=== PATIENT | female | born 1945 | race Caucasian/White ===

== ENCOUNTER → 2016-11-05 | Day surgery (SDC) | payer OTHER ==
[2016-11-03 08:39] VITALS: Ht 157.5 cm; Wt 70.9 kg
[~2016-11-05] VITALS: Ht 157.5 cm; Wt 70.9 kg
[~2016-11-05] MED LIST: ACET-1256 PO; ACET-24 PO; ASPEC81 PO; CALCTAB7 PO; CLN150 PO; CLOP1TAB15 PO; FRRG PO; GLC/500 PO; GLC500 PO; GLIP-199 PO; GLIP1TAB85 PO; HYDR25TA5 PO; IOPAMIDOL INJ 61% 15 ML VIAL ONE; LAMO100T PO; LEVO112T4 PO; LIDOCAINE HCL 1% MPF 5 ML VIAL ONE; LPT40 PO; MULT-890 PO; PLV75 PO; SODIUM CHLORIDE 0.9% INJ 10 ML VIAL ONE; ULT50X PO; ZONI100C39 PO
--- NOTE | 2016-11-05 14:15 | History & Physical Bridge - [place] ---
H&P Re-Evaluation Bridge Note: I have examined the patient, reviewed the History & Physical and in the interval since the performance of the History & Physical I have noted the following changes of clinical significance: No changes noted
[2016-11-05 14:58] VITALS: TEMP 36.6
--- NOTE | 2016-11-05 15:04 | Discharge Instructions ---
Discharge Instructions Visit Reason for Visit: Lumbar Radiculopathy Discharge Discharge Diagnosis / Problem: Stenosis with radiculopathy Discharge Goals Goal(s): Decrease discomfort, Improve function Medications Stopped Medications Name(s): plavix stopped. last dose on wednesday. Activity Recommendations Activity Limitations: resume your previous activity Anesthesia . Post Anesthesia Instructions: If you have had General Anesthesia or IV Sedation: * Do not drive today. * Resume driving when surgeon permits. * Do not make important decisions or sign legal documents today. * Call surgeon for: 1. Temperature elevations greater than 101 degrees F. 2. Uncontrollable pain. 3. Excessive bleeding. 4. Persistent nausea and vomiting. 5. Medication intolerance (nausea, vomiting or rash). * For nausea and vomiting use only clear liquids such as: tea, soda, bouillon until nausea subsides, then gradually increase diet as tolerated. * If you have any concerns or questions, call your surgeon's office. If physician is unavailable and it is an emergency, call 911 or go to the nearest emergency room. . Diet Recommendations Recommended Home Diet: resume previous diet Procedures Procedures Performed: Lumbar Epidural Steroid Injection. Changed to caudal aproach due to patient position. Pending Studies Studies pending at discharge: no Medical Emergencies . Who to Call and When: Medical Emergencies: If at any time you feel your situation is an emergency, please call 911 immediately. . Non-Emergent Contact Non-Emergency issues call your: Specialist . . "Provider Documentation" section prepared by Cholo Castillo.
[2016-11-05 15:11] VITALS: BP 150/68; PULSE 70; O2SAT 97
--- NOTE | 2016-11-05 15:14 | OPERATIVE REPORT ---
DATE OF OPERATION: 11/05/2016 PREOPERATIVE DIAGNOSIS: Severe lumbar stenosis with right lower extremity radiculopathy. POSTOPERATIVE DIAGNOSIS: Same. PROCEDURE: Caudal epidural steroid injection under fluoroscopic guidance. INDICATIONS FOR PROCEDURE: The patient is a 71-year-old white female who underwent an epidural steroid injection in 2005 with relief of right lower extremity radiculopathy. She presents today with similar pain that is problematic to her. She presents today for an epidural injection to provide her with relief. PHYSICAL EXAMINATION: Pleasant female seated comfortably in no apparent distress. She has some point tenderness to palpation of her right sciatic notch. She has no focal weakness of lower extremities and intact sensation. CONSENT: Verbal and written consent was obtained from the patient. Risks and benefits were reviewed. Risks include but are not limited to epidural abscess, epidural hematoma, allergic reaction, dural puncture. The patient wishes to proceed. DESCRIPTION OF PROCEDURE: The patient was taken back to the special procedures room of the [facility] where she was maintained in a prone position as best was able. She was unable to lay flatly prone and was angled about 30 degrees secondary to a shoulder difficulties. Attempt was made to try to enter at the L5-S1 intralaminar space on the right but given the challenges with positioning, it could not be advanced. Decision was then made to enter via a caudal approach and this side was then cleansed with Betadine x3 and anesthetized with additional 1 mL of lidocaine 1%, 25-gauge 1.5-inch needle and then a 25-gauge 3.5-inch spinal needle was then used to enter the hiatus and advanced along the canal. This was confirmed with lateral views. She then underwent injection after negative aspiration of 40 mg of Depo-Medrol and 4 mL of preservative free sodium chloride. Procedure was well tolerated. DISPOSITION: 1. The patient is taken out into the discharge recovery area where she will be discharged home once discharge criteria have been met. 2. Follow up in the [facility] office in 2-4 weeks. I attest to the content of the Intraoperative Record and any orders documented therein. Any exceptio ns are noted below.
== END | disposition home or self-care (01) ==
LOC: X.SURG 13:30
PROVIDERS: ATTEND Physical Medicine & Rehabilitation
DX: M54.16 Radiculopathy, lumbar region (principal); E11.9 Type 2 diabetes mellitus without complications; E78.5 Hyperlipidemia, unspecified; I10 Essential (primary) hypertension; E03.9 Hypothyroidism, unspecified; K21.9 Gastro-esophageal reflux disease without esophagitis; Z90.710 Acquired absence of both cervix and uterus; Z90.49 Acquired absence of other specified parts of digestive tract; Z88.5 Allergy status to narcotic agent

== ENCOUNTER 2016-11-06 16:22 | Emergency (ER) | payer OTHER ==
[~2016-11-06] VITALS: Ht 154.9 cm; Wt 68.3 kg
[~2016-11-06 16:22] MED LIST changes: -ACET-1256 PO; -ACET-24 PO; -ASPEC81 PO; -CLOP1TAB15 PO; -FRRG PO; -GLC/500 PO; -IOPAMIDOL INJ 61% 15 ML VIAL ONE; -LIDOCAINE HCL 1% MPF 5 ML VIAL ONE; -MULT-890 PO; -SODIUM CHLORIDE 0.9% INJ 10 ML VIAL ONE; -ULT50X PO
[2016-11-06 16:27] VITALS: TEMP 36.6; Ht 154.9 cm; Wt 68.3 kg
[2016-11-06] MEDS ORDERED: ACET-1256 PO (16:44)
[2016-11-06] MEDS ORDERED: TRAMADOL HCL 50 MG TAB PO STA (17:10)
[2016-11-06] MEDS ORDERED: LIDOCAINE/EPINEPHRINE 1% 20 ML VIAL INFIL ONE (18:15)
--- NOTE | 2016-11-06 18:17 | DIAGNOSTIC IMAGING REPORT ---
CT OF THE HEAD WITHOUT CONTRAST CLINICAL HISTORY: Fall. COMPARISON STUDY: Head CT May 29, 2013. CT DOSE: 1017.19 mGy.cm TECHNIQUE: Helical axial images of the head were obtained without IV contrast. Automated exposure control was utilized for the study. FINDINGS: No acute intracranial hemorrhage, midline shift or mass effect is present. Ventricular system is normal. The basilar cisterns are patent. There are no extra-axial collections. 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 There is marked cerebellar atrophy. This is unchanged. No calvarial fracture is present. There is a small left posterior scalp contusion. IMPRESSION: 1. No acute intracranial findings. No change in appearance of the brain. 2. Left posterior scalp contusion. No calvarial fracture. Electronically signed by: Aakash Jaramillo M.D. 11/06/2016 6:15 PM Dictated Date/Time: 11/06/2016 6:11 PM
[2016-11-06 18:25] VITALS: BP 132/74; PULSE 68; O2SAT 99
--- NOTE | 2016-11-06 18:30 | DIAGNOSTIC IMAGING REPORT ---
CT OF THE CERVICAL SPINE WITHOUT CONTRAST CLINICAL HISTORY: Fall. COMPARISON STUDY: Cervical spine CT September 25, 2012. TECHNIQUE: Helical axial images of the cervical spine were obtained without IV contrast. Sagittal and coronal reconstructions were viewed. FINDINGS: No acute fracture is identified. Marked degenerative changes at the C1-C2 articulation are present. There is moderate multilevel degenerative disc disease and severe multilevel facet arthrosis. There is no prevertebral edema. No pneumothorax is shown within visualized portions of the lung apices. The craniocervical junction is intact. IMPRESSION: No acute cervical spine fracture or subluxation. Electronically signed by: Aakash Jaramillo M.D. 11/06/2016 6:28 PM Dictated Date/Time: 11/06/2016 6:25 PM
--- NOTE | 2016-11-06 18:53 | EMERGENCY ROOM VISIT NOTE ---
ED Visit Note 71-year-old female who I was asked by Dr. Collins, ED attending physician, to perform a scalp laceration repair. Please see his dictation for further treatment and final disposition. PROCEDURE NOTE: Examination of the left upper occiput shows a 1 cm vertical laceration without active bleeding or hematoma formation. The patient provided verbal consent for laceration repair under local anesthesia. Using lidocaine 1 % with epinephrine, good local anesthesia was administered. The wound was then cleansed with iodine, then lightly irrigated with normal saline. The wound was then approximated with bee 3. Bacitracin was applied. The patient tolerated the procedure well.
--- NOTE | 2016-11-06 19:22 | EMERGENCY ROOM VISIT NOTE ---
History Report prepared by Edouard: Yasmine Arana Under the Supervision of: Dr. Sudeep Collins D.O. First contact with patient: 16:23 Chief Complaint: FALL Stated Complaint: FALL, LACERATION TO BACK OF HEAD History of Present Illness The patient is a 71 year old female who presents to the Emergency Room with complaints of a sudden fall that occurred just prior to arrival. The patient states that she was talking to someone about her sciatica and she states that she lost her balance that caused her to fall backwards and hit her head. She notes pain to the back of her head today, but denies any loss of consciousness. The patient states that she always ambulates with a walker, but denies falling frequently. She states that she stopped her Plavix five days ago for an upcoming procedure. The patient states that her tetanus status is up to date. Pt denies headache, change in vision, fevers, chest pain, shortness of breath, nausea, vomiting, diarrhea, pain with urination, and melena. Source of History: patient Onset: prior to arrival Position: other (global) Quality: other (fall) Timing: other (sudden) Associated Symptoms: No LOC Note: Associated Symptoms: pain to back of head. Review of Systems See HPI for pertinent positives & negatives. A total of 10 systems reviewed and were otherwise negative. Past Medical & Surgical Medical Problems: (1) Benign hypertension (2) Diabetes mellitus (3) Epilepsy Surgical Problems: (1) H/O total knee replacement Family History FH: heart disease Social History Smoking Status: Never Smoker Alcohol Use: none Marital Status: Occupation Status: retired Current/Historical Medications Scheduled Atorvastatin (Atorvastatin Calcium), 40 MG PO DAILY Calcium Carbonate-Vitamin D W/ (Caltrate 600 Plus), 1 TAB PO BID Clopidogrel Bisulfate (Clopidogrel), 75 MG PO DAILY Glipizide (Glipizide Er), 1 TAB PO QAM Glipizide Xl (Glucotrol Xl), 10 MG PO BID Hydrochlorothiazide (Hydrochlorothiazide), 25 MG PO QAM Lamotrigine (Lamictal), 100 MG PO BID Levothyroxine Sodium (Levothyroxine Sodium), 112 MCG PO QAM Metformin HCl (Metformin HCl), 500 MG PO QAM Sulindac (Sulindac), 150 MG PO QAM Zonisamide (Zonegran), 200 MG PO BID Scheduled PRN Acetaminophen (Tylenol), 1,000 MG PO DIRECTED PRN for Pain Allergies Coded Allergies: Morphine (Verified Allergy, Unknown, nausea/vomiting, 11/06/16) Omeprazole (Verified Allergy, Unknown, throat swelling, 11/06/16) Oxycodone (Verified Allergy, Unknown, nausea/vomiting, 11/06/16) Codeine (Verified Adverse Reaction, Unknown, NAUSEA/VOMITING, 11/06/16) Physical Exam Vital Signs Date Time Temp Pulse Resp B/P Pulse Ox O2 Delivery O2 Flow Rate FiO2 11/06/16 18:25 68 18 132/74 99 Room Air 11/06/16 17:30 78 16 147/80 98 Room Air 11/06/16 16:27 36.6 74 18 153/66 99 Room Air Physical Exam GENERAL: alert, well appearing, well nourished, no distress, non-toxic HEAD: 2 cm laceration to the left posterior occiput with no active bleeding. EYE EXAM: normal conjunctiva, PERRL and EOM's grossly intact OROPHARYNX: no exudate, no erythema, lips, buccal mucosa, and tongue normal and mucous membranes are moist EARS: TMs clear b/l NECK: supple, no nuchal rigidity, no adenopathy, non-tender CHEST: stable to compression anteriorly and posteriorly LUNGS: clear to auscultation. Normal chest wall mechanics HEART: no murmurs, S1 normal and S2 normal ABDOMEN: abdomen soft, non-tender, normo-active bowel sounds, no masses, no rebound or guarding. PELVIS: stable to compression anteriorly and posteriorly BACK: Back is symmetrical on inspection and there is no deformity, no midline tenderness, no CVA tenderness. UPPER EXTREMITIES: full active and passive range of motion of all joints without tenderness to palpation LOWER EXTREMITIES: full active and passive range of motion of all joints without tenderness to palpation NEURO EXAM: Normal sensorium, cranial nerves II-XII grossly intact, normal speech, no gross weakness of arms, no gross weakness of legs. GCS: 15. Medical Decision & Procedures ER Provider Diagnostic Interpretation: CT:Per my review, radiologist interpretation. CT OF THE HEAD WITHOUT CONTRAST CLINICAL HISTORY: Fall. COMPARISON STUDY: Head CT May 29, 2013. CT DOSE: 1017.19 mGy.cm TECHNIQUE: Helical axial images of the head were obtained without IV contrast. Automated exposure control was utilized for the study. FINDINGS: No acute intracranial hemorrhage, midline shift or mass effect is present. Ventricular system is normal. The basilar cisterns are patent. There are no extra-axial collections. 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 There is marked cerebellar atrophy. This is unchanged. No calvarial fracture is present. There is a small left posterior scalp contusion. IMPRESSION: 1. No acute intracranial findings. No change in appearance of the brain. 2. Left posterior scalp contusion. No calvarial fracture. Electronically signed by: Aakash Jaramillo M.D. 11/06/2016 6:15 PM Dictated Date/Time: 11/06/2016 6:[address] OF THE CERVICAL SPINE WITHOUT CONTRAST CLINICAL HISTORY: Fall. COMPARISON STUDY: Cervical spine CT September 25, 2012. TECHNIQUE: Helical axial images of the cervical spine were obtained without IV contrast. Sagittal and coronal reconstructions were viewed. FINDINGS: No acute fracture is identified. Marked degenerative changes at the C1-C2 articulation are present. There is moderate multilevel degenerative disc disease and severe multilevel facet arthrosis. There is no prevertebral edema. No pneumothorax is shown within visualized portions of the lung apices. The craniocervical junction is intact. IMPRESSION: No acute cervical spine fracture or subluxation. Electronically signed by: Aakash Jaraimllo M.D. 11/06/2016 6:28 PM Dictated Date/Time: 11/06/2016 6:25 PM Medications Administered Medications (Trade) Dose Ordered Sig/Anna Route Start Time Stop Time Status Last Admin Dose Admin Tramadol HCl (Ultram Tab) 50 mg NOW STAT PO 11/06/16 17:10 11/06/16 17:11 DC 11/06/16 17:10 50 MG ED Course ED COURSE: Vital signs were reviewed and showed hypertensive The patients medical record was reviewed The above diagnostic studies were performed and reviewed. ED treatments and interventions as stated above. 1624: The patient was evaluated in room C2A. A complete history and physical examination was performed. 1710: Ordered Ultram Tab 50 mg PO. 1815: Ordered Lidocaine/Epinephrine 20 ml INFIL. 1830: The laceration repair was performed by Miguel Schreiber PA-C. See his note for further detail. 1846: Upon reevaluation, the patient is resting comfortably.I discussed my findings with the patient and she understands and agrees with the treatment plan. Based on the patients age, coexisting illnesses, exam and lab findings the decision to treat as an outpatient was made. The patient remained stable while under my care. The patient appeared well at the time of discharge. Medical Decision Differential diagnoses include major intracranial, cervical, spinal, thoracic, abdominal, pelvic and neurologic injury. Fracture, contusion, sprain, strain, laceration, abrasions included as well. Patient is a 71-year-old female who notes that she was at her balance that presents the ER stating that she fell backwards and hit her head. She denies any loss consciousness. She has no complaints at this time. She normal takes Plavix but has not taken for the past 5 days. On exam she has a mild 3 cm laceration without venous oozing. This was repaired by my PA. CT head and neck was negative. Tetanus was updated in the past 2 years. Patient has no other complaints. Discussed with Pt concerning signs and symptoms to watch out for. Pt was instructed to follow up with their PCP and discussed with the patient their option to return to the ED at anytime for persistent or worsening symptoms. The appropriate anticipatory guidance and out-patient management, including indications for return to the emergency department, were explained at length to the patient and understood. Impression Primary Impression: Contusion of head Additional Impression: Fall Scribe Attestation The scribe's documentation has been prepared under my direction and personally reviewed by me in its entirety. I confirm that the note above accurately reflects all work, treatment, procedures, and medical decision making performed by me. Departure Information Dispostion Home / Self-Care Referrals Sabrina Hood D.O. (PCP) Forms HOME CARE DOCUMENTATION FORM, IMPORTANT VISIT INFORMATION Patient Instructions A Signature Page, ED Head Injury Closed, My [facility] Additional Instructions Please follow up with your primary care doctor with in the next 24 hours. Any worsening of your symptoms, please return to the ED immediately. This includes any confusion, weakness, dizziness, headache, neck pain or any other concerning signs or symptoms from your standpoint. Please have stables removed in 7-10 days by either the ER or at your primary care doctor's office..
== END 2016-11-06 18:58 | disposition home or self-care (01) ==
LOC: EDBD 16:22 → C.EDC 16:24
DX: S00.83XA Contusion of other part of head, initial encounter (principal); S01.91XA Laceration without foreign body of unspecified part of head, initial encounter; I10 Essential (primary) hypertension; E11.9 Type 2 diabetes mellitus without complications; G40.909 Epilepsy, unspecified, not intractable, without status epilepticus; Z79.84 Long term (current) use of oral hypoglycemic drugs; Z79.899 Other long term (current) drug therapy; Z88.5 Allergy status to narcotic agent; Z88.6 Allergy status to analgesic agent; Z88.8 Allergy status to other drugs, medicaments and biological substances; W19.XXXA Unspecified fall, initial encounter

== ENCOUNTER 2016-11-17 16:19 | Emergency (ER) | payer OTHER ==
[~2016-11-17] VITALS: Ht 157.5 cm; Wt 97.0 kg
[~2016-11-17 16:19] MED LIST changes: +ACET-1256 PO
[2016-11-17] MEDS ORDERED: GLC/500 PO (16:25)
[2016-11-17] MEDS ORDERED: CLOP1TAB15 PO (16:26)
[2016-11-17 16:29] VITALS: BP 129/67; PULSE 74; TEMP 36.7; O2SAT 95; Ht 157.5 cm; Wt 97.0 kg
--- NOTE | 2016-11-17 16:47 | EMERGENCY ROOM VISIT NOTE ---
ED Visit Note First contact with patient: 16:40 CHIEF COMPLAINT: Staple removal from head HISTORY of present illness: This patient returns to the ED today for removal of bee that were placed 11 days ago in the back of her head.. There has been no swelling, redness, or drainage from the wound. The patient feels like the laceration is healing well. REVIEW OF SYSTEMS: 6 system review was performed and was negative unless stated otherwise in history of present illness. PMH: The patient is healthy; EMR was reviewed and are no changes from prior ER visit SOCIAL HISTORY: No change from prior ER visit. PHYSICAL EXAM: Vital Signs: Were reviewed Reviewed Nurse's notes. GEN.: 71-year -old white female appears in no acute distress. MENTAL Status: Alert and oriented 3. There is a stapled wound on the left posterior aspect with no signs of infection. There is no erythema, swelling, or tenderness. EMERGENCY DEPARTMENT COURSE: The bee were removed without any difficulty and there was no separation of the wound edges. DIAGNOSIS: Healing scalp laceration and stable removal DISCHARGE INSTRUCTIONS AND TREATMENT: Wash any remaining crusts off of the wound today and resume your normal activities. Problem List Medical Problems: (1) Benign hypertension Status: Chronic (2) Diabetes mellitus Status: Chronic (3) Epilepsy Status: Chronic Surgical Problems: (1) H/O total knee replacement Status: Resolved Current/Historical Medications Scheduled Atorvastatin (Atorvastatin Calcium), 40 MG PO DAILY Calcium Carbonate-Vitamin D W/ (Caltrate 600 Plus), 1 TAB PO BID Clopidogrel (Plavix), 75 MG PO DAILY Glipizide (Glipizide Er), 1 TAB PO QAM Glipizide Xl (Glucotrol Xl), 10 MG PO BID Hydrochlorothiazide (Hydrochlorothiazide), 25 MG PO QAM Lamotrigine (Lamictal), 100 MG PO BID Levothyroxine Sodium (Levothyroxine Sodium), 112 MCG PO QAM Metformin Hcl (Glucophage), 500 MG PO QAM Sulindac (Sulindac), 150 MG PO QAM Zonisamide (Zonegran), 200 MG PO BID Scheduled PRN Acetaminophen (Tylenol), 1,000 MG PO DIRECTED PRN for Pain Allergies Coded Allergies: Morphine (Verified Allergy, Unknown, nausea/vomiting, 11/06/16) Omeprazole (Verified Allergy, Unknown, throat swelling, 11/06/16) Oxycodone (Verified Allergy, Unknown, nausea/vomiting, 11/06/16) Codeine (Verified Adverse Reaction, Unknown, NAUSEA/VOMITING, 11/06/16) Vital Signs Date Time Temp Pulse Resp B/P Pulse Ox O2 Delivery O2 Flow Rate FiO2 11/17/16 16:29 36.7 74 20 129/67 95 Room Air Departure Information Referrals Sabrina Hood D.O. (PCP) Patient Instructions [facility]
== END 2016-11-17 16:54 | disposition home or self-care (01) ==
LOC: C.EDB 16:21 → C.EDD 16:54
DX: S01.01XD Laceration without foreign body of scalp, subsequent encounter (principal); X58.XXXD Exposure to other specified factors, subsequent encounter; I10 Essential (primary) hypertension; E11.9 Type 2 diabetes mellitus without complications; G40.909 Epilepsy, unspecified, not intractable, without status epilepticus; Z79.02 Long term (current) use of antithrombotics/antiplatelets; Z79.899 Other long term (current) drug therapy

== ENCOUNTER → 2016-11-27 | Outpatient (CLI) | payer OTHER ==
[~2016-11-27] MED LIST changes: +ACET-24 PO; +ASPEC81 PO; +CLOP1TAB15 PO; +FRRG PO; +GLC/500 PO; -GLC500 PO; +MULT-890 PO; -PLV75 PO; +ULT50X PO
== END | disposition home or self-care (01) ==
LOC: C.RDSM 11:15
PROVIDERS: ATTEND Physical Medicine & Rehabilitation Sports Medicine
DX: M25.522 Pain in left elbow (principal)

== ENCOUNTER 2017-05-20 05:41 | Inpatient (IN) | payer OTHER ==
[2017-05-05 11:22] VITALS: BMI 29.0
--- NOTE | 2017-05-05 12:00 | PAT Medication Instructions ---
Service Date May 05, 2017. Current Home Medication List Acetaminophen (Tylenol), 500 MG PO DIRECTED PRN for Pain Atorvastatin (Atorvastatin Calcium), 40 MG PO HS Calcium Carbonate-Vitamin D W/ (Caltrate 600 Plus), 1 TAB PO QAM Clopidogrel (Plavix), 75 MG PO QAM Glipizide (Glipizide Er), 1 TAB PO QAM Hydrochlorothiazide (Hydrochlorothiazide), 25 MG PO QAM Lamotrigine (Lamictal), 100 MG PO BID Levothyroxine Sodium (Levothyroxine Sodium), 112 MCG PO QAM Metformin Hcl (Glucophage), 500 MG PO QAM Sulindac (Sulindac), 150 MG PO QAM Zonisamide (Zonegran), 200 MG PO BID Medication Instructions For Your Scheduled Surgery - Instructions to be given by prescribing physician: Clopidogrel (Plavix), 75 MG PO QAM - Hold the following medications 48 hours prior to surgery: Metformin Hcl (Glucophage), 500 MG PO QAM - Hold the following medications the morning of surgery: Glipizide (Glipizide Er), 1 TAB PO QAM Hydrochlorothiazide (Hydrochlorothiazide), 25 MG PO QAM Calcium Carbonate-Vitamin D W/ (Caltrate 600 Plus), 1 TAB PO QAM Sulindac (Sulindac), 150 MG PO QAM (otherwise nothing to eat or drink after midnight) - Take the following medications the morning of surgery with a sip of water OTHERWISE NOTHING TO EAT OR DRINK AFTER MIDNIGHT: Lamotrigine (Lamictal), 100 MG PO BID Zonisamide (Zonegran), 200 MG PO BID Levothyroxine Sodium (Levothyroxine Sodium), 112 MCG PO QAM Acetaminophen (Tylenol), 500 MG PO DIRECTED PRN for Pain (may take if needed up to 4 hours prior to surgery) - Take the following medications as scheduled the night before surgery: Lamotrigine (Lamictal), 100 MG PO BID Zonisamide (Zonegran), 200 MG PO BID Atorvastatin (Atorvastatin Calcium), 40 MG PO HS Acetaminophen (Tylenol), 500 MG PO DIRECTED PRN for Pain If you have any questions please call us at [phone] or [phone] or [phone]
--- NOTE | 2017-05-05 13:07 | DIAGNOSTIC IMAGING REPORT ---
CHEST PREADMISSION(PA/LAT) HISTORY: 72-year-old female presents for preoperative exam. COMPARISON: Chest radiograph 07/17/2014. TECHNIQUE: Frontal and lateral views of the chest. FINDINGS: The lateral view is suboptimal secondary to positioning of patient's upper extremities. Frontal view is limited by the side bent and rotated position of the patient. The cardiac silhouette is upper limits of normal. There is no pneumothorax, pleural effusion, focal airspace consolidation or overt pulmonary edema identified. Remote fracture deformities are present involving the bilateral proximal humeri. Advanced degenerative changes are present within the glenohumeral joints bilaterally. IMPRESSION: No acute cardiac pulmonary process. Electronically signed by: Bong Angel 05/05/2017 1:05 PM Dictated Date/Time: 05/05/2017 12:56 PM
[2017-05-05 13:21] LABS: BASO % 0.3 %; BASO ABS # 0.02 K/uL (0-0.2); COMPLETE YES; EOS % 1.9 %; HEMATOCRIT 39.2 % (37-47); IG% 0.1 %; LYMPH % 17.1 %; LYMPH ABS # 1.35 K/uL (1.2-3.4); MEAN CELL VOLUME 95.6 fL (80-100); MEAN CORPUSCULAR HEMOGLOBIN 31.2 pg (25-34); MEAN CORPUSCULAR HGB CONC 32.7 g/dl (32-36); MONO % 6.8 %; NEUT % 73.8 %; PLATELET COUNT 227 K/uL (130-400)
[2017-05-05 13:31] LABS: PROTHROMBIN TIME (PATIENT) 10.5 SECONDS (9.0-12.0)
[2017-05-05 13:40] LABS: URINE APPEARANCE CLEAR (CLEAR); URINE BILIRUBIN NEG (NEG); URINE COLOR YELLOW; URINE EPITHELIAL CELL AUTO >30 /lpf (0-5); URINE NITRITE NEG (NEG); URINE SPECIFIC GRAVITY 1.017 (1.000-1.030); UROBILINOGEN NEG (NEG); ZZUR CULT IF INDIC CLEAN CATCH NO
[2017-05-05 13:42] LABS: BUN/CREATININE RATIO 16.7 (10-20); CALCIUM 8.9 mg/dl (8.5-10.1); CREATININE 1.4 mg/dl (0.60-1.20); POTASSIUM 3.8 mmol/L (3.5-5.1)
[2017-05-05 13:44] LABS: MANUAL MICROSCOPIC REQUIRED? NO; REVIEW REQ? NO
[2017-05-05 13:47] LABS: ESTIMATED AVERAGE GLUCOSE 197 mg/dl; HA1C FLAG Normal (Normal)
--- NOTE | 2017-05-19 09:20 | History and Physical ---
History & Physical Date May 19, 2017. Chief Complaint Right hip pain History of Present Illness The patient is a 72 year old female with complaints of right hip pain. She had previous trochanteric nail right hip secondary to fracture done by an outside physician. She has significant pain and disability. 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 She is scheduled for removal of trochanteric nail and conversion to total hip arthroplasty. Past Medical/Surgical History Medical Problems: (1) Benign hypertension (2) Diabetes mellitus (3) Epilepsy Surgical Problems: (1) H/O total knee replacement Additional History Hepatic Disease: No Endocrine Disorder: Yes (Type II DM, Hypothyroidism) Kidney Disease: Yes (CKD, stage III) Hypertension: Yes Heart Disease: No Bleeding Tendencies: No Infectious Diseases: No Other: GERD, Hyperlipidemia, Peripheral artery disease, Seizure disorder Allergies Coded Allergies: Omeprazole (Verified Allergy, Unknown, throat swelling, 05/05/17) Codeine (Unverified Adverse Reaction, Unknown, NAUSEA/VOMITING, 05/18/17) Morphine (Verified Adverse Reaction, Unknown, nausea/vomiting, 05/18/17) Oxycodone (Verified Adverse Reaction, Unknown, nausea/vomiting, 05/18/17) Home Medications Scheduled Atorvastatin (Atorvastatin Calcium), 40 MG PO HS Calcium Carbonate-Vitamin D W/ (Caltrate 600 Plus), 1 TAB PO QAM Clopidogrel (Plavix), 75 MG PO QAM Glipizide (Glipizide Er), 1 TAB PO QAM Hydrochlorothiazide (Hydrochlorothiazide), 25 MG PO QAM Lamotrigine (Lamictal), 100 MG PO BID Levothyroxine Sodium (Levothyroxine Sodium), 112 MCG PO QAM Metformin Hcl (Glucophage), 500 MG PO QAM Sulindac (Sulindac), 150 MG PO QAM Zonisamide (Zonegran), 200 MG PO BID Scheduled PRN Acetaminophen (Tylenol), 500 MG PO DIRECTED PRN for Pain Physical Examination Skin: warm/dry Eyes: normal inspection, EOMI ENT: normal ENT inspection Head: normocephalic Neck: supple, no adenopathy Respiratory/Chest: lungs clear Cardiovascular: regular rate, rhythm Abdomen / GI: normal bowel sounds Extremities: + pertinent finding (Right hip decreased active and passive ROM, painful ROM) Diagnosis Failed trochanteric nail right hip Plan of Treatment Removal trochanteric nail, conversion to total hip arthroplasty right
[2017-05-20] VITALS (10 sets, daily range): BP systolic 101–131; BP diastolic 55–70; PULSE 58–73; TEMP 36.2–36.7; O2SAT 90–100; Ht 157.5 cm; Wt 72.3 kg
[~2017-05-20] VITALS: Ht 157.5 cm; Wt 72.3 kg
[~2017-05-20 05:41] MED LIST changes: -ACET-24 PO; -ASPEC81 PO; -FRRG PO; -GLIP1TAB85 PO; -MULT-890 PO; -ULT50X PO
[2017-05-20] MEDS ORDERED: FAMOTIDINE 20 MG TAB PO SCH (06:00)
[2017-05-20] MEDS ORDERED: GABAPENTIN 300 MG CAP PO SCH (06:00)
[2017-05-20] MEDS: ROPIVACAINE 5MG/ML 30 ML 150 MG, BUPIVACAINE/EPINEPHR 0.5% MPF 30 ML, KETOROLAC TROMETH... INFIL SCH ×14 (06:00→09:19)
[2017-05-20] MEDS: LACTATED RINGER'S 1000ML 1,000 ML IV SCH ×2 (06:00→06:45)
[2017-05-20] MEDS ORDERED: CEFAZOLIN 1000MG/55 ML D5W 55 ML IV SCH (06:00)
[2017-05-20] MEDS ORDERED: DEXAMETHASONE 4 MG TAB PO SCH (06:00)
[2017-05-20] MEDS ORDERED: METOCLOPRAMIDE HCL 10 MG TAB PO SCH (06:00)
[2017-05-20] MEDS ORDERED: ACETAMINOPHEN 500 MG TAB PO SCH (06:00)
[2017-05-20] MEDS ORDERED: CeleBREX 200 MG CAP PO SCH (06:00)
[2017-05-20] MEDS ORDERED: LACTATED RINGER'S 1000ML 1,000 ML IV SCH (06:00)
[2017-05-20] MEDS ORDERED: BUPIVACAINE 0.5 % 5 MG/1 ML PF 10ML VIAL ONE (06:25)
[2017-05-20] MEDS: TRANEXAMIC ACID INJ 1,000 MG in SODIUM CHLORIDE 0.9% 100ML 100 ML IV SCH ×2 (06:30→07:04)
[2017-05-20] MEDS ORDERED: LIDOCAINE HCL 2% 2 ML VIAL (20MG/ML) ONE (06:39)
[2017-05-20] MEDS ORDERED: MIDAZOLAM HCL 1 MG/ML 2ML VIAL ONE (06:39)
[2017-05-20] MEDS ORDERED: FENTANYL CITRATE INJ 50 MCG/1 ML 2 ML VIAL ONE ×2 (06:39→07:56)
[2017-05-20] MEDS ORDERED: PROPOFOL IV EMULSION 10 MG/ML 20 ML VIAL IV ONE (06:39)
[2017-05-20] MEDS ORDERED: BACITRACIN 50000 UNIT VIAL ONE (06:55)
[2017-05-20] MEDS ORDERED: DEXAMETHASONE INJ 10 MG in SYRINGE 0 ML IV ONE (07:30)
[2017-05-20] MEDS ORDERED: NEOSTIGMINE METHYLSULFATE 5 MG/5 ML SYR ONE (07:56)
[2017-05-20] MEDS ORDERED: ROCURONIUM BROMIDE 10 MG/ML 5 ML VIAL ONE (07:56)
[2017-05-20] MEDS ORDERED: DEXAMETHASONE SOD INJ 4 MG/ML VIAL ONE (07:56)
[2017-05-20] MEDS ORDERED: GLYCOPYRROLATE INJ 0.2 MG/ML VIAL ONE (07:56)
[2017-05-20] MEDS ORDERED: ONDANSETRON INJ 2 MG/ML 2 ML VIAL ONE (07:56)
[2017-05-20] MEDS ORDERED: ATROPINE SULFATE 0.1 MG/ML 5ML SYR IV PRN (08:00)
[2017-05-20] MEDS ORDERED: ONDANSETRON INJ 2 MG/ML 2 ML VIAL IV PRN ×2 (08:00→09:45)
[2017-05-20] MEDS ORDERED: FENTANYL CITRATE INJ 50 MCG/1 ML 2 ML VIAL IV PRN (08:00)
[2017-05-20] MEDS ORDERED: HYDROmorphone INJ 1 MG/ML SYR IV PRN ×2 (08:00→09:45)
[2017-05-20] MEDS ORDERED: EpHEDrine SULFATE INJ 50 MG/ML AMP IV PRN (08:00)
[2017-05-20] MEDS ORDERED: NURSING VERBAL MED ORDER STA (08:32)
[2017-05-20] MEDS ORDERED: POVIDONE-IODINE OP SOLN 30 ML BTL ONE (08:36)
[2017-05-20] MEDS ORDERED: ROPIVACAINE 5MG/ML 30 ML 150 MG, BUPIVACAINE/EPINEPHR 0.5% MPF 30 ML, DEXAMETHASONE INJ... INFIL SCH ×6 (09:00)
--- NOTE | 2017-05-20 09:14 | [facility] Operative Report ---
Operative Report Operative Date May 20, 2017. Pre-Operative Diagnosis Failed trochanteric nail right hip Post-Operative Diagnosis Failed trochanteric nail right hip Procedure(s) Performed Removal right trochanteric nail, conversion to right total hip arthroplasty patient was placed left lateral decubitus position and the right hip was prepped and draped in usual sterile manner." Lung but incision was made some changes Stacy retroseptal with cartilage hemostasis the fascia was incised throughout the length and wound and attention was first turned to the greater trochanter where abductors were split and taken down to bone and the proximal end of the femoral nail was identified. Flexible screwdriver was placed unlock the trochanteric nail. Once this was accomplished turned to the helical blade this was removed using the slap hammer. Following this the intramedullary alejandro was removed. Next the foot up for rotators were divided from the posterior aspect of the femur using electrocautery extremely shortened scarred was noted. Femoral head was completely destroyed to the point of being nearly absent. The femoral neck was osteotomized at the level of the lesser trochanter and this bone was removed. Attention was turned to the acetabulum where a long knife were used to remove fibrous labrum. Large defect in the acetabulum was noted. Acetabulum was reamed up to size 50 this gave good subchondral bone exposure. A femoral head allograft is thawed and reamed creating cancellus allograft reamings and these were packed into the bony defect in the acetabulum. The 50 reamer was then again placed and reamed on reverse and the 50 cup was impacted into position cup was stable. This was fixed using a single 30 mm cancellous bone screw. A elevated posterior wall liner was placed and checked with a Ferguson elevator and stable. Next attention was turned to the proximal femur where a box osteotome was used to open the canal and the canal finder inserted. Once a raspings were taken up to size 4 this was reduced with a -5 neck was found only come to 45 of extension. Rasp was removed approximately proximal osteotomy was revised to the mid level of the lesser trochanter. The iliopsoas tendon was transected. Raspings were then taken up again to size 2 and a -5 neck was inserted reduction was easy this time still the patient had a 15 flexion contracture of note was that the patient's knee would only flex to 80 as well. The trial was removed and the final 2 was -5 x 36 mm head was impacted in position. Hip was reduced was taken through full range of motion and motion is stable to 90 of flexion and 45 of internal rotation. The wound was irrigated with pulsatile irrigation Hemovac drain was placed fascia was closed using #1 Vicryl subcutaneous tissue was closed reduction and the skin was closed sip strip. Sterile dressing of [place] was applied patient tolerated the procedure well histology assistant was Ricky Clark MrYeyo Chi was essential throughout portions the case including positioning prepping draping surgical-assist wound closure and dressing application. Surgeon Dr. Jose Econometrician Surgeon(s) Ricky Clark PA-C Estimated Blood Loss 250cc Findings abscent femoral head with large acetabular defect Specimens A: Explanted hardware Disposition Recovery Room / PACU I attest to the content of the Intraoperative Record and any orders documented therein. Any exceptions are noted below.
[2017-05-20] MEDS ORDERED: HYDROmorphone INJ 2 MG/ML SYR/VIAL ONE (09:21)
[2017-05-20] MEDS ORDERED: ZOLPIDEM TARTRATE 5 MG TAB PO PRN (09:45)
[2017-05-20] MEDS ORDERED: MAGNESIUM HYDROXIDE SUSP 30 ML UDC PO PRN (09:45)
[2017-05-20] MEDS ORDERED: ALUMINUM/MAGNESIUM/SIMETH (MAALOX MAX) 30 ML UDC PO PRN (09:45)
[2017-05-20] MEDS ORDERED: METOCLOPRAMIDE HCL INJ 5 MG/ML 2 ML VIAL IV PRN (09:45)
[2017-05-20] MEDS ORDERED: NURSING VERBAL MED ORDER ONE ×2 (09:55→12:15)
[2017-05-20] MEDS ORDERED: NovoLIN-R INSULIN PER UNIT CHARGE ONE (09:58)
--- NOTE | 2017-05-20 10:32 | Anesthesiology Progress Note ---
Anesthesia Post Op Note Date & Time May 20, 2017 at 10:32 Vital Signs Pain Intensity: 3 Vital Signs Past 12 Hours Date Time Temp Pulse Resp B/P (MAP) Pulse Ox O2 Delivery O2 Flow Rate FiO2 05/20/17 10:30 36.3 66 15 131/54 95 Nasal Cannula 2 05/20/17 10:20 52 11 124/52 92 Nasal Cannula 2 05/20/17 10:10 52 14 140/55 100 Mask 10 05/20/17 10:00 52 11 110/48 100 Mask 10 05/20/17 09:50 67 13 133/52 100 Mask 10 05/20/17 09:44 36.2 65 12 157/64 99 Mask 10 05/20/17 06:10 36.7 73 18 131/60 96 Room Air Notes Mental Status: alert / awake / arousable, participated in evaluation Pt Amnestic to Procedure: Yes Nausea / Vomiting: adequately controlled Pain: adequately controlled Airway Patency, RR, SpO2: stable & adequate BP & HR: stable & adequate Hydration State: stable & adequate Anesthetic Complications: no major complications apparent
[2017-05-20] MEDS ORDERED: D5W AND 1/2NSS + 20MEQ KCL 1,000 ML IV SCH (11:30)
--- NOTE | 2017-05-20 11:34 | Anesthesiology Progress Note ---
Anesthesia Post Op Note Date & Time May 20, 2017 at 11:34 Vital Signs Pain Intensity: 3 Vital Signs Past 12 Hours Date Time Temp Pulse Resp B/P (MAP) Pulse Ox O2 Delivery O2 Flow Rate FiO2 05/20/17 10:40 55 12 126/50 92 Nasal Cannula 2 05/20/17 10:30 36.3 66 15 131/54 95 Nasal Cannula 2 05/20/17 10:20 52 11 124/52 92 Nasal Cannula 2 05/20/17 10:10 52 14 140/55 100 Mask 10 05/20/17 10:00 52 11 110/48 100 Mask 10 05/20/17 09:50 67 13 133/52 100 Mask 10 05/20/17 09:44 36.2 65 12 157/64 99 Mask 10 05/20/17 06:10 36.7 73 18 131/60 96 Room Air Notes Mental Status: alert / awake / arousable, participated in evaluation Pt Amnestic to Procedure: Yes Nausea / Vomiting: adequately controlled Pain: adequately controlled Airway Patency, RR, SpO2: stable & adequate BP & HR: stable & adequate Hydration State: stable & adequate Anesthetic Complications: no major complications apparent
--- NOTE | 2017-05-20 11:42 | DIAGNOSTIC IMAGING REPORT ---
RIGHT PELVIS/UNILATERAL HIP 1 VIEW HISTORY: 72 years Female status post right total hip arthroplasty COMPARISON: Right hip radiographs 01/28/2015 TECHNIQUE: Portable frontal view of the pelvis with crosstable view of the right hip FINDINGS: There has been interval right hip total arthroplasty with removal of the previously noted intramedullary alejandro and dynamic screw. Expected postsurgical swelling and deep tissue air seen about the right hip. Alignment is satisfactory without periprosthetic fracture identified. Skin bee overlie the surgical site as well as a drainage catheter. The bones are moderately demineralized. Moderate to severe osteoarthritis is seen about the left hip. Severe degenerative changes are seen within the lower lumbar spine. IMPRESSION: Status post right hip total arthroplasty with satisfactory alignment. The above report was generated using voice recognition software. It may contain grammatical, syntax or spelling errors. Electronically signed by: Bong Angel M.D. 05/20/2017 11:40 AM Dictated Date/Time: 05/20/2017 11:38 AM
[2017-05-20] MEDS ORDERED: HYDROmorphone INJ 2 MG/ML SYR/VIAL IV PRN (11:45)
[2017-05-20] MEDS ORDERED: GLUCAGON FOR INJ 1 MG VIAL SQ PRN (12:30)
[2017-05-20] MEDS ORDERED: DEXTROSE 50% 50 ML SYR IV PRN (12:30)
[2017-05-20] MEDS ORDERED: GLUCOSE 40% GEL 15 GM TUBE PO PRN (12:30)
[2017-05-20] MEDS ORDERED: DC ALL PREVIOUSLY ORDERED DIABETES MEDS ONE (12:30)
[2017-05-20] MEDS ORDERED: GLUCOSE 10 TABS/TUBE PO PRN (12:30)
[2017-05-20] MEDS: SODIUM CHLORIDE 0.9% 1000ML 1,000 ML IV SCH ×2 (12:50→22:09)
[2017-05-20] MEDS: INSULIN ASPART 100 UNITS/ML 3 ML PEN SC SCH ×3 (13:14→21:48)
--- NOTE | 2017-05-20 13:30 | Medical Consult ---
Consultation Date of Consultation: May 20, 2017. Attending Physician: Jose Alejandro Jose M.D. History of Present Illness This is a 72yo F with DM II with CKD III, bilateral carotid stenosis (s/p L CEA) , HTN, generalized seizure disorder, hypothyroidism, PAD and multi-joint OA who is POD#0 s/p total R hip replacement. Patient underwent a R trochanteric nail procedure but it failed to alleviate symptoms. Patient is doing well post-op, resting comfortably and sleeping intermittently. Is conversational and rates hip pain a 2/10. Denies any fever, chills, headache, CP, SOB, abdominal pain, nausea/vomiting, or pain in lower extremities. Past Medical/Surgical History Medical Problems: (1) Encounter for removal of bee Status: Acute Family History Asthma FATHER Diabetes mellitus MOTHER FH: cancer MOTHER FH: heart disease FATHER MOTHER FH: pulmonary embolism MOTHER Hypertension FATHER MOTHER Social History Smoking Status: Never Smoker Smokeless Tobacco Use: No Alcohol Use: none Marital Status: Housing Status: other ([facility] facility in [place] ) Occupation Status: retired Allergies Coded Allergies: Omeprazole (Verified Allergy, Severe, throat swelling, 05/20/17) Codeine (Unverified Adverse Reaction, Unknown, NAUSEA/VOMITING, 05/20/17) Morphine (Verified Adverse Reaction, Unknown, nausea/vomiting, 05/20/17) Oxycodone (Verified Adverse Reaction, Unknown, nausea/vomiting, 05/20/17) Current Inpatient Medications Current Inpatient Medications Medications (Trade) Dose Ordered Sig/Anna Route Start Time Stop Time Status Last Admin Dose Admin Cefazolin Sodium 55 ml @ 100 mls/hr PREOP IV 05/20/17 06:00 05/20/17 18:00 05/20/17 07:33 100 MLS/HR Acetaminophen (Tylenol Tab) 1,000 mg PREOP PO 05/20/17 06:00 05/20/17 18:00 05/20/17 06:30 1,000 MG Celecoxib (CeleBREX CAP) 200 mg PREOP PO 05/20/17 06:00 05/20/17 18:00 05/20/17 06:30 200 MG Dexamethasone (Decadron Tab) 8 mg PREOP PO 05/20/17 06:00 05/20/17 18:00 05/20/17 06:29 8 MG Famotidine (Pepcid Tab) 20 mg PREOP PO 05/20/17 06:00 05/20/17 18:00 05/20/17 06:29 20 MG Gabapentin (Neurontin Cap) 300 mg PREOP PO 05/20/17 06:00 05/20/17 18:00 05/20/17 06:28 300 MG Metoclopramide HCl (Reglan Tab) 10 mg PREOP PO 05/20/17 06:00 05/20/17 18:00 05/20/17 06:29 10 MG Tranexamic Acid 1000 mg/Sodium Chloride 110 ml @ 660 mls/hr TODAY@06,0630 IV 05/20/17 06:00 05/20/17 18:00 05/20/17 07:04 660 MLS/HR Fentanyl Citrate (Fentanyl Inj) 25 mcg Q5M PRN IV 05/20/17 08:00 05/20/17 14:00 Hydromorphone HCl (Dilaudid Inj) 0.5 mg Q5M PRN IV 05/20/17 08:00 05/20/17 14:00 Ondansetron HCl (Zofran Inj) 4 mg ONE PRN IV 05/20/17 08:00 05/20/17 14:00 Ephedrine Sulfate (EpHEDrine SULFATE INJ) 5 mg Q5M PRN IV 05/20/17 08:00 05/20/17 14:00 Atropine Sulfate (Atropine Sulfate 0.1MG/Ml Inj) 0.5 mg Q1M PRN IV 05/20/17 08:00 05/20/17 14:00 Ropivacaine 150 mg/Bupivacaine HCl/Epinephrine Bitart 30 ml/ Dexamethasone Sodium Phosphate 4 mg/Ketamine HCl 10 mg/Clonidine 100 mcg/Sodium Chloride 30 ml/ Empty Bag 92.2 ml @ 0 mls/hr TODAY@0900 INFIL 05/20/17 09:00 05/20/17 18:00 05/20/17 09:00 92.2 MLS/HR Acetaminophen (Tylenol Tab) 1,000 mg Q8H PO 05/20/17 22:00 06/19/17 21:59 Pregabalin (Lyrica Cap) 75 mg BID PO 05/20/17 21:00 06/19/17 20:59 Magnesium Hydroxide (Milk Of Magnesia Susp) 30 ml Q6H PRN PO 05/20/17 09:45 06/19/17 09:44 Docusate Sodium (coLACE CAP) 100 mg BID PO 05/20/17 21:00 06/19/17 20:59 Diphenhydramine HCl (Benadryl Cap) 25 mg Q8H PRN PO 05/20/17 09:45 06/19/17 09:44 Al Hydrox/Mg Hydrox/Simethicone (Maalox Max Susp) 15 ml Q4H PRN PO 05/20/17 09:45 06/19/17 09:44 Zolpidem Tartrate (Ambien Tab) 5 mg HSZ PRN PO 05/20/17 09:45 06/19/17 09:44 Multivitamins (Multivitamin Tab) 1 tab QAM PO 05/21/17 09:00 06/20/17 08:59 Ondansetron HCl (Zofran Inj) 4 mg Q6H PRN IV 05/20/17 09:45 06/19/17 09:44 Metoclopramide HCl (Reglan Inj) 10 mg Q6H PRN IV 05/20/17 09:45 06/19/17 09:44 Ferrous Gluconate (Ferrous Gluconate Tab) 324 mg TIDM PO 05/20/17 17:45 06/19/17 17:44 Tramadol HCl (Ultram Tab) 1 TABLET FOR PAIN RATING... Q4H PRN PO 05/20/17 09:45 06/19/17 09:44 Cefazolin Sodium 1000 mg/Dextrose 55 ml @ 100 mls/hr Q8H IV 05/20/17 16:00 05/21/17 00:32 Aspirin (Ecotrin Tab) 81 mg DAILY PO 05/21/17 09:00 06/20/17 08:59 Atorvastatin Calcium (Lipitor Tab) 40 mg HS PO 05/20/17 21:00 06/19/17 20:59 Calcium/Vitamin D (Caltrate Plus Tab) 1 tab QAM PO 05/21/17 09:00 06/20/17 08:59 Clopidogrel Bisulfate (plAVix TAB) 75 mg QAM PO 05/21/17 09:00 06/20/17 08:59 Lamotrigine (Lamictal Tab) 100 mg BID PO 05/20/17 21:00 06/19/17 20:59 Levothyroxine Sodium (Synthroid Tab) 112 mcg QAM PO 05/21/17 09:00 06/20/17 08:59 Zonisamide (Zonegran) 200 mg BID PO 05/20/17 21:00 06/19/17 20:59 Hydromorphone HCl (Dilaudid Inj) 1 mg Q2HWA PRN IV 05/20/17 09:45 06/03/17 09:44 Hydromorphone HCl (Dilaudid Inj) 2 mg Q2HWA PRN IV 05/20/17 11:45 06/03/17 11:44 Dexamethasone Sodium Phosphate 10 mg/Syringe 2.5 ml @ 1 mls/min 0730 ONCE IV 05/21/17 07:30 05/21/17 07:32 Sodium Chloride 1,000 ml @ 100 mls/hr Q10H IV 05/20/17 12:30 05/21/17 11:29 05/20/17 12:50 100 MLS/HR Insulin Aspart (novoLOG ASPART) SLIDING SCALE If C... ACHS SC 05/20/17 17:15 06/19/17 17:14 Glucose (Glucose 40% Gel) 15-30 GRAMS 15 GRAMS... UD PRN PO 05/20/17 12:30 06/19/17 12:29 Glucose (Glucose Chew Tab) 4-8 Tablets 4 Tabl... UD PRN PO 05/20/17 12:30 06/19/17 12:29 Dextrose (Dextrose 50% 50ML Syringe) 25-50ML OF 50% DW IV FOR... UD PRN IV 05/20/17 12:30 06/19/17 12:29 Glucagon (Glucagon Inj) 1 mg UD PRN SQ 05/20/17 12:30 06/19/17 12:29 Review of Systems Ten systems reviewed and negative except as noted in HPI. Physical Exam Date Time Temp Pulse Resp B/P (MAP) Pulse Ox O2 Delivery O2 Flow Rate FiO2 05/20/17 13:09 36.2 62 16 119/55 (76) 98 Nasal Cannula 2.0 05/20/17 12:28 99 Nasal Cannula 2.0 05/20/17 12:00 62 18 101/ (33) 98 Nasal Cannula 2.0 82 05/20/17 11:30 36.4 69 16 116/70 (85) 99 Nasal Cannula 2.0 05/20/17 11:15 Nasal Cannula 2.0 05/20/17 11:00 Nasal Cannula 2.0 05/20/17 10:55 36.4 72 16 124/66 (85) 93 Nasal Cannula 2.0 05/20/17 10:40 55 12 126/50 92 Nasal Cannula 2 05/20/17 10:30 36.3 66 15 131/54 95 Nasal Cannula 2 05/20/17 10:20 52 11 124/52 92 Nasal Cannula 2 05/20/17 10:10 52 14 140/55 100 Mask 10 05/20/17 10:00 52 11 110/48 100 Mask 10 05/20/17 09:50 67 13 133/52 100 Mask 10 05/20/17 09:44 36.2 65 12 157/64 99 Mask 10 05/20/17 06:10 36.7 73 18 131/60 96 Room Air General Appearance: no apparent distress (resting comfortably and eating lunch. ) Head: normocephalic, atraumatic Eyes: normal inspection ENT: normal ENT inspection Neck: supple, no adenopathy Respiratory/Chest: chest non-tender, lungs clear, normal breath sounds, no respiratory distress, no accessory muscle use Cardiovascular: regular rate, rhythm, no edema, no murmur Abdomen/GI: normal bowel sounds, non tender, soft Back: normal inspection Extremities/Musculoskelatal: normal inspection, no calf tenderness, no pedal edema, + pertinent finding (R hip with dressing applied. Hemevac observed near R hip with sanguinous fluid. SCDs in place bilaterally.) Neurologic/Psych: no motor/sensory deficits, alert, oriented x 3 Skin: normal color, warm/dry, no rash Lymphatic: no adenopathy Laboratory Results Last 24 Hours Test 05/20/17 06:05 05/20/17 09:54 05/20/17 10:20 05/20/17 11:47 Bedside Glucose 126 mg/dl 285 mg/dl 253 mg/dl 275 mg/dl Test 05/20/17 12:55 Assessment & Plan Assessment: This is a 72yo F with DM II with CKD III, bilateral carotid stenosis (s/p L CEA), HTN, generalized seizure disorder, hypothyroidism, PAD and multi-joint OA who is POD#0 s/p total R hip replacement. Plan: S/p R hip replacement: -Doing well on POD #0. Surgery performed by Dr. Jose -Ortho to manage pain control, wound care, anticoagulation and activity level -Monitor H & H, continue incentive spirometry, order PT/OT when patient is appropriate for services DM II with CKD III: -ordered Lantus sliding scale while in-patient. Held home meds. -BSGs AC and qHS -hgb a1c of 8.5 -will continue monitoring Carotid stenosis s/p L CEA: -stable. Carotid duplex in 2012 showing <50% stenosis -continue home anticoagulation regimen (ASA and Plavix) per ortho HTN: stable -recent BP of 119/55 -holding HCTZ 25mg daily since pt is normotensive and is also receiving IVF -restart when clinically appropriate Generalized epilepsy: stable -no reported seizures since 2007 -continue home meds H/o CVA: -per chart review, stroke in 2004 was attributed to carotid stenosis. Underwent L CEA that same year and has been asymptomatic since Hypothyroidism: stable -continue home meds Multi-joint OA: -Sulindac held currently -continue out-patient follow-up DVT Ppx: per ortho Code status: Full PCP: Dr. Hood Agree with above consult note. Briefly 72F is s/p right total hip arthroplasty. Tolerated procedure fine.Denies any chest pain or sob. No nausea. No cough. Afebrile. resting comfortably. p/e Ge not in distress Cvs s1 and s2 heard, no murmurs Rs cta b/l no added sounds Abd benign Upper Leather Cutter non focal Ext s/p Rt hip arthroplasty. dressing and drain intact. a/p Rt hip arthroplasty management as per orthopedics DM iss will monitor
[2017-05-20] MEDS: CEFAZOLIN IV 1,000 MG in DEXTROSE 5% 50ML 50 ML IV SCH (15:38)
[2017-05-20] MEDS: FERROUS GLUCONATE 324 MG TAB PO SCH (18:32)
[2017-05-20] MEDS: PREGABALIN 75 MG CAP PO SCH (21:38)
[2017-05-20] MEDS: DOCUSATE SODIUM 100 MG CAP PO SCH (21:39)
[2017-05-20] MEDS: ZONISAMIDE 100 MG CAP PO SCH (21:39)
[2017-05-20] MEDS: ATORVASTATIN 40 MG TAB PO SCH (21:39)
[2017-05-20] MEDS: ACETAMINOPHEN 500 MG TAB PO SCH (21:40)
[2017-05-21] MEDS: CEFAZOLIN IV 1,000 MG in DEXTROSE 5% 50ML 50 ML IV SCH (00:02)
[2017-05-21] MEDS: TRAMADOL HCL 50 MG TAB PO PRN ×2 (00:19→22:19)
[2017-05-21 03:25] VITALS: BP 121/66; PULSE 75; TEMP 36.5; O2SAT 97
[2017-05-21] MEDS: ACETAMINOPHEN 500 MG TAB PO SCH ×3 (06:14→22:18)
[2017-05-21 06:48] LABS: BASO % 0.1 %; BASO ABS # 0.01 K/uL (0-0.2); COMPLETE YES; HEMATOCRIT 29.8 % (37-47); IG% 0.5 %; LYMPH % 5.5 %; LYMPH ABS # 0.78 K/uL (1.2-3.4); MEAN CELL VOLUME 93.7 fL (80-100); MEAN CORPUSCULAR HEMOGLOBIN 31.1 pg (25-34); MEAN CORPUSCULAR HGB CONC 33.2 g/dl (32-36); MEAN PLATELET VOLUME 8.7 fL (7.4-10.4); MONO % 7.4 %; NEUT % 86.5 %; PLATELET COUNT 198 K/uL (130-400); RED BLOOD COUNT 3.18 M/uL (4.2-5.4); WHITE BLOOD COUNT 14.22 K/uL (4.8-10.8)
[2017-05-21 07:21] LABS: BUN/CREATININE RATIO 17.4 (10-20); CALCIUM 7.7 mg/dl (8.5-10.1); CREATININE 1.2 mg/dl (0.60-1.20); POTASSIUM 3.8 mmol/L (3.5-5.1)
[2017-05-21] MEDS ORDERED: DEXAMETHASONE INJ 10 MG in SYRINGE 0 ML IV ONE (07:30)
--- NOTE | 2017-05-21 08:07 | Orthopedic Progress Note ---
Orthopedic Progress Note Date of Service May 21, 2017. Subjective Post OP Day: 1 Reports: feeling well Objective N/V intact, dressing C/D/I (Hemovac d/c'd), toes mobile Date Time Temp Pulse Resp B/P (MAP) Pulse Ox O2 Delivery O2 Flow Rate FiO2 05/21/17 03:25 36.5 75 20 121/66 (84) 97 Room Air 05/21/17 00:15 Room Air 05/20/17 23:25 36.7 72 18 106/59 (75) 98 Room Air 05/20/17 20:43 97 Room Air 05/20/17 15:54 36.4 58 18 114/63 (80) 100 Nasal Cannula 2.0 05/20/17 15:30 Nasal Cannula 2.0 05/20/17 13:53 36.3 61 18 129/66 (87) 90 Nasal Cannula 2.0 05/20/17 13:09 36.2 62 16 119/55 (76) 98 Nasal Cannula 2.0 05/20/17 12:28 99 Nasal Cannula 2.0 05/20/17 12:00 62 18 101/ (33) 98 Nasal Cannula 2.0 82 05/20/17 11:30 36.4 69 16 116/70 (85) 99 Nasal Cannula 2.0 05/20/17 11:15 Nasal Cannula 2.0 05/20/17 11:00 Nasal Cannula 2.0 05/20/17 10:55 36.4 72 16 124/66 (85) 93 Nasal Cannula 2.0 05/20/17 10:40 55 12 126/50 92 Nasal Cannula 2 05/20/17 10:30 36.3 66 15 131/54 95 Nasal Cannula 2 05/20/17 10:20 52 11 124/52 92 Nasal Cannula 2 05/20/17 10:10 52 14 140/55 100 Mask 10 05/20/17 10:00 52 11 110/48 100 Mask 10 05/20/17 09:50 67 13 133/52 100 Mask 10 05/20/17 09:44 36.2 65 12 157/64 99 Mask 10 Laboratory Results 24 Hours: Test 05/21/17 05:56 White Blood Count 14.22 K/uL Red Blood Count 3.18 M/uL Hemoglobin 9.9 g/dL Hematocrit 29.8 % Mean Corpuscular Volume 93.7 fL Mean Corpuscular Hemoglobin 31.1 pg Mean Corpuscular Hemoglobin Concent 33.2 g/dl Platelet Count 198 K/uL Mean Platelet Volume 8.7 fL Neutrophils (%) (Auto) 86.5 % Lymphocytes (%) (Auto) 5.5 % Monocytes (%) (Auto) 7.4 % Eosinophils (%) (Auto) 0.0 % Basophils (%) (Auto) 0.1 % Neutrophils # (Auto) 12.31 K/uL Lymphocytes # (Auto) 0.78 K/uL Monocytes # (Auto) 1.05 K/uL Eosinophils # (Auto) 0.00 K/uL Basophils # (Auto) 0.01 K/uL Assessment & Plan Assessment: 72 yo female stable POD #1 s/p right hip removal retained hardware, conversion to RILEY Plan: 1. Med management 2. DVT prophylaxis- ASA, SCDs 3. PT/OT- TTWB 4. D/C planning- pt interested in [facility], [facility]
--- NOTE | 2017-05-21 08:10 | Discharge Instructions ---
Discharge Instructions Date of Service May 21, 2017. Admission Reason for Admission: Right Hip Painful Hardware Discharge Discharge Diagnosis / Problem: Painful retained hardware right hip Discharge Goals Goal(s): Decrease discomfort, Improve function Activity Recommendations Activity Limitations: as noted below Weightbearing Status: Right toe touch . Instructions / Follow-Up Instructions / Follow-Up ACTIVITY RECOMMENDATIONS: SELF CARE INSTRUCTIONS AFTER TOTAL HIP REPLACEMENT Until the incision and soft tissues around your hip have healed, there is a possibility that the hip prosthesis could dislocate. A. Observe the following precautions to prevent dislocation: 1. Don't bend your hip greater than 90 degrees. 2. Avoid crossing your legs or ankles while standing or lying. 3. Sit with your feet placed 6 inches apart. 4. When sitting, keep your knees below your hips. Sit on a firm surface, avoid deep, soft chairs and couches. Use an elevated toilet seat in the bathroom. 5. Don't bend over at the waist. Use a long handled shoehorn and a sock aid to help you put on your shoes and socks. A field technician can help you pickle pumper objects that are too high or too low to reach. 6. Keep car riding to a minimum for at least one month after surgery. B. Your balance may be shaky for a while. Use crutches or a walker until directed by your doctor. C. Use hand rails when walking on stairs. D. Wear low heeled shoes with non-slip soles. E. Be sure that your floors are free of things that could trip you - throw rugs , electrical cords, small objects. Avoid wet and waxed floors, especially with crutches and canes. F. Try to walk several times a day with rest periods between. G. Continue with all the exercises taught to you in the hospital. Again, make walking a part of your daily routine. SPECIAL CARE INSTRUCTIONS: VERY IMPORTANT TO READ AND REVIEW A. You may still be at risk for phlebitis and blood clots. 1. Wear surgical stockings (AARON hose) for 2 weeks after surgery to improve circulation and reduce swelling. 2. Take Aspirin 81mg twice daily for 4 weeks or as directed by your doctor. This is your blood thinner. 3. High risk patients may be prescribed a stronger blood thinner if necessary. 4. If you are on Coumadin normally, your family doctor/arc welder apprentice should monitor your blood work. Expect a phone call the day of or the day after bloodwork is drawn to adjust your dosage. B. You must take antibiotics before having dental work, bladder, bowel and other surgery. Your doctor will provide you with a permanent card to carry describing precautions. C. Call [facility] if you have a fever, redness or swelling around the incision, cloudy drainage from incision, or sudden increase in pain in your hip, not relieved by your regular pain medication. D. Please call the office at if you have any concerns or questions about your operation or recovery. * YOU MAY SHOWER, NO TUB BATHS UNTIL CLEARED BY YOUR DOCTOR. * WEAR AARON HOSE 20 HOURS PER DAY FOR 2 WEEKS. * YOU SHOULD USE A WALKER OR CRUTCHES FOR 6 WEEKS. THIS WILL HELP PREVENT STRAIN ON YOUR HIP MUSCLE AND ALLOW IT TO HEAL PROPERLY. * MOST PATIENTS WILL HAVE HOME NURSING FOR THERAPY. IF YOU DECIDE TO DO OUTPATIENT PHYSICAL THERAPY, PLEASE SCHEDULE THIS 3 TIMES PER WEEK. Silverlon- This is a large adhesive bandage that contains silver ions. This helps your incision heal by fighting off bacteria and protecting it from the outside environment. You are permitted to shower with this dressing. This will remain on your incision for 7 days and then should be removed. Some visible blood or drainage through the dressing window is normal. If there is significant drainage or leaking noted before the 7 days notify your doctor's office immediately. Once removed, keep incision clean and dry. If there is any drainage or redness noted, please call your surgeon. FOLLOW UP VISIT: If appointment is not already scheduled: Please call [facility] to make a follow-up appointment for 2 weeks after your surgery at . Current Hospital Diet Patient's current hospital diet: Diabetes Type 2 Diet Discharge Diet Recommended Diet: Diabetes Type 2 Diet Procedures Procedures Performed: Removal right trochanteric nail, conversion to right total hip arthroplasty patient was placed left lateral decubitus position and the right hip was prepped and draped in usual sterile manner." Lung but incision was made some changes Stacy retroseptal with cartilage hemostasis the fascia was incised throughout the length and wound and attention was first turned to the greater trochanter where abductors were split and taken down to bone and the proximal end of the femoral nail was identified. Flexible screwdriver was placed unlock the trochanteric nail. Once this was accomplished turned to the helical blade this was removed using the slap hammer. Following this the intramedullary alejandro was removed. Next the foot up for rotators were divided from the posterior aspect of the femur using electrocautery extremely shortened scarred was noted. Femoral head was completely destroyed to the point of being nearly absent. The femoral neck was osteotomized at the level of the lesser trochanter and this bone was removed. Attention was turned to the acetabulum where a long knife were used to remove fibrous labrum. Large defect in the acetabulum was noted. Acetabulum was reamed up to size 50 this gave good subchondral bone exposure. A femoral head allograft is thawed and reamed creating cancellus allograft reamings and these were packed into the bony defect in the acetabulum. The 50 reamer was then again placed and reamed on reverse and the 50 cup was impacted into position cup was stable. This was fixed using a single 30 mm cancellous bone screw. A elevated posterior wall liner was placed and checked with a Ferguson elevator and stable. Next attention was turned to the proximal femur where a box osteotome was used to open the canal and the canal finder inserted. Once a raspings were taken up to size 4 this was reduced with a -5 neck was found only come to 45 of extension. Rasp was removed approximately proximal osteotomy was revised to the mid level of the lesser trochanter. The iliopsoas tendon was transected. Raspings were then taken up again to size 2 and a -5 neck was inserted reduction was easy this time still the patient had a 15 flexion contracture of note was that the patient's knee would only flex to 80 as well. The trial was removed and the final 2 was -5 x 36 mm head was impacted in position. Hip was reduced was taken through full range of motion and motion is stable to 90 of flexion and 45 of internal rotation. The wound was irrigated with pulsatile irrigation Hemovac drain was placed fascia was closed using #1 Vicryl subcutaneous tissue was closed reduction and the skin was closed sip strip. Sterile dressing of [place] was applied patient tolerated the procedure well promotions assistant sales marketing was Ricky Recinos Chi was essential throughout portions the case including positioning prepping draping surgical-assist wound closure and dressing application. Pending Studies Studies pending at discharge: no Laboratory Results Hemoglobin A1c Test 05/05/17 12:23 Range/Units Estimated Average Glucose 197 mg/dl Hemoglobin A1c 8.5 H 4.5-5.6 % Medical Emergencies . Who to Call and When: Medical Emergencies: If at any time you feel your situation is an emergency, please call 911 immediately. . Non-Emergent Contact Non-Emergency issues call your: Surgeon Call Non-Emergent contact if: temperature is above 101.5, your pain is not controlled, wound has increased drainage, wound has increased redness . "Provider Documentation" section prepared by Ricky Clark PA-C. . VTE Core Measure Inpt VTE Proph given/why not?: Other Anticoagulation (ASA 81mg bid), T.E.DYeyo Stockings, SCD's [place] Drug Monitoring Program Search Results: patient reviewed within database, no issues identified
--- NOTE | 2017-05-21 08:15 | Anesthesiology Progress Note ---
Anesthesia Post Op Note Date & Time May 21, 2017 at 08:15 Vital Signs Pain Intensity: 10.0 Vital Signs Past 12 Hours Date Time Temp Pulse Resp B/P (MAP) Pulse Ox O2 Delivery O2 Flow Rate FiO2 05/21/17 03:25 36.5 75 20 121/66 (84) 97 Room Air 05/21/17 00:15 Room Air 05/20/17 23:25 36.7 72 18 106/59 (75) 98 Room Air 05/20/17 20:43 97 Room Air Notes Mental Status: alert / awake / arousable, participated in evaluation Pt Amnestic to Procedure: Yes Nausea / Vomiting: adequately controlled Pain: adequately controlled Airway Patency, RR, SpO2: stable & adequate BP & HR: stable & adequate Hydration State: stable & adequate Anesthetic Complications: no major complications apparent
[2017-05-21] MEDS: FERROUS GLUCONATE 324 MG TAB PO SCH ×3 (08:37→17:32)
[2017-05-21] MEDS: CALCIUM 600MG + VIT D 400 IU TAB PO SCH (08:37)
[2017-05-21] MEDS: DOCUSATE SODIUM 100 MG CAP PO SCH ×2 (08:38→20:24)
[2017-05-21] MEDS: ASPIRIN 81 MG ECTAB PO SCH (08:38)
[2017-05-21] MEDS: ZONISAMIDE 100 MG CAP PO SCH ×2 (08:39→20:25)
[2017-05-21] MEDS: CLOPIDOGREL BISULFATE 75 MG TAB PO SCH (08:40)
[2017-05-21] MEDS: MULTIVITAMIN TAB PO SCH (08:40)
[2017-05-21] MEDS: INSULIN ASPART 100 UNITS/ML 3 ML PEN SC SCH ×4 (08:53→22:20)
[2017-05-21] MEDS: PREGABALIN 75 MG CAP PO SCH ×2 (08:59→20:25)
[2017-05-21] MEDS: SODIUM CHLORIDE 0.9% 1000ML 1,000 ML IV SCH (08:59)
[2017-05-21] MEDS: LEVOTHYROXINE 112 MCG TAB PO SCH (09:00)
[2017-05-21] MEDS ORDERED: HYDROCHLOROTHIAZIDE 25 MG TAB PO SCH (09:00)
[2017-05-21] MEDS ORDERED: PANTOprazole SOD 40 MG TAB PO SCH (09:00)
[2017-05-21 11:59] VITALS: BP 94/57; PULSE 68; TEMP 36.7; O2SAT 95
--- NOTE | 2017-05-21 14:50 | Progress Note ---
Internal Med Progress Note Date of Service: May 21, 2017. Provider Documentation: SUBJECTIVE: Patient is c/o reflux symptoms. Was on nexium before but recently taken off. Pain is controlled. No SOB, cough, fever, chills, nausea, vomiting. OBJECTIVE: Vital Signs-as noted below Exam: General-AAOX3, no distress Neck-Supple, No JVD Lungs-AEBE, no wheezing, rhonchi, rales Heart-S1, S2 normal, no murmurs Extremities-S/P right total knee replacement Lab data as noted below. ASSESSMENT & PLAN: This is a 72yo F with DM II with CKD III, bilateral carotid stenosis (s/p L CEA) , HTN, generalized seizure disorder, hypothyroidism, PAD and multi-joint OA who is s/p total hip replacement ASSESSMENT AND PLAN: S/p R hip replacement: -Doing well on POD #1. Surgery performed by Dr. Jose -Ortho to manage pain control, wound care, anticoagulation, PT/OT -Incentive spirometry -Monitor H & H DM II with nephropathy -ISS, Accuchecks -hgb a1c of 8.5 Carotid stenosis s/p L CEA: -stable. Carotid duplex in 2012 showing <50% stenosis -continue home anticoagulation regimen (ASA and Plavix) per ortho HTN: stable -holding HCTZ 25mg daily as BP borderline low Generalized epilepsy: stable -no reported seizures since 2007 -continue home meds H/o CVA: -per chart review, stroke in 2004 was attributed to carotid stenosis. Underwent L CEA that same year and has been asymptomatic since Hypothyroidism: stable -continue home meds Multi-joint OA: -Sulindac held currently -continue out-patient follow-up DVT Ppx: per ortho Code status: Full PCP: Dr. Hood Vital Signs: Date Time Temp Pulse Resp B/P (MAP) Pulse Ox O2 Delivery O2 Flow Rate FiO2 05/21/17 11:59 36.7 68 18 94/57 (69) 95 Room Air 05/21/17 09:12 Room Air 05/21/17 03:25 36.5 75 20 121/66 (84) 97 Room Air 05/21/17 00:15 Room Air 05/20/17 23:25 36.7 72 18 106/59 (75) 98 Room Air 05/20/17 20:43 97 Room Air 7/20/17 15:54 36.4 58 18 114/63 (80) 100 Nasal Cannula 2.0 05/20/17 15:30 Nasal Cannula 2.0 Lab Results: Results Past 24 Hours Test 05/20/17 17:09 05/20/17 20:42 05/21/17 05:56 05/21/17 08:11 Range/Units Bedside Glucose 278 250 168 70-90 mg/dl White Blood Count 14.22 4.8-10.8 K/uL Red Blood Count 3.18 4.2-5.4 M/uL Hemoglobin 9.9 12.0-16.0 g/dL Hematocrit 29.8 37-47 % Mean Corpuscular Volume 93.7 80-100 fL Mean Corpuscular Hemoglobin 31.1 25-34 pg Mean Corpuscular Hemoglobin Concent 33.2 32-36 g/dl Platelet Count 198 130-400 K/uL Mean Platelet Volume 8.7 7.4-10.4 fL Neutrophils (%) (Auto) 86.5 % Lymphocytes (%) (Auto) 5.5 % Monocytes (%) (Auto) 7.4 % Eosinophils (%) (Auto) 0.0 % Basophils (%) (Auto) 0.1 % Neutrophils # (Auto) 12.31 1.4-6.5 K/uL Lymphocytes # (Auto) 0.78 1.2-3.4 K/uL Monocytes # (Auto) 1.05 0.11-0.59 K/uL Eosinophils # (Auto) 0.00 0-0.5 K/uL Basophils # (Auto) 0.01 0-0.2 K/uL RDW Standard Deviation 46.2 36.4-46.3 fL RDW Coefficient of Variation 13.5 11.5-14.5 % Immature Granulocyte % (Auto) 0.5 % Immature Granulocyte # (Auto) 0.07 0.00-0.02 K/uL Sodium Level 140 136-145 mmol/L Potassium Level 3.8 3.5-5.1 mmol/L Chloride Level 108 98-107 mmol/L Carbon Dioxide Level 25 21-32 mmol/L Anion Gap 7.0 3-11 mmol/L Blood Urea Nitrogen 21 7-18 mg/dl Creatinine 1.20 0.60-1.20 mg/dl Est Creatinine Clear Calc Drug Dose 40.0 ml/min Estimated GFR () 52.7 Estimated GFR (Non- 45.4 BUN/Creatinine Ratio 17.4 10-20 Random Glucose 155 70-99 mg/dl Calcium Level 7.7 8.5-10.1 mg/dl Test 05/21/17 11:53 Range/Units Bedside Glucose 148 70-90 mg/dl
[2017-05-21 15:34] VITALS: BP 116/66; PULSE 71; TEMP 36.7; O2SAT 93
[2017-05-21] MEDS: PANTOprazole SOD 40 MG TAB PO SCH (18:12)
[2017-05-21] MEDS: ATORVASTATIN 40 MG TAB PO SCH (20:24)
[2017-05-22 00:20] VITALS: BP 111/62; PULSE 80; TEMP 36.9; O2SAT 98
[2017-05-22] MEDS: ACETAMINOPHEN 500 MG TAB PO SCH ×3 (05:43→21:31)
[2017-05-22 06:25] LABS: BASO % 0.1 %; BASO ABS # 0.01 K/uL (0-0.2); COMPLETE YES; EOS % 0.1 %; HEMATOCRIT 31.3 % (37-47); IG% 0.2 %; LYMPH % 13.9 %; LYMPH ABS # 1.74 K/uL (1.2-3.4); MEAN CELL VOLUME 95.7 fL (80-100); MEAN CORPUSCULAR HEMOGLOBIN 30.6 pg (25-34); MEAN CORPUSCULAR HGB CONC 31.9 g/dl (32-36); MEAN PLATELET VOLUME 8.9 fL (7.4-10.4); NEUT % 76.7 %; PLATELET COUNT 196 K/uL (130-400); RED BLOOD COUNT 3.27 M/uL (4.2-5.4); WHITE BLOOD COUNT 12.53 K/uL (4.8-10.8)
[2017-05-22 06:57] LABS: BUN/CREATININE RATIO 17.8 (10-20); CALCIUM 8.4 mg/dl (8.5-10.1); CREATININE 1.2 mg/dl (0.60-1.20); POTASSIUM 3.5 mmol/L (3.5-5.1)
[2017-05-22 08:14] VITALS: BP 126/69; PULSE 62; TEMP 36.5; O2SAT 96
[2017-05-22] MEDS: PANTOprazole SOD 40 MG TAB PO SCH (09:12)
[2017-05-22] MEDS: CALCIUM 600MG + VIT D 400 IU TAB PO SCH (09:12)
[2017-05-22] MEDS: CLOPIDOGREL BISULFATE 75 MG TAB PO SCH (09:12)
[2017-05-22] MEDS: PREGABALIN 75 MG CAP PO SCH ×3 (09:12→21:29)
[2017-05-22] MEDS: ZONISAMIDE 100 MG CAP PO SCH ×2 (09:12→21:28)
[2017-05-22] MEDS: DOCUSATE SODIUM 100 MG CAP PO SCH ×2 (09:12→21:28)
[2017-05-22] MEDS: ASPIRIN 81 MG ECTAB PO SCH (09:12)
[2017-05-22] MEDS: LEVOTHYROXINE 112 MCG TAB PO SCH (09:12)
[2017-05-22] MEDS: MULTIVITAMIN TAB PO SCH (09:12)
[2017-05-22] MEDS: FERROUS GLUCONATE 324 MG TAB PO SCH ×3 (09:12→17:59)
[2017-05-22] MEDS: INSULIN ASPART 100 UNITS/ML 3 ML PEN SC SCH ×4 (09:15→20:41)
[2017-05-22] MEDS: TRAMADOL HCL 50 MG TAB PO PRN (09:58)
[2017-05-22] MEDS ORDERED: ULT50X PO (10:34)
[2017-05-22] MEDS ORDERED: ASPEC81 PO (10:34)
[2017-05-22] MEDS ORDERED: MULT-890 PO (10:34)
[2017-05-22] MEDS ORDERED: ACET-24 PO (10:34)
[2017-05-22] MEDS ORDERED: FRRG PO (10:34)
--- NOTE | 2017-05-22 10:36 | Orthopedic Progress Note ---
Orthopedic Progress Note Date of Service May 22, 2017. Subjective Post OP Day: 2 Reports: feeling well, Denies: complaints, chest pain, SOB, nausea / vomiting, light headedness, calf pain Additional Notes: Doing well with PT. Objective calves soft nontender, N/V intact, hip located, capillary refill less than 2 sec., incision C/D/I, A&O x3, toes mobile Hip incision benign. TEDs and SCDs in place. DNVSI. Calves soft and nontender. Date Time Temp Pulse Resp B/P (MAP) Pulse Ox O2 Delivery O2 Flow Rate FiO2 05/22/17 08:14 36.5 62 18 126/69 (88) 96 Room Air 05/22/17 00:20 36.9 80 16 111/62 (78) 98 Room Air 05/21/17 19:45 Room Air 05/21/17 15:34 36.7 71 16 116/66 (83) 93 Room Air 05/21/17 11:59 36.7 68 18 94/57 (69) 95 Room Air Laboratory Results 24 Hours: Test 05/22/17 05:55 White Blood Count 12.53 K/uL Red Blood Count 3.27 M/uL Hemoglobin 10.0 g/dL Hematocrit 31.3 % Mean Corpuscular Volume 95.7 fL Mean Corpuscular Hemoglobin 30.6 pg Mean Corpuscular Hemoglobin Concent 31.9 g/dl Platelet Count 196 K/uL Mean Platelet Volume 8.9 fL Neutrophils (%) (Auto) 76.7 % Lymphocytes (%) (Auto) 13.9 % Monocytes (%) (Auto) 9.0 % Eosinophils (%) (Auto) 0.1 % Basophils (%) (Auto) 0.1 % Neutrophils # (Auto) 9.62 K/uL Lymphocytes # (Auto) 1.74 K/uL Monocytes # (Auto) 1.13 K/uL Eosinophils # (Auto) 0.01 K/uL Basophils # (Auto) 0.01 K/uL Assessment & Plan Assessment: 72 yo female stable POD #2 s/p right hip removal retained hardware, conversion to RILEY Plan: 1. Med management 2. DVT prophylaxis- ASA, SCDs 3. PT/OT- TTWB 4. D/C planning- pt interested in [facility] currently full, awaiting a bed
--- NOTE | 2017-05-22 14:46 | Progress Note ---
Internal Med Progress Note Date of Service: May 22, 2017. Provider Documentation: SUBJECTIVE: Patient feeling a bit dizzy after taking 2 pain medications Pain is controlled. No SOB, cough, fever, chills, nausea, vomiting. OBJECTIVE: Vital Signs-as noted below Exam: General-AAOX3, no distress Neck-Supple, No JVD Lungs-AEBE, no wheezing, rhonchi, rales Heart-S1, S2 normal, no murmurs Extremities-S/P right total knee replacement Lab data as noted below. ASSESSMENT & PLAN: This is a 72yo F with DM II with CKD III, bilateral carotid stenosis (s/p L CEA) , HTN, generalized seizure disorder, hypothyroidism, PAD and multi-joint OA who is s/p total hip replacement ASSESSMENT AND PLAN: S/p R hip replacement: -Doing well on POD #2. Surgery performed by Dr. Jose -Ortho to manage pain control, wound care, anticoagulation, PT/OT -Incentive spirometry -Monitor H & H-stable DM II with nephropathy -ISS, Accuchecks -Blood sugar under control -hgb a1c of 8.5 Carotid stenosis s/p L CEA: -stable. Carotid duplex in 2012 showing <50% stenosis -continue home anticoagulation regimen (ASA and Plavix) per ortho HTN: stable -Holding HCTZ 25mg daily as BP borderline low Generalized epilepsy: stable -no reported seizures since 2007 -continue home meds H/o CVA: -per chart review, stroke in 2004 was attributed to carotid stenosis. Underwent L CEA that same year and has been asymptomatic since Hypothyroidism: stable -continue home meds Multi-joint OA: -Sulindac held currently -continue out-patient follow-up Disposition Per primary team DVT Ppx: per ortho Code status: Full PCP: Dr. Hood Vital Signs: Date Time Temp Pulse Resp B/P (MAP) Pulse Ox O2 Delivery O2 Flow Rate FiO2 05/22/17 08:14 36.5 62 18 126/69 (88) 96 Room Air 05/22/17 08:00 Room Air 05/22/17 00:20 36.9 80 16 111/62 (78) 98 Room Air 05/21/17 19:45 Room Air 05/21/17 15:34 36.7 71 16 116/66 (83) 93 Room Air Lab Results: Results Past 24 Hours Test 05/21/17 17:05 05/21/17 21:18 05/22/17 05:55 05/22/17 08:17 Range/Units Bedside Glucose 246 155 97 70-90 mg/dl White Blood Count 12.53 4.8-10.8 K/uL Red Blood Count 3.27 4.2-5.4 M/uL Hemoglobin 10.0 12.0-16.0 g/dL Hematocrit 31.3 37-47 % Mean Corpuscular Volume 95.7 80-100 fL Mean Corpuscular Hemoglobin 30.6 25-34 pg Mean Corpuscular Hemoglobin Concent 31.9 32-36 g/dl Platelet Count 196 130-400 K/uL Mean Platelet Volume 8.9 7.4-10.4 fL Neutrophils (%) (Auto) 76.7 % Lymphocytes (%) (Auto) 13.9 % Monocytes (%) (Auto) 9.0 % Eosinophils (%) (Auto) 0.1 % Basophils (%) (Auto) 0.1 % Neutrophils # (Auto) 9.62 1.4-6.5 K/uL Lymphocytes # (Auto) 1.74 1.2-3.4 K/uL Monocytes # (Auto) 1.13 0.11-0.59 K/uL Eosinophils # (Auto) 0.01 0-0.5 K/uL Basophils # (Auto) 0.01 0-0.2 K/uL RDW Standard Deviation 48.5 36.4-46.3 fL RDW Coefficient of Variation 14.0 11.5-14.5 % Immature Granulocyte % (Auto) 0.2 % Immature Granulocyte # (Auto) 0.02 0.00-0.02 K/uL Sodium Level 139 136-145 mmol/L Potassium Level 3.5 3.5-5.1 mmol/L Chloride Level 106 98-107 mmol/L Carbon Dioxide Level 25 21-32 mmol/L Anion Gap 8.0 3-11 mmol/L Blood Urea Nitrogen 21 7-18 mg/dl Creatinine 1.20 0.60-1.20 mg/dl Est Creatinine Clear Calc Drug Dose 40.0 ml/min Estimated GFR () 52.7 Estimated GFR (Non- 45.4 BUN/Creatinine Ratio 17.8 10-20 Random Glucose 94 70-99 mg/dl Calcium Level 8.4 8.5-10.1 mg/dl Test 05/22/17 12:13 Range/Units Bedside Glucose 122 70-90 mg/dl
[2017-05-22 15:09] VITALS: BP 107/62; PULSE 74; TEMP 36.5; O2SAT 99
[2017-05-22 18:30] VITALS: BP 94/53; PULSE 81; O2SAT 94
[2017-05-22] MEDS: ATORVASTATIN 40 MG TAB PO SCH (21:28)
[2017-05-22 23:54] VITALS: BP 105/58; PULSE 69; TEMP 36.8; O2SAT 99
[2017-05-23] MEDS: ACETAMINOPHEN 500 MG TAB PO SCH ×2 (06:07→14:04)
[2017-05-23 08:01] VITALS: BP 119/68; PULSE 81; TEMP 36.9; O2SAT 96
--- NOTE | 2017-05-23 08:37 | Orthopedic Progress Note ---
Orthopedic Progress Note Date of Service May 23, 2017. Subjective Post OP Day: 3 Reports: feeling well, pain controlled w PO medications, Denies: chest pain, SOB , nausea / vomiting, light headedness, calf pain Objective calves soft nontender, N/V intact, hip located, capillary refill less than 2 sec., dressing C/D/I, A&O x3, toes mobile Date Time Temp Pulse Resp B/P (MAP) Pulse Ox O2 Delivery O2 Flow Rate FiO2 05/23/17 08:01 36.9 81 18 119/68 (85) 96 Room Air 05/22/17 23:54 36.8 69 14 105/58 (74) 99 Room Air 05/22/17 19:50 Room Air 05/22/17 18:30 81 16 94/53 (67) 94 05/22/17 15:09 36.5 74 18 107/62 (77) 99 Room Air Assessment & Plan Assessment: 72 yo female stable POD #3 s/p right hip removal retained hardware, conversion to RILEY Plan: 1. Med management 2. DVT prophylaxis- ASA, SCDs 3. PT/OT- TTWB 4. D/C planning- pt interested in [facility] currently full, awaiting a bed hopefully today for [facility] Inhouse Planning Pain Management: Ultram DVT Prophylaxis: TEDs, SCDs, ASA Discharge Planning Discharge Planning: rehab hospital Pain Management: Ultram DVT Prophylaxis: TEDs, SCDs, ASA Therapy: Physical Therapy
[2017-05-23] MEDS: PREGABALIN 75 MG CAP PO SCH (08:47)
[2017-05-23] MEDS: INSULIN ASPART 100 UNITS/ML 3 ML PEN SC SCH ×2 (08:57→13:00)
[2017-05-23] MEDS: CLOPIDOGREL BISULFATE 75 MG TAB PO SCH (08:58)
[2017-05-23] MEDS: DOCUSATE SODIUM 100 MG CAP PO SCH (08:58)
[2017-05-23] MEDS: CALCIUM 600MG + VIT D 400 IU TAB PO SCH (08:58)
[2017-05-23] MEDS: FERROUS GLUCONATE 324 MG TAB PO SCH ×2 (08:58→12:55)
[2017-05-23] MEDS: ZONISAMIDE 100 MG CAP PO SCH (08:59)
[2017-05-23] MEDS: LEVOTHYROXINE 112 MCG TAB PO SCH (08:59)
[2017-05-23] MEDS: PANTOprazole SOD 40 MG TAB PO SCH (08:59)
[2017-05-23] MEDS: ASPIRIN 81 MG ECTAB PO SCH (08:59)
[2017-05-23] MEDS: MULTIVITAMIN TAB PO SCH (08:59)
--- NOTE | 2017-05-23 11:17 | Progress Note ---
Internal Med Progress Note Date of Service: May 23, 2017. Provider Documentation: SUBJECTIVE: Patient is doing better. Pain is controlled. No SOB, cough, fever, chills, nausea, vomiting. OBJECTIVE: Vital Signs-as noted below Exam: General-AAOX3, no distress Neck-Supple, No JVD Lungs-AEBE, no wheezing, rhonchi, rales Heart-S1, S2 normal, no murmurs Extremities-S/P right total knee replacement Lab data as noted below. ASSESSMENT & PLAN: This is a 72yo F with DM II with CKD III, bilateral carotid stenosis (s/p L CEA) , HTN, generalized seizure disorder, hypothyroidism, PAD and multi-joint OA who is s/p total hip replacement ASSESSMENT AND PLAN: S/p R hip replacement: -Doing well on POD #3. Surgery performed by Dr. Jose -Ortho to manage pain control, wound care, anticoagulation, PT/OT -Incentive spirometry -Monitor H & H-stable DM II with nephropathy -ISS, Accuchecks -Blood sugar under control while in hospital -hgb a1c of 8.5 Carotid stenosis s/p L CEA: -stable. Carotid duplex in 2012 showing <50% stenosis -continue home anticoagulation regimen (ASA and Plavix) per ortho HTN: stable -Holding HCTZ 25mg daily as BP borderline low and patient did have symptoms of dizziness -Would hold off on discharge as well. -Monitor BP outpatient and consider re starting if BP going up Generalized epilepsy: stable -no reported seizures since 2007 -continue home meds H/o CVA: -per chart review, stroke in 2004 was attributed to carotid stenosis. Underwent L CEA that same year and has been asymptomatic since Hypothyroidism: stable -continue home meds Multi-joint OA: -Sulindac held currently -continue out-patient follow-up Disposition Per primary team- likely to HS today DVT Ppx: per ortho Code status: Full PCP: Dr. Hood Vital Signs: Date Time Temp Pulse Resp B/P (MAP) Pulse Ox O2 Delivery O2 Flow Rate FiO2 05/23/17 08:30 Room Air 05/23/17 08:01 36.9 81 18 119/68 (85) 96 Room Air 05/22/17 23:54 36.8 69 14 105/58 (74) 99 Room Air 05/22/17 19:50 Room Air 05/22/17 18:30 81 16 94/53 (67) 94 05/22/17 15:09 36.5 74 18 107/62 (77) 99 Room Air Lab Results: Results Past 24 Hours Test 05/22/17 12:13 05/22/17 17:00 05/22/17 18:27 05/22/17 20:35 Range/Units Bedside Glucose 122 119 137 104 70-90 mg/dl Test 05/23/17 08:05 Range/Units Bedside Glucose 116 70-90 mg/dl
[2017-05-23 15:05] VITALS: BP 119/68; PULSE 81; TEMP 36.9; O2SAT 96
--- NOTE | 2017-05-28 08:40 | DISCHARGE SUMMARY ---
CHIEF COMPLAINT: Painful retained hardware, right hip. Please see complete history and physical examination. HOSPITAL COURSE: The patient underwent hardware removal and conversion to right total hip arthroplasty without complication. She tolerated the procedure well and was discharged to recovery room in stable condition. Her postoperative pain was reasonably well controlled with a combination of spinal anesthesia, intraoperative joint injection, IV, and oral pain medications. She was started back on her normal aspirin and Plavix postoperatively for DVT prevention. She also utilized AARON stockings and SCDs for additional prophylaxis. Her H&H was stable and did not require transfusion. Her surgical drain was discontinued by postoperative day 1. Her surgical dressing will remain in place for approximately 7 days postoperative. She tolerated postoperative physical therapy reasonably well. She was ambulating toe touch weightbearing and transferring appropriately. She was observing all total hip precautions. She was discharged to [facility] on postoperative day 3. She will continue her physical therapy there prior to discharge home. She will continue her aspirin and Plavix for DVT prophylaxis and follow up in our office in approximately 10-14 days for initial postop evaluation.
== END 2017-05-23 16:05 | DRG 470 ==
LOC: C.ACU 05:41 → C.3E 07:00 → ENRESERV 10:25
PROC: 0SR90JZ Replacement of Right Hip Joint with Synthetic Substitute, Open Approach (ICD-10-PCS; principal; 2017-05-20 07:30)
PROC: 0QP604Z Removal of Internal Fixation Device from Right Upper Femur, Open Approach (ICD-10-PCS; principal; 2017-05-20 07:30)
DX: T84.194A Other mechanical complication of internal fixation device of right femur, initial encounter (principal); M87.351 Other secondary osteonecrosis, right femur; Y83.4 Other reconstructive surgery as the cause of abnormal reaction of the patient, or of later complication, without mention of misadventure at the time of the procedure; Y79.2 Prosthetic and other implants, materials and accessory orthopedic devices associated with adverse incidents; R42 Dizziness and giddiness; I12.9 Hypertensive chronic kidney disease with stage 1 through stage 4 chronic kidney disease, or unspecified chronic kidney disease; E11.22 Type 2 diabetes mellitus with diabetic chronic kidney disease; N18.3 Chronic kidney disease, stage 3 (moderate); G40.409 Other generalized epilepsy and epileptic syndromes, not intractable, without status epilepticus; E03.9 Hypothyroidism, unspecified; K21.9 Gastro-esophageal reflux disease without esophagitis; I65.29 Occlusion and stenosis of unspecified carotid artery; I73.9 Peripheral vascular disease, unspecified; M19.90 Unspecified osteoarthritis, unspecified site; Z86.73 Personal history of transient ischemic attack (TIA), and cerebral infarction without residual deficits; Z96.653 Presence of artificial knee joint, bilateral; Z79.02 Long term (current) use of antithrombotics/antiplatelets; Z79.84 Long term (current) use of oral hypoglycemic drugs; Z79.899 Other long term (current) drug therapy

== ENCOUNTER 2017-10-19 19:29 | Emergency (ER) | payer OTHER ==
[~2017-10-19] VITALS: Ht 154.9 cm; Wt 80.0 kg
[~2017-10-19 19:29] MED LIST changes: -ACET-1256 PO; +ACET-24 PO; +ASPEC81 PO; -CLN150 PO; +FRRG PO; -HYDR25TA5 PO; +MULT-890 PO; +ULT50X PO
[2017-10-19 19:35] VITALS: TEMP 36.7; Ht 154.9 cm; Wt 80.0 kg
[2017-10-19] MEDS ORDERED: LIDOCAINE/EPINEPHRINE 1% 20 ML VIAL INFIL ONE (19:45)
--- NOTE | 2017-10-19 20:41 | EMERGENCY ROOM VISIT NOTE ---
History First contact with patient: 19:33 Chief Complaint: LACERATION/CUT (SUT/DERMABOND) Stated Complaint: LACERATION TO LEG Nursing Triage Summary: patient to ed via EMS for laceration to lower right leg, states "I banged it against a shelf at the store, I take plavix and its still bleeding." History of Present Illness The patient is a 72 year old female who presents to the Emergency Room via EMS complaining of a laceration to the lower right leg. The patient reports that she was grocery shopping when she hit the leg against a shelf. There has been continued bleeding. The patient takes Plavix. Her tetanus is up-to-date. She denies any pain at this time. Review of Systems A 6 point review of systems was reviewed with the patient with pertinent positives and negatives as per history of present illness. All else were negative. Past Medical/Surgical History Medical Problems: (1) Benign hypertension (2) Carotid stenosis (3) Cerebrovascular disease, arteriosclerotic, post-stroke (4) CKD (chronic kidney disease), stage III (5) DM type 2 (diabetes mellitus, type 2) (6) Dyslipidemia (7) Epilepsy (8) failed hardware right hip (9) GERD (gastroesophageal reflux disease) (10) Hypothyroidism (11) Intertrochanteric fracture of right hip (12) Migraine (13) Osteoarthritis (14) Vertebral fracture, osteoporotic Surgical Problems: (1) H/O total knee replacement (2) History of bilateral knee replacement (3) History of left-sided carotid endarterectomy (4) S/P cholecystectomy (5) S/P rotator cuff repair (6) S/p trochanteric nail right hip Family History Asthma FATHER Diabetes mellitus MOTHER FH: cancer MOTHER FH: heart disease FATHER MOTHER FH: pulmonary embolism MOTHER Hypertension FATHER MOTHER Social History Smoking Status: Never Smoker Alcohol Use: none Marital Status: Housing Status: other Occupation Status: retired Current/Historical Medications Scheduled Acetaminophen (Sb Non-Aspirin Extra Stre), 1,000 MG PO Q8H Aspirin (Aspirin EC Low Dose), 81 MG PO DAILY Atorvastatin (Atorvastatin Calcium), 40 MG PO HS Calcium Carbonate-Vitamin D W/ (Caltrate 600 Plus), 1 TAB PO QAM Clopidogrel (Plavix), 75 MG PO QAM Ferrous Gluconate (Ferrous Gluconate), 324 MG PO TIDM Glipizide (Glipizide Er), 1 TAB PO QAM Lamotrigine (Lamictal), 100 MG PO BID Levothyroxine Sodium (Levothyroxine Sodium), 112 MCG PO QAM Metformin Hcl (Glucophage), 500 MG PO QAM Multiple Vitamin (Daily-Rajani), 1 TAB PO QAM Zonisamide (Zonegran), 200 MG PO BID Scheduled PRN Tramadol HCl (Tramadol HCl), 50-100 MG PO Q4H PRN for Pain Physical Exam Vital Signs Date Time Temp Pulse Resp B/P (MAP) Pulse Ox O2 Delivery O2 Flow Rate FiO2 10/19/17 19:35 36.7 74 20 140/83 95 Room Air Physical Exam VITALS: Vitals are noted on the nurse's note and reviewed by myself. Vital signs stable. GENERAL: This is a 72-year-old female, in no acute distress, nondiaphoretic, well-developed well-nourished. SKIN: There is a 4 cm V-shaped flap-like laceration to the lateral aspect of the lower right leg. Part of the flap is very thin and likely non-viable. There is an additional 3 cm superficial laceration lateral to this. NEURO: Patient was alert and oriented to person place and time. Normal sensation. Medical Decision & Procedures Procedure Verbal consent was obtained to perform the procedure. Using sterile technique the wound was cleaned with Betadine. The area was sterilely draped. 4 ml of 1 % buffered lidocaine with epinephrine was used to anesthetize the right leg laceration. Once the patient was anesthetized, the wound was copiously irrigated under pressure with sterile saline. The wound was explored and there were no deep structures injured such as tendons, bone, or significant blood vessels. The laceration was repaired using 7 simple interrupted 5-0 nylon sutures with the wound edges being well approximated. Dermabond was applied to the more superficial areas of the wound. The patient tolerated the procedure well. Hemostasis was achieved. The area was cleaned with sterile saline and dressed with bacitracin ointment and bandage. Medical Decision The patient was evaluated as above. Laceration repair was performed as noted in the procedure section. Antibiotic ointment and dressing was placed over the wound. The patient was instructed on daily dressing changes. Suture care instructions were discussed with the patient. She does have home health to help with dressing changes and to evaluate the wound. She is a diabetic and will need to care closely for the wound in order to fully heal. She was instructed to return to her primary care provider for suture removal and sooner for any signs of infection. She verbalized understanding of my assessment and treatment plan and was discharged home in good condition. The patient was independently evaluated by Dr. Viveros, ED attending physician, who agreed with my assessment and treatment plan. Medication Reconcilliation Current Medication List: was personally reviewed by me Blood Pressure Screening Patient's blood pressure: Elevated blood pressure Blood pressure disposition: Elevated BP felt to be situational Impression Primary Impression: Laceration of lower extremity Departure Information Dispostion Home / Self-Care Condition GOOD Referrals Sabrina Hood D.O. (PCP) Patient Instructions My [facility] Additional Instructions You have received 7 sutures on your right leg. These sutures are NOT dissolvable and WILL need to be removed by a health care provider in 12-14 days. You can return to the Emergency Department or contact your Primary Care Provider to have the sutures removed. Proper wound care is essential for adequate wound healing and infection prevention. You can shower and clean the wound with soap and water. Do not scour over the wound, pat dry with a towel. Do not submerse the wound (i.e. bathe or dish wash) until the sutures have been removed. You can use an antibiotic ointment with a dressing over the wound for the next 3-4 days. After this time you may leave the wound dry and open to the air. If crust develops over the wound you can use a Q-tip to apply a 1:1 peroxide:water solution to clean the wound. Look for signs of infection of the wound including: increased pain, swelling, foul discharge, streaking, or increased temperature. If any of these are noticed you should return to the Emergency Department for further assessment and treatment. As with any laceration you may have received nerve damage to the surrounding tissues. This damage may or may not be permanent. You should keep the area covered with sunscreen for the first 6 months to 1 year when at risk for exposure to help minimize scarring. You can also use scar reducing creams or Vitamin E oil to help minimize scarring. For pain control, you can use the following edcr-[id number]-afigout medicines (if >12 yo): - Regular strength (325mg/tab) Tylenol (acetaminophen) 2 tabs every 4-6 hours as needed. Do not exceed 12 tablets in a 24 hour period. Avoid taking more than 4 grams (4000 mg) of Tylenol per day. This includes any other sources of acetaminophen you may take on a regular basis. - Regular strength (200 mg/tab) Advil (ibuprofen) 1-2 tabs every 4-6 hours as needed. Do not exceed a dose of 3200 mg per day. Return to the emergency department if your symptoms worsen despite treatment course outlined above. Problem Qualifiers Primary Impression: Laceration of lower extremity Encounter type: initial encounter Laterality: right Qualified Codes: S81.811A - Laceration without foreign body, right lower leg, initial encounter
[2017-10-19 21:06] VITALS: BP 127/88; PULSE 81; O2SAT 96
--- NOTE | 2017-10-19 21:12 | EMERGENCY ROOM VISIT NOTE ---
ED Visit Note First contact with patient: 19:33 I have personally evaluated this patient examined her and reviewed the pertinent labs and data. I have discussed the case with Cherelle Chandler, the physician anesthesiologist assistant certified and agree with the plan. Please refer to the PA note. This patient comes in after suffering a laceration on her right dumas on the corner of a freezer. It was a clean wound. The wound was closed by Cherelle Chandler. Tetanus booster is upto date. She is neurologically and neurovascularly intact on my exam. She will be discharged with and return if any problems, specifically if she has redness, pus, fever, any new problems or concerns.
== END 2017-10-19 21:00 | disposition home or self-care (01) ==
LOC: EDBD 19:29 → C.EDD 19:30
DX: S81.811A Laceration without foreign body, right lower leg, initial encounter (principal); W22.8XXA Striking against or struck by other objects, initial encounter; Y92.512 Supermarket, store or market as the place of occurrence of the external cause; I12.9 Hypertensive chronic kidney disease with stage 1 through stage 4 chronic kidney disease, or unspecified chronic kidney disease; I65.29 Occlusion and stenosis of unspecified carotid artery; N18.3 Chronic kidney disease, stage 3 (moderate); E11.22 Type 2 diabetes mellitus with diabetic chronic kidney disease; E78.5 Hyperlipidemia, unspecified; G40.909 Epilepsy, unspecified, not intractable, without status epilepticus; E03.9 Hypothyroidism, unspecified; G43.909 Migraine, unspecified, not intractable, without status migrainosus; M19.90 Unspecified osteoarthritis, unspecified site; Z96.653 Presence of artificial knee joint, bilateral; Z83.3 Family history of diabetes mellitus; Z82.49 Family history of ischemic heart disease and other diseases of the circulatory system; Z79.82 Long term (current) use of aspirin; Z79.02 Long term (current) use of antithrombotics/antiplatelets; Z79.899 Other long term (current) drug therapy

== ENCOUNTER 2017-10-29 11:45 | Emergency (ER) | payer OTHER ==
[~2017-10-29] VITALS: Ht 157.5 cm; Wt 70.0 kg
[~2017-10-29 11:45] MED LIST changes: -ASPEC81 PO; +ASPI-320 PO
[2017-10-29 11:49] VITALS: BP 124/63; PULSE 99; TEMP 36.2; O2SAT 99; Ht 157.5 cm; Wt 70.0 kg
--- NOTE | 2017-10-29 12:16 | EMERGENCY ROOM VISIT NOTE ---
ED Visit Note First contact with patient: 11:59 CHIEF COMPLAINT: Suture removal This patient returns to the ED today for removal of sutures that were placed 10 days ago. There has been no swelling, redness, or drainage from the wound. The patient feels like the laceration is healing well. REVIEW OF SYSTEMS: Head: No headache, injury or neck pain. Skin: No rash, new lesions, or masses. General: No fever or chills, fatigue, loss of appetite , or significant recent weight gain or loss. PMH: Reviewed and unchanged from prior visit. SOCIAL HISTORY: Patient lives at home. PHYSICAL EXAM: Vital Signs: Reviewed Nurse's notes. There is a sutured wound on the anterior lateral mid right lower leg with no signs of infection. There is no erythema, swelling, or tenderness. EMERGENCY DEPARTMENT COURSE: The sutures were removed without any difficulty and there was no separation of the wound edges. Benzoin and Steri-Strips were used to reinforce the wound. Medication reconciliation: I attest that I have personally reviewed the patient' s current medication list. Blood pressure screening : Patient was found to have normal blood pressure on screening and does not require follow-up. Problem List Medical Problems: (1) Benign hypertension Status: Chronic (2) Carotid stenosis Status: Chronic (3) Cerebrovascular disease, arteriosclerotic, post-stroke Status: Chronic (4) CKD (chronic kidney disease), stage III Status: Chronic (5) DM type 2 (diabetes mellitus, type 2) Status: Chronic (6) Dyslipidemia Status: Chronic (7) Epilepsy Status: Chronic (8) GERD (gastroesophageal reflux disease) Status: Chronic (9) Hypothyroidism Status: Chronic (10) Intertrochanteric fracture of right hip Status: Resolved (11) Migraine Status: Chronic (12) Osteoarthritis Status: Chronic (13) Vertebral fracture, osteoporotic Status: Chronic Surgical Problems: (1) H/O total knee replacement Status: Resolved (2) History of bilateral knee replacement Status: Chronic (3) History of left-sided carotid endarterectomy Status: Chronic (4) S/P cholecystectomy Status: Chronic (5) S/P rotator cuff repair Status: Chronic (6) S/p trochanteric nail right hip Status: Chronic Current/Historical Medications Scheduled Acetaminophen (Sb Non-Aspirin Extra Stre), 1,000 MG PO Q8H Aspirin (Aspirin EC Low Dose), 81 MG PO DAILY Atorvastatin (Atorvastatin Calcium), 40 MG PO HS Calcium Carbonate-Vitamin D W/ (Caltrate 600 Plus), 1 TAB PO QAM Clopidogrel (Plavix), 75 MG PO QAM Ferrous Gluconate (Ferrous Gluconate), 324 MG PO TIDM Glipizide (Glipizide Er), 1 TAB PO QAM Lamotrigine (Lamictal), 100 MG PO BID Levothyroxine Sodium (Levothyroxine Sodium), 112 MCG PO QAM Metformin Hcl (Glucophage), 500 MG PO QAM Multiple Vitamin (Daily-Rajani), 1 TAB PO QAM Zonisamide (Zonegran), 200 MG PO BID Scheduled PRN Tramadol HCl (Tramadol HCl), 50-100 MG PO Q4H PRN for Pain Allergies Coded Allergies: Omeprazole (Verified Allergy, Severe, throat swelling, 10/19/17) Codeine (Unverified Adverse Reaction, Unknown, NAUSEA/VOMITING, 10/19/17) Morphine (Verified Adverse Reaction, Unknown, nausea/vomiting, 10/19/17) Oxycodone (Verified Adverse Reaction, Unknown, nausea/vomiting, 10/19/17) Vital Signs Date Time Temp Pulse Resp B/P (MAP) Pulse Ox O2 Delivery O2 Flow Rate FiO2 10/29/17 11:49 36.2 99 18 124/63 99 Departure Information Impression Primary Impression: Encounter for removal of sutures Referrals Sabrina Hood D.O. (PCP) Patient Instructions My [facility]
[2018-02-01] MEDS ORDERED: CIPR1TAB11 PO (13:13)
== END 2017-10-29 12:22 | disposition home or self-care (01) ==
LOC: C.EDB 11:45 → C.EDD 12:22
DX: S81.811D Laceration without foreign body, right lower leg, subsequent encounter (principal); X58.XXXD Exposure to other specified factors, subsequent encounter; I12.9 Hypertensive chronic kidney disease with stage 1 through stage 4 chronic kidney disease, or unspecified chronic kidney disease; I65.29 Occlusion and stenosis of unspecified carotid artery; N18.3 Chronic kidney disease, stage 3 (moderate); E11.22 Type 2 diabetes mellitus with diabetic chronic kidney disease; E78.5 Hyperlipidemia, unspecified; G40.909 Epilepsy, unspecified, not intractable, without status epilepticus; E03.9 Hypothyroidism, unspecified; K21.9 Gastro-esophageal reflux disease without esophagitis; M19.90 Unspecified osteoarthritis, unspecified site; Z96.653 Presence of artificial knee joint, bilateral; Z79.02 Long term (current) use of antithrombotics/antiplatelets; Z79.84 Long term (current) use of oral hypoglycemic drugs; Z79.899 Other long term (current) drug therapy; Z90.49 Acquired absence of other specified parts of digestive tract

== ENCOUNTER 2018-02-22 21:26 | Emergency (ER) | payer OTHER ==
[~2018-02-22] VITALS: Ht 157.5 cm; Wt 82.0 kg
[2018-02-22 21:31] VITALS: BP 154/112; PULSE 91; TEMP 36.8; O2SAT 96; Ht 157.5 cm; Wt 82.0 kg
--- NOTE | 2018-02-23 00:35 | EMERGENCY ROOM VISIT NOTE ---
History Report prepared by Edouard: Bob La Under the Supervision of: Dr. Venancio Palma M.D. First contact with patient: 21:49 Chief Complaint: SKIN PROBLEM Stated Complaint: SKIN FLAKES History of Present Illness The patient is a 72 year old female who presents to the Emergency Room with complaints of worsening skin flakes that started over 6 weeks ago. She states that she was seen by Dr. Hood, and was told that the flakes were related to the weather, and would go away when the "weather breaks". The patient says that she has been having skin flakes all over her body, including her arms and back. She states that she noticed the flakes starting to move to her face this morning, but notes that the flakes are "dormant right now". The patient notes that the flakes burn but are not itchy. Per the patient's daughter, she noticed the flakes coming off of the patient's scalp a few days ago when she was brushing her hair. The daughter states that they look like dandruff. She denies any pain, fevers, vomiting, urinary symptoms, or bowel movement problems. The patient states that she will not go back to wound clinic for an ulcer on her right leg. Source of History: patient, caregiver Onset: Over 6 weeks ago Position: other (global) Symptom Intensity: flakes burn but are not itchy, moving to face Quality: other (skin flakes) Associated Symptoms: No fevers, No vomiting, No urinary symptoms (or bowel movement problems) Note: Associated symptoms: Denies any pain. Review of Systems See HPI for pertinent positives & negatives. A total of 6 systems reviewed and were otherwise negative. Past Medical & Surgical Medical Problems: (1) Benign hypertension (2) Carotid stenosis (3) Cerebrovascular disease, arteriosclerotic, post-stroke (4) CKD (chronic kidney disease), stage III (5) DM type 2 (diabetes mellitus, type 2) (6) Dyslipidemia (7) Epilepsy (8) failed hardware right hip (9) GERD (gastroesophageal reflux disease) (10) Hypothyroidism (11) Intertrochanteric fracture of right hip (12) Migraine (13) Osteoarthritis (14) Vertebral fracture, osteoporotic Surgical Problems: (1) H/O total knee replacement (2) History of bilateral knee replacement (3) History of left-sided carotid endarterectomy (4) S/P cholecystectomy (5) S/P rotator cuff repair (6) S/p trochanteric nail right hip Family History Asthma FATHER Diabetes mellitus MOTHER FH: cancer MOTHER FH: heart disease FATHER MOTHER FH: pulmonary embolism MOTHER Hypertension FATHER MOTHER Social History Smoking Status: Never Smoker Alcohol Use: none Marital Status: Housing Status: other Occupation Status: retired Current/Historical Medications Scheduled Acetaminophen (Sb Non-Aspirin Extra Stre), 1,000 MG PO Q8H Aspirin (Aspirin EC Low Dose), 81 MG PO DAILY Atorvastatin (Lipitor), 40 MG PO HS Calcium Carbonate-Vitamin D W/ (Caltrate 600 Plus), 1 TAB PO QAM Clopidogrel (Plavix), 75 MG PO QAM Ferrous Gluconate (Ferrous Gluconate), 324 MG PO TIDM Glipizide (Glipizide Er), 1 TAB PO QAM Lamotrigine (Lamictal), 100 MG PO BID Levothyroxine Sodium (Levothyroxine Sodium), 112 MCG PO QAM Metformin Hcl (Glucophage), 500 MG PO QAM Multiple Vitamin (Daily-Rajani), 1 TAB PO QAM Zonisamide (Zonegran), 200 MG PO BID Scheduled PRN Tramadol HCl (Tramadol HCl), 50-100 MG PO Q4H PRN for Pain Allergies Coded Allergies: Omeprazole (Verified Allergy, Severe, throat swelling, 10/19/17) Alendronate (Verified Allergy, Unknown, GI SYMPTOMS, 02/01/18) Oxytocin (Verified Allergy, Unknown, Nausea and vomiting, 02/01/18) Pioglitazone (Verified Allergy, Unknown, Edema BLE, 02/01/18) Prednisone (Verified Allergy, Unknown, Nausea and vomiting, 02/01/18) Risedronate (Verified Allergy, Unknown, Headache and weakness, 02/01/18) Sitagliptin (Verified Allergy, Unknown, Itching, 02/01/18) Valproic Acid (Verified Allergy, Unknown, Affected her memory, 02/01/18) Codeine (Unverified Adverse Reaction, Unknown, NAUSEA/VOMITING, 10/19/17) Morphine (Verified Adverse Reaction, Unknown, nausea/vomiting, 10/19/17) Oxycodone (Verified Adverse Reaction, Unknown, nausea/vomiting, 10/19/17) Physical Exam Vital Signs Date Time Temp Pulse Resp B/P (MAP) Pulse Ox O2 Delivery O2 Flow Rate FiO2 02/22/18 21:31 36.8 91 20 154/112 96 Room Air Physical Exam Constitutional: Vital signs reviewed. Eyes: Pupils are equal round reactive to light. Conjunctiva are noninjected. ENT: Pharynx is clear without erythema or exudate. Mucous membranes are moist. Neck supple without meningeal signs. Respiratory: Clear to auscultation bilaterally. Breath sounds are equal bilaterally. Cardiovascular: Regular rate and rhythm. No rubs or gallops. GI: Soft, nondistended and nontender. Bowel sounds are present. Musculoskeletal: No peripheral edema. No lower extremity tenderness. Integumentary: No signs of rash or flaky skin. She has a 1 cm shallow venous stasis ulceration to the right lower extremity without surrounding cellulitis or discharge. Neurological: The patient is awake and alert. No focal deficits. Psychiatric: Normal affect. Medical Decision & Procedures ED Course 2151: The patient was evaluated in room A12B. A complete history and physical exam was performed. I discussed tonight's findings with her. She verbalized agreement of the treatment plan. She will be discharged home. Medical Decision This is a 72-year-old female presents with flaking of her skin for over 6 weeks. I did perform a limited focused review of portions of the patient's old chart on the electronic medical record. The patient was seen by the wound care clinic on February 08 for a chronic venous stasis ulcer, which was treated with debridement. I did evaluate the patient as noted above. She is presenting with symptoms that have been occurring over 6 weeks. She states she gets dry and flaky skin with occasional pain. She notices over her body and this morning noticed that over her face which prompted her visit here. Her daughter states that when she brushes her hair it looks like dandruff to her. Currently she has no signs of any type of rash or skin condition on her body. I did do a thorough examination. She does have a chronic venous stasis ulceration in the right leg which appears to be healing without signs of infection. Given the lack of any dermatologic findings I did not feel comfortable giving her any other recommendations other than to continue with moisturizers and to follow-up with her doctor. She does have an appointment with her on March 01. The patient was discharged in good condition. Medication Reconcilliation Current Medication List: was personally reviewed by me Blood Pressure Screening Patient's blood pressure: Elevated blood pressure Blood pressure disposition: Referred to PCP Impression Primary Impression: Encounter for wound re-check Additional Impressions: Venous stasis ulcer of right lower extremity Screening for skin condition Scribe Attestation The scribe's documentation has been prepared under my direct and personally reviewed by me in its entirety. I confirm that the note above accurately reflects all work, treatment, procedures, and medical decision making performed by me. Departure Information Dispostion Home / Self-Care Referrals Sabrina Hood D.O. (PCP) Patient Instructions My [facility] Additional Instructions You have been examined and treated today on an emergency basis only. This is not a substitute for, or an effort to provide, complete comprehensive medical care. It is impossible to recognize and treat all injuries or illnesses in a single emergency department visit. It is therefore important that you follow up closely with your physician per your appointment. Return for worsening symptoms or if you develop fever, vomiting, significant redness, increased warmth or discharge from your right leg wound or any other concerning symptoms. Problem Qualifiers
== END 2018-02-22 22:36 | disposition home or self-care (01) ==
LOC: C.EDB 21:27 → C.EDA 22:36
DX: Z09 Encounter for follow-up examination after completed treatment for conditions other than malignant neoplasm (principal); I83.008 Varicose veins of unspecified lower extremity with ulcer other part of lower leg; N18.3 Chronic kidney disease, stage 3 (moderate); Z13.89 Encounter for screening for other disorder; I12.9 Hypertensive chronic kidney disease with stage 1 through stage 4 chronic kidney disease, or unspecified chronic kidney disease; Z86.73 Personal history of transient ischemic attack (TIA), and cerebral infarction without residual deficits; E11.9 Type 2 diabetes mellitus without complications; E78.5 Hyperlipidemia, unspecified; G40.909 Epilepsy, unspecified, not intractable, without status epilepticus; K21.9 Gastro-esophageal reflux disease without esophagitis; E03.9 Hypothyroidism, unspecified; M19.90 Unspecified osteoarthritis, unspecified site; Z96.653 Presence of artificial knee joint, bilateral; Z90.49 Acquired absence of other specified parts of digestive tract; Z82.5 Family history of asthma and other chronic lower respiratory diseases; Z83.3 Family history of diabetes mellitus; Z80.9 Family history of malignant neoplasm, unspecified; Z82.49 Family history of ischemic heart disease and other diseases of the circulatory system; Z79.82 Long term (current) use of aspirin; Z79.899 Other long term (current) drug therapy; Z79.84 Long term (current) use of oral hypoglycemic drugs; Z88.5 Allergy status to narcotic agent; Z88.8 Allergy status to other drugs, medicaments and biological substances

== ENCOUNTER 2019-01-31 20:21 | Inpatient (IN) ==
[2019-01-31 21:21] LABS: Basophils # (auto) 0.03 K/uL (0-0.2); Basophils % (auto) 0.4 %; Eosinophils # (auto) 0.18 K/uL (0-0.5); Eosinophils % (auto) 2.2 %; Hematocrit (blood only) 38.9 % (37-47); Immature Granulocytes # (auto) 0.02 K/uL (0.00-0.02); Immature Granulocytes % (auto) 0.2 %; Lymphocytes # (auto) 1.32 K/uL (1.2-3.4); Lymphocytes % (auto) 16.1 %; Mean Corpuscular Hemoglobin 32.3 pg (25-34); Mean Corpuscular Hgb Conc 33.4 g/dL (32-36); Mean Corpuscular Volume 96.5 fL (80-100); Mean Platelet Volume 9.2 fL (7.4-10.4); Monocytes # (auto) 0.57 K/uL (0.11-0.59); Neutrophils # (auto) 6.08 K/uL (1.4-6.5); Neutrophils % (auto) 74.1 %; Platelet Count 233 K/uL (130-400); RDW Coefficient of Variation 13.3 % (11.5-14.5); RDW Standard Deviation 46.6 fL (36.4-46.3); Red Blood Count 4.03 M/uL (4.2-5.4)
[2019-01-31 21:31] LABS: Partial Thromboplastin Ratio 0.9; Partial Thromboplastin Time 24.6 Seconds (21.0-31.0)
--- NOTE | 2019-01-31 21:34 | XRay Report ---
XR chest 1V portable HISTORY: Dyspnea COMPARISON: Chest 05/05/2017. FINDINGS: No pneumothorax. No pleural effusions. The heart remains borderline enlarged. There are few linear densities within the left mid to lower lung zone. Otherwise, lungs are clear. Old posttraumat ic deformities within the bilateral shoulders with advanced degenerative change. IMPRESSION: A few linear densities within the left mid to lower lung zone. This favors atelectasis or scarring. P neumonia could also have a similar appearance but is considered less likely. Electronically signed by: Golden Harris M.D. 01/31/2019 9:33 PM
[2019-01-31 21:37] LABS: Alanine Aminotransferase 11 U/L (12-78); Albumin Level 3.5 gm/dl (3.4-5.0); Aspartate Aminotransferase 19 U/L (15-37); BUN Creatinine Ratio 14.4 (10-20); Blood Urea Nitrogen 24 mg/dl (7-18); Calcium 8.8 mg/dl (8.5-10.1); Carbon Dioxide 30 mmol/L (21-32); Chloride 106 mmol/L (98-107); Creatinine Clr Calc Pharmacy 31.5 ml/min; Est GFR (African American) 35.6; Est GFR (Non-African American) 30.7; Glucose 280 mg/dl (70-99); Potassium 3.4 mmol/L (3.5-5.1); Sodium 141 mmol/L (136-145)
[2019-01-31 21:42] LABS: Alkaline Phosphatase 209 U/L (45-117); Bilirubin,Total 0.4 mg/dl (0.2-1); Globulin 3.6 gm/dl (2.5-4.0); NT Pro B Type Natriuretic Pept 173 pg/ml (0-900); Total Protein 7.1 gm/dl (6.4-8.2); Troponin I < 0.015 ng/ml (0-0.045)
--- NOTE | 2019-01-31 22:02 | Ultrasound Report ---
LEFT LOWER EXTREMITY VENOUS DOPPLER HISTORY: Left leg pain. Dyspnea COMPARISON STUDY: None. FINDINGS: There is normal compressibility, flow, and augmentation within the left lower extremity ros p venous system. IMPRESSION: No DVT within the left lower extremity. Electronically signed by: Golden Harris M.D. 01/31/2019 10:01 PM
[2019-01-31] MEDS ORDERED: CEFAZOLIN 3000MG/72.5 ML BAG IV STA (22:21)
[2019-01-31] MEDS ORDERED: SODIUM CHLORIDE 0.9% 1000ML 500 ML IV ONE (22:26)
--- NOTE | 2019-02-01 00:20 | History & Physical Report ---
Date of Service February 01, 2019 Assessment & Plan (1) Cellulitis: 73yoF with hx of chronic venous stasis, PAD, CVA without any deficits, DM2, HTN, CKDIII, b/l carotid stenosis s/p L CEA, generalized seizure disorder (no seizure since 2003), hypothyroidism, OA s/p TKA presents with bilateral low er leg worsening erythema, and edema with oozing x 3 days. Cellulitis bilateral LEs: no systemic symptoms -Hx of PAD, venous stasis with worsening erythema and edema -No WBC elevation -BNP and troponin wnl -LLE venous doppler: No DVT -Received Ancef in ED -Started on Vanc and Zosyn -Continue to monitor closely CAD/HLD/HTN -Continue lipitor, plavix -Hold HCTZ in the setting of mild hypotension - Started on IVFs NS at 60cc/hr and received 500cc IVF bolus in ED DM -Hold glipizide and metformin in the setting of worsening renal function -Started on SSI -ACHS BSG checks Hx of CKDIII -BUN/Cr 24/1.65 improved from 1.76 yesterday -Pt somewhat hypovolemic and started on IVFs at 60cc/hr -Monitor BMP Generalized Seizure disorder -Continue home lamictal and zonegran Hypothyroidism -Continue home synthroid Diet: DM2 VTE prop: Heparin Code: DNR/DNI Dispo: Med/surg telemetry (2) Epilepsy: (3) Hypothyroidism: (4) DM type 2 (diabetes mellitus, type 2): (5) Carotid stenosis: (6) Cerebrovascular disease, arteriosclerotic, post-stroke: (7) GERD (gastroesophageal reflux disease): (8) CKD (chronic kidney disease), stage III: (9) Osteoarthritis: (10) Dyslipidemia: (11) History of bilateral knee replacement: History of Present Illness Primary Care Provider: Hafsa Israel MD 73yoF with hx of chronic venous stasis, PAD, CVA without any deficits, DM2, HTN, CKDIII, b/l carotid stenosis s/p L CEA, generalized seizure disorder (no seizure since 2003), hypothyroidism, OA s/p TKA presents with bilateral lower leg worsening erythema, and edema with oozing x 3 days. Per patient, her legs were looking worse on wednesday. Legs started oozing for the first time and she noticed worsening erythema and edema of her legs. No significant pain reported. She went to see PCP yesterday and saw a PA who did not think she needed abx, considered ordering Lasix but did not order it, and ordered labs. She waited to hear back about labs today but was never called back. She then proceeded to come to the ED. Pt has compression stockings but has trouble putting them on so she does not wear them. A/w mild chills Denies any fever, sob, cp, n/v, abdominal pain, d/c, hematochezia, melena, dysuria, hematuria Allergies Allergy/AdvReac Type Severity Reaction Status Date / Time omeprazole Allergy Severe throat Verified 10/19/17 20:43 swelling alendronate sodium Allergy Unknown GI SYMPTOMS Verified 02/01/18 13:18 oxytocin Allergy Unknown Nausea and Verified 01/31/19 21:39 vomiting pioglitazone Allergy Unknown Edema BLE Verified 02/01/18 13:18 prednisone Allergy Unknown Nausea and Verified 02/01/18 13:18 vomiting risedronate sodium Allergy Unknown Headache Verified 02/01/18 13:18 and weakness sitagliptin Allergy Unknown Itching Verified 02/01/18 13:18 valproic acid Allergy Unknown Affected Verified 02/01/18 13:18 her memory fluoxetine [From Prozac] Allergy Unknown Verified 01/31/19 21:39 codeine AdvReac Unknown NAUSEA/VOMI Unverified 01/31/19 21:39 TING morphine AdvReac Unknown nausea/vomi Verified 01/31/19 21:39 ting oxycodone AdvReac Unknown nausea/vomi Verified 10/19/17 20:43 ting Home Medications Home Medications Medication Instructions Recorded Confirmed Type atorvastatin [Lipitor] 40 mg PO QPM 01/31/19 01/31/19 History clopidogrel [Plavix] 75 mg PO DAILY 01/31/19 01/31/19 History fluocinonide 1 applic TOPICAL UD 01/31/19 01/31/19 History glipizide [Glucotrol XL] 10 mg PO DAILY 01/31/19 01/31/19 History hydrochlorothiazide 25 mg PO DAILY 01/31/19 01/31/19 History lamotrigine [Lamictal] 100 mg PO BID 01/31/19 01/31/19 History levothyroxine [Synthroid] 112 mcg PO DAILY 01/31/19 01/31/19 History metformin [Glucophage] 500 mg PO DAILY 01/31/19 01/31/19 History sulindac 150 mg PO DAILY 01/31/19 01/31/19 History zonisamide [Zonegran] 200 mg PO BID 01/31/19 01/31/19 History cephalexin [Keflex] 500 mg PO Q8H 5 Days #15 cap 02/01/19 Rx Past Med/Surg History Medical History Epilepsy (Chronic) Hypothyroidism (Chronic) DM type 2 (diabetes mellitus, type 2) (Chronic) Carotid stenosis (Chronic) Cerebrovascular disease, arteriosclerotic, post-stroke (Chronic) Vertebral fracture, osteoporotic (Chronic) Migraine (Chronic) GERD (gastroesophageal reflux disease) (Chronic) CKD (chronic kidney disease), stage III (Chronic) Dyslipidemia (Chronic) Osteoarthritis (Chronic) Surgical History History of left-sided carotid endarterectomy (Chronic) History of bilateral knee replacement (Chronic) S/P cholecystectomy (Chronic) S/P rotator cuff repair (Chronic) Social History Communication Ability: Effective Beliefs That Will Affect Care: None marital status: Current Living Situation: Alone Feels Safe at Home: Yes Smoking Status: Never smoker Hx Alcohol Use: No Hx Substance Use: No Review of Systems As per HPI Physical Exam Vital Signs (Past 24 Hours): Last Vital Signs Temp 36.9 C 01/31/19 20:37 Pulse 79 01/31/19 23:59 Resp 20 01/31/19 23:59 BP 119/58 L 01/31/19 23:59 Pulse Ox 95 01/31/19 23:59 Physical Exam: General: In NAD Neuro: A&O x 4 CV: RRR, no m/r/g Pulm: Bilateral posterior mid and lower lung field mild crackles appreciated, equal breath sounds bilaterally, on RA GI: +BS, non-distended, NTTP in all quadrants, epigastric region abdominal hernia repair mesh palpable extremities: bilateral pretibial 2+ edema with increased warmth and intense erythema of bilateral legs (mainly over anterior aspect of legs but extending some to calves as well; L leg extends to knee and R leg to mid leg region) Results & Data Laboratory Results Abnormal lab results 01/31/19 01/31/19 Range/Units 20:52 20:59 RBC 4.03 L (4.2-5.4) M/uL RDW Std Deviation 46.6 H (36.4-46.3) fL Potassium 3.4 L (3.5-5.1) mmol/L BUN 24 H (7-18) mg/dl Creatinine 1.65 H (0.6-1.2) mg/dl Glucose 280 H (70-99) mg/dl ALT 11 L (12-78) U/L Alkaline Phosphatase 209 H (45-117) U/L Diagnostic Findings LEFT LOWER EXTREMITY VENOUS DOPPLER HISTORY: Left leg pain. Dyspnea COMPARISON STUDY: None. FINDINGS: There is normal compressibility, flow, and augmentation within the left lower extremity deep venous system. IMPRESSION: No DVT within the left lower extremity. XR chest 1V portable HISTORY: Dyspnea COMPARISON: Chest 05/05/2017. FINDINGS: No pneumothorax. No pleural effusions. The heart remains borderline enlarged. There are few linear densities within the left mid to lower lung zone. Otherwise, lungs are clear. Old posttraumatic deformities within the bilateral shoulders with advanced degenerative change. IMPRESSION: A few linear densities within the left mid to lower lung zone. This favors atelectasis or scarring. Pneumonia could also have a similar appearance but is considered less likely. Code Status & VTE Plan Code Status DNR/DNI VTE Prophylaxis Plan VTE Prophylaxis will be ordered: Yes Supervising Physician Co-Signing Physician Notes Attending addendum: I have physically seen this patient, have supervised the medical residents activities, and agree with the H&P unless as otherwise noted. Assessment and Plan: Lower extremity cellulitis/venous insufficiency, stasis-- Venous Dopplers negative for DVT. Given Ancef 3 g IV in the ED. Placed on vancomycin IV and Zosyn IV with history of diabetes mellitus and immunosuppression. Follow clinical examination closely. CAD/hypertension/JEFFERSON on CKD-- Holding HCTZ due to relative low blood pressure. Gentle fluid rehydration with normal saline at 60 mL's per hour. Repeat laboratories in a.m. Diabetes mellitus-- Hold metformin, and do not resume unless creatinine is less than 1.4. Hold glipizide. [place] Accu-Cheks before meals and at bedtime with NovoLog coverage per scale. Resident Activity Tracking Resident Involvement: Resident Care Provided Care Provided: Adult Hospital Medicine (1) Cellulitis Laterality: left Site of cellulitis: extremity Site of cellulitis of extremity: lower extremity Qualified Code(s): L03.116 - Cellulitis of left lower limb
--- NOTE | 2019-02-01 00:28 | Emergency Department Note ---
Entered by Maria Guadalupe Anglin acting as a scribe for History of Present Illness General Chief complaint: Swelling/Edema to Extremity Source: patient Mode of arrival: EMS Limitations: no limitations History of Present Illness Provider complaint: left leg redness Onset (ago): day(s) 3 Location: lower extremity and left Pain Consistency: + other (worsening) Maximum Pain Intensity: 1 Quality: + other (redness) Associated symptoms: + denies other symptoms (rhinorrhea); no cough, no fever/chills and no shortness of breath The patient is a 73 year old female who presents to the Emergency Room with complaints of a worsening left leg redness that began on Wednesday. The patient reports that she has had chronic leg redness and swelling on the right but notes that this has gotten worse. She notes her left leg has been worse recently. She also states that her right leg had a mild leak earlier today. She denies a hist ory of heart failure but reports she has a history of a mini-stroke. She denies any fevers, chills, coughs, rhinorrhea or shortness of breath. No other exacerbating or remitting factors. Home Medications Home Medications Medication Instructions Recorded Confirmed Type atorvastatin [Lipitor] 40 mg PO QPM 01/31/19 01/31/19 History clopidogrel [Plavix] 75 mg PO DAILY 01/31/19 01/31/19 History fluocinonide 1 applic TOPICAL UD 01/31/19 01/31/19 History glipizide [Glucotrol XL] 10 mg PO DAILY 01/31/19 01/31/19 History hydrochlorothiazide 25 mg PO DAILY 01/31/19 01/31/19 History lamotrigine [Lamictal] 100 mg PO BID 01/31/19 01/31/19 History levothyroxine [Synthroid] 112 mcg PO DAILY 01/31/19 01/31/19 History metformin [Glucophage] 500 mg PO DAILY 01/31/19 01/31/19 History sulindac 150 mg PO DAILY 01/31/19 01/31/19 History zonisamide [Zonegran] 200 mg PO BID 01/31/19 01/31/19 History Allergies Allergy/AdvReac Type Severity Reaction Status Date / Time omeprazole Allergy Severe throat Verified 10/19/17 20:43 swelling alendronate sodium Allergy Unknown GI SYMPTOMS Verified 02/01/18 13:18 oxytocin Allergy Unknown Nausea and Verified 01/31/19 21:39 vomiting pioglitazone Allergy Unknown Edema BLE Verified 02/01/18 13:18 prednisone Allergy Unknown Nausea and Verified 02/01/18 13:18 vomiting risedronate sodium Allergy Unknown Headache Verified 02/01/18 13:18 and weakness sitagliptin Allergy Unknown Itching Verified 02/01/18 13:18 valproic acid Allergy Unknown Affected Verified 02/01/18 13:18 her memory fluoxetine [From Prozac] Allergy Unknown Verified 01/31/19 21:39 codeine AdvReac Unknown NAUSEA/VOMI Unverified 01/31/19 21:39 TING morphine AdvReac Unknown nausea/vomi Verified 01/31/19 21:39 ting oxycodone AdvReac Unknown nausea/vomi Verified 10/19/17 20:43 ting Past Med/Surg History Medical History Epilepsy (Chronic) Hypothyroidism (Chronic) DM type 2 (diabetes mellitus, type 2) (Chronic) Carotid stenosis (Chronic) Cerebrovascular disease, arteriosclerotic, post-stroke (Chronic) Vertebral fracture, osteoporotic (Chronic) Migraine (Chronic) GERD (gastroesophageal reflux disease) (Chronic) CKD (chronic kidney disease), stage III (Chronic) Dyslipidemia (Chronic) Osteoarthritis (Chronic) Surgical History History of left-sided carotid endarterectomy (Chronic) History of bilateral knee replacement (Chronic) S/P cholecystectomy (Chronic) S/P rotator cuff repair (Chronic) Social History Feels Safe at Home: Yes Smoking Status: Never smoker Review of Systems See HPI for pertinent positives & negatives. and A total of 10 systems reviewed and were otherwise negative Physical Exam Vital Signs Vital Signs - 24 hr 01/31/19 20:37 01/31/19 21:18 01/31/19 22:05 Temperature 36.9 C Temperature Source Oral Sepsis Recent Fever Within 48 Hours No Sepsis Action Taken by Nursing No Action Required Pulse Rate 75 Pulse Rate [Bilateral Apical] 82 83 Respiratory Rate 18 18 20 Respiratory Effort / Characteristics Respiratory Depth Blood Pressure 135/65 Blood Pressure [Left Arm] 139/77 91/43 L Blood Pressure Mean 88 Blood Pressure Mean [Left Arm] 97 59 Pulse Oximetry 95 98 96 Oxygen Delivery Method Room Air Room Air Room Air 01/31/19 22:28 01/31/19 23:59 Temperature Temperature Source Sepsis Recent Fever Within 48 Hours Sepsis Action Taken by Nursing Pulse Rate Pulse Rate [Bilateral Apical] 84 79 Respiratory Rate 18 20 Respiratory Effort / Characteristics Non-Labored Respiratory Depth Normal Blood Pressure Blood Pressure [Left Arm] 120/58 L 119/58 L Blood Pressure Mean Blood Pressure Mean [Left Arm] 78 78 Pulse Oximetry 96 95 Oxygen Delivery Method Room Air Room Air GENERAL: Sitting up in bed, alert, well appearing, well nourished, no distress, non-toxic EYE EXAM: normal conjunctiva. OROPHARYNX: no exudate, no erythema, lips, buccal mucosa, and tongue normal and mucous membranes are moist NECK: supple, no nuchal rigidity, no adenopathy, non-tender LUNGS: Clear to auscultation. Normal chest wall mechanics HEART: no murmurs, S1 normal and S2 normal ABDOMEN: abdomen soft, non-tender, normo-active bowel, sounds, no masses, no rebound or guarding. BACK: Back is symmetrical on inspection and there is no deformity, no midline tenderness, no CVA tenderness. SKIN: no rashes and no bruising UPPER EXTREMITIES: upper extremities are grossly normal. LOWER EXTREMITIES: Erythema of the right lower extremity on the anterior dumas with mild clear drainage, tracts up to mid dumas on the right, tracts up to 2 in distally of the knee on the left which is erythematous and warm to touch. Pitting edema present as well. NEURO EXAM: Normal sensorium, cranial nerves II-XII grossly intact, normal speech, no gross weakness of arms, no gross weakness of legs. Course ED COURSE: Vital signs were reviewed and are within normal limits. The patients medical record was reviewed The above diagnostic studies were performed and reviewed. ED treatments and interventions as stated above. 2046: The patient was evaluated in room A11B. A complete history and physical examination was performed. 2234: I discussed my findings with the patient and she understands and agrees with the treatment plan. Based on the patients age, coexisting illnesses, exam and lab findings the decision to treat as an inpatient was made. The patient remained stable while under my care. The patient will be evaluated for further management. Administered Medications Discontinued Medications Cefazolin Sodium (Ancef 3000mg) 3,000 mg IV NOW STA Stop: 01/31/19 22:22 Last Admin: 01/31/19 22:58 Dose: 3,000 mg Documented by: [id number] Sodium Chloride (Nss 1000ml) 500 mls @ 999 mls/hr IV .Q31M ONE Stop: 01/31/19 22:56 Last Infusion: 01/31/19 23:09 Dose: 0 mls/hr Documented by: [id number] Admin: 01/31/19 22:32 Dose: 999 mls/hr Documented by: [id number] Medical Decision Making Differential Diagnosis Differential Diagnosis includes: cellulitis, abscess, osteomyelitis, MRSA infection, DVT, necrotizing fasciitis, dermatitis, drug eruption, as well as others were entertained. Medical Records Attestation: I reviewed the patient's medical records. Home Medications Current Medication List: was personally reviewed by me Laboratory Data Attestation: I reviewed the patient's lab results. Result diagrams: 01/31/19 20:52 01/31/19 20:59 Lab Results 01/31/19 01/31/19 01/31/19 Range/Units 20:52 20:59 20:59 WBC 8.20 (4.8-10.8) K/uL RBC 4.03 L (4.2-5.4) M/uL Hgb 13.0 (12.0-16.0) g/dL Hct 38.9 (37-47) % MCV 96.5 (80-100) fL MCH 32.3 (25-34) pg MCHC 33.4 (32-36) g/dL RDW Std Deviation 46.6 H (36.4-46.3) fL RDW Coeff of Tony 13.3 (11.5-14.5) % Plt Count 233 (130-400) K/uL MPV 9.2 (7.4-10.4) fL Immature Gran % (Auto) 0.2 % Neut % (Auto) 74.1 % Lymph % (Auto) 16.1 % [place] % (Auto) 7.0 % Eos % (Auto) 2.2 % Baso % (Auto) 0.4 % Immature Gran # (Auto) 0.02 (0.00-0.02) K/uL Neut # (Auto) 6.08 (1.4-6.5) K/uL Lymph # (Auto) 1.32 (1.2-3.4) K/uL [place] # (Auto) 0.57 (0.11-0.59) K/uL Eos # (Auto) 0.18 (0-0.5) K/uL Baso # (Auto) 0.03 (0-0.2) K/uL APTT 24.6 (21.0-31.0) Seconds PTT Ratio 0.9 Sodium 141 (136-145) mmol/L Potassium 3.4 L (3.5-5.1) mmol/L Chloride 106 (98-107) mmol/L Carbon Dioxide 30 (21-32) mmol/L Anion Gap 5.0 (3-11) BUN 24 H (7-18) mg/dl Creatinine 1.65 H (0.6-1.2) mg/dl Est Cr Clr Drug Dosing 31.5 ml/min Est GFR ( Amer) 35.6 Est GFR (Non-Af Amer) 30.7 BUN/Creatinine Ratio 14.4 (10-20) Glucose 280 H (70-99) mg/dl Calcium 8.8 (8.5-10.1) mg/dl Total Bilirubin 0.4 (0.2-1) mg/dl AST 19 (15-37) U/L ALT 11 L (12-78) U/L Alkaline Phosphatase 209 H (45-117) U/L Troponin I < 0.015 (0-0.045) ng/ml NT-Pro-B Natriuret Pep 173 (0-900) pg/ml Total Protein 7.1 (6.4-8.2) gm/dl Albumin 3.5 (3.4-5.0) gm/dl Globulin 3.6 (2.5-4.0) gm/dl Albumin/Globulin Ratio 1.0 (0.9-2) Imaging Data Radiologist's Impression: Radiology results as stated below per my review and the radiologist's interpretation: XR chest 1V portable HISTORY: Dyspnea COMPARISON: Chest 05/05/2017. FINDINGS: No pneumothorax. No pleural effusions. The heart remains borderline enlarged. There are few linear densities within the left mid to lower lung zone. Otherwise, lungs are clear. Old posttraumatic deformities within the bilateral shoulders with advanced degenerative change. IMPRESSION: A few linear densities within the left mid to lower lung zone. This favors atelectasis or scarring. Pneumonia could also have a similar appearance but is considered less likely. Electronically signed by: Golden Harris M.D. 01/31/2019 9:33 PM LEFT LOWER EXTREMITY VENOUS DOPPLER HISTORY: Left leg pain. Dyspnea COMPARISON STUDY: None. FINDINGS: There is normal compressibility, flow, and augmentation within the left lower extremity deep venous system. IMPRESSION: No DVT within the left lower extremity. Electronically signed by: Golden Harris M.D. 01/31/2019 10:01 PM ECG Data Attestation: I personally reviewed and interpreted this ECG as follows: Indication: other (LE edema) Rate (beats per minute): 69 Rhythm: sinus rhythm Findings: + other (poor baseline), + T-wave inversion (Anterolateral) and + left axis deviation Comparison ECG Date: from (05-May-2017) Change: no significant change Blood Pressure Blood Pressure Findings: Low blood pressure Blood Pressure Disposition: further management by hospitalist JERARDO Narrative Patient is a 73-year-old female who presents the ER for erythema and swelling of her bilateral lower extremities. She notes that she normally has some mild erythema in the right lower extremity but notes that today is much worse. The edema has not significantly change. The erythema of the left lower extremity she notes is new and getting worse and has been present for the past 5 days. Denies any history of CHF. Vitals are unremarkable initially which she did drop her pressure into the 90s. Labs show no significant leukocytosis or anemia. BMP with mild hypokalemia. Creatinine was slightly elevated at 1.65 consistent with the previous of about 1.7 upon review of the chart. No significant transaminitis. Bilirubin is unremarkable. Troponin is negative. BNP was negative. Doppler of the left lower extremity was negative. Chest x-ray was unremarkable. Patient was updated at bedside and discussed with the hospitalist. Patient was given IV Ancef and IV fluids and admitted to the hospital. Impression & Plan Cellulitis, Bilateral edema of lower extremity, Hypotension Discharge Plan Visit Data Chief Complaint: Swelling/Edema to Extremity ED Provider: Sudeep Collins Discharge Problem: Cellulitis, Bilateral edema of lower extremity, Hypotension Patient Disposition: Being Evaluated by Hospitalist Forms Stand Alone Forms: [email or web address] Prescriptions Prescriptions: No Action atorvastatin [Lipitor] 40 mg tablet 40 mg PO QPM RF: 0 metformin [Glucophage] 500 mg tablet 500 mg PO DAILY RF: 0 glipizide [Glucotrol XL] 10 mg tablet extended release 24hr 10 mg PO DAILY RF: 0 sulindac 150 mg tablet 150 mg PO DAILY RF: 0 clopidogrel [Plavix] 75 mg tablet 75 mg PO DAILY RF: 0 zonisamide [Zonegran] 100 mg capsule 200 mg PO BID RF: 0 hydrochlorothiazide 25 mg tablet 25 mg PO DAILY RF: 0 fluocinonide 0.05 % solution 1 applic topical UD RF: 0 lamotrigine [Lamictal] 100 mg tablet 100 mg PO BID RF: 0 levothyroxine [Synthroid] 112 mcg tablet 112 mcg PO DAILY RF: 0 Referrals Referrals: Hafsa Israel MD [Primary Care Provider] - Discharge Problem: Cellulitis Qualifiers: Site of cellulitis: extremity Site of cellulitis of extremity: lower extremity Laterality: left Qualified Code(s): L03.116 - Cellulitis of left lower limb Hypotension Qualifiers: Hypotension type: unspecified hypotension type Qualified Code(s): I95.9 - Hypotension, unspecified The scribe's documentation has been prepared under my direction and personally reviewed by me in its entirety. I confirm that the note above accurately reflects all work, treatment, procedures, and medical decision making performed by me.
[2019-02-01 01:04] LABS: Appearance Urine Clear (Clear); Bilirubin Urine Negative (Negative); Color Urine Yellow; Glucose Urine UA Negative (Negative); Ketones Urine Negative (Negative); Leukocyte Esterase Urine Negative (Negative); Nitrite Urine Negative (Negative); Protein Urine Negative (Negative); Specific Gravity Urine 1.018 (1.000-1.030); Urobilinogen Urine Negative (Negative); pH Urine 7.5 (4.5-7.5)
[2019-02-01] MEDS ORDERED: ONDANSETRON INJ 2 MG/ML 2 ML VIAL IV PRN (01:33)
[2019-02-01] MEDS ORDERED: POLYETHYLENE (MIRALAX) 17 GM PACK PO PRN (01:33)
[2019-02-01] MEDS ORDERED: SODIUM CHLORIDE 0.9% 1000ML 1,000 ML IV SCH (01:33)
[2019-02-01] MEDS ORDERED: ACETAMINOPHEN 325 MG TAB PO PRN (01:33)
[2019-02-01] MEDS ORDERED: VANCOMYCIN CONSULT ACTIVE PRN (01:33)
[2019-02-01] MEDS ORDERED: ALUMINUM/MAGNESIUM SUSP 30 ML UDC PO PRN (01:33)
[2019-02-01] MEDS ORDERED: PIPERACILL/TAZOBAC CONSULT ACTIVE PRN (01:33)
[2019-02-01] MEDS ORDERED: VANCOMYCIN HCL 1,750 MG in SODIUM CHLORIDE 0.9% 500 ML IV SCH (02:30)
[2019-02-01] MEDS ORDERED: PIPERACILLIN/TAZOBACTAM 3.375 GM in DEXTROSE 5% 100 ML IV ONE (02:30)
[2019-02-01] MEDS ORDERED: GLUCAGON FOR INJ 1 MG VIAL IM PRN (02:30)
[2019-02-01] MEDS ORDERED: DEXTROSE 50% 50 ML SYRINGE IV PRN (02:30)
[2019-02-01] MEDS ORDERED: GLUCOSE 40% GEL 15 GM TUBE PO PRN (02:30)
[2019-02-01] MEDS ORDERED: GLUCOSE 10 TABS/TUBE PO PRN (02:30)
[2019-02-01] MEDS ORDERED: CARBOHYDRATES FOR HYPOGLYCEMIA PO PRN (02:30)
--- NOTE | 2019-02-01 02:33 | Pharmacy Report ---
Pharmacy Abx Initial Consult - Date of Service February 01, 2019 - Pharmacy Dosing Scope Date of Consult: 02/01/19 Consultation requested by: Dr. Frankel Pharmacy is consulted to initiate VANCOMYCIN/ZOSYN IV dosing therapy, order appropriate labs and adjust drug dose/frequency. - Subjective The patient is a 73 year old F admitted on 02/01/19 00:03. - Objective Height: 5 ft 1 in Weight: 78.5 kg Vital Signs (Past 12hrs): Vital Signs Temp Pulse Pulse Resp BP BP Pulse Ox 02/01/19 01:51 36.7 C 76 16 120/79 98 02/01/19 00:55 67 18 140/74 97 01/31/19 23:59 79 20 119/58 L 95 01/31/19 22:28 84 18 120/58 L 96 01/31/19 22:05 83 20 91/43 L 96 01/31/19 21:18 82 18 139/77 98 01/31/19 20:37 36.9 C 75 18 135/65 95 Lab Results (24hrs): Laboratory Tests (24 Hours) 01/31/19 01/31/19 20:59 20:52 WBC 8.20 Neut # (Auto) 6.08 Creatinine 1.65 H Est Cr Clr Drug Dosing 31.5 - Assessment & Plan Assessment 73 year old F with h/o PAD, chronic venous stasis, CKD3. Admitted with b/l LE cellulitis, ordered VANCOMYCIN/ZOSYN. Plan VANCOMYCIN/ZOSYN for treatment of B/L LE CELLULITIS. Vancomycin IV * Estimated PK Parameters: Vd ~0.7 L/kg, Ck ~0.030 hr-1, t1/2 ~ 23hr * Loading dose: 1750mg (24 mg/kg) * Maintenance dose: 1000mg IV (14 mg/kg) every 24 hours * Goal trough level for CELLULITIS : 15 to 20 mcg/mL * Will order a trough level prior to 3rd or 4th dose, based on renal function. Piperacillin/tazobactam * 3.375g bolus administered over 30 minutes, then 3.375g IV extended infusion every 8 hours for CrCl greater than 20 mL/min. Pharmacy will continue to follow and will adjust dose/frequency as necessary. Thank you.
[2019-02-01] MEDS: [UNRECOGNIZED DRUG - REMARK] SCH ×2 (03:18→07:25)
[2019-02-01] MEDS: lamoTRIgine 100 MG TAB PO SCH ×2 (03:19→08:23)
[2019-02-01 06:15] LABS: Basophils # (auto) 0.02 K/uL (0-0.2); Basophils % (auto) 0.2 %; Eosinophils # (auto) 0.34 K/uL (0-0.5); Eosinophils % (auto) 3.7 %; Hematocrit (blood only) 36.7 % (37-47); Hemoglobin 12.2 g/dL (12.0-16.0); Immature Granulocytes # (auto) 0.03 K/uL (0.00-0.02); Immature Granulocytes % (auto) 0.3 %; Lymphocytes # (auto) 2.33 K/uL (1.2-3.4); Lymphocytes % (auto) 25.2 %; Mean Corpuscular Hemoglobin 31.9 pg (25-34); Mean Corpuscular Hgb Conc 33.2 g/dL (32-36); Mean Corpuscular Volume 96.1 fL (80-100); Mean Platelet Volume 9.2 fL (7.4-10.4); Monocytes # (auto) 0.75 K/uL (0.11-0.59); Monocytes % (auto) 8.1 %; Neutrophils # (auto) 5.78 K/uL (1.4-6.5); Neutrophils % (auto) 62.5 %; Platelet Count 215 K/uL (130-400); RDW Coefficient of Variation 13.4 % (11.5-14.5); RDW Standard Deviation 46.4 fL (36.4-46.3); Red Blood Count 3.82 M/uL (4.2-5.4); White Blood Count 9.25 K/uL (4.8-10.8)
[2019-02-01] MEDS ORDERED: LEVOTHYROXINE SODIUM 112 MCG TABLET PO SCH (06:30)
[2019-02-01 06:53] LABS: BUN Creatinine Ratio 14.3 (10-20); Calcium 7.9 mg/dl (8.5-10.1); Creatinine Clr Calc Pharmacy 34.2 ml/min; Est GFR (Non-African American) 37.1; Potassium 3.1 mmol/L (3.5-5.1)
--- NOTE | 2019-02-01 07:53 | Family Medicine Progress Note ---
Date of Service February 01, 2019 Assessment & Plan (1) Cellulitis: Ms. Magdaleno is a 73 year old female with a past medical history of chronic venous stasis, PAD, CVA without any deficits, DM2, HTN, CKDIII, b/l carotid stenosis s/p L CEA, generalized seizure disorder (no seizure since 2003), hypoth yroidism, OA s/p TKA presents with bilateral lower leg worsening erythema, and edema with oozing x 3 days. Cellulitis bilateral LEs: no systemic symptoms -Hx of PAD, venous stasis with worsening erythema and edema -No WBC elevation -BNP and troponin wnl -LLE venous doppler: No DVT -Received Ancef in ED -Started on Vanc and Zosyn -Continue to monitor closely CAD/HLD/HTN -Continue lipitor, plavix -Hold HCTZ in the setting of mild hypotension - Started on IVFs NS at 60cc/hr and received 500cc IVF bolus in ED DM -Hold glipizide and metformin in the setting of worsening renal function -Started on SSI -ACHS BSG checks Hx of CKDIII -BUN/Cr 24/1.65 improved from 1.76 yesterday -Pt somewhat hypovolemic and started on IVFs at 60cc/hr -Monitor BMP Generalized Seizure disorder -Continue home lamictal and zonegran Hypothyroidism -Continue home synthroid Diet: DM2 VTE prop: Heparin Code: DNR/DNI Dispo: Med/surg telemetry (2) Epilepsy: (3) Hypothyroidism: (4) DM type 2 (diabetes mellitus, type 2): (5) Carotid stenosis: (6) Cerebrovascular disease, arteriosclerotic, post-stroke: (7) GERD (gastroesophageal reflux disease): (8) CKD (chronic kidney disease), stage III: (9) Osteoarthritis: (10) Dyslipidemia: (11) History of bilateral knee replacement: Subjective See Dr. Frankel's H&P for details on history and physical examination. Physical Exam Vital Signs (Past 24 Hours): Last Vital Signs Temp 36.7 C 02/01/19 01:51 Pulse 76 02/01/19 01:51 Resp 16 02/01/19 01:51 BP 120/79 02/01/19 01:51 Pulse Ox 98 02/01/19 01:51 Resident Activity Tracking Resident Involvement: Resident Care Provided Care Provided: Adult Hospital Medicine (1) Cellulitis Laterality: left Site of cellulitis: extremity Site of cellulitis of extremity: lower extremity Qualified Code(s): L03.116 - Cellulitis of left lower limb
[2019-02-01] MEDS ORDERED: POTASSIUM CHLORIDE 20 MEQ TABCR PO STA (07:55)
[2019-02-01 07:57] LABS: Prothrombin Time 10.3 Seconds (9.0-12.0)
[2019-02-01] MEDS ORDERED: PIPERACILLIN/TAZOBACTAM 3.375 GM in DEXTROSE 5% 100 ML IV SCH (08:00)
[2019-02-01] MEDS: INSULIN ASPART 100 UNITS/ML 3 ML PEN SC SCH ×2 (08:22→12:09)
[2019-02-01] MEDS ORDERED: CLOPIDOGREL BISULFATE 75 MG TAB PO SCH (09:00)
[2019-02-01] MEDS ORDERED: HEPARIN SOD 5,000 UNIT/0.5 ML VIAL SQ SCH (09:00)
--- NOTE | 2019-02-01 13:11 | Discharge Summary ---
Date of Service February 01, 2019 Admission HPI Per Admitting Provider 73yoF with hx of chronic venous stasis, PAD, CVA without any deficits, DM2, HTN, CKDIII, b/l carotid stenosis s/p L CEA, generalized seizure disorder (no seizure since 2003), hypothyroidism, OA s/p TKA presents with bilateral lower leg worsening erythema, and edema with oozing x 3 days. Per patient, her legs were looking worse on wednesday. Legs started oozing for the first time and she noticed worsening erythema and edema of her legs. No significant pain reported. She went to see PCP yesterday and saw a PA who did not think she needed abx, considered ordering Lasix but did not order it, and ordered labs. She waited to hear back about labs today but was never called back. She then proceeded to come to the ED. Pt has compression stockings but has trouble putting them on so she does not wear them. A/w mild chills Denies any fever, sob, cp, n/v, abdominal pain, d/c, hematochezia, melena, dysuria, hematuria Admission Exam Per Admitting Provider General: In NAD Neuro: A&O x 4 CV: RRR, no m/r/g Pulm: Bilateral posterior mid and lower lung field mild crackles appreciated, equal breath sounds bilaterally, on RA GI: +BS, non-distended, NTTP in all quadrants, epigastric region abdominal hernia repair mesh palpable extremities: bilateral pretibial 2+ edema with increased warmth and intense erythema of bilateral legs (mainly over anterior aspect of legs but extending some to calves as well; L leg extends to knee and R leg to mid leg region) Principal Diagnosis Venous Stasis Discharge Exam Constitutional WD/WN, vitals as above Respiratory normal respiratory effort, lungs clear to auscultation Cardiovascular Rate/Rhythm: regular rate and regular rhythm Extremities: no calf tenderness Gastrointestinal (Abdomen) Inspection/Auscultation: abdomen normal to inspection Percussion/Palpation: abdomen soft; abdomen nontender and no guarding Skin b/l erythema of lower extremities, extending up to knee. Lower legs are not tender to touch, or warm to touch. Multiple, small breaks in skin & areas of slightly increased erythema noted over b/l legs. No seeping noted. Discharge Data Allergies Allergy/AdvReac Type Severity Reaction Status Date / Time omeprazole Allergy Severe throat Verified 10/19/17 20:43 swelling alendronate sodium Allergy Unknown GI SYMPTOMS Verified 02/01/18 13:18 oxytocin Allergy Unknown Nausea and Verified 01/31/19 21:39 vomiting pioglitazone Allergy Unknown Edema BLE Verified 02/01/18 13:18 prednisone Allergy Unknown Nausea and Verified 02/01/18 13:18 vomiting risedronate sodium Allergy Unknown Headache Verified 02/01/18 13:18 and weakness sitagliptin Allergy Unknown Itching Verified 02/01/18 13:18 valproic acid Allergy Unknown Affected Verified 02/01/18 13:18 her memory fluoxetine [From Prozac] Allergy Unknown Verified 01/31/19 21:39 codeine AdvReac Unknown NAUSEA/VOMI Unverified 01/31/19 21:39 TING morphine AdvReac Unknown nausea/vomi Verified 01/31/19 21:39 ting oxycodone AdvReac Unknown nausea/vomi Verified 10/19/17 20:43 ting Consultations 01/31/19 22:26 ED Decision to Admit Stat Ordered Studies 01/31/19 20:52 US venous doppler LE LT Stat Hospital Course (1) Cellulitis: Ms. Magdaleno is a 73 year old female with a past medical history of chronic venous stasis, PAD, CVA without any deficits, DM2, HTN, CKDIII, b/l carotid stenosis s/p L CEA, generalized seizure disorder (no seizure since 2003), hypothyroidism, OA s/p TKA presents with bilateral lower leg worsening erythema, and edema with oozing x 3 days. Venous Stasis -pt has hx of venous stasis -No WBC elevation, afebrile. Legs are not tender to palpation or warm to touch -LLE venous doppler: No DVT -Received Ancef in ED and zosyn/vanc on admission -examination and lab findings more consistent w/venous stasis as opposed to b/l cellulitis -will treat w/keflex 500mg TID x5 days, moreso as prophylaxis given small skin breaks over b/l LE -education provided to family regarding difference between infection and venous stasis -recommended wound care clinic, ambulation & compression stockings Hypercholesterolemia -family wants to discuss discontinuing Ms. Magdaleno's lipitor -> outpt f/u (2) Epilepsy: (3) Hypothyroidism: (4) DM type 2 (diabetes mellitus, type 2): (5) Carotid stenosis: (6) Cerebrovascular disease, arteriosclerotic, post-stroke: (7) GERD (gastroesophageal reflux disease): (8) CKD (chronic kidney disease), stage III: (9) Osteoarthritis: (10) Dyslipidemia: (11) History of bilateral knee replacement: Total Time Total Time Spent Total Time Spent (In Minutes): >30 Discharge Plan Discharge Items Patient Disposition: Home - Self-Care Reason For Visit: BILATERAL LE CELLULITIS Discharge Diagnosis: b/l venous stasis Discharge Goals: Decrease discomfort, Improve function and Learn about illness Activity: Resume your previous activity Non-emergency contact: Primary Care Provider Call non-emergency contact if: you have any medication questions, your symptoms worsen and your temperature is above 101 Follow-up/Referrals: [facility] [Other] - 02/06/19 10:10 am (Please, follow up at [facility] on WednesdayFebruary 06 at 10:10 am. *This office is located at [address] in [place]. If you need to change this appointment, call the office at [phone].) Hafsa Israel MD [Primary Care Provider] - 02/08/19 11:00 am (Please, follow up at Dr. Israel's office with her property assistant, Deyanira Oliveros, on WednesdayFebruary 08 at 11:00 am. *If you need to change this appointment, call the office at [phone].) Diet: Carb Consistent or DM2 Addtl Provider Instructions: Ms. Magdaleno, you were admitted to [facility] due to redness and swelling in your legs. This is caused by venous stasis, which means that the blood flow in your veins is not as effective as it should be, and therefore blood pools in the veins in your legs, causing redness and swelling of your legs. This is not cellulitis. We will be treating you with an antibiotic to prevent an infection from occurring, and this antibiotic is called Keflex. Please take 1 pill three times a day for the next 5 days. The treatment for venous stasis is movement, namely walking around, and wearing compression stockings. We strongly encourage both of these in order to help reduce the swelling in your legs. You can also elevate your legs when watching TV or lying down, as this will help with the swelling as well. Unfortunately, Lasix does not help with this type of leg swelling, and we do not recommend that you use it. Prescriptions: New cephalexin [Keflex] 500 mg capsule 500 mg PO Q8H 5 Days Qty: 15 RF: 0 Continued atorvastatin [Lipitor] 40 mg tablet 40 mg PO QPM RF: 0 metformin [Glucophage] 500 mg tablet 500 mg PO DAILY RF: 0 glipizide [Glucotrol XL] 10 mg tablet extended release 24hr 10 mg PO DAILY RF: 0 sulindac 150 mg tablet 150 mg PO DAILY RF: 0 clopidogrel [Plavix] 75 mg tablet 75 mg PO DAILY RF: 0 zonisamide [Zonegran] 100 mg capsule 200 mg PO BID RF: 0 hydrochlorothiazide 25 mg tablet 25 mg PO DAILY RF: 0 fluocinonide 0.05 % solution 1 applic topical UD RF: 0 lamotrigine [Lamictal] 100 mg tablet 100 mg PO BID RF: 0 levothyroxine [Synthroid] 112 mcg tablet 112 mcg PO DAILY RF: 0 Stand-Alone Forms: [facility] Discharge Orders: Discharge Order (Routine); Ordered 02/01/19 Ordered By: Jill Ang Admission Data Admit Date/Time: 02/01/19 00:03 Attending Provider: Sudeep Barreto Admit Provider: Rio Hobson Primary Care Provider: Hafsa Israel Other Providers: Rio Hobson Service: Telemetry Medical Other Interventions: Discharge Summary Assessment (RN) Last Done: 02/01/19 14:12 DC Date/Time DO NOT enter until pt leaves facility: 02/01/19 16:07 Supervising Physician Co-Signing Physician Notes I personally examined the patient and verified all mesa points of history and exam, discussed case, and agree with decision making with Dr Ang. Legs are red and swollen. No fever/chills/sweats. Redness not tracking. Legs are seeping somewhat. She adamantly refuses any compression, and her daughter seems to loosely insinuate that she has not been moving around much lately. Vitals noted, in general she is awake and alert pleasant no distress. HEENT normocephalic atraumatic mucous membranes are moist. Extremities show bilateral lower extremity redness only below the knees, it fades more diffusely at the margins rather than being dense. There are a few shallow open ulcerations with thin serous discharge but no exudate. Fairly nontender. Bilateral lower extremity erythemaseems almost certainly related to venous stasis worsening. She has no fever/chills/sweats. She has no leukocytosis. Her CRP is essentially undetectable. We had an extensive discussion about venous stasis and how it looks/changes/the pathophysiology/the management. She adamantly refuses compression, and noted this will significantly adversely impact the ability to manage the swelling. I did discuss that mobility and muscle contraction would help a good deal, and if she refuses compression at least elevation could help as well. She certainly is not showing anything fitting with true cellulitis, she is a little bit of mild erythema around a few open ulcers, and given that these may heal better with some gram-positive coverage certainly it is reasonable to discharge her on Keflex, but she c ertainly does not appear to need broad or extensive antibiotic coverage. Stable for home, outpatient follow-up. No significant role for diuretics in this either. Ideally she would follow with the wound clinic but she seems to be declining this. Daughter expressed very good understanding of our discussion on venous stasis. Resident Activity Tracking Resident Involvement: Resident Care Provided Care Provided: Adult Hospital Medicine
[2019-02-01] MEDS ORDERED: ATORVASTATIN 40 MG TAB PO SCH (21:00)
[2019-02-02] MEDS ORDERED: VANCOMYCIN HCL 1,000 MG in SODIUM CHLORIDE 0.9% 250 ML IV SCH (02:00)
== END 2019-02-01 16:07 | disposition home or self-care (01) | DRG 603 ==
LOC: ED 20:21 → 2W 02-01 00:03 → SUATTDRO 02-01 00:03 → 2W 02-01 00:56
DX: I25.10 Atherosclerotic heart disease of native coronary artery without angina pectoris; Z96.60 Presence of unspecified orthopedic joint implant; L03.116 Cellulitis of left lower limb; E11.9 Type 2 diabetes mellitus without complications; Z88.5 Allergy status to narcotic agent; Z88.8 Allergy status to other drugs, medicaments and biological substances; E03.9 Hypothyroidism, unspecified; Z66 Do not resuscitate; I12.9 Hypertensive chronic kidney disease with stage 1 through stage 4 chronic kidney disease, or unspecified chronic kidney disease; N18.3 Chronic kidney disease, stage 3 (moderate); I65.29 Occlusion and stenosis of unspecified carotid artery; Z79.84 Long term (current) use of oral hypoglycemic drugs; K21.9 Gastro-esophageal reflux disease without esophagitis; E78.5 Hyperlipidemia, unspecified; G40.909 Epilepsy, unspecified, not intractable, without status epilepticus; I87.8 Other specified disorders of veins

== ENCOUNTER 2020-11-10 12:24 | Inpatient (IN) ==
[2020-11-10] MEDS ORDERED: SODIUM CHLORIDE 0.9% 1000ML 1,000 ML IV ONE (12:55)
[2020-11-10] MEDS ORDERED: ACETAMINOPHEN 1,000 MG/100 ML VIAL IV STA (12:58)
[2020-11-10 13:37] LABS: Hematocrit (blood only) 41.5 % (37-47); Hemoglobin 13.3 g/dL (12.0-16.0); Immature Granulocytes # (auto) 0.03 K/uL (0.00-0.02); Immature Granulocytes % (auto) 0.2 %; Lymphocytes # (auto) 0.44 K/uL (1.2-3.4); Lymphocytes % (auto) 3.6 %; Mean Corpuscular Hemoglobin 32.4 pg (25-34); Mean Corpuscular Volume 101.2 fL (80-100); Mean Platelet Volume 10.1 fL (7.4-10.4); Monocytes % (auto) 4.9 %; Neutrophils # (auto) 11.15 K/uL (1.4-6.5); Neutrophils % (auto) 91.3 %; Platelet Count 300 K/uL (130-400); RDW Coefficient of Variation 13.2 % (11.5-14.5); RDW Standard Deviation 49.1 fL (36.4-46.3); White Blood Count 12.22 K/uL (4.8-10.8)
[2020-11-10 13:48] LABS: Partial Thromboplastin Ratio 0.9; Partial Thromboplastin Time 23.8 Seconds (21.0-31.0); Prothrombin Time 10.2 Seconds (9.0-12.0)
[2020-11-10 14:12] LABS: Alanine Aminotransferase 19 U/L (12-78); Albumin Globulin Ratio 0.9 (0.9-2); Albumin Level 3.3 gm/dl (3.4-5.0); Alkaline Phosphatase 235 U/L (45-117); Aspartate Aminotransferase 53 U/L (15-37); BUN Creatinine Ratio 19.8 (10-20); Bilirubin,Total 0.6 mg/dl (0.2-1); Blood Urea Nitrogen 39 mg/dl (7-18); Calcium 8.9 mg/dl (8.5-10.1); Carbon Dioxide 22 mmol/L (21-32); Chloride 99 mmol/L (98-107); Creatine Kinase 792 U/L (26-192); Creatinine Clr Calc Pharmacy 22.8 ml/min; Est GFR (African American) 28.5; Est GFR (Non-African American) 24.6; Globulin 3.5 gm/dl (2.5-4.0); Glucose 757 mg/dl (70-99); Lipase 95 U/L (73-393); Magnesium 2.1 mg/dl (1.8-2.4); Phosphorus 4.4 mg/dl (2.5-4.9); Potassium 4.4 mmol/L (3.5-5.1); Sodium 137 mmol/L (136-145); Total Protein 6.8 gm/dl (6.4-8.2); Troponin I < 0.015 ng/ml (0-0.045)
--- NOTE | 2020-11-10 14:24 | CT Scan Report ---
CT head/brain wo con CLINICAL HISTORY: fall, weakness COMPARISON STUDY: 06/11/2020 TECHNIQUE: Axial CT of the brain is performed from the vertex to the skull base. IV contrast was not administered for this examination. A dose lowering technique was utilized adhering to the principles of ALARA. CT DOSE: 614.27 mGy.cm FINDINGS: No intra or extra-axial mass lesions are visualized. There is no CT evidence of acute cortical infarc tion. There is no evidence of midline shift. There is no acute hemorrhage. No calvarial fractures ar e visualized. There are patchy white matter hypodensities likely on a small vessel basis. There is an old left post erior parietal/occipital infarct. There is cerebellar atrophy. There is no evidence of pathologic ventricular dilatation. There is no evidence of acute sinusitis There is incomplete bony fusion of the anterior C1 arch. IMPRESSION: No acute intracranial findings ACT 112: Negative or not required by law. Electronically signed by: William Swan M.D. 11/10/2020 2:23 PM
--- NOTE | 2020-11-10 14:38 | XRay Report ---
XR hips NIKHIL 1v w pelvis CLINICAL HISTORY: Pain status post trauma COMPARISON: 04/03/2020 DISCUSSION: The bones are osteopenic. There are postsurgical changes of a total right hip arthroplast y. No acute fractures or dislocations are visualized. Degenerative changes are present in the left hi p. There is no SI joint diastases. There is no symphysis diastases. IMPRESSION: No acute fractures or dislocations identified. ACT 112: Negative or not required by law. Electronically signed by: William Swan M.D. 11/10/2020 2:37 PM
--- NOTE | 2020-11-10 14:39 | XRay Report ---
XR chest 1V portable CLINICAL HISTORY: Atypical chest pain COMPARISON STUDY: 04/03/2020 FINDINGS: The cardiac and mediastinal contours remain stable. There is no failure. There is no focal pulmonary consolidation. There is an area of linear subsegmental atelectasis/scarring within the left midlung zone. There are no pleural effusions. There are old bilateral proximal humeral deformities.[ IMPRESSION: No active disease in the chest. ACT 112: Negative or not required by law. Electronically signed by: William Swan M.D. 11/10/2020 2:37 PM
[2020-11-10 14:56] LABS: Beta-Hydroxybutyrate 49.86 mg/dl (0.2-2.81)
[2020-11-10] MEDS ORDERED: NovoLIN-R INSULIN PER UNIT CHARGE IV STA (15:31)
[2020-11-10] MEDS ORDERED: DEXTROSE 50% 50 ML SYRINGE IV PRN (15:40)
[2020-11-10] MEDS ORDERED: GLUCAGON FOR INJ 1 MG VIAL SQ PRN (15:40)
[2020-11-10] MEDS ORDERED: GLUCOSE 40% GEL 15 GM TUBE PO PRN (15:40)
[2020-11-10] MEDS ORDERED: CARBOHYDRATES FOR HYPOGLYCEMIA PO PRN (15:40)
[2020-11-10] MEDS ORDERED: GLUCOSE 10 TABS/TUBE PO PRN (15:40)
[2020-11-10] MEDS ORDERED: INSULIN GLARGINE SOLOSTAR 100 UNITS/ML 3 ML PEN SC STA (15:41)
[2020-11-10 16:04] LABS: Appearance Urine Clear (Clear); Bacteria Urine Automated Negative (Negative); Bilirubin Urine Negative (Negative); Blood Urine Trace (Negative); Color Urine Yellow; Epithelial Cell Urine Auto >30 /lpf (0-5); Glucose Urine UA 3+ (Negative); Ketones Urine 2+ (Negative); Leukocyte Esterase Urine Negative (Negative); Nitrite Urine Negative (Negative); Protein Urine 1+ (Negative); RBC Urine Automated 0-4 /hpf (0-4); Specific Gravity Urine 1.034 (1.000-1.030); Urobilinogen Urine Negative (Negative)
[2020-11-10] MEDS ORDERED: INSULIN ASPART 100 UNITS/ML 3 ML PEN SC SCH (16:30)
[2020-11-10] MEDS ORDERED: PHARMACY GLYCEMIC MGMT CONSULT PRN (16:43)
[2020-11-10] MEDS ORDERED: DKA GOAL RANGE 150-250 mg/dl ONE (16:45)
[2020-11-10] MEDS ORDERED: ED DKA INSULIN DRIP ONE (16:45)
--- NOTE | 2020-11-10 16:47 | History & Physical Report ---
Date of Service November 10, 2020 Assessment & Plan (1) Fall: Due to the patient's fall she will be admitted to the hospital and we will proceed as follows: We will obtain physical and Occupational Therapy consultations as well as involve discharge planning to ensure safe disposition. Although there are no fractures noted on today's imaging she does have pain with palpation of her right hip. If this persists additional imaging modalities will be pursued. It is noted to have elevated CK and alkaline phosphatase levels. I do suspect these are merely from her recent fall and the fact that she was lying on the floor for nearly 2 days. (2) Hyperglycemia: I have discussed the hyperglycemia with the patient and she notes that she has been compliant with her medicines. I discussed the case with pharmacy in the emergency department and they re commended a glycemic management consultation. This has been ordered. They feel that due to the patient's increased anion gap and elevated glucose levels and insulin drip would be indicated at the present time with adjustments to be made based on ensuing lab values. (3) Chronic kidney disease: Patient's renal function is at baseline. We will follow serial labs and make adjustments as needed. We will utilize Lovenox for DVT prevention with adjustments made for renal function I did discuss CODE STATUS with the patient and she notes the event of card iopulmonary arrest she wishes to be a level 1 full code The above plan was discussed with the patient's daughter via phone and she is in agreement. History of Present Illness Chief Complaint: I fell Primary Care Provider: Hafsa Israel MD 75-year-old female who resides in an apartment by herself. Patient notes that she fell 2 days ago and was subsequently found by her aide this morning. Patient says the reason she fell if she slipped on water. When questioned about her fall she did not have any preceding chest pain or shortness of breath she did not have any loss of consciousness and denies striking her head. Because of her fall she presented to the emergency department. In the emergency department she underwent a chest x-ray that was negative for CHF or pneumonia. She had bilateral hip x-rays checked that were negative for fractures. She also had a CT scan of her head that was negative for acute intracranial process. Labs revealed a CBC that had a white blood cell count of 12.0 hemoglobin hematocrit platelet count were all noted to be within the normal range. Chemistry profile showed sodium and potassium were normal. BUN and creatinine were 39 and 1.9. Of note her baseline creatinine typically runs 1.7- 2.0. She had elevated CK level of 792 and a slightly elevated alkaline phosphatase level. Urinalysis was negative for infection. The patient was noted to have an elevated glucose level of greater than 600. For this she did receive 7 units of Lantus insulin along with 10 units of Novolin R insulin. It is also noteworthy to mention that this patient had a Guidry catheter placed in the emergency department. Patient notes over the past several weeks she has been feeling well. She denies any fevers shakes or chills. She denies any chest pain or shortness of breath. She claims to be eating well without nausea vomiting or diarrhea. We have been asked to see the patient for admission and she was noted to be in no distress at the time of my interview. Allergies Allergy/AdvReac Type Severity Reaction Status Date / Time omeprazole Allergy Severe throat Verified 11/10/20 14:06 swelling alendronate sodium Allergy Unknown GI SYMPTOMS Verified 11/10/20 14:06 oxytocin Allergy Unknown Nausea and Verified 11/10/20 14:06 vomiting pioglitazone Allergy Unknown Edema BLE Verified 11/10/20 14:06 prednisone Allergy Unknown Nausea and Verified 11/10/20 14:06 vomiting risedronate sodium Allergy Unknown Headache Verified 11/10/20 14:06 and weakness sitagliptin Allergy Unknown Itching Verified 11/10/20 14:06 valproic acid Allergy Unknown Affected Verified 11/10/20 14:06 her memory divalproex sodium Allergy Verified 11/10/20 14:06 [From Depakote] fluoxetine [From Prozac] Allergy Unknown Verified 11/10/20 14:06 codeine AdvReac Unknown NAUSEA/VOMI Verified 11/10/20 14:06 TING morphine AdvReac Unknown nausea/vomi Verified 11/10/20 14:06 ting oxycodone AdvReac Unknown nausea/vomi Verified 11/10/20 14:06 ting Home Medications Medication Instructions Recorded Confirmed Type calcium carbonate 600 mg (1,500 1 tab PO QAM tab 05/01/19 11/10/20 History mg)-vitamin D3 200 unit tablet OneTouch Verio Flex Start #1 ea NS 05/03/19 11/06/20 Rx acetaminophen [Tylenol Extra 500 mg PO QAM 04/03/20 11/10/20 History Strength] hydrochlorothiazide 25 mg tablet 25 mg PO QAM #90 tab 05/02/20 11/10/20 Rx metformin 500 mg tablet 500 mg PO QAM #90 tab 05/02/20 11/10/20 Rx Shower Chair #1 ea 06/03/20 11/06/20 Rx Zonegran 100 mg capsule 200 mg PO BID 90 Days #360 cap NS 07/23/20 11/10/20 Rx Lamictal 100 mg tablet 100 mg PO BID 90 Days #180 tab NS 09/11/20 11/10/20 Rx levothyroxine 112 mcg tablet 112 mcg PO QAM #90 tab 11/06/20 11/10/20 Rx Past Med/Surg History Medical History Bilateral edema of lower extremity Carotid stenosis Cellulitis Cerebrovascular disease, arteriosclerotic, post-stroke CKD (chronic kidney disease), stage III DM type 2 (diabetes mellitus, type 2) Dyslipidemia Encounter for wound re-check Epilepsy GERD (gastroesophageal reflux disease) Hypotension Hypothyroidism Intertrochanteric fracture of right hip (07/18/14) Migraine Osteoarthritis Screening for skin condition Venous stasis ulcer of right lower extremity Vertebral fracture, osteoporotic Surgical History H/O total knee replacement History of bilateral knee replacement History of left-sided carotid endarterectomy S/P cholecystectomy S/P rotator cuff repair Family History Mother Transitional cell carcinoma of bladder Diabetes Cardiac disorder Hypertension Ovarian cancer Grandmother Cancer Uncle Cancer Father Cardiac disorder Hypertension Asthma Social History Smoking Status: Unknown if ever smoked Hx Alcohol Use: No Hx Substance Use: No Preferred Language: Romansh Communication Ability: Effective 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 Beliefs That Will Affect Care: None marital status: Current Living Situation: Alone How many Children do You have: 2 Feels Safe at Home: Yes Safety Concerns: Feels Safe At This Time Assistive Devices: None Assistive Devices Comment: scooter Review of Systems Constitutional: no fever, no chills, no fatigue, no anorexia and no weight loss Eyes: no diplopia Ear, Nose, Mouth, Throat: no ear pain Respiratory: no cough and no dyspnea Cardiovascular: no chest pain and no syncope Gastrointestinal: no abdominal pain, no nausea and no vomiting Genitourinary: no dysuria Musculoskeletal: + joint pain (Right hip); no back pain Integumentary: no rash Neurologic: + gait abnormality and + falls; no localized weakness Physical Exam Physical Exam: No noted head trauma Constitutional: well developed and well nourished; no acute distress Eyes: no conjunctival abnormality ENMT: Ears: no hearing impairment Neck: trachea midline Respiratory: normal respiratory effort; no respiratory distress and no labored breathing Cardiovascular: Rate/Rhythm: regular rate and regular rhythm Gastrointestinal (Abdomen): Inspection/Auscultation: abdomen not distended Percussion/Palpation: abdomen soft; abdomen nontender No pain with palpation Musculoskeletal: No calf tenderness or foot wounds. Patient had a well-healed scar over her right hip from a previous hip surgery. Pain noted with palpation of the right hip Skin: no rashes, warm and dry Neurologic: CN's II-XI intact bilaterally and moves all extremities Results & Data Results & Data ([facility]) Vital Signs (Past 12 Hours) Vital Signs Temp Pulse Resp BP Pulse Ox 11/10/20 15:30 92 H 13 161/83 H 98 11/10/20 15:00 99 H 15 11/10/20 14:30 99 H 15 134/93 11/10/20 13:37 97 H 17 159/87 H 97 11/10/20 13:32 96 11/10/20 13:30 87 15 95 11/10/20 13:00 97 H 15 95 11/10/20 12:51 102 H 22 99 11/10/20 12:37 36.8 C 102 H 18 160/66 H 98 11/10/20 12:30 103 H 18 160/66 H 99 Supervising Physician Co-Signing Physician Notes I personally saw and examined the patient. I verified all mesa points and agree with SANJUANITA Ward with the following exceptions and/or additions: 75 year old female fell on Wednesday when she slipped on urine and found by aide on ground since then. She reports her PCP stopped her glipizide, does not measure her glucose measurements at home. Urinary frequency recently (although unclear on exact timeline), no dysuria. O/E A&Ox3, Chest CTAB, HS 1+2, no murmurs, Abdo SNT, BS +ve A/P Fall - mechanical secondary to urine on the floow due to urinary frequency as below. Hyperglycemia without change in mental state - Suspect secondary to stopping her glipizide although unclear when this was. Agree with insulin drip at this time although no altered mental state to suspect HHS. Urinary frequency and dehydration - secondary to osmotic diuresis in setting of hyperglycemia. Does not appear to be a urinary tract infection. PG Care Time/CCT Total # of Minutes Spent Total Time Spent with Patient: Total time spent is greater than 50% in coordination of care (as documented) at patient's floor/unit and/or counseling patient: Coding Level of Care Code 47970 Initial Inpt Care Lvl 3 Diagnoses Fall W19.XXXA Encounter type: initial encounter Hyperglycemia R73.9 Chronic kidney disease N18.9 (1) Fall Encounter type: initial encounter Qualified Code(s): W19.XXXA - Unspecified fall, initial encounter
[2020-11-10] MEDS: INSULIN REGULAR 250 UNITS in SODIUM CHLORIDE 0.9% 247.5 ML IV SCH (17:28)
[2020-11-10] MEDS ORDERED: PENDING 1/2NSS+20mEq KCL IVF SCH (17:30)
--- NOTE | 2020-11-10 17:46 | Emergency Department Note ---
Impression & Plan Hyperosmolar hyperglycemic state (HHS), Rhabdomyolysis, Fall from slipping on wet surface, CKD (chronic kidney disease), stage III ED Provider Note NAME: ELIZABETH ISSA AGE: 75 SEX: F ARRIVES VIA: Ambulance INFORMANT: Patient, ED PROVIDER(S): Joshua Casey MD CHIEF COMPLAINT: Fall, weakness. PLAN: Disposition: Admit MEDICAL DECISION MAKING: The patient is a pleasant 75-year-old woman with a past medical history of CVA, CKD, epilepsy, diabetes, GERD, migraines, arthritis, dyslipidemia who presents emergency department after being found down in her home by her visiting nurse where the patient reports that she fell Wednesday evening when attempting to make it to the bathroom but urinated herself and slipped in the bathroom onto her back. She denies any head strike or loss of consciousness. She reports she was unable to get up and despite banging on the lovelace no one was able to hear her and so she waited until today where she was found. She reports she did not eat or drink anything until this morning when she was found. Prior to this she denies any recent fevers, chills, cough, congestion, nausea, vomiting, diarrhea, urinary symptoms. On arrival the patient is fatigued appearing but in no acute distress, afebrile with stable vital signs. She appears clinically dry. Abdomen is benign. She does report some discomfort of bilateral hips. There is some redness to bilateral lateral hips left greater than right likely related to her prolonged downtime. Compartments are soft however. She is able to move both hips symmetrically with mild discomfort. Pelvis is grossly stable. EKG with nonspecific ST abnormalities with PACs no overt ST elevation. Chest x- ray negative for acute cardiopulmonary process. Plain films of bilateral hips and pelvis negative for acute fracture or dislocation. CT of the head negative for acute process. WBC 12.2, nonspecific. H/H and platelets within normal limits. Chemistry without metabolic acidosis with bicarb 22 although anion gap slightly elevated at 16. Creatinine 1.96 within patient's prior range of values in the setting of history of CKD. Blood glucose 757 likely related to patient's prolonged downtime with no hydration and not taking her medications. Beta hydroxybutyrate 49. osmolality is 347 consistent with the patient's clinically dry appearance and likely reflecting possible early HHS though the patient is mentating normally at this time. Electrolytes without significant abnormalities. LFTs without significant abnormalities. CPK 792 consistent with mild rhabdomyolysis in the setting of her prolonged downtime. UA without convincing evidence of infection. Upon reevaluation the patient was feeling some improvement after initial IV fluid hydration. However her blood glucose still was elevated above 600. She is agreeable to be admitted per recommendation for additional hydration and treatment of her hyperglycemia. Case was discussed [place] [facility] [place], [facility] [place], who will evaluate the patient for admission. Insulin drip per admitting team. Triage Nursing notes reviewed and agree them. Prior medical records reviewed Vital Signs: reviewed and remarkable for no significant abnormalities Differential diagnosis: Infection, dehydration, metabolic abnormality, hypo/hyperglycemia, electrolyte disturbance, anemia, hypoxia, cardiac sources, intracerebral event, toxicologic, neurologic, as well as other pathologies. ER treatment provided: See below. Diagnostics interpreted by me: ECG: Sinus rhythm with PACs with aberrant conduction, 97 bpm, incomplete right bundle branch block, LVH, ST and T wave abnormalities without overt ST elevation, QTc 467, QRS 96. Cardiac Monitoring: An order for continuous cardiac monitoring was placed and demonstrated Sinus rhythm with PACs with aberrant conduction, 97 bpm. Laboratory studies: See below Imaging studies: XR chest 1V portable CLINICAL HISTORY: Atypical chest pain COMPARISON STUDY: 04/03/2020 FINDINGS: The cardiac and mediastinal contours remain stable. There is no failure. There is no focal pulmonary consolidation. There is an area of linear subsegmental atelectasis/scarring within the left midlung zone. There are no pleural effusions. There are old bilateral proximal humeral deformities.[ IMPRESSION: No active disease in the chest. XR hips NIKHIL 1v w pelvis CLINICAL HISTORY: Pain status post trauma COMPARISON: 04/03/2020 DISCUSSION: The bones are osteopenic. There are postsurgical changes of a total right hip arthroplasty. No acute fractures or dislocations are visualized. Degenerative changes are present in the left hip. There is no SI joint diastases. There is no symphysis diastases. IMPRESSION: No acute fractures or dislocations identified. ACT 112: Negative or not required by law. CT head/brain wo con CLINICAL HISTORY: fall, weakness COMPARISON STUDY: 06/11/2020 TECHNIQUE: Axial CT of the brain is performed from the vertex to the skull base. IV contrast was not administered for this examination. A dose lowering technique was utilized adhering to the principles of ALARA. CT DOSE: 614.27 mGy.cm FINDINGS: No intra or extra-axial mass lesions are visualized. There is no CT evidence of acute cortical infarction. There is no evidence of midline shift. There is no acute hemorrhage. No calvarial fractures are visualized. There are patchy white matter hypodensities likely on a small vessel basis. There is an old left posterior parietal/occipital infarct. There is cerebellar atrophy. There is no evidence of pathologic ventricular dilatation. There is no evidence of acute sinusitis There is incomplete bony fusion of the anterior C1 arch. IMPRESSION: No acute intracranial findings Consultation(s): Case was discussed with Dariel Ward [facility] [place]. Gonsales, [facility] [place], who will evaluate the patient for admission. HPI: The patient is a pleasant 75-year-old woman with a past medical history of CVA, CKD, epilepsy, diabetes, GERD, migraines, arthritis, dyslipidemia who presents emergency department after being found down in her home by her visiting nurse where the patient reports that she fell Wednesday evening when attempting to make it to the bathroom but urinated herself and slipped in the bathroom onto her back. She denies any head strike or loss of consciousness. She reports she was unable to get up and despite banging on the lovelace no one was able to hear her and so she waited until today where she was found. She reports she did not eat or drink anything until this morning when she was found. Prior to this she denies any recent fevers, chills, cough, congestion, nausea, vomiting, diarrhea, urinary symptoms. ROS: See above HPI for pertinent positives & negatives. A total of 10 systems reviewed and were otherwise negative. PAST MEDICAL HISTORY:See Below PAST SURGICAL HISTORY:See Below FAMILY HISTORY:See Below SOCIAL HISTORY:See Belowben HOME MEDICATIONS:See Below ALLERGIES:See Below VITALS:See Below PHYSICAL EXAMINATION: GENERAL: Awake, alert, fatigued-appearing, in no distress HENT: Normocephalic, atraumatic. Oropharynx with dry and cracked mucous membrane EYES: Normal conjunctiva. Sclera non-icteric. NECK: Supple. No nuchal rigidity. FROM. No JVD. RESPIRATORY: Clear to auscultation. CARDIAC: Regular rate, normal rhythm. Extremities warm and well perfused. Pulses equal. ABDOMEN: Soft, non-distended. No tenderness to palpation. No rebound or guarding. No masses. RECTAL: Deferred. MUSCULOSKELETAL: Chest examination reveals no tenderness. The back is symmetrical on inspection without obvious abnormality. There is no CVA ten derness to palpation. No joint edema. Mild discomfort of bilateral hips. Mild redness to bilateral lateral hips left greater than right likely related to her prolonged downtime. Compartments are soft. No warmth or crepitus. She is able to move both hips symmetrically with mild discomfort. Pelvis is grossly stable. LOWER EXTREMITIES: Calves are equal size bilaterally and non-tender. No edema. No discoloration. NEURO: Normal sensorium. No sensory or motor deficits noted. SKIN: No rash or jaundice noted. ED COURSE: Critical Care: I have personally spent greater than 45 minutes of critical care time in the direct management of this patient. This includes bedside care, interpretation of diagnostic studies, and testing, discussion with consultants, patient, and f amily members, and other required patient management activities. This 45 minutes is in excess of all separately billable procedures. Joshua Casey MD Past Med/Surg History Medical History Bilateral edema of lower extremity Carotid stenosis Cellulitis Cerebrovascular disease, arteriosclerotic, post-stroke CKD (chronic kidney disease), stage III DM type 2 (diabetes mellitus, type 2) Dyslipidemia Encounter for wound re-check Epilepsy GERD (gastroesophageal reflux disease) Hypotension Hypothyroidism Intertrochanteric fracture of right hip (07/18/14) Migraine Osteoarthritis Screening for skin condition Venous stasis ulcer of right lower extremity Vertebral fracture, osteoporotic Surgical History H/O total knee replacement History of bilateral knee replacement History of left-sided carotid endarterectomy S/P cholecystectomy S/P rotator cuff repair Family History Mother Transitional cell carcinoma of bladder Diabetes Cardiac disorder Hypertension Ovarian cancer Grandmother Cancer Uncle Cancer Father Cardiac disorder Hypertension Asthma Social History Smoking Status: Unknown if ever smoked Hx Alcohol Use: No Hx Substance Use: No Preferred Language: Ukrainian Communication Ability: Effective 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 Beliefs That Will Affect Care: None marital status: Current Living Situation: Alone How many Children do You have: 2 Feels Safe at Home: Yes Safety Concerns: Feels Safe At This Time Assistive Devices: Walker Assistive Devices Comment: scooter Allergies Allergies Allergy/AdvReac Type Severity Reaction Status Date / Time omeprazole Allergy Severe throat Verified 11/10/20 14:06 swelling alendronate sodium Allergy Unknown GI SYMPTOMS Verified 11/10/20 14:06 oxytocin Allergy Unknown Nausea and Verified 11/10/20 14:06 vomiting pioglitazone Allergy Unknown Edema BLE Verified 11/10/20 14:06 prednisone Allergy Unknown Nausea and Verified 11/10/20 14:06 vomiting risedronate sodium Allergy Unknown Headache Verified 11/10/20 14:06 and weakness sitagliptin Allergy Unknown Itching Verified 11/10/20 14:06 valproic acid Allergy Unknown Affected Verified 11/10/20 14:06 her memory divalproex sodium Allergy Verified 11/10/20 14:06 [From Depakote] fluoxetine [From Prozac] Allergy Unknown Verified 11/10/20 14:06 codeine AdvReac Unknown NAUSEA/VOMI Verified 11/10/20 14:06 TING morphine AdvReac Unknown nausea/vomi Verified 11/10/20 14:06 ting oxycodone AdvReac Unknown nausea/vomi Verified 11/10/20 14:06 ting Home Meds Home Medications Medication Instructions Recorded Confirmed calcium carbonate 600 mg (1,500 1 tab PO QAM tab 05/01/19 11/10/20 mg)-vitamin D3 200 unit tablet acetaminophen [Tylenol Extra 500 mg PO QAM 04/03/20 11/10/20 Strength] Previous Rx's Medication Instructions Recorded OneTouch Verio Flex Start #1 ea NS 05/03/19 hydrochlorothiazide 25 mg tablet 25 mg PO QAM #90 tab 05/02/20 metformin 500 mg tablet 500 mg PO QAM #90 tab 05/02/20 Shower Chair #1 ea 06/03/20 Zonegran 100 mg capsule 200 mg PO BID 90 Days #360 cap NS 07/23/20 Lamictal 100 mg tablet 100 mg PO BID 90 Days #180 tab NS 09/11/20 levothyroxine 112 mcg tablet 112 mcg PO QAM #90 tab 11/06/20 Results & Data (ED) Vital Signs Vital Signs - 24 hr 11/10/20 12:30 11/10/20 12:37 11/10/20 12:51 Temperature 36.8 C Temperature Source Oral Pulse Rate 103 H 102 H 102 H Pulse Rate from SpO2 Sensor 106 H 103 H Respiratory Rate 18 18 22 Respiratory Effort / Characteristics Non-Labored Blood Pressure 160/66 H 160/66 H Blood Pressure Mean 99 97 Blood Pressure Position Sitting Pulse Oximetry 99 98 99 Oxygen Delivery Method Room Air Sepsis Recent Fever Within 48 Hours No Sepsis New/Unexplained Change in Mental Status No Sepsis Action Taken by Nursing No Action Required 11/10/20 13:00 11/10/20 13:30 11/10/20 13:32 Temperature Temperature Source Pulse Rate 97 H 87 Pulse Rate from SpO2 Sensor 91 H 93 H Respiratory Rate 15 15 Respiratory Effort / Characteristics Blood Pressure Blood Pressure Mean Blood Pressure Position Pulse Oximetry 95 95 96 Oxygen Delivery Method Room Air Sepsis Recent Fever Within 48 Hours Sepsis New/Unexplained Change in Mental Status Sepsis Action Taken by Nursing 11/10/20 13:37 11/10/20 14:30 11/10/20 15:00 Temperature Temperature Source Pulse Rate 97 H 99 H 99 H Pulse Rate from SpO2 Sensor 99 H Respiratory Rate 17 15 15 Respiratory Effort / Characteristics Blood Pressure 159/87 H 134/93 Blood Pressure Mean 101 123 Blood Pressure Position Pulse Oximetry 97 Oxygen Delivery Method Room Air Sepsis Recent Fever Within 48 Hours Sepsis New/Unexplained Change in Mental Status Sepsis Action Taken by Nursing 11/10/20 15:30 11/10/20 16:30 Temperature Temperature Source Pulse Rate 92 H 99 H Pulse Rate from SpO2 Sensor 95 H Respiratory Rate 13 19 Respiratory Effort / Characteristics Blood Pressure 161/83 H 137/81 Blood Pressure Mean 103 94 Blood Pressure Position Pulse Oximetry 98 95 Oxygen Delivery Method Room Air Sepsis Recent Fever Within 48 Hours Sepsis New/Unexplained Change in Mental Status Sepsis Action Taken by Nursing Laboratory Data Attestation: I reviewed the patient's lab results. Result diagrams: 11/10/20 13:26 11/10/20 13:26 Lab Results 11/10/20 11/10/20 11/10/20 Range/Units 13:26 13:26 13:26 WBC 12.22 H (4.8-10.8) K/uL RBC 4.10 L (4.2-5.4) M/uL Hgb 13.3 (12.0-16.0) g/dL Hct 41.5 (37-47) % MCV 101.2 H (80-100) fL MCH 32.4 (25-34) pg MCHC 32.0 (32-36) g/dL RDW Std Deviation 49.1 H (36.4-46.3) fL RDW Coeff of Tony 13.2 (11.5-14.5) % Plt Count 300 (130-400) K/uL MPV 10.1 (7.4-10.4) fL Immature Gran % (Auto) 0.2 % Neut % (Auto) 91.3 % Lymph % (Auto) 3.6 % Desha % (Auto) 4.9 % Eos % (Auto) 0.0 % Baso % (Auto) 0.0 % Neut # (Auto) 11.15 H (1.4-6.5) K/uL Lymph # (Auto) 0.44 L (1.2-3.4) K/uL Desha # (Auto) 0.60 H (0.11-0.59) K/uL Eos # (Auto) 0.00 (0-0.5) K/uL Baso # (Auto) 0.00 (0-0.2) K/uL Immature Gran # (Auto) 0.03 H (0.00-0.02) K/uL PT 10.2 (9.0-12.0) Seconds INR 1.0 (0.9-1.1) APTT 23.8 (21.0-31.0) Seconds PTT Ratio 0.9 Sodium 137 (136-145) mmol/L Potassium 4.4 (3.5-5.1) mmol/L Chloride 99 (98-107) mmol/L Carbon Dioxide 22 (21-32) mmol/L Anion Gap 16.0 H (3-11) BUN 39 H (7-18) mg/dl Creatinine 1.96 H (0.6-1.2) mg/dl Est Cr Clr Drug Dosing 22.8 ml/min Est GFR ( Amer) 28.5 Est GFR (Non-Af Amer) 24.6 BUN/Creatinine Ratio 19.8 (10-20) Glucose 757 H* (70-99) mg/dl POC Glucose (70-99) mg/dl Osmolality (280-300) mOsm/kg Calcium 8.9 (8.5-10.1) mg/dl Phosphorus 4.4 (2.5-4.9) mg/dl Magnesium 2.1 (1.8-2.4) mg/dl Total Bilirubin 0.6 (0.2-1) mg/dl AST 53 H (15-37) U/L ALT 19 (12-78) U/L Alkaline Phosphatase 235 H (45-117) U/L Total Creatine Kinase 792 H (26-192) U/L Troponin I < 0.015 (0-0.045) ng/ml Total Protein 6.8 (6.4-8.2) gm/dl Albumin 3.3 L (3.4-5.0) gm/dl Globulin 3.5 (2.5-4.0) gm/dl Albumin/Globulin Ratio 0.9 (0.9-2) Lipase 95 (73-393) U/L Beta-Hydroxybutyric Acd 49.86 H (0.2-2.81) mg/dl TSH 2.460 (0.300-4.500) uIu/ml Urine Color Urine Appearance (Clear) Urine pH (4.5-7.5) Ur Specific [place] (1.000-1.030) Urine Protein (Negative) Urine Glucose (UA) (Negative) Urine Ketones (Negative) Urine Blood (Negative) Urine Nitrite (Negative) Urine Bilirubin (Negative) Urine Urobilinogen (Negative) Ur Leukocyte Esterase (Negative) Urine WBC (Auto) (0-5) /hpf Urine RBC (Auto) (0-4) /hpf U Hyaline Cast (Auto) (0-5) /lpf U Epithel Cells (Auto) (0-5) /lpf Urine Bacteria (Auto) (Negative) 11/10/20 11/10/20 11/10/20 Range/Units 13:30 14:24 15:26 WBC (4.8-10.8) K/uL RBC (4.2-5.4) M/uL Hgb (12.0-16.0) g/dL Hct (37-47) % MCV (80-100) fL MCH (25-34) pg MCHC (32-36) g/dL RDW Std Deviation (36.4-46.3) fL RDW Coeff of Tony (11.5-14.5) % Plt Count (130-400) K/uL MPV (7.4-10.4) fL Immature Gran % (Auto) % Neut % (Auto) % Lymph % (Auto) % Desha % (Auto) % Eos % (Auto) % Baso % (Auto) % Neut # (Auto) (1.4-6.5) K/uL Lymph # (Auto) (1.2-3.4) K/uL Desha # (Auto) (0.11-0.59) K/uL Eos # (Auto) (0-0.5) K/uL Baso # (Auto) (0-0.2) K/uL Immature Gran # (Auto) (0.00-0.02) K/uL PT (9.0-12.0) Seconds INR (0.9-1.1) APTT (21.0-31.0) Seconds PTT Ratio Sodium (136-145) mmol/L Potassium (3.5-5.1) mmol/L Chloride (98-107) mmol/L Carbon Dioxide (21-32) mmol/L Anion Gap (3-11) BUN (7-18) mg/dl Creatinine (0.6-1.2) mg/dl Est Cr Clr Drug Dosing ml/min Est GFR ( Amer) Est GFR (Non-Af Amer) BUN/Creatinine Ratio (10-20) Glucose (70-99) mg/dl POC Glucose > 600 H* > 600 H* (70-99) mg/dl Osmolality 347 H (280-300) mOsm/kg Calcium (8.5-10.1) mg/dl Phosphorus (2.5-4.9) mg/dl Magnesium (1.8-2.4) mg/dl Total Bilirubin (0.2-1) mg/dl AST (15-37) U/L ALT (12-78) U/L Alkaline Phosphatase (45-117) U/L Total Creatine Kinase (26-192) U/L Troponin I (0-0.045) ng/ml Total Protein (6.4-8.2) gm/dl Albumin (3.4-5.0) gm/dl Globulin (2.5-4.0) gm/dl Albumin/Globulin Ratio (0.9-2) Lipase (73-393) U/L Beta-Hydroxybutyric Acd (0.2-2.81) mg/dl TSH (0.300-4.500) uIu/ml Urine Color Urine Appearance (Clear) Urine pH (4.5-7.5) Ur Specific [place] (1.000-1.030) Urine Protein (Negative) Urine Glucose (UA) (Negative) Urine Ketones (Negative) Urine Blood (Negative) Urine Nitrite (Negative) Urine Bilirubin (Negative) Urine Urobilinogen (Negative) Ur Leukocyte Esterase (Negative) Urine WBC (Auto) (0-5) /hpf Urine RBC (Auto) (0-4) /hpf U Hyaline Cast (Auto) (0-5) /lpf U Epithel Cells (Auto) (0-5) /lpf Urine Bacteria (Auto) (Negative) 11/10/20 11/10/20 Range/Units 15:30 16:33 WBC (4.8-10.8) K/uL RBC (4.2-5.4) M/uL Hgb (12.0-16.0) g/dL Hct (37-47) % MCV (80-100) fL MCH (25-34) pg MCHC (32-36) g/dL RDW Std Deviation (36.4-46.3) fL RDW Coeff of Tony (11.5-14.5) % Plt Count (130-400) K/uL MPV (7.4-10.4) fL Immature Gran % (Auto) % Neut % (Auto) % Lymph % (Auto) % Desha % (Auto) % Eos % (Auto) % Baso % (Auto) % Neut # (Auto) (1.4-6.5) K/uL Lymph # (Auto) (1.2-3.4) K/uL Desha # (Auto) (0.11-0.59) K/uL Eos # (Auto) (0-0.5) K/uL Baso # (Auto) (0-0.2) K/uL Immature Gran # (Auto) (0.00-0.02) K/uL PT (9.0-12.0) Seconds INR (0.9-1.1) APTT (21.0-31.0) Seconds PTT Ratio Sodium (136-145) mmol/L Potassium (3.5-5.1) mmol/L Chloride (98-107) mmol/L Carbon Dioxide (21-32) mmol/L Anion Gap (3-11) BUN (7-18) mg/dl Creatinine (0.6-1.2) mg/dl Est Cr Clr Drug Dosing ml/min Est GFR ( Amer) Est GFR (Non-Af Amer) BUN/Creatinine Ratio (10-20) Glucose (70-99) mg/dl POC Glucose > 600 H* (70-99) mg/dl Osmolality (280-300) mOsm/kg Calcium (8.5-10.1) mg/dl Phosphorus (2.5-4.9) mg/dl Magnesium (1.8-2.4) mg/dl Total Bilirubin (0.2-1) mg/dl AST (15-37) U/L ALT (12-78) U/L Alkaline Phosphatase (45-117) U/L Total Creatine Kinase (26-192) U/L Troponin I (0-0.045) ng/ml Total Protein (6.4-8.2) gm/dl Albumin (3.4-5.0) gm/dl Globulin (2.5-4.0) gm/dl Albumin/Globulin Ratio (0.9-2) Lipase (73-393) U/L Beta-Hydroxybutyric Acd (0.2-2.81) mg/dl TSH (0.300-4.500) uIu/ml Urine Color Yellow Urine Appearance Clear (Clear) Urine pH 5.0 (4.5-7.5) Ur Specific [place] 1.034 H (1.000-1.030) Urine Protein 1+ H (Negative) Urine Glucose (UA) 3+ H (Negative) Urine Ketones 2+ H (Negative) Urine Blood Trace H (Negative) Urine Nitrite Negative (Negative) Urine Bilirubin Negative (Negative) Urine Urobilinogen Negative (Negative) Ur Leukocyte Esterase Negative (Negative) Urine WBC (Auto) 1-5 (0-5) /hpf Urine RBC (Auto) 0-4 (0-4) /hpf U Hyaline Cast (Auto) 1-5 (0-5) /lpf U Epithel Cells (Auto) >30 H (0-5) /lpf Urine Bacteria (Auto) Negative (Negative) Administered Medications Insulin Human Regular 250 (units/ Sodium Chloride) 250 mls @ 8.6 mls/hr IV .Q24H GLORIA; Protocol Stop: 12/10/20 16:44 Last Titration: 11/10/20 20:54 Dose: 8.6 units/hr, 8.6 mls/hr Documented by: [id number] Cosigned by: [id number] Titration: 11/10/20 19:50 Dose: 8.6 units/hr, 8.6 mls/hr Documented by: [id number] Cosigned by: [id number] Titration: 11/10/20 19:15 Dose: 8.6 units/hr, 8.6 mls/hr Documented by: [id number] Cosigned by: [id number] Titration: 11/10/20 18:44 Dose: 8.6 units/hr, 8.6 mls/hr Documented by: [id number] Cosigned by: [id number] Admin: 11/10/20 17:28 Dose: 7.2 units/hr, 7.2 mls/hr Documented by: [id number] Cosigned by: [id number] Potassium Chloride/Sodium Chloride (1/2 Nss + 20meq Kcl 1000ml) 20 meq in 1,000 mls @ 100 mls/hr IV .Q10H GLORIA Stop: 12/10/20 19:59 Last Admin: 11/10/20 20:52 Dose: 100 mls/hr Documented by: [id number] Insulin Aspart (Insulin Aspart 100 Units/Ml 3 Ml Pen) 0 units SC ACHS GLORIA Stop: 12/10/20 20:59 Last Admin: 11/10/20 20:53 Dose: 5 units Documented by: [id number] Cosigned by: [id number] Lamotrigine (Lamotrigine 100 Mg Tab) 100 mg PO BID GLORIA Stop: 12/10/20 20:59 Last Admin: 11/10/20 20:52 Dose: 100 mg Documented by: [id number] Discontinued Medications Sodium Chloride (Nss 1000ml) 1,000 mls @ 999 mls/hr IV .Q1H1M ONE Stop: 11/10/20 13:55 Last Infusion: 11/10/20 14:43 Dose: 0 mls/hr Documented by: [id number] Admin: 11/10/20 13:33 Dose: 999 mls/hr Documented by: [id number] Acetaminophen (Ofirmev) 1,000 mg in 100 mls @ 400 mls/hr IV NOW STA Stop: 11/10/20 13:12 Last Infusion: 11/10/20 14:11 Dose: 0 mls/hr Documented by: [id number] Admin: 11/10/20 13:37 Dose: 400 mls/hr Documented by: [id number] Insulin Glargine (Insulin Glargine Solostar 100 Units/Ml 3 Ml Pen) 7 units SC ONE STA Stop: 11/10/20 15:42 Last Admin: 11/10/20 16:49 Dose: Not Given Documented by: [id number] Insulin Human Regular (Novolin-R Insulin Per Unit Charge) 10 units IV NOW STA Stop: 11/10/20 15:32 Last Admin: 11/10/20 15:53 Dose: 10 units Documented by: [id number] Cosigned by: [id number] Discharge Plan Visit Data Chief Complaint: Fall Stated Complaint: FALL ED Provider: Joshua Casey Discharge Problem: Hyperosmolar hyperglycemic state (HHS), Rhabdomyolysis, Fall from slipping on wet surface, CKD (chronic kidney disease), stage III Patient Disposition: Admitted As Inpatient Discharge Instructions Interventions: ED Discharge Assessment Last Done: 11/10/20 19:00 Discharge Problem: Rhabdomyolysis Qualifiers: Rhabdomyolysis type: traumatic Encounter type: initial encounter Qualified Code(s): T79.6XXA - Traumatic ischemia of muscle, initial encounter Fall from slipping on wet surface Qualifiers: Encounter type: initial encounter Qualified Code(s): W01.0XXA - Fall on same level from slipping, tripping and stumbling without subsequent striking against object, initial encounter CKD (chronic kidney disease), stage III Qualifiers: Chronic kidney disease stage 3 subtype: unspecified whether 3a or 3b Qualified Code(s): N18.30 - Chronic kidney disease, stage 3 unspecified
[2020-11-10 17:47] LABS: Base Excess VBG -2.3 mEq/L; HCO3 VBG 24 mmol/L; PCO2 VBG 47 mmHg (38-50); PO2 VBG 21 mmHg; pH VBG 7.33 (7.36-7.41)
[2020-11-10 17:48] LABS: Oxygen Saturation VBG < 60.0 %
[2020-11-10 18:32] LABS: Influenza A virus by PCR Negative (Neg); Influenza B virus by PCR Negative (Neg); RSV by PCR Negative (Neg); SARS CoV2 RNA(COVID-19) InHosp NEGATIVE (Negative)
[2020-11-10] MEDS ORDERED: SODIUM CHLOR 0.45% + 20MEQ KCL 20 MEQ/1,000 ML BAG IV SCH (20:00)
--- NOTE | 2020-11-10 20:07 | Electrocardiogram Report ---
Test Reason : Blood Pressure : / mmHG Vent. Rate : 097 BPM Atrial Rate : 097 BPM P-R Int : 138 ms QRS Dur : 096 ms QT Int : 368 ms P-R-T Axes : 081 -45 -58 degrees QTc Int : 467 ms Poor data quality, interpretation may be adversely affected Sinus rhythm with Premature atrial complexes with Aberrant conduction Left axis deviation Incomplete right bundle branch block Moderate voltage criteria for LVH, may be normal variant Abnormal ECG When compared with ECG of 03-APR-2020 14:47, Aberrant conduction is now Present Incomplete right bundle branch block is now Present Confirmed by Damien Ballesteros ([id number]) on 11/10/2020 8:07:25 PM Referred By: REFERRED SELF Confirmed By:Jayy Ballesteros
[2020-11-10] MEDS: lamoTRIgine 100 MG TAB PO SCH (20:52)
[2020-11-10] MEDS: INSULIN ASPART 100 UNITS/ML 3 ML PEN SC SCH (20:53)
[2020-11-10] MEDS ORDERED: INSULIN GLARGINE SOLOSTAR 100 UNITS/ML 3 ML PEN SC SCH (21:00)
[2020-11-11] MEDS: D5W AND 1/2NSS + 20MEQ KCL 20 MEQ/1,000 ML BAG IV SCH ×2 (00:09→08:46)
[2020-11-11] MEDS: ACETAMINOPHEN 500 MG TAB PO PRN ×4 (00:38→21:08)
[2020-11-11] MEDS ORDERED: SODIUM CHLORIDE 0.9% 1000ML 250 ML IV ONE (01:49)
[2020-11-11] MEDS: PENDING D5 1/2NS+20mEq KCL IVF SCH ×2 (05:31→06:05)
[2020-11-11] MEDS: LEVOTHYROXINE SODIUM 112 MCG TABLET PO SCH (05:46)
[2020-11-11 06:08] LABS: Basophils # (auto) 0.02 K/uL (0-0.2); Basophils % (auto) 0.1 %; Eosinophils # (auto) 0.11 K/uL (0-0.5); Eosinophils % (auto) 0.7 %; Hematocrit (blood only) 32.4 % (37-47); Hemoglobin 10.9 g/dL (12.0-16.0); Immature Granulocytes # (auto) 0.06 K/uL (0.00-0.02); Immature Granulocytes % (auto) 0.4 %; Lymphocytes % (auto) 15.9 %; Mean Corpuscular Hemoglobin 32.4 pg (25-34); Mean Corpuscular Hgb Conc 33.6 g/dL (32-36); Mean Corpuscular Volume 96.4 fL (80-100); Mean Platelet Volume 9.5 fL (7.4-10.4); Monocytes # (auto) 1.36 K/uL (0.11-0.59); Neutrophils # (auto) 11.13 K/uL (1.4-6.5); Neutrophils % (auto) 73.9 %; Platelet Count 287 K/uL (130-400); RDW Standard Deviation 45.4 fL (36.4-46.3); Red Blood Count 3.36 M/uL (4.2-5.4); White Blood Count 15.08 K/uL (4.8-10.8)
[2020-11-11 06:49] LABS: BUN Creatinine Ratio 24.9 (10-20); Calcium 8.1 mg/dl (8.5-10.1); Creatinine Clr Calc Pharmacy 26.5 ml/min; Est GFR (African American) 34.1; Est GFR (Non-African American) 29.4; Potassium 4.3 mmol/L (3.5-5.1)
--- NOTE | 2020-11-11 06:54 | XRay Report ---
XR forearm LT 2V, XR humerus LT 2V HISTORY: 75 years-old Female fall, worsening pain acute left upper extremity pain status post fall COMPARISON: Left elbow and shoulder radiographs 06/11/2020 TECHNIQUE: 2 views of the left humerus and 2 views of the left forearm FINDINGS: FOREARM: Demineralized appearance of the bones. Osteoarthritis of the wrist and elbow. Moderate dorsal soft ti ssue swelling of the proximal forearm. No acute fracture, dislocation or opaque foreign body. HUMERUS: ORIF changes of the elbow with advanced degenerative changes. 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 No acute fra cture or dislocation identified. IMPRESSION: 1. No acute fracture or dislocation of the left humerus or forearm. 2. ORIF changes of the left elbow with advanced degenerative changes. 3. Healed remote fracture deformity of the left proximal humerus with severe degeneration of the kiley ohumeral joint. ACT 112: Negative or not required by law. The above report was generated using voice recognition software. It may contain grammatical, syntax o r spelling errors. Electronically signed by: Bong Angel M.D. 11/11/2020 6:52 AM
[2020-11-11 07:00] LABS: Estimated Average Glucose > 438 mg/dl; Hemoglobin A1C > 16.9 % (4.5-5.6)
[2020-11-11] MEDS ORDERED: INSULIN GLARGINE SOLOSTAR 100 UNITS/ML 3 ML PEN SC ONE ×2 (08:00→14:45)
--- NOTE | 2020-11-11 08:23 | Hospitalist Progress Note ---
Date of Service November 11, 2020 Assessment & Plan (1) Fall: Admitted for fall on water, but also found to be hyperglycemic with BSGs <600 on admission and placed on insulin gtt, possibly HHS compounded by the fact that she was down for 2 days prior to admission Due to the patient's fall she will be admitted to the hospital and we will proceed as follows: * PT/OT consults pending * CPK elevated on admission to 792 and 634 on repeat * Continue IVF but increase to 125cc/hr * CT hip done on left hip this morning -- will obtain imaging of her RIGHT hip to r/o infection * Add tramadol for pain * Procalcitonin pending * Will start on doxycycline BID IV for suspected cellulitis * US Dopplers pending to r/o DVT given swelling/pain but suspect from cellulitis * Continue to monitor (2) Hyperglycemia: * BSGs <600 on admission and patient started on insulin gtt. Also with anion gap (also now resolved) * Pharmacy consulted for glycemic management * A1c 16.9 -- inclusion special educator consulted * BSGs now in 190s this morning * Continue to monitor -- will need meter/likely insulin at discharge (3) Chronic kidney disease: * Patient's renal function is at baseline * Renally dose medications when appropriated We will follow serial labs and make adjustments as needed (4) Hyperosmolar hyperglycemic state (HHS): * As above - improving (5) Rhabdomyolysis: * Improving -- IVF as above * Monitor on AM labs * Pt/ot consults pending (6) Fall from slipping on wet surface: as above (7) Bilateral edema of lower extremity: dopplers pending to r/o DVT doxy as above continue to monitor (8) Cellulitis: doxy as above Seizures Noted. Follows locally with Dr. Castellanos. Continue home lamictal, zonegran Folate levels and B12 added to Am blood given MCV >100 Folate low -- started on replacement and discussed with patient -- to continue at discharge Hypothyroidism TSH 2.4 Continue home levothyroxine 112mcg daily DVT Prophylaxis Lovenox Dispo: continued inpatient stay Admission and Anticipated Discharge Date Admission Date: November 10, 2020 Subjective Patient evaluated this morning. Pain to her left arm/hand, not currently controlled by medications. States she has a lot of allergies, but that Tylenol is not helping to control her pain. Does not endorse ever having tried tramadol in the past but willing to try to see if any extra relief. Also with left hip pain and pain to her buttocks from fall on ice day prior to admission. Had nausea, but that is improved, but does not really want to eat due to pain. Discussed elevated A1c -- patient states she has not been checking sugars at home due to broken meter but with significant elevations, we did discuss she may need insulin therapy at discharge. Denies fever, chills, chest pain, shortness of breath, cough, abdominal pain, nausea, vomiting. Andrea draining yellow urine. Discussed we do not have her Zonegran -- she states [facility] should be able to bring this in if contacted. Review of Systems Review of Systems: All systems reviewed & are unremarkable except as noted in HPI & below Physical Exam Physical Exam: No noted head trauma Constitutional: well developed and well nourished; no acute distress and + uncomfortable Eyes: no conjunctival abnormality ENMT: Ears: no hearing impairment Neck: trachea midline Respiratory: normal respiratory effort; no respiratory distress and no labored breathing Cardiovascular: Rate/Rhythm: regular rate and regular rhythm Extremities: + edema (b/l, tender) Gastrointestinal (Abdomen): Inspection/Auscultation: abdomen not distended Percussion/Palpation: abdomen soft; abdomen nontender Musculoskeletal: Calves tender to palpation -- R>L edema, non-pitting with erythema and warmth R scar from prior hip surgery ecchymosis to R buttock-- tender No calf tenderness or foot wounds. Patient had a well-healed scar over her right hip from a previous hip surgery. Pain noted with palpation of the right hip Skin: no rashes, warm and dry Neurologic: CN's II-XI intact bilaterally and moves all extremities Psychiatric: Orientation: alert and oriented x 3 Genitourinary: andrea draining clear/yellow urine Lymphatic: no cervical or axillary lymphadenopathy Results & Data Results & Data ([facility]) Vital Signs (Past 12 Hours) Vital Signs Temp Pulse Resp BP BP Pulse Ox 11/11/20 07:52 36.8 C 85 16 100/65 91 11/11/20 04:30 85 102/49 L 11/11/20 03:04 36.4 C L 89 16 104/64 96 11/11/20 02:14 93/49 L 11/11/20 01:46 36.6 C 90 16 88/47 L 96 11/10/20 22:58 36.6 C 82 16 99/58 L 95 Laboratory Results 11/11/20 11/11/20 11/11/20 Range/Units 06:42 05:52 05:52 WBC 15.08 H (4.8-10.8) K/uL RBC 3.36 L (4.2-5.4) M/uL Hgb 10.9 L (12.0-16.0) g/dL Hct 32.4 L (37-47) % MCV 96.4 (80-100) fL MCH 32.4 (25-34) pg MCHC 33.6 (32-36) g/dL RDW Std Deviation 45.4 (36.4-46.3) fL RDW Coeff of Tony 13.0 (11.5-14.5) % Plt Count 287 (130-400) K/uL MPV 9.5 (7.4-10.4) fL Immature Gran % (Auto) 0.4 % Neut % (Auto) 73.9 % Lymph % (Auto) 15.9 % [place] % (Auto) 9.0 % Eos % (Auto) 0.7 % Baso % (Auto) 0.1 % Neut # (Auto) 11.13 H (1.4-6.5) K/uL Lymph # (Auto) 2.40 (1.2-3.4) K/uL [place] # (Auto) 1.36 H (0.11-0.59) K/uL Eos # (Auto) 0.11 (0-0.5) K/uL Baso # (Auto) 0.02 (0-0.2) K/uL Immature Gran # (Auto) 0.06 H (0.00-0.02) K/uL PT (9.0-12.0) Seconds INR (0.9-1.1) APTT (21.0-31.0) Seconds PTT Ratio VBG pH (7.36-7.41) VBG pCO2 (38-50) mmHg VBG pO2 mmHg VBG HCO3 mmol/L VBG O2 Saturation % VBG Base Excess mEq/L Barometric Pressure mm/Hg Sodium (136-145) mmol/L Potassium (3.5-5.1) mmol/L Chloride (98-107) mmol/L Carbon Dioxide (21-32) mmol/L Anion Gap (3-11) BUN (7-18) mg/dl Creatinine (0.6-1.2) mg/dl Est Cr Clr Drug Dosing ml/min Est GFR ( Amer) Est GFR (Non-Af Amer) BUN/Creatinine Ratio (10-20) Glucose (70-99) mg/dl POC Glucose 167 H (70-99) mg/dl Estimat Average Glucose > 438 mg/dl Hemoglobin A1c > 16.9 H (4.5-5.6) % Osmolality (280-300) mOsm/kg Calcium (8.5-10.1) mg/dl Phosphorus (2.5-4.9) mg/dl Magnesium (1.8-2.4) mg/dl Total Bilirubin (0.2-1) mg/dl AST (15-37) U/L ALT (12-78) U/L Alkaline Phosphatase (45-117) U/L Total Creatine Kinase (26-192) U/L Troponin I (0-0.045) ng/ml Total Protein (6.4-8.2) gm/dl Albumin (3.4-5.0) gm/dl Globulin (2.5-4.0) gm/dl Albumin/Globulin Ratio (0.9-2) Lipase (73-393) U/L Beta-Hydroxybutyric Acd (0.2-2.81) mg/dl TSH (0.300-4.500) uIu/ml Urine Color Urine Appearance (Clear) Urine pH (4.5-7.5) Ur Specific [place] (1.000-1.030) Urine Protein (Negative) Urine Glucose (UA) (Negative) Urine Ketones (Negative) Urine Blood (Negative) Urine Nitrite (Negative) Urine Bilirubin (Negative) Urine Urobilinogen (Negative) Ur Leukocyte Esterase (Negative) Urine WBC (Auto) (0-5) /hpf Urine RBC (Auto) (0-4) /hpf U Hyaline Cast (Auto) (0-5) /lpf U Epithel Cells (Auto) (0-5) /lpf Urine Bacteria (Auto) (Negative) COVID-19 Eval Order SARS-CoV-2 (PCR) (Negative) Influenza Type A (PCR) (Neg) Influenza Type B (PCR) (Neg) RSV (RT-PCR) (Neg) 11/11/20 11/11/20 11/11/20 Range/Units 05:52 05:45 04:42 WBC (4.8-10.8) K/uL RBC (4.2-5.4) M/uL Hgb (12.0-16.0) g/dL Hct (37-47) % MCV (80-100) fL MCH (25-34) pg MCHC (32-36) g/dL RDW Std Deviation (36.4-46.3) fL RDW Coeff of Tony (11.5-14.5) % Plt Count (130-400) K/uL MPV (7.4-10.4) fL Immature Gran % (Auto) % Neut % (Auto) % Lymph % (Auto) % [place] % (Auto) % Eos % (Auto) % Baso % (Auto) % Neut # (Auto) (1.4-6.5) K/uL Lymph # (Auto) (1.2-3.4) K/uL [place] # (Auto) (0.11-0.59) K/uL Eos # (Auto) (0-0.5) K/uL Baso # (Auto) (0-0.2) K/uL Immature Gran # (Auto) (0.00-0.02) K/uL PT (9.0-12.0) Seconds INR (0.9-1.1) APTT (21.0-31.0) Seconds PTT Ratio VBG pH (7.36-7.41) VBG pCO2 (38-50) mmHg VBG pO2 mmHg VBG HCO3 mmol/L VBG O2 Saturation % VBG Base Excess mEq/L Barometric Pressure mm/Hg Sodium 131 L (136-145) mmol/L Potassium 4.3 (3.5-5.1) mmol/L Chloride 99 (98-107) mmol/L Carbon Dioxide 26 (21-32) mmol/L Anion Gap 6.0 (3-11) BUN 42 H (7-18) mg/dl Creatinine 1.69 H (0.6-1.2) mg/dl Est Cr Clr Drug Dosing 26.5 ml/min Est GFR ( Amer) 34.1 Est GFR (Non-Af Amer) 29.4 BUN/Creatinine Ratio 24.9 H (10-20) Glucose 119 H (70-99) mg/dl POC Glucose 156 H 110 H (70-99) mg/dl Estimat Average Glucose mg/dl Hemoglobin A1c (4.5-5.6) % Osmolality (280-300) mOsm/kg Calcium 8.1 L (8.5-10.1) mg/dl Phosphorus (2.5-4.9) mg/dl Magnesium (1.8-2.4) mg/dl Total Bilirubin (0.2-1) mg/dl AST (15-37) U/L ALT (12-78) U/L Alkaline Phosphatase (45-117) U/L Total Creatine Kinase (26-192) U/L Troponin I (0-0.045) ng/ml Total Protein (6.4-8.2) gm/dl Albumin (3.4-5.0) gm/dl Globulin (2.5-4.0) gm/dl Albumin/Globulin Ratio (0.9-2) Lipase (73-393) U/L Beta-Hydroxybutyric Acd (0.2-2.81) mg/dl TSH (0.300-4.500) uIu/ml Urine Color Urine Appearance (Clear) Urine pH (4.5-7.5) Ur Specific [place] (1.000-1.030) Urine Protein (Negative) Urine Glucose (UA) (Negative) Urine Ketones (Negative) Urine Blood (Negative) Urine Nitrite (Negative) Urine Bilirubin (Negative) Urine Urobilinogen (Negative) Ur Leukocyte Esterase (Negative) Urine WBC (Auto) (0-5) /hpf Urine RBC (Auto) (0-4) /hpf U Hyaline Cast (Auto) (0-5) /lpf U Epithel Cells (Auto) (0-5) /lpf Urine Bacteria (Auto) (Negative) COVID-19 Eval Order SARS-CoV-2 (PCR) (Negative) Influenza Type A (PCR) (Neg) Influenza Type B (PCR) (Neg) RSV (RT-PCR) (Neg) 11/11/20 11/11/20 11/11/20 Range/Units 03:40 01:45 00:38 WBC (4.8-10.8) K/uL RBC (4.2-5.4) M/uL Hgb (12.0-16.0) g/dL Hct (37-47) % MCV (80-100) fL MCH (25-34) pg MCHC (32-36) g/dL RDW Std Deviation (36.4-46.3) fL RDW Coeff of Tony (11.5-14.5) % Plt Count (130-400) K/uL MPV (7.4-10.4) fL Immature Gran % (Auto) % Neut % (Auto) % Lymph % (Auto) % [place] % (Auto) % Eos % (Auto) % Baso % (Auto) % Neut # (Auto) (1.4-6.5) K/uL Lymph # (Auto) (1.2-3.4) K/uL [place] # (Auto) (0.11-0.59) K/uL Eos # (Auto) (0-0.5) K/uL Baso # (Auto) (0-0.2) K/uL Immature Gran # (Auto) (0.00-0.02) K/uL PT (9.0-12.0) Seconds INR (0.9-1.1) APTT (21.0-31.0) Seconds PTT Ratio VBG pH (7.36-7.41) VBG pCO2 (38-50) mmHg VBG pO2 mmHg VBG HCO3 mmol/L VBG O2 Saturation % VBG Base Excess mEq/L Barometric Pressure mm/Hg Sodium (136-145) mmol/L Potassium (3.5-5.1) mmol/L Chloride (98-107) mmol/L Carbon Dioxide (21-32) mmol/L Anion Gap (3-11) BUN (7-18) mg/dl Creatinine (0.6-1.2) mg/dl Est Cr Clr Drug Dosing ml/min Est GFR ( Amer) Est GFR (Non-Af Amer) BUN/Creatinine Ratio (10-20) Glucose (70-99) mg/dl POC Glucose 121 H 178 H 208 H (70-99) mg/dl Estimat Average Glucose mg/dl Hemoglobin A1c (4.5-5.6) % Osmolality (280-300) mOsm/kg Calcium (8.5-10.1) mg/dl Phosphorus (2.5-4.9) mg/dl Magnesium (1.8-2.4) mg/dl Total Bilirubin (0.2-1) mg/dl AST (15-37) U/L ALT (12-78) U/L Alkaline Phosphatase (45-117) U/L Total Creatine Kinase (26-192) U/L Troponin I (0-0.045) ng/ml Total Protein (6.4-8.2) gm/dl Albumin (3.4-5.0) gm/dl Globulin (2.5-4.0) gm/dl Albumin/Globulin Ratio (0.9-2) Lipase (73-393) U/L Beta-Hydroxybutyric Acd (0.2-2.81) mg/dl TSH (0.300-4.500) uIu/ml Urine Color Urine Appearance (Clear) Urine pH (4.5-7.5) Ur Specific [place] (1.000-1.030) Urine Protein (Negative) Urine Glucose (UA) (Negative) Urine Ketones (Negative) Urine Blood (Negative) Urine Nitrite (Negative) Urine Bilirubin (Negative) Urine Urobilinogen (Negative) Ur Leukocyte Esterase (Negative) Urine WBC (Auto) (0-5) /hpf Urine RBC (Auto) (0-4) /hpf U Hyaline Cast (Auto) (0-5) /lpf U Epithel Cells (Auto) (0-5) /lpf Urine Bacteria (Auto) (Negative) COVID-19 Eval Order SARS-CoV-2 (PCR) (Negative) Influenza Type A (PCR) (Neg) Influenza Type B (PCR) (Neg) RSV (RT-PCR) (Neg) 11/10/20 11/10/20 11/10/20 Range/Units 23:51 22:44 21:42 WBC (4.8-10.8) K/uL RBC (4.2-5.4) M/uL Hgb (12.0-16.0) g/dL Hct (37-47) % MCV (80-100) fL MCH (25-34) pg MCHC (32-36) g/dL RDW Std Deviation (36.4-46.3) fL RDW Coeff of Tony (11.5-14.5) % Plt Count (130-400) K/uL MPV (7.4-10.4) fL Immature Gran % (Auto) % Neut % (Auto) % Lymph % (Auto) % [place] % (Auto) % Eos % (Auto) % Baso % (Auto) % Neut # (Auto) (1.4-6.5) K/uL Lymph # (Auto) (1.2-3.4) K/uL [place] # (Auto) (0.11-0.59) K/uL Eos # (Auto) (0-0.5) K/uL Baso # (Auto) (0-0.2) K/uL Immature Gran # (Auto) (0.00-0.02) K/uL PT (9.0-12.0) Seconds INR (0.9-1.1) APTT (21.0-31.0) Seconds PTT Ratio VBG pH (7.36-7.41) VBG pCO2 (38-50) mmHg VBG pO2 mmHg VBG HCO3 mmol/L VBG O2 Saturation % VBG Base Excess mEq/L Barometric Pressure mm/Hg Sodium (136-145) mmol/L Potassium (3.5-5.1) mmol/L Chloride (98-107) mmol/L Carbon Dioxide (21-32) mmol/L Anion Gap (3-11) BUN (7-18) mg/dl Creatinine (0.6-1.2) mg/dl Est Cr Clr Drug Dosing ml/min Est GFR ( Amer) Est GFR (Non-Af Amer) BUN/Creatinine Ratio (10-20) Glucose (70-99) mg/dl POC Glucose 189 H 265 H 338 H* (70-99) mg/dl Estimat Average Glucose mg/dl Hemoglobin A1c (4.5-5.6) % Osmolality (280-300) mOsm/kg Calcium (8.5-10.1) mg/dl Phosphorus (2.5-4.9) mg/dl Magnesium (1.8-2.4) mg/dl Total Bilirubin (0.2-1) mg/dl AST (15-37) U/L ALT (12-78) U/L Alkaline Phosphatase (45-117) U/L Total Creatine Kinase (26-192) U/L Troponin I (0-0.045) ng/ml Total Protein (6.4-8.2) gm/dl Albumin (3.4-5.0) gm/dl Globulin (2.5-4.0) gm/dl Albumin/Globulin Ratio (0.9-2) Lipase (73-393) U/L Beta-Hydroxybutyric Acd (0.2-2.81) mg/dl TSH (0.300-4.500) uIu/ml Urine Color Urine Appearance (Clear) Urine pH (4.5-7.5) Ur Specific [place] (1.000-1.030) Urine Protein (Negative) Urine Glucose (UA) (Negative) Urine Ketones (Negative) Urine Blood (Negative) Urine Nitrite (Negative) Urine Bilirubin (Negative) Urine Urobilinogen (Negative) Ur Leukocyte Esterase (Negative) Urine WBC (Auto) (0-5) /hpf Urine RBC (Auto) (0-4) /hpf U Hyaline Cast (Auto) (0-5) /lpf U Epithel Cells (Auto) (0-5) /lpf Urine Bacteria (Auto) (Negative) COVID-19 Eval Order SARS-CoV-2 (PCR) (Negative) Influenza Type A (PCR) (Neg) Influenza Type B (PCR) (Neg) RSV (RT-PCR) (Neg) 11/10/20 11/10/20 11/10/20 Range/Units 20:46 19:45 18:38 WBC (4.8-10.8) K/uL RBC (4.2-5.4) M/uL Hgb (12.0-16.0) g/dL Hct (37-47) % MCV (80-100) fL MCH (25-34) pg MCHC (32-36) g/dL RDW Std Deviation (36.4-46.3) fL RDW Coeff of Tony (11.5-14.5) % Plt Count (130-400) K/uL MPV (7.4-10.4) fL Immature Gran % (Auto) % Neut % (Auto) % Lymph % (Auto) % [place] % (Auto) % Eos % (Auto) % Baso % (Auto) % Neut # (Auto) (1.4-6.5) K/uL Lymph # (Auto) (1.2-3.4) K/uL [place] # (Auto) (0.11-0.59) K/uL Eos # (Auto) (0-0.5) K/uL Baso # (Auto) (0-0.2) K/uL Immature Gran # (Auto) (0.00-0.02) K/uL PT (9.0-12.0) Seconds INR (0.9-1.1) APTT (21.0-31.0) Seconds PTT Ratio VBG pH (7.36-7.41) VBG pCO2 (38-50) mmHg VBG pO2 mmHg VBG HCO3 mmol/L VBG O2 Saturation % VBG Base Excess mEq/L Barometric Pressure mm/Hg Sodium (136-145) mmol/L Potassium (3.5-5.1) mmol/L Chloride (98-107) mmol/L Carbon Dioxide (21-32) mmol/L Anion Gap (3-11) BUN (7-18) mg/dl Creatinine (0.6-1.2) mg/dl Est Cr Clr Drug Dosing ml/min Est GFR ( Amer) Est GFR (Non-Af Amer) BUN/Creatinine Ratio (10-20) Glucose (70-99) mg/dl POC Glucose 400 H* 488 H* 592 H* (70-99) mg/dl Estimat Average Glucose mg/dl Hemoglobin A1c (4.5-5.6) % Osmolality (280-300) mOsm/kg Calcium (8.5-10.1) mg/dl Phosphorus (2.5-4.9) mg/dl Magnesium (1.8-2.4) mg/dl Total Bilirubin (0.2-1) mg/dl AST (15-37) U/L ALT (12-78) U/L Alkaline Phosphatase (45-117) U/L Total Creatine Kinase (26-192) U/L Troponin I (0-0.045) ng/ml Total Protein (6.4-8.2) gm/dl Albumin (3.4-5.0) gm/dl Globulin (2.5-4.0) gm/dl Albumin/Globulin Ratio (0.9-2) Lipase (73-393) U/L Beta-Hydroxybutyric Acd (0.2-2.81) mg/dl TSH (0.300-4.500) uIu/ml Urine Color Urine Appearance (Clear) Urine pH (4.5-7.5) Ur Specific [place] (1.000-1.030) Urine Protein (Negative) Urine Glucose (UA) (Negative) Urine Ketones (Negative) Urine Blood (Negative) Urine Nitrite (Negative) Urine Bilirubin (Negative) Urine Urobilinogen (Negative) Ur Leukocyte Esterase (Negative) Urine WBC (Auto) (0-5) /hpf Urine RBC (Auto) (0-4) /hpf U Hyaline Cast (Auto) (0-5) /lpf U Epithel Cells (Auto) (0-5) /lpf Urine Bacteria (Auto) (Negative) COVID-19 Eval Order SARS-CoV-2 (PCR) (Negative) Influenza Type A (PCR) (Neg) Influenza Type B (PCR) (Neg) RSV (RT-PCR) (Neg) 11/10/20 11/10/20 11/10/20 Range/Units 17:31 17:31 17:27 WBC (4.8-10.8) K/uL RBC (4.2-5.4) M/uL Hgb (12.0-16.0) g/dL Hct (37-47) % MCV (80-100) fL MCH (25-34) pg MCHC (32-36) g/dL RDW Std Deviation (36.4-46.3) fL RDW Coeff of Tony (11.5-14.5) % Plt Count (130-400) K/uL MPV (7.4-10.4) fL Immature Gran % (Auto) % Neut % (Auto) % Lymph % (Auto) % [place] % (Auto) % Eos % (Auto) % Baso % (Auto) % Neut # (Auto) (1.4-6.5) K/uL Lymph # (Auto) (1.2-3.4) K/uL [place] # (Auto) (0.11-0.59) K/uL Eos # (Auto) (0-0.5) K/uL Baso # (Auto) (0-0.2) K/uL Immature Gran # (Auto) (0.00-0.02) K/uL PT (9.0-12.0) Seconds INR (0.9-1.1) APTT (21.0-31.0) Seconds PTT Ratio VBG pH 7.33 L (7.36-7.41) VBG pCO2 47 (38-50) mmHg VBG pO2 21 mmHg VBG HCO3 24 mmol/L VBG O2 Saturation < 60.0 % VBG Base Excess -2.3 mEq/L Barometric Pressure 740.9 mm/Hg Sodium (136-145) mmol/L Potassium (3.5-5.1) mmol/L Chloride (98-107) mmol/L Carbon Dioxide (21-32) mmol/L Anion Gap (3-11) BUN (7-18) mg/dl Creatinine (0.6-1.2) mg/dl Est Cr Clr Drug Dosing ml/min Est GFR ( Amer) Est GFR (Non-Af Amer) BUN/Creatinine Ratio (10-20) Glucose (70-99) mg/dl POC Glucose (70-99) mg/dl Estimat Average Glucose mg/dl Hemoglobin A1c (4.5-5.6) % Osmolality (280-300) mOsm/kg Calcium (8.5-10.1) mg/dl Phosphorus (2.5-4.9) mg/dl Magnesium (1.8-2.4) mg/dl Total Bilirubin (0.2-1) mg/dl AST (15-37) U/L ALT (12-78) U/L Alkaline Phosphatase (45-117) U/L Total Creatine Kinase (26-192) U/L Troponin I (0-0.045) ng/ml Total Protein (6.4-8.2) gm/dl Albumin (3.4-5.0) gm/dl Globulin (2.5-4.0) gm/dl Albumin/Globulin Ratio (0.9-2) Lipase (73-393) U/L Beta-Hydroxybutyric Acd (0.2-2.81) mg/dl TSH (0.300-4.500) uIu/ml Urine Color Urine Appearance (Clear) Urine pH (4.5-7.5) Ur Specific [place] (1.000-1.030) Urine Protein (Negative) Urine Glucose (UA) (Negative) Urine Ketones (Negative) Urine Blood (Negative) Urine Nitrite (Negative) Urine Bilirubin (Negative) Urine Urobilinogen (Negative) Ur Leukocyte Esterase (Negative) Urine WBC (Auto) (0-5) /hpf Urine RBC (Auto) (0-4) /hpf U Hyaline Cast (Auto) (0-5) /lpf U Epithel Cells (Auto) (0-5) /lpf Urine Bacteria (Auto) (Negative) COVID-19 Eval Order CovFluRsv at [facility] SARS-CoV-2 (PCR) NEGATIVE (Negative) Influenza Type A (PCR) Negative (Neg) Influenza Type B (PCR) Negative (Neg) RSV (RT-PCR) Negative (Neg) 11/10/20 11/10/20 11/10/20 Range/Units 16:33 15:30 15:26 WBC (4.8-10.8) K/uL RBC (4.2-5.4) M/uL Hgb (12.0-16.0) g/dL Hct (37-47) % MCV (80-100) fL MCH (25-34) pg MCHC (32-36) g/dL RDW Std Deviation (36.4-46.3) fL RDW Coeff of Tony (11.5-14.5) % Plt Count (130-400) K/uL MPV (7.4-10.4) fL Immature Gran % (Auto) % Neut % (Auto) % Lymph % (Auto) % [place] % (Auto) % Eos % (Auto) % Baso % (Auto) % Neut # (Auto) (1.4-6.5) K/uL Lymph # (Auto) (1.2-3.4) K/uL [place] # (Auto) (0.11-0.59) K/uL Eos # (Auto) (0-0.5) K/uL Baso # (Auto) (0-0.2) K/uL Immature Gran # (Auto) (0.00-0.02) K/uL PT (9.0-12.0) Seconds INR (0.9-1.1) APTT (21.0-31.0) Seconds PTT Ratio VBG pH (7.36-7.41) VBG pCO2 (38-50) mmHg VBG pO2 mmHg VBG HCO3 mmol/L VBG O2 Saturation % VBG Base Excess mEq/L Barometric Pressure mm/Hg Sodium (136-145) mmol/L Potassium (3.5-5.1) mmol/L Chloride (98-107) mmol/L Carbon Dioxide (21-32) mmol/L Anion Gap (3-11) BUN (7-18) mg/dl Creatinine (0.6-1.2) mg/dl Est Cr Clr Drug Dosing ml/min Est GFR ( Amer) Est GFR (Non-Af Amer) BUN/Creatinine Ratio (10-20) Glucose (70-99) mg/dl POC Glucose > 600 H* > 600 H* (70-99) mg/dl Estimat Average Glucose mg/dl Hemoglobin A1c (4.5-5.6) % Osmolality (280-300) mOsm/kg Calcium (8.5-10.1) mg/dl Phosphorus (2.5-4.9) mg/dl Magnesium (1.8-2.4) mg/dl Total Bilirubin (0.2-1) mg/dl AST (15-37) U/L ALT (12-78) U/L Alkaline Phosphatase (45-117) U/L Total Creatine Kinase (26-192) U/L Troponin I (0-0.045) ng/ml Total Protein (6.4-8.2) gm/dl Albumin (3.4-5.0) gm/dl Globulin (2.5-4.0) gm/dl Albumin/Globulin Ratio (0.9-2) Lipase (73-393) U/L Beta-Hydroxybutyric Acd (0.2-2.81) mg/dl TSH (0.300-4.500) uIu/ml Urine Color Yellow Urine Appearance Clear (Clear) Urine pH 5.0 (4.5-7.5) Ur Specific [place] 1.034 H (1.000-1.030) Urine Protein 1+ H (Negative) Urine Glucose (UA) 3+ H (Negative) Urine Ketones 2+ H (Negative) Urine Blood Trace H (Negative) Urine Nitrite Negative (Negative) Urine Bilirubin Negative (Negative) Urine Urobilinogen Negative (Negative) Ur Leukocyte Esterase Negative (Negative) Urine WBC (Auto) 1-5 (0-5) /hpf Urine RBC (Auto) 0-4 (0-4) /hpf U Hyaline Cast (Auto) 1-5 (0-5) /lpf U Epithel Cells (Auto) >30 H (0-5) /lpf Urine Bacteria (Auto) Negative (Negative) COVID-19 Eval Order SARS-CoV-2 (PCR) (Negative) Influenza Type A (PCR) (Neg) Influenza Type B (PCR) (Neg) RSV (RT-PCR) (Neg) 11/10/20 11/10/20 11/10/20 Range/Units 14:24 13:30 13:26 WBC (4.8-10.8) K/uL RBC (4.2-5.4) M/uL Hgb (12.0-16.0) g/dL Hct (37-47) % MCV (80-100) fL MCH (25-34) pg MCHC (32-36) g/dL RDW Std Deviation (36.4-46.3) fL RDW Coeff of Tony (11.5-14.5) % Plt Count (130-400) K/uL MPV (7.4-10.4) fL Immature Gran % (Auto) % Neut % (Auto) % Lymph % (Auto) % [place] % (Auto) % Eos % (Auto) % Baso % (Auto) % Neut # (Auto) (1.4-6.5) K/uL Lymph # (Auto) (1.2-3.4) K/uL [place] # (Auto) (0.11-0.59) K/uL Eos # (Auto) (0-0.5) K/uL Baso # (Auto) (0-0.2) K/uL Immature Gran # (Auto) (0.00-0.02) K/uL PT (9.0-12.0) Seconds INR (0.9-1.1) APTT (21.0-31.0) Seconds PTT Ratio VBG pH (7.36-7.41) VBG pCO2 (38-50) mmHg VBG pO2 mmHg VBG HCO3 mmol/L VBG O2 Saturation % VBG Base Excess mEq/L Barometric Pressure mm/Hg Sodium 137 (136-145) mmol/L Potassium 4.4 (3.5-5.1) mmol/L Chloride 99 (98-107) mmol/L Carbon Dioxide 22 (21-32) mmol/L Anion Gap 16.0 H (3-11) BUN 39 H (7-18) mg/dl Creatinine 1.96 H (0.6-1.2) mg/dl Est Cr Clr Drug Dosing 22.8 ml/min Est GFR ( Amer) 28.5 Est GFR (Non-Af Amer) 24.6 BUN/Creatinine Ratio 19.8 (10-20) Glucose 757 H* (70-99) mg/dl POC Glucose > 600 H* (70-99) mg/dl Estimat Average Glucose mg/dl Hemoglobin A1c (4.5-5.6) % Osmolality 347 H (280-300) mOsm/kg Calcium 8.9 (8.5-10.1) mg/dl Phosphorus 4.4 (2.5-4.9) mg/dl Magnesium 2.1 (1.8-2.4) mg/dl Total Bilirubin 0.6 (0.2-1) mg/dl AST 53 H (15-37) U/L ALT 19 (12-78) U/L Alkaline Phosphatase 235 H (45-117) U/L Total Creatine Kinase 792 H (26-192) U/L Troponin I < 0.015 (0-0.045) ng/ml Total Protein 6.8 (6.4-8.2) gm/dl Albumin 3.3 L (3.4-5.0) gm/dl Globulin 3.5 (2.5-4.0) gm/dl Albumin/Globulin Ratio 0.9 (0.9-2) Lipase 95 (73-393) U/L Beta-Hydroxybutyric Acd 49.86 H (0.2-2.81) mg/dl TSH 2.460 (0.300-4.500) uIu/ml Urine Color Urine Appearance (Clear) Urine pH (4.5-7.5) Ur Specific [place] (1.000-1.030) Urine Protein (Negative) Urine Glucose (UA) (Negative) Urine Ketones (Negative) Urine Blood (Negative) Urine Nitrite (Negative) Urine Bilirubin (Negative) Urine Urobilinogen (Negative) Ur Leukocyte Esterase (Negative) Urine WBC (Auto) (0-5) /hpf Urine RBC (Auto) (0-4) /hpf U Hyaline Cast (Auto) (0-5) /lpf U Epithel Cells (Auto) (0-5) /lpf Urine Bacteria (Auto) (Negative) COVID-19 Eval Order SARS-CoV-2 (PCR) (Negative) Influenza Type A (PCR) (Neg) Influenza Type B (PCR) (Neg) RSV (RT-PCR) (Neg) 11/10/20 11/10/20 Range/Units 13:26 13:26 WBC 12.22 H (4.8-10.8) K/uL RBC 4.10 L (4.2-5.4) M/uL Hgb 13.3 (12.0-16.0) g/dL Hct 41.5 (37-47) % MCV 101.2 H (80-100) fL MCH 32.4 (25-34) pg MCHC 32.0 (32-36) g/dL RDW Std Deviation 49.1 H (36.4-46.3) fL RDW Coeff of Tony 13.2 (11.5-14.5) % Plt Count 300 (130-400) K/uL MPV 10.1 (7.4-10.4) fL Immature Gran % (Auto) 0.2 % Neut % (Auto) 91.3 % Lymph % (Auto) 3.6 % [place] % (Auto) 4.9 % Eos % (Auto) 0.0 % Baso % (Auto) 0.0 % Neut # (Auto) 11.15 H (1.4-6.5) K/uL Lymph # (Auto) 0.44 L (1.2-3.4) K/uL [place] # (Auto) 0.60 H (0.11-0.59) K/uL Eos # (Auto) 0.00 (0-0.5) K/uL Baso # (Auto) 0.00 (0-0.2) K/uL Immature Gran # (Auto) 0.03 H (0.00-0.02) K/uL PT 10.2 (9.0-12.0) Seconds INR 1.0 (0.9-1.1) APTT 23.8 (21.0-31.0) Seconds PTT Ratio 0.9 VBG pH (7.36-7.41) VBG pCO2 (38-50) mmHg VBG pO2 mmHg VBG HCO3 mmol/L VBG O2 Saturation % VBG Base Excess mEq/L Barometric Pressure mm/Hg Sodium (136-145) mmol/L Potassium (3.5-5.1) mmol/L Chloride (98-107) mmol/L Carbon Dioxide (21-32) mmol/L Anion Gap (3-11) BUN (7-18) mg/dl Creatinine (0.6-1.2) mg/dl Est Cr Clr Drug Dosing ml/min Est GFR ( Amer) Est GFR (Non-Af Amer) BUN/Creatinine Ratio (10-20) Glucose (70-99) mg/dl POC Glucose (70-99) mg/dl Estimat Average Glucose mg/dl Hemoglobin A1c (4.5-5.6) % Osmolality (280-300) mOsm/kg Calcium (8.5-10.1) mg/dl Phosphorus (2.5-4.9) mg/dl Magnesium (1.8-2.4) mg/dl Total Bilirubin (0.2-1) mg/dl AST (15-37) U/L ALT (12-78) U/L Alkaline Phosphatase (45-117) U/L Total Creatine Kinase (26-192) U/L Troponin I (0-0.045) ng/ml Total Protein (6.4-8.2) gm/dl Albumin (3.4-5.0) gm/dl Globulin (2.5-4.0) gm/dl Albumin/Globulin Ratio (0.9-2) Lipase (73-393) U/L Beta-Hydroxybutyric Acd (0.2-2.81) mg/dl TSH (0.300-4.500) uIu/ml Urine Color Urine Appearance (Clear) Urine pH (4.5-7.5) Ur Specific [place] (1.000-1.030) Urine Protein (Negative) Urine Glucose (UA) (Negative) Urine Ketones (Negative) Urine Blood (Negative) Urine Nitrite (Negative) Urine Bilirubin (Negative) Urine Urobilinogen (Negative) Ur Leukocyte Esterase (Negative) Urine WBC (Auto) (0-5) /hpf Urine RBC (Auto) (0-4) /hpf U Hyaline Cast (Auto) (0-5) /lpf U Epithel Cells (Auto) (0-5) /lpf Urine Bacteria (Auto) (Negative) COVID-19 Eval Order SARS-CoV-2 (PCR) (Negative) Influenza Type A (PCR) (Neg) Influenza Type B (PCR) (Neg) RSV (RT-PCR) (Neg) PG Care Time/CCT Total # of Minutes Spent Total Time Spent with Patient: Total time spent is greater than 50% in coordination of care (as documented) at patient's floor/unit and/or counseling patient: Coding Level of Care Code 46800 Subseq Hosp Care Lvl 3 Diagnoses Fall W19.XXXA Encounter type: initial encounter Hyperglycemia R73.9 Chronic kidney disease N18.9 Hyperosmolar hyperglycemic state (HHS) E11.00; E11.65 Rhabdomyolysis T79.6XXA Encounter type: initial encounter Rhabdomyolysis type: traumatic Fall from slipping on wet surface W01.0XXA Encounter type: initial encounter Bilateral edema of lower extremity R60.0 Cellulitis L03.116 Laterality: left Site of cellulitis: extremity Site of cellulitis of extremity: lower extremity (1) Fall Encounter type: initial encounter Qualified Code(s): W19.XXXA - Unspecified fall, initial encounter (2) Rhabdomyolysis Encounter type: initial encounter Rhabdomyolysis type: traumatic Qualified Code(s): T79.6XXA - Traumatic ischemia of muscle, initial encounter (3) Fall from slipping on wet surface Encounter type: initial encounter Qualified Code(s): W01.0XXA - Fall on same level from slipping, tripping and stumbling without subsequent striking against object, initial encounter (4) Cellulitis Laterality: left Site of cellulitis: extremity Site of cellulitis of extremity: lower extremity Qualified Code(s): L03.116 - Cellulitis of left lower limb
[2020-11-11] MEDS: INSULIN ASPART 100 UNITS/ML 3 ML PEN SC SCH ×4 (08:27→21:33)
[2020-11-11] MEDS: CALCIUM 600MG + VIT D 400 IU TAB PO SCH (08:44)
[2020-11-11] MEDS: lamoTRIgine 100 MG TAB PO SCH ×2 (08:45→20:04)
[2020-11-11] MEDS: ENOXAPARIN INJ 30 MG/0.3 ML SYR SQ SCH (08:45)
[2020-11-11] MEDS ORDERED: ACETAMINOPHEN 500 MG TAB PO SCH (09:00)
[2020-11-11 09:09] LABS: Albumin Level 2.5 gm/dl (3.4-5.0); Bilirubin Direct 0.1 mg/dl (0-0.2); Bilirubin,Total 0.5 mg/dl (0.2-1); Total Protein 5.4 gm/dl (6.4-8.2)
[2020-11-11 09:33] LABS: Folate (Folic Acid) 3.1 ng/ml (>5.38)
--- NOTE | 2020-11-11 11:00 | CT Scan Report ---
CT OF THE LEFT HIP WITHOUT CONTRAST CLINICAL HISTORY: [Pain following fall. COMPARISON STUDY: Pelvis and bilateral hip radiographs November 10, 2020. TECHNIQUE: Axial images of the left hip were obtained without IV contrast. Sagittal and coronal recon structions were viewed. Automated exposure control was utilized for the study. A dose lowering techn ique was utilized adhering to the principles of ALARA. FINDINGS: Alignment of the left hip is anatomic. Joint space narrowing and osteophytosis of the left hip. This is consistent with osteoarthritis. No acute fracture is noted. Note is made of old, healed fractures of the left inferior and superior pubic rami. No suspicious osseous lesion is noted. There is no evidence for avascular necrosis of the left femoral head. No hematoma is noted within the soft tissues adjacent to the left hip. IMPRESSION: 1. No acute fracture or dislocation within the left hip. 2. Moderate to severe left hip osteoarthritis. 3. Old left pubic ring fractures. ACT 112: Negative or not required by law. Electronically signed by: Aakash Jaramillo M.D. 11/11/2020 10:59 AM
[2020-11-11] MEDS ORDERED: traMADol HCL 50 MG TABLET PO PRN (11:48)
--- NOTE | 2020-11-11 12:32 | CT Scan Report ---
CT hip RT wo con HISTORY: 75 years-old Female R hip pain, s/p fall acute bilateral hip pain status post fall COMPARISON: Pelvis and hip radiographs 11/10/2020, pelvis radiographs 05/03/2020, 05/20/2017 TECHNIQUE: Multiple axial CT images of the right hip were obtained without the use of IV contrast. A dose lowering technique was used consistent with the principals of ALARA. FINDINGS: Beam hardening artifact from right hip total joint arthroplasty limits evaluation of the adjacent tis sues. Chronic lateral positioning of the acetabular component within the acetabulum is unchanged. Het erotopic ossifications of the proximal femur without acute fracture or dislocation identified. No acu te abnormality identified involving the imaged intrapelvic structures. Subcutaneous contusion of the lateral right upper thigh is noted with associated 3.8 x 1.9 cm subcutaneous hematoma. IMPRESSION: 1. Right hip total joint arthroplasty. No evidence of acute fracture, dislocation or acute hardware c omplication. 2. Contusion with small hematoma of the subcutaneous lateral right thigh. ACT 112: Negative or not required by law. The above report was generated using voice recognition software. It may contain grammatical, syntax o r spelling errors. Electronically signed by: Bong Angel M.D. 11/11/2020 12:30 PM
[2020-11-11] MEDS: FOLIC ACID 400 MCG TAB PO SCH (13:25)
[2020-11-11] MEDS: DOXYCYCLINE HYCLATE 100 MG in DEXTROSE 5% 100 ML IV SCH (13:31)
--- NOTE | 2020-11-11 14:57 | Pharmacy Report ---
Pharmacy Glycemic Short Note 2 - Date of Service November 11, 2020 - Glycemic Short BSG Results (Last 24 hours): 11/10/20 11/10/20 11/10/20 15:26 16:33 18:38 Glucose POC Glucose > 600 H* > 600 H* 592 H* 11/10/20 11/10/20 11/10/20 19:45 20:46 21:42 Glucose POC Glucose 488 H* 400 H* 338 H* 11/10/20 11/10/20 11/11/20 22:44 23:51 00:38 Glucose POC Glucose 265 H 189 H 208 H 11/11/20 11/11/20 11/11/20 01:45 03:40 04:42 Glucose POC Glucose 178 H 121 H 110 H 11/11/20 11/11/20 11/11/20 05:45 05:52 06:42 Glucose 119 H POC Glucose 156 H 167 H 11/11/20 11/11/20 11/11/20 07:46 08:16 09:42 Glucose POC Glucose 174 H 199 H 164 H 11/11/20 11/11/20 11/11/20 12:04 12:49 13:53 Glucose POC Glucose 111 H 98 126 H OUTPATIENT ANTIDIABETIC REGIMEN: * Metformin 500mg PO qAM * HbA1c: >16.9% (11/11/20) ASSESSMENT: * Ms Magdaleno is a 75yo diabetic woman, admitted last evening with hyperglycemia. * IV insulin infusion was initiated on admission for BSG >600mg/dL. * Basal insulin initiated this morning in order to transition from IV to SQ insulin. Dextrose was removed from IVF this afternoon to assist with this transition. PLAN FOR INPATIENT GLYCEMIC CONTROL: * Hold outpatient oral diabetes medications * Basal insulin * Lantus 30 units SQ x1 dose this morning, plus 10 units this afternoon -- insulin gtt has been titrating down since AM dose given, but still requiring >2 units/hr. Give additional Lantus and then stop IV insulin ~6 hours after second Lantus dose given (or when instructed to hold via Insulin Infusion Adjustment Calculator, whichever is sooner). * Anticipate ~15 units SQ BID starting tomorrow * Bolus insulin * NovoLog per scale ACHS or Q6hrs while NPO * Goal Range: Low 110 mg/dL - High 140 mg/dL * Correction Factor: 30 mg/dL/unit * Nutritional / Prandial insulin per carb ratio of 1 unit per 10 grams CHO consumed PLAN FOR DISCHARGE: * HbA1c: >16.9% * This indicates extremely poorly controlled DM as an outpt. * CDE consult has been placed. * Expect that patient may require the addition of insulin on discharge. More to follow as admission progresses.
[2020-11-11] MEDS: SODIUM CHLOR 0.45% + 20MEQ KCL 20 MEQ/1,000 ML BAG IV SCH ×2 (15:09→23:05)
--- NOTE | 2020-11-11 16:07 | Ultrasound Report ---
BILATERAL LOWER EXTREMITY VENOUS DOPPLER HISTORY: fall, leg pain, swelling COMPARISON STUDY: None. FINDINGS: There is normal compressibility, flow, and augmentation within the bilateral lower extremit y deep venous systems. IMPRESSION: No DVT within the right or left lower extremity. ACT 112: Negative or not required by law. Electronically signed by: Golden Harris M.D. 11/11/2020 4:05 PM
[2020-11-11 18:45] LABS: Appearance Urine Clear (Clear); Bilirubin Urine Negative (Negative); Blood Urine 2+ (Negative); Color Urine Yellow; Glucose Urine UA Negative (Negative); Ketones Urine Negative (Negative); Leukocyte Esterase Urine 3+ (Negative); Nitrite Urine Negative (Negative); Protein Urine Negative (Negative); Specific Gravity Urine 1.011 (1.000-1.030); Urobilinogen Urine Negative (Negative); pH Urine 5.5 (4.5-7.5)
[2020-11-11 18:57] LABS: WBC Urine Automated >30 /hpf (0-5)
[2020-11-11 18:58] LABS: Bacteria Urine Automated 3+ (Negative)
[2020-11-11] MEDS: ZONISAMIDE PO SCH (20:04)
[2020-11-11] MEDS ORDERED: Nursing to Pharmacy Communication SCH (21:30)
[2020-11-11] MEDS: INSULIN REGULAR 250 UNITS in SODIUM CHLORIDE 0.9% 247.5 ML IV SCH (21:32)
[2020-11-12] MEDS: DOXYCYCLINE HYCLATE 100 MG in DEXTROSE 5% 100 ML IV SCH ×2 (00:40→14:48)
[2020-11-12 05:25] LABS: Basophils # (auto) 0.01 K/uL (0-0.2); Basophils % (auto) 0.1 %; Eosinophils # (auto) 0.26 K/uL (0-0.5); Eosinophils % (auto) 2.5 %; Hematocrit (blood only) 34.1 % (37-47); Hemoglobin 11.2 g/dL (12.0-16.0); Immature Granulocytes # (auto) 0.03 K/uL (0.00-0.02); Immature Granulocytes % (auto) 0.3 %; Lymphocytes # (auto) 2.26 K/uL (1.2-3.4); Lymphocytes % (auto) 21.6 %; Mean Corpuscular Hgb Conc 32.8 g/dL (32-36); Mean Corpuscular Volume 97.4 fL (80-100); Mean Platelet Volume 9.4 fL (7.4-10.4); Monocytes # (auto) 0.66 K/uL (0.11-0.59); Monocytes % (auto) 6.3 %; Neutrophils # (auto) 7.24 K/uL (1.4-6.5); Neutrophils % (auto) 69.2 %; Platelet Count 230 K/uL (130-400); RDW Coefficient of Variation 12.9 % (11.5-14.5); White Blood Count 10.46 K/uL (4.8-10.8)
[2020-11-12 05:56] LABS: Albumin Level 2.5 gm/dl (3.4-5.0); BUN Creatinine Ratio 23.9 (10-20); Creatinine Clr Calc Pharmacy 30.5 ml/min; Est GFR (African American) 40.3; Est GFR (Non-African American) 34.8; Magnesium 1.8 mg/dl (1.8-2.4); Potassium 4.7 mmol/L (3.5-5.1)
[2020-11-12 05:59] LABS: Albumin Globulin Ratio 0.9 (0.9-2); Bilirubin,Total 0.4 mg/dl (0.2-1); Globulin 2.7 gm/dl (2.5-4.0); Total Protein 5.2 gm/dl (6.4-8.2)
[2020-11-12] MEDS: SODIUM CHLOR 0.45% + 20MEQ KCL 20 MEQ/1,000 ML BAG IV SCH ×2 (06:25→14:33)
[2020-11-12] MEDS: LEVOTHYROXINE SODIUM 112 MCG TABLET PO SCH (06:25)
[2020-11-12] MEDS: CALCIUM 600MG + VIT D 400 IU TAB PO SCH (09:34)
[2020-11-12] MEDS: FOLIC ACID 400 MCG TAB PO SCH (09:35)
[2020-11-12] MEDS: lamoTRIgine 100 MG TAB PO SCH ×2 (09:35→21:00)
[2020-11-12] MEDS: ENOXAPARIN INJ 30 MG/0.3 ML SYR SQ SCH (09:35)
[2020-11-12] MEDS: INSULIN GLARGINE SOLOSTAR 100 UNITS/ML 3 ML PEN SC SCH ×2 (09:36→21:01)
[2020-11-12] MEDS: INSULIN ASPART 100 UNITS/ML 3 ML PEN SC SCH ×4 (09:37→21:04)
[2020-11-12] MEDS: ZONISAMIDE PO SCH ×2 (09:41→21:00)
--- NOTE | 2020-11-12 09:56 | Hospitalist Progress Note ---
Date of Service November 12, 2020 Assessment & Plan (1) Fall: Admitted for fall on water, but also found to be hyperglycemic with BSGs <600 on admission and placed on insulin gtt, possibly HHS compounded by the fact that she was down for 2 days prior to admission Due to the patient's fall she will be admitted to the hospital and we will proceed as follows: * PT/OT consults with rec for rehab at d/c. Pt would like home health. CM following * CPK 792 on admission and almost wnl on repeat. Continue IVF but will decrease to 75cc/hr * Procalcitonin 0.42 and is currently being treated for cellulitis with Doxycycline (on day 2 of therapy). WBC trended down to wnl from 15. Afebrile * Urine also infected --> collected after 1 x dose of doxy -- patient admits to increased urinary frequency. Will ask nursing to d/c andrea (placed in ER) * While Cr not elevated on admission above "baseline", possible JEFFERSON secondary to infection as Cr now improved to below baseline with IVF * --> Start ceftriaxone. Prelim culture gram negative bacilli * US Dopplers NEGATIVE for DVT * Tramadol for pain -- CT with contusion/hematoma but without acute fx to hips * Monitor electrolytes and replace as needed Plan to switch to PO abx and possible d/c tomorrow. Will need diabetic education and insulin at discharge. A1c >16.9. DE gave patient glucometer (2) UTI (urinary tract infection): * Andrea placed in ER, however patient did report increase urinary frequency prior to fall over the past week * Prelim with gram negative bacilli * Start ceftriaxone and follow cx/s (3) Cellulitis: * Doxycycline - day 2 of therapy - continue * Patient with chronic lymphedema as well, however had swollen/warm/red b/l LE yesterday and was started on tx with elevated WBC to 15. Also with UTI as above being tx with rocephin * Improving -- continue to monitor * Dopplers NEGATIVE for DVT (4) Hyperglycemia: * BSGs <600 on admission and patient started on insulin gtt. 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 IVF as above Seizures Noted. Follows locally with Dr. Castellanos. Continue home lamictal, zonegran Folate levels and B12 added to Am blood given MCV >100 Folate low -- started on replacement and discussed with patient -- to continue at discharge Hypothyroidism TSH 2.4 Continue home levothyroxine 112mcg daily Hyponatremia Low at 131 yesterday -- improved to 135 on AM labs. IVF as above BMP in AM DVT Prophylaxis Lovenox Dispo: possible d/c tomorrow Admission and Anticipated Discharge Date Admission Date: November 10, 2020 Subjective Patient evaluated this afternoon. Feeling much better today. Overall achiness improved. Sitting at the side of the bed eating lunch. Still with hip pain, but controlled with ordered medications. Worked with therapy and reviewed recommendations for rehab at discharge, however patient would like home with therapy to be arranged. Will ask CM to assist. Discussed redness/swelling in her legs and started treatment for cellulitis yesterday. Patient feels pain and swelling have decreased, redness as well. Much clearer during conversation today and states she did have increased urinary frequency prior to admission and is wondering if that could be a symptom of the UTI as we discussed findings and will start on Rocephin. Patient had glucometer dropped off by DE earlier, but states she is only really agreeable to trying insulin once daily as she does not like needles. 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 No fever, chills, chest pain, shortness of breath, abdominal pain, nausea, vomiting. She is trying to get in with Dr. Hood at [facility] from Dr. Israel and has follow up appt in December. Will see if we can get her in sooner for follow up post-discharge. Review of Systems Review of Systems: All systems reviewed & are unremarkable except as noted in HPI & below Physical Exam Physical Exam: No noted head trauma Constitutional: well developed, well nourished, + obese and comfortable; no acute distress Eyes: no conjunctival abnormality ENMT: Ears: no hearing impairment Neck: trachea midline Respiratory: normal respiratory effort; no respiratory distress and no labored breathing Cardiovascular: Rate/Rhythm: regular rate and regular rhythm Extremities: + edema (b/l, tender) Gastrointestinal (Abdomen): Inspection/Auscultation: abdomen not distended Percussion/Palpation: abdomen soft; abdomen nontender Musculoskeletal: Calves tender to palpation -- R>L (less today) edema, non-pitting with erythema and warmth --> improving R scar from prior hip surgery ecchymosis to R buttock-- tender No calf tenderness or foot wounds. Patient had a well-healed scar over her right hip from a previous hip surgery. Pain noted with palpation of the right hip Skin: hematoma to R buttock Neurologic: CN's II-XI intact bilaterally and moves all extremities Psychiatric: Orientation: alert and oriented x 3 Genitourinary: andrea draining clear yellow urine Lymphatic: no cervical or axillary lymphadenopathy Results & Data Results & Data ([facility]) Vital Signs (Past 12 Hours) Vital Signs Temp Pulse Resp BP Pulse Ox 11/12/20 07:25 36.6 C 84 16 122/75 93 11/11/20 23:06 36.9 C 90 16 107/59 L 95 Laboratory Results 11/12/20 11/12/20 11/12/20 Range/Units 12:07 08:06 05:13 WBC (4.8-10.8) K/uL RBC (4.2-5.4) M/uL Hgb (12.0-16.0) g/dL Hct (37-47) % MCV (80-100) fL MCH (25-34) pg MCHC (32-36) g/dL RDW Std Deviation (36.4-46.3) fL RDW Coeff of Tony (11.5-14.5) % Plt Count (130-400) K/uL MPV (7.4-10.4) fL Immature Gran % (Auto) % Neut % (Auto) % Lymph % (Auto) % [place] % (Auto) % Eos % (Auto) % Baso % (Auto) % Neut # (Auto) (1.4-6.5) K/uL Lymph # (Auto) (1.2-3.4) K/uL [place] # (Auto) (0.11-0.59) K/uL Eos # (Auto) (0-0.5) K/uL Baso # (Auto) (0-0.2) K/uL Immature Gran # (Auto) (0.00-0.02) K/uL Sodium (136-145) mmol/L Potassium (3.5-5.1) mmol/L Chloride (98-107) mmol/L Carbon Dioxide (21-32) mmol/L Anion Gap (3-11) BUN (7-18) mg/dl Creatinine (0.6-1.2) mg/dl Est Cr Clr Drug Dosing ml/min Est GFR ( Amer) Est GFR (Non-Af Amer) BUN/Creatinine Ratio (10-20) Glucose (70-99) mg/dl POC Glucose 279 H 151 H (70-99) mg/dl Calcium (8.5-10.1) mg/dl Magnesium (1.8-2.4) mg/dl Total Bilirubin (0.2-1) mg/dl AST (15-37) U/L ALT (12-78) U/L Alkaline Phosphatase (45-117) U/L Total Creatine Kinase 323 H (26-192) U/L Total Protein (6.4-8.2) gm/dl Albumin (3.4-5.0) gm/dl Globulin (2.5-4.0) gm/dl Albumin/Globulin Ratio (0.9-2) Urine Color Urine Appearance (Clear) Urine pH (4.5-7.5) Ur Specific [place] (1.000-1.030) Urine Protein (Negative) Urine Glucose (UA) (Negative) Urine Ketones (Negative) Urine Blood (Negative) Urine Nitrite (Negative) Urine Bilirubin (Negative) Urine Urobilinogen (Negative) Ur Leukocyte Esterase (Negative) Urine WBC (Auto) (0-5) /hpf Urine RBC (Auto) (0-4) /hpf U Hyaline Cast (Auto) (0-5) /lpf U Epithel Cells (Auto) (0-5) /lpf Urine Bacteria (Auto) (Negative) 11/12/20 11/12/20 11/11/20 Range/Units 05:13 05:13 21:07 WBC 10.46 (4.8-10.8) K/uL RBC 3.50 L (4.2-5.4) M/uL Hgb 11.2 L (12.0-16.0) g/dL Hct 34.1 L (37-47) % MCV 97.4 (80-100) fL MCH 32.0 (25-34) pg MCHC 32.8 (32-36) g/dL RDW Std Deviation 46.0 (36.4-46.3) fL RDW Coeff of Tony 12.9 (11.5-14.5) % Plt Count 230 (130-400) K/uL MPV 9.4 (7.4-10.4) fL Immature Gran % (Auto) 0.3 % Neut % (Auto) 69.2 % Lymph % (Auto) 21.6 % [place] % (Auto) 6.3 % Eos % (Auto) 2.5 % Baso % (Auto) 0.1 % Neut # (Auto) 7.24 H (1.4-6.5) K/uL Lymph # (Auto) 2.26 (1.2-3.4) K/uL [place] # (Auto) 0.66 H (0.11-0.59) K/uL Eos # (Auto) 0.26 (0-0.5) K/uL Baso # (Auto) 0.01 (0-0.2) K/uL Immature Gran # (Auto) 0.03 H (0.00-0.02) K/uL Sodium 135 L (136-145) mmol/L Potassium 4.7 (3.5-5.1) mmol/L Chloride 107 (98-107) mmol/L Carbon Dioxide 25 (21-32) mmol/L Anion Gap 3.0 (3-11) BUN 35 H (7-18) mg/dl Creatinine 1.47 H (0.6-1.2) mg/dl Est Cr Clr Drug Dosing 30.5 ml/min Est GFR ( Amer) 40.3 Est GFR (Non-Af Amer) 34.8 BUN/Creatinine Ratio 23.9 H (10-20) Glucose 144 H (70-99) mg/dl POC Glucose 127 H (70-99) mg/dl Calcium 8.0 L (8.5-10.1) mg/dl Magnesium 1.8 (1.8-2.4) mg/dl Total Bilirubin 0.4 (0.2-1) mg/dl AST 37 (15-37) U/L ALT 13 (12-78) U/L Alkaline Phosphatase 145 H (45-117) U/L Total Creatine Kinase (26-192) U/L Total Protein 5.2 L (6.4-8.2) gm/dl Albumin 2.5 L (3.4-5.0) gm/dl Globulin 2.7 (2.5-4.0) gm/dl Albumin/Globulin Ratio 0.9 (0.9-2) Urine Color Urine Appearance (Clear) Urine pH (4.5-7.5) Ur Specific [place] (1.000-1.030) Urine Protein (Negative) Urine Glucose (UA) (Negative) Urine Ketones (Negative) Urine Blood (Negative) Urine Nitrite (Negative) Urine Bilirubin (Negative) Urine Urobilinogen (Negative) Ur Leukocyte Esterase (Negative) Urine WBC (Auto) (0-5) /hpf Urine RBC (Auto) (0-4) /hpf U Hyaline Cast (Auto) (0-5) /lpf U Epithel Cells (Auto) (0-5) /lpf Urine Bacteria (Auto) (Negative) 11/11/20 11/11/20 11/11/20 Range/Units 20:54 19:59 19:01 WBC (4.8-10.8) K/uL RBC (4.2-5.4) M/uL Hgb (12.0-16.0) g/dL Hct (37-47) % MCV (80-100) fL MCH (25-34) pg MCHC (32-36) g/dL RDW Std Deviation (36.4-46.3) fL RDW Coeff of Tony (11.5-14.5) % Plt Count (130-400) K/uL MPV (7.4-10.4) fL Immature Gran % (Auto) % Neut % (Auto) % Lymph % (Auto) % [place] % (Auto) % Eos % (Auto) % Baso % (Auto) % Neut # (Auto) (1.4-6.5) K/uL Lymph # (Auto) (1.2-3.4) K/uL [place] # (Auto) (0.11-0.59) K/uL Eos # (Auto) (0-0.5) K/uL Baso # (Auto) (0-0.2) K/uL Immature Gran # (Auto) (0.00-0.02) K/uL Sodium (136-145) mmol/L Potassium (3.5-5.1) mmol/L Chloride (98-107) mmol/L Carbon Dioxide (21-32) mmol/L Anion Gap (3-11) BUN (7-18) mg/dl Creatinine (0.6-1.2) mg/dl Est Cr Clr Drug Dosing ml/min Est GFR ( Amer) Est GFR (Non-Af Amer) BUN/Creatinine Ratio (10-20) Glucose (70-99) mg/dl POC Glucose 129 H 147 H 192 H (70-99) mg/dl Calcium (8.5-10.1) mg/dl Magnesium (1.8-2.4) mg/dl Total Bilirubin (0.2-1) mg/dl AST (15-37) U/L ALT (12-78) U/L Alkaline Phosphatase (45-117) U/L Total Creatine Kinase (26-192) U/L Total Protein (6.4-8.2) gm/dl Albumin (3.4-5.0) gm/dl Globulin (2.5-4.0) gm/dl Albumin/Globulin Ratio (0.9-2) Urine Color Urine Appearance (Clear) Urine pH (4.5-7.5) Ur Specific [place] (1.000-1.030) Urine Protein (Negative) Urine Glucose (UA) (Negative) Urine Ketones (Negative) Urine Blood (Negative) Urine Nitrite (Negative) Urine Bilirubin (Negative) Urine Urobilinogen (Negative) Ur Leukocyte Esterase (Negative) Urine WBC (Auto) (0-5) /hpf Urine RBC (Auto) (0-4) /hpf U Hyaline Cast (Auto) (0-5) /lpf U Epithel Cells (Auto) (0-5) /lpf Urine Bacteria (Auto) (Negative) 11/11/20 11/11/20 11/11/20 Range/Units 18:35 18:00 17:00 WBC (4.8-10.8) K/uL RBC (4.2-5.4) M/uL Hgb (12.0-16.0) g/dL Hct (37-47) % MCV (80-100) fL MCH (25-34) pg MCHC (32-36) g/dL RDW Std Deviation (36.4-46.3) fL RDW Coeff of Tony (11.5-14.5) % Plt Count (130-400) K/uL MPV (7.4-10.4) fL Immature Gran % (Auto) % Neut % (Auto) % Lymph % (Auto) % [place] % (Auto) % Eos % (Auto) % Baso % (Auto) % Neut # (Auto) (1.4-6.5) K/uL Lymph # (Auto) (1.2-3.4) K/uL [place] # (Auto) (0.11-0.59) K/uL Eos # (Auto) (0-0.5) K/uL Baso # (Auto) (0-0.2) K/uL Immature Gran # (Auto) (0.00-0.02) K/uL Sodium (136-145) mmol/L Potassium (3.5-5.1) mmol/L Chloride (98-107) mmol/L Carbon Dioxide (21-32) mmol/L Anion Gap (3-11) BUN (7-18) mg/dl Creatinine (0.6-1.2) mg/dl Est Cr Clr Drug Dosing ml/min Est GFR ( Amer) Est GFR (Non-Af Amer) BUN/Creatinine Ratio (10-20) Glucose (70-99) mg/dl POC Glucose 170 H 208 H (70-99) mg/dl Calcium (8.5-10.1) mg/dl Magnesium (1.8-2.4) mg/dl Total Bilirubin (0.2-1) mg/dl AST (15-37) U/L ALT (12-78) U/L Alkaline Phosphatase (45-117) U/L Total Creatine Kinase (26-192) U/L Total Protein (6.4-8.2) gm/dl Albumin (3.4-5.0) gm/dl Globulin (2.5-4.0) gm/dl Albumin/Globulin Ratio (0.9-2) Urine Color Yellow Urine Appearance Clear (Clear) Urine pH 5.5 (4.5-7.5) Ur Specific [place] 1.011 (1.000-1.030) Urine Protein Negative (Negative) Urine Glucose (UA) Negative (Negative) Urine Ketones Negative (Negative) Urine Blood 2+ H (Negative) Urine Nitrite Negative (Negative) Urine Bilirubin Negative (Negative) Urine Urobilinogen Negative (Negative) Ur Leukocyte Esterase 3+ H (Negative) Urine WBC (Auto) >30 H (0-5) /hpf Urine RBC (Auto) 5-10 H (0-4) /hpf U Hyaline Cast (Auto) 1-5 (0-5) /lpf U Epithel Cells (Auto) 10-20 H (0-5) /lpf Urine Bacteria (Auto) 3+ H (Negative) 11/11/20 11/11/20 11/11/20 Range/Units 15:56 14:53 13:53 WBC (4.8-10.8) K/uL RBC (4.2-5.4) M/uL Hgb (12.0-16.0) g/dL Hct (37-47) % MCV (80-100) fL MCH (25-34) pg MCHC (32-36) g/dL RDW Std Deviation (36.4-46.3) fL RDW Coeff of Tony (11.5-14.5) % Plt Count (130-400) K/uL MPV (7.4-10.4) fL Immature Gran % (Auto) % Neut % (Auto) % Lymph % (Auto) % [place] % (Auto) % Eos % (Auto) % Baso % (Auto) % Neut # (Auto) (1.4-6.5) K/uL Lymph # (Auto) (1.2-3.4) K/uL [place] # (Auto) (0.11-0.59) K/uL Eos # (Auto) (0-0.5) K/uL Baso # (Auto) (0-0.2) K/uL Immature Gran # (Auto) (0.00-0.02) K/uL Sodium (136-145) mmol/L Potassium (3.5-5.1) mmol/L Chloride (98-107) mmol/L Carbon Dioxide (21-32) mmol/L Anion Gap (3-11) BUN (7-18) mg/dl Creatinine (0.6-1.2) mg/dl Est Cr Clr Drug Dosing ml/min Est GFR ( Amer) Est GFR (Non-Af Amer) BUN/Creatinine Ratio (10-20) Glucose (70-99) mg/dl POC Glucose 205 H 179 H 126 H (70-99) mg/dl Calcium (8.5-10.1) mg/dl Magnesium (1.8-2.4) mg/dl Total Bilirubin (0.2-1) mg/dl AST (15-37) U/L ALT (12-78) U/L Alkaline Phosphatase (45-117) U/L Total Creatine Kinase (26-192) U/L Total Protein (6.4-8.2) gm/dl Albumin (3.4-5.0) gm/dl Globulin (2.5-4.0) gm/dl Albumin/Globulin Ratio (0.9-2) Urine Color Urine Appearance (Clear) Urine pH (4.5-7.5) Ur Specific [place] (1.000-1.030) Urine Protein (Negative) Urine Glucose (UA) (Negative) Urine Ketones (Negative) Urine Blood (Negative) Urine Nitrite (Negative) Urine Bilirubin (Negative) Urine Urobilinogen (Negative) Ur Leukocyte Esterase (Negative) Urine WBC (Auto) (0-5) /hpf Urine RBC (Auto) (0-4) /hpf U Hyaline Cast (Auto) (0-5) /lpf U Epithel Cells (Auto) (0-5) /lpf Urine Bacteria (Auto) (Negative) Diagnostic Findings BILATERAL LOWER EXTREMITY VENOUS DOPPLER HISTORY: fall, leg pain, swelling COMPARISON STUDY: None. FINDINGS: There is normal compressibility, flow, and augmentation within the bilateral lower extremity deep venous systems. IMPRESSION: No DVT within the right or left lower extremity. CT hip RT wo con HISTORY: 75 years-old Female R hip pain, s/p fall acute bilateral hip pain status post fall COMPARISON: Pelvis and hip radiographs 11/10/2020, pelvis radiographs 05/03/2020, 05/20/2017 TECHNIQUE: Multiple axial CT images of the right hip were obtained without the use of IV contrast. A dose lowering technique was used consistent with the principals of ALARA. FINDINGS: Beam hardening artifact from right hip total joint arthroplasty limits evaluation of the adjacent tissues. Chronic lateral positioning of the acetabular component within the acetabulum is unchanged. Heterotopic ossifications of the proximal femur without acute fracture or dislocation identified. No acute abnormality identified involving the imaged intrapelvic structures. Subcutaneous contusion of the lateral right upper thigh is noted with associated 3.8 x 1.9 cm subcutaneous hematoma. IMPRESSION: 1. Right hip total joint arthroplasty. No evidence of acute fracture, dislocation or acute hardware complication. 2. Contusion with small hematoma of the subcutaneous lateral right thigh. PG Care Time/CCT Total # of Minutes Spent Total Time Spent with Patient: Total time spent is greater than 50% in coordination of care (as documented) at patient's floor/unit and/or counseling patient: Coding Level of Care Code 76827 Subseq Hosp Care Lvl 3 Diagnoses Fall W19.XXXA Encounter type: initial encounter UTI (urinary tract infection) N39.0 Cellulitis L03.90 Hyperglycemia R73.9 Chronic kidney disease N18.9 Rhabdomyolysis M62.82 (1) Fall Encounter type: initial encounter Qualified Code(s): W19.XXXA - Unspecified fall, initial encounter
--- NOTE | 2020-11-12 14:19 | Pharmacy Report ---
Pharmacy Glycemic Short Note 2 - Date of Service November 12, 2020 - Glycemic Short BSG Results (Last 24 hours): 11/11/20 11/11/20 11/11/20 14:53 15:56 17:00 Glucose POC Glucose 179 H 205 H 208 H 11/11/20 11/11/20 11/11/20 18:00 19:01 19:59 Glucose POC Glucose 170 H 192 H 147 H 11/11/20 11/11/20 11/12/20 20:54 21:07 05:13 Glucose 144 H POC Glucose 129 H 127 H 11/12/20 11/12/20 08:06 12:07 Glucose POC Glucose 151 H 279 H OUTPATIENT ANTIDIABETIC REGIMEN: * Metformin 500mg PO qAM * HbA1c: >16.9% (11/11/20) ASSESSMENT: 11/12/20: * Fasting BSG was close to being in range this morning, so basal insulin needs appear to be nearly met. * Pre-lunch BSG, however, was elevated. Novolog parameters tightened to provide additional prandial coverage. * Will continue to adjust as needed. 11/11/20 * Ms Magdaleno is a 75yo diabetic woman, admitted last evening with hyperglycemia. * IV insulin infusion was initiated on admission for BSG >600mg/dL. * Basal insulin initiated this morning in order to transition from IV to SQ insulin. Dextrose was removed from IVF this afternoon to assist with this transition. PLAN FOR INPATIENT GLYCEMIC CONTROL: * Hold outpatient oral diabetes medications * Basal insulin * Lantus 15 units SQ BID * Bolus insulin * NovoLog per scale ACHS or Q6hrs while NPO * Goal Range: Low 110 mg/dL - High 140 mg/dL * Correction Factor: 25 mg/dL/unit * Nutritional / Prandial insulin per carb ratio of 1 unit per 8 grams CHO consumed PLAN FOR DISCHARGE: * HbA1c: >16.9% * This indicates extremely poorly controlled DM as an outpt. * CDE consult has been placed. * Expect that patient may require the addition of insulin on discharge. More to follow as admission progresses.
[2020-11-12] MEDS: cefTRIAXone SODIUM 1,000 MG in DEXTROSE 5% 50 ML IV SCH (14:33)
[2020-11-12] MEDS: ACETAMINOPHEN 500 MG TAB PO PRN (23:53)
[2020-11-13] MEDS: SODIUM CHLOR 0.45% + 20MEQ KCL 20 MEQ/1,000 ML BAG IV SCH (06:07)
[2020-11-13] MEDS: LEVOTHYROXINE SODIUM 112 MCG TABLET PO SCH (06:12)
[2020-11-13 06:59] LABS: Hematocrit (blood only) 35.4 % (37-47); Hemoglobin 11.5 g/dL (12.0-16.0); Mean Corpuscular Hgb Conc 32.5 g/dL (32-36); Mean Corpuscular Volume 98.6 fL (80-100); Mean Platelet Volume 9.8 fL (7.4-10.4); Platelet Count 253 K/uL (130-400); RDW Coefficient of Variation 12.8 % (11.5-14.5); RDW Standard Deviation 46.4 fL (36.4-46.3); Red Blood Count 3.59 M/uL (4.2-5.4)
[2020-11-13 07:33] LABS: Albumin Level 2.6 gm/dl (3.4-5.0); BUN Creatinine Ratio 18.2 (10-20); Calcium 8.2 mg/dl (8.5-10.1); Creatinine Clr Calc Pharmacy 26.8 ml/min; Est GFR (African American) 34.6; Est GFR (Non-African American) 29.8; Magnesium 1.7 mg/dl (1.8-2.4); Potassium 4.6 mmol/L (3.5-5.1)
[2020-11-13 07:36] LABS: Albumin Globulin Ratio 0.8 (0.9-2); Bilirubin,Total 0.3 mg/dl (0.2-1); Globulin 3.1 gm/dl (2.5-4.0); Total Protein 5.7 gm/dl (6.4-8.2)
[2020-11-13] MEDS: INSULIN ASPART 100 UNITS/ML 3 ML PEN SC SCH ×2 (08:47→13:01)
[2020-11-13] MEDS: CALCIUM 600MG + VIT D 400 IU TAB PO SCH (08:47)
[2020-11-13] MEDS: lamoTRIgine 100 MG TAB PO SCH (08:48)
[2020-11-13] MEDS: FOLIC ACID 400 MCG TAB PO SCH (08:48)
[2020-11-13] MEDS: ENOXAPARIN INJ 30 MG/0.3 ML SYR SQ SCH (08:48)
[2020-11-13] MEDS: ZONISAMIDE PO SCH (08:49)
[2020-11-13] MEDS ORDERED: INSULIN GLARGINE SOLOSTAR 100 UNITS/ML 3 ML PEN SC SCH (09:00)
--- NOTE | 2020-11-13 09:28 | Hospitalist Progress Note ---
Date of Service November 13, 2020 Assessment & Plan Admission and Anticipated Discharge Date Admission Date: November 10, 2020 Results & Data Results & Data ([facility]) Vital Signs (Past 12 Hours) Vital Signs Temp Pulse Resp BP Pulse Ox 11/13/20 07:24 36.5 C 72 16 96/61 L 95 11/12/20 23:28 37.1 C 89 14 114/64 95 PG Care Time/CCT Total # of Minutes Spent Total Time Spent with Patient: Total time spent is greater than 50% in coordi nation of care (as documented) at patient's floor/unit and/or counseling patient: Coding
--- NOTE | 2020-11-13 10:22 | Pharmacy Report ---
Pharmacy Glycemic Short Note 2 - Date of Service November 13, 2020 - Glycemic Short BSG Results (Last 24 hours): 11/12/20 11/12/20 11/12/20 12:07 17:05 20:32 Glucose POC Glucose 279 H 237 H 300 H 11/12/20 11/13/20 11/13/20 20:34 05:30 07:57 Glucose 172 H POC Glucose 271 H 181 H OUTPATIENT ANTIDIABETIC REGIMEN: * Metformin 500mg PO qAM * HbA1c: >16.9% (11/11/20) ASSESSMENT: 11/13/20: * Basal insulin transitioned to once-daily dosing this morning. Pt refused her Lantus this morning, but will hopefully agree to take it. RN has agreed to continue to offer her the dose and encourage her to accept it. * BSGs were high throughout the evening yesterday, but patient was refusing to take her Novolog doses. 11/12/20 * Fasting BSG was close to being in range this morning, so basal insulin needs appear to be nearly met. * Pre-lunch BSG, however, was elevated. Novolog parameters tightened to provide additional prandial coverage. * Will continue to adjust as needed. 11/11/20 * Ms Magdaleno is a 75yo diabetic woman, admitted last evening with hyperglycemia. * IV insulin infusion was initiated on admission for BSG >600mg/dL. * Basal insulin initiated this morning in order to transition from IV to SQ insulin. Dextrose was removed from IVF this afternoon to assist with this transition. PLAN FOR INPATIENT GLYCEMIC CONTROL: * Hold outpatient oral diabetes medications * Basal insulin * Lantus 30 units SQ daily (started this morning) * Bolus insulin * NovoLog per scale ACHS or Q6hrs while NPO * Goal Range: Low 110 mg/dL - High 140 mg/dL * Correction Factor: 25 mg/dL/unit * Nutritional / Prandial insulin per carb ratio of 1 unit per 8 grams CHO consumed PLAN FOR DISCHARGE: * HbA1c: >16.9% * This indicates extremely poorly controlled DM as an outpt. * CDE consult has been placed. It sounds like patient may be willing to try once-daily insulin. * Consider Lantus 30 units SQ daily. Dose can be titrated as an outpatient. * With such an extremely high A1c, would aim to improve BSGs/A1c gradually. * Support Patient Self-Management - Healthy Lifestyle (diet, exercise, and smoking cessation) - Disease self-management (SMBG) - Prevention of complications (BP, Lipid goals, Immunizations) - Consider outpatient Diabetes Self-Management Education & Support
--- NOTE | 2020-11-13 11:41 | Discharge Summary ---
Date of Service November 13, 2020 Admission HPI Per Admitting Provider 75-year-old female who resides in an apartment by herself. Patient notes that she fell 2 days ago and was subsequently found by her aide this morning. Patient says the reason she fell if she slipped on water. When questioned about her fall she did not have any preceding chest pain or shortness of breath she did not have any loss of consciousness and denies striking her head. Because of her fall she presented to the emergency department. In the emergency department she underwent a chest x-ray that was negative for CHF or pneumonia. She had bilateral hip x-rays checked that were negative for fractures. She also had a CT scan of her head that was negative for acute intracranial process. Labs revealed a CBC that had a white blood cell count of 12.0 hemoglobin hematocrit platelet count were all noted to be within the normal range. Chemistry profile showed sodium and potassium were normal. BUN and creatinine were 39 and 1.9. Of note her baseline creatinine typically runs 1.7- 2.0. She had elevated CK level of 792 and a slightly elevated alkaline phosphatase level. Urinalysis was negative for infection. The patient was noted to have an elevated glucose level of greater than 600. For this she did receive 7 units of Lantus insulin along with 10 units of Novolin R insulin. It is also noteworthy to mention that this patient had a Andrea catheter placed in the emergency department. Patient notes over the past several weeks she has been feeling well. She denies any fevers shakes or chills. She denies any chest pain or shortness of breath. She claims to be eating well without nausea vomiting or diarrhea. We have been asked to see the patient for admission and she was noted to be in no distress at the time of my interview. Admission Exam Per Admitting Provider Physical Exam: No noted head trauma Constitutional: well developed and well nourished; no acute distress Eyes: no conjunctival abnormality ENMT: Ears: no hearing impairment Neck: trachea midline Respiratory: normal respiratory effort; no respiratory distress and no labored breathing Cardiovascular: Rate/Rhythm: regular rate and regular rhythm Gastrointestinal (Abdomen): Inspection/Auscultation: abdomen not distended Percussion/Palpation: abdomen soft; abdomen nontender No pain with palpation Musculoskeletal: No calf tenderness or foot wounds. Patient had a well- healed scar over her right hip from a previous hip surgery. Pain noted with palpation of the right hip Skin: no rashes, warm and dry Neurologic: CN's II-XI intact bilaterally and moves all extremities Principal Diagnosis Fall, Rhabdo, Cellulitis, UTI Discharge Exam Constitutional well developed, well nourished, + obese and comfortable; no acute distress Eyes no conjunctival abnormality ENMT Ears: no hearing impairment Neck trachea midline Respiratory normal respiratory effort; no respiratory distress and no labored breathing Cardiovascular Rate/Rhythm: regular rate and regular rhythm Extremities: + edema (b/l, tender -- decreased) Gastrointestinal (Abdomen) Inspection/Auscultation: abdomen not distended Percussion/Palpation: abdomen soft; abdomen nontender Musculoskeletal tender to palpation over R hip full ROM no length shortening/internal/externally rotated NVI pulses palpable bilaterally decreased ROM R shoulder d/t prior rotator cuff repair/issues L wrist with significant arthritis, improved ROM Skin erythema, warmth, swelling b/l LE improved. less erythema, warmth, decreased swelling/pain small ulceration to medial L calf, no drainage noted mild erythema b/l buttocks ecchymosis to R buttock Neurologic CN's II-XI intact bilaterally and moves all extremities Psychiatric Orientation: alert and oriented x 3 Lymphatic no cervical or axillary lymphadenopathy Discharge Data Allergies Allergy/AdvReac Type Severity Reaction Status Date / Time omeprazole Allergy Severe throat Verified 11/10/20 14:06 swelling alendronate sodium Allergy Unknown GI SYMPTOMS Verified 11/10/20 14:06 oxytocin Allergy Unknown Nausea and Verified 11/10/20 14:06 vomiting pioglitazone Allergy Unknown Edema BLE Verified 11/10/20 14:06 prednisone Allergy Unknown Nausea and Verified 11/10/20 14:06 vomiting risedronate sodium Allergy Unknown Headache Verified 11/10/20 14:06 and weakness sitagliptin Allergy Unknown Itching Verified 11/10/20 14:06 valproic acid Allergy Unknown Affected Verified 11/10/20 14:06 her memory divalproex sodium Allergy Verified 11/10/20 14:06 [From Depakote] fluoxetine [From Prozac] Allergy Unknown Verified 11/10/20 14:06 codeine AdvReac Unknown NAUSEA/VOMI Verified 11/10/20 14:06 TING morphine AdvReac Unknown nausea/vomi Verified 11/10/20 14:06 ting oxycodone AdvReac Unknown nausea/vomi Verified 11/10/20 14:06 ting Consultations 11/10/20 15:01 ED Decision to Admit Stat 11/10/20 20:23 Consult Case Management - Discharge Planning Routine Ordered Studies 11/10/20 12:55 CT head/brain wo con Stat 11/11/20 09:54 CT hip LT wo con Routine 11/11/20 11:51 CT hip RT wo con Routine 11/11/20 15:30 US venous doppler LE BI Routine Hospital Course (1) Fall: Admitted for fall on water, but also found to be hyperglycemic with BSGs <600 on admission and placed on insulin gtt, possibly HHS compounded by the fact that she was down for 2 days prior to admission * US Dopplers NEGATIVE for DVT * Tramadol for pain-- only received x1 d/t reported itching/allergies * Hip/Pelvis elroy without acute fracture * Shoulder xray without acute fracture * CT hip with contusion/hematoma but without acute fx to hips * Imaging of forearm with degenerative changes, severe arthritis. did have some swelling dorsal soft tissue proximal forearm LEFT, secondary to fall. No acute fracture, dislocatio of foreign body * CT head without acute process * PT/OT consults with rec for rehab at d/c. Pt would like home health. CM following and arranged Rhabdo CPK 792 on admission and was provided IVF with repeat wnl at 190 Cellulitis Improving B/l LE along with some venous insufficiency suspected at baseline Procalcitonin 0.42 and treated for cellulitis with Doxycycline while inpatient but then decision made to transition to 2nd gen cephalosporin to reduce # of abx at discharge -- continued for total 10 days treatment given drastic improvement on 2 days alone WBC 15k on admission and repeat wnl. Continued to be afebrile UTI/Acute Kidney Injury Andrea placed in ER Urine culture collected after 1 x dose of doxy -- patient admits to increased urinary frequency prior to admission. nursing to d/c andrea (placed in ER) While Cr not elevated on admission above "baseline", possible JEFFERSON secondary to infection as Cr now improved to below baseline with IVF --> Started ceftriaxone. Urine culture with klebsiella pneumoniae and was sent on Ceftin to cover for both UTI and cellulitis b/l LE Uncontrolled DM II A1c >16.9. DE gave patient glucometer and patient to check sugars once daily. Discussed at length intermediate consequences of uncontrolled diabetes and patient continued to remain adamant about not wanting to continue with insulin. Decision was made to restart glipizide 10mg daily (previously on but pt stopped due to lack of refills) Will need close outpatient follow-up Dietary changes encouraged -- would like patient to stop/cut back on sugary drinks Set patient up with new PCP through [facility] at her request. Appointment made for next week. (2) UTI (urinary tract infection): see above (3) Cellulitis: see above (4) Hyperglycemia: * BSGs <600 on admission and patient started on insulin gtt to obtain control. Also with anion gap (also now resolved) * Pharmacy consulted for glycemic management * A1c 16.9 -- family life educator consulted * See above * Suspect some rise secondary to dehydration as well, however with A1c <16.9 p atient at significant risk for rehospitalization for DKA/HHS in future if continues to have non-complaince with medications and/or lack of dietary changes (5) Chronic kidney disease: * Patient's renal function is at baseline * Renally dose medications when appropriated We will follow serial labs and make adjustments as needed * Cr improved, back at baseline * HCTZ discontinued given BPs with excellent control * F.u PCP (6) Rhabdomyolysis: Improving. IVF as above Seizures Noted. Follows locally with Dr. Castellanos. Continued home lamictal, zonegran Folate levels and B12 added to Am blood given MCV >100 Folate low -- started on replacement and discussed with patient -- continued at discharge Hypothyroidism TSH 2.4 Continued home levothyroxine 112mcg daily Hyponatremia Low at 131 during admission -- improved to 136 on AM labs. IVF as above for dehydration with resolution DVT Prophylaxis Lovenox while inpatient Discharged to senior apartments with daughter this afternoon. Caregivers to arrive tomorrow and daughter to stay with her this evening. CM assisted with arranging home therapy per patient's wishes. Total Time Total Time Spent Total Time Spent (In Minutes): 70 Discharge Plan Discharge Items Patient Disposition: Home - Home Health Services Reason For Visit: FALL,HYPERGLYCEMIA Discharge Diagnosis: Hyperglycemia, Rhabdomyolysis, UTI, Cellulitis Goals: You have been hospitalized for an acute medical problem. During your stay at [facility], we have made an effort to correct the problem that brought you to the hospital while keeping you as comfortable as possible. Medi cations were used to bring your condition under control and your discharge instructions will include directions for any medications you should take after leaving the hospital. Please make sure you see your Primary Care Provider as part of your follow up plan. Activity: As commented below Activity Comment: increase activity with therapy Non-emergency contact: Primary Care Provider Call non-emergency contact if: you have any medication questions, your symptoms worsen and your pain is not controlled Follow-up/Referrals: Jamie Mixon, DO [Outside Practitioners] - 11/20/20 10:00 am Diet: Carb Consistent or DM2 and Heart Healthy Addtl Attending Provider Instructions: You have been hospitalized for a fall and found to have muscle breakdown from being down for a while. You have been rehydrated with IV fluids and this has res olved. COVID testing was negative. Your sodium level was also low, and this was also corrected. Imaging did not show any evidence for fractures from your fall and CT of the head was unremarkable. A urine was checked and found to be infected. Given increased frequency, you have been treated with antibiotics and have another day of treatment for this but after discussion and review of cultures, you can take CEFTIN 250mg by mouth TWICE daily for the next 8 days to cover for both the UTI and cellulitis of your legs. Your diabetes was found to be significantly out of control, with A1c >16.9 and recommendations are to start insulin for this level. 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 You have been provided a glucometer to monitor your sugars once daily as discussed, and you should keep a log of these to bring to your PCP appointment. You are being started back on your Glipizide 10mg daily to help gain better control but should have this A1c level checked again as an outpatient to see if this has made any improvement. Conversation with [facility] [address] coordinator regarding want for a new PCP and arrangements have been made to accommodate this request but we were not able to get with Dr. Hood, but you have been set up with Dr Mixon. Please follow up with them regarding the progress for your cellulitis, UTI, and diabetes. Please follow up with all appointments as scheduled. A folate and B12 level were checked given your seizure medications and enlarged blood cell size on admission, and your folate was found to be low and have been started on supplementation which will continue at discharge. Please return to the emergency department with any worsening pain, fever, chest pain, shortness of breath, increased diarrhea, or for any other symptoms that are concerning for you. It has been a pleasure being a part of the medical team providing for you while you have been in the hospital. Take care! Pending Studies at Discharge: No Stand-Alone Forms: My [facility] Medications and DC Order Prescriptions: New folic acid 400 mcg Tablet 400 mcg PO QAM Qty: 30 RF: 0 glipizide [Glucotrol XL] 10 mg tablet extended release 24hr 10 mg PO DAILY Qty: 30 RF: 0 cefuroxime axetil 250 mg tablet 250 mg PO BID 8 Days Qty: 16 RF: 0 (DME) lancets [OneTouch Delica Lancets] 30 gauge misc See Rx Instructions .ROUTE .MEDSUPPLY Qty: 100 RF: 0 (DME) OneTouch Verio test strips Strip See Rx Instructions .ROUTE .MEDSUPPLY Qty: 25 RF: 0 Continued metformin [Glucophage] 500 mg tablet 500 mg PO QAM Qty: 90 RF: 3 (DME) Shower Chair Misc See Rx Instructions .ROUTE .MEDSUPPLY Qty: 1 RF: 0 zonisamide [Zonegran] 100 mg capsule 200 mg PO BID 90 Days Qty: 360 RF: 1 lamotrigine [Lamictal] 100 mg tablet 100 mg PO BID 90 Days Qty: 180 RF: 0 levothyroxine [Synthroid] 112 mcg tablet 112 mcg PO QAM Qty: 90 RF: 0 calcium carbonate-vitamin D3 600 mg(1,500mg) -200 unit tablet 1 tab PO QAM RF: 0 acetaminophen [Tylenol Extra Strength] 500 mg Tablet 500 mg PO QAM RF: 0 Discontinued hydrochlorothiazide 25 mg tablet 25 mg PO QAM Qty: 90 RF: 3 (DME) blood-glucose meter [OneTouch Verio Flex Start] kit See Dose Instructions .ROUTE .MEDSUPPLY Qty: 1 RF: 0 Discharge Orders: Discharge Order (Routine); Ordered 11/13/20 Ordered By: Rose Cabrera/Other Patient Handouts: ED Bladder Infection, Female (Adult) Admission Data Admit Date/Time: 11/10/20 16:52 Attending Provider: Vneancio Amanda Admit Provider: Gerald Gonsales Primary Care Provider: Hafsa Israel Other Providers: Gerald Gonsales ; [facility],Home [facility] Other Interventions: Discharge Summary Assessment (RN) Last Done: 11/13/20 14:07 Coding Level of Care Code D/C Day Management >30 mins Diagnoses Fall W19.XXXA Encounter type: initial encounter UTI (urinary tract infection) N39.0 Cellulitis L03.90 Hyperglycemia R73.9 Chronic kidney disease N18.9 Rhabdomyolysis M62.82
[2020-11-13] MEDS: DOXYCYCLINE HYCLATE 100 MG in DEXTROSE 5% 100 ML IV SCH ×2 (12:32)
[2020-11-13] MEDS: cefTRIAXone SODIUM 1,000 MG in DEXTROSE 5% 50 ML IV SCH (13:02)
== END 2020-11-13 18:05 | disposition home health service (06) | DRG 638 ==
LOC: ED 12:24 → 3N 16:52 → SUATTDRO 16:52 → 3N 19:00

== ENCOUNTER 2022-05-19 12:19 | Observation (INO) ==
[2022-05-19 13:56] LABS: Basophils # (auto) 0.03 K/uL (0-0.2); Basophils % (auto) 0.4 %; Eosinophils # (auto) 0.23 K/uL (0-0.50); Eosinophils % (auto) 3.2 %; Hematocrit (blood only) 35.8 % (34.1-44.9); Hemoglobin 11.8 g/dl (12.0-16.0); Immature Granulocytes # (auto) 0.02 K/uL (0.00-0.02); Immature Granulocytes % (auto) 0.3 %; Lymphocytes % (auto) 19.2 %; Mean Corpuscular Hemoglobin 30.8 pg (25.0-34.0); Mean Corpuscular Volume 93.5 fL (80.0-100.0); Mean Platelet Volume 9.2 fL (9.4-12.3); Monocytes # (auto) 0.54 K/uL (0.24-0.82); Monocytes % (auto) 7.4 %; Neutrophils # (auto) 5.07 K/uL (1.4-6.5); Neutrophils % (auto) 69.5 %; Platelet Count 237 K/uL (130-400); RDW Coefficient of Variation 13.6 % (11.5-14.5); RDW Standard Deviation 46.2 fL (36.4-46.3); Red Blood Count 3.83 M/uL (3.93-5.22); White Blood Count 7.29 K/ul (4.8-10.8)
--- NOTE | 2022-05-19 14:27 | CT Scan Report ---
CT pelvis wo con CLINICAL HISTORY: left hip pain for 3 days. No history of injury or fall. COMPARISON: None CT DOSE: TECHNIQUE: Standard CT of the pelvis and left hip is performed without IV contrast. Multiplanar recon struction is performed. A dose lowering technique was utilized adhering to the principles of ALARA. FINDINGS: Bones: The bones are osteopenic. There is no evidence for an acute fracture or dislocation. There are no lytic or blastic lesions. Joints: There is moderate to marked narrowing of the left hip joint space with marginal osteophyte fo rmation. The bones are in anatomic alignment. Lumbar spine: The lower lumbar spine was included on this study and demonstrates moderate to marked d egenerative change. Soft tissues: There is no focal soft tissue swelling. There are no focal fluid collections. IMPRESSION: 1. No acute osseous pathology. 2. Osteopenia and osteoarthritis. ACT 112: Negative or not required by law. Electronically signed by: Alfredo Zheng M.D. 05/19/2022 2:26 PM
[2022-05-19 14:35] LABS: Albumin Globulin Ratio 1.4 (0.9-2); Albumin Level 3.9 gm/dl (3.4-5.0); BUN Creatinine Ratio 9.4 (10-20); Bilirubin,Total 0.5 mg/dl (0.2-1.0); Calcium 8.7 mg/dl (8.5-10.1); Creatinine Clr Calc Pharmacy 23.3 ml/min; Est GFR (African American) 28.8 ml/min; Est GFR (Non-African American) 24.9 ml/min; Globulin 2.7 gm/dl (2.5-4.0); Potassium 4.6 mmol/L (3.5-5.1); Total Protein 6.6 gm/dl (6.0-8.3)
--- NOTE | 2022-05-19 14:36 | CT Scan Report ---
LUMBAR SPINE CT CT DOSE: 1553.71 mGy.cm HISTORY: lower back pain into left hip TECHNIQUE: Multiaxial CT images of the lumbar spine were performed and reformatted in the sagittal an d coronal plane without the use of contrast. A dose lowering technique was utilized adhering to the principles of ALARA. COMPARISON: Lumbar spine CT 10/27/2006. FINDINGS: Straightening of the lumbar spine. There is 4 mm of retrolisthesis of L3 on L4. Multiple mi og-jb-kriitfny compression deformities seen throughout the lumbar spine. These are detected age indet erminate. The majority these appear to be chronic fractures. Sclerosis along the inferior endplate fr acture at L2 likely represents a subacute/healing compression fracture. There are acute to subacute b ilateral L3 pedicle fractures. These are nondisplaced. The mid to lower lumbar spine facets are fused . There is fzdr-jn-ebbnhgfg disc space narrowing throughout the lumbar spine. The T12-L1 vertebral christiano dies are fused. The L4-L5 and L5-S1 vertebral bodies are partially fused. There is an old, healed sac ral fracture identified. Severe central canal narrowing at L4-5 due to broad-based posterior disc bul ge and ligamentum flavum and facet hypertrophy. There is moderate central canal narrowing at L3-L4 an d L5-S1. Mild central canal narrowing at L2-L3. Colonic diverticulosis. Moderate to severe bilateral neural foraminal narrowing within the lumbar spine. IMPRESSION: 1. Acute to subacute nondisplaced bilateral L3 pedicle fractures. This is consistent with an unstable fracture. 2. A subacute/healing inferior endplate compression fracture at L2. 3. Multiple additional old, healed compression fractures throughout the lumbar spine. 4. Multilevel degenerative changes as described above most pronounced at the L4-5 level which demonst rates severe central canal narrowing. ACT 112: Negative or not required by law. Electronically signed by: Golden Harris M.D. 05/19/2022 2:35 PM
[2022-05-19] MEDS ORDERED: NovoLIN-R INSULIN PER UNIT CHARGE SC STA (14:42)
--- NOTE | 2022-05-19 14:45 | Emergency Department Note ---
ED Visit Note I agree with the diagnosis and management decisions and have been personally involved in the case. Patient's CT imaging of the lumbar spine reveals an unstable fracture of L3 with bilateral pedicle fractures. Glucose is noted to be markedly elevated. Units of regular insulin SQ was ordered in addition to IV normal saline solution. Patient's case will be discussed with orthopedic spine and internal medicine hospitalist service. Please see Merline Viveros PA-C's notes for further details of the history, physical and visit. .
--- NOTE | 2022-05-19 14:53 | Emergency Department Note ---
Impression & Plan Closed fracture of pedicle of lumbar vertebra, Hyperglycemia, Lumbar disc disease with radiculopathy ED Provider Note CHIEF COMPLAINT: Left hip pain HISTORY OF PRESENT ILLNESS: Radha Magdaleno is a 77 year old female with history of CVA, CKD III, DM2, HTN, DLD, epilepsy, GERD, hypothyroidism, OA, ankylosing spondylitis among multiple others listed below who presents to the Emergency Department for evaluation of worsening pain to her left lateral hip radiating down her leg with associated numbness/tingling which has been worsening over the past 3 days. She also notes pain to her bilateral lower back which she describes as "sore". Currently, she rates her discomfort as a 1/10 which worsens with attempts of movement and especially when standing up. She states that she can only stand for a few minutes before she has to sit down again due to her pain. The patient states that she did suffer a fall off of her scooter back in March, however, she has not had any additional falls or trauma since then. She otherwise denies having pain radiating into her upper back, neck or down her arms. She also denies pain radiating down into her right leg, specific weakness, saddle paresthesias or loss of continence of her bowels or bladder. No recent fevers/chills, respiratory difficulties, chest pain, palpitations, abdominal pain, nausea or vomiting. The patient does note that she has chronic redness and swelling to her bilateral lower extremities. I did speak with the patient's daughter, Darling, over the phone. She states that her mother has not felt safe at home as she has been afraid of falling. She is also concerned that she has not been taking care of herself very well as she does not check her blood sugars or eat correctly. She is concerned because she lives alone and does note have 24 hour care available. The patient is not reportedly on any anticoagulants/antiplatelets. REVIEW OF SYSTEMS: 10 systems were reviewed and were negative unless otherwise stated in HPI as above PHYSICAL EXAM: VITALS: Vitals are noted on the nurse's note and reviewed by myself. Hypertensive, additional vital signs stable General: Resting in bed, no acute distress HEENT: Normocephalic, atraumatic, PERRL, EOMI, mucous membranes moist, oropharynx clear Neck: No mid-line or paraspinal cervical tenderness, ROM intact without pain Resp: Good inspiratory effort on room air, lung sounds clear bilaterally, chest wall non-tender CV: Regular rate and rhythm, normal S1-S2, peripheral pulses palpated Back: Tender to palpation over the midline lumbar spine and bilateral paraspinal musculature, no obvious step-offs or deformities Abd: Soft, non-distended, non-tender MSK: No outward signs of trauma. Tender to palpation along the left hip and lateral thigh. ROM of the LLE limited secondary to pain, especially with hip flexion. No tenderness to palpation of the BUE or RLE, sensation intact and ROM intact throughout these extremities with strength 5/5 throughout Integumentary: Erythema, edema and warmth to the bilateral lower extremities with mild tenderness to palpation, otherwise no other skin changes or appreciable rash Neuro: Awake, alert and oriented x 3, interacting and answering questions appropriately Differential diagnosis includes musculoskeletal, disc herniation, fracture, cord compression, discitis, sciatica, cauda equina, infection, as well as other pathologies. EMERGENCY DEPARTMENT COURSE: Physical exam and history were performed. Nursing triage notes, EMR, and m edication list were personally reviewed. Patient was noted to be hypertensive. Initial vital signs stable. Patient is a 77 year old female with history of CVA, CKD III, DM2, HTN, DLD, epilepsy, GERD, hypothyroidism, OA, ankylosing spondylitis among multiple others listed below who presents to the Emergency Department for evaluation of worsening pain to her left lateral hip radiating down her leg with associated numbness/tingling which has been worsening over the past 3 days. Additional history as described above. See physical exam as noted above. The patient was offered pain medication at this time but declined. IV access was established. Labs were obtained and reviewed by myself as below. Of note, no concern for leukocytosis with a WBC of 7.29. Mild anemia with hemoglobin 11.8. Mild hyponatremia with a sodium of 134, electrolytes otherwise WNL. Creatinine elevated at 1.92 consistent with history of CKD 3. LFTs nondiagnostic. Glucose was elevated at 356. She was given 10 units Novolin and 1 L NSS. Urinalysis was obtained via Guidry catheter and did show 1+ protein, 2+ glucose, positive nitrates, trace leukocyte esterase, 1030 WBCs, 4+ bacteria. Possible contamination with >30 epithelial cells. CAT scans of the lumbar spine and pelvis were obtained and reviewed by radiologist myself as below. Imaging did show acute to subacute nondisplaced bilateral L3 pedicle fractures consistent with possible unstable fracture. There is also a subacute/healing inferior endplate compression fracture at L2. Multiple additional old, healed compression fractures throughout the lumbar spine. Multilevel degenerative changes most pronounced at L4-5 which demonstrates severe central canal narrowing. I did discuss results of the above findings with the patient as well as her daughter over the telephone. I then contacted Dr. Vazquez of orthopedic spine. He recommended admitting the patient to the hospital with medicine and would be available for consultation with medicine. He also recommended obtaining an MRI of her lumbar spine for further evaluation. I then contacted the [facility]. They agreed to evaluate the patient. The patient and her daughter verbalized their understanding and agreement with the treatment plan as above. The chart was completed utilizing apprupt Speech Voice Recognition Software. Grammatical errors, random word insertions, pronoun errors, and incomplete sentences are an occasional consequence of this system due to software limitations, ambient noise, and hardware issues. Any formal questions or concerns about the content, text, or information contained within the body of this dictation should be directly addressed to the provider for clarification. 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 GERD (gastroesophageal reflux disease) Hypotension Hypothyroidism Intertrochanteric fracture of right hip (07/18/14) Migraine Osteoarthritis Osteoarthritis of shoulder Osteoporosis, senile PAD (peripheral artery disease) Rhabdomyolysis Screening for skin condition Stasis dermatitis Venous stasis ulcer of right lower extremity Vertebral fracture, osteoporotic Surgical History H/O total knee replacement History of bilateral knee replacement History of left-sided carotid endarterectomy S/P cholecystectomy S/P rotator cuff repair Family History Mother Transitional cell carcinoma of bladder Diabetes Cardiac disorder Hypertension Ovarian cancer Grandmother Cancer Uncle Cancer Father Cardiac disorder Hypertension Asthma Social History Smoking Status: Never smoker Hx Alcohol Use: No Hx Substance Use: No Preferred Language: Greenlandic Communication Ability: Effective Charger Required: No Beliefs That Will Affect Care: None marital status: Current Living Situation: Alone 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 How many Children do You have: 2 Other Information That Helps Us Care for You: No Feels Safe at Home: Yes Safety Concerns: Feels Safe At This Time Assistive Devices: Walker Allergies Allergies Allergy/AdvReac Type Severity Reaction Status Date / Time omeprazole Allergy Severe throat Verified 05/19/22 15:39 swelling alendronate sodium Allergy Unknown GI SYMPTOMS Verified 05/19/22 15:39 oxytocin Allergy Unknown Nausea and Verified 05/19/22 15:39 vomiting pioglitazone Allergy Unknown Edema BLE Verified 05/19/22 15:39 prednisone Allergy Unknown Nausea and Verified 05/19/22 15:39 vomiting risedronate sodium Allergy Unknown Headache Verified 05/19/22 15:39 and weakness sitagliptin Allergy Unknown Itching Verified 05/19/22 15:39 valproic acid Allergy Unknown Affected Verified 05/19/22 15:39 her memory divalproex sodium Allergy Verified 05/19/22 15:39 [From Depakote] fluoxetine [From Prozac] Allergy Unknown Verified 05/19/22 15:39 codeine AdvReac Unknown NAUSEA/VOMI Verified 05/19/22 15:39 TING morphine AdvReac Unknown nausea/vomi Verified 05/19/22 15:39 ting oxycodone AdvReac Unknown nausea/vomi Verified 05/19/22 15:39 ting Home Meds Home Medications Medication Instructions Recorded Confirmed acetaminophen 650 mg 650 mg PO Q8H PRN Pain 05/19/22 05/19/22 tablet,extended release (Tylenol 8 Hour) ascorbic acid (vitamin C) 1,000 mg 0 mg PO QAM 05/19/22 05/19/22 tablet (Vitamin C) cyanocobalamin (vitamin B-12) 500 0 mcg PO QAM 05/19/22 05/19/22 mcg tablet glipizide 10 mg tablet, extended 10 mg PO QAM 05/19/22 05/19/22 release 24 hr (Glucotrol XL) metformin 500 mg tablet,extended 500 mg PO QAM 05/19/22 05/19/22 release 24hr tramadol 50 mg tablet 1 tab PO BID PRN Pain 05/19/22 05/19/22 vit C 250 mg-vit E 90 mg-zinc 40 1 tab PO BID 05/19/22 05/19/22 mg-copper 1 [id number] capsule (PreserVision AREDS-2) Previous Rx's Medication Instructions Recorded Shower Chair #1 ea 06/03/20 blood sugar diagnostic (OneTouch #100 ea 11/15/20 Verio test strips) lancets 30 gauge (OneTouch Delica #100 ea 11/15/20 Lancets) Lamictal 100 mg tablet 100 mg PO BID 90 days #180 tabs 05/12/21 (lamotrigine) Zonegran 100 mg capsule 200 mg PO BID 90 days #360 caps 12/09/21 (zonisamide) Results & Data (ED) Vital Signs Vital Signs - 24 hr 05/19/22 12:24 05/19/22 15:27 Temperature 37.1 C Temperature Source Oral Pulse Rate 84 Pulse Rate [Right Finger] 82 Respiratory Rate 18 16 Respiratory Effort / Characteristics Non-Labored Spontaneous Non-Labored Respiratory Depth Normal Normal Blood Pressure 159/82 H Blood Pressure [Right Arm] 164/95 H Blood Pressure Mean 107 Blood Pressure Mean [Right Arm] 118 Blood Pressure Position Lying Blood Pressure Position [Right Arm] Lying Pulse Oximetry 95 97 Oxygen Delivery Method Room Air Room Air Sepsis Recent Fever Within 48 Hours No Sepsis New/Unexplained Change in Mental Status No Sepsis Action Taken by Nursing No Action Required Laboratory Data Result diagrams: 05/19/22 13:42 05/19/22 13:42 Lab Results 05/19/22 05/19/22 05/19/22 Range/Units 13:42 13:42 13:42 WBC 7.29 (4.8-10.8) K/ul RBC 3.83 L (3.93-5.22) M/uL Hgb 11.8 L (12.0-16.0) g/dl Hct 35.8 (34.1-44.9) % MCV 93.5 (80.0-100.0) fL MCH 30.8 (25.0-34.0) pg MCHC 33.0 (32.0-36.0) g/dL RDW Std Deviation 46.2 (36.4-46.3) fL RDW Coeff of Tony 13.6 (11.5-14.5) % Plt Count 237 (130-400) K/uL MPV 9.2 L (9.4-12.3) fL Immature Gran % (Auto) 0.3 % Neut % (Auto) 69.5 % Lymph % (Auto) 19.2 % [place] % (Auto) 7.4 % Eos % (Auto) 3.2 % Baso % (Auto) 0.4 % Neut # (Auto) 5.07 (1.4-6.5) K/uL Lymph # (Auto) 1.40 (1.2-3.4) K/uL [place] # (Auto) 0.54 (0.24-0.82) K/uL Eos # (Auto) 0.23 (0-0.50) K/uL Baso # (Auto) 0.03 (0-0.2) K/uL Immature Gran # (Auto) 0.02 (0.00-0.02) K/uL Sodium 134 L (136-145) mmol/L Potassium 4.6 (3.5-5.1) mmol/L Chloride 101 (98-107) mmol/L Carbon Dioxide 27 (21-32) mmol/L Anion Gap 6 (3-11) BUN 18 (6-23) mg/dl Creatinine 1.92 H (0.6-1.2) mg/dl Est Cr Clr Drug Dosing 23.3 ml/min Est GFR ( Amer) 28.8 ml/min Est GFR (Non-Af Amer) 24.9 ml/min BUN/Creatinine Ratio 9.4 L (10-20) Glucose 356 H* (70-99(Fasting)) mg/dl Calcium 8.7 (8.5-10.1) mg/dl Total Bilirubin 0.5 (0.2-1.0) mg/dl AST 16 (13-39) U/L ALT 5 L (7-52) U/L Alkaline Phosphatase 248 H (34-104) U/L Total Protein 6.6 (6.0-8.3) gm/dl Albumin 3.9 (3.4-5.0) gm/dl Globulin 2.7 (2.5-4.0) gm/dl Albumin/Globulin Ratio 1.4 (0.9-2) Urine Color Urine Appearance (Clear) Urine pH (4.5-7.5) Ur Specific [place] (1.000-1.030) Urine Protein (Negative) Urine Glucose (UA) (Negative) Urine Ketones (Negative) Urine Blood (Negative) Urine Nitrite (Negative) Urine Bilirubin (Negative) Urine Urobilinogen (Negative) Ur Leukocyte Esterase (Negative) Urine WBC (Auto) (0-5) /hpf Urine RBC (Auto) (0-4) /hpf U Hyaline Cast (Auto) (0-5) /lpf U Epithel Cells (Auto) (0-5) /lpf Urine Bacteria (Auto) (Negative) SARS-CoV-2, RNA, NAAT NEGATIVE (NEGATIVE) 05/19/22 Range/Units 15:17 WBC (4.8-10.8) K/ul RBC (3.93-5.22) M/uL Hgb (12.0-16.0) g/dl Hct (34.1-44.9) % MCV (80.0-100.0) fL MCH (25.0-34.0) pg MCHC (32.0-36.0) g/dL RDW Std Deviation (36.4-46.3) fL RDW Coeff of Tony (11.5-14.5) % Plt Count (130-400) K/uL MPV (9.4-12.3) fL Immature Gran % (Auto) % Neut % (Auto) % Lymph % (Auto) % [place] % (Auto) % Eos % (Auto) % Baso % (Auto) % Neut # (Auto) (1.4-6.5) K/uL Lymph # (Auto) (1.2-3.4) K/uL [place] # (Auto) (0.24-0.82) K/uL Eos # (Auto) (0-0.50) K/uL Baso # (Auto) (0-0.2) K/uL Immature Gran # (Auto) (0.00-0.02) K/uL Sodium (136-145) mmol/L Potassium (3.5-5.1) mmol/L Chloride (98-107) mmol/L Carbon Dioxide (21-32) mmol/L Anion Gap (3-11) BUN (6-23) mg/dl Creatinine (0.6-1.2) mg/dl Est Cr Clr Drug Dosing ml/min Est GFR ( Amer) ml/min Est GFR (Non-Af Amer) ml/min BUN/Creatinine Ratio (10-20) Glucose (70-99(Fasting)) mg/dl Calcium (8.5-10.1) mg/dl Total Bilirubin (0.2-1.0) mg/dl AST (13-39) U/L ALT (7-52) U/L Alkaline Phosphatase (34-104) U/L Total Protein (6.0-8.3) gm/dl Albumin (3.4-5.0) gm/dl Globulin (2.5-4.0) gm/dl Albumin/Globulin Ratio (0.9-2) Urine Color Yellow Urine Appearance Clear (Clear) Urine pH 6.5 (4.5-7.5) Ur Specific [place] 1.012 (1.000-1.030) Urine Protein 1+ H (Negative) Urine Glucose (UA) 2+ H (Negative) Urine Ketones Negative (Negative) Urine Blood Negative (Negative) Urine Nitrite Positive A (Negative) Urine Bilirubin Negative (Negative) Urine Urobilinogen Negative (Negative) Ur Leukocyte Esterase Trace H (Negative) Urine WBC (Auto) 10-30 H (0-5) /hpf Urine RBC (Auto) 0-4 (0-4) /hpf U Hyaline Cast (Auto) 0 (0-5) /lpf U Epithel Cells (Auto) >30 H (0-5) /lpf Urine Bacteria (Auto) 4+ H (Negative) SARS-CoV-2, RNA, NAAT (NEGATIVE) Administered Medications Sodium Chloride (Nss 1000ml) 1,000 mls @ 100 mls/hr IV .Q10H GLORIA Stop: 06/18/22 14:44 Last Admin: 05/19/22 15:13 Dose: 100 mls/hr Documented By: NMS Discontinued Medications Insulin Human Regular (Novolin-R Insulin Per Unit Charge) 10 units SC NOW STA Stop: 05/19/22 14:43 Last Admin: 05/19/22 15:12 Dose: 10 units Documented By: RYAN Co-signed By: ADAM Lorazepam (Lorazepam 0.5 Mg Tab) 0.5 mg PO NOW STA Stop: 05/19/22 16:41 Last Admin: 05/19/22 17:04 Dose: 0.5 mg Documented By: RYAN Imaging Data Radiologist's Impression: Lumbar Spine CT 05/19/22 13:[address] DOSE: 1553.71 mGy.cm HISTORY: lower back pain into left hip TECHNIQUE: Multiaxial CT images of the lumbar spine were performed and reformatted in the sagittal and coronal plane without the use of contrast. A dose lowering technique was utilized adhering to the principles of ALARA. COMPARISON: Lumbar spine CT 10/27/2006. FINDINGS: Straightening of the lumbar spine. There is 4 mm of retrolisthesis of L3 on L4. Multiple [id number] compression deformities seen throughout the lumbar spine. These are detected age indeterminate. The majority these appear to be chronic fractures. Sclerosis along the inferior endplate fracture at L2 likely represents a subacute/healing compression fracture. There are acute to subacute bilateral L3 pedicle fractures. These are nondisplaced. The mid to lower lumbar spine facets are fused. There is [id number] disc space narrowing throughout the lumbar spine. The T12-L1 vertebral bodies are fused. The L4-L5 and L5-S1 vertebral bodies are partially fused. There is an old, healed sacral fracture identified. Severe central canal narrowing at L4-5 due to broad-based posterior disc bulge and ligamentum flavum and facet hypertrophy. There is moderate central canal narrowing at L3-L4 and L5-S1. Mild central canal narrowing at L2-L3. Colonic diverticulosis. Moderate to severe bilateral neural foraminal narrowing within the lumbar spine. IMPRESSION: 1. Acute to subacute nondisplaced bilateral L3 pedicle fractures. This is consistent with an unstable fracture. 2. A subacute/healing inferior endplate compression fracture at L2. 3. Multiple additional old, healed compression fractures throughout the lumbar spine. 4. Multilevel degenerative changes as described above most pronounced at the L4- 5 level which demonstrates severe central canal narrowing. ACT 112: Negative or not required by law. Electronically signed by: Golden Harris M.D. 05/19/2022 2:[address] 05/19/22 13:36 CT pelvis wo con CLINICAL HISTORY: left hip pain for 3 days. No history of injury or fall. COMPARISON: None CT DOSE: TECHNIQUE: Standard CT of the pelvis and left hip is performed without IV contrast. Multiplanar reconstruction is performed. A dose lowering technique was utilized adhering to the principles of ALARA. FINDINGS: Bones: The bones are osteopenic. There is no evidence for an acute fracture or dislocation. There are no lytic or blastic lesions. Joints: There is moderate to marked narrowing of the left hip joint space with marginal osteophyte formation. The bones are in anatomic alignment. Lumbar spine: The lower lumbar spine was included on this study and demonstrates moderate to marked degenerative change. Soft tissues: There is no focal soft tissue swelling. There are no focal fluid collections. IMPRESSION: 1. No acute osseous pathology. 2. Osteopenia and osteoarthritis. ACT 112: Negative or not required by law. Electronically signed by: Alfredo Zheng M.D. 05/19/2022 2:26 PM Discharge Plan Visit Data Chief Complaint: Hip Pain ED Provider: Yovana Power ED Midlevel Provider: Merline Viveros Discharge Problem: Closed fracture of pedicle of lumbar vertebra, Hyperglycemia, Lumbar disc disease with radiculopathy Patient Disposition: Admitted As Inpatient Discharge Instructions Interventions: ED Discharge Assessment Last Done: 05/19/22 17:10
[2022-05-19] MEDS: SODIUM CHLORIDE 0.9% 1000ML 1,000 ML IV SCH (15:13)
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
[2022-05-19] MEDS ORDERED: PHARMACY GLYCEMIC MGMT CONSULT PRN (15:49)
[2022-05-19 15:51] LABS: Appearance Urine Clear (Clear); Bacteria Urine Automated 4+ (Negative); Bilirubin Urine Negative (Negative); Blood Urine Negative (Negative); Cast Urine Automated 0 /lpf (0-5); Color Urine Yellow; Epithelial Cell Urine Auto >30 /lpf (0-5); Glucose Urine UA 2+ (Negative); Ketones Urine Negative (Negative); Leukocyte Esterase Urine Trace (Negative); Nitrite Urine Positive (Negative); Protein Urine 1+ (Negative); RBC Urine Automated 0-4 /hpf (0-4); Specific Gravity Urine 1.012 (1.000-1.030); Urobilinogen Urine Negative (Negative); pH Urine 6.5 (4.5-7.5)
[2022-05-19] MEDS ORDERED: LORazepam 0.5 MG TAB PO STA (16:40)
[2022-05-19] MEDS ORDERED: DEXTROSE 50% 50 ML SYRINGE IV PRN (17:37)
[2022-05-19] MEDS ORDERED: GLUCAGON FOR INJ 1 MG VIAL SQ PRN (17:37)
[2022-05-19] MEDS ORDERED: CARBOHYDRATES FOR HYPOGLYCEMIA PO PRN (17:37)
[2022-05-19] MEDS ORDERED: GLUCOSE 10 TAB/TUBE PO PRN (17:37)
[2022-05-19] MEDS ORDERED: GLUCOSE 40% GEL 15 GM TUBE PO PRN (17:37)
[2022-05-19] MEDS: traMADol HCL 50 MG TABLET PO PRN (18:25)
[2022-05-19] MEDS: cefTRIAXone SODIUM 1,000 MG in DEXTROSE 5% 50 ML IV SCH (19:03)
[2022-05-19] MEDS: INSULIN ASPART PER UNIT SC SCH ×2 (19:07→20:49)
--- NOTE | 2022-05-19 19:19 | XRay Report ---
XR chest 1V portable HISTORY: Back pain. pre-op COMPARISON: Chest 03/20/2022. FINDINGS: No pneumothorax. No pleural effusions. Advanced degenerative changes and old posttraumatic changes again noted within the shoulders. This remains unchanged. The heart is mildly enlarged. A few linear densities at the left mid to lower lung zone have improved and favor subsegmental atelectasis or scarring. There are old, healed left-sided rib fractures. The right lung is clear. No evidence fo r pulmonary edema. IMPRESSION: 1. Improvement in the left basilar densities suggesting resolving subsegmental atelectasis or scarrin g. 2. Stable mild cardiomegaly. 3. Old posttraumatic and degenerative changes noted within the shoulders. ACT 112: Negative or not required by law. Electronically signed by: Golden Harris M.D. 05/19/2022 7:17 PM
[2022-05-19] MEDS: lamoTRIgine 100 MG TAB PO SCH (20:49)
[2022-05-19] MEDS ORDERED: NON-FORMULARY MEDICATION (Vit C,E-Zn-Coppr-Lutein-Zeaxan [Preservision Areds-2] 250-90-40- PO SCH (21:00)
--- NOTE | 2022-05-19 21:35 | Magnetic Resonance Report ---
LUMBAR SPINE MRI HISTORY: Low back pain. unstable L spine fracture, central canal stenosis TECHNIQUE: Multiplanar multisequence MRI of the lumbar spine was performed without the use of contras t. COMPARISON: Lumbar spine CT 05/19/2022. FINDINGS: For the purpose of the report the L5-S1 disc space will be located on axial image 25 of 27. Straightening of the lumbar spine. There is 4 mm of anterolisthesis of L3 on L4 and 3 mm of retrolist hesis of L4 on L5. There is a 1 cm vertebral body hemangioma at L1. Multiple old mild to moderate com pression deformities seen throughout the lumbar spine. This includes an old inferior endplate francis reynaldo deformity at L2. Mild edema surrounding the bilateral L3 pedicle fractures consistent with the s ubacute nondisplaced fractures. There is also mild soft tissue edema at this location. The visualized sacrum is intact. Mild disc space narrowing at L2-L3 and L3-L4. Moderate disc space narrowing at L4- L5 and L5-S1. The T12-L1 vertebral bodies are partially fused. The L4-S1 facets also appear fused. Th e conus terminates at the T12-L1 disc space level. No evidence for an epidural hematoma. Mild atrophy of the right psoas muscle which is likely chronic. Severe facet degenerative changes at L3-L4. Verte bral body hemangioma at L5. L1-L2: No significant central canal narrowing. There is mild bilateral neural foraminal narrowing. L2-L3: There is a broad-based posterior disc bulge asymmetric to the left with significant ligamentum and facet hypertrophy. This results in moderate to severe central canal and bilateral neural foramin al narrowing. The central canal demonstrates an AP diameter of 6 mm. L3-L4: There is a broad-based posterior disc bulge with severe ligamentum and facet hypertrophy. Ther e is also prominence of the epidural fat at this location and mild anterolisthesis. This results in s evere central canal narrowing with the AP diameter measuring 4.3 mm. There is also severe bilateral n eural foraminal narrowing. L4-L5: Broad-based posterior disc bulge with mild anterolisthesis. In conjunction with the ligamentum and facet hypertrophy this results in severe central canal and moderate bilateral neural foraminal n arrowing. The AP diameter of the central canal is approximately 5.3 mm. L5-S1: Broad-based posterior disc bulge with bilateral facet hypertrophy resulting in mild central ca nal and moderate to severe bilateral neural foraminal narrowing. IMPRESSION: 1. Nondisplaced subacute bilateral L3 pedicle fractures are again noted. 2. No additional acute fractures identified within the lumbar spine. 3. Multiple old compression deformities again noted throughout the lumbar spine. 4. Multilevel lumbar spondylosis as described above most pronounced at the L3-L4 and L4-5 levels whic h demonstrates severe central canal narrowing. ACT 112: Negative or not required by law. Electronically signed by: Golden Harris M.D. 05/19/2022 9:33 PM
[2022-05-19] MEDS ORDERED: LANTUS PER UNIT CHARGE SQ ONE (21:45)
[2022-05-20] MEDS: SODIUM CHLORIDE 0.9% 1000ML 1,000 ML IV SCH ×2 (00:26→09:30)
[2022-05-20] MEDS: INSULIN ASPART PER UNIT SC SCH ×5 (00:26→20:47)
[2022-05-20] MEDS: traMADol HCL 50 MG TABLET PO PRN (01:38)
[2022-05-20] MEDS: ASCORBIC ACID 500 MG TAB PO SCH (07:45)
[2022-05-20] MEDS: lamoTRIgine 100 MG TAB PO SCH ×2 (07:45→19:39)
[2022-05-20] MEDS: CYANOCOBALAMIN (B-12) 500 MCG TABLET PO SCH (07:46)
[2022-05-20] MEDS: ZONISAMIDE 100 MG CAPSULE PO SCH ×2 (08:03→19:39)
[2022-05-20 08:25] LABS: Hematocrit (blood only) 35.7 % (34.1-44.9); Hemoglobin 11.5 g/dl (12.0-16.0); Mean Corpuscular Hemoglobin 31.1 pg (25.0-34.0); Mean Corpuscular Hgb Conc 32.2 g/dL (32.0-36.0); Mean Corpuscular Volume 96.5 fL (80.0-100.0); Mean Platelet Volume 9.1 fL (9.4-12.3); Platelet Count 223 K/uL (130-400); RDW Coefficient of Variation 13.6 % (11.5-14.5); RDW Standard Deviation 48.5 fL (36.4-46.3); White Blood Count 7.58 K/ul (4.8-10.8)
[2022-05-20 09:06] LABS: BUN Creatinine Ratio 9.1 (10-20); Calcium 8.2 mg/dl (8.5-10.1); Est GFR (African American) 32.2 ml/min; Est GFR (Non-African American) 27.8 ml/min; Potassium 4.5 mmol/L (3.5-5.1)
[2022-05-20 09:27] LABS: Estimated Average Glucose 258 mg/dl; Hemoglobin A1C 10.6 % (4.5-5.6)
[2022-05-20] MEDS ORDERED: Nursing to Pharmacy Communication SCH (09:45)
--- NOTE | 2022-05-20 11:55 | Orthopedic Consultation ---
Date of Consultation May 20, 2022 Assessment & Plan (1) Closed fracture of pedicle of lumbar vertebra: Assessment L3 pedicle fractures. Plan at this time both the CAT scan and MRI demonstrate most likely a subacute L3 pedicle fractures. This is most likely due to the autofusion from L4 to the sacrum creating adjacent level stresses. She does exhibit severe multilevel spinal stenosis but does not exhibit gross neurogenic claudicatory symptoms. At this time in light of her health history I am very hesitant to recommend any surgical intervention. We will provide her with an LSO brace to wear when out of bed. We can continue to follow this with serial CAT scans over the course of the next several months. History of Present Illness Reason for Consultation: Back pain with L3 pedicle fractures Attending Physician: Sergio Xavier MD History of Present Illness This is a 77-year-old female that has a history of some recent back pain and multiple falls at home. She has extensive medical history. This morning she does describe intermittent back pain she denies any numbness tingling to lower extremities. She states she usually uses a walker at home and tolerates this well. Allergies Allergy/AdvReac Type Severity Reaction Status Date / Time omeprazole Allergy Severe throat Verified 05/19/22 15:39 swelling alendronate sodium Allergy Unknown GI SYMPTOMS Verified 05/19/22 15:39 oxytocin Allergy Unknown Nausea and Verified 05/19/22 15:39 vomiting pioglitazone Allergy Unknown Edema BLE Verified 05/19/22 15:39 prednisone Allergy Unknown Nausea and Verified 05/19/22 15:39 vomiting risedronate sodium Allergy Unknown Headache Verified 05/19/22 15:39 and weakness sitagliptin Allergy Unknown Itching Verified 05/19/22 15:39 valproic acid Allergy Unknown Affected Verified 05/19/22 15:39 her memory divalproex sodium Allergy Verified 05/19/22 15:39 [From Depakote] fluoxetine [From Prozac] Allergy Unknown Verified 05/19/22 15:39 codeine AdvReac Unknown NAUSEA/VOMI Verified 05/19/22 15:39 TING morphine AdvReac Unknown nausea/vomi Verified 05/19/22 15:39 ting oxycodone AdvReac Unknown nausea/vomi Verified 05/19/22 15:39 ting Home Medications Medication Instructions Recorded Confirmed Type Shower Chair #1 ea 06/03/20 05/19/22 Rx blood sugar diagnostic (OneTouch #100 ea 11/15/20 05/19/22 Rx Verio test strips) lancets 30 gauge (OneTouch Delica #100 ea 11/15/20 05/19/22 Rx Lancets) Lamictal 100 mg tablet 100 mg PO BID 90 days #180 tabs 05/12/21 05/19/22 Rx (lamotrigine) Zonegran 100 mg capsule 200 mg PO BID 90 days #360 caps 12/09/21 05/19/22 Rx (zonisamide) acetaminophen 650 mg 650 mg PO Q8H PRN Pain 05/19/22 05/19/22 History tablet,extended release (Tylenol 8 Hour) ascorbic acid (vitamin C) 1,000 mg 0 mg PO QAM 05/19/22 05/19/22 History tablet (Vitamin C) cyanocobalamin (vitamin B-12) 500 0 mcg PO QAM 05/19/22 05/19/22 History mcg tablet glipizide 10 mg tablet, extended 10 mg PO QAM 05/19/22 05/19/22 History release 24 hr (Glucotrol XL) metformin 500 mg tablet,extended 500 mg PO QAM 05/19/22 05/19/22 History release 24hr tramadol 50 mg tablet 1 tab PO BID PRN Pain 05/19/22 05/19/22 History vit C 250 mg-vit E 90 mg-zinc 40 1 tab PO BID 05/19/22 05/19/22 History mg-copper 1 [id number]-phmewg-hvuneq capsule (PreserVision AREDS-2) Patient History Medical History Ankylosing spondylitis Asymptomatic hyperuricemia Bilateral edema of lower extremity Carotid stenosis Cellulitis Cerebrovascular disease, arteriosclerotic, post-stroke Chronic lower back pain Chronic reflux esophagitis CKD (chronic kidney disease), stage III DM type 2 (diabetes mellitus, type 2) Dyslipidemia Elevated blood pressure reading in office without diagnosis of hypertension Epilepsy 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 GERD (gastroesophageal reflux disease) Hypotension Hypothyroidism Intertrochanteric fracture of right hip (07/18/14) Migraine Osteoarthritis Osteoarthritis of shoulder Osteoporosis, senile PAD (peripheral artery disease) Rhabdomyolysis Screening for skin condition Stasis dermatitis Venous stasis ulcer of right lower extremity Vertebral fracture, osteoporotic Surgical History H/O total knee replacement History of bilateral knee replacement History of left-sided carotid endarterectomy S/P cholecystectomy S/P rotator cuff repair Family History Mother Transitional cell carcinoma of bladder Diabetes Cardiac disorder Hypertension Ovarian cancer Grandmother Cancer Uncle Cancer Father Cardiac disorder Hypertension Asthma Social History Smoking Status: Never smoker Hx Alcohol Use: No Hx Substance Use: No Preferred Language: Japanese Communication Ability: Effective Width Stripper Required: No Beliefs That Will Affect Care: None marital status: / Current Living Situation: Alone 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 She is good strength testing lower extremities. Sensory is symmetric and intact. Results & Data ([facility]) Vital Signs (Past 12 Hours) Vital Signs Temp Pulse Resp BP Pulse Ox O2 Del Method 05/20/22 07:02 36.5 C 73 18 154/76 H 96 Room Air
[2022-05-20] MEDS ORDERED: LANTUS PER UNIT CHARGE SQ ONE ×2 (12:30→21:00)
--- NOTE | 2022-05-20 14:21 | Pharmacy Report ---
Pharmacy Glycemic Short Note 2 - Date of Service May 20, 2022 - Glycemic Short BSG Results (Last 24 hours): 05/19/22 05/19/22 05/19/22 13:42 16:11 16:14 Glucose 356 H* POC Glucose 330 H* 285 H 05/19/22 05/19/22 05/20/22 18:29 20:45 00:19 Glucose POC Glucose 187 H 97 152 H 05/20/22 05/20/22 05/20/22 06:02 07:36 12:13 Glucose 141 H POC Glucose 133 H 228 H OUTPATIENT ANTIDIABETIC REGIMEN: * Glipizide XL 10 mg qAM, metformin 500 mg qAM * A1c 10.6% 05/20/22 ASSESSMENT: * Patient admitted with vertebral fracture, BSG elevated on admission, trended down with initiation of of novolog/lantus last PM * A1c 10.6%, holding home oral medications at this time; may be candidate to start insulin on outpatient, patient educator consulted * Patient ordered diet this AM, will monitor for need to tighten carb ratio. PLAN FOR INPATIENT GLYCEMIC CONTROL: * Hold outpatient oral diabetes medications * Basal insulin * Lantus 10 units SQ x1, scale for PM up to 10 units * Bolus insulin * NovoLog per scale ACHS or Q6hrs while NPO * Goal Range: Low 120 mg/dL - High 150 mg/dL * Correction Factor: 20 mg/dL/unit * Nutritional / Prandial insulin per carb ratio of 1 unit per 11 grams CHO consumed
--- NOTE | 2022-05-20 16:49 | Electrocardiogram Report ---
Test Reason : Blood Pressure : / mmHG Vent. Rate : 076 BPM Atrial Rate : 076 BPM P-R Int : 156 ms QRS Dur : 106 ms QT Int : 398 ms P-R-T Axes : 029 -44 -30 degrees QTc Int : 447 ms Normal sinus rhythm with sinus arrhythmia Left axis deviation Minimal voltage criteria for LVH, may be normal variant Possible Anteroseptal infarct , age undetermined Abnormal ECG When compared with ECG of 28-MAR-2022 18:32, Premature atrial complexes are no longer Present Borderline criteria for Anteroseptal infarct are now Present Confirmed by Ye Padilla ([id number]) on 05/20/2022 4:49:17 PM Referred By: REFERRED SELF Confirmed By:Ye Padilla
[2022-05-20] MEDS: cefTRIAXone SODIUM 1,000 MG in DEXTROSE 5% 50 ML IV SCH (17:26)
--- NOTE | 2022-05-20 18:26 | Hospitalist Progress Note ---
Date of Service May 20, 2022 Assessment & Plan (1) L3 vertebral fracture: (2) Spinal stenosis, lumbar: Plan: This is a 77yo F with a PMH of chronic left-sided back pain, chronic neck pain, type 2 diabetes, seizure disorder, CKD 4, hypertension, history of TIA, carotic stenosis s/p carotid endarterectomy, frequent falls and other medical problems listed below who presents with worsening left hip pain. CT lumbar spine with acute to subacute nondisplaced bilateral L3 pedicle fractures. Also with a subacute/healing inferior endplate compression fracture at L2 and multilevel degenerative changes as described above most pronounced at the L4-5 level which demonstrates severe central canal narrowing. Last fall was in March 2022. No weakness, bowel or bladder incontinence noted in past few days Case discussed with Dr. Vazquez- ortho surgery consult, lumbar spine of MRI ordered MRI L-spine IMPRESSION: 1. Nondisplaced subacute bilateral L3 pedicle fractures are again noted. 2. No additional acute fractures identified within the lumbar spine. 3. Multiple old compression deformities again noted throughout the lumbar spine. 4. Multilevel lumbar spondylosis as described above most pronounced at the L3-L4 and L4-5 levels which demonstrates severe central canal narrowing. Per ortho-spine Closed fracture of pedicle of lumbar vertebra: Assessment L3 pedicle fractures.Both the CAT scan and MRI demonstrate most likely a subacute L3 pedicle fractures. This is most likely due to the autofusion from L4 to the sacrum creating adjacent level stresses. She does exhibit severe multilevel spinal stenosis but does not exhibit gross neurogenic claudicatory symptoms. At this time in light of her health history I am very hesitant to recommend any surgical intervention. We will provide her with an LSO brace to wear when out of bed. We can continue to follow this with serial CAT scans over the course of the next several months. - PRN tylenol, Tramadol for moderate-severe pain. Many medication allergies reviewed -PT/OT (3) UTI (urinary tract infection), uncomplicated: Plan: UA abnormal, 4+ bacteria present. Started empiric Rocephin. Follow urine culture (4) Seizure disorder: Plan: No seizure since 2003. Follows with Dr. Castellanos. Continue Zonegran and Lamictal (5) CKD (chronic kidney disease), stage III: Plan: History of CKD III-IV with baseline creatinine ~1.8-2. At baseline with creatinine 1.9 to now. Avoid nephrotoxic agents when able. Monitor with daily BMP (6) Hyperglycemia: (7) DM type 2 (diabetes mellitus, type 2): Plan: BSG 356 on arrival. Uncontrolled diabetes with A1c from 05/14/22 elevated at 11.8 Given 10 units of regular insulin in ER Current A1c 10.6% Hold oral home meds Glycemic pharmacy consulted for inpatient management, diabetic education and likely need for insulin at discharge, per family, patient was hesitant about insulin in the past BSG AC HS (8) Carotid stenosis: Plan: Status post remote left endarterectomy, history of TIA in 2003 Has stopped taking aspirin, statin and Plavix on her own Plan to resume aspirin, statin now. Last seen by vascular >10 years ago (9) Dyslipidemia: Plan: Unclear whether or not patient was on statin (10) Stasis dermatitis: Plan: Bilateral lower extremity erythema noted. No warmth or elevated white count to indicate cellulitis. Continue to monitor DVT Ppx: SCDs for now Code status: FULL PCP: Dr. Hood Dispo: Admitted to med/surg Admission and Anticipated Discharge Date Admission Date: May 19, 2022 Subjective Patient seen in follow-up of back pain, also found to have uncontrolled diabetes Seen by orthospine, no surgical intervention planned, back brace ordered Family at the bedside, updated Per family, patient hesitant to insulin for some time Patient is lying in bed, in no acute distress. Lower extremity edema pretty much resolved. No fevers chills, chest pain shortness of breath, abdominal pain, nausea vomiting Review of Systems Review of Systems: All systems reviewed & are unremarkable except as noted in Subjective Physical Exam Physical Exam: NAD, well developed Card: normal S1/S2, no murmur Lungs: CTA, no wheezing Abd: ND, NT, soft MSK: b/l LE pitting edema with b/l skin erythema Psych: AAOx3, normal affect Results & Data Results & Data ([facility]) Vital Signs (Past 12 Hours) Vital Signs Temp Pulse Resp BP BP Pulse Ox O2 Del Method 05/20/22 15:10 36.6 C 79 18 112/66 96 Room Air 05/20/22 07:02 36.5 C 73 18 154/76 H 96 Room Air Laboratory Results 05/20/22 05/20/22 05/20/22 Range/Units 17:10 12:13 07:36 WBC (4.8-10.8) K/ul RBC (3.93-5.22) M/uL Hgb (12.0-16.0) g/dl Hct (34.1-44.9) % MCV (80.0-100.0) fL MCH (25.0-34.0) pg MCHC (32.0-36.0) g/dL RDW Std Deviation (36.4-46.3) fL RDW Coeff of Tony (11.5-14.5) % Plt Count (130-400) K/uL MPV (9.4-12.3) fL Sodium (136-145) mmol/L Potassium (3.5-5.1) mmol/L Chloride (98-107) mmol/L Carbon Dioxide (21-32) mmol/L Anion Gap (3-11) BUN (6-23) mg/dl Creatinine (0.6-1.2) mg/dl Est Cr Clr Drug Dosing ml/min Est GFR ( Amer) ml/min Est GFR (Non-Af Amer) ml/min BUN/Creatinine Ratio (10-20) Glucose (70-99(Fasting)) mg/dl POC Glucose 122 H 228 H (70-99) mg/dl Estimat Average Glucose 258 mg/dl Hemoglobin A1c 10.6 H (4.5-5.6) % Calcium (8.5-10.1) mg/dl 05/20/22 05/20/22 05/20/22 Range/Units 07:36 07:36 06:02 WBC 7.58 (4.8-10.8) K/ul RBC 3.70 L (3.93-5.22) M/uL Hgb 11.5 L (12.0-16.0) g/dl Hct 35.7 (34.1-44.9) % MCV 96.5 (80.0-100.0) fL MCH 31.1 (25.0-34.0) pg MCHC 32.2 (32.0-36.0) g/dL RDW Std Deviation 48.5 H (36.4-46.3) fL RDW Coeff of Tony 13.6 (11.5-14.5) % Plt Count 223 (130-400) K/uL MPV 9.1 L (9.4-12.3) fL Sodium 138 (136-145) mmol/L Potassium 4.5 (3.5-5.1) mmol/L Chloride 106 (98-107) mmol/L Carbon Dioxide 26 (21-32) mmol/L Anion Gap 6 (3-11) BUN 16 (6-23) mg/dl Creatinine 1.75 H (0.6-1.2) mg/dl Est Cr Clr Drug Dosing 25.0 ml/min Est GFR ( Amer) 32.2 ml/min Est GFR (Non-Af Amer) 27.8 ml/min BUN/Creatinine Ratio 9.1 L (10-20) Glucose 141 H (70-99(Fasting)) mg/dl POC Glucose 133 H (70-99) mg/dl Estimat Average Glucose mg/dl Hemoglobin A1c (4.5-5.6) % Calcium 8.2 L (8.5-10.1) mg/dl 05/20/22 05/19/22 05/19/22 Range/Units 00:19 20:45 18:29 WBC (4.8-10.8) K/ul RBC (3.93-5.22) M/uL Hgb (12.0-16.0) g/dl Hct (34.1-44.9) % MCV (80.0-100.0) fL MCH (25.0-34.0) pg MCHC (32.0-36.0) g/dL RDW Std Deviation (36.4-46.3) fL RDW Coeff of Tony (11.5-14.5) % Plt Count (130-400) K/uL MPV (9.4-12.3) fL Sodium (136-145) mmol/L Potassium (3.5-5.1) mmol/L Chloride (98-107) mmol/L Carbon Dioxide (21-32) mmol/L Anion Gap (3-11) BUN (6-23) mg/dl Creatinine (0.6-1.2) mg/dl Est Cr Clr Drug Dosing ml/min Est GFR ( Amer) ml/min Est GFR (Non-Af Amer) ml/min BUN/Creatinine Ratio (10-20) Glucose (70-99(Fasting)) mg/dl POC Glucose 152 H 97 187 H (70-99) mg/dl Estimat Average Glucose mg/dl Hemoglobin A1c (4.5-5.6) % Calcium (8.5-10.1) mg/dl Medications Administered Current Inpatient Medications Ascorbic Acid (Ascorbic Acid 500 Mg Tab) 1,000 mg PO QAM [facility] Stop: 06/19/22 08:59 Last Admin: 05/20/22 07:45 Dose: 1,000 mg Cyanocobalamin (Cyanocobalamin (B-12) 500 Mcg Tablet) [facility] [place] [place]: 06/19/22 08:59 Last Admin: 05/20/22 07:46 Dose: 500 mcg Dextrose (Dextrose 50% 50 Ml Syringe) 25 - 50 ml IV UD PRN; Protocol PRN Reason: Hypoglycemia Protocol Stop: 06/18/22 17:36 Glucagon (Glucagon For Inj 1 Mg Vial) 1 mg SQ UD PRN; Protocol PRN Reason: Hypoglycemia Protocol Stop: 06/18/22 17:36 Glucose (Glucose 40% Gel 15 Gm Tube) 15 - 30 gm PO UD PRN; Protocol PRN Reason: Hypoglycemia Protocol Stop: 06/18/22 17:36 Glucose (Glucose 10 Tab/Tube) 4 - 8 tab PO UD PRN; Protocol PRN Reason: Hypoglycemia Treatment Stop: 06/18/22 17:36 Ceftriaxone Sodium 1,000 mg/ (Dextrose) 60 mls @ 100 mls/hr IV DAILY@1800 [facility]; Protocol Stop: 05/24/22 17:59 Last Infusion: 05/20/22 18:05 Dose: Infused Insulin Aspart (Insulin Aspart Per Unit) 0 units SC ACHS [facility] Stop: 06/19/22 00:00 Last Admin: 05/20/22 17:26 Dose: Not Given Insulin Glargine (Lantus Per Unit Charge) 0 units SQ HS ONE; Protocol Stop: 05/20/22 21:01 Lamotrigine (Lamotrigine 100 Mg Tab) 100 mg PO BID [facility] Stop: 06/18/22 20:59 Last Admin: 05/20/22 07:45 Dose: 100 mg Miscellaneous (Carbohydrates For Hypoglycemia ) 15 - 30 gm PO UD PRN PRN Reason: Hypoglycemia Protocol Stop: 06/18/22 17:36 Miscellaneous Information (Pharmacy Glycemic Mgmt Consult) 1 each N/A UD PRN PRN Reason: Consult Stop: 06/18/22 15:48 Tramadol HCl (Tramadol Hcl 50 Mg Tablet) 50 mg PO BID PRN PRN Reason: Pain Stop: 06/18/22 16:41 Last Admin: 05/20/22 01:38 Dose: 50 mg Zonisamide (Zonisamide 100 Mg Capsule) 200 mg PO BID [facility] Stop: 06/19/22 08:59 Last Admin: 05/20/22 08:03 Dose: 200 mg (1) CKD (chronic kidney disease), stage III Chronic kidney disease stage 3 subtype: unspecified whether 3a or 3b Qualified Code(s): N18.30 - Chronic kidney disease, stage 3 unspecified
[2022-05-21] MEDS: traMADol HCL 50 MG TABLET PO PRN (03:24)
[2022-05-21] MEDS: ASCORBIC ACID 500 MG TAB PO SCH (08:46)
[2022-05-21] MEDS: CYANOCOBALAMIN (B-12) 500 MCG TABLET PO SCH (08:47)
[2022-05-21] MEDS: lamoTRIgine 100 MG TAB PO SCH ×2 (08:47→19:36)
[2022-05-21] MEDS: ZONISAMIDE 100 MG CAPSULE PO SCH ×2 (08:48→19:36)
[2022-05-21 08:50] LABS: Hemoglobin 11.8 g/dl (12.0-16.0); Mean Corpuscular Hemoglobin 30.6 pg (25.0-34.0); Mean Corpuscular Hgb Conc 31.9 g/dL (32.0-36.0); Mean Corpuscular Volume 95.9 fL (80.0-100.0); Mean Platelet Volume 8.9 fL (9.4-12.3); Platelet Count 237 K/uL (130-400); RDW Coefficient of Variation 13.6 % (11.5-14.5); RDW Standard Deviation 48.4 fL (36.4-46.3); Red Blood Count 3.86 M/uL (3.93-5.22); White Blood Count 9.85 K/ul (4.8-10.8)
[2022-05-21] MEDS: INSULIN ASPART PER UNIT SC SCH ×4 (08:59→20:44)
[2022-05-21] MEDS: LANTUS PER UNIT CHARGE SQ SCH ×2 (09:00→20:43)
[2022-05-21 09:18] LABS: BUN Creatinine Ratio 10.2 (10-20); Calcium 8.4 mg/dl (8.5-10.1); Creatinine Clr Calc Pharmacy 24.8 ml/min; Est GFR (Non-African American) 27.6 ml/min; Potassium 4.4 mmol/L (3.5-5.1)
--- NOTE | 2022-05-21 12:36 | Pharmacy Report ---
Pharmacy Glycemic Short Note 2 - Date of Service May 21, 2022 - Glycemic Short BSG Results (Last 24 hours): 05/20/22 05/20/22 05/21/22 17:10 20:35 08:05 Glucose POC Glucose 122 H 190 H 134 H 05/21/22 05/21/22 08:28 11:56 Glucose 137 H POC Glucose 139 H OUTPATIENT ANTIDIABETIC REGIMEN: * Glipizide XL 10 mg qAM, metformin 500 mg qAM * A1c 10.6% 05/20/22 ASSESSMENT: 05/21/22: * Radha received 29 units of SQ insulin yesterday (Lantus 20 units + Novolog 9 units) * Fasting BSG is at goal. Will continue current Lantus order of 5-10 units dosed per scale. * Post prandial BSGs fluctuated yesterday. Will tighten carb coverage, slightly loosen correction factor 05/20/22: * Patient admitted with vertebral fracture, BSG elevated on admission, trended down with initiation of of novolog/lantus last PM * A1c 10.6%, holding home oral medications at this time; may be candidate to start insulin on outpatient, prosthodontist/educator consulted * Patient ordered diet this AM, will monitor for need to tighten carb ratio. PLAN FOR INPATIENT GLYCEMIC CONTROL: * Hold outpatient oral diabetes medications * Basal insulin * Lantus 5-10 units SQ BID per scale * Bolus insulin * NovoLog per scale ACHS or Q6hrs while NPO * Goal Range: Low 120 mg/dL - High 150 mg/dL * Correction Factor: 25 mg/dL/unit * Nutritional / Prandial insulin per carb ratio of 1 unit per 9 grams CHO consumed
[2022-05-21] MEDS: cefTRIAXone SODIUM 1,000 MG in DEXTROSE 5% 50 ML IV SCH (18:16)
[2022-05-22] MEDS: traMADol HCL 50 MG TABLET PO PRN (03:16)
--- NOTE | 2022-05-22 07:49 | Hospitalist Progress Note ---
Date of Service May 21, 2022 Assessment & Plan (1) L3 vertebral fracture: (2) Spinal stenosis, lumbar: Plan: This is a 77yo F with a PMH of chronic left-sided back pain, chronic neck pain, type 2 diabetes, seizure disorder, CKD 4, hypertension, history of TIA, carotic stenosis s/p carotid endarterectomy, frequent falls and other medical problems listed below who presents with worsening left hip pain. CT lumbar spine with acute to subacute nondisplaced bilateral L3 pedicle fractures. Also with a subacute/healing inferior endplate compression fracture at L2 and multilevel degenerative changes as described above most pronounced at the L4-5 level which demonstrates severe central canal narrowing. Last fall was in March 2022. No weakness, bowel or bladder incontinence noted in past few days Case discussed with Dr. Vazquez- ortho surgery consult, lumbar spine of MRI ordered MRI L-spine IMPRESSION: 1. Nondisplaced subacute bilateral L3 pedicle fractures are again noted. 2. No additional acute fractures identified within the lumbar spine. 3. Multiple old compression deformities again noted throughout the lumbar spine. 4. Multilevel lumbar spondylosis as described above most pronounced at the L3-L4 and L4-5 levels which demonstrates severe central canal narrowing. Per ortho-spine Closed fracture of pedicle of lumbar vertebra: Assessment L3 pedicle fractures.Both the CAT scan and MRI demonstrate most likely a subacute L3 pedicle fractures. This is most likely due to the autofusion from L4 to the sacrum creating adjacent level stresses. She does exhibit severe multilevel spinal stenosis but does not exhibit gross neurogenic claudicatory symptoms. At this time in light of her health history I am very hesitant to recommend any surgical intervention. We will provide her with an LSO brace to wear when out of bed. We can continue to follow this with serial CAT scans over the course of the next several months. - PRN tylenol, Tramadol for moderate-severe pain. Many medication allergies reviewed -PT/OT 05/21 Now patient states that her back is not bothering her, however complains of right foot pain, will obtain x-ray No edema or erythema of ankle noted, very minimal tenderness to palpation of plantar surface (3) UTI (urinary tract infection), uncomplicated: Plan: UA abnormal, 4+ bacteria present. Started empiric Rocephin. Urine culture positive for Klebsiella pneumonia -continue Rocephin while inpt (4) Seizure disorder: Plan: No seizure since 2003. Follows with Dr. Castellanos. Continue Zonegran and Lamictal (5) CKD (chronic kidney disease), stage III: Plan: History of CKD III-IV with baseline creatinine ~1.8-2. At baseline with creatinine 1.9 to now. Avoid nephrotoxic agents when able. Monitor with daily BMP (6) Hyperglycemia: (7) DM type 2 (diabetes mellitus, type 2): Plan: BSG 356 on arrival. Uncontrolled diabetes with A1c from 05/14/22 elevated at 11. 8 Given 10 units of regular insulin in ER Current A1c 10.6% Hold oral home meds Glycemic pharmacy consulted for inpatient management, diabetic education and likely need for insulin at discharge, per family, patient was hesitant about insulin in the past BSG AC HS (8) Carotid stenosis: Plan: Status post remote left endarterectomy, history of TIA in 2003 Has stopped taking aspirin, statin and Plavix on her own Plan to resume aspirin, statin now. Last seen by vascular >10 years ago (9) Dyslipidemia: Plan: Unclear whether or not patient was on statin (10) Stasis dermatitis: Plan: Bilateral lower extremity erythema noted. No warmth or elevated white count to indicate cellulitis. Continue to monitor DVT Ppx: SCDs for now Code status: FULL PCP: Dr. Hood Dispo: Admitted to med/surg Admission and Anticipated Discharge Date Admission Date: May 19, 2022 Subjective Patient seen in follow-up of back pain, also found to have uncontrolled diabetes Seen by orthospine, no surgical intervention planned, back brace ordered Per family, patient hesitant to insulin in the past Patient is lying in bed, in no acute distress. Lower extremity edema pretty much resolved but she complains of right ankle pain. No fevers chills, chest pain shortness of breath, abdominal pain, nausea vomiting Review of Systems Review of Systems: All systems reviewed & are unremarkable except as noted in Subjective Physical Exam Physical Exam: NAD, well developed Card: normal S1/S2, no murmur Lungs: CTA, no wheezing Abd: ND, NT, soft MSK: b/l LE trace edema with mild b/l skin erythema (much improved), minimal tenderness to palpation of right foot Psych: AAOx3, normal affect Results & Data Results & Data ([facility]) Vital Signs (Past 12 Hours) Vital Signs Temp Pulse Resp BP BP Pulse Ox O2 Del Method 05/21/22 22:16 37.8 C H 81 18 145/50 H 93 Room Air Laboratory Results 05/21/22 05/21/22 05/21/22 Range/Units 20:35 17:08 11:56 WBC (4.8-10.8) K/ul RBC (3.93-5.22) M/uL Hgb (12.0-16.0) g/dl Hct (34.1-44.9) % MCV (80.0-100.0) fL MCH (25.0-34.0) pg MCHC (32.0-36.0) g/dL RDW Std Deviation (36.4-46.3) fL RDW Coeff of Tony (11.5-14.5) % Plt Count (130-400) K/uL MPV (9.4-12.3) fL Sodium (136-145) mmol/L Potassium (3.5-5.1) mmol/L Chloride (98-107) mmol/L Carbon Dioxide (21-32) mmol/L Anion Gap (3-11) BUN (6-23) mg/dl Creatinine (0.6-1.2) mg/dl Est Cr Clr Drug Dosing ml/min Est GFR ( Amer) ml/min Est GFR (Non-Af Amer) ml/min BUN/Creatinine Ratio (10-20) Glucose (70-99(Fasting)) mg/dl POC Glucose 153 H 139 H 139 H (70-99) mg/dl Calcium (8.5-10.1) mg/dl 05/21/22 05/21/22 05/21/22 Range/Units 08:28 08:28 08:05 WBC 9.85 (4.8-10.8) K/ul RBC 3.86 L (3.93-5.22) M/uL Hgb 11.8 L (12.0-16.0) g/dl Hct 37.0 (34.1-44.9) % MCV 95.9 (80.0-100.0) fL MCH 30.6 (25.0-34.0) pg MCHC 31.9 L (32.0-36.0) g/dL RDW Std Deviation 48.4 H (36.4-46.3) fL RDW Coeff of Tony 13.6 (11.5-14.5) % Plt Count 237 (130-400) K/uL MPV 8.9 L (9.4-12.3) fL Sodium 135 L (136-145) mmol/L Potassium 4.4 (3.5-5.1) mmol/L Chloride 105 (98-107) mmol/L Carbon Dioxide 24 (21-32) mmol/L Anion Gap 6 (3-11) BUN 18 (6-23) mg/dl Creatinine 1.76 H (0.6-1.2) mg/dl Est Cr Clr Drug Dosing 24.8 ml/min Est GFR ( Amer) 32.0 ml/min Est GFR (Non-Af Amer) 27.6 ml/min BUN/Creatinine Ratio 10.2 (10-20) Glucose 137 H (70-99(Fasting)) mg/dl POC Glucose 134 H (70-99) mg/dl Calcium 8.4 L (8.5-10.1) mg/dl Medications Administered Current Inpatient Medications Acetaminophen (Acetaminophen 325 Mg Tab) 650 mg PO Q4H PRN PRN Reason: Pain Stop: 06/20/22 09:14 Ascorbic Acid (Ascorbic Acid 500 Mg Tab) 1,000 mg PO QAM [facility] Stop: 06/19/22 08:59 Last Admin: 05/21/22 08:46 Dose: 1,000 mg Cyanocobalamin (Cyanocobalamin (B-12) 500 Mcg Tablet) 500 mcg PO QAM [facility] Stop: 06/19/22 08:59 Last Admin: 05/21/22 08:47 Dose: 500 mcg Dextrose (Dextrose 50% 50 Ml Syringe) 25 - 50 ml IV UD PRN; Protocol PRN Reason: Hypoglycemia Protocol Stop: 06/18/22 17:36 Glucagon (Glucagon For Inj 1 Mg Vial) 1 mg SQ UD PRN; Protocol PRN Reason: Hypoglycemia Protocol Stop: 06/18/22 17:36 Glucose (Glucose 40% Gel 15 Gm Tube) 15 - 30 gm PO UD PRN; Protocol PRN Reason: Hypoglycemia Protocol Stop: 06/18/22 17:36 Glucose (Glucose 10 Tab/Tube) 4 - 8 tab PO UD PRN; Protocol PRN Reason: Hypoglycemia Treatment Stop: 06/18/22 17:36 Ceftriaxone Sodium 1,000 mg/ (Dextrose) 60 mls @ 100 mls/hr IV DAILY@1800 [facility]; Protocol Stop: 05/24/22 17:59 Last Infusion: 05/21/22 19:11 Dose: Infused Insulin Aspart (Insulin Aspart Per Unit) 0 units SC ACHS [facility] Stop: 06/19/22 00:00 Last Admin: 05/21/22 20:44 Dose: 1 units Insulin Glargine (Lantus Per Unit Charge) 0 units SQ BID [facility]; Protocol Stop: 06/20/22 08:59 Last Admin: 05/21/22 20:43 Dose: 10 units Lamotrigine (Lamotrigine 100 Mg Tab) 100 mg PO BID [facility] Stop: 06/18/22 20:59 Last Admin: 05/21/22 19:36 Dose: 100 mg Miscellaneous (Carbohydrates For Hypoglycemia ) 15 - 30 gm PO UD PRN PRN Reason: Hypoglycemia Protocol Stop: 06/18/22 17:36 Miscellaneous Information (Pharmacy Glycemic Mgmt Consult) 1 each N/A UD PRN PRN Reason: Consult Stop: 06/18/22 15:48 Tramadol HCl (Tramadol Hcl 50 Mg Tablet) 50 mg PO BID PRN PRN Reason: Pain Stop: 06/18/22 16:41 Last Admin: 05/22/22 03:16 Dose: 50 mg Zonisamide (Zonisamide 100 Mg Capsule) 200 mg PO BID [facility] Stop: 06/19/22 08:59 Last Admin: 05/21/22 19:36 Dose: 200 mg (1) CKD (chronic kidney disease), stage III Chronic kidney disease stage 3 subtype: unspecified whether 3a or 3b Qualified Code(s): N18.30 - Chronic kidney disease, stage 3 unspecified
--- NOTE | 2022-05-22 08:20 | Hospitalist Progress Note ---
Date of Service May 22, 2022 Assessment & Plan (1) L3 vertebral fracture: (2) Spinal stenosis, lumbar: Plan: This is a 77yo F with a PMH of chronic left-sided back pain, chronic neck pain, type 2 diabetes, seizure disorder, CKD 4, hypertension, history of TIA, carotic stenosis s/p carotid endarterectomy, frequent falls and other medical problems listed below who presents with worsening left hip pain. CT lumbar spine with acute to subacute nondisplaced bilateral L3 pedicle fractures. Also with a subacute/healing inferior endplate compression fracture at L2 and multilevel degenerative changes as described above most pronounced at the L4-5 level which demonstrates severe central canal narrowing. Last fall was in March 2022. No weakness, bowel or bladder incontinence noted in past few days Case discussed with Dr. Vazquez- ortho surgery consult, lumbar spine of MRI ordered MRI L-spine IMPRESSION: 1. Nondisplaced subacute bilateral L3 pedicle fractures are again noted. 2. No additional acute fractures identified within the lumbar spine. 3. Multiple old compression deformities again noted throughout the lumbar spine. 4. Multilevel lumbar spondylosis as described above most pronounced at the L3-L4 and L4-5 levels which demonstrates severe central canal narrowing. Per ortho-spine Closed fracture of pedicle of lumbar vertebra: Assessment L3 pedicle fractures.Both the CAT scan and MRI demonstrate most likely a subacute L3 pedicle fractures. This is most likely due to the autofusion from L4 to the sacrum creating adjacent level stresses. She does exhibit severe multilevel spinal stenosis but does not exhibit gross neurogenic claudicatory symptoms. At this time in light of her health history I am very hesitant to recommend any surgical intervention. We will provide her with an LSO brace to wear when out of bed. We can continue to follow this with serial CAT scans over the course of the next several months. - PRN tylenol, Tramadol for moderate-severe pain. Many medication allergies reviewed -PT/OT 05/21 R foot pain Now patient states that her back is not bothering her, however complains of right foot pain, will obtain x-ray No edema or erythema of ankle noted, very minimal tenderness to palpation of plantar surface R foot XR FINDINGS: Mild diffuse soft tissue swelling/edema. Small posterior calcaneal spur. Mild vascular calcifications are noted. The bones are osteopenic. Suboptimal positioning of the right foot. There appear to be old, healed fractures at the third through fifth metatarsals. No definite acute fracture or dislocation within the right foot. The Lisfranc joint appears intact. IMPRESSION: 1. Old, healed third through fifth metatarsal fractures. 2. No definite acute fracture or dislocation within the right foot. 3. Diffuse osteopenia and degenerative changes. 05/20 -patient denies back pain, reports posterior lower extremity tenderness to palpation bilaterally -We will obtain Dopplers (3) UTI (urinary tract infection), uncomplicated: Plan: UA abnormal, 4+ bacteria present. Started empiric Rocephin. Urine culture positive for Klebsiella pneumonia -continue Rocephin while inpt (4) Seizure disorder: Plan: No seizure since 2003. Follows with Dr. Castellanos. Continue Zonegran and Lamictal (5) CKD (chronic kidney disease), stage III: Plan: History of CKD III-IV with baseline creatinine ~1.8-2. At baseline with creatinine 1.9 to now. Avoid nephrotoxic agents when able. Monitor with daily BMP (6) Hyperglycemia: (7) DM type 2 (diabetes mellitus, type 2): Plan: BSG 356 on arrival. Uncontrolled diabetes with A1c from 05/14/22 elevated at 11.8 Given 10 units of regular insulin in ER Current A1c 10.6% Hold oral home meds Glycemic pharmacy consulted for inpatient management, diabetic education and likely need for insulin at discharge, per family, patient was hesitant about insulin in the past BSG AC HS (8) Carotid stenosis: Plan: Status post remote left endarterectomy, history of TIA in 2003 Has stopped taking aspirin, statin and Plavix on her own Plan to resume aspirin, statin now. Last seen by vascular >10 years ago (9) Dyslipidemia: Plan: Unclear whether or not patient was on statin (10) Stasis dermatitis: Plan: Bilateral lower extremity erythema noted. No warmth or elevated white count to indicate cellulitis. Continue to monitor DVT Ppx: SCDs for now Code status: FULL PCP: Dr. Hood Dispo: Admitted to med/surg Admission and Anticipated Discharge Date Admission Date: May 19, 2022 Subjective Patient seen in follow-up of back pain, also found to have uncontrolled diabetes Seen by orthospine, no surgical intervention planned, back brace ordered Per family, patient hesitant to insulin in the past Patient is lying in bed, in no acute distress. Lower extremity edema noted on admission mostly resolved but pt complained of right ankle pain - XR obtained. Now reports posterior leg pain bilaterally. Denies any significant back pain. No fevers chills, chest pain shortness of breath, abdominal pain, nausea vomiting Review of Systems Review of Systems: All systems reviewed & are unremarkable except as noted in Subjective Physical Exam Physical Exam: NAD, well developed Card: normal S1/S2, no murmur Lungs: CTA, no wheezing Abd: ND, NT, soft MSK: b/l LE trace edema with mild b/l skin erythema (much improved), minimal tenderness to palpation of right foot, + mild tenderness to palp post. LE b/l Psych: AAOx3, normal affect Results & Data Results & Data ([facility]) Vital Signs (Past 12 Hours) Vital Signs Temp Pulse Resp BP BP Pulse Ox O2 Del Method 05/22/22 07:15 36.8 C 73 18 131/73 96 Room Air 05/21/22 22:16 37.8 C H 81 18 145/50 H 93 Room Air Laboratory Results 05/21/22 05/21/22 05/21/22 Range/Units 20:35 17:08 11:56 WBC (4.8-10.8) K/ul RBC (3.93-5.22) M/uL Hgb (12.0-16.0) g/dl Hct (34.1-44.9) % MCV (80.0-100.0) fL MCH (25.0-34.0) pg MCHC (32.0-36.0) g/dL RDW Std Deviation (36.4-46.3) fL RDW Coeff of Tony (11.5-14.5) % Plt Count (130-400) K/uL MPV (9.4-12.3) fL Sodium (136-145) mmol/L Potassium (3.5-5.1) mmol/L Chloride (98-107) mmol/L Carbon Dioxide (21-32) mmol/L Anion Gap (3-11) BUN (6-23) mg/dl Creatinine (0.6-1.2) mg/dl Est Cr Clr Drug Dosing ml/min Est GFR ( Amer) ml/min Est GFR (Non-Af Amer) ml/min BUN/Creatinine Ratio (10-20) Glucose (70-99(Fasting)) mg/dl POC Glucose 153 H 139 H 139 H (70-99) mg/dl Calcium (8.5-10.1) mg/dl 05/21/22 05/21/22 Range/Units 08:28 08:28 WBC 9.85 (4.8-10.8) K/ul RBC 3.86 L (3.93-5.22) M/uL Hgb 11.8 L (12.0-16.0) g/dl Hct 37.0 (34.1-44.9) % MCV 95.9 (80.0-100.0) fL MCH 30.6 (25.0-34.0) pg MCHC 31.9 L (32.0-36.0) g/dL RDW Std Deviation 48.4 H (36.4-46.3) fL RDW Coeff of Tony 13.6 (11.5-14.5) % Plt Count 237 (130-400) K/uL MPV 8.9 L (9.4-12.3) fL Sodium 135 L (136-145) mmol/L Potassium 4.4 (3.5-5.1) mmol/L Chloride 105 (98-107) mmol/L Carbon Dioxide 24 (21-32) mmol/L Anion Gap 6 (3-11) BUN 18 (6-23) mg/dl Creatinine 1.76 H (0.6-1.2) mg/dl Est Cr Clr Drug Dosing 24.8 ml/min Est GFR ( Amer) 32.0 ml/min Est GFR (Non-Af Amer) 27.6 ml/min BUN/Creatinine Ratio 10.2 (10-20) Glucose 137 H (70-99(Fasting)) mg/dl POC Glucose (70-99) mg/dl Calcium 8.4 L (8.5-10.1) mg/dl Medications Administered Current Inpatient Medications Acetaminophen (Acetaminophen 325 Mg Tab) 650 mg PO Q4H PRN PRN Reason: Pain Stop: 06/20/22 09:14 Ascorbic Acid (Ascorbic Acid 500 Mg Tab) 1,000 mg PO [facility] Stop: 06/19/22 08:59 Last Admin: 05/21/22 08:46 Dose: 1,000 mg Aspirin (Aspirin 81 Mg Ectab) 81 mg PO [facility] Stop: 06/21/22 08:59 Cyanocobalamin (Cyanocobalamin (B-12) 500 Mcg Tablet) 500 mcg PO QAM [facility] Stop: 06/19/22 08:59 Last Admin: 05/21/22 08:47 Dose: 500 mcg Dextrose (Dextrose 50% 50 Ml Syringe) 25 - 50 ml IV UD PRN; Protocol PRN Reason: Hypoglycemia Protocol Stop: 06/18/22 17:36 Glucagon (Glucagon For Inj 1 Mg Vial) 1 mg SQ UD PRN; Protocol PRN Reason: Hypoglycemia Protocol Stop: 06/18/22 17:36 Glucose (Glucose 40% Gel 15 Gm Tube) 15 - 30 gm PO UD PRN; Protocol PRN Reason: Hypoglycemia Protocol Stop: 06/18/22 17:36 Glucose (Glucose 10 Tab/Tube) 4 - 8 tab PO UD PRN; Protocol PRN Reason: Hypoglycemia Treatment Stop: 06/18/22 17:36 Ceftriaxone Sodium 1,000 mg/ (Dextrose) 60 mls @ 100 mls/hr IV DAILY@1800 [facility]; Protocol Stop: 05/24/22 17:59 Last Infusion: 05/21/22 19:11 Dose: Infused Insulin Aspart (Insulin Aspart Per Unit) 0 units SC ACHS [facility] Stop: 06/19/22 00:00 Last Admin: 05/21/22 20:44 Dose: 1 units Insulin Glargine (Lantus Per Unit Charge) 0 units SQ BID [facility]; Protocol Stop: 06/20/22 08:59 Last Admin: 05/21/22 20:43 Dose: 10 units Lamotrigine (Lamotrigine 100 Mg Tab) 100 mg PO BID [facility] Stop: 06/18/22 20:59 Last Admin: 05/21/22 19:36 Dose: 100 mg Miscellaneous (Carbohydrates For Hypoglycemia ) 15 - 30 gm PO UD PRN PRN Reason: Hypoglycemia Protocol Stop: 06/18/22 17:36 Miscellaneous Information (Pharmacy Glycemic Mgmt Consult) 1 each N/A UD PRN PRN Reason: Consult Stop: 06/18/22 15:48 Tramadol HCl (Tramadol Hcl 50 Mg Tablet) 50 mg PO BID PRN PRN Reason: Pain Stop: 06/18/22 16:41 Last Admin: 05/22/22 03:16 Dose: 50 mg Zonisamide (Zonisamide 100 Mg Capsule) 200 mg PO BID [facility] Stop: 06/19/22 08:59 Last Admin: 05/21/22 19:36 Dose: 200 mg (1) CKD (chronic kidney disease), stage III Chronic kidney disease stage 3 subtype: unspecified whether 3a or 3b Qualified Code(s): N18.30 - Chronic kidney disease, stage 3 unspecified
[2022-05-22] MEDS: lamoTRIgine 100 MG TAB PO SCH ×2 (09:26→20:51)
[2022-05-22] MEDS: ZONISAMIDE 100 MG CAPSULE PO SCH ×2 (09:26→20:50)
[2022-05-22] MEDS: ASCORBIC ACID 500 MG TAB PO SCH (09:26)
[2022-05-22] MEDS: CYANOCOBALAMIN (B-12) 500 MCG TABLET PO SCH (09:26)
[2022-05-22] MEDS: INSULIN ASPART PER UNIT SC SCH ×4 (09:27→20:52)
--- NOTE | 2022-05-22 09:27 | XRay Report ---
XR foot RT min 3V routine CLINICAL HISTORY: Right foot pain. COMPARISON STUDY: None. FINDINGS: Mild diffuse soft tissue swelling/edema. Small posterior calcaneal spur. Mild vascular calc ifications are noted. The bones are osteopenic. Suboptimal positioning of the right foot. There appea r to be old, healed fractures at the third through fifth metatarsals. No definite acute fracture or d islocation within the right foot. The Lisfranc joint appears intact. IMPRESSION: 1. Old, healed third through fifth metatarsal fractures. 2. No definite acute fracture or dislocation within the right foot. 3. Diffuse osteopenia and degenerative changes. ACT 112: Negative or not required by law. Electronically signed by: Golden Harris M.D. 05/22/2022 9:26 AM
[2022-05-22] MEDS: LANTUS PER UNIT CHARGE SQ SCH (09:32)
[2022-05-22] MEDS: ACETAMINOPHEN 325 MG TAB PO PRN (09:32)
--- NOTE | 2022-05-22 11:03 | Ultrasound Report ---
BILATERAL LOWER EXTREMITY VENOUS DOPPLER HISTORY: Bilateral lower extremity pain, edema COMPARISON STUDY: None. FINDINGS: There is normal compressibility, flow, and augmentation within the bilateral lower extremit y deep venous systems. IMPRESSION: No DVT within the right or left lower extremity. ACT 112: Negative or not required by law. Electronically signed by: Golden Harris M.D. 05/22/2022 11:01 AM
[2022-05-22] MEDS: ASPIRIN 81 MG ECTAB PO SCH (12:01)
--- NOTE | 2022-05-22 14:12 | Pharmacy Report ---
Pharmacy Glycemic Short Note 2 - Date of Service May 22, 2022 - Glycemic Short BSG Results (Last 24 hours): 05/21/22 05/21/22 05/22/22 17:08 20:35 08:18 POC Glucose 139 H 153 H 99 05/22/22 12:00 POC Glucose 169 H OUTPATIENT ANTIDIABETIC REGIMEN: * Glipizide XL 10 mg qAM, metformin 500 mg qAM * A1c 10.6% 05/20/22 ASSESSMENT: 05/22/22 * Patient's BSGs yesterday were [id number] mg/dL. Patient received 31 units of insulin (20 units of basal and 11 units of bolus). * Patient's BSGs today are 98-169 mg/dL. Patient refused all Novolog today but did take 5 units of basal. * Will change to patient's home regimen of glipizide XL 10 mg daily plus Metformin 500 mg daily. * Will change Lantus to once daily to ease number of injections for patient. 05/21/22: * Radha received 29 units of SQ insulin yesterday (Lantus 20 units + Novolog 9 units) * Fasting BSG is at goal. Will continue current Lantus order of 5-10 units dosed per scale. * Post prandial BSGs fluctuated yesterday. Will tighten carb coverage, slightly loosen correction factor 05/20/22: * Patient admitted with vertebral fracture, BSG elevated on admission, trended down with initiation of of novolog/lantus last PM * A1c 10.6%, holding home oral medications at this time; may be candidate to start insulin on outpatient, clinical unit educator consulted * Patient ordered diet this AM, will monitor for need to tighten carb ratio. PLAN FOR INPATIENT GLYCEMIC CONTROL: * glipizide XL 10 mg daily + metformin 500 mg PO daily * Basal insulin * Lantus 15 units SQ daily * Bolus insulin * NovoLog per scale ACHS or Q6hrs while NPO * Goal Range: Low 120 mg/dL - High 150 mg/dL * Correction Factor: 25 mg/dL/unit * Nutritional / Prandial insulin per carb ratio of 1 unit per -- grams CHO consumed
[2022-05-22] MEDS ORDERED: metFORMIN HCL 500 MG TAB PO ONE (16:30)
[2022-05-22] MEDS: glipiZIDE ER 2.5 MG TABCR PO SCH (16:49)
[2022-05-22] MEDS: cefTRIAXone SODIUM 1,000 MG in DEXTROSE 5% 50 ML IV SCH (17:59)
[2022-05-22] MEDS ORDERED: LANTUS PER UNIT CHARGE SQ SCH (21:00)
[2022-05-23] MEDS: ASPIRIN 81 MG ECTAB PO SCH (08:29)
[2022-05-23] MEDS: ASCORBIC ACID 500 MG TAB PO SCH (08:29)
[2022-05-23] MEDS: lamoTRIgine 100 MG TAB PO SCH ×2 (08:30→20:47)
[2022-05-23] MEDS: ZONISAMIDE 100 MG CAPSULE PO SCH ×2 (08:30→20:47)
[2022-05-23] MEDS: CYANOCOBALAMIN (B-12) 500 MCG TABLET PO SCH (08:30)
[2022-05-23] MEDS: glipiZIDE ER 2.5 MG TABCR PO SCH (08:30)
[2022-05-23] MEDS: INSULIN ASPART PER UNIT SC SCH ×4 (08:31→20:46)
[2022-05-23] MEDS ORDERED: metFORMIN HCL 500 MG TAB PO SCH (09:00)
[2022-05-23] MEDS ORDERED: LANTUS PER UNIT CHARGE SQ SCH (09:00)
--- NOTE | 2022-05-23 12:17 | Hospitalist Progress Note ---
Date of Service May 23, 2022 Assessment & Plan (1) L3 vertebral fracture: (2) Spinal stenosis, lumbar: Plan: This is a 77yo F with a PMH of chronic left-sided back pain, chronic neck pain, type 2 diabetes, seizure disorder, CKD 4, hypertension, history of TIA, carotic stenosis s/p carotid endarterectomy, frequent falls and other medical problems listed below who presents with worsening left hip pain. CT lumbar spine with acute to subacute nondisplaced bilateral L3 pedicle fractures. Also with a subacute/healing inferior endplate compression fracture at L2 and multilevel degenerative changes as described above most pronounced at the L4-5 level which demonstrates severe central canal narrowing. Last fall was in March 2022. No weakness, bowel or bladder incontinence noted in past few days Case discussed with Dr. Vazquez- ortho surgery consult, lumbar spine of MRI ordered MRI L-spine IMPRESSION: 1. Nondisplaced subacute bilateral L3 pedicle fractures are again noted. 2. No additional acute fractures identified within the lumbar spine. 3. Multiple old compression deformities again noted throughout the lumbar spine. 4. Multilevel lumbar spondylosis as described above most pronounced at the L3-L4 and L4-5 levels which demonstrates severe central canal narrowing. Per ortho-spine Closed fracture of pedicle of lumbar vertebra: Assessment L3 pedicle fractures.Both the CAT scan and MRI demonstrate most likely a subacute L3 pedicle fractures. This is most likely due to the autofusion from L4 to the sacrum creating adjacent level stresses. She does exhibit severe multilevel spinal stenosis but does not exhibit gross neurogenic claudicatory symptoms. At this time in light of her health history I am very hesitant to recommend any surgical intervention. We will provide her with an LSO brace to wear when out of bed. We can continue to follow this with serial CAT scans over the course of the next several months. - PRN tylenol, Tramadol for moderate-severe pain. Many medication allergies reviewed -PT/OT 05/21 R foot pain Now patient states that her back is not bothering her, however complains of right foot pain, will obtain x-ray No edema or erythema of ankle noted, very minimal tenderness to palpation of plantar surface R foot XR FINDINGS: Mild diffuse soft tissue swelling/edema. Small posterior calcaneal spur. Mild vascular calcifications are noted. The bones are osteopenic. Suboptimal positioning of the right foot. There appear to be old, healed fractures at the third through fifth metatarsals. No definite acute fracture or dislocation within the right foot. The Lisfranc joint appears intact. IMPRESSION: 1. Old, healed third through fifth metatarsal fractures. 2. No definite acute fracture or dislocation within the right foot. 3. Diffuse osteopenia and degenerative changes. 05/22 -patient denies back pain, reports posterior lower extremity tenderness to palpation bilaterally -obtained Dopplers to r/o DVT - negative (3) UTI (urinary tract infection), uncomplicated: Plan: UA abnormal, 4+ bacteria present. Started empiric Rocephin. Urine culture positive for Klebsiella pneumonia - continue Rocephin while inpt (4) Seizure disorder: Plan: No seizure since 2003. Follows with Dr. Castellanos. Continue Zonegran and Lamictal (5) CKD (chronic kidney disease), stage III: Plan: History of CKD III-IV with baseline creatinine ~1.8-2. At baseline with creatinine 1.9 to now. Avoid nephrotoxic agents when able. Monitor with daily BMP (6) Hyperglycemia: (7) DM type 2 (diabetes mellitus, type 2): Plan: BSG 356 on arrival. Uncontrolled diabetes with A1c from 05/14/22 elevated at 11.8 Given 10 units of regular insulin in ER Current A1c 10.6% Hold oral home meds Glycemic pharmacy consulted for inpatient management, diabetic education and likely need for insulin at discharge, per family, patient was hesitant about insulin in the past BSG AC HS (8) Carotid stenosis: Plan: Status post remote left endarterectomy, history of TIA in 2003 Has stopped taking aspirin, statin and Plavix on her own Plan to resume aspirin, statin now. Last seen by vascular >10 years ago (9) Dyslipidemia: Plan: Unclear whether or not patient was on statin (10) Stasis dermatitis: Plan: Bilateral lower extremity erythema noted. No warmth or elevated white count to indicate cellulitis. Continue to monitor DVT Ppx: SCDs for now Code status: FULL PCP: Dr. Hood Dispo: Admitted to med/surg Admission and Anticipated Discharge Date Admission Date: May 19, 2022 Subjective Patient seen in follow-up of back pain, also found to have uncontrolled diabetes Seen by orthospine, no surgical intervention planned, back brace ordered Per family, patient hesitant to insulin in the past Patient is sitting up in chair, in no acute distress. Lower extremity edema noted on admission - resolved but pt complained of right ankle pain - XR obtained - unremarkable. Then also reported posterior leg pain bilaterally. Doppler negative. Denies any significant back pain. No fevers chills, chest pain shortness of breath, abdominal pain, nausea vomiting Review of Systems Review of Systems: All systems reviewed & are unremarkable except as noted in Subjective Physical Exam Physical Exam: NAD, well developed Card: normal S1/S2, no murmur Lungs: CTA, no wheezing Abd: ND, NT, soft MSK: b/l LE trace edema with mild b/l skin erythema (much improved), minimal tenderness to palpation of right foot, + mild tenderness to palp post. LE b/l Psych: AAOx3, normal affect Results & Data Results & Data ([facility]) Laboratory Results 05/23/22 05/23/22 05/23/22 Range/Units 17:14 13:12 13:12 WBC 9.61 (4.8-10.8) K/ul RBC 3.73 L (3.93-5.22) M/uL Hgb 11.5 L (12.0-16.0) g/dl Hct 35.8 (34.1-44.9) % MCV 96.0 (80.0-100.0) fL MCH 30.8 (25.0-34.0) pg MCHC 32.1 (32.0-36.0) g/dL RDW Std Deviation 49.2 H (36.4-46.3) fL RDW Coeff of Tony 13.8 (11.5-14.5) % Plt Count 213 (130-400) K/uL MPV 9.0 L (9.4-12.3) fL Sodium 132 L (136-145) mmol/L Potassium 4.5 (3.5-5.1) mmol/L Chloride 101 (98-107) mmol/L Carbon Dioxide 22 (21-32) mmol/L Anion Gap 9 (3-11) BUN 27 H (6-23) mg/dl Creatinine 2.05 H (0.6-1.2) mg/dl Est Cr Clr Drug Dosing 21.3 ml/min Est GFR ( Amer) 26.6 ml/min Est GFR (Non-Af Amer) 23.0 ml/min BUN/Creatinine Ratio 13.2 (10-20) Glucose 104 H (70-99(Fasting)) mg/dl POC Glucose 183 H (70-99) mg/dl Calcium 8.6 (8.5-10.1) mg/dl Phosphorus 3.7 (2.5-4.9) mg/dl Magnesium 1.6 L (1.7-2.4) mg/dl 05/23/22 05/23/22 05/23/22 Range/Units 12:03 08:04 08:03 WBC (4.8-10.8) K/ul RBC (3.93-5.22) M/uL Hgb (12.0-16.0) g/dl Hct (34.1-44.9) % MCV (80.0-100.0) fL MCH (25.0-34.0) pg MCHC (32.0-36.0) g/dL RDW Std Deviation (36.4-46.3) fL RDW Coeff of Tony (11.5-14.5) % Plt Count (130-400) K/uL MPV (9.4-12.3) fL Sodium (136-145) mmol/L Potassium (3.5-5.1) mmol/L Chloride (98-107) mmol/L Carbon Dioxide (21-32) mmol/L Anion Gap (3-11) BUN (6-23) mg/dl Creatinine (0.6-1.2) mg/dl Est Cr Clr Drug Dosing ml/min Est GFR ( Amer) ml/min Est GFR (Non-Af Amer) ml/min BUN/Creatinine Ratio (10-20) Glucose (70-99(Fasting)) mg/dl POC Glucose 110 H 73 63 L* (70-99) mg/dl Calcium (8.5-10.1) mg/dl Phosphorus (2.5-4.9) mg/dl Magnesium (1.7-2.4) mg/dl 05/22/22 Range/Units 20:48 WBC (4.8-10.8) K/ul RBC (3.93-5.22) M/uL Hgb (12.0-16.0) g/dl Hct (34.1-44.9) % MCV (80.0-100.0) fL MCH (25.0-34.0) pg MCHC (32.0-36.0) g/dL RDW Std Deviation (36.4-46.3) fL RDW Coeff of Tony (11.5-14.5) % Plt Count (130-400) K/uL MPV (9.4-12.3) fL Sodium (136-145) mmol/L Potassium (3.5-5.1) mmol/L Chloride (98-107) mmol/L Carbon Dioxide (21-32) mmol/L Anion Gap (3-11) BUN (6-23) mg/dl Creatinine (0.6-1.2) mg/dl Est Cr Clr Drug Dosing ml/min Est GFR ( Amer) ml/min Est GFR (Non-Af Amer) ml/min BUN/Creatinine Ratio (10-20) Glucose (70-99(Fasting)) mg/dl POC Glucose 137 H (70-99) mg/dl Calcium (8.5-10.1) mg/dl Phosphorus (2.5-4.9) mg/dl Magnesium (1.7-2.4) mg/dl Medications Administered Current Inpatient Medications Acetaminophen (Acetaminophen 325 Mg Tab) 650 mg PO Q4H PRN PRN Reason: Pain Stop: 06/20/22 09:14 Last Admin: 05/22/22 09:32 Dose: 650 mg Ascorbic Acid (Ascorbic Acid 500 Mg Tab) 1,000 mg PO QAM [facility] Stop: 06/19/22 08:59 Last Admin: 05/23/22 08:29 Dose: 1,000 mg Aspirin (Aspirin 81 Mg Ectab) 81 mg PO QAM [facility] Stop: 06/21/22 08:59 Last Admin: 05/23/22 08:29 Dose: 81 mg Cyanocobalamin (Cyanocobalamin (B-12) 500 Mcg Tablet) 500 mcg PO QAM [facility] Stop: 06/19/22 08:59 Last Admin: 05/23/22 08:30 Dose: 500 mcg Dextrose (Dextrose 50% 50 Ml Syringe) 25 - 50 ml IV UD PRN; Protocol PRN Reason: Hypoglycemia Protocol Stop: 06/18/22 17:36 Glipizide (Glipizide Er 2.5 Mg Tabcr) 10 mg PO DAILY [facility] Stop: 06/21/22 16:29 Last Admin: 05/23/22 08:30 Dose: 10 mg Glucagon (Glucagon For Inj 1 Mg Vial) 1 mg SQ UD PRN; Protocol PRN Reason: Hypoglycemia Protocol Stop: 06/18/22 17:36 Glucose (Glucose 40% Gel 15 Gm Tube) 15 - 30 gm PO UD PRN; Protocol PRN Reason: Hypoglycemia Protocol Stop: 06/18/22 17:36 Glucose (Glucose 10 Tab/Tube) 4 - 8 tab PO UD PRN; Protocol PRN Reason: Hypoglycemia Treatment Stop: 06/18/22 17:36 Ceftriaxone Sodium 1,000 mg/ (Dextrose) 60 mls @ 100 mls/hr IV DAILY@1800 [facility]; Protocol Stop: 05/24/22 17:59 Last Infusion: 05/22/22 18:37 Dose: Infused Insulin Aspart (Insulin Aspart Per Unit) 0 units SC ACHS [facility] Stop: 06/19/22 00:00 Last Admin: 05/23/22 12:13 Dose: Not Given Insulin Glargine (Lantus Per Unit Charge) 15 units SQ DAILY [facility]; Protocol Stop: 06/22/22 08:59 Lamotrigine (Lamotrigine 100 Mg Tab) 100 mg PO BID [facility] Stop: 06/18/22 20:59 Last Admin: 05/23/22 08:30 Dose: 100 mg Metformin HCl (Metformin Hcl 500 Mg Tab) 500 mg PO QAM [facility] Stop: 06/22/22 08:59 Last Admin: 05/23/22 08:31 Dose: 500 mg Miscellaneous (Carbohydrates For Hypoglycemia ) 15 - 30 gm PO UD PRN PRN Reason: Hypoglycemia Protocol Stop: 06/18/22 17:36 Miscellaneous Information (Pharmacy Glycemic Mgmt Consult) 1 each N/A UD PRN PRN Reason: Consult Stop: 06/18/22 15:48 Tramadol HCl (Tramadol Hcl 50 Mg Tablet) 50 mg PO BID PRN PRN Reason: Pain Stop: 06/18/22 16:41 Last Admin: 05/22/22 03:16 Dose: 50 mg Zonisamide (Zonisamide 100 Mg Capsule) 200 mg PO BID [facility] Stop: 06/19/22 08:59 Last Admin: 05/23/22 08:30 Dose: 200 mg (1) CKD (chronic kidney disease), stage III Chronic kidney disease stage 3 subtype: unspecified whether 3a or 3b Qualified Code(s): N18.30 - Chronic kidney disease, stage 3 unspecified
[2022-05-23 13:32] LABS: Hematocrit (blood only) 35.8 % (34.1-44.9); Hemoglobin 11.5 g/dl (12.0-16.0); Mean Corpuscular Hemoglobin 30.8 pg (25.0-34.0); Mean Corpuscular Hgb Conc 32.1 g/dL (32.0-36.0); Platelet Count 213 K/uL (130-400); RDW Coefficient of Variation 13.8 % (11.5-14.5); RDW Standard Deviation 49.2 fL (36.4-46.3); Red Blood Count 3.73 M/uL (3.93-5.22); White Blood Count 9.61 K/ul (4.8-10.8)
[2022-05-23 13:57] LABS: BUN Creatinine Ratio 13.2 (10-20); Calcium 8.6 mg/dl (8.5-10.1); Creatinine Clr Calc Pharmacy 21.3 ml/min; Est GFR (African American) 26.6 ml/min; Magnesium 1.6 mg/dl (1.7-2.4); Phosphorus 3.7 mg/dl (2.5-4.9); Potassium 4.5 mmol/L (3.5-5.1)
[2022-05-23] MEDS ORDERED: MAGNESIUM SULFATE / D5W 1 GM/100 ML BAG IV ONE (15:00)
[2022-05-23] MEDS: cefUROXime axetil 250 MG TABLET PO SCH (20:46)
[2022-05-24] MEDS: ASCORBIC ACID 500 MG TAB PO SCH (09:21)
[2022-05-24] MEDS: CYANOCOBALAMIN (B-12) 500 MCG TABLET PO SCH (09:21)
[2022-05-24] MEDS: lamoTRIgine 100 MG TAB PO SCH ×2 (09:21→20:42)
[2022-05-24] MEDS: ZONISAMIDE 100 MG CAPSULE PO SCH ×2 (09:21→20:43)
[2022-05-24] MEDS: ASPIRIN 81 MG ECTAB PO SCH (09:21)
[2022-05-24] MEDS: INSULIN ASPART PER UNIT SC SCH ×4 (09:24→20:43)
[2022-05-24 10:01] LABS: Calcium 8.8 mg/dl (8.5-10.1); Creatinine Clr Calc Pharmacy 20.3 ml/min; Est GFR (African American) 25.1 ml/min; Est GFR (Non-African American) 21.7 ml/min; Magnesium 1.9 mg/dl (1.7-2.4); Phosphorus 3.7 mg/dl (2.5-4.9); Potassium 4.1 mmol/L (3.5-5.1)
[2022-05-24] MEDS: traMADol HCL 50 MG TABLET PO PRN (11:11)
--- NOTE | 2022-05-24 12:59 | Hospitalist Progress Note ---
Date of Service May 24, 2022 Assessment & Plan (1) L3 vertebral fracture: (2) Spinal stenosis, lumbar: Plan: This is a 77yo F with a PMH of chronic left-sided back pain, chronic neck pain, type 2 diabetes, seizure disorder, CKD 4, hypertension, history of TIA, carotic stenosis s/p carotid endarterectomy, frequent falls and other medical problems listed below who presents with worsening left hip pain. CT lumbar spine with acute to subacute nondisplaced bilateral L3 pedicle fractures. Also with a subacute/healing inferior endplate compression fracture at L2 and multilevel degenerative changes as described above most pronounced at the L4-5 level which demonstrates severe central canal narrowing. Last fall was in March 2022. No weakness, bowel or bladder incontinence noted in past few days Case discussed with Dr. Vazquez- ortho surgery consult, lumbar spine of MRI ordered MRI L-spine IMPRESSION: 1. Nondisplaced subacute bilateral L3 pedicle fractures are again noted. 2. No additional acute fractures identified within the lumbar spine. 3. Multiple old compression deformities again noted throughout the lumbar spine. 4. Multilevel lumbar spondylosis as described above most pronounced at the L3-L4 and L4-5 levels which demonstrates severe central canal narrowing. Per ortho-spine Closed fracture of pedicle of lumbar vertebra: Assessment L3 pedicle fractures.Both the CAT scan and MRI demonstrate most likely a subacute L3 pedicle fractures. This is most likely due to the autofusion from L4 to the sacrum creating adjacent level stresses. She does exhibit severe multilevel spinal stenosis but does not exhibit gross neurogenic claudicatory symptoms. At this time in light of her health history I am very hesitant to recommend any surgical intervention. We will provide her with an LSO brace to wear when out of bed. We can continue to follow this with serial CAT scans over the course of the next several months. - PRN tylenol, Tramadol for moderate-severe pain. Many medication allergies reviewed -PT/OT 05/21 R foot pain Now patient states that her back is not bothering her, however complains of right foot pain, will obtain x-ray No edema or erythema of ankle noted, very minimal tenderness to palpation of plantar surface R foot XR FINDINGS: Mild diffuse soft tissue swelling/edema. Small posterior calcaneal spur. Mild vascular calcifications are noted. The bones are osteopenic. Suboptimal positioning of the right foot. There appear to be old, healed fractures at the third through fifth metatarsals. No definite acute fracture or dislocation within the right foot. The Lisfranc joint appears intact. IMPRESSION: 1. Old, healed third through fifth metatarsal fractures. 2. No definite acute fracture or dislocation within the right foot. 3. Diffuse osteopenia and degenerative changes. 05/22 -patient denies back pain, reports posterior lower extremity tenderness to palpation bilaterally -obtained Dopplers to r/o DVT - negative 05/24 -patient denies any significant lower extremity pain or ankle pain, also denies any significant back pain (3) UTI (urinary tract infection), uncomplicated: Plan: UA abnormal, 4+ bacteria present. Started empiric Rocephin. Urine culture positive for Klebsiella pneumonia - continued Rocephin while inpt, switched to cefuroxime to finish Abx course (4) Seizure disorder: Plan: No seizure since 2003. Follows with Dr. Castellanos. Continue Zonegran and Lamictal (5) CKD (chronic kidney disease), stage III: Plan: History of CKD III-IV with baseline creatinine ~1.8-2. At baseline with creatinine 1.9 to now. Avoid nephrotoxic agents when able. Monitor with daily BMP (6) Hyperglycemia: (7) DM type 2 (diabetes mellitus, type 2): Plan: BSG 356 on arrival. Uncontrolled diabetes with A1c from 05/14/22 elevated at 11.8 Given 10 units of regular insulin in ER Current A1c 10.6% Hold oral home meds Glycemic pharmacy consulted for inpatient management, diabetic education and likely need for insulin at discharge, per family, patient was hesitant about insulin in the past BSG AC HS (8) Carotid stenosis: Plan: Status post remote left endarterectomy, history of TIA in 2003 Has stopped taking aspirin, statin and Plavix on her own Plan to resume aspirin, statin now. Last seen by vascular >10 years ago (9) Dyslipidemia: Plan: Unclear whether or not patient was on statin (10) Stasis dermatitis: Plan: Bilateral lower extremity erythema noted on admission. No warmth or elevated white count to indicate cellulitis. Continue to monitor DVT Ppx: SCDs for now Code status: FULL PCP: Dr. Hood Dispo: Admitted to med/surg Admission and Anticipated Discharge Date Admission Date: May 19, 2022 Subjective Patient seen in follow-up of back pain, also found to have uncontrolled diabetes Seen by orthospine, no surgical intervention planned, back brace ordered Per family, patient hesitant to insulin in the past Patient is sitting up in chair, in no acute distress. Lower extremity edema noted on admission - resolved but pt complained of right ankle pain - XR obtained - unremarkable. Then also reported posterior leg pain bilaterally. Doppler negative. Now denies any significant leg pain ankle pain. Denies any significant back pain. No fevers chills, chest pain shortness of breath, abdominal pain, nausea vomiting Review of Systems Review of Systems: All systems reviewed & are unremarkable except as noted in Subjective Physical Exam Physical Exam: NAD, well developed Card: normal S1/S2, no murmur Lungs: CTA, no wheezing Abd: ND, NT, soft MSK: b/l LE trace edema with mild b/l skin erythema (much improved), minimal tenderness to palpation of right foot, + minimal tenderness to palp post. LE b/l Psych: AAOx3, normal affect Results & Data Results & Data ([facility]) Vital Signs (Past 12 Hours) Vital Signs Temp Pulse Resp BP Pulse Ox 05/24/22 07:43 36.7 C 76 16 125/63 96 Laboratory Results 05/24/22 05/24/22 05/24/22 Range/Units 12:01 09:02 07:56 WBC (4.8-10.8) K/ul RBC (3.93-5.22) M/uL Hgb (12.0-16.0) g/dl Hct (34.1-44.9) % MCV (80.0-100.0) fL MCH (25.0-34.0) pg MCHC (32.0-36.0) g/dL RDW Std Deviation (36.4-46.3) fL RDW Coeff of Tony (11.5-14.5) % Plt Count (130-400) K/uL MPV (9.4-12.3) fL Sodium 136 (136-145) mmol/L Potassium 4.1 (3.5-5.1) mmol/L Chloride 103 (98-107) mmol/L Carbon Dioxide 22 (21-32) mmol/L Anion Gap 11 (3-11) BUN 28 H (6-23) mg/dl Creatinine 2.15 H (0.6-1.2) mg/dl Est Cr Clr Drug Dosing 20.3 ml/min Est GFR ( Amer) 25.1 ml/min Est GFR (Non-Af Amer) 21.7 ml/min BUN/Creatinine Ratio 13.0 (10-20) Glucose 102 H (70-99(Fasting)) mg/dl POC Glucose 189 H 78 (70-99) mg/dl Calcium 8.8 (8.5-10.1) mg/dl Phosphorus 3.7 (2.5-4.9) mg/dl Magnesium 1.9 (1.7-2.4) mg/dl 05/23/22 05/23/22 05/23/22 Range/Units 20:30 17:14 13:12 WBC (4.8-10.8) K/ul RBC (3.93-5.22) M/uL Hgb (12.0-16.0) g/dl Hct (34.1-44.9) % MCV (80.0-100.0) fL MCH (25.0-34.0) pg MCHC (32.0-36.0) g/dL RDW Std Deviation (36.4-46.3) fL RDW Coeff of Tony (11.5-14.5) % Plt Count (130-400) K/uL MPV (9.4-12.3) fL Sodium 132 L (136-145) mmol/L Potassium 4.5 (3.5-5.1) mmol/L Chloride 101 (98-107) mmol/L Carbon Dioxide 22 (21-32) mmol/L Anion Gap 9 (3-11) BUN 27 H (6-23) mg/dl Creatinine 2.05 H (0.6-1.2) mg/dl Est Cr Clr Drug Dosing 21.3 ml/min Est GFR ( Amer) 26.6 ml/min Est GFR (Non-Af Amer) 23.0 ml/min BUN/Creatinine Ratio 13.2 (10-20) Glucose 104 H (70-99(Fasting)) mg/dl POC Glucose 179 H 183 H (70-99) mg/dl Calcium 8.6 (8.5-10.1) mg/dl Phosphorus 3.7 (2.5-4.9) mg/dl Magnesium 1.6 L (1.7-2.4) mg/dl 05/23/22 Range/Units 13:12 WBC 9.61 (4.8-10.8) K/ul RBC 3.73 L (3.93-5.22) M/uL Hgb 11.5 L (12.0-16.0) g/dl Hct 35.8 (34.1-44.9) % MCV 96.0 (80.0-100.0) fL MCH 30.8 (25.0-34.0) pg MCHC 32.1 (32.0-36.0) g/dL RDW Std Deviation 49.2 H (36.4-46.3) fL RDW Coeff of Tony 13.8 (11.5-14.5) % Plt Count 213 (130-400) K/uL MPV 9.0 L (9.4-12.3) fL Sodium (136-145) mmol/L Potassium (3.5-5.1) mmol/L Chloride (98-107) mmol/L Carbon Dioxide (21-32) mmol/L Anion Gap (3-11) BUN (6-23) mg/dl Creatinine (0.6-1.2) mg/dl Est Cr Clr Drug Dosing ml/min Est GFR ( Amer) ml/min Est GFR (Non-Af Amer) ml/min BUN/Creatinine Ratio (10-20) Glucose (70-99(Fasting)) mg/dl POC Glucose (70-99) mg/dl Calcium (8.5-10.1) mg/dl Phosphorus (2.5-4.9) mg/dl Magnesium (1.7-2.4) mg/dl Medications Administered Current Inpatient Medications Acetaminophen (Acetaminophen 325 Mg Tab) 650 mg PO Q4H PRN PRN Reason: Pain Stop: 06/20/22 09:14 Last Admin: 05/22/22 09:32 Dose: 650 mg Ascorbic Acid (Ascorbic Acid 500 Mg Tab) 1,000 mg PO [facility] Stop: 06/19/22 08:59 Last Admin: 05/24/22 09:21 Dose: 1,000 mg Aspirin (Aspirin 81 Mg Ectab) [facility] Stop: 06/21/22 08:59 Last Admin: 05/24/22 09:21 Dose: 81 mg Cefuroxime Axetil (Cefuroxime Axetil 250 Mg Tablet) 250 mg PO Q24H [facility]; Protocol Stop: 06/02/22 20:59 Last Admin: 05/23/22 20:46 Dose: Not Given Cyanocobalamin (Cyanocobalamin (B-12) 500 Mcg Tablet) 500 mcg PO QAM [facility] Stop: 06/19/22 08:59 Last Admin: 05/24/22 09:21 Dose: 500 mcg Dextrose (Dextrose 50% 50 Ml Syringe) 25 - 50 ml IV UD PRN; Protocol PRN Reason: Hypoglycemia Protocol Stop: 06/18/22 17:36 Glipizide (Glipizide Er 2.5 Mg Tabcr) 10 mg PO DAILY [facility] Stop: 06/21/22 16:29 Last Admin: 05/23/22 08:30 Dose: 10 mg Glucagon (Glucagon For Inj 1 Mg Vial) 1 mg SQ UD PRN; Protocol PRN Reason: Hypoglycemia Protocol Stop: 06/18/22 17:36 Glucose (Glucose 40% Gel 15 Gm Tube) 15 - 30 gm PO UD PRN; Protocol PRN Reason: Hypoglycemia Protocol Stop: 06/18/22 17:36 Glucose (Glucose 10 Tab/Tube) 4 - 8 tab PO UD PRN; Protocol PRN Reason: Hypoglycemia Treatment Stop: 06/18/22 17:36 Insulin Aspart (Insulin Aspart Per Unit) [address] [facility] Stop: 06/19/22 00:00 Last Admin: 05/24/22 12:40 Dose: Not Given Lamotrigine (Lamotrigine 100 Mg Tab) 100 mg PO BID [facility] Stop: 06/18/22 20:59 Last Admin: 05/24/22 09:21 Dose: 100 mg Metformin HCl (Metformin Hcl 500 Mg Tab) [facility] Stop: 06/22/22 08:59 Last Admin: 05/23/22 08:31 Dose: 500 mg Miscellaneous (Carbohydrates For Hypoglycemia ) 15 - 30 gm PO UD PRN PRN Reason: Hypoglycemia Protocol Stop: 06/18/22 17:36 Miscellaneous Information (Pharmacy Glycemic Mgmt Consult) 1 each N/A UD PRN PRN Reason: Consult Stop: 06/18/22 15:48 Tramadol HCl (Tramadol Hcl 50 Mg Tablet) 50 mg PO BID PRN PRN Reason: Pain Stop: 06/18/22 16:41 Last Admin: 05/24/22 11:11 Dose: 50 mg Zonisamide (Zonisamide 100 Mg Capsule) 200 mg PO BID [facility] Stop: 06/19/22 08:59 Last Admin: 05/24/22 09:21 Dose: 200 mg (1) CKD (chronic kidney disease), stage III Chronic kidney disease stage 3 subtype: unspecified whether 3a or 3b Qualified Code(s): N18.30 - Chronic kidney disease, stage 3 unspecified
[2022-05-24] MEDS: ACETAMINOPHEN 325 MG TAB PO PRN (14:46)
[2022-05-24] MEDS: cefUROXime axetil 250 MG TABLET PO SCH (15:26)
[2022-05-25] MEDS: traMADol HCL 50 MG TABLET PO PRN (00:03)
[2022-05-25] MEDS: ACETAMINOPHEN 325 MG TAB PO PRN (05:40)
--- NOTE | 2022-05-25 08:29 | Hospitalist Progress Note ---
Date of Service May 25, 2022 Assessment & Plan (1) L3 vertebral fracture: (2) Spinal stenosis, lumbar: Plan: This is a 77yo F with a PMH of chronic left-sided back pain, chronic neck pain, type 2 diabetes, seizure disorder, CKD 4, hypertension, history of TIA, carotic stenosis s/p carotid endarterectomy, frequent falls and other medical problems listed below who presents with worsening left hip pain. CT lumbar spine with acute to subacute nondisplaced bilateral L3 pedicle fractures. Also with a subacute/healing inferior endplate compression fracture at L2 and multilevel degenerative changes as described above most pronounced at the L4-5 level which demonstrates severe central canal narrowing. Last fall was in March 2022. No weakness, bowel or bladder incontinence noted in past few days Case discussed with Dr. Vazquez- ortho surgery consult, lumbar spine of MRI ordered MRI L-spine IMPRESSION: 1. Nondisplaced subacute bilateral L3 pedicle fractures are again noted. 2. No additional acute fractures identified within the lumbar spine. 3. Multiple old compression deformities again noted throughout the lumbar spine. 4. Multilevel lumbar spondylosis as described above most pronounced at the L3-L4 and L4-5 levels which demonstrates severe central canal narrowing. Per ortho-spine Closed fracture of pedicle of lumbar vertebra: Assessment L3 pedicle fractures.Both the CAT scan and MRI demonstrate most likely a subacute L3 pedicle fractures. This is most likely due to the autofusion from L4 to the sacrum creating adjacent level stresses. She does exhibit severe multilevel spinal stenosis but does not exhibit gross neurogenic claudicatory symptoms. At this time in light of her health history I am very hesitant to recommend any surgical intervention. We will provide her with an LSO brace to wear when out of bed. We can continue to follow this with serial CAT scans over the course of the next several months. - PRN tylenol, Tramadol for moderate-severe pain. Many medication allergies reviewed -PT/OT 05/21 R foot pain Now patient states that her back is not bothering her, however complains of right foot pain, will obtain x-ray No edema or erythema of ankle noted, very minimal tenderness to palpation of plantar surface R foot XR FINDINGS: Mild diffuse soft tissue swelling/edema. Small posterior calcaneal spur. Mild vascular calcifications are noted. The bones are osteopenic. Suboptimal positioning of the right foot. There appear to be old, healed fractures at the third through fifth metatarsals. No definite acute fracture or dislocation within the right foot. The Lisfranc joint appears intact. IMPRESSION: 1. Old, healed third through fifth metatarsal fractures. 2. No definite acute fracture or dislocation within the right foot. 3. Diffuse osteopenia and degenerative changes. 05/22 -patient denies back pain, reports posterior lower extremity tenderness to palpation bilaterally -obtained Dopplers to r/o DVT - negative 05/24 -patient denies any significant lower extremity pain or ankle pain, also denies any significant back pain (3) UTI (urinary tract infection), uncomplicated: Plan: UA abnormal, 4+ bacteria present. Started empiric Rocephin. Urine culture positive for Klebsiella pneumonia - continued Rocephin while inpt, switched to cefuroxime to finish Abx course (4) Seizure disorder: Plan: No seizure since 2003. Follows with Dr. Castellanos. Continue Zonegran and Lamictal (5) CKD (chronic kidney disease), stage III: Plan: History of CKD III-IV with baseline creatinine ~1.8-2. At baseline now, Avoid nephrotoxic agents when able. Monitor BMP (6) Hyperglycemia: (7) DM type 2 (diabetes mellitus, type 2): Plan: BSG 356 on arrival. Uncontrolled diabetes with A1c from 05/14/22 elevated at 11.8 Given 10 units of regular insulin in ER Current A1c 10.6% Hold oral home meds Glycemic pharmacy consulted for inpatient management, diabetic education and likely need for insulin at discharge, per family, patient was hesitant about insulin in the past BSG AC HS (8) Carotid stenosis: Plan: Status post remote left endarterectomy, history of TIA in 2003 Has stopped taking aspirin, statin and Plavix on her own Plan to resume aspirin, statin now. Last seen by vascular >10 years ago (9) Dyslipidemia: Plan: Unclear whether or not patient was on statin (10) Stasis dermatitis: Plan: Bilateral lower extremity erythema noted on admission. No warmth or elevated white count to indicate cellulitis. Continue to monitor DVT Ppx: SCDs for now Code status: FULL PCP: Dr. Hood Dispo: Admitted to med/surg Admission and Anticipated Discharge Date Admission Date: May 19, 2022 Subjective Patient seen in follow-up of back pain, also found to have uncontrolled diabetes Seen by orthospine, no surgical intervention planned, back brace ordered Per family, patient hesitant to insulin in the past Patient is sitting up in chair, in no acute distress. Lower extremity edema noted on admission - resolved but pt complained of right ankle pain - XR obtained - unremarkable. Then also reported posterior leg pain bilaterally. Doppler negative. Now denies any significant leg pain or ankle pain. Denies any significant back pain. No fevers chills, chest pain shortness of breath, abdominal pain, nausea vomiting +constipation Pt reports difficulty w/ ambulation Review of Systems Review of Systems: All systems reviewed & are unremarkable except as noted in Subjective Physical Exam Physical Exam: NAD, well developed Card: normal S1/S2, no murmur Lungs: CTA, no wheezing Abd: ND, NT, soft MSK: b/l LE trace edema with mild b/l skin erythema (much improved), minimal tenderness to palpation of right foot, + minimal tenderness to palp post. LE b/l Psych: AAOx3, normal affect Results & Data Results & Data ([facility]) Vital Signs (Past 12 Hours) Vital Signs Temp Pulse Resp BP Pulse Ox O2 Del Method 05/25/22 07:34 Room Air 05/25/22 07:11 36.6 C 66 18 139/67 94 Room Air 05/24/22 23:32 36.7 C 71 16 126/63 93 Room Air Laboratory Results 05/25/22 05/24/22 05/24/22 Range/Units 08:07 22:20 20:34 Sodium (136-145) mmol/L Potassium (3.5-5.1) mmol/L Chloride (98-107) mmol/L Carbon Dioxide (21-32) mmol/L Anion Gap (3-11) BUN (6-23) mg/dl Creatinine (0.6-1.2) mg/dl Est Cr Clr Drug Dosing ml/min Est GFR ( Amer) ml/min Est GFR (Non-Af Amer) ml/min BUN/Creatinine Ratio (10-20) Glucose (70-99(Fasting)) mg/dl POC Glucose 161 H 202 H 228 H (70-99) mg/dl Calcium (8.5-10.1) mg/dl Phosphorus (2.5-4.9) mg/dl Magnesium (1.7-2.4) mg/dl 07/24/22 07/24/22 07/24/22 Range/Units 17:12 12:01 09:02 Sodium 136 (136-145) mmol/L Potassium 4.1 (3.5-5.1) mmol/L Chloride 103 (98-107) mmol/L Carbon Dioxide 22 (21-32) mmol/L Anion Gap 11 (3-11) BUN 28 H (6-23) mg/dl Creatinine 2.15 H (0.6-1.2) mg/dl Est Cr Clr Drug Dosing 20.3 ml/min Est GFR ( Amer) 25.1 ml/min Est GFR (Non-Af Amer) 21.7 ml/min BUN/Creatinine Ratio 13.0 (10-20) Glucose 102 H (70-99(Fasting)) mg/dl POC Glucose 182 H 189 H (70-99) mg/dl Calcium 8.8 (8.5-10.1) mg/dl Phosphorus 3.7 (2.5-4.9) mg/dl Magnesium 1.9 (1.7-2.4) mg/dl Medications Administered Current Inpatient Medications Acetaminophen (Acetaminophen 325 Mg Tab) 650 mg PO Q4H PRN PRN Reason: Pain Stop: 06/20/22 09:14 Last Admin: 05/25/22 05:40 Dose: 650 mg Ascorbic Acid (Ascorbic Acid 500 Mg Tab) 1,000 mg PO [facility] Stop: 06/19/22 08:59 Last Admin: 05/24/22 09:21 Dose: 1,000 mg Aspirin (Aspirin 81 Mg Ectab) 81 mg PO [facility] Stop: 06/21/22 08:59 Last Admin: 05/24/22 09:21 Dose: 81 mg Cefuroxime Axetil (Cefuroxime Axetil 250 Mg Tablet) 250 mg PO Q24H [facility]; Protocol Stop: 06/02/22 20:59 Last Admin: 05/24/22 15:26 Dose: 250 mg Cyanocobalamin (Cyanocobalamin (B-12) 500 Mcg Tablet) 500 mcg PO [facility] Stop: 06/19/22 08:59 Last Admin: 05/24/22 09:21 Dose: 500 mcg Dextrose (Dextrose 50% 50 Ml Syringe) 25 - 50 ml IV UD PRN; Protocol PRN Reason: Hypoglycemia Protocol Stop: 06/18/22 17:36 Glipizide (Glipizide Er 2.5 Mg Tabcr) 10 mg PO DAILY [facility] Stop: 06/21/22 16:29 Last Admin: 05/23/22 08:30 Dose: 10 mg Glucagon (Glucagon For Inj 1 Mg Vial) 1 mg SQ UD PRN; Protocol PRN Reason: Hypoglycemia Protocol Stop: 06/18/22 17:36 Glucose (Glucose 40% Gel 15 Gm Tube) 15 - 30 gm PO UD PRN; Protocol PRN Reason: Hypoglycemia Protocol Stop: 06/18/22 17:36 Glucose (Glucose 10 Tab/Tube) 4 - 8 tab PO UD PRN; Protocol PRN Reason: Hypoglycemia Treatment Stop: 06/18/22 17:36 Insulin Aspart (Insulin Aspart Per Unit) 0 units SC [facility] Stop: 06/19/22 00:00 Last Admin: 05/24/22 20:43 Dose: Not Given Lamotrigine (Lamotrigine 100 Mg Tab) 100 mg PO BID [facility] Stop: 06/18/22 20:59 Last Admin: 05/24/22 20:42 Dose: 100 mg Metformin HCl (Metformin Hcl 500 Mg Tab) 500 mg PO QAM [facility] Stop: 06/22/22 08:59 Last Admin: 05/23/22 08:31 Dose: 500 mg Miscellaneous (Carbohydrates For Hypoglycemia ) 15 - 30 gm PO UD PRN PRN Reason: Hypoglycemia Protocol Stop: 06/18/22 17:36 Miscellaneous Information (Pharmacy Glycemic Mgmt Consult) 1 each N/A UD PRN PRN Reason: Consult Stop: 06/18/22 15:48 Tramadol HCl (Tramadol Hcl 50 Mg Tablet) 50 mg PO BID PRN PRN Reason: Pain Stop: 06/18/22 16:41 Last Admin: 05/25/22 00:03 Dose: 50 mg Zonisamide (Zonisamide 100 Mg Capsule) 200 mg PO BID [facility] Stop: 06/19/22 08:59 Last Admin: 05/24/22 20:43 Dose: 200 mg (1) CKD (chronic kidney disease), stage III Chronic kidney disease stage 3 subtype: unspecified whether 3a or 3b Qualified Code(s): N18.30 - Chronic kidney disease, stage 3 unspecified
[2022-05-25] MEDS: lamoTRIgine 100 MG TAB PO SCH ×2 (09:02→20:22)
[2022-05-25] MEDS: CYANOCOBALAMIN (B-12) 500 MCG TABLET PO SCH (09:02)
[2022-05-25] MEDS: ZONISAMIDE 100 MG CAPSULE PO SCH ×2 (09:02→20:21)
[2022-05-25] MEDS: ASPIRIN 81 MG ECTAB PO SCH (09:02)
[2022-05-25] MEDS: ASCORBIC ACID 500 MG TAB PO SCH (09:02)
[2022-05-25] MEDS: INSULIN ASPART PER UNIT SC SCH ×4 (09:03→20:22)
[2022-05-25] MEDS: glipiZIDE 5 MG TAB PO SCH (13:18)
--- NOTE | 2022-05-25 13:20 | Pharmacy Report ---
Pharmacy Glycemic Short Note 2 - Date of Service May 25, 2022 - Glycemic Short BSG Results (Last 24 hours): 05/24/22 05/24/22 05/24/22 17:12 20:34 22:20 POC Glucose 182 H 228 H 202 H 05/25/22 05/25/22 08:07 11:54 POC Glucose 161 H 164 H OUTPATIENT ANTIDIABETIC REGIMEN: * Glipizide XL 10 mg qAM, metformin 500 mg qAM * A1c 10.6% 05/20/22 ASSESSMENT: 05/25/22 * Patient's BSGs yesterday were [phone] mg/dL. Patient continues to refuse all insulin despite counseling. * Upon discussion with special education paraeducator and physician, will resume low dose glipizide. * Metformin not recommended due to kidney function and patient has allergy to Januvia. 05/22/22 * Patient's BSGs yesterday were [phone] mg/dL. Patient received 31 units of insulin (20 units of basal and 11 units of bolus). * Patient's BSGs today are 98-169 mg/dL. Patient refused all Novolog today but did take 5 units of basal. * Will change to patient's home regimen of glipizide XL 10 mg daily plus Metformin 500 mg daily. * Will change Lantus to once daily to ease number of injections for patient. 05/21/22: * Radha received 29 units of SQ insulin yesterday (Lantus 20 units + Novolog 9 units) * Fasting BSG is at goal. Will continue current Lantus order of 5-10 units dosed per scale. * Post prandial BSGs fluctuated yesterday. Will tighten carb coverage, slightly loosen correction factor 05/20/22: * Patient admitted with vertebral fracture, BSG elevated on admission, trended down with initiation of of novolog/lantus last PM * A1c 10.6%, holding home oral medications at this time; may be candidate to start insulin on outpatient, special education paraeducator consulted * Patient ordered diet this AM, will monitor for need to tighten carb ratio. PLAN FOR INPATIENT GLYCEMIC CONTROL: * glipizide 2.5 mg PO daily * Basal insulin * refuses * Bolus insulin * NovoLog per scale ACHS or Q6hrs while NPO * Goal Range: Low 120 mg/dL - High 150 mg/dL * Correction Factor: 25 mg/dL/unit * Nutritional / Prandial insulin per carb ratio of 1 unit per -- grams CHO consumed
[2022-05-25] MEDS: cefUROXime axetil 250 MG TABLET PO SCH (14:52)
[2022-05-25] MEDS: DOCUSATE SODIUM 100 MG CAP PO SCH (23:09)
[2022-05-26] MEDS: ACETAMINOPHEN 325 MG TAB PO PRN ×2 (00:25→07:50)
[2022-05-26] MEDS: traMADol HCL 50 MG TABLET PO PRN ×2 (02:51→22:06)
[2022-05-26] MEDS: INSULIN ASPART PER UNIT SC SCH ×4 (08:07→21:24)
[2022-05-26] MEDS: POLYETHYLENE (MIRALAX) 17 GM PACK PO SCH ×2 (08:38→11:06)
[2022-05-26] MEDS: DOCUSATE SODIUM 100 MG CAP PO SCH ×3 (08:38→20:43)
[2022-05-26] MEDS: ZONISAMIDE 100 MG CAPSULE PO SCH ×2 (08:38→20:43)
[2022-05-26] MEDS: ASCORBIC ACID 500 MG TAB PO SCH (08:39)
[2022-05-26] MEDS: lamoTRIgine 100 MG TAB PO SCH ×2 (08:39→20:43)
[2022-05-26] MEDS: glipiZIDE 5 MG TAB PO SCH (08:39)
[2022-05-26] MEDS: CYANOCOBALAMIN (B-12) 500 MCG TABLET PO SCH (08:39)
[2022-05-26] MEDS: ASPIRIN 81 MG ECTAB PO SCH (08:39)
--- NOTE | 2022-05-26 13:41 | Pharmacy Report ---
Pharmacy Glycemic Sign Off Nt - Date of Service May 26, 2022 - Assessment & Plan ASSESSMENT: * Pharmacy was consulted by Jacqueline Bergeron PA-C on 05/19/22 for glycemic control and to write orders per [facility] inpatient glycemic control protocol. * Major changes made by pharmacy to antidiabetic regimen include: * resumption of home glipizide due to resistance to insulin * Patient has been receiving/requiring 0 units of insulin per day for glycemic control as patient refusing insulin plus blood sugar checks * Regimen has only required minor adjustments over the past 48hrs to achieve this level of control * Do not anticipate further changes in patient status that would quickly dete riorate glycemic control (i.e. patient to be NPO for upcoming procedure, steroids tapering, starting tube feedings, etc). * Please see recommendations for outpatient antidiabetic regimen below. PLAN FOR INPATIENT GLYCEMIC CONTROL: No changes needed to current regimen. * Continue glipizide ER 2.5 mg PO daily * Pharmacy is signing off of glycemic consult and will no longer be making adjustments to inpatient regimen. Please feel free to re-consult if needed. Thank you.
[2022-05-27] MEDS: DOCUSATE SODIUM 100 MG CAP PO SCH ×2 (08:28→20:26)
[2022-05-27] MEDS: INSULIN ASPART PER UNIT SC SCH ×4 (08:28→21:00)
[2022-05-27] MEDS: lamoTRIgine 100 MG TAB PO SCH ×2 (08:28→20:25)
[2022-05-27] MEDS: ZONISAMIDE 100 MG CAPSULE PO SCH ×2 (08:28→20:24)
[2022-05-27] MEDS: POLYETHYLENE (MIRALAX) 17 GM PACK PO SCH (08:28)
[2022-05-27] MEDS: glipiZIDE 5 MG TAB PO SCH (08:28)
[2022-05-27] MEDS: ASPIRIN 81 MG ECTAB PO SCH (08:29)
[2022-05-27] MEDS: ASCORBIC ACID 500 MG TAB PO SCH (08:29)
[2022-05-27] MEDS: CYANOCOBALAMIN (B-12) 500 MCG TABLET PO SCH (08:29)
--- NOTE | 2022-05-27 15:44 | Hospitalist Progress Note ---
Date of Service May 26, 2022 Assessment & Plan (1) L3 vertebral fracture: (2) Spinal stenosis, lumbar: Plan: This is a 77yo F with a PMH of chronic left-sided back pain, chronic neck pain, type 2 diabetes, seizure disorder, CKD 4, hypertension, history of TIA, carotic stenosis s/p carotid endarterectomy, frequent falls and other medical problems listed below who presents with worsening left hip pain. CT lumbar spine with acute to subacute nondisplaced bilateral L3 pedicle fractures. Also with a subacute/healing inferior endplate compression fracture at L2 and multilevel degenerative changes as described above most pronounced at the L4-5 level which demonstrates severe central canal narrowing. Last fall was in March 2022. No weakness, bowel or bladder incontinence noted in past few days Case discussed with Dr. Vazquez- ortho surgery consult, lumbar spine of MRI ordered MRI L-spine IMPRESSION: 1. Nondisplaced subacute bilateral L3 pedicle fractures are again noted. 2. No additional acute fractures identified within the lumbar spine. 3. Multiple old compression deformities again noted throughout the lumbar spine. 4. Multilevel lumbar spondylosis as described above most pronounced at the L3-L4 and L4-5 levels which demonstrates severe central canal narrowing. Per ortho-spine Closed fracture of pedicle of lumbar vertebra: Assessment L3 pedicle fractures.Both the CAT scan and MRI demonstrate most likely a subacute L3 pedicle fractures. This is most likely due to the autofusion from L4 to the sacrum creating adjacent level stresses. She does exhibit severe multilevel spinal stenosis but does not exhibit gross neurogenic claudicatory symptoms. At this time in light of her health history I am very hesitant to recommend any surgical intervention. We will provide her with an LSO brace to wear when out of bed. We can continue to follow this with serial CAT scans over the course of the next several months. - PRN tylenol, Tramadol for moderate-severe pain. Many medication allergies reviewed -PT/OT 05/21 R foot pain Now patient states that her back is not bothering her, however complains of right foot pain, will obtain x-ray No edema or erythema of ankle noted, very minimal tenderness to palpation of plantar surface R foot XR FINDINGS: Mild diffuse soft tissue swelling/edema. Small posterior calcaneal spur. Mild vascular calcifications are noted. The bones are osteopenic. Suboptimal positioning of the right foot. There appear to be old, healed fractures at the third through fifth metatarsals. No definite acute fracture or dislocation within the right foot. The Lisfranc joint appears intact. IMPRESSION: 1. Old, healed third through fifth metatarsal fractures. 2. No definite acute fracture or dislocation within the right foot. 3. Diffuse osteopenia and degenerative changes. 05/22 -patient denies back pain, reports posterior lower extremity tenderness to palpation bilaterally -obtained Dopplers to r/o DVT - negative 05/24 -patient denies any significant lower extremity pain or ankle pain, also denies any significant back pain (3) UTI (urinary tract infection), uncomplicated: Plan: UA abnormal, 4+ bacteria present. Started empiric Rocephin. Urine culture positive for Klebsiella pneumonia - continued Rocephin while inpt, switched to cefuroxime to finish Abx course (4) Seizure disorder: Plan: No seizure since 2003. Follows with Dr. Castellanos. Continue Zonegran and Lamictal (5) CKD (chronic kidney disease), stage III: Plan: History of CKD III-IV with baseline creatinine ~1.8-2. At baseline now, Avoid nephrotoxic agents when able. Monitor BMP (6) Hyperglycemia: (7) DM type 2 (diabetes mellitus, type 2): Plan: BSG 356 on arrival. Uncontrolled diabetes with A1c from 05/14/22 elevated at 11.8 Given 10 units of regular insulin in ER Current A1c 10.6% Hold oral home meds Glycemic pharmacy consulted for inpatient management, diabetic education and likely need for insulin at discharge, per family, patient was hesitant about insulin in the past BSG AC HS (8) Carotid stenosis: Plan: Status post remote left endarterectomy, history of TIA in 2003 Has stopped taking aspirin, statin and Plavix on her own Plan to resume aspirin, statin now. Last seen by vascular >10 years ago (9) Dyslipidemia: Plan: Unclear whether or not patient was on statin (10) Stasis dermatitis: Plan: Bilateral lower extremity erythema noted on admission. No warmth or elevated white count to indicate cellulitis. Continue to monitor DVT Ppx: SCDs for now Code status: FULL PCP: Dr. Hood Dispo: Admitted to med/surg Admission and Anticipated Discharge Date Admission Date: May 19, 2022 Subjective Patient seen in follow-up of back pain, also found to have uncontrolled diabetes Seen by orthospine, no surgical intervention planned, back brace ordered Per family, patient hesitant to insulin in the past Patient is sitting up in chair, in no acute distress. Lower extremity edema noted on admission - resolved but pt complained of right ankle pain - XR obtained - unremarkable. Then also reported posterior leg pain bilaterally. Doppler negative. Now denies any significant leg pain or ankle pain. Denies any significant back pain. No fevers chills, chest pain shortness of breath, abdominal pain, nausea vomiting +constipation Pt reports difficulty w/ ambulation Review of Systems Review of Systems: All systems reviewed & are unremarkable except as noted in Subjective Physical Exam Physical Exam: NAD, well developed Card: normal S1/S2, no murmur Lungs: CTA, no wheezing Abd: ND, NT, soft MSK: b/l LE trace edema with mild b/l skin erythema (much improved), minimal tenderness to palpation of right foot, + minimal tenderness to palp post. LE b/l Psych: AAOx3, normal affect Results & Data Results & Data ([facility]) Vital Signs (Past 12 Hours) Vital Signs Temp Pulse Resp BP Pulse Ox O2 Del Method 05/27/22 14:41 36.7 C 72 16 126/57 L 98 Room Air 05/27/22 06:59 36.8 C 60 16 126/63 95 Room Air (1) CKD (chronic kidney disease), stage III Chronic kidney disease stage 3 subtype: unspecified whether 3a or 3b Qualified Code(s): N18.30 - Chronic kidney disease, stage 3 unspecified
--- NOTE | 2022-05-27 23:55 | Hospitalist Progress Note ---
Date of Service May 27, 2022 Assessment & Plan (1) L3 vertebral fracture: (2) Spinal stenosis, lumbar: Plan: This is a 77yo F with a PMH of chronic left-sided back pain, chronic neck pain, type 2 diabetes, seizure disorder, CKD 4, hypertension, history of TIA, carotic stenosis s/p carotid endarterectomy, frequent falls and other medical problems listed below who presents with worsening left hip pain. CT lumbar spine with acute to subacute nondisplaced bilateral L3 pedicle fractures. Also with a subacute/healing inferior endplate compression fracture at L2 and multilevel degenerative changes as described above most pronounced at the L4-5 level which demonstrates severe central canal narrowing. Last fall was in March 2022. No weakness, bowel or bladder incontinence noted in past few days Case discussed with Dr. Vazquez- ortho surgery consult, lumbar spine of MRI ordered MRI L-spine IMPRESSION: 1. Nondisplaced subacute bilateral L3 pedicle fractures are again noted. 2. No additional acute fractures identified within the lumbar spine. 3. Multiple old compression deformities again noted throughout the lumbar spine. 4. Multilevel lumbar spondylosis as described above most pronounced at the L3-L4 and L4-5 levels which demonstrates severe central canal narrowing. Per ortho-spine Closed fracture of pedicle of lumbar vertebra: Assessment L3 pedicle fractures.Both the CAT scan and MRI demonstrate most likely a subacute L3 pedicle fractures. This is most likely due to the autofusion from L4 to the sacrum creating adjacent level stresses. She does exhibit severe multilevel spinal stenosis but does not exhibit gross neurogenic claudicatory symptoms. At this time in light of her health history I am very hesitant to recommend any surgical intervention. We will provide her with an LSO brace to wear when out of bed. We can continue to follow this with serial CAT scans over the course of the next several months. 05/21 R foot pain Now patient states that her back is not bothering her, however complains of right foot pain, will obtain x-ray No edema or erythema of ankle noted, very minimal tenderness to palpation of plantar surface R foot XR FINDINGS: Mild diffuse soft tissue swelling/edema. Small posterior calcaneal spur. Mild vascular calcifications are noted. The bones are osteopenic. Suboptimal positioning of the right foot. There appear to be old, healed fractures at the third through fifth metatarsals. No definite acute fracture or dislocation within the right foot. The Lisfranc joint appears intact. IMPRESSION: 1. Old, healed third through fifth metatarsal fractures. 2. No definite acute fracture or dislocation within the right foot. 3. Diffuse osteopenia and degenerative changes. Continue PT/OT eval Fall precaution Consider inpatient rehab but pt would like to go home (3) UTI (urinary tract infection), uncomplicated: Plan: UA abnormal, 4+ bacteria present. Started empiric Rocephin. Urine culture positive for Klebsiella pneumonia - continued Rocephin while inpt, switched to cefuroxime to finish Abx course Completed course of the antibiotic (4) Seizure disorder: Plan: No seizure since 2003. Follows with Dr. Castellanos. Continue Zonegran and Lamictal (5) CKD (chronic kidney disease), stage III: Plan: History of CKD III-IV with baseline creatinine ~1.8-2. At baseline now, Avoid nephrotoxic agents when able. Continue monitor BMP (6) Hyperglycemia: (7) DM type 2 (diabetes mellitus, type 2): Plan: BSG 356 on arrival. Uncontrolled diabetes with A1c from 05/14/22 elevated at 11.8 Given 10 units of regular insulin in ER Current A1c 10.6% Hold oral home meds Glycemic pharmacy consulted for inpatient management, diabetic education and likely need for insulin at discharge, per family, patient was hesitant about insulin in the past BSG AC HS Pt refused to take any insulin while inpatient She said that she will not take any insulin if discharge on any insulin (8) Carotid stenosis: Plan: Status post remote left endarterectomy, history of TIA in 2003 Has stopped taking aspirin, statin and Plavix on her own Plan to resume aspirin, statin now. Last seen by vascular >10 years ago (9) Dyslipidemia: Plan: Unclear whether or not patient was on statin (10) Stasis dermatitis: Plan: Bilateral lower extremity erythema noted on admission. No warmth or elevated white count to indicate cellulitis. Continue to monitor DVT Ppx: SCDs for now Will add heparin subq Code status: FULL Admission and Anticipated Discharge Date Admission Date: May 19, 2022 Subjective Patient seen and examined for follow-up of back pain, constipation and ambulatory discomfort Lying in bed with no acute distress Pt said that the reason she has not been working out with therapy is because she does not feel comfortable to stand with only 1 staff because she is afraid that she is going to fall She said the floor in the hospital is slippery She said that she has not had a BM for about 1 week. She said that she usually does not go when she is not home She wants to go home and she believes that she will get better Denies any chest pain, palpitation, dizziness, fever, chill, shortness of breath, abdominal pain, nausea vomiting Review of Systems Review of Systems: All systems reviewed & are unremarkable except as noted in Subjective Physical Exam Physical Exam: General- No acute distress Head- atraumatic Eyes- PERRL, EOMI, ENT- oropharynx clear Neck- supple, no JVD Lungs- clear to auscultation Heart- regular rhythm; no murmur Abdomen- normal bowel sounds, soft, nontender Extremities- no calf tenderness, +trace edema Neuro- alert, oriented x 3; PERRL, EOMI; no facial palsy; no dysarthria Skin- warm & dry Results & Data Results & Data ([facility]) Vital Signs (Past 12 Hours) Vital Signs Temp Pulse Resp BP Pulse Ox O2 Del Method 05/27/22 22:41 36.8 C 66 16 129/63 98 Room Air 05/27/22 14:41 36.7 C 72 16 126/57 L 98 Room Air (1) CKD (chronic kidney disease), stage III Chronic kidney disease stage 3 subtype: unspecified whether 3a or 3b Qualified Code(s): N18.30 - Chronic kidney disease, stage 3 unspecified
[2022-05-28] MEDS: ASCORBIC ACID 500 MG TAB PO SCH (10:03)
[2022-05-28] MEDS: CYANOCOBALAMIN (B-12) 500 MCG TABLET PO SCH (10:04)
[2022-05-28] MEDS: ASPIRIN 81 MG ECTAB PO SCH (10:04)
[2022-05-28] MEDS: DOCUSATE SODIUM 100 MG CAP PO SCH ×2 (10:05→21:54)
[2022-05-28] MEDS: glipiZIDE 5 MG TAB PO SCH (10:05)
[2022-05-28] MEDS: lamoTRIgine 100 MG TAB PO SCH ×3 (10:06→22:28)
[2022-05-28] MEDS: ZONISAMIDE 100 MG CAPSULE PO SCH ×3 (10:15→22:28)
[2022-05-28] MEDS: POLYETHYLENE (MIRALAX) 17 GM PACK PO SCH (10:21)
[2022-05-28] MEDS: INSULIN ASPART PER UNIT SC SCH ×4 (11:08→21:54)
--- NOTE | 2022-05-28 22:20 | Hospitalist Progress Note ---
Date of Service May 28, 2022 Assessment & Plan (1) L3 vertebral fracture: (2) Spinal stenosis, lumbar: Plan: This is a 77yo F with a PMH of chronic left-sided back pain, chronic neck pain, type 2 diabetes, seizure disorder, CKD 4, hypertension, history of TIA, carotic stenosis s/p carotid endarterectomy, frequent falls and other medical problems listed below who presents with worsening left hip pain. CT lumbar spine with acute to subacute nondisplaced bilateral L3 pedicle fractures. Also with a subacute/healing inferior endplate compression fracture at L2 and multilevel degenerative changes as described above most pronounced at the L4-5 level which demonstrates severe central canal narrowing. Last fall was in March 2022. No weakness, bowel or bladder incontinence noted in past few days Case discussed with Dr. Vazquez- ortho surgery consult, lumbar spine of MRI ordered MRI L-spine IMPRESSION: 1. Nondisplaced subacute bilateral L3 pedicle fractures are again noted. 2. No additional acute fractures identified within the lumbar spine. 3. Multiple old compression deformities again noted throughout the lumbar spine. 4. Multilevel lumbar spondylosis as described above most pronounced at the L3-L4 and L4-5 levels which demonstrates severe central canal narrowing. Per ortho-spine Closed fracture of pedicle of lumbar vertebra: Assessment L3 pedicle fractures.Both the CAT scan and MRI demonstrate most likely a subacute L3 pedicle fractures. This is most likely due to the autofusion from L4 to the sacrum creating adjacent level stresses. She does exhibit severe multilevel spinal stenosis but does not exhibit gross neurogenic claudicatory symptoms. At this time in light of her health history I am very hesitant to recommend any surgical intervention. We will provide her with an LSO brace to wear when out of bed. We can continue to follow this with serial CAT scans over the course of the next several months. 05/21 R foot pain Now patient states that her back is not bothering her, however complains of right foot pain, will obtain x-ray No edema or erythema of ankle noted, very minimal tenderness to palpation of plantar surface R foot XR FINDINGS: Mild diffuse soft tissue swelling/edema. Small posterior calcaneal spur. Mild vascular calcifications are noted. The bones are osteopenic. Suboptimal positioning of the right foot. There appear to be old, healed fractures at the third through fifth metatarsals. No definite acute fracture or dislocation within the right foot. The Lisfranc joint appears intact. IMPRESSION: 1. Old, healed third through fifth metatarsal fractures. 2. No definite acute fracture or dislocation within the right foot. 3. Diffuse osteopenia and degenerative changes. Continue PT/OT eval Fall precaution Consider inpatient rehab but pt would like to go home She agreed to go to rehab (3) UTI (urinary tract infection), uncomplicated: Plan: UA abnormal, 4+ bacteria present. Started empiric Rocephin. Urine culture positive for Klebsiella pneumonia - continued Rocephin while inpt, switched to cefuroxime to finish Abx course Completed course of the antibiotic (4) Seizure disorder: Plan: No seizure since 2003. Follows with Dr. Castellanos. Continue Zonegran and Lamictal (5) CKD (chronic kidney disease), stage III: Plan: History of CKD III-IV with baseline creatinine ~1.8-2. At baseline now, Avoid nephrotoxic agents when able. Continue monitor BMP (6) Hyperglycemia: (7) DM type 2 (diabetes mellitus, type 2): Plan: BSG 356 on arrival. Uncontrolled diabetes with A1c from 05/14/22 elevated at 11.8 Given 10 units of regular insulin in ER Current A1c 10.6% Hold oral home meds Glycemic pharmacy consulted for inpatient management, diabetic education and likely need for insulin at discharge, per family, patient was hesitant about insulin in the past BSG AC HS Pt refused to take any insulin while inpatient and refused accue check BS She said that she will not take any insulin if discharge on any insulin Will plan to increase glipizide to 5mg on discharge (8) Carotid stenosis: Plan: Status post remote left endarterectomy, history of TIA in 2003 Has stopped taking aspirin, statin and Plavix on her own Plan to resume aspirin, statin now. Last seen by vascular >10 years ago (9) Dyslipidemia: Plan: Unclear whether or not patient was on statin (10) Stasis dermatitis: Plan: Bilateral lower extremity erythema noted on admission. No warmth or elevated white count to indicate cellulitis. Continue to monitor DVT Ppx: SCDs for now Will add heparin subq Code status: FULL Disposition Waiting for placement Admission and Anticipated Discharge Date Admission Date: May 19, 2022 Subjective Patient seen and examined for follow-up of back pain, constipation and ambulatory discomfort Sitting in chair with no acute distress with daughter in law, son and brother at bedside Pt was able to participate in therapy Her pain is better control She agrees to go to SNF for therapy She continues to refused lab work and accue check Denies any chest pain, palpitation, dizziness, fever, chill, shortness of breath, abdominal pain, nausea vomiting Review of Systems Review of Systems: All systems reviewed & are unremarkable except as noted in Subjective Physical Exam Physical Exam: General- No acute distress Head- atraumatic Eyes- PERRL, EOMI, ENT- oropharynx clear Neck- supple, no JVD Lungs- clear to auscultation Heart- regular rhythm; no murmur Abdomen- normal bowel sounds, soft, nontender Extremities- no calf tenderness, +trace edema Neuro- alert, oriented x 3; PERRL, EOMI; no facial palsy; no dysarthria Skin- warm & dry Results & Data Results & Data ([facility]) Vital Signs (Past 12 Hours) Vital Signs Temp Pulse Resp BP Pulse Ox O2 Del Method 05/28/22 14:58 36.8 C 70 18 117/64 99 Room Air (1) CKD (chronic kidney disease), stage III Chronic kidney disease stage 3 subtype: unspecified whether 3a or 3b Qualified Code(s): N18.30 - Chronic kidney disease, stage 3 unspecified
[2022-05-29] MEDS: ACETAMINOPHEN 325 MG TAB PO PRN (04:37)
[2022-05-29] MEDS: lamoTRIgine 100 MG TAB PO SCH ×2 (09:22→20:53)
[2022-05-29] MEDS: ASCORBIC ACID 500 MG TAB PO SCH (09:23)
[2022-05-29] MEDS: ASPIRIN 81 MG ECTAB PO SCH (09:24)
[2022-05-29] MEDS: CYANOCOBALAMIN (B-12) 500 MCG TABLET PO SCH (09:24)
[2022-05-29] MEDS: DOCUSATE SODIUM 100 MG CAP PO SCH ×2 (09:25→21:11)
[2022-05-29] MEDS: glipiZIDE 5 MG TAB PO SCH (09:25)
[2022-05-29] MEDS: ZONISAMIDE 100 MG CAPSULE PO SCH ×2 (09:26→20:53)
[2022-05-29] MEDS: INSULIN ASPART PER UNIT SC SCH ×4 (09:30→22:13)
[2022-05-29] MEDS: POLYETHYLENE (MIRALAX) 17 GM PACK PO SCH (09:30)
[2022-05-29] MEDS: HEPARIN SOD 5,000 UNIT/0.5 ML VIAL SQ SCH ×2 (09:30→21:11)
--- NOTE | 2022-05-30 00:06 | Hospitalist Progress Note ---
Date of Service May 29, 2022 Assessment & Plan (1) L3 vertebral fracture: (2) Spinal stenosis, lumbar: Plan: This is a 77yo F with a PMH of chronic left-sided back pain, chronic neck pain, type 2 diabetes, seizure disorder, CKD 4, hypertension, history of TIA, carotic stenosis s/p carotid endarterectomy, frequent falls and other medical problems listed below who presents with worsening left hip pain. CT lumbar spine with acute to subacute nondisplaced bilateral L3 pedicle fractures. Also with a subacute/healing inferior endplate compression fracture at L2 and multilevel degenerative changes as described above most pronounced at the L4-5 level which demonstrates severe central canal narrowing. Last fall was in March 2022. No weakness, bowel or bladder incontinence noted in past few days Case discussed with Dr. Vazquez- ortho surgery consult, lumbar spine of MRI ordered MRI L-spine IMPRESSION: 1. Nondisplaced subacute bilateral L3 pedicle fractures are again noted. 2. No additional acute fractures identified within the lumbar spine. 3. Multiple old compression deformities again noted throughout the lumbar spine. 4. Multilevel lumbar spondylosis as described above most pronounced at the L3-L4 and L4-5 levels which demonstrates severe central canal narrowing. Per ortho-spine Closed fracture of pedicle of lumbar vertebra: Assessment L3 pedicle fractures.Both the CAT scan and MRI demonstrate most likely a subacute L3 pedicle fractures. This is most likely due to the autofusion from L4 to the sacrum creating adjacent level stresses. She does exhibit severe multilevel spinal stenosis but does not exhibit gross neurogenic claudicatory symptoms. At this time in light of her health history I am very hesitant to recommend any surgical intervention. We will provide her with an LSO brace to wear when out of bed. We can continue to follow this with serial CAT scans over the course of the next several months. 05/21 R foot pain Now patient states that her back is not bothering her, however complains of right foot pain, will obtain x-ray No edema or erythema of ankle noted, very minimal tenderness to palpation of plantar surface R foot XR FINDINGS: Mild diffuse soft tissue swelling/edema. Small posterior calcaneal spur. Mild vascular calcifications are noted. The bones are osteopenic. Suboptimal positioning of the right foot. There appear to be old, healed fractures at the third through fifth metatarsals. No definite acute fracture or dislocation within the right foot. The Lisfranc joint appears intact. IMPRESSION: 1. Old, healed third through fifth metatarsal fractures. 2. No definite acute fracture or dislocation within the right foot. 3. Diffuse osteopenia and degenerative changes. Continue PT/OT eval Fall precaution Consider inpatient rehab but pt would like to go home She agreed to go to rehab (3) UTI (urinary tract infection), uncomplicated: Plan: UA abnormal, 4+ bacteria present. Started empiric Rocephin. Urine culture positive for Klebsiella pneumonia - continued Rocephin while inpt, switched to cefuroxime to finish Abx course Completed course of the antibiotic (4) Seizure disorder: Plan: No seizure since 2003. Follows with Dr. Castellanos. Continue Zonegran and Lamictal (5) CKD (chronic kidney disease), stage III: Plan: History of CKD III-IV with baseline creatinine ~1.8-2. At baseline now, Avoid nephrotoxic agents when able. Continue monitor BMP (6) Hyperglycemia: (7) DM type 2 (diabetes mellitus, type 2): Plan: BSG 356 on arrival. Uncontrolled diabetes with A1c from 05/14/22 elevated at 11.8 Given 10 units of regular insulin in ER Current A1c 10.6% Hold oral home meds Glycemic pharmacy consulted for inpatient management, diabetic education and likely need for insulin at discharge, per family, patient was hesitant about insulin in the past BSG AC HS Pt refused to take any insulin while inpatient and refused accue check BS She said that she will not take any insulin if discharge on any insulin Continue glipizide 5mg daily (8) Carotid stenosis: Plan: Status post remote left endarterectomy, history of TIA in 2003 Has stopped taking aspirin, statin and Plavix on her own Plan to resume aspirin, statin now. Last seen by vascular >10 years ago (9) Dyslipidemia: Plan: Unclear whether or not patient was on statin (10) Stasis dermatitis: Plan: Bilateral lower extremity erythema noted on admission. No warmth or elevated white count to indicate cellulitis. Continue to monitor DVT Ppx heparin subq BID added Code status: FULL Disposition Waiting for placement Admission and Anticipated Discharge Date Admission Date: May 19, 2022 Subjective Patient seen and examined for follow-up of back pain, constipation and ambulatory discomfort Sitting in chair with no acute distress watching TV She is not happy with the treatment that she is getting from the staff Denies any chest pain, palpitation, dizziness, fever, chill, shortness of breath, abdominal pain, nausea vomiting Review of Systems Review of Systems: All systems reviewed & are unremarkable except as noted in Subjective Physical Exam Physical Exam: General- No acute distress Head- atraumatic Eyes- PERRL, EOMI, ENT- oropharynx clear Neck- supple, no JVD Lungs- clear to auscultation Heart- regular rhythm; no murmur Abdomen- normal bowel sounds, soft, nontender Extremities- no calf tenderness, +trace edema Neuro- alert, oriented x 3; PERRL, EOMI; no facial palsy; no dysarthria Skin- warm & dry Results & Data Results & Data ([facility]) Vital Signs (Past 12 Hours) Vital Signs Temp Pulse Pulse Resp BP BP Pulse Ox 05/29/22 23:48 36.6 C 67 18 152/53 H 97 05/29/22 16:00 36.5 C 75 18 119/62 97 O2 Del Method 05/29/22 23:48 Room Air 05/29/22 16:00 Room Air (1) CKD (chronic kidney disease), stage III Chronic kidney disease stage 3 subtype: unspecified whether 3a or 3b Qualified Code(s): N18.30 - Chronic kidney disease, stage 3 unspecified
[2022-05-30] MEDS: ZONISAMIDE 100 MG CAPSULE PO SCH ×2 (07:56→20:37)
[2022-05-30] MEDS: ASCORBIC ACID 500 MG TAB PO SCH (07:57)
[2022-05-30] MEDS: ASPIRIN 81 MG ECTAB PO SCH (07:57)
[2022-05-30] MEDS: INSULIN ASPART PER UNIT SC SCH ×2 (07:57→12:40)
[2022-05-30] MEDS: lamoTRIgine 100 MG TAB PO SCH ×2 (07:57→20:35)
[2022-05-30] MEDS: CYANOCOBALAMIN (B-12) 500 MCG TABLET PO SCH (07:57)
[2022-05-30] MEDS: DOCUSATE SODIUM 100 MG CAP PO SCH ×2 (07:59→20:43)
[2022-05-30] MEDS: HEPARIN SOD 5,000 UNIT/0.5 ML VIAL SQ SCH ×2 (07:59→20:43)
[2022-05-30] MEDS: POLYETHYLENE (MIRALAX) 17 GM PACK PO SCH (07:59)
[2022-05-30] MEDS: glipiZIDE 5 MG TAB PO SCH (08:44)
--- NOTE | 2022-05-30 21:58 | Hospitalist Progress Note ---
Date of Service May 30, 2022 Assessment & Plan (1) L3 vertebral fracture: (2) Spinal stenosis, lumbar: Plan: This is a 77yo F with a PMH of chronic left-sided back pain, chronic neck pain, type 2 diabetes, seizure disorder, CKD 4, hypertension, history of TIA, carotic stenosis s/p carotid endarterectomy, frequent falls and other medical problems listed below who presents with worsening left hip pain. CT lumbar spine with acute to subacute nondisplaced bilateral L3 pedicle fractures. Also with a subacute/healing inferior endplate compression fracture at L2 and multilevel degenerative changes as described above most pronounced at the L4-5 level which demonstrates severe central canal narrowing. Last fall was in March 2022. No weakness, bowel or bladder incontinence noted in past few days Case discussed with Dr. Vazquez- ortho surgery consult, lumbar spine of MRI ordered MRI L-spine IMPRESSION: 1. Nondisplaced subacute bilateral L3 pedicle fractures are again noted. 2. No additional acute fractures identified within the lumbar spine. 3. Multiple old compression deformities again noted throughout the lumbar spine. 4. Multilevel lumbar spondylosis as described above most pronounced at the L3-L4 and L4-5 levels which demonstrates severe central canal narrowing. Per ortho-spine Closed fracture of pedicle of lumbar vertebra: Assessment L3 pedicle fractures.Both the CAT scan and MRI demonstrate most likely a subacute L3 pedicle fractures. This is most likely due to the autofusion from L4 to the sacrum creating adjacent level stresses. She does exhibit severe multilevel spinal stenosis but does not exhibit gross neurogenic claudicatory symptoms. At this time in light of her health history I am very hesitant to recommend any surgical intervention. We will provide her with an LSO brace to wear when out of bed. We can continue to follow this with serial CAT scans over the course of the next several months. 05/21 R foot pain Now patient states that her back is not bothering her, however complains of right foot pain, will obtain x-ray No edema or erythema of ankle noted, very minimal tenderness to palpation of plantar surface R foot XR FINDINGS: Mild diffuse soft tissue swelling/edema. Small posterior calcaneal spur. Mild vascular calcifications are noted. The bones are osteopenic. Suboptimal positioning of the right foot. There appear to be old, healed fractures at the third through fifth metatarsals. No definite acute fracture or dislocation within the right foot. The Lisfranc joint appears intact. IMPRESSION: 1. Old, healed third through fifth metatarsal fractures. 2. No definite acute fracture or dislocation within the right foot. 3. Diffuse osteopenia and degenerative changes. Continue PT/OT eval Fall precaution Consider inpatient rehab but pt would like to go home She agreed to go to rehab (3) UTI (urinary tract infection), uncomplicated: Plan: UA abnormal, 4+ bacteria present. Started empiric Rocephin. Urine culture positive for Klebsiella pneumonia - continued Rocephin while inpt, switched to cefuroxime to finish Abx course Completed course of the antibiotic (4) Seizure disorder: Plan: No seizure since 2003. Follows with Dr. Castellanos. Continue Zonegran and Lamictal (5) CKD (chronic kidney disease), stage III: Plan: History of CKD III-IV with baseline creatinine ~1.8-2. At baseline now, Avoid nephrotoxic agents when able. Continue monitor BMP (6) Hyperglycemia: (7) DM type 2 (diabetes mellitus, type 2): Plan: BSG 356 on arrival. Uncontrolled diabetes with A1c from 05/14/22 elevated at 11.8 Given 10 units of regular insulin in ER Current A1c 10.6% Hold oral home meds Glycemic pharmacy consulted for inpatient management, diabetic education and likely need for insulin at discharge, per family, patient was hesitant about insulin in the past Since pt refused to take any insulin pharmacy signed off Pt refused to take any insulin while inpatient and refused accue check BS She said that she will not take any insulin if discharge on any insulin Continue glipizide 5mg daily (8) Carotid stenosis: Plan: Status post remote left endarterectomy, history of TIA in 2003 Has stopped taking aspirin, statin and Plavix on her own Plan to resume aspirin, statin now. Last seen by vascular >10 years ago (9) Dyslipidemia: Plan: Unclear whether or not patient was on statin (10) Stasis dermatitis: Plan: Bilateral lower extremity erythema noted on admission. No warmth or elevated white count to indicate cellulitis. Continue to monitor DVT Ppx heparin subq BID added Code status: FULL Disposition Waiting for placement Admission and Anticipated Discharge Date Admission Date: May 19, 2022 Subjective Patient seen and examined for follow-up of back pain, constipation and ambulatory discomfort Sitting in chair with no acute distress watching TV She continues to refuse BS check and insulin sliding scale Denies any chest pain, palpitation, dizziness, fever, chill, shortness of breath, abdominal pain, nausea vomiting Review of Systems Review of Systems: All systems reviewed & are unremarkable except as noted in Subjective Physical Exam Physical Exam: General- No acute distress Head- atraumatic Eyes- PERRL, EOMI, ENT- oropharynx clear Neck- supple, no JVD Lungs- clear to auscultation Heart- regular rhythm; no murmur Abdomen- normal bowel sounds, soft, nontender Extremities- no calf tenderness, +trace edema Neuro- alert, oriented x 3; PERRL, EOMI; no facial palsy; no dysarthria Skin- warm & dry Results & Data Results & [facility] ([facility]) Vital Signs (Past 12 Hours) Vital Signs Temp Pulse Resp BP Pulse Ox O2 Del Method 05/30/22 16:00 36.6 C 61 18 153/66 H 97 Room Air (1) CKD (chronic kidney disease), stage III Chronic kidney disease stage 3 subtype: unspecified whether 3a or 3b Qualified Code(s): N18.30 - Chronic kidney disease, stage 3 unspecified
[2022-05-30] MEDS: ACETAMINOPHEN 325 MG TAB PO PRN (23:28)
[2022-05-31] MEDS: CYANOCOBALAMIN (B-12) 500 MCG TABLET PO SCH (08:21)
[2022-05-31] MEDS: lamoTRIgine 100 MG TAB PO SCH ×2 (08:21→20:40)
[2022-05-31] MEDS: DOCUSATE SODIUM 100 MG CAP PO SCH ×2 (08:22→20:41)
[2022-05-31] MEDS: glipiZIDE 5 MG TAB PO SCH (08:22)
[2022-05-31] MEDS: POLYETHYLENE (MIRALAX) 17 GM PACK PO SCH (08:22)
[2022-05-31] MEDS: ASCORBIC ACID 500 MG TAB PO SCH (08:22)
[2022-05-31] MEDS: ASPIRIN 81 MG ECTAB PO SCH (08:22)
[2022-05-31] MEDS: HEPARIN SOD 5,000 UNIT/0.5 ML VIAL SQ SCH ×2 (08:22→20:41)
[2022-05-31] MEDS: ZONISAMIDE 100 MG CAPSULE PO SCH ×2 (08:23→20:41)
--- NOTE | 2022-05-31 21:53 | Hospitalist Progress Note ---
Date of Service May 31, 2022 Assessment & Plan (1) L3 vertebral fracture: (2) Spinal stenosis, lumbar: Plan: This is a 77yo F with a PMH of chronic left-sided back pain, chronic neck pain, type 2 diabetes, seizure disorder, CKD 4, hypertension, history of TIA, carotic stenosis s/p carotid endarterectomy, frequent falls and other medical problems listed below who presents with worsening left hip pain. CT lumbar spine with acute to subacute nondisplaced bilateral L3 pedicle fractures. Also with a subacute/healing inferior endplate compression fracture at L2 and multilevel degenerative changes as described above most pronounced at the L4-5 level which demonstrates severe central canal narrowing. Last fall was in March 2022. No weakness, bowel or bladder incontinence noted in past few days Case discussed with Dr. Vazquez- ortho surgery consult, lumbar spine of MRI ordered MRI L-spine IMPRESSION: 1. Nondisplaced subacute bilateral L3 pedicle fractures are again noted. 2. No additional acute fractures identified within the lumbar spine. 3. Multiple old compression deformities again noted throughout the lumbar spine. 4. Multilevel lumbar spondylosis as described above most pronounced at the L3-L4 and L4-5 levels which demonstrates severe central canal narrowing. Per ortho-spine Closed fracture of pedicle of lumbar vertebra: Assessment L3 pedicle fractures.Both the CAT scan and MRI demonstrate most likely a subacute L3 pedicle fractures. This is most likely due to the autofusion from L4 to the sacrum creating adjacent level stresses. She does exhibit severe multilevel spinal stenosis but does not exhibit gross neurogenic claudicatory symptoms. At this time in light of her health history I am very hesitant to recommend any surgical intervention. We will provide her with an LSO brace to wear when out of bed. We can continue to follow this with serial CAT scans over the course of the next several months. 05/21 R foot pain Now patient states that her back is not bothering her, however complains of right foot pain, will obtain x-ray No edema or erythema of ankle noted, very minimal tenderness to palpation of plantar surface R foot XR FINDINGS: Mild diffuse soft tissue swelling/edema. Small posterior calcaneal spur. Mild vascular calcifications are noted. The bones are osteopenic. Suboptimal positioning of the right foot. There appear to be old, healed fractures at the third through fifth metatarsals. No definite acute fracture or dislocation within the right foot. The Lisfranc joint appears intact. IMPRESSION: 1. Old, healed third through fifth metatarsal fractures. 2. No definite acute fracture or dislocation within the right foot. 3. Diffuse osteopenia and degenerative changes. Continue PT/OT eval Fall precaution Consider inpatient rehab but pt would like to go home She agreed to go to rehab (3) UTI (urinary tract infection), uncomplicated: Plan: UA abnormal, 4+ bacteria present. Started empiric Rocephin. Urine culture positive for Klebsiella pneumonia - continued Rocephin while inpt, switched to cefuroxime to finish Abx course Completed course of the antibiotic (4) Seizure disorder: Plan: No seizure since 2003. Follows with Dr. Castellanos. Continue Zonegran and Lamictal (5) CKD (chronic kidney disease), stage III: Plan: History of CKD III-IV with baseline creatinine ~1.8-2. At baseline now, Avoid nephrotoxic agents when able. Continue monitor BMP (6) Hyperglycemia: (7) DM type 2 (diabetes mellitus, type 2): Plan: BSG 356 on arrival. Uncontrolled diabetes with A1c from 05/14/22 elevated at 11.8 Given 10 units of regular insulin in ER Current A1c 10.6% Hold oral home meds Glycemic pharmacy consulted for inpatient management, diabetic education and likely need for insulin at discharge, per family, patient was hesitant about insulin in the past Since pt refused to take any insulin pharmacy signed off Pt refused to take any insulin while inpatient and refused accue check BS She said that she will not take any insulin if discharge on any insulin Continue glipizide 5mg daily (8) Carotid stenosis: Plan: Status post remote left endarterectomy, history of TIA in 2003 Has stopped taking aspirin, statin and Plavix on her own Plan to resume aspirin, statin now. Last seen by vascular >10 years ago (9) Dyslipidemia: Plan: Unclear whether or not patient was on statin (10) Stasis dermatitis: Plan: Bilateral lower extremity erythema noted on admission. No warmth or elevated white count to indicate cellulitis. Continue to monitor DVT Ppx heparin subq BID added Code status: FULL Disposition Waiting for placement Admission and Anticipated Discharge Date Admission Date: May 19, 2022 Subjective Patient seen and examined for follow-up of back pain, constipation and ambulatory discomfort Sitting in chair with no acute distress watching TV and eating her lunch Denies any chest pain, palpitation, dizziness, fever, chill, shortness of breath, abdominal pain, nausea vomiting Review of Systems Review of Systems: All systems reviewed & are unremarkable except as noted in Subjective Physical Exam Physical Exam: General- No acute distress Head- atraumatic Eyes- PERRL, EOMI, ENT- oropharynx clear Neck- supple, no JVD Lungs- clear to auscultation Heart- regular rhythm; no murmur Abdomen- normal bowel sounds, soft, nontender Extremities- no calf tenderness, +trace edema Neuro- alert, oriented x 3; PERRL, EOMI; no facial palsy; no dysarthria Skin- warm & dry Results & Data Results & Data ([facility]) Vital Signs (Past 12 Hours) Vital Signs Temp Pulse Resp BP Pulse Ox O2 Del Method 05/31/22 15:53 36.7 C 72 20 158/70 H 98 Room Air (1) CKD (chronic kidney disease), stage III Chronic kidney disease stage 3 subtype: unspecified whether 3a or 3b Qualified Code(s): N18.30 - Chronic kidney disease, stage 3 unspecified
[2022-06-01] MEDS: glipiZIDE 5 MG TAB PO SCH (07:35)
[2022-06-01] MEDS: ZONISAMIDE 100 MG CAPSULE PO SCH ×2 (07:35→20:15)
[2022-06-01] MEDS: lamoTRIgine 100 MG TAB PO SCH ×2 (07:35→20:16)
[2022-06-01] MEDS: ASPIRIN 81 MG ECTAB PO SCH (07:37)
[2022-06-01] MEDS: POLYETHYLENE (MIRALAX) 17 GM PACK PO SCH (07:37)
[2022-06-01] MEDS: ASCORBIC ACID 500 MG TAB PO SCH (07:37)
[2022-06-01] MEDS: CYANOCOBALAMIN (B-12) 500 MCG TABLET PO SCH (07:38)
[2022-06-01] MEDS: HEPARIN SOD 5,000 UNIT/0.5 ML VIAL SQ SCH ×2 (07:38→20:15)
[2022-06-01] MEDS: DOCUSATE SODIUM 100 MG CAP PO SCH ×2 (07:38→20:15)
--- NOTE | 2022-06-01 21:21 | Hospitalist Progress Note ---
Date of Service June 01, 2022 Assessment & Plan (1) L3 vertebral fracture: (2) Spinal stenosis, lumbar: Plan: This is a 77yo F with a PMH of chronic left-sided back pain, chronic neck pain, type 2 diabetes, seizure disorder, CKD 4, hypertension, history of TIA, carotic stenosis s/p carotid endarterectomy, frequent falls and other medical problems listed below who presents with worsening left hip pain. CT lumbar spine with acute to subacute nondisplaced bilateral L3 pedicle fractures. Also with a subacute/healing inferior endplate compression fracture at L2 and multilevel degenerative changes as described above most pronounced at the L4-5 level which demonstrates severe central canal narrowing. Last fall was in March 2022. No weakness, bowel or bladder incontinence noted in past few days Case discussed with Dr. Vazquez- ortho surgery consult, lumbar spine of MRI ordered MRI L-spine IMPRESSION: 1. Nondisplaced subacute bilateral L3 pedicle fractures are again noted. 2. No additional acute fractures identified within the lumbar spine. 3. Multiple old compression deformities again noted throughout the lumbar spine. 4. Multilevel lumbar spondylosis as described above most pronounced at the L3-L4 and L4-5 levels which demonstrates severe central canal narrowing. Per ortho-spine Closed fracture of pedicle of lumbar vertebra: Assessment L3 pedicle fractures.Both the CAT scan and MRI demonstrate most likely a subacute L3 pedicle fractures. This is most likely due to the autofusion from L4 to the sacrum creating adjacent level stresses. She does exhibit severe multilevel spinal stenosis but does not exhibit gross neurogenic claudicatory symptoms. At this time in light of her health history I am very hesitant to recommend any surgical intervention. We will provide her with an LSO brace to wear when out of bed. We can continue to follow this with serial CAT scans over the course of the next several months. 05/21 R foot pain Now patient states that her back is not bothering her, however complains of right foot pain, will obtain x-ray No edema or erythema of ankle noted, very minimal tenderness to palpation of plantar surface R foot XR FINDINGS: Mild diffuse soft tissue swelling/edema. Small posterior calcaneal spur. Mild vascular calcifications are noted. The bones are osteopenic. Suboptimal positioning of the right foot. There appear to be old, healed fractures at the third through fifth metatarsals. No definite acute fracture or dislocation within the right foot. The Lisfranc joint appears intact. IMPRESSION: 1. Old, healed third through fifth metatarsal fractures. 2. No definite acute fracture or dislocation within the right foot. 3. Diffuse osteopenia and degenerative changes. Continue PT/OT eval Fall precaution Waiting for placement (3) UTI (urinary tract infection), uncomplicated: Plan: UA abnormal, 4+ bacteria present. Started empiric Rocephin. Urine culture positive for Klebsiella pneumonia - continued Rocephin while inpt, switched to cefuroxime to finish Abx course Completed course of the antibiotic (4) Seizure disorder: Plan: No seizure since 2003. Follows with Dr. Castellanos. Continue Zonegran and Lamictal (5) CKD (chronic kidney disease), stage III: Plan: History of CKD III-IV with baseline creatinine ~1.8-2. At baseline now, Avoid nephrotoxic agents when able. Continue monitor BMP (6) Hyperglycemia: (7) DM type 2 (diabetes mellitus, type 2): Plan: BSG 356 on arrival. Uncontrolled diabetes with A1c from 05/14/22 elevated at 11.8 Given 10 units of regular insulin in ER Current A1c 10.6% Hold oral home meds Glycemic pharmacy consulted for inpatient management, diabetic education and likely need for insulin at discharge, per family, patient was hesitant about insulin in the past Since pt refused to take any insulin pharmacy signed off Pt refused to take any insulin while inpatient and refused accue check BS She said that she will not take any insulin if discharge on any insulin Continue glipizide 5mg daily (8) Carotid stenosis: Plan: Status post remote left endarterectomy, history of TIA in 2003 Has stopped taking aspirin, statin and Plavix on her own Continue aspirin, statin now. Last seen by vascular >10 years ago (9) Dyslipidemia: Plan: Unclear whether or not patient was on statin (10) Stasis dermatitis: Plan: Bilateral lower extremity erythema noted on admission. No warmth or elevated white count to indicate cellulitis. Continue to monitor DVT Ppx heparin subq BID Code status: FULL Disposition Waiting for placement Admission and Anticipated Discharge Date Admission Date: May 19, 2022 Subjective Patient seen and examined for follow-up of back pain, constipation and ambulatory discomfort Sitting in chair with no acute distress watching TV Pt said that yesterday she walked with her son in the hallway and she did 2 laps Denies any chest pain, palpitation, dizziness, fever, chill, shortness of breath, abdominal pain, nausea vomiting Review of Systems Review of Systems: All systems reviewed & are unremarkable except as noted in Subjective Physical Exam Physical Exam: General- No acute distress Head- atraumatic Eyes- PERRL, EOMI, ENT- oropharynx clear Neck- supple, no JVD Lungs- clear to auscultation Heart- regular rhythm; no murmur Abdomen- normal bowel sounds, soft, nontender Extremities- no calf tenderness, +trace edema Neuro- alert, oriented x 3; PERRL, EOMI; no facial palsy; no dysarthria Skin- warm & dry Results & Data Results & Data ([facility]) Vital Signs (Past 12 Hours) Vital Signs Temp Pulse Resp BP Pulse Ox O2 Del Method 06/01/22 14:37 36.5 C 71 17 112/66 93 Room Air (1) CKD (chronic kidney disease), stage III Chronic kidney disease stage 3 subtype: unspecified whether 3a or 3b Qualified Code(s): N18.30 - Chronic kidney disease, stage 3 unspecified
[2022-06-02] MEDS: lamoTRIgine 100 MG TAB PO SCH ×2 (08:53→19:50)
[2022-06-02] MEDS: glipiZIDE 5 MG TAB PO SCH (08:53)
[2022-06-02] MEDS: ZONISAMIDE 100 MG CAPSULE PO SCH ×2 (08:53→19:54)
[2022-06-02] MEDS: CYANOCOBALAMIN (B-12) 500 MCG TABLET PO SCH (08:56)
[2022-06-02] MEDS: ASCORBIC ACID 500 MG TAB PO SCH (08:56)
[2022-06-02] MEDS: ASPIRIN 81 MG ECTAB PO SCH (08:56)
[2022-06-02] MEDS: DOCUSATE SODIUM 100 MG CAP PO SCH ×2 (08:57→19:50)
[2022-06-02] MEDS: HEPARIN SOD 5,000 UNIT/0.5 ML VIAL SQ SCH ×2 (08:57→19:50)
[2022-06-02] MEDS: POLYETHYLENE (MIRALAX) 17 GM PACK PO SCH (08:57)
[2022-06-02] MEDS: ACETAMINOPHEN 325 MG TAB PO PRN (23:26)
--- NOTE | 2022-06-02 23:50 | Hospitalist Progress Note ---
Date of Service June 02, 2022 Assessment & Plan (1) L3 vertebral fracture: (2) Spinal stenosis, lumbar: Plan: This is a 77yo F with a PMH of chronic left-sided back pain, chronic neck pain, type 2 diabetes, seizure disorder, CKD 4, hypertension, history of TIA, carotic stenosis s/p carotid endarterectomy, frequent falls and other medical problems listed below who presents with worsening left hip pain. CT lumbar spine with acute to subacute nondisplaced bilateral L3 pedicle fractures. Also with a subacute/healing inferior endplate compression fracture at L2 and multilevel degenerative changes as described above most pronounced at the L4-5 level which demonstrates severe central canal narrowing. Last fall was in March 2022. No weakness, bowel or bladder incontinence noted in past few days Case discussed with Dr. Vazquez- ortho surgery consult, lumbar spine of MRI ordered MRI L-spine IMPRESSION: 1. Nondisplaced subacute bilateral L3 pedicle fractures are again noted. 2. No additional acute fractures identified within the lumbar spine. 3. Multiple old compression deformities again noted throughout the lumbar spine. 4. Multilevel lumbar spondylosis as described above most pronounced at the L3-L4 and L4-5 levels which demonstrates severe central canal narrowing. Per ortho-spine Closed fracture of pedicle of lumbar vertebra: Assessment L3 pedicle fractures.Both the CAT scan and MRI demonstrate most likely a subacute L3 pedicle fractures. This is most likely due to the autofusion from L4 to the sacrum creating adjacent level stresses. She does exhibit severe multilevel spinal stenosis but does not exhibit gross neurogenic claudicatory symptoms. At this time in light of her health history I am very hesitant to recommend any surgical intervention. We will provide her with an LSO brace to wear when out of bed. We can continue to follow this with serial CAT scans over the course of the next several months. 05/21 R foot pain Now patient states that her back is not bothering her, however complains of right foot pain, will obtain x-ray No edema or erythema of ankle noted, very minimal tenderness to palpation of plantar surface R foot XR FINDINGS: Mild diffuse soft tissue swelling/edema. Small posterior calcaneal spur. Mild vascular calcifications are noted. The bones are osteopenic. Suboptimal positioning of the right foot. There appear to be old, healed fractures at the third through fifth metatarsals. No definite acute fracture or dislocation within the right foot. The Lisfranc joint appears intact. IMPRESSION: 1. Old, healed third through fifth metatarsal fractures. 2. No definite acute fracture or dislocation within the right foot. 3. Diffuse osteopenia and degenerative changes. Continue PT/OT eval Fall precaution Waiting for placement (3) UTI (urinary tract infection), uncomplicated: Plan: UA abnormal, 4+ bacteria present. Started empiric Rocephin. Urine culture positive for Klebsiella pneumonia - continued Rocephin while inpt, switched to cefuroxime to finish Abx course Completed course of the antibiotic (4) Seizure disorder: Plan: No seizure since 2003. Follows with Dr. Castellanos. Continue Zonegran and Lamictal (5) CKD (chronic kidney disease), stage III: Plan: History of CKD III-IV with baseline creatinine ~1.8-2. At baseline now, Avoid nephrotoxic agents when able. Continue monitor BMP (6) Hyperglycemia: (7) DM type 2 (diabetes mellitus, type 2): Plan: BSG 356 on arrival. Uncontrolled diabetes with A1c from 05/14/22 elevated at 11.8 Given 10 units of regular insulin in ER Current A1c 10.6% Hold oral home meds Glycemic pharmacy consulted for inpatient management, diabetic education and likely need for insulin at discharge, per family, patient was hesitant about insulin in the past Since pt refused to take any insulin pharmacy signed off Pt refused to take any insulin while inpatient and refused accue check BS She said that she will not take any insulin if discharge on any insulin Continue glipizide 5mg daily (8) Carotid stenosis: Plan: Status post remote left endarterectomy, history of TIA in 2003 Has stopped taking aspirin, statin and Plavix on her own Continue aspirin, statin now. Last seen by vascular >10 years ago (9) Dyslipidemia: Plan: Unclear whether or not patient was on statin (10) Stasis dermatitis: Plan: Bilateral lower extremity erythema noted on admission. No warmth or elevated white count to indicate cellulitis. Continue to monitor DVT Ppx heparin subq BID Code status: FULL Disposition Waiting for placement Admission and Anticipated Discharge Date Admission Date: May 19, 2022 Subjective Patient was seen and examined for follow-up of back pain, constipation and ambulatory discomfort Sitting in chair with no acute distress playing solitary on her tablet Pt said that she feels fine. she said her daughter does not understand her like her son because she wants her to go to rehab She has been waiting for placement. she will be getting a bed to transfer to rehab on Denies any chest pain, palpitation, dizziness, fever, chill, shortness of breath, abdominal pain, nausea vomiting Review of Systems Review of Systems: All systems reviewed & are unremarkable except as noted in Subjective Physical Exam Physical Exam: General- No acute distress Head- atraumatic Eyes- PERRL, EOMI, ENT- oropharynx clear Neck- supple, no JVD Lungs- clear to auscultation Heart- regular rhythm; no murmur Abdomen- normal bowel sounds, soft, nontender Extremities- no calf tenderness, +trace edema Neuro- alert, oriented x 3; PERRL, EOMI; no facial palsy; no dysarthria Skin- warm & dry Results & Data Results & Data ([facility]) Vital Signs (Past 12 Hours) Vital Signs Temp Pulse Pulse Resp BP Pulse Ox O2 Del Method 06/02/22 23:25 36.5 C 62 16 148/70 H 97 Room Air 06/02/22 19:50 Room Air 06/02/22 15:16 36.8 C 64 16 141/61 H 98 Room Air (1) CKD (chronic kidney disease), stage III Chronic kidney disease stage 3 subtype: unspecified whether 3a or 3b Qualified Code(s): N18.30 - Chronic kidney disease, stage 3 unspecified
--- NOTE | 2022-06-03 07:49 | Hospitalist Progress Note ---
Date of Service June 03, 2022 Assessment & Plan (1) L3 vertebral fracture: (2) Spinal stenosis, lumbar: Plan: This is a 77yo F with a PMH of chronic left-sided back pain, chronic neck pain, type 2 diabetes, seizure disorder, CKD 4, hypertension, history of TIA, carotic stenosis s/p carotid endarterectomy, frequent falls and other medical problems listed below who presents with worsening left hip pain. CT lumbar spine with acute to subacute nondisplaced bilateral L3 pedicle fractures. Also with a subacute/healing inferior endplate compression fracture at L2 and multilevel degenerative changes as described above most pronounced at the L4-5 level which demonstrates severe central canal narrowing. Last fall was in March 2022. No weakness, bowel or bladder incontinence noted in past few days Case discussed with Dr. Vazquez- ortho surgery consult, lumbar spine of MRI ordered MRI L-spine IMPRESSION: 1. Nondisplaced subacute bilateral L3 pedicle fractures are again noted. 2. No additional acute fractures identified within the lumbar spine. 3. Multiple old compression deformities again noted throughout the lumbar spine. 4. Multilevel lumbar spondylosis as described above most pronounced at the L3-L4 and L4-5 levels which demonstrates severe central canal narrowing. Per ortho-spine Closed fracture of pedicle of lumbar vertebra: Assessment L3 pedicle fractures.Both the CAT scan and MRI demonstrate most likely a subacute L3 pedicle fractures. This is most likely due to the autofusion from L4 to the sacrum creating adjacent level stresses. She does exhibit severe multilevel spinal stenosis but does not exhibit gross neurogenic claudicatory symptoms. At this time in light of her health history I am very hesitant to recommend any surgical intervention. We will provide her with an LSO brace to wear when out of bed. We can continue to follow this with serial CAT scans over the course of the next several months. 05/21 R foot pain Now patient states that her back is not bothering her, however complains of right foot pain, will obtain x-ray No edema or erythema of ankle noted, very minimal tenderness to palpation of plantar surface R foot XR FINDINGS: Mild diffuse soft tissue swelling/edema. Small posterior calcaneal spur. Mild vascular calcifications are noted. The bones are osteopenic. Suboptimal positioning of the right foot. There appear to be old, healed fractures at the third through fifth metatarsals. No definite acute fracture or dislocation within the right foot. The Lisfranc joint appears intact. IMPRESSION: 1. Old, healed third through fifth metatarsal fractures. 2. No definite acute fracture or dislocation within the right foot. 3. Diffuse osteopenia and degenerative changes. Continue PT/OT eval Fall precaution Waiting for placement (3) UTI (urinary tract infection), uncomplicated: Plan: UA abnormal, 4+ bacteria present. Started empiric Rocephin. Urine culture positive for Klebsiella pneumonia - continued Rocephin while inpt, switched to cefuroxime to finish Abx course Completed course of the antibiotic (4) Seizure disorder: Plan: No seizure since 2003. Follows with Dr. Castellanos. Continue Zonegran and Lamictal (5) CKD (chronic kidney disease), stage III: Plan: History of CKD III-IV with baseline creatinine ~1.8-2. At baseline now, Avoid nephrotoxic agents when able. Continue monitor BMP (6) Hyperglycemia: (7) DM type 2 (diabetes mellitus, type 2): Plan: BSG 356 on arrival. Uncontrolled diabetes with A1c from 05/14/22 elevated at 11.8 Given 10 units of regular insulin in ER Current A1c 10.6% Hold oral home meds Glycemic pharmacy consulted for inpatient management, diabetic education and likely need for insulin at discharge, per family, patient was hesitant about insulin in the past Since pt refused to take any insulin pharmacy signed off Pt refused to take any insulin while inpatient and refused accue check BS She said that she will not take any insulin if discharge on any insulin Continue glipizide 5mg daily (8) Carotid stenosis: Plan: Status post remote left endarterectomy, history of TIA in 2003 Has stopped taking aspirin, statin and Plavix on her own Continue aspirin, statin now. Last seen by vascular >10 years ago (9) Dyslipidemia: Plan: Unclear whether or not patient was on statin (10) Stasis dermatitis: Plan: Bilateral lower extremity erythema noted on admission. No warmth or elevated white count to indicate cellulitis. Continue to monitor DVT Ppx heparin subq BID Code status: FULL Disposition Waiting for placement Admission and Anticipated Discharge Date Admission Date: May 19, 2022 Subjective Patient was seen and examined for follow-up of back pain, constipation and ambulatory dysfunction Sitting in chair in no acute distress Pt said that she feels fine. She has been waiting for placement. she will be getting a bed to transfer to rehab on Denies any chest pain, palpitation, dizziness, fever, chill, shortness of breath, abdominal pain, nausea vomiting Review of Systems Review of Systems: All systems reviewed & are unremarkable except as noted in Subjective Physical Exam Physical Exam: General- No acute distress Head- atraumatic Eyes- PERRL, EOMI, ENT- oropharynx clear Neck- supple, no JVD Lungs- clear to auscultation Heart- regular rhythm; no murmur Abdomen- normal bowel sounds, soft, nontender Extremities- no calf tenderness, +trace edema Neuro- alert, oriented x 3; PERRL, EOMI; no facial palsy; no dysarthria, moves extremities Skin- warm & dry Results & Data Results & Data ([facility]) Vital Signs (Past 12 Hours) Vital Signs Temp Pulse Resp BP Pulse Ox O2 Del Method 06/03/22 05:58 36.7 C 62 16 145/62 H 97 Room Air 06/02/22 23:25 36.5 C 62 16 148/70 H 97 Room Air 06/02/22 19:50 Room Air Laboratory Results 06/02/22 Range/Units 11:48 POC Glucose 220 H (70-99) mg/dl Medications Administered Current Inpatient Medications Acetaminophen (Acetaminophen 325 Mg Tab) 650 mg PO Q4H PRN PRN Reason: Pain Stop: 06/20/22 09:14 Last Admin: 06/02/22 23:26 Dose: 650 mg Ascorbic Acid (Ascorbic Acid 500 Mg Tab) 1,000 mg PO [facility] Stop: 06/19/22 08:59 Last Admin: 06/02/22 08:56 Dose: Not Given Aspirin (Aspirin 81 Mg Ectab) 81 mg PO [facility] Stop: 06/21/22 08:59 Last Admin: 06/02/22 08:56 Dose: Not Given Cyanocobalamin (Cyanocobalamin (B-12) 500 Mcg Tablet) 500 mcg PO [facility] Stop: 06/19/22 08:59 Last Admin: 06/02/22 08:56 Dose: Not Given Docusate Sodium (Docusate Sodium 100 Mg Cap) 100 mg PO BID [facility] Stop: 06/24/22 23:14 Last Admin: 06/02/22 19:50 Dose: Not Given Glipizide (Glipizide 5 Mg Tab) 5 mg PO DAILY@0730 [facility] Stop: 06/28/22 08:59 Last Admin: 06/02/22 08:53 Dose: 5 mg Heparin Sodium (Porcine) (Heparin Sod 5,000 Unit/0.5 Ml Vial) 5,000 units SQ Q12 [facility] Stop: 06/28/22 08:59 Last Admin: 06/02/22 19:50 Dose: Not Given Lamotrigine (Lamotrigine 100 Mg Tab) 100 mg PO BID [facility] Stop: 06/18/22 20:59 Last Admin: 06/02/22 19:50 Dose: 100 mg Metformin HCl (Metformin Hcl 500 Mg Tab) 500 mg PO QAM [facility] Stop: 06/22/22 08:59 Last Admin: 05/23/22 08:31 Dose: 500 mg Polyethylene Glycol (Polyethylene (Miralax) 17 Gm Pack) 17 gm PO DAILY [facility] Stop: 06/25/22 08:59 Last Admin: 06/02/22 08:57 Dose: Not Given Tramadol HCl (Tramadol Hcl 50 Mg Tablet) 50 mg PO BID PRN PRN Reason: Pain Stop: 06/18/22 16:41 Last Admin: 05/26/22 22:06 Dose: 50 mg Zonisamide (Zonisamide 100 Mg Capsule) 200 mg PO BID [facility] Stop: 06/19/22 08:59 Last Admin: 06/02/22 19:54 Dose: 200 mg (1) CKD (chronic kidney disease), stage III Chronic kidney disease stage 3 subtype: unspecified whether 3a or 3b Qualified Code(s): N18.30 - Chronic kidney disease, stage 3 unspecified
[2022-06-03] MEDS: CYANOCOBALAMIN (B-12) 500 MCG TABLET PO SCH (08:25)
[2022-06-03] MEDS: ASPIRIN 81 MG ECTAB PO SCH (08:25)
[2022-06-03] MEDS: glipiZIDE 5 MG TAB PO SCH (08:25)
[2022-06-03] MEDS: ASCORBIC ACID 500 MG TAB PO SCH (08:26)
[2022-06-03] MEDS: DOCUSATE SODIUM 100 MG CAP PO SCH ×2 (08:26→20:03)
[2022-06-03] MEDS: POLYETHYLENE (MIRALAX) 17 GM PACK PO SCH (08:27)
[2022-06-03] MEDS: HEPARIN SOD 5,000 UNIT/0.5 ML VIAL SQ SCH ×2 (08:27→20:03)
[2022-06-03] MEDS: lamoTRIgine 100 MG TAB PO SCH ×2 (08:27→20:03)
[2022-06-03] MEDS: ZONISAMIDE 100 MG CAPSULE PO SCH ×2 (08:58→20:04)
[2022-06-04] MEDS: glipiZIDE 5 MG TAB PO SCH (07:18)
[2022-06-04] MEDS: ASCORBIC ACID 500 MG TAB PO SCH (08:47)
[2022-06-04] MEDS: POLYETHYLENE (MIRALAX) 17 GM PACK PO SCH (08:48)
[2022-06-04] MEDS: ASPIRIN 81 MG ECTAB PO SCH (08:48)
[2022-06-04] MEDS: HEPARIN SOD 5,000 UNIT/0.5 ML VIAL SQ SCH ×2 (08:48→19:50)
[2022-06-04] MEDS: CYANOCOBALAMIN (B-12) 500 MCG TABLET PO SCH (08:48)
[2022-06-04] MEDS: DOCUSATE SODIUM 100 MG CAP PO SCH ×2 (08:48→19:50)
[2022-06-04] MEDS: lamoTRIgine 100 MG TAB PO SCH ×2 (08:49→19:50)
[2022-06-04] MEDS: ZONISAMIDE 100 MG CAPSULE PO SCH ×2 (08:49→19:50)
--- NOTE | 2022-06-04 12:09 | Hospitalist Progress Note ---
Date of Service June 04, 2022 Assessment & Plan (1) L3 vertebral fracture: (2) Spinal stenosis, lumbar: Plan: This is a 77yo F with a PMH of chronic left-sided back pain, chronic neck pain, type 2 diabetes, seizure disorder, CKD 4, hypertension, history of TIA, carotic stenosis s/p carotid endarterectomy, frequent falls and other medical problems listed below who presents with worsening left hip pain. CT lumbar spine with acute to subacute nondisplaced bilateral L3 pedicle fractures. Also with a subacute/healing inferior endplate compression fracture at L2 and multilevel degenerative changes as described above most pronounced at the L4-5 level which demonstrates severe central canal narrowing. Last fall was in March 2022. No weakness, bowel or bladder incontinence noted in past few days Case discussed with Dr. Vazquez- ortho surgery consult, lumbar spine of MRI ordered MRI L-spine IMPRESSION: 1. Nondisplaced subacute bilateral L3 pedicle fractures are again noted. 2. No additional acute fractures identified within the lumbar spine. 3. Multiple old compression deformities again noted throughout the lumbar spine. 4. Multilevel lumbar spondylosis as described above most pronounced at the L3-L4 and L4-5 levels which demonstrates severe central canal narrowing. Per ortho-spine Closed fracture of pedicle of lumbar vertebra: Assessment L3 pedicle fractures.Both the CAT scan and MRI demonstrate most likely a subacute L3 pedicle fractures. This is most likely due to the autofusion from L4 to the sacrum creating adjacent level stresses. She does exhibit severe multilevel spinal stenosis but does not exhibit gross neurogenic claudicatory symptoms. At this time in light of her health history I am very hesitant to recommend any surgical intervention. We will provide her with an LSO brace to wear when out of bed. We can continue to follow this with serial CAT scans over the course of the next several months. 05/21 R foot pain Now patient states that her back is not bothering her, however complains of right foot pain, will obtain x-ray No edema or erythema of ankle noted, very minimal tenderness to palpation of plantar surface R foot XR FINDINGS: Mild diffuse soft tissue swelling/edema. Small posterior calcaneal spur. Mild vascular calcifications are noted. The bones are osteopenic. Suboptimal positioning of the right foot. There appear to be old, healed fractures at the third through fifth metatarsals. No definite acute fracture or dislocation within the right foot. The Lisfranc joint appears intact. IMPRESSION: 1. Old, healed third through fifth metatarsal fractures. 2. No definite acute fracture or dislocation within the right foot. 3. Diffuse osteopenia and degenerative changes. Continue PT/OT eval Fall precaution Waiting for placement (3) UTI (urinary tract infection), uncomplicated: Plan: UA abnormal, 4+ bacteria present. Started empiric Rocephin. Urine culture positive for Klebsiella pneumonia - continued Rocephin while inpt, switched to cefuroxime to finish Abx course Completed course of the antibiotic (4) Seizure disorder: Plan: No seizure since 2003. Follows with Dr. Castellanos. Continue Zonegran and Lamictal (5) CKD (chronic kidney disease), stage III: Plan: History of CKD III-IV with baseline creatinine ~1.8-2. At baseline now, Avoid nephrotoxic agents when able. Continue monitor BMP (6) Hyperglycemia: (7) DM type 2 (diabetes mellitus, type 2): Plan: BSG 356 on arrival. Uncontrolled diabetes with A1c from 05/14/22 elevated at 11.8 Given 10 units of regular insulin in ER Current A1c 10.6% Hold oral home meds Glycemic pharmacy consulted for inpatient management, diabetic education and likely need for insulin at discharge, per family, patient was hesitant about insulin in the past Since pt refused to take any insulin pharmacy signed off Pt refused to take any insulin while inpatient and refused accue check BS She said that she will not take any insulin if discharge on any insulin Continue glipizide 5mg daily (8) Carotid stenosis: Plan: Status post remote left endarterectomy, history of TIA in 2003 Has stopped taking aspirin, statin and Plavix on her own Continue aspirin, statin now. Last seen by vascular >10 years ago (9) Dyslipidemia: Plan: Unclear whether or not patient was on statin (10) Stasis dermatitis: Plan: Bilateral lower extremity erythema noted on admission. No warmth or elevated white count to indicate cellulitis. Continue to monitor DVT Ppx heparin subq BID Code status: FULL Disposition Waiting for placement Admission and Anticipated Discharge Date Admission Date: May 19, 2022 Subjective Patient was seen and examined for follow-up of back pain, constipation and ambulatory dysfunction Sitting in chair in no acute distress Pt reports feeling fine. She has been waiting for placement. Denies any chest pain, palpitation, dizziness, fever, chill, shortness of breath, abdominal pain, nausea vomiting Review of Systems Review of Systems: All systems reviewed & are unremarkable except as noted in Subjective Physical Exam Physical Exam: General- No acute distress Head- atraumatic Eyes- PERRL, EOMI, ENT- oropharynx clear Neck- supple, no JVD Lungs- clear to auscultation Heart- regular rhythm; no murmur Abdomen- normal bowel sounds, soft, nontender Extremities- no calf tenderness, +trace edema Neuro- alert, oriented x 3; PERRL, EOMI; no facial palsy; no dysarthria, moves extremities Skin- warm & dry Results & Data Results & Data ([facility]) Vital Signs (Past 12 Hours) Vital Signs Temp Pulse Resp BP Pulse Ox O2 Del Method 06/04/22 07:05 36.7 C 69 14 109/62 95 Room Air Medications Administered Current Inpatient Medications Acetaminophen (Acetaminophen 325 Mg Tab) 650 mg PO Q4H PRN PRN Reason: Pain Stop: 06/20/22 09:14 Last Admin: 06/02/22 23:26 Dose: 650 mg Ascorbic Acid (Ascorbic Acid 500 Mg Tab) 1,000 mg PO QAM [facility] Stop: 06/19/22 08:59 Last Admin: 06/04/22 08:47 Dose: Not Given Aspirin (Aspirin 81 Mg Ectab) 81 mg PO QAM [facility] Stop: 06/21/22 08:59 Last Admin: 06/04/22 08:48 Dose: 81 mg Cyanocobalamin (Cyanocobalamin (B-12) 500 Mcg Tablet) 500 mcg PO QAM [facility] Stop: 06/19/22 08:59 Last Admin: 06/04/22 08:48 Dose: Not Given Docusate Sodium (Docusate Sodium 100 Mg Cap) 100 mg PO BID [facility] Stop: 06/24/22 23:14 Last Admin: 06/04/22 08:48 Dose: Not Given Glipizide (Glipizide 5 Mg Tab) 5 mg PO DAILY@0730 [facility] Stop: 06/28/22 08:59 Last Admin: 06/04/22 07:18 Dose: 5 mg Heparin Sodium (Porcine) (Heparin Sod 5,000 Unit/0.5 Ml Vial) 5,000 units SQ Q12 [facility] Stop: 06/28/22 08:59 Last Admin: 06/04/22 08:48 Dose: Not Given Lamotrigine (Lamotrigine 100 Mg Tab) 100 mg PO BID [facility] Stop: 06/18/22 20:59 Last Admin: 06/04/22 08:49 Dose: 100 mg Metformin HCl (Metformin Hcl 500 Mg Tab) 500 mg PO QAM [facility] Stop: 06/22/22 08:59 Last Admin: 05/23/22 08:31 Dose: 500 mg Polyethylene Glycol (Polyethylene (Miralax) 17 Gm Pack) 17 gm PO DAILY [facility] Stop: 06/25/22 08:59 Last Admin: 06/04/22 08:48 Dose: Not Given Tramadol HCl (Tramadol Hcl 50 Mg Tablet) 50 mg PO BID PRN PRN Reason: Pain Stop: 06/18/22 16:41 Last Admin: 05/26/22 22:06 Dose: 50 mg Zonisamide (Zonisamide 100 Mg Capsule) 200 mg PO BID [facility] Stop: 06/19/22 08:59 Last Admin: 06/04/22 08:49 Dose: 200 mg (1) CKD (chronic kidney disease), stage III Chronic kidney disease stage 3 subtype: unspecified whether 3a or 3b Qualified Code(s): N18.30 - Chronic kidney disease, stage 3 unspecified
[2022-06-05] MEDS: ACETAMINOPHEN 325 MG TAB PO PRN ×2 (01:14→23:49)
[2022-06-05] MEDS: HEPARIN SOD 5,000 UNIT/0.5 ML VIAL SQ SCH ×2 (07:46→21:28)
--- NOTE | 2022-06-05 08:39 | Hospitalist Progress Note ---
Date of Service June 05, 2022 Assessment & Plan (1) L3 vertebral fracture: (2) Spinal stenosis, lumbar: Plan: This is a 77yo F with a PMH of chronic left-sided back pain, chronic neck pain, type 2 diabetes, seizure disorder, CKD 4, hypertension, history of TIA, carotic stenosis s/p carotid endarterectomy, frequent falls and other medical problems listed below who presents with worsening left hip pain. CT lumbar spine with acute to subacute nondisplaced bilateral L3 pedicle fractures. Also with a subacute/healing inferior endplate compression fracture at L2 and multilevel degenerative changes as described above most pronounced at the L4-5 level which demonstrates severe central canal narrowing. Last fall was in March 2022. No weakness, bowel or bladder incontinence noted in past few days Case discussed with Dr. Vazquez- ortho surgery consult, lumbar spine of MRI ordered MRI L-spine IMPRESSION: 1. Nondisplaced subacute bilateral L3 pedicle fractures are again noted. 2. No additional acute fractures identified within the lumbar spine. 3. Multiple old compression deformities again noted throughout the lumbar spine. 4. Multilevel lumbar spondylosis as described above most pronounced at the L3-L4 and L4-5 levels which demonstrates severe central canal narrowing. Per ortho-spine Closed fracture of pedicle of lumbar vertebra: Assessment L3 pedicle fractures.Both the CAT scan and MRI demonstrate most likely a subacute L3 pedicle fractures. This is most likely due to the autofusion from L4 to the sacrum creating adjacent level stresses. She does exhibit severe multilevel spinal stenosis but does not exhibit gross neurogenic claudicatory symptoms. At this time in light of her health history I am very hesitant to recommend any surgical intervention. We will provide her with an LSO brace to wear when out of bed. We can continue to follow this with serial CAT scans over the course of the next several months. 05/21 R foot pain Now patient states that her back is not bothering her, however complains of right foot pain, will obtain x-ray No edema or erythema of ankle noted, very minimal tenderness to palpation of plantar surface R foot XR FINDINGS: Mild diffuse soft tissue swelling/edema. Small posterior calcaneal spur. Mild vascular calcifications are noted. The bones are osteopenic. Suboptimal positioning of the right foot. There appear to be old, healed fractures at the third through fifth metatarsals. No definite acute fracture or dislocation within the right foot. The Lisfranc joint appears intact. IMPRESSION: 1. Old, healed third through fifth metatarsal fractures. 2. No definite acute fracture or dislocation within the right foot. 3. Diffuse osteopenia and degenerative changes. Continue PT/OT eval Fall precaution Waiting for placement (3) UTI (urinary tract infection), uncomplicated: Plan: UA abnormal, 4+ bacteria present. Started empiric Rocephin. Urine culture positive for Klebsiella pneumonia - continued Rocephin while inpt, switched to cefuroxime to finish Abx course Completed course of the antibiotic (4) Seizure disorder: Plan: No seizure since 2003. Follows with Dr. Castellanos. Continue Zonegran and Lamictal (5) CKD (chronic kidney disease), stage III: Plan: History of CKD III-IV with baseline creatinine ~1.8-2. At baseline now, Avoid nephrotoxic agents when able. Continue monitor BMP (6) Hyperglycemia: (7) DM type 2 (diabetes mellitus, type 2): Plan: BSG 356 on arrival. Uncontrolled diabetes with A1c from 05/14/22 elevated at 11.8 Given 10 units of regular insulin in ER Current A1c 10.6% Hold oral home meds Glycemic pharmacy consulted for inpatient management, diabetic education and likely need for insulin at discharge, per family, patient was hesitant about insulin in the past Since pt refused to take any insulin pharmacy signed off Pt refused to take any insulin while inpatient and refused accue check BS She said that she will not take any insulin if discharge on any insulin Continue glipizide 5mg daily (8) Carotid stenosis: Plan: Status post remote left endarterectomy, history of TIA in 2003 Has stopped taking aspirin, statin and Plavix on her own Continue aspirin, statin now. Last seen by vascular >10 years ago (9) Dyslipidemia: Plan: Unclear whether or not patient was on statin (10) Stasis dermatitis: Plan: Bilateral lower extremity erythema noted on admission. No warmth or elevated white count to indicate cellulitis. Continue to monitor DVT Ppx heparin subq BID Code status: FULL Disposition Waiting for placement Admission and Anticipated Discharge Date Admission Date: May 19, 2022 Subjective Patient was seen and examined for follow-up of back pain, constipation and ambulatory dysfunction Sitting in chair in no acute distress Pt reports feeling fine. She has been waiting for placement. Denies any chest pain, palpitation, dizziness, fever, chill, shortness of breath, abdominal pain, nausea vomiting Review of Systems Review of Systems: All systems reviewed & are unremarkable except as noted in Subjective Physical Exam Physical Exam: General- No acute distress Head- atraumatic Eyes- PERRL, EOMI, ENT- oropharynx clear Neck- supple, no JVD Lungs- clear to auscultation Heart- regular rhythm; no murmur Abdomen- normal bowel sounds, soft, nontender Extremities- no calf tenderness, +trace edema Neuro- alert, oriented x 3; PERRL, EOMI; no facial palsy; no dysarthria, moves extremities Skin- warm & dry Results & Data Results & Data ([facility]) Vital Signs (Past 12 Hours) Vital Signs Temp Pulse Resp BP BP Pulse Ox O2 Del Method 06/05/22 07:43 Room Air 06/05/22 07:13 36.8 C 72 18 121/72 95 Room Air 06/04/22 22:37 36.5 C 67 16 136/62 98 Room Air Medications Administered Current Inpatient Medications Acetaminophen (Acetaminophen 325 Mg Tab) 650 mg PO Q4H PRN PRN Reason: Pain Stop: 06/20/22 09:14 Last Admin: 06/05/22 01:14 Dose: 650 mg Ascorbic Acid (Ascorbic Acid 500 Mg Tab) 1,000 mg [facility] [place] Stop: 06/19/22 08:59 Last Admin: 06/04/22 08:47 Dose: Not Given Aspirin (Aspirin 81 Mg Ectab) 81 mg PO QAM [facility] Stop: 06/21/22 08:59 Last Admin: 06/04/22 08:48 Dose: 81 mg Cyanocobalamin (Cyanocobalamin (B-12) 500 Mcg Tablet) 500 mcg PO QAM [facility] Stop: 06/19/22 08:59 Last Admin: 06/04/22 08:48 Dose: Not Given Docusate Sodium (Docusate Sodium 100 Mg Cap) 100 mg PO BID [facility] Stop: 06/24/22 23:14 Last Admin: 06/04/22 19:50 Dose: Not Given Glipizide (Glipizide 5 Mg Tab) 5 mg PO DAILY@0730 [facility] Stop: 06/28/22 08:59 Last Admin: 06/04/22 07:18 Dose: 5 mg Heparin Sodium (Porcine) (Heparin Sod 5,000 Unit/0.5 Ml Vial) 5,000 units SQ Q12 [facility] Stop: 06/28/22 08:59 Last Admin: 06/05/22 07:46 Dose: Not Given Lamotrigine (Lamotrigine 100 Mg Tab) 100 mg PO BID [facility] Stop: 06/18/22 20:59 Last Admin: 06/04/22 19:50 Dose: 100 mg Metformin HCl (Metformin Hcl 500 Mg Tab) 500 mg PO QAM [facility] Stop: 06/22/22 08:59 Last Admin: 05/23/22 08:31 Dose: 500 mg Polyethylene Glycol (Polyethylene (Miralax) 17 Gm Pack) 17 gm PO DAILY [facility] Stop: 06/25/22 08:59 Last Admin: 06/04/22 08:48 Dose: Not Given Tramadol HCl (Tramadol Hcl 50 Mg Tablet) 50 mg PO BID PRN PRN Reason: Pain Stop: 06/18/22 16:41 Last Admin: 05/26/22 22:06 Dose: 50 mg Zonisamide (Zonisamide 100 Mg Capsule) 200 mg PO BID [facility] Stop: 06/19/22 08:59 Last Admin: 06/04/22 19:50 Dose: 200 mg (1) CKD (chronic kidney disease), stage III Chronic kidney disease stage 3 subtype: unspecified whether 3a or 3b Qualified Code(s): N18.30 - Chronic kidney disease, stage 3 unspecified
[2022-06-05] MEDS: ZONISAMIDE 100 MG CAPSULE PO SCH ×2 (09:01→21:29)
[2022-06-05] MEDS: lamoTRIgine 100 MG TAB PO SCH ×2 (09:01→21:28)
[2022-06-05] MEDS: DOCUSATE SODIUM 100 MG CAP PO SCH ×2 (09:02→21:28)
[2022-06-05] MEDS: POLYETHYLENE (MIRALAX) 17 GM PACK PO SCH (09:02)
[2022-06-05] MEDS: glipiZIDE 5 MG TAB PO SCH (09:02)
[2022-06-05] MEDS: ASCORBIC ACID 500 MG TAB PO SCH (09:02)
[2022-06-05] MEDS: ASPIRIN 81 MG ECTAB PO SCH (09:02)
[2022-06-05] MEDS: CYANOCOBALAMIN (B-12) 500 MCG TABLET PO SCH (09:02)
[2022-06-06] MEDS: ZONISAMIDE 100 MG CAPSULE PO SCH ×2 (08:40→21:53)
[2022-06-06] MEDS: POLYETHYLENE (MIRALAX) 17 GM PACK PO SCH (08:41)
[2022-06-06] MEDS: DOCUSATE SODIUM 100 MG CAP PO SCH ×2 (08:41→21:53)
[2022-06-06] MEDS: HEPARIN SOD 5,000 UNIT/0.5 ML VIAL SQ SCH ×2 (08:41→21:53)
[2022-06-06] MEDS: lamoTRIgine 100 MG TAB PO SCH ×2 (08:41→21:53)
[2022-06-06] MEDS: glipiZIDE 5 MG TAB PO SCH (08:42)
[2022-06-06] MEDS: CYANOCOBALAMIN (B-12) 500 MCG TABLET PO SCH (08:45)
[2022-06-06] MEDS: ASCORBIC ACID 500 MG TAB PO SCH (08:45)
[2022-06-06] MEDS: ASPIRIN 81 MG ECTAB PO SCH (08:46)
--- NOTE | 2022-06-06 19:26 | Hospitalist Progress Note ---
Date of Service June 06, 2022 Assessment & Plan (1) L3 vertebral fracture: (2) Spinal stenosis, lumbar: Plan: This is a 77yo F with a PMH of chronic left-sided back pain, chronic neck pain, type 2 diabetes, seizure disorder, CKD 4, hypertension, history of TIA, carotic stenosis s/p carotid endarterectomy, frequent falls and other medical problems listed below who presents with worsening left hip pain. CT lumbar spine with acute to subacute nondisplaced bilateral L3 pedicle fractures. Also with a subacute/healing inferior endplate compression fracture at L2 and multilevel degenerative changes as described above most pronounced at the L4-5 level which demonstrates severe central canal narrowing. Last fall was in March 2022. No weakness, bowel or bladder incontinence noted in past few days Case discussed with Dr. Vazquez- ortho surgery consult, lumbar spine of MRI ordered MRI L-spine IMPRESSION: 1. Nondisplaced subacute bilateral L3 pedicle fractures are again noted. 2. No additional acute fractures identified within the lumbar spine. 3. Multiple old compression deformities again noted throughout the lumbar spine. 4. Multilevel lumbar spondylosis as described above most pronounced at the L3-L4 and L4-5 levels which demonstrates severe central canal narrowing. Per ortho-spine Closed fracture of pedicle of lumbar vertebra: Assessment L3 pedicle fractures.Both the CAT scan and MRI demonstrate most likely a subacute L3 pedicle fractures. This is most likely due to the autofusion from L4 to the sacrum creating adjacent level stresses. She does exhibit severe multilevel spinal stenosis but does not exhibit gross neurogenic claudicatory symptoms. At this time in light of her health history I am very hesitant to recommend any surgical intervention. We will provide her with an LSO brace to wear when out of bed. We can continue to follow this with serial CAT scans over the course of the next several months. 05/21 R foot pain patient reports that her back is not bothering her, however complains of right foot pain, btain x-ray No edema or erythema of ankle noted, very minimal tenderness to palpation of plantar surface R foot XR FINDINGS: Mild diffuse soft tissue swelling/edema. Small posterior calcaneal spur. Mild vascular calcifications are noted. The bones are osteopenic. Suboptimal positioning of the right foot. There appear to be old, healed fractures at the third through fifth metatarsals. No definite acute fracture or dislocation within the right foot. The Lisfranc joint appears intact. IMPRESSION: 1. Old, healed third through fifth metatarsal fractures. 2. No definite acute fracture or dislocation within the right foot. 3. Diffuse osteopenia and degenerative changes. Continue PT/OT eval Fall precaution Waiting for placement (3) UTI (urinary tract infection), uncomplicated: Plan: UA abnormal, 4+ bacteria present. Started empiric Rocephin. Urine culture positive for Klebsiella pneumonia - continued Rocephin while inpt, switched to cefuroxime to finish Abx course Completed course of the antibiotic (4) Seizure disorder: Plan: No seizure since 2003. Follows with Dr. Castellanos. Continue Zonegran and Lamictal (5) CKD (chronic kidney disease), stage III: Plan: History of CKD III-IV with baseline creatinine ~1.8-2. At baseline now, Avoid nephrotoxic agents when able. Continue monitor BMP (6) Hyperglycemia: (7) DM type 2 (diabetes mellitus, type 2): Plan: BSG 356 on arrival. Uncontrolled diabetes with A1c from 05/14/22 elevated at 11.8 Given 10 units of regular insulin in ER Current A1c 10.6% Hold oral home meds Glycemic pharmacy consulted for inpatient management, diabetic education and likely need for insulin at discharge, per family, patient was hesitant about insulin in the past Since pt refused to take any insulin pharmacy signed off Pt refused to take any insulin while inpatient and refused accue check BS She said that she will not take any insulin if discharge on any insulin Continue glipizide 5mg daily (8) Carotid stenosis: Plan: Status post remote left endarterectomy, history of TIA in 2003 Has stopped taking aspirin, statin and Plavix on her own Continue aspirin, statin now. Last seen by vascular >10 years ago (9) Dyslipidemia: Plan: Unclear whether or not patient was on statin (10) Stasis dermatitis: Plan: Bilateral lower extremity erythema noted on admission. No warmth or elevated w riki count to indicate cellulitis. Continue to monitor DVT Ppx heparin subq BID Code status: FULL Disposition Waiting for placement Admission and Anticipated Discharge Date Admission Date: May 19, 2022 Subjective Patient was seen and examined for follow-up of back pain, constipation and ambulatory dysfunction Sitting up in chair in no acute distress Pt reports feeling fine. She has been waiting for placement. Denies any chest pain, palpitation, dizziness, fever, chill, shortness of breath, abdominal pain, nausea vomiting Review of Systems Review of Systems: All systems reviewed & are unremarkable except as noted in Subjective Physical Exam Physical Exam: General- No acute distress Head- atraumatic Eyes- PERRL, EOMI, ENT- oropharynx clear Neck- supple, no JVD Lungs- clear to auscultation Heart- regular rhythm; no murmur Abdomen- normal bowel sounds, soft, nontender Extremities- no calf tenderness, +trace edema Neuro- alert, oriented x 3; PERRL, EOMI; no facial palsy; no dysarthria, moves extremities Skin- warm & dry Results & Data Results & Data ([facility]) Vital Signs (Past 12 Hours) Vital Signs Temp Pulse Resp BP Pulse Ox O2 Del Method 06/06/22 14:58 36.4 C L 64 16 140/60 99 Room Air 06/06/22 07:54 Room Air Laboratory Results 06/06/22 Range/Units 07:41 POC Glucose 108 H (70-99) mg/dl Medications Administered Current Inpatient Medications Acetaminophen (Acetaminophen 325 Mg Tab) 650 mg PO Q4H PRN PRN Reason: Pain Stop: 06/20/22 09:14 Last Admin: 06/05/22 23:49 Dose: 650 mg Ascorbic Acid (Ascorbic Acid 500 Mg Tab) [facility] [place]: 06/19/22 08:59 Last Admin: 06/06/22 08:45 Dose: Not Given Aspirin (Aspirin 81 Mg Ectab) 81 mg PO QAM [facility] Stop: 06/21/22 08:59 Last Admin: 06/06/22 08:46 Dose: Not Given Cyanocobalamin (Cyanocobalamin (B-12) 500 Mcg Tablet) 500 mcg PO QAM [facility] Stop: 06/19/22 08:59 Last Admin: 06/06/22 08:45 Dose: Not Given Docusate Sodium (Docusate Sodium 100 Mg Cap) 100 mg PO BID [facility] Stop: 06/24/22 23:14 Last Admin: 06/06/22 08:41 Dose: Not Given Glipizide (Glipizide 5 Mg Tab) 5 mg PO DAILY@0730 [facility] Stop: 06/28/22 08:59 Last Admin: 06/06/22 08:42 Dose: 5 mg Heparin Sodium (Porcine) (Heparin Sod 5,000 Unit/0.5 Ml Vial) 5,000 units SQ Q12 [facility] Stop: 06/28/22 08:59 Last Admin: 06/06/22 08:41 Dose: Not Given Lamotrigine (Lamotrigine 100 Mg Tab) 100 mg PO BID [facility] Stop: 06/18/22 20:59 Last Admin: 06/06/22 08:41 Dose: 100 mg Metformin HCl (Metformin Hcl 500 Mg Tab) 500 mg PO QAM [facility] Stop: 06/22/22 08:59 Last Admin: 05/23/22 08:31 Dose: 500 mg Polyethylene Glycol (Polyethylene (Miralax) 17 Gm Pack) 17 gm PO DAILY [facility] Stop: 06/25/22 08:59 Last Admin: 06/06/22 08:41 Dose: Not Given Tramadol HCl (Tramadol Hcl 50 Mg Tablet) 50 mg PO BID PRN PRN Reason: Pain Stop: 06/18/22 16:41 Last Admin: 05/26/22 22:06 Dose: 50 mg Zonisamide (Zonisamide 100 Mg Capsule) 200 mg PO BID [facility] Stop: 06/19/22 08:59 Last Admin: 06/06/22 08:40 Dose: 200 mg (1) CKD (chronic kidney disease), stage III Chronic kidney disease stage 3 subtype: unspecified whether 3a or 3b Qualified Code(s): N18.30 - Chronic kidney disease, stage 3 unspecified
[2022-06-07] MEDS: traMADol HCL 50 MG TABLET PO PRN (01:27)
[2022-06-07] MEDS: ACETAMINOPHEN 325 MG TAB PO PRN (04:14)
[2022-06-07] MEDS: lamoTRIgine 100 MG TAB PO SCH ×2 (07:25→20:27)
[2022-06-07] MEDS: ZONISAMIDE 100 MG CAPSULE PO SCH ×2 (07:25→20:27)
[2022-06-07] MEDS: glipiZIDE 5 MG TAB PO SCH (07:26)
[2022-06-07] MEDS: POLYETHYLENE (MIRALAX) 17 GM PACK PO SCH (07:27)
[2022-06-07] MEDS: HEPARIN SOD 5,000 UNIT/0.5 ML VIAL SQ SCH ×2 (07:27→20:26)
[2022-06-07] MEDS: ASPIRIN 81 MG ECTAB PO SCH (07:28)
[2022-06-07] MEDS: DOCUSATE SODIUM 100 MG CAP PO SCH ×2 (07:28→20:27)
[2022-06-07] MEDS: CYANOCOBALAMIN (B-12) 500 MCG TABLET PO SCH (07:28)
[2022-06-07] MEDS: ASCORBIC ACID 500 MG TAB PO SCH (07:28)
--- NOTE | 2022-06-07 07:58 | Hospitalist Progress Note ---
Date of Service June 07, 2022 Assessment & Plan (1) L3 vertebral fracture: (2) Spinal stenosis, lumbar: Plan: This is a 77yo F with a PMH of chronic left-sided back pain, chronic neck pain, type 2 diabetes, seizure disorder, CKD 4, hypertension, history of TIA, carotic stenosis s/p carotid endarterectomy, frequent falls and other medical problems listed below who presents with worsening left hip pain. CT lumbar spine with acute to subacute nondisplaced bilateral L3 pedicle fractures. Also with a subacute/healing inferior endplate compression fracture at L2 and multilevel degenerative changes as described above most pronounced at the L4-5 level which demonstrates severe central canal narrowing. Last fall was in March 2022. No weakness, bowel or bladder incontinence noted in past few days Case discussed with Dr. Vazquez- ortho surgery consult, lumbar spine of MRI ordered MRI L-spine IMPRESSION: 1. Nondisplaced subacute bilateral L3 pedicle fractures are again noted. 2. No additional acute fractures identified within the lumbar spine. 3. Multiple old compression deformities again noted throughout the lumbar spine. 4. Multilevel lumbar spondylosis as described above most pronounced at the L3-L4 and L4-5 levels which demonstrates severe central canal narrowing. Per ortho-spine Closed fracture of pedicle of lumbar vertebra: Assessment L3 pedicle fractures.Both the CAT scan and MRI demonstrate most likely a subacute L3 pedicle fractures. This is most likely due to the autofusion from L4 to the sacrum creating adjacent level stresses. She does exhibit severe multilevel spinal stenosis but does not exhibit gross neurogenic claudicatory symptoms. At this time in light of her health history I am very hesitant to recommend any surgical intervention. We will provide her with an LSO brace to wear when out of bed. We can continue to follow this with serial CAT scans over the course of the next several months. 05/21 R foot pain patient reports that her back is not bothering her, however complains of right foot pain, obtain x-ray No edema or erythema of ankle noted, very minimal tenderness to palpation of plantar surface R foot XR FINDINGS: Mild diffuse soft tissue swelling/edema. Small posterior calcaneal spur. Mild vascular calcifications are noted. The bones are osteopenic. Suboptimal positioning of the right foot. There appear to be old, healed fractures at the third through fifth metatarsals. No definite acute fracture or dislocation within the right foot. The Lisfranc joint appears intact. IMPRESSION: 1. Old, healed third through fifth metatarsal fractures. 2. No definite acute fracture or dislocation within the right foot. 3. Diffuse osteopenia and degenerative changes. Continue PT/OT eval Fall precaution Waiting for placement (3) UTI (urinary tract infection), uncomplicated: Plan: UA abnormal, 4+ bacteria present. Started empiric Rocephin. Urine culture positive for Klebsiella pneumonia - continued Rocephin while inpt, switched to cefuroxime to finish Abx course Completed course of the antibiotic (4) Seizure disorder: Plan: No seizure since 2003. Follows with Dr. Castellanos. Continue Zonegran and Lamictal (5) CKD (chronic kidney disease), stage III: Plan: History of CKD III-IV with baseline creatinine ~1.8-2. At baseline now, Avoid nephrotoxic agents when able. Continue monitor BMP (6) Hyperglycemia: (7) DM type 2 (diabetes mellitus, type 2): Plan: BSG 356 on arrival. Uncontrolled diabetes with A1c from 05/14/22 elevated at 11.8 Given 10 units of regular insulin in ER Current A1c 10.6% Hold oral home meds Glycemic pharmacy consulted for inpatient management, diabetic education and likely need for insulin at discharge, per family, patient was hesitant about insulin in the past Since pt refused to take any insulin pharmacy signed off Pt refused to take any insulin while inpatient and refused accue check BS She said that she will not take any insulin if discharged on any insulin Continue glipizide 5mg daily (8) Carotid stenosis: Plan: Status post remote left endarterectomy, history of TIA in 2003 Has stopped taking aspirin, statin and Plavix on her own Continue aspirin, ?statin now. Last seen by vascular >10 years ago (9) Dyslipidemia: Plan: Unclear whether or not patient was on statin (10) Stasis dermatitis: Plan: Bilateral lower extremity erythema noted on admission. No warmth or elevated white count to indicate cellulitis. edema has resolved - likely from venous stasis doppler negat. for DVT Continue to monitor DVT Ppx heparin subq BID Code status: FULL Disposition Waiting for placement Admission and Anticipated Discharge Date Admission Date: May 19, 2022 Subjective Patient was seen and examined for follow-up of back pain, constipation and ambulatory dysfunction Sitting up in chair in no acute distress Pt reports feeling fine. She has been waiting for placement. Denies any chest pain, palpitation, dizziness, fever, chill, shortness of breath, abdominal pain, nausea vomiting Review of Systems Review of Systems: All systems reviewed & are unremarkable except as noted in Subjective Physical Exam Physical Exam: General- No acute distress Head- atraumatic Eyes- PERRL, EOMI, ENT- oropharynx clear Neck- supple, no JVD Lungs- clear to auscultation Heart- regular rhythm; no murmur Abdomen- normal bowel sounds, soft, nontender Extremities- no calf tenderness, +trace edema Neuro- alert, oriented x 3; PERRL, EOMI; no facial palsy; no dysarthria, moves extremities Skin- warm & dry Results & Data Results & Data ([facility]) Vital Signs (Past 12 Hours) Vital Signs Temp Pulse Resp BP BP Pulse Ox O2 Del Method 06/07/22 06:57 36.6 C 58 L 16 143/71 H 98 Room Air 06/06/22 21:50 Room Air 06/06/22 21:25 36.4 C L 75 18 146/77 H 100 Room Air Medications Administered Current Inpatient Medications Acetaminophen (Acetaminophen 325 Mg Tab) 650 mg PO Q4H PRN PRN Reason: Pain Stop: 06/20/22 09:14 Last Admin: 06/07/22 04:14 Dose: 650 mg Ascorbic Acid (Ascorbic Acid 500 Mg Tab) 1,000 mg PO [facility] Stop: 06/19/22 08:59 Last Admin: 06/07/22 07:28 Dose: Not Given Aspirin (Aspirin 81 Mg Ectab) 81 mg PO [facility] Stop: 06/21/22 08:59 Last Admin: 06/07/22 07:28 Dose: Not Given Cyanocobalamin (Cyanocobalamin (B-12) 500 Mcg Tablet) 500 mcg PO QAM [facility] Stop: 06/19/22 08:59 Last Admin: 06/07/22 07:28 Dose: Not Given Docusate Sodium (Docusate Sodium 100 Mg Cap) 100 mg PO BID [facility] Stop: 06/24/22 23:14 Last Admin: 06/07/22 07:28 Dose: Not Given Glipizide (Glipizide 5 Mg Tab) 5 mg PO DAILY@0730 [facility] Stop: 06/28/22 08:59 Last Admin: 06/07/22 07:26 Dose: 5 mg Heparin Sodium (Porcine) (Heparin Sod 5,000 Unit/0.5 Ml Vial) 5,000 units SQ Q12 [facility] Stop: 06/28/22 08:59 Last Admin: 06/07/22 07:27 Dose: Not Given Lamotrigine (Lamotrigine 100 Mg Tab) 100 mg PO BID [facility] Stop: 06/18/22 20:59 Last Admin: 06/07/22 07:25 Dose: 100 mg Metformin HCl (Metformin Hcl 500 Mg Tab) 500 mg PO QAM [facility] Stop: 06/22/22 08:59 Last Admin: 05/23/22 08:31 Dose: 500 mg Polyethylene Glycol (Polyethylene (Miralax) 17 Gm Pack) 17 gm PO DAILY [facility] Stop: 06/25/22 08:59 Last Admin: 06/07/22 07:27 Dose: Not Given Tramadol HCl (Tramadol Hcl 50 Mg Tablet) 50 mg PO BID PRN PRN Reason: Pain Stop: 06/18/22 16:41 Last Admin: 06/07/22 01:27 Dose: 50 mg Zonisamide (Zonisamide 100 Mg Capsule) 200 mg PO BID [facility] Stop: 06/19/22 08:59 Last Admin: 06/07/22 07:25 Dose: 200 mg (1) CKD (chronic kidney disease), stage III Chronic kidney disease stage 3 subtype: unspecified whether 3a or 3b Qualified Code(s): N18.30 - Chronic kidney disease, stage 3 unspecified
--- NOTE | 2022-06-08 07:58 | Hospitalist Progress Note ---
Date of Service June 08, 2022 Assessment & Plan (1) L3 vertebral fracture: (2) Spinal stenosis, lumbar: Plan: This is a 77yo F with a PMH of chronic left-sided back pain, chronic neck pain, type 2 diabetes, seizure disorder, CKD 4, hypertension, history of TIA, carotic stenosis s/p carotid endarterectomy, frequent falls and other medical problems listed below who presents with worsening left hip pain. CT lumbar spine with acute to subacute nondisplaced bilateral L3 pedicle fractures. Also with a subacute/healing inferior endplate compression fracture at L2 and multilevel degenerative changes as described above most pronounced at the L4-5 level which demonstrates severe central canal narrowing. Last fall was in March 2022. No weakness, bowel or bladder incontinence noted in past few days Case discussed with Dr. Vazquez- ortho surgery consult, lumbar spine of MRI ordered MRI L-spine IMPRESSION: 1. Nondisplaced subacute bilateral L3 pedicle fractures are again noted. 2. No additional acute fractures identified within the lumbar spine. 3. Multiple old compression deformities again noted throughout the lumbar spine. 4. Multilevel lumbar spondylosis as described above most pronounced at the L3-L4 and L4-5 levels which demonstrates severe central canal narrowing. Per ortho-spine Closed fracture of pedicle of lumbar vertebra: Assessment L3 pedicle fractures.Both the CAT scan and MRI demonstrate most likely a subacute L3 pedicle fractures. This is most likely due to the autofusion from L4 to the sacrum creating adjacent level stresses. She does exhibit severe multilevel spinal stenosis but does not exhibit gross neurogenic claudicatory symptoms. At this time in light of her health history I am very hesitant to recommend any surgical intervention. We will provide her with an LSO brace to wear when out of bed. We can continue to follow this with serial CAT scans over the course of the next several months. 05/21 R foot pain patient reports that her back is not bothering her, however complains of right foot pain, obtain x-ray No edema or erythema of ankle noted, very minimal tenderness to palpation of plantar surface R foot XR FINDINGS: Mild diffuse soft tissue swelling/edema. Small posterior calcaneal spur. Mild vascular calcifications are noted. The bones are osteopenic. Suboptimal positioning of the right foot. There appear to be old, healed fractures at the third through fifth metatarsals. No definite acute fracture or dislocation within the right foot. The Lisfranc joint appears intact. IMPRESSION: 1. Old, healed third through fifth metatarsal fractures. 2. No definite acute fracture or dislocation within the right foot. 3. Diffuse osteopenia and degenerative changes. Continue PT/OT eval Fall precaution (3) UTI (urinary tract infection), uncomplicated: Plan: UA abnormal, 4+ bacteria present. Started empiric Rocephin. Urine culture positive for Klebsiella pneumonia - continued Rocephin while inpt, switched to cefuroxime to finish Abx course Completed course of the antibiotic (4) Seizure disorder: Plan: No seizure since 2003. Follows with Dr. Castellanos. Continue Zonegran and Lamictal (5) CKD (chronic kidney disease), stage III: Plan: History of CKD III-IV with baseline creatinine ~1.8-2. At baseline now, Avoid nephrotoxic agents when able. Continue monitor BMP (6) Hyperglycemia: (7) DM type 2 (diabetes mellitus, type 2): Plan: BSG 356 on arrival. Uncontrolled diabetes with A1c from 05/14/22 elevated at 11.8 Given 10 units of regular insulin in ER Current A1c 10.6% Hold oral home meds Glycemic pharmacy consulted for inpatient management, diabetic education and likely need for insulin at discharge, per family, patient was hesitant about insulin in the past Since pt refused to take any insulin pharmacy signed off Pt refused to take any insulin while inpatient and refused accue check BS She said that she will not take any insulin if discharged on any insulin Continue glipizide 5mg daily (8) Carotid stenosis: Plan: Status post remote left endarterectomy, history of TIA in 2003 Has stopped taking aspirin, statin and Plavix on her own Continue aspirin, ?statin now. Last seen by vascular >10 years ago (9) Dyslipidemia: Plan: Unclear whether or not patient was on statin (10) Stasis dermatitis: Plan: Bilateral lower extremity erythema noted on admission. No warmth or elevated white count to indicate cellulitis. edema has resolved - likely from venous stasis doppler negat. for DVT Continue to monitor DVT Ppx heparin subq BID Code status: FULL Disposition Pt was waiting for placement -as there was no bed available in any facility that patient was interested in, family decided to take patient home, son to stay with her until paid caregivers available next week. Admission and Anticipated Discharge Date Admission Date: May 19, 2022 Subjective Patient was seen and examined for follow-up of back pain, constipation and ambulatory dysfunction Sitting up in chair in no acute distress Pt reports feeling fine. She has been waiting for placement. Denies any chest pain, palpitation, dizziness, fever, chill, shortness of breath, abdominal pain, nausea vomiting Review of Systems Review of Systems: All systems reviewed & are unremarkable except as noted in Subjective Physical Exam Physical Exam: General- No acute distress Head- atraumatic Eyes- PERRL, EOMI, ENT- oropharynx clear Neck- supple, no JVD Lungs- clear to auscultation Heart- regular rhythm; no murmur Abdomen- normal bowel sounds, soft, nontender Extremities- no calf tenderness, +trace edema Neuro- alert, oriented x 3; PERRL, EOMI; no facial palsy; no dysarthria, moves extremities Skin- warm & dry Results & Data Results & Data ([facility]) Vital Signs (Past 12 Hours) Vital Signs Temp Pulse Resp BP Pulse Ox O2 Del Method 06/07/22 22:58 36.3 C L 71 18 155/83 H 99 Room Air Medications Administered Current Inpatient Medications Acetaminophen (Acetaminophen 325 Mg Tab) 650 mg PO Q4H PRN PRN Reason: Pain Stop: 06/20/22 09:14 Last Admin: 06/07/22 04:14 Dose: 650 mg Ascorbic Acid (Ascorbic Acid 500 Mg Tab) 1,000 mg PO [facility] Stop: 06/19/22 08:59 Last Admin: 06/07/22 07:28 Dose: Not Given Aspirin (Aspirin 81 Mg Ectab) 81 mg PO [facility] Stop: 06/21/22 08:59 Last Admin: 06/07/22 07:28 Dose: Not Given Cyanocobalamin (Cyanocobalamin (B-12) 500 Mcg Tablet) 500 mcg PO QAM [facility] Stop: 06/19/22 08:59 Last Admin: 06/07/22 07:28 Dose: Not Given Docusate Sodium (Docusate Sodium 100 Mg Cap) 100 mg PO BID [facility] Stop: 06/24/22 23:14 Last Admin: 06/07/22 20:27 Dose: Not Given Glipizide (Glipizide 5 Mg Tab) 5 mg PO DAILY@0730 [facility] Stop: 06/28/22 08:59 Last Admin: 06/07/22 07:26 Dose: 5 mg Heparin Sodium (Porcine) (Heparin Sod 5,000 Unit/0.5 Ml Vial) 5,000 units SQ Q12 [facility] Stop: 06/28/22 08:59 Last Admin: 06/07/22 20:26 Dose: Not Given Lamotrigine (Lamotrigine 100 Mg Tab) 100 mg PO BID [facility] Stop: 06/18/22 20:59 Last Admin: 06/07/22 20:27 Dose: 100 mg Metformin HCl (Metformin Hcl 500 Mg Tab) 500 mg PO QAM [facility] Stop: 06/22/22 08:59 Last Admin: 05/23/22 08:31 Dose: 500 mg Polyethylene Glycol (Polyethylene (Miralax) 17 Gm Pack) 17 gm PO DAILY [facility] Stop: 06/25/22 08:59 Last Admin: 06/07/22 07:27 Dose: Not Given Tramadol HCl (Tramadol Hcl 50 Mg Tablet) 50 mg PO BID PRN PRN Reason: Pain Stop: 06/18/22 16:41 Last Admin: 06/07/22 01:27 Dose: 50 mg Zonisamide (Zonisamide 100 Mg Capsule) 200 mg PO BID [facility] Stop: 06/19/22 08:59 Last Admin: 06/07/22 20:27 Dose: 200 mg (1) CKD (chronic kidney disease), stage III Chronic kidney disease stage 3 subtype: unspecified whether 3a or 3b Qualified Code(s): N18.30 - Chronic kidney disease, stage 3 unspecified
[2022-06-08] MEDS: lamoTRIgine 100 MG TAB PO SCH (08:25)
[2022-06-08] MEDS: ZONISAMIDE 100 MG CAPSULE PO SCH (08:25)
[2022-06-08] MEDS: glipiZIDE 5 MG TAB PO SCH (08:25)
[2022-06-08] MEDS: CYANOCOBALAMIN (B-12) 500 MCG TABLET PO SCH (08:26)
[2022-06-08] MEDS: ASCORBIC ACID 500 MG TAB PO SCH (08:26)
[2022-06-08] MEDS: ASPIRIN 81 MG ECTAB PO SCH (08:26)
[2022-06-08] MEDS: DOCUSATE SODIUM 100 MG CAP PO SCH (08:26)
[2022-06-08] MEDS: HEPARIN SOD 5,000 UNIT/0.5 ML VIAL SQ SCH (08:27)
[2022-06-08] MEDS: POLYETHYLENE (MIRALAX) 17 GM PACK PO SCH (08:27)
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
== END 2022-06-08 17:17 | disposition home or self-care (01) ==
LOC: ED 12:19 → 3W 15:49 → INTOOBSV 15:49 → SUATTDRO 15:49 → 3W 17:10
DX: Z86.73 Personal history of transient ischemic attack (TIA), and cerebral infarction without residual deficits; N39.0 Urinary tract infection, site not specified; E78.5 Hyperlipidemia, unspecified; E11.22 Type 2 diabetes mellitus with diabetic chronic kidney disease; R51.9 Headache, unspecified; Z88.5 Allergy status to narcotic agent; X58.XXXA Exposure to other specified factors, initial encounter; N18.30 Chronic kidney disease, stage 3 unspecified; M79.605 Pain in left leg; M79.604 Pain in right leg; M48.061 Spinal stenosis, lumbar region without neurogenic claudication; E11.65 Type 2 diabetes mellitus with hyperglycemia; S32.039A Unspecified fracture of third lumbar vertebra, initial encounter for closed fracture; Z88.8 Allergy status to other drugs, medicaments and biological substances; I77.1 Stricture of artery

== ENCOUNTER 2022-09-15 12:47 | Inpatient (IN) ==
[2022-09-15] MEDS ORDERED: SODIUM CHLORIDE 0.9% 500 ML IV SCH (13:00)
--- NOTE | 2022-09-15 13:00 | Emergency Department Note ---
Impression & Plan Weakness, Diarrhea, COVID-19 ED Provider Note NAME: ELIZABETH ISSA AGE: 77 SEX: F : 1945 ARRIVES VIA: Ambulance INFORMANT: [Patient][nursing] ED PROVIDER(S): [Delta Ospina MD] CHIEF COMPLAINT: Diarrhea HISTORY OF PRESENT ILLNESS: The patient is a 77-year-old female who states that earlier this morning at around 6 AM, about 7 hours ago, she began having profuse uncontrollable diarrhea. The stool is dark brown but not bloody. She has no abdominal pain but does feel bloated. She is weak. There has been no cough or congestion or shortness of breath. The patient did stop antibiotics last week, about 5 days ago. She was on the antibiotics for a UTI. REVIEW OF SYSTEMS: See HPI for pertinent positives and negatives. A total of ten systems were reviewed and were otherwise negative. PMHx/PSHx: See Below SOCIAL HISTORY: See Below. PHYSICAL EXAM: GENERAL: Patient is in no acute distress. Covered in stool. HEENT: No acute trauma, normocephalic atraumatic, mucous membranes moist, no nasal congestion, no scleral icterus. NECK: No stridor, no adenopathy, no meningismus, trachea is midline. LUNGS: Clear to auscultation bilaterally, no wheeze, no rhonchi, breath sounds equal. HEART: Without murmurs gallops or rubs, regular rate and rhythm. ABDOMEN: Soft, patient does have a distended abdomen with tympany to percussion. No peritonitis, no tenderness. EXTREMITIES: No cyanosis. There is mild bilateral pedal edema with some lower e xtremity erythema and warmth bilaterally. No drainage. NEUROLOGIC: Oriented x 3, no acute motor or sensory deficits, no focal weakness. SKIN: No rash, no jaundice, no diaphoresis. Pale. Rectal: Stool was tested and was dark in color but heme-negative. DIFFERENTIAL DIAGNOSIS: Colitis, diverticulitis, GI bleeding, medication reaction, C. difficile colitis, foodborne or viral illness, dehydration, electrolyte imbalance, anemia, among others. EMERGENCY DEPARTMENT COURSE/PROCEDURES: ECG: Indication was weakness. The ECG shows a sinus rhythm with some sinus arrhythmia. The rate is 75. LVH is present. There is some poor R wave progression consistent with a potential old anterior infarct. There is no ST elevation. No PVCs. The QTc is 424 Continuous Cardiac Monitoring: An order was placed for continuous cardiac monitoring. The monitor shows a rate of 82 with normal sinus rhythm. MEDICAL DECISION MAKING: There is no leukocytosis. A very mild anemia was noted. There was a normal platelet count. Creatinine was elevated at 1.9, this is baseline for the patient. No electrolyte abnormality in need of emergent correction. No concerning liver enzyme elevation. The TSH was high however, the T4 was normal. Stool bio fire testing was negative. Stool C. difficile testing was negative. COVID test returned positive. Influenza and RSV test returned negative. Abdominal and pelvis CT did not show colitis or diverticulitis, no bowel obstruction. Chest x-ray showed potential pulmonary congestion versus changes from her body habitus. On my exam, her stool was dark brown in color and did test heme negative. The patient was covered in stool upon arrival. The patient received 1 L of IV saline. She did not require anything for pain. The patient presents with diarrhea and the inability to care for herself. She cannot get to the bathroom in time and has lost bowel continence multiple times at home. The patient cannot be discharged in this situation, she is too weak, she cannot care for herself. I suspect her diarrhea is actually from her COVID-19 infecti on. Nothing else found by work-up that would explain the symptoms. The patient is currently resting. I did speak with the patient at length, I talked to case management. The on-call hospitalist was consulted. 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 GERD (gastroesophageal reflux disease) Hypotension Hypothyroidism Intertrochanteric fracture of right hip (07/18/14) Migraine Osteoarthritis Osteoarthritis of shoulder Osteoporosis, senile PAD (peripheral artery disease) Rhabdomyolysis Screening for skin condition Stasis dermatitis Venous stasis ulcer of right lower extremity Vertebral fracture, osteoporotic Surgical History H/O total knee replacement History of bilateral knee replacement History of left-sided carotid endarterectomy S/P cholecystectomy S/P rotator cuff repair Family History Mother Transitional cell carcinoma of bladder Diabetes Cardiac disorder Hypertension Ovarian cancer Grandmother Cancer Uncle Cancer Father Cardiac disorder Hypertension Asthma Social History Smoking Status: Never smoker Hx Alcohol Use: No Hx Substance Use: No Preferred Language: Nauruan Communication Ability: Effective Allergy Physician Required: No Beliefs That Will Affect Care: None marital status: / Current Living Situation: Alone Current Living Situation Comment: [employer] tuesdays How many Children do You have: 2 Feels Safe at Home: Yes Assistive Devices: Walker Allergies Allergies Allergy/AdvReac Type Severity Reaction Status Date / Time omeprazole Allergy Severe throat Verified 09/15/22 14:23 swelling alendronate sodium Allergy Unknown GI SYMPTOMS Verified 09/15/22 14:23 oxytocin Allergy Unknown Nausea and Verified 09/15/22 14:23 vomiting pioglitazone Allergy Unknown Edema BLE Verified 09/15/22 14:23 prednisone Allergy Unknown Nausea and Verified 09/15/22 14:23 vomiting risedronate sodium Allergy Unknown Headache Verified 09/15/22 14:23 and weakness sitagliptin Allergy Unknown Itching Verified 09/15/22 14:23 valproic acid Allergy Unknown Affected Verified 09/15/22 14:23 her memory divalproex sodium Allergy Unknown Verified 09/15/22 14:23 [From Depakote] fluoxetine [From Prozac] Allergy Unknown Verified 09/15/22 14:23 codeine AdvReac Unknown NAUSEA/VOMI Verified 09/15/22 14:23 TING morphine AdvReac Unknown nausea/vomi Verified 09/15/22 14:23 ting oxycodone AdvReac Unknown nausea/vomi Verified 09/15/22 14:23 ting Home Meds Home Medications Medication Instructions Recorded Confirmed acetaminophen 650 mg 650 mg PO Q8H PRN Pain 05/19/22 09/15/22 tablet,extended release (Tylenol 8 Hour) ascorbic acid (vitamin C) 1,000 mg 0 mg PO QAM 05/19/22 09/15/22 tablet (Vitamin C) cyanocobalamin (vitamin B-12) 500 0 mcg PO QAM 05/19/22 09/15/22 mcg tablet vit C 250 mg-vit E 90 mg-zinc 40 1 tab PO DAILY 05/19/22 09/15/22 mg-copper 1 [id number] capsule (PreserVision AREDS-2) Previous Rx's Medication Instructions Recorded Shower Chair #1 ea 06/03/20 Lamictal 100 mg tablet 100 mg PO BID 90 days #180 tabs 05/12/21 (lamotrigine) aspirin 81 mg tablet,delayed 81 mg PO QAM #30 tabs 06/08/22 release glipizide 5 mg tablet 5 mg PO DAILY@0730 #30 tabs 06/08/22 Zonegran 100 mg capsule 200 mg PO BID 30 days #120 caps 06/18/22 (zonisamide) Results & Data (ED) Vital Signs Vital Signs - 24 hr 09/15/22 12:51 09/15/22 13:40 09/15/22 13:40 Temperature 36.9 C Temperature Source Oral Pulse Rate 82 77 Pulse Rate [Apical] 78 Pulse Rhythm Regular Pulse Rhythm [Apical] Pulse Strength Normal Pulse Strength [Apical] Respiratory Rate 14 18 18 Respiratory Effort / Characteristics Non-Labored Respiratory Depth Normal Respiratory Pattern Regular Blood Pressure 149/64 H Blood Pressure [Left Arm] 149/64 H Blood Pressure Mean 92 Blood Pressure Mean [Left Arm] 92 Blood Pressure Position Lying Blood Pressure Position [Left Arm] Pulse Oximetry 98 98 98 Oxygen Delivery Method Room Air Room Air Sepsis Recent Fever Within 48 Hours No Sepsis New/Unexplained Change in Mental Status No Sepsis Action Taken by Nursing No Action Required 09/15/22 15:00 09/15/22 17:00 Temperature Temperature Source Pulse Rate Pulse Rate [Apical] 78 83 Pulse Rhythm Pulse Rhythm [Apical] Regular Regular Pulse Strength Pulse Strength [Apical] Normal Normal Respiratory Rate 18 18 Respiratory Effort / Characteristics Non-Labored Non-Labored Respiratory Depth Normal Normal Respiratory Pattern Regular Regular Blood Pressure Blood Pressure [Left Arm] 112/48 L 125/65 Blood Pressure Mean Blood Pressure Mean [Left Arm] 69 85 Blood Pressure Position Blood Pressure Position [Left Arm] Lying Lying Pulse Oximetry 97 96 Oxygen Delivery Method Room Air Room Air Sepsis Recent Fever Within 48 Hours Sepsis New/Unexplained Change in Mental Status Sepsis Action Taken by Alf Medications Current Medication List: was personally reviewed by me Laboratory Data Attestation: I reviewed the patient's lab results. Result diagrams: 09/15/22 13:41 09/15/22 13:41 Lab Results 09/15/22 09/15/22 09/15/22 Range/Units 13:41 13:41 13:41 WBC 7.48 (4.8-10.8) K/ul RBC 3.45 L (3.93-5.22) M/uL Hgb 11.0 L (12.0-16.0) g/dl Hct 33.3 L (34.1-44.9) % MCV 96.5 (80.0-100.0) fL MCH 31.9 (25.0-34.0) pg MCHC 33.0 (32.0-36.0) g/dL RDW Std Deviation 45.3 (36.4-46.3) fL RDW Coeff of Tony 12.8 (11.5-14.5) % Plt Count 209 (130-400) K/uL MPV 8.9 L (9.4-12.3) fL Immature Gran % (Auto) 0.3 % Neut % (Auto) 71.9 % Lymph % (Auto) 16.6 % [place] % (Auto) 8.0 % Eos % (Auto) 2.8 % Baso % (Auto) 0.4 % Neut # (Auto) 5.38 (1.4-6.5) K/uL Lymph # (Auto) 1.24 (1.2-3.4) K/uL [place] # (Auto) 0.60 (0.24-0.82) K/uL Eos # (Auto) 0.21 (0-0.50) K/uL Baso # (Auto) 0.03 (0-0.2) K/uL Immature Gran # (Auto) 0.02 (0.00-0.02) K/uL Sodium 138 (136-145) mmol/L Potassium 4.1 (3.5-5.1) mmol/L Chloride 107 (98-107) mmol/L Carbon Dioxide 24 (21-32) mmol/L Anion Gap 7 (3-11) BUN 34 H (6-23) mg/dl Creatinine 1.90 H (0.6-1.2) mg/dl Est Cr Clr Drug Dosing 24.2 ml/min Est GFR ( Amer) 29.2 ml/min Est GFR (Non-Af Amer) 25.2 ml/min BUN/Creatinine Ratio 17.9 (10-20) Glucose 140 H (70-99(Fasting)) mg/dl Calcium 8.7 (8.5-10.1) mg/dl Magnesium 2.1 (1.7-2.4) mg/dl Total Bilirubin 0.3 (0.2-1.0) mg/dl AST 27 (13-39) U/L ALT 12 (7-52) U/L Alkaline Phosphatase 169 H (34-104) U/L C-Reactive Protein (0-0.5) mg/dl Total Protein 6.4 (6.0-8.3) gm/dl Albumin 3.8 (3.4-5.0) gm/dl Globulin 2.6 (2.5-4.0) gm/dl Albumin/Globulin Ratio 1.5 (0.9-2) Procalcitonin (0-0.5) ng/ml TSH 7.428 H (0.300-4.500) uIu/ml Free T4 0.72 (0.61-1.60) ng/dl Stl C. cayetanensis PCR (NotDetected) Stool Rotavirus A PCR (NotDetected) Stl Adenov F 40/41 PCR (NotDetected) Stool Astrovirus (PCR) (NotDetected) Stool Campylobacter PCR (NotDetected) Stl C. diff Tox B Gene (Neg) Stool Cryptosporidium PCR (NotDetected) Stl E.coli Shiga Tox PCR (NotDetected) Stl Enterotoxigenic E PCR (NotDetected) Stool EPEC (PCR) (NotDetected) Stool EAEC (PCR) (NotDetected) Stl E. histolytica PCR (NotDetected) Stool Giardia Lamblia PCR (NotDetected) Stool Salmonella PCR (NotDetected) Stool Sapovirus (PCR) (NotDetected) Stl P. shigelloides PCR (NotDetected) Stl Shigella/EIEC PCR (NotDetected) St Y.enterocolitica PCR (NotDetected) Stool Vibrio (PCR) (NotDetected) Stl Vibrio cholerae PCR (NotDetected) Stl Norovirus GI/GII PCR (NotDetected) SARS-CoV-2 (PCR) (Negative) Influenza Type A (PCR) (Neg) Influenza Type B (PCR) (Neg) RSV (RT-PCR) (Neg) 09/15/22 09/15/22 09/15/22 Range/Units 13:41 13:41 14:07 WBC (4.8-10.8) K/ul RBC (3.93-5.22) M/uL Hgb (12.0-16.0) g/dl Hct (34.1-44.9) % MCV (80.0-100.0) fL MCH (25.0-34.0) pg MCHC (32.0-36.0) g/dL RDW Std Deviation (36.4-46.3) fL RDW Coeff of Tony (11.5-14.5) % Plt Count (130-400) K/uL MPV (9.4-12.3) fL Immature Gran % (Auto) % Neut % (Auto) % Lymph % (Auto) % [place] % (Auto) % Eos % (Auto) % Baso % (Auto) % Neut # (Auto) (1.4-6.5) K/uL Lymph # (Auto) (1.2-3.4) K/uL [place] # (Auto) (0.24-0.82) K/uL Eos # (Auto) (0-0.50) K/uL Baso # (Auto) (0-0.2) K/uL Immature Gran # (Auto) (0.00-0.02) K/uL Sodium (136-145) mmol/L Potassium (3.5-5.1) mmol/L Chloride (98-107) mmol/L Carbon Dioxide (21-32) mmol/L Anion Gap (3-11) BUN (6-23) mg/dl Creatinine (0.6-1.2) mg/dl Est Cr Clr Drug Dosing ml/min Est GFR ( Amer) ml/min Est GFR (Non-Af Amer) ml/min BUN/Creatinine Ratio (10-20) Glucose (70-99(Fasting)) mg/dl Calcium (8.5-10.1) mg/dl Magnesium (1.7-2.4) mg/dl Total Bilirubin (0.2-1.0) mg/dl AST (13-39) U/L ALT (7-52) U/L Alkaline Phosphatase (34-104) U/L C-Reactive Protein 0.82 H (0-0.5) mg/dl Total Protein (6.0-8.3) gm/dl Albumin (3.4-5.0) gm/dl Globulin (2.5-4.0) gm/dl Albumin/Globulin Ratio (0.9-2) Procalcitonin 0.20 (0-0.5) ng/ml TSH (0.300-4.500) uIu/ml Free T4 (0.61-1.60) ng/dl Stl C. cayetanensis PCR (NotDetected) Stool Rotavirus A PCR (NotDetected) Stl Adenov F 40/41 PCR (NotDetected) Stool Astrovirus (PCR) (NotDetected) Stool Campylobacter PCR (NotDetected) Stl C. diff Tox B Gene (Neg) Stool Cryptosporidium PCR (NotDetected) Stl E.coli Shiga Tox PCR (NotDetected) Stl Enterotoxigenic E PCR (NotDetected) Stool EPEC (PCR) (NotDetected) Stool EAEC (PCR) (NotDetected) Stl E. histolytica PCR (NotDetected) Stool Giardia Lamblia PCR (NotDetected) Stool Salmonella PCR (NotDetected) Stool Sapovirus (PCR) (NotDetected) Stl P. shigelloides PCR (NotDetected) Stl Shigella/EIEC PCR (NotDetected) St Y.enterocolitica PCR (NotDetected) Stool Vibrio (PCR) (NotDetected) Stl Vibrio cholerae PCR (NotDetected) Stl Norovirus GI/GII PCR (NotDetected) SARS-CoV-2 (PCR) POSITIVE A* (Negative) Influenza Type A (PCR) Negative (Neg) Influenza Type B (PCR) Negative (Neg) RSV (RT-PCR) Negative (Neg) 09/15/22 Range/Units 15:33 WBC (4.8-10.8) K/ul RBC (3.93-5.22) M/uL Hgb (12.0-16.0) g/dl Hct (34.1-44.9) % MCV (80.0-100.0) fL MCH (25.0-34.0) pg MCHC (32.0-36.0) g/dL RDW Std Deviation (36.4-46.3) fL RDW Coeff of Tony (11.5-14.5) % Plt Count (130-400) K/uL MPV (9.4-12.3) fL Immature Gran % (Auto) % Neut % (Auto) % Lymph % (Auto) % [place] % (Auto) % Eos % (Auto) % Baso % (Auto) % Neut # (Auto) (1.4-6.5) K/uL Lymph # (Auto) (1.2-3.4) K/uL [place] # (Auto) (0.24-0.82) K/uL Eos # (Auto) (0-0.50) K/uL Baso # (Auto) (0-0.2) K/uL Immature Gran # (Auto) (0.00-0.02) K/uL Sodium (136-145) mmol/L Potassium (3.5-5.1) mmol/L Chloride (98-107) mmol/L Carbon Dioxide (21-32) mmol/L Anion Gap (3-11) BUN (6-23) mg/dl Creatinine (0.6-1.2) mg/dl Est Cr Clr Drug Dosing ml/min Est GFR ( Amer) ml/min Est GFR (Non-Af Amer) ml/min BUN/Creatinine Ratio (10-20) Glucose (70-99(Fasting)) mg/dl Calcium (8.5-10.1) mg/dl Magnesium (1.7-2.4) mg/dl Total Bilirubin (0.2-1.0) mg/dl AST (13-39) U/L ALT (7-52) U/L Alkaline Phosphatase (34-104) U/L C-Reactive Protein (0-0.5) mg/dl Total Protein (6.0-8.3) gm/dl Albumin (3.4-5.0) gm/dl Globulin (2.5-4.0) gm/dl Albumin/Globulin Ratio (0.9-2) Procalcitonin (0-0.5) ng/ml TSH (0.300-4.500) uIu/ml Free T4 (0.61-1.60) ng/dl Stl C. cayetanensis PCR Not Detected (NotDetected) Stool Rotavirus A PCR Not Detected (NotDetected) Stl Adenov F 40/41 PCR Not Detected (NotDetected) Stool Astrovirus (PCR) Not Detected (NotDetected) Stool Campylobacter PCR Not Detected (NotDetected) Stl C. diff Tox B Gene Negative Cdiff Gene (Neg) Stool Cryptosporidium PCR Not Detected (NotDetected) Stl E.coli Shiga Tox PCR Not Detected (NotDetected) Stl Enterotoxigenic E PCR Not Detected (NotDetected) Stool EPEC (PCR) Not Detected (NotDetected) Stool EAEC (PCR) Not Detected (NotDetected) Stl E. histolytica PCR Not Detected (NotDetected) Stool Giardia Lamblia PCR Not Detected (NotDetected) Stool Salmonella PCR Not Detected (NotDetected) Stool Sapovirus (PCR) Not Detected (NotDetected) Stl P. shigelloides PCR Not Detected (NotDetected) Stl Shigella/EIEC PCR Not Detected (NotDetected) St Y.enterocolitica PCR Not Detected (NotDetected) Stool Vibrio (PCR) Not Detected (NotDetected) Stl Vibrio cholerae PCR Not Detected (NotDetected) Stl Norovirus GI/GII PCR Not Detected (NotDetected) SARS-CoV-2 (PCR) (Negative) Influenza Type A (PCR) (Neg) Influenza Type B (PCR) (Neg) RSV (RT-PCR) (Neg) Administered Medications Discontinued Medications Sodium Chloride (Nss) 500 mls @ 999 mls/hr IV .Q31M GLORIA Stop: 09/15/22 13:30 Last Infusion: 09/15/22 14:24 Dose: 0 mls/hr Documented By: Admin: 09/15/22 13:50 Dose: 999 mls/hr Documented By: HNB Sodium Chloride (Nss 1000ml) 500 mls @ 999 mls/hr IV .Q31M ONE Stop: 09/15/22 15:44 Last Infusion: 09/15/22 17:37 Dose: 0 mls/hr Documented By: Admin: 09/15/22 16:44 Dose: 999 mls/hr Documented By: [facility] Imaging Data Radiologist's Impression: Abdomen/Pelvis CT 09/15/22 14:28 CT abd pelvis wo con CLINICAL HISTORY: poss colitis or divertic TECHNIQUE: Helical axial images of the abdomen and pelvis were obtained. Automated dose lowering techniques and/or adjustment according to patient size were utilized for this exam. This exam was performed without intravenous contrast. CT DOSE: 905.07 mGycm COMPARISON: Comparison is made to CT pelvis 05/19/2022 FINDINGS: Exam is limited by patient positioning. Lower chest: Bibasilar atelectasis versus scarring is seen. Liver: Unremarkable. No focal lesions are seen. Gallbladder and biliary tree: Patient is status post cholecystectomy. No intra- or extrahepatic biliary ductal dilation. Pancreas: Unremarkable, no focal lesions. Spleen: Unremarkable. Adrenals: Unremarkable. Kidneys and ureters: No hydronephrosis is seen. No obstructive stones are noted. Atrophic appearance Bladder: Unremarkable. Reproductive organs: Unremarkable. Bowel: Diverticulosis is seen without evidence of diverticulitis. Lymph nodes Retroperitoneal: Subcentimeter lymph nodes are noted. Pelvic: Unremarkable. Mesenteric: Unremarkable. Peritoneum: Normal. Vessels: Atherosclerotic calcifications are seen. Abdominal wall: Unremarkable. Bones: Right hip arthroplasty is seen. Multilevel compression deformities are noted in the spine, favored to be chronic. Were visualized on prior pelvic CT, they are unchanged. IMPRESSION: 1. No acute abnormalities and in particular no evidence of colitis. Dive rticulosis is seen without evidence of diverticulitis. A small hiatal hernia is seen. 2. Compression deformities of the spine, likely chronic. 3. Atrophic appearing kidneys. ACT 112: Negative or not required by law. Electronically signed by: Ehsan Cates M.D. 09/15/2022 3:38 PM Chest X-Ray 09/15/22 17:28 XR chest 1V portable CLINICAL HISTORY: Covid 19 infection TECHNIQUE: Single frontal radiograph of the chest was obtained. Comparison: Comparison is made to chest radiograph 05/19/2022 FINDINGS: No lines and tubes are seen. Cardiomegaly is noted. The aortic arch is calcified. Prominence and cephalization of the vasculature is seen. Faint airspace opacities are noted. No evidence of pleural effusion or pneumothorax. Bilateral shoulder degenerative changes are seen. IMPRESSION: Cardiomegaly and mild pulmonary edema. Faint airspace opacities are seen burleson ggestive of atelectasis and/or pneumonia. ACT 112: Negative or not required by law. Electronically signed by: Ehsan Cates M.D. 09/15/2022 5:46 PM Discharge Plan Visit Data Chief Complaint: Diarrhea ED Provider: Delta Ospina Discharge Problem: Weakness, Diarrhea, COVID-19 Patient Disposition: Admitted As Inpatient Condition: Fair Forms Stand Alone Forms: [facility] [employer] Prescriptions Prescriptions: No Action (DME) Shower Chair Misc See Rx Instructions .ROUTE .MEDSUPPLY Qty: 1 0RF Rx Instructions: As directed lamotrigine [Lamictal] 100 mg tablet 100 mg PO BID 90 Days Qty: 180 1RF zonisamide [Zonegran] 100 mg capsule 200 mg PO BID 30 Days Qty: 120 2RF ascorbic acid (vitamin C) [Vitamin C] 1,000 mg Tablet 0 mg PO QAM cyanocobalamin (vitamin B-12) 500 mcg Tablet 0 mcg PO QAM acetaminophen [Tylenol 8 Hour] 650 mg Tablet Extended Release 650 mg PO Q8H PRN (Reason: Pain) PreserVision AREDS-2 250-90-40-1 mg Capsule 1 tab PO DAILY glipizide 5 mg Tablet 5 mg PO DAILY@0730 Qty: 30 0RF aspirin 81 mg Tablet,Delayed Release (Dr/Ec) 81 mg PO QAM Qty: 30 0RF Referrals Referrals: Franklyn Hood DO [Primary Care Provider] -
[2022-09-15 13:56] LABS: Basophils # (auto) 0.03 K/uL (0-0.2); Basophils % (auto) 0.4 %; Eosinophils # (auto) 0.21 K/uL (0-0.50); Eosinophils % (auto) 2.8 %; Hematocrit (blood only) 33.3 % (34.1-44.9); Immature Granulocytes # (auto) 0.02 K/uL (0.00-0.02); Immature Granulocytes % (auto) 0.3 %; Lymphocytes # (auto) 1.24 K/uL (1.2-3.4); Lymphocytes % (auto) 16.6 %; Mean Corpuscular Hemoglobin 31.9 pg (25.0-34.0); Mean Corpuscular Volume 96.5 fL (80.0-100.0); Mean Platelet Volume 8.9 fL (9.4-12.3); Neutrophils # (auto) 5.38 K/uL (1.4-6.5); Neutrophils % (auto) 71.9 %; Platelet Count 209 K/uL (130-400); RDW Coefficient of Variation 12.8 % (11.5-14.5); RDW Standard Deviation 45.3 fL (36.4-46.3); Red Blood Count 3.45 M/uL (3.93-5.22); White Blood Count 7.48 K/ul (4.8-10.8)
[2022-09-15 14:22] LABS: Albumin Globulin Ratio 1.5 (0.9-2); Albumin Level 3.8 gm/dl (3.4-5.0); BUN Creatinine Ratio 17.9 (10-20); Bilirubin,Total 0.3 mg/dl (0.2-1.0); Calcium 8.7 mg/dl (8.5-10.1); Creatinine Clr Calc Pharmacy 24.2 ml/min; Est GFR (African American) 29.2 ml/min; Est GFR (Non-African American) 25.2 ml/min; Globulin 2.6 gm/dl (2.5-4.0); Magnesium 2.1 mg/dl (1.7-2.4); Potassium 4.1 mmol/L (3.5-5.1); Total Protein 6.4 gm/dl (6.0-8.3)
[2022-09-15 14:34] LABS: Thyroid Stimulating Hormone 7.428 uIu/ml (0.300-4.500)
[2022-09-15] MEDS ORDERED: SODIUM CHLORIDE 0.9% 1000ML 500 ML IV ONE (15:14)
[2022-09-15 15:21] LABS: Influenza A virus by PCR Negative (Neg); Influenza B virus by PCR Negative (Neg); RSV by PCR Negative (Neg)
[2022-09-15 15:36] LABS: SARS CoV2 RNA(COVID-19)Cepheid POSITIVE (Negative)
--- NOTE | 2022-09-15 15:40 | CT Scan Report ---
CT abd pelvis wo con CLINICAL HISTORY: poss colitis or divertic TECHNIQUE: Helical axial images of the abdomen and pelvis were obtained. Automated dose lowering tech niques and/or adjustment according to patient size were utilized for this exam. This exam was perfor med without intravenous contrast. CT DOSE: 905.07 mGycm COMPARISON: Comparison is made to CT pelvis 05/19/2022 FINDINGS: Exam is limited by patient positioning. Lower chest: Bibasilar atelectasis versus scarring is seen. Liver: Unremarkable. No focal lesions are seen. Gallbladder and biliary tree: Patient is status post cholecystectomy. No intra- or extrahepatic bilia ry ductal dilation. Pancreas: Unremarkable, no focal lesions. Spleen: Unremarkable. Adrenals: Unremarkable. Kidneys and ureters: No hydronephrosis is seen. No obstructive stones are noted. Atrophic appearance Bladder: Unremarkable. Reproductive organs: Unremarkable. Bowel: Diverticulosis is seen without evidence of diverticulitis. Lymph nodes Retroperitoneal: Subcentimeter lymph nodes are noted. Pelvic: Unremarkable. Mesenteric: Unremarkable. Peritoneum: Normal. Vessels: Atherosclerotic calcifications are seen. Abdominal wall: Unremarkable. Bones: Right hip arthroplasty is seen. Multilevel compression deformities are noted in the spine, fav ored to be chronic. Were visualized on prior pelvic CT, they are unchanged. IMPRESSION: 1. No acute abnormalities and in particular no evidence of colitis. Diverticulosis is seen without e vidence of diverticulitis. A small hiatal hernia is seen. 2. Compression deformities of the spine, likely chronic. 3. Atrophic appearing kidneys. ACT 112: Negative or not required by law. Electronically signed by: Ehsan Cates M.D. 09/15/2022 3:38 PM
[2022-09-15 16:53] LABS: T4 Free Thyroxine 0.72 ng/dl (0.61-1.60)
--- NOTE | 2022-09-15 17:10 | Electrocardiogram Report ---
Test Reason : Blood Pressure : / mmHG Vent. 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
--- NOTE | 2022-09-15 17:48 | XRay Report ---
XR chest 1V portable CLINICAL HISTORY: Covid 19 infection TECHNIQUE: Single frontal radiograph of the chest was obtained. Comparison: Comparison is made to chest radiograph 05/19/2022 FINDINGS: No lines and tubes are seen. Cardiomegaly is noted. The aortic arch is calcified. Prominence and ceph alization of the vasculature is seen. Faint airspace opacities are noted. No evidence of pleural effu reynaldo or pneumothorax. Bilateral shoulder degenerative changes are seen. IMPRESSION: Cardiomegaly and mild pulmonary edema. Faint airspace opacities are seen suggestive of atelectasis an d/or pneumonia. ACT 112: Negative or not required by law. Electronically signed by: Ehsan Cates M.D. 09/15/2022 5:46 PM
[2022-09-15] MEDS ORDERED: LOPERAMIDE HCL 2 MG CAP PO PRN (18:00)
[2022-09-15 18:07] LABS: Adenovirus F 40/41 PCR Not Detected (NotDetected); Astrovirus PCR Not Detected (NotDetected); Campylobacter PCR Not Detected (NotDetected); Cryptosporidium PCR Not Detected (NotDetected); Cyclospora cayetanensis PCR Not Detected (NotDetected); Entamoeba histolytica PCR Not Detected (NotDetected); Enteroaggregative E.coli(EAEC) Not Detected (NotDetected); Enteropathogenic E.coli (EPEC) Not Detected (NotDetected); Enterotoxigenic E.coli (ETEC) Not Detected (NotDetected); Giardia lamblia PCR Not Detected (NotDetected); Norovirus GI/GII PCR Not Detected (NotDetected); Plesiomonas shigelloides PCR Not Detected (NotDetected); Rotavirus A PCR Not Detected (NotDetected); Salmonella PCR Not Detected (NotDetected); Sapovirus PCR Not Detected (NotDetected); Shiga-like Toxin E.coli (STEC) Not Detected (NotDetected); Shigella/Enteroinvasive E.coli Not Detected (NotDetected); Vibrio cholerae PCR Not Detected (NotDetected); Vibrio species PCR Not Detected (NotDetected); Yersinia enterocolitica PCR Not Detected (NotDetected)
[2022-09-15] MEDS ORDERED: ENOXAPARIN INJ 30 MG/0.3 ML SYR ONE (18:14)
--- NOTE | 2022-09-15 18:15 | History & Physical Report ---
Date of Service September 15, 2022 Assessment & Plan (1) Diarrhea: Plan: Profuse diarrhea since this morning with incontinence and staining of stool all over the body No abdominal pain associated with it Stool culture is pending but C. difficile toxin was negative CT of the abdomen pelvis did not show any significant findings The diarrhea could be secondary to COVID-19 virus infection Awaiting stool culture report Will be given Imodium to control diarrhea Will monitor for any electrolyte imbalance (2) COVID-19 virus infection: Plan: She is fully vaccinated and boosted No known exposure COVID-19 was positive without any symptoms of cough and no shortness of breath Chest x-ray remained unremarkable C-reactive protein is 0.82 and procalcitonin is 0.20 Will not start any medications for COVID-19 virus infection Will be in isolation (3) Epilepsy: Plan: Continue current medications (4) DM type 2 (diabetes mellitus, type 2): Plan: We will hold glyburide Start with sliding scale insulin coverage (5) Cerebrovascular disease, arteriosclerotic, post-stroke: Plan: Continue with aspirin (6) CKD (chronic kidney disease), stage III: Plan: Creatinine remains stable at 1.9 Will not give any IV fluid but advised to drink more fluid (7) Osteoarthritis: Plan: Severe osteoarthritic changes No acute arthritis DVT prophylaxis Subcu Lovenox CODE STATUS DNR/DNI Other chronic medical condition remained stable No family members to update as per patient History of Present Illness Chief Complaint: Profuse diarrhea since this morning Primary Care Provider: Franklyn Hood DO She is a 77 years old female with significant past medical history of chronic back pain, type 2 diabetes on oral medications, seizure disorder, chronic kidney disease stage IV, hypertension, history of TIA, carotid stenosis status post carotid endarterectomy and also frequent falls apparently has been found to have profuse diarrhea since this morning. She was brought in with stains of stools almost all over her body. She has been having incontinence of bowel. Denies any problem with urine. No fever and or chills and denies any abdominal pain. Distention, nausea and or vomiting. No fever and no chills and no cough or shortness of breath. No chest pain and/or palpitation. In the ER she was hemodynamically stable without any significant investigational finding except COVID 19 virus infection is positive. She is fully vaccinated. She has had antibiotic about 1 week before for UTI but her stool C. difficile was negative. Further stool studies are pending. She was admitted to [facility] telemetry unit for monitoring and continuation of care. Allergies Allergy/AdvReac Type Severity Reaction Status Date / Time omeprazole Allergy Severe throat Verified 09/15/22 14:23 swelling alendronate sodium Allergy Unknown GI SYMPTOMS Verified 09/15/22 14:23 oxytocin Allergy Unknown Nausea and Verified 09/15/22 14:23 vomiting pioglitazone Allergy Unknown Edema BLE Verified 09/15/22 14:23 prednisone Allergy Unknown Nausea and Verified 09/15/22 14:23 vomiting risedronate sodium Allergy Unknown Headache Verified 09/15/22 14:23 and weakness sitagliptin Allergy Unknown Itching Verified 09/15/22 14:23 valproic acid Allergy Unknown Affected Verified 09/15/22 14:23 her memory divalproex sodium Allergy Unknown Verified 09/15/22 14:23 [From Depakote] fluoxetine [From Prozac] Allergy Unknown Verified 09/15/22 14:23 codeine AdvReac Unknown NAUSEA/VOMI Verified 09/15/22 14:23 TING morphine AdvReac Unknown nausea/vomi Verified 09/15/22 14:23 ting oxycodone AdvReac Unknown nausea/vomi Verified 09/15/22 14:23 ting Home Medications Medication Instructions Recorded Confirmed Type Shower Chair #1 ea 06/03/20 09/15/22 Rx Lamictal 100 mg tablet 100 mg PO BID 90 days #180 tabs 05/12/21 09/15/22 Rx (lamotrigine) acetaminophen 650 mg 650 mg PO Q8H PRN Pain 05/19/22 09/15/22 History tablet,extended release (Tylenol 8 Hour) ascorbic acid (vitamin C) 1,000 mg 0 mg PO QAM 05/19/22 09/15/22 History tablet (Vitamin C) cyanocobalamin (vitamin B-12) 500 0 mcg PO QAM 05/19/22 09/15/22 History mcg tablet vit C 250 mg-vit E 90 mg-zinc 40 1 tab PO DAILY 05/19/22 09/15/22 History mg-copper 1 [id number] capsule (PreserVision AREDS-2) aspirin 81 mg tablet,delayed 81 mg PO QAM #30 tabs 06/08/22 09/15/22 Rx release glipizide 5 mg tablet 5 mg PO DAILY@0730 #30 tabs 06/08/22 09/15/22 Rx Zonegran 100 mg capsule 200 mg PO BID 30 days #120 caps 06/18/22 09/15/22 Rx (zonisamide) 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 GERD (gastroesophageal reflux disease) Hypotension Hypothyroidism Intertrochanteric fracture of right hip (07/18/14) Migraine Osteoarthritis Osteoarthritis of shoulder Osteoporosis, senile PAD (peripheral artery disease) Rhabdomyolysis Screening for skin condition Stasis dermatitis Venous stasis ulcer of right lower extremity Vertebral fracture, osteoporotic Surgical History H/O total knee replacement History of bilateral knee replacement History of left-sided carotid endarterectomy S/P cholecystectomy S/P rotator cuff repair Family History Mother Transitional cell carcinoma of bladder Diabetes Cardiac disorder Hypertension Ovarian cancer Grandmother Cancer Uncle Cancer Father Cardiac disorder Hypertension Asthma Social History Smoking Status: Never smoker Hx Alcohol Use: No Hx Substance Use: No Preferred Language: Tuvaluan Communication Ability: Effective Bacon Skinner Required: No Beliefs That Will Affect Care: None marital status: / Current Living Situation: Alone 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 How many Children do You have: 2 Feels Safe at Home: Yes Assistive Devices: Walker Review of Systems Review of Systems: All systems reviewed and are unremarkable except as noted in H&P Physical Exam Physical Exam: Lying in bed comfortably Constitutional: well developed, well nourished, + ill appearing and average body habitus Eyes: PERRL, conjunctivae normal, anicteric sclerae ENMT: external ear and nose normal, oropharynx normal Neck: trachea midline, no thyromegaly Respiratory: no respiratory distress Auscultation: + diminished lung sounds and + crackles (Minimal crackles at the bases) Cardiovascular: Rate/Rhythm: regular rate and regular rhythm; not tachycardic Heart Sounds: normal S1 and normal S2; no murmur Extremities: no edema Gastrointestinal (Abdomen): Inspection/Auscultation: + abdomen distended and normal bowel sounds Percussion/Palpation: abdomen soft; abdomen nontender Musculoskeletal: Severe osteoarthritic changes involving the hands and feet but no acute arthritis in any joint Neurologic: normal touch/pain/proprioception and moves all extremities; no focal motor deficits Psychiatric: A+Ox3, euthymic affect Lymphatic: no cervical or axillary lymphadenopathy Results & Data Results & Data ([facility]) Vital Signs (Past 12 Hours) Vital Signs Temp Pulse Pulse Resp BP BP Pulse Ox 09/15/22 17:00 83 18 125/65 96 09/15/22 15:00 78 18 112/48 L 97 09/15/22 13:40 77 18 98 09/15/22 13:40 78 18 149/64 H 98 09/15/22 12:51 36.9 C 82 14 149/64 H 98 O2 Del Method 09/15/22 17:00 Room Air 09/15/22 15:00 Room Air 09/15/22 13:40 09/15/22 13:40 Room Air 09/15/22 12:51 Room Air Laboratory Results Short CBC 09/15/22 Range/Units 13:41 WBC 7.48 (4.8-10.8) K/ul Hgb 11.0 L (12.0-16.0) g/dl Hct 33.3 L (34.1-44.9) % Plt Count 209 (130-400) K/uL BMP 09/15/22 13:41 Sodium 138 Potassium 4.1 Chloride 107 Carbon Dioxide 24 BUN 34 H Creatinine 1.90 H Glucose 140 H Calcium 8.7 Liver Function 09/15/22 Range/Units 13:41 Total Bilirubin 0.3 (0.2-1.0) mg/dl AST 27 (13-39) U/L ALT 12 (7-52) U/L Alkaline Phosphatase 169 H (34-104) U/L Albumin 3.8 (3.4-5.0) gm/dl Medications Administered Current Inpatient Medications Enoxaparin Sodium (Enoxaparin Inj 30 Mg/0.3 Ml Syr) 30 mg SQ Q24H GLORIA Stop: 10/15/22 17:59 Insulin Aspart (Insulin Aspart Per Unit) 0 units SC ACHS GLORIA Stop: 10/15/22 20:59 Loperamide HCl (Loperamide Hcl 2 Mg Cap) 2 mg PO Q3H PRN PRN Reason: Diarrhea Stop: 10/15/22 17:59 Code Status & VTE Plan VTE Prophylaxis Plan VTE Prophylaxis will be ordered: Yes (1) CKD (chronic kidney disease), stage III Chronic kidney disease stage 3 subtype: unspecified whether 3a or 3b Qualified Code(s): N18.30 - Chronic kidney disease, stage 3 unspecified
[2022-09-15] MEDS ORDERED: GLUCOSE 40% GEL 15 GM TUBE PO PRN (21:15)
[2022-09-15] MEDS ORDERED: GLUCAGON FOR INJ 1 MG VIAL IM PRN (21:15)
[2022-09-15] MEDS ORDERED: DEXTROSE 50% 50 ML SYRINGE IV PRN (21:15)
[2022-09-15] MEDS ORDERED: CARBOHYDRATES FOR HYPOGLYCEMIA PO PRN (21:15)
[2022-09-15] MEDS ORDERED: GLUCOSE 10 TAB/TUBE PO PRN (21:15)
[2022-09-15] MEDS: ENOXAPARIN INJ 30 MG/0.3 ML SYR SQ SCH (22:22)
[2022-09-15] MEDS: INSULIN ASPART PER UNIT SC SCH (22:22)
[2022-09-15] MEDS: lamoTRIgine 100 MG TAB PO SCH (22:23)
[2022-09-15] MEDS: ZONISAMIDE 100 MG CAPSULE PO SCH (22:57)
[2022-09-15 23:30] LABS: Appearance Urine Cloudy (Clear); Bacteria Urine Automated 1+ (Negative); Bilirubin Urine Negative (Negative); Blood Urine Negative (Negative); Cast Urine Automated 0 /lpf (0-5); Color Urine Yellow; Epithelial Cell Urine Auto >30 /lpf (0-5); Glucose Urine UA Negative (Negative); Ketones Urine Negative (Negative); Leukocyte Esterase Urine Trace (Negative); Nitrite Urine Negative (Negative); Protein Urine Trace (Negative); Specific Gravity Urine 1.012 (1.000-1.030); Urobilinogen Urine Negative (Negative); pH Urine 5.5 (4.5-7.5)
[2022-09-16 00:06] LABS: RBC Urine Automated 0-4 /hpf (0-4)
[2022-09-16] MEDS: INSULIN ASPART PER UNIT SC SCH ×4 (08:12→19:55)
[2022-09-16 08:13] LABS: Basophils # (auto) 0.03 K/uL (0-0.2); Basophils % (auto) 0.4 %; Eosinophils # (auto) 0.21 K/uL (0-0.50); Immature Granulocytes # (auto) 0.02 K/uL (0.00-0.02); Immature Granulocytes % (auto) 0.3 %; Lymphocytes # (auto) 1.62 K/uL (1.2-3.4); Lymphocytes % (auto) 23.5 %; Mean Corpuscular Hemoglobin 32.7 pg (25.0-34.0); Mean Corpuscular Hgb Conc 33.3 g/dL (32.0-36.0); Mean Corpuscular Volume 98.2 fL (80.0-100.0); Mean Platelet Volume 9.3 fL (9.4-12.3); Monocytes # (auto) 0.57 K/uL (0.24-0.82); Monocytes % (auto) 8.3 %; Neutrophils # (auto) 4.45 K/uL (1.4-6.5); Neutrophils % (auto) 64.5 %; Platelet Count 207 K/uL (130-400); RDW Coefficient of Variation 12.8 % (11.5-14.5); Red Blood Count 3.36 M/uL (3.93-5.22)
[2022-09-16] MEDS: ASPIRIN 81 MG ECTAB PO SCH (08:23)
[2022-09-16] MEDS: ZONISAMIDE 100 MG CAPSULE PO SCH ×2 (08:23→19:56)
[2022-09-16] MEDS: CYANOCOBALAMIN (B-12) 500 MCG TABLET PO SCH (08:23)
[2022-09-16] MEDS: lamoTRIgine 100 MG TAB PO SCH ×2 (08:23→19:56)
[2022-09-16] MEDS: CEROVITE ADV FORMULA TAB PO SCH (08:30)
[2022-09-16 08:36] LABS: Albumin Globulin Ratio 1.5 (0.9-2); Albumin Level 3.5 gm/dl (3.4-5.0); BUN Creatinine Ratio 16.1 (10-20); Bilirubin,Total 0.4 mg/dl (0.2-1.0); Calcium 8.5 mg/dl (8.5-10.1); Creatinine Clr Calc Pharmacy 25.4 ml/min; Est GFR (African American) 31.1 ml/min; Est GFR (Non-African American) 26.9 ml/min; Globulin 2.4 gm/dl (2.5-4.0); Potassium 3.9 mmol/L (3.5-5.1); Total Protein 5.9 gm/dl (6.0-8.3)
[2022-09-16] MEDS: ACETAMINOPHEN 325 MG TAB PO PRN (10:31)
--- NOTE | 2022-09-16 12:47 | Electrocardiogram Report ---
Test Reason : Blood Pressure : / mmHG Vent. Rate : 076 BPM Atrial Rate : 076 BPM P-R Int : 164 ms QRS Dur : 098 ms QT Int : 378 ms P-R-T Axes : 039 -49 -34 degrees QTc Int : 425 ms Normal sinus rhythm with sinus arrhythmia Left anterior fascicular block Anterior infarct (cited on or before 20-MAY-2022)vs LAFB Abnormal ECG When compared with ECG of 15-SEP-2022 13:18, No significant change was found Confirmed by Thomas Chan ([id number]) on 09/16/2022 12:47:23 PM Referred By: REFERRED SELF Confirmed By:Thomas Chan
--- NOTE | 2022-09-16 15:28 | Hospitalist Progress Note ---
Date of Service September 16, 2022 Assessment & Plan (1) Diarrhea: Plan: Possible COVID-related diarrhea Profuse diarrhea since this morning with incontinence and staining of stool all over the body No abdominal pain associated with it Stool culture is pending but C. difficile toxin was negative CT of the abdomen pelvis did not show any significant findings The diarrhea could be secondary to COVID-19 virus infection Awaiting stool culture report Will be given Imodium to control diarrhea Will monitor for any electrolyte imbalance 09/16 Stool panel: Negative Diarrhea improving (2) COVID-19 virus infection: Plan: She is fully vaccinated and boosted No known exposure COVID-19 was positive without any symptoms of cough and no shortness of breath Chest x-ray remained unremarkable C-reactive protein is 0.82 and procalcitonin is 0.20 09/16 CT chest: Possible infiltrates, bilateral bases Given patient's age, comorbidities, presentation, offered remdesivir therapy Discussed with patient including benefits and risks, Patient verbalized understanding and agreement and would like to proceed with remdesivir therapy Monitor function liver function daily (3) Epilepsy: Plan: Continue current medications (4) DM type 2 (diabetes mellitus, type 2): Plan: We will hold glyburide sliding scale insulin coverage (5) CKD (chronic kidney disease) stage 4, GFR 15-29 ml/min: Plan: Creatinine at baseline Will start gentle IV fluids x12 (6) Cerebrovascular disease, arteriosclerotic, post-stroke: Plan: Continue with aspirin (7) Osteoarthritis: Plan: Severe osteoarthritic changes No acute arthritis DVT prophylaxis Subcu Lovenox CODE STATUS DNR/DNI Disposition PT OT evaluation Likely to be discharged home when medically stable Admission and Anticipated Discharge Date Admission Date: September 15, 2022 Subjective Follow-up for COVID-19 infection, diarrhea, etc. Seen resting in bed, comfortable, not in distress States she feels improved today Diarrhea has resolved No abdominal pain, nausea Appetite is good Denies cough, shortness of breath, chest pain No other symptoms Review of Systems Review of Systems: all noted and negative except for above Physical Exam Physical Exam: General- oriented x 3, not in distress, speaks in sentences with no effort or accessory muscle use Mouth-dry oral mucosa Eyes- anicteric Neck- no JVD Lungs- clear breath sounds bilaterally, no rales/wheezes Heart- normal rate, regular rhythm; no murmurs Abdomen- normal bowel sounds, nondistended, soft, nontender Extremities- no pretibial edema, no calf tenderness Neuro- alert, oriented x 3; no gross focal neurologic deficits Skin- warm & dry Results & Data Results & Data ([facility]) Vital Signs (Past 12 Hours) Vital Signs Temp Pulse Pulse Pulse Resp BP Pulse Ox 09/16/22 15:22 72 09/16/22 12:07 36.9 C 71 20 142/62 H 96 09/16/22 08:15 36.4 C L 79 20 136/75 96 09/16/22 07:24 77 09/16/22 03:43 36.7 C 83 18 135/67 95 O2 Del Method 09/16/22 15:22 09/16/22 12:07 Room Air 09/16/22 08:15 Room Air 09/16/22 07:24 09/16/22 03:43 Room Air all noted and reviewed including below
[2022-09-16] MEDS ORDERED: REMDESIVIR 200 MG in SODIUM CHLORIDE 0.9% 210 ML IV ONE (15:45)
[2022-09-16] MEDS: SODIUM CHLORIDE 0.9% 1000ML 1,000 ML IV SCH (17:31)
[2022-09-16] MEDS: ENOXAPARIN INJ 30 MG/0.3 ML SYR SQ SCH (19:55)
[2022-09-17] MEDS: ACETAMINOPHEN 325 MG TAB PO PRN ×2 (00:44→23:47)
[2022-09-17] MEDS ORDERED: HYDROmorphone INJ 0.5 MG/0.5 ML SYR IV PRN (02:23)
[2022-09-17] MEDS: SODIUM CHLORIDE 0.9% 1000ML 1,000 ML IV SCH ×2 (06:08→17:29)
[2022-09-17 07:06] LABS: Albumin Globulin Ratio 1.4 (0.9-2); Albumin Level 3.5 gm/dl (3.4-5.0); BUN Creatinine Ratio 13.5 (10-20); Bilirubin,Total 0.2 mg/dl (0.2-1.0); Calcium 8.6 mg/dl (8.5-10.1); Creatinine Clr Calc Pharmacy 24.7 ml/min; Est GFR (African American) 30.1 ml/min; Globulin 2.5 gm/dl (2.5-4.0); Potassium 4.1 mmol/L (3.5-5.1)
[2022-09-17] MEDS: CEROVITE ADV FORMULA TAB PO SCH (08:42)
[2022-09-17] MEDS: ZONISAMIDE 100 MG CAPSULE PO SCH ×2 (08:42→21:04)
[2022-09-17] MEDS: INSULIN ASPART PER UNIT SC SCH ×4 (08:43→21:18)
[2022-09-17] MEDS: CYANOCOBALAMIN (B-12) 500 MCG TABLET PO SCH (08:43)
[2022-09-17] MEDS: ASPIRIN 81 MG ECTAB PO SCH (08:43)
[2022-09-17] MEDS: lamoTRIgine 100 MG TAB PO SCH ×2 (08:43→21:03)
[2022-09-17 09:26] LABS: Estimated Average Glucose 160 mg/dl; Hemoglobin A1C 7.2 % (4.5-5.6)
[2022-09-17] MEDS: REMDESIVIR 100 MG in SODIUM CHLORIDE 0.9% 230 ML IV SCH (11:08)
--- NOTE | 2022-09-17 17:38 | Hospitalist Progress Note ---
Date of Service September 17, 2022 Assessment & Plan (1) Diarrhea: Plan: Possible COVID-related diarrhea Profuse diarrhea since this morning with incontinence and staining of stool all over the body No abdominal pain associated with it Stool culture is pending but C. difficile toxin was negative CT of the abdomen pelvis did not show any significant findings The diarrhea could be secondary to COVID-19 virus infection Awaiting stool culture report Will be given Imodium to control diarrhea Will monitor for any electrolyte imbalance 09/17 Stool panel: Negative Diarrhea resolved (2) COVID-19 virus infection: Plan: She is fully vaccinated and boosted No known exposure COVID-19 was positive without any symptoms of cough and no shortness of breath Chest x-ray remained unremarkable C-reactive protein is 0.82 and procalcitonin is 0.20 09/16 CT chest: Possible infiltrates, bilateral bases Given patient's age, comorbidities, presentation, offered remdesivir therapy Discussed with patient including benefits and risks, Patient verbalized understanding and agreement and would like to proceed with remdesivir therapy Monitor function liver function daily 09/17 Respiratory status stable O2 sat mostly 96% on room air Kidney and liver function okay Continue remdesivir day #2 PT and OT evaluation tomorrow (3) Epilepsy: Plan: Continue current medications (4) DM type 2 (diabetes mellitus, type 2): Plan: We will hold glyburide sliding scale insulin coverage (5) CKD (chronic kidney disease) stage 4, GFR 15-29 ml/min: Plan: Creatinine at baseline Given gentle IV fluids (6) Cerebrovascular disease, arteriosclerotic, post-stroke: Plan: Continue with aspirin (7) Osteoarthritis: Plan: Severe osteoarthritic changes No acute arthritis DVT prophylaxis Subcu Lovenox CODE STATUS DNR/DNI Disposition PT OT evaluation Likely to be discharged home when medically stable Admission and Anticipated Discharge Date Admission Date: September 15, 2022 Subjective Follow-up for diarrhea, COVID-19 infection, etc. Seen resting in bed, watching TV, comfortable, not in distress States she feels fine today overall Diarrhea has resolved No abdominal pain No chest pain, shortness of breath, cough, leg pain No other symptoms Review of Systems Review of Systems: all noted and negative except for above Physical Exam Physical Exam: General- oriented x 2, not in distress, speaks in sentences with no effort or accessory muscle use Eyes- anicteric Neck- no JVD Lungs-faint crackles left base, clear on the right, no wheeze Heart- normal rate, regular rhythm; no murmurs Abdomen- normal bowel sounds, nondistended, soft, nontender Extremities- no pretibial edema, no calf tenderness Neuro- alert, oriented x 3; no gross focal neurologic deficits Skin- warm & dry Results & Data Results & Data ([facility]) Vital Signs (Past 12 Hours) Vital Signs Temp Pulse Pulse Resp BP BP Pulse Ox 09/17/22 15:27 66 09/17/22 12:10 36.4 C L 70 19 154/72 H 96 09/17/22 08:15 36.6 C 68 18 142/70 H 92 09/17/22 07:14 66 O2 Del Method 09/17/22 15:27 09/17/22 12:10 Room Air 09/17/22 08:15 Room Air 09/17/22 07:14 all noted and reviewed including below
[2022-09-17] MEDS: ENOXAPARIN INJ 30 MG/0.3 ML SYR SQ SCH (21:04)
[2022-09-18] MEDS ORDERED: LORATADINE 10 MG TAB PO ONE (05:30)
[2022-09-18] MEDS: SODIUM CHLORIDE 0.9% 1000ML 1,000 ML IV SCH ×2 (07:18→20:33)
[2022-09-18 08:14] LABS: Albumin Globulin Ratio 1.6 (0.9-2); Albumin Level 3.5 gm/dl (3.4-5.0); BUN Creatinine Ratio 13.4 (10-20); Bilirubin,Total 0.3 mg/dl (0.2-1.0); Calcium 8.3 mg/dl (8.5-10.1); Creatinine Clr Calc Pharmacy 26.3 ml/min; Est GFR (African American) 32.9 ml/min; Est GFR (Non-African American) 28.4 ml/min; Globulin 2.2 gm/dl (2.5-4.0); Total Protein 5.7 gm/dl (6.0-8.3)
[2022-09-18] MEDS: INSULIN ASPART PER UNIT SC SCH ×4 (08:42→21:07)
[2022-09-18] MEDS: lamoTRIgine 100 MG TAB PO SCH ×2 (08:55→20:33)
[2022-09-18] MEDS: ASPIRIN 81 MG ECTAB PO SCH (08:55)
[2022-09-18] MEDS: CEROVITE ADV FORMULA TAB PO SCH (08:55)
[2022-09-18] MEDS: ZONISAMIDE 100 MG CAPSULE PO SCH ×2 (08:55→20:34)
[2022-09-18] MEDS: CYANOCOBALAMIN (B-12) 500 MCG TABLET PO SCH (08:55)
[2022-09-18] MEDS: REMDESIVIR 100 MG in SODIUM CHLORIDE 0.9% 230 ML IV SCH (12:30)
--- NOTE | 2022-09-18 16:36 | Hospitalist Progress Note ---
Date of Service September 18, 2022 Assessment & Plan (1) Diarrhea: Plan: Possible COVID-related diarrhea Profuse diarrhea since this morning with incontinence and staining of stool all over the body No abdominal pain associated with it Stool culture is pending but C. difficile toxin was negative CT of the abdomen pelvis did not show any significant findings The diarrhea could be secondary to COVID-19 virus infection Awaiting stool culture report Will be given Imodium to control diarrhea Will monitor for any electrolyte imbalance 09/18 Stool panel: Negative Diarrhea resolved (2) COVID-19 virus infection: Plan: She is fully vaccinated and boosted No known exposure COVID-19 was positive without any symptoms of cough and no shortness of breath Chest x-ray remained unremarkable C-reactive protein is 0.82 and procalcitonin is 0.20 09/16 CT chest: Possible infiltrates, bilateral bases Given patient's age, comorbidities, presentation, offered remdesivir therapy Discussed with patient including benefits and risks, Patient verbalized understanding and agreement and would like to proceed with remdesivir therapy Monitor function liver function daily 09/17 Respiratory status stable O2 sat mostly 96% on room air Kidney and liver function okay Continue remdesivir day #2 PT and OT evaluation tomorrow Remains stable O2 sats more 96% on room air Renal function, liver function stable Continue remdesivir day #3 Encouraged to participate with PT and OT Patient agrees Check Doppler ultrasound of the right lower extremity to rule out DVT (3) Epilepsy: Plan: Continue current medications (4) DM type 2 (diabetes mellitus, type 2): Plan: We will hold glyburide sliding scale insulin coverage (5) CKD (chronic kidney disease) stage 4, GFR 15-29 ml/min: Plan: Creatinine at baseline Given gentle IV fluids was given (6) Cerebrovascular disease, arteriosclerotic, post-stroke: Plan: Continue with aspirin (7) Osteoarthritis: Plan: Severe osteoarthritic changes No acute arthritis DVT prophylaxis Subcu Lovenox CODE STATUS DNR/DNI Disposition PT OT evaluation Likely to be discharged home when medically stable Admission and Anticipated Discharge Date Admission Date: September 15, 2022 Subjective Follow-up for COVID-19 infection, diarrhea, etc. Per RN, patient declining PT and OT earlier today, was irritable Seen resting in bed, comfortable, not in distress, watching TV Oriented x3, answers all questions appropriate Calm, cooperative States she feels fine overall Denies cough, shortness of breath, chest Was having generalized itching last night, improved Having some right lower extremity discomfort No other symptom Review of Systems Review of Systems: all noted and negative except for above Physical Exam Physical Exam: General- oriented x 3, not in distress, speaks in sentences with no effort or accessory muscle use Eyes- anicteric Neck- no JVD Lungs- clear breath sounds bilaterally, no rales/wheezes Heart- normal rate, regular rhythm; no murmurs Abdomen- normal bowel sounds, nondistended, soft, nontender Extremities- no pretibial edema, no calf tenderness Right lower extremity-no edema but lower half has mild erythema, mild warmth Neuro- alert, oriented x 3; no gross focal neurologic deficits Skin- warm & dry Results & Data Results & Data ([facility]) Vital Signs (Past 12 Hours) Vital Signs Temp Pulse Pulse Resp BP Pulse Ox O2 Del Method 09/18/22 15:10 69 09/18/22 11:48 36.6 C 76 20 149/92 H 96 Room Air 09/18/22 10:23 Room Air 09/18/22 08:03 36.5 C 74 20 152/69 H 96 Room Air 09/18/22 07:45 72 all noted and reviewed including below
--- NOTE | 2022-09-18 18:05 | Ultrasound Report ---
RIGHT LOWER EXTREMITY VENOUS DOPPLER CLINICAL HISTORY: leg pain, erythema, r/o DVT COMPARISON STUDY: Bilateral lower extremity venous Doppler ultrasound May 22, 2022. TECHNIQUE: Sonography of the deep venous system of the right lower extremity was performed. Compress ion and augmentation were evaluated. FINDINGS: The right common femoral, superficial femoral and popliteal veins were compressible. Augme ntation was normal. Flow was shown within the deep calf vessels. IMPRESSION: No evidence of deep venous thrombus within the right lower extremity. ACT 112: Negative or not required by law. Electronically signed by: Aakash Jaramillo M.D. 09/18/2022 6:04 PM
[2022-09-18] MEDS: ENOXAPARIN INJ 30 MG/0.3 ML SYR SQ SCH ×2 (20:32→21:11)
[2022-09-18] MEDS: ACETAMINOPHEN 325 MG TAB PO PRN (20:34)
[2022-09-18] MEDS: MELATONIN 3 MG TAB PO PRN (20:34)
[2022-09-19] MEDS: INSULIN ASPART PER UNIT SC SCH ×4 (08:13→20:26)
[2022-09-19] MEDS: ZONISAMIDE 100 MG CAPSULE PO SCH ×2 (08:19→20:29)
[2022-09-19] MEDS: CYANOCOBALAMIN (B-12) 500 MCG TABLET PO SCH (08:19)
[2022-09-19] MEDS: CEROVITE ADV FORMULA TAB PO SCH (08:19)
[2022-09-19] MEDS: lamoTRIgine 100 MG TAB PO SCH ×2 (08:19→20:29)
[2022-09-19] MEDS: ASPIRIN 81 MG ECTAB PO SCH (08:19)
[2022-09-19] MEDS: REMDESIVIR 100 MG in SODIUM CHLORIDE 0.9% 230 ML IV SCH (12:07)
[2022-09-19] MEDS ORDERED: hydrALAZINE HCL 20 MG/ML VIAL IV PRN (16:29)
--- NOTE | 2022-09-19 16:32 | Hospitalist Progress Note ---
Date of Service September 19, 2022 Assessment & Plan (1) Diarrhea: Plan: Possible COVID-related diarrhea Profuse diarrhea since this morning with incontinence and staining of stool all over the body No abdominal pain associated with it Stool culture is pending but C. difficile toxin was negative CT of the abdomen pelvis did not show any significant findings The diarrhea could be secondary to COVID-19 virus infection Awaiting stool culture report Will be given Imodium to control diarrhea Will monitor for any electrolyte imbalance 09/19 Stool panel: Negative Diarrhea resolved (2) COVID-19 virus infection: Plan: She is fully vaccinated and boosted No known exposure COVID-19 was positive without any symptoms of cough and no shortness of breath Chest x-ray remained unremarkable C-reactive protein is 0.82 and procalcitonin is 0.20 09/16 CT chest: Possible infiltrates, bilateral bases Given patient's age, comorbidities, presentation, offered remdesivir therapy Discussed with patient including benefits and risks, Patient verbalized understanding and agreement and would like to proceed with remdesivir therapy Monitor function liver function daily 09/17 Respiratory status stable O2 sat mostly 96% on room air Kidney and liver function okay Continue remdesivir day #2 PT and OT evaluation tomorrow 09/18 Remains stable O2 sats more 96% on room air Renal function, liver function stable Continue remdesivir day #3 Encouraged to participate with PT and OT Patient agrees Check Doppler ultrasound of the right lower extremity to rule out DVT 09/19 Stable overall Continue remdesivir day #4 PT OT recommending rehab, family preservation caseworker on board, referrals to [facility] being made Doppler ultrasound right lower extremity: Negative for DVT (3) Epilepsy: Plan: Continue current medications (4) DM type 2 (diabetes mellitus, type 2): Plan: We will hold glyburide sliding scale insulin coverage (5) CKD (chronic kidney disease) stage 4, GFR 15-29 ml/min: Plan: Creatinine at baseline Given gentle IV fluids was given (6) Cerebrovascular disease, arteriosclerotic, post-stroke: Plan: Continue with aspirin (7) Osteoarthritis: Plan: Severe osteoarthritic changes No acute arthritis DVT prophylaxis Subcu Lovenox CODE STATUS DNR/DNI Disposition PT OT evaluation [facility] when accepted Admission and Anticipated Discharge Date Admission Date: September 15, 2022 Subjective Follow-up for diarrhea, COVID-19 infection, etc. Seen sitting up in bedside chair, comfortable, watching TV, in good spirits States she feels fine overall No shortness of breath, cough, chest pain, leg pain Itching has resolved No other symptoms Review of Systems Review of Systems: all noted and negative except for above Physical Exam Physical Exam: General- oriented x 3, not in distress, speaks in sentences with no effort or accessory muscle use Eyes- anicteric Neck- no JVD Lungs- clear breath sounds bilaterally, no crackles, no wheezing bilaterally Heart- normal rate, regular rhythm; no murmurs Abdomen- normal bowel sounds, nondistended, soft, nontender Extremities- no pretibial edema, no calf tenderness Very minimal erythema on the right lower extremity distal half, no warmth/tenderness Neuro- alert, oriented x 3; no gross focal neurologic deficits Skin- warm & dry Results & Data Results & Data ([facility]) Vital Signs (Past 12 Hours) Vital Signs Temp Pulse Pulse Pulse Resp BP BP 09/19/22 15:46 74 09/19/22 15:36 83 09/19/22 15:12 36.4 C L 80 20 148/75 H 09/19/22 12:04 36.4 C L 78 20 165/74 H 09/19/22 09:44 09/19/22 07:59 36.4 C L 76 20 162/81 H 09/19/22 06:55 77 Pulse Ox O2 Del Method 09/19/22 15:46 95 Room Air 09/19/22 15:36 09/19/22 15:12 91 Room Air 09/19/22 12:04 97 Room Air 09/19/22 09:44 Room Air 09/19/22 07:59 97 Room Air 09/19/22 06:55 all noted and reviewed including below
[2022-09-19] MEDS: ACETAMINOPHEN 325 MG TAB PO PRN (20:28)
[2022-09-19] MEDS: MELATONIN 3 MG TAB PO PRN (20:29)
[2022-09-19] MEDS: ENOXAPARIN INJ 30 MG/0.3 ML SYR SQ SCH (20:30)
[2022-09-20] MEDS: HYDROCODONE/ACETAMOPHEN 5/325MG TAB PO PRN (02:55)
[2022-09-20] MEDS: INSULIN ASPART PER UNIT SC SCH ×4 (09:02→23:09)
[2022-09-20] MEDS: ASPIRIN 81 MG ECTAB PO SCH (09:04)
[2022-09-20] MEDS: lamoTRIgine 100 MG TAB PO SCH ×2 (09:04→22:38)
[2022-09-20] MEDS: ZONISAMIDE 100 MG CAPSULE PO SCH ×2 (09:04→22:38)
[2022-09-20] MEDS: CEROVITE ADV FORMULA TAB PO SCH (09:04)
[2022-09-20] MEDS: CYANOCOBALAMIN (B-12) 500 MCG TABLET PO SCH (09:04)
[2022-09-20] MEDS: REMDESIVIR 100 MG in SODIUM CHLORIDE 0.9% 230 ML IV SCH (12:16)
--- NOTE | 2022-09-20 19:11 | Hospitalist Progress Note ---
Date of Service September 20, 2022 Assessment & Plan (1) Diarrhea: Plan: Possible COVID-related diarrhea Profuse diarrhea since this morning with incontinence and staining of stool all over the body No abdominal pain associated with it Stool culture is pending but C. difficile toxin was negative CT of the abdomen pelvis did not show any significant findings The diarrhea could be secondary to COVID-19 virus infection Awaiting stool culture report Will be given Imodium to control diarrhea Will monitor for any electrolyte imbalance 09/19 Stool panel: Negative Diarrhea resolved (2) COVID-19 virus infection: Plan: She is fully vaccinated and boosted No known exposure COVID-19 was positive without any symptoms of cough and no shortness of breath Chest x-ray remained unremarkable C-reactive protein is 0.82 and procalcitonin is 0.20 09/16 CT chest: Possible infiltrates, bilateral bases Given patient's age, comorbidities, presentation, offered remdesivir therapy Discussed with patient including benefits and risks, Patient verbalized understanding and agreement and would like to proceed with remdesivir therapy Monitor function liver function daily 09/17 Respiratory status stable O2 sat mostly 96% on room air Kidney and liver function okay Continue remdesivir day #2 PT and OT evaluation tomorrow 09/18 Remains stable O2 sats more 96% on room air Renal function, liver function stable Continue remdesivir day #3 Encouraged to participate with PT and OT Patient agrees Check Doppler ultrasound of the right lower extremity to rule out DVT 09/19 Stable overall Continue remdesivir day #4 PT OT recommending rehab, medical case manager on board, referrals to [facility] being made Doppler ultrasound right lower extremity: Negative for DVT (3) Epilepsy: Plan: Continue current medications (4) DM type 2 (diabetes mellitus, type 2): Plan: We will hold glyburide sliding scale insulin coverage (5) CKD (chronic kidney disease) stage 4, GFR 15-29 ml/min: Plan: Creatinine at baseline Given gentle IV fluids was given (6) Cerebrovascular disease, arteriosclerotic, post-stroke: Plan: Continue with aspirin (7) Osteoarthritis: Plan: Severe osteoarthritic changes No acute arthritis DVT prophylaxis Subcu Lovenox CODE STATUS DNR/DNI Disposition PT OT evaluation Transition to [facility] when accepted Admission and Anticipated Discharge Date Admission Date: September 15, 2022 Results & Data Results & Data ([facility]) Vital Signs (Past 12 Hours) Vital Signs Temp Pulse Pulse Resp BP BP Pulse Ox 09/20/22 18:45 36.4 C L 71 18 125/76 100 09/20/22 15:37 69 09/20/22 15:30 36.4 C L 70 18 129/62 99 09/20/22 10:26 36.3 C L 67 20 159/77 H 98 09/20/22 09:20 09/20/22 08:02 36.4 C L 67 18 146/74 H 98 09/20/22 07:30 74 O2 Del Method 09/20/22 18:45 Room Air 09/20/22 15:37 09/20/22 15:30 Room Air 09/20/22 10:26 Room Air 09/20/22 09:20 Room Air 09/20/22 08:02 Room Air 09/20/22 07:30
[2022-09-20] MEDS: ENOXAPARIN INJ 30 MG/0.3 ML SYR SQ SCH (22:37)
[2022-09-20] MEDS: ACETAMINOPHEN 325 MG TAB PO PRN (23:15)
[2022-09-21] MEDS: HYDROCODONE/ACETAMOPHEN 5/325MG TAB PO PRN (00:02)
[2022-09-21] MEDS: MELATONIN 3 MG TAB PO PRN (00:02)
[2022-09-21] MEDS: INSULIN ASPART PER UNIT SC SCH ×2 (08:36→12:02)
[2022-09-21] MEDS: CEROVITE ADV FORMULA TAB PO SCH (08:36)
[2022-09-21] MEDS: ZONISAMIDE 100 MG CAPSULE PO SCH (08:48)
[2022-09-21] MEDS: lamoTRIgine 100 MG TAB PO SCH (08:49)
[2022-09-21] MEDS: CYANOCOBALAMIN (B-12) 500 MCG TABLET PO SCH (08:49)
[2022-09-21] MEDS: ASPIRIN 81 MG ECTAB PO SCH (08:49)
--- NOTE | 2022-09-21 12:44 | Hospitalist Progress Note ---
Date of Service September 21, 2022 Assessment & Plan (1) Diarrhea: Plan: Possible COVID-related diarrhea Profuse diarrhea since this morning with incontinence and staining of stool all over the body No abdominal pain associated with it Stool culture is pending but C. difficile toxin was negative CT of the abdomen pelvis did not show any significant findings The diarrhea could be secondary to COVID-19 virus infection Awaiting stool culture report Will be given Imodium to control diarrhea Will monitor for any electrolyte imbalance 09/21 Stool panel: Negative Diarrhea resolved (2) COVID-19 virus infection: Plan: She is fully vaccinated and boosted No known exposure COVID-19 was positive without any symptoms of cough and no shortness of breath Chest x-ray remained unremarkable C-reactive protein is 0.82 and procalcitonin is 0.20 09/16 CT chest: Possible infiltrates, bilateral bases Given patient's age, comorbidities, presentation, offered remdesivir therapy Discussed with patient including benefits and risks, Patient verbalized understanding and agreement and would like to proceed with remdesivir therapy Monitor function liver function daily 09/17 Respiratory status stable O2 sat mostly 96% on room air Kidney and liver function okay Continue remdesivir day #2 PT and OT evaluation tomorrow 09/18 Remains stable O2 sats more 96% on room air Renal function, liver function stable Continue remdesivir day #3 Encouraged to participate with PT and OT Patient agrees Check Doppler ultrasound of the right lower extremity to rule out DVT 09/19 Stable overall Continue remdesivir day #4 PT OT recommending rehab, child welfare caseworker on board, referrals to [facility] being made Doppler ultrasound right lower extremity: Negative for DVT 09/20 Stable Remdesivir day number 5 out of 5 Awaiting discharge to [facility] 09/21 Stable Completed remdesivir 5-day course Patient prefers to go home with home health services Patient still needs to isolate for 5 more days (3) Epilepsy: Plan: Continue current medications (4) DM type 2 (diabetes mellitus, type 2): Plan: Continue usual regimen (5) CKD (chronic kidney disease) stage 4, GFR 15-29 ml/min: Plan: Creatinine at baseline Given gentle IV fluids was given (6) Cerebrovascular disease, arteriosclerotic, post-stroke: Plan: Continue with aspirin (7) Osteoarthritis: Plan: Severe osteoarthritic changes No acute arthritis DVT prophylaxis Subcu Lovenox CODE STATUS DNR/DNI Disposition Discharge to home with home health services Follow-up with PCP in 1 week Admission and Anticipated Discharge Date Admission Date: September 15, 2022 Subjective Follow-up for COVID-19 infection, diarrhea, etc. Seen sitting up in the bedside chair, watching TV, comfortable, not in distress Pleasant, oriented x3, answers all questions appropriately States she feels fine overall Denies shortness of breath, fevers, cough, chest pain, leg pain Denies weakness or dizziness States she is ambulating in the room fine No other symptoms States she would like to go home with home health services instead Explained risks of going home instead of rehab, including falls and injuries, patient verbalized understanding and agreement Advised to always ambulate carefully WITH a walker to prevent falls Review of Systems Review of Systems: all noted and negative except for above Physical Exam Physical Exam: General- oriented x 3, not in distress, speaks in sentences with no effort or accessory muscle use Eyes- anicteric Neck- no JVD Lungs- clear breath sounds bilaterally, no crackles Heart- normal rate, regular rhythm; no murmurs Abdomen- normal bowel sounds, nondistended, soft, nontender Extremities- no pretibial edema, no calf tenderness Neuro- alert, oriented x 3; no gross focal neurologic deficits Skin- warm & dry Results & Data Results & Data ([facility]) Vital Signs (Past 12 Hours) Vital Signs Temp Pulse Pulse Resp BP Pulse Ox O2 Del Method 09/21/22 11:54 36.3 C L 75 19 113/70 98 Room Air 09/21/22 09:47 Room Air 09/21/22 08:02 36.5 C 65 18 145/64 H 100 Room Air 09/21/22 07:33 66 09/21/22 04:15 36.4 C L 64 18 134/67 96 Room Air all noted and reviewed including below
--- NOTE | 2022-09-21 13:23 | Discharge Summary ---
Discharge Summary Date of Service September 21, 2022 Notes For Next Care Provider Medication Changes From Visit No changes Admission HPI Per Admitting Provider She is a 77 years old female with significant past medical history of chronic back pain, type 2 diabetes on oral medications, seizure disorder, chronic kidney disease stage IV, hypertension, history of TIA, carotid stenosis status post carotid endarterectomy and also frequent falls apparently has been found to have profuse diarrhea since this morning. She was brought in with stains of stools almost all over her body. She has been having incontinence of bowel. Denies any problem with urine. No fever and or chills and denies any abdominal pain. Distention, nausea and or vomiting. No fever and no chills and no cough or shortness of breath. No chest pain and/or palpitation. In the ER she was hemodynamically stable without any significant investigational finding except COVID 19 virus infection is positive. She is fully vaccinated. She has had antibiotic about 1 week before for UTI but her stool C. difficile was negative. Further stool studies are pending. She was admitted to [facility] telemetry unit for monitoring and continuation of care. Admission Exam Per Admitting Provider Physical Exam: Lying in bed comfortably Constitutional: well developed, well nourished, + ill appearing and average body habitus Eyes: PERRL, conjunctivae normal, anicteric sclerae ENMT: external ear and nose normal, oropharynx normal Neck: trachea midline, no thyromegaly Respiratory: no respiratory distress Auscultation: + diminished lung sounds and + crackles (Minimal crackles at the bases) Cardiovascular: Rate/Rhythm: regular rate and regular rhythm; not tachycardic Heart Sounds: normal S1 and normal S2; no murmur Extremities: no edema Gastrointestinal (Abdomen): Inspection/Auscultation: + abdomen distended and normal bowel sounds Percussion/Palpation: abdomen soft; abdomen nontender Musculoskeletal: Severe osteoarthritic changes involving the hands and feet but no acute arthritis in any joint Neurologic: normal touch/pain/proprioception and moves all extremities; no focal motor deficits Psychiatric: A+Ox3, euthymic affect Lymphatic: no cervical or axillary lymphadenopathy Principal Dx & Hospital Course #1 = Principal Diagnosis (1) Diarrhea: Possible COVID-related diarrhea Profuse diarrhea since this morning with incontinence and staining of stool all over the body No abdominal pain associated Stool culture is pending but C. difficile toxin was negative CT of the abdomen pelvis did not show any significant findings The diarrhea could be secondary to COVID-19 virus infection 09/21 Stool panel: Negative Diarrhea resolved (2) COVID-19 virus infection: She is fully vaccinated and boosted No known exposure COVID-19 was positive without any symptoms of cough and no shortness of breath Chest x-ray remained unremarkable C-reactive protein is 0.82 and procalcitonin is 0.20 CT chest: Possible infiltrates, bilateral bases Given patient's age, comorbidities, presentation, offered remdesivir therapy Discussed with patient including benefits and risks, Respiratory status remained stable O2 sats 96% on room air Renal function, LFTs okay Completed remdesivir 5-day course Patient prefers to go home with home health services Patient still needs to isolate for 5 more days (3) Epilepsy: Continue current medications (4) DM type 2 (diabetes mellitus, type 2): Continue usual regimen (5) CKD (chronic kidney disease) stage 4, GFR 15-29 ml/min: Creatinine at baseline Given gentle IV fluids was given (6) Cerebrovascular disease, arteriosclerotic, post-stroke: Continue with aspirin (7) Osteoarthritis: Severe osteoarthritic changes No acute arthritis DVT prophylaxis Subcu Lovenox given CODE STATUS DNR/DNI Disposition Discharge to home with home health services Follow-up with PCP in 1 week Discharge Exam General- oriented x 3, not in distress, speaks in sentences with no effort or accessory muscle use Eyes- anicteric Neck- no JVD Lungs- clear breath sounds bilaterally, no crackles Heart- normal rate, regular rhythm; no murmurs Abdomen- normal bowel sounds, nondistended, soft, nontender Extremities- no pretibial edema, no calf tenderness Neuro- alert, oriented x 3; no gross focal neurologic deficits Skin- warm & dry Updated Medication List Medication Instructions Recorded Confirmed Type Shower Chair #1 ea 06/03/20 09/15/22 Rx Lamictal 100 mg tablet 100 mg PO BID 90 days #180 tabs 05/12/21 09/15/22 Rx (lamotrigine) acetaminophen 650 mg 650 mg PO Q8H PRN Pain 05/19/22 09/15/22 History tablet,extended release (Tylenol 8 Hour) ascorbic acid (vitamin C) 1,000 mg 0 mg PO QAM 05/19/22 09/15/22 History tablet (Vitamin C) cyanocobalamin (vitamin B-12) 500 0 mcg PO QAM 05/19/22 09/15/22 History mcg tablet vit C 250 mg-vit E 90 mg-zinc 40 1 tab PO DAILY 05/19/22 09/15/22 History mg-copper 1 [id number] capsule (PreserVision AREDS-2) aspirin 81 mg tablet,delayed 81 mg PO QAM #30 tabs 06/08/22 09/15/22 Rx release glipizide 5 mg tablet 5 mg PO DAILY@0730 #30 tabs 06/08/22 09/15/22 Rx Zonegran 100 mg capsule 200 mg PO BID 30 days #120 caps 06/18/22 09/15/22 Rx (zonisamide) Hospital Stay Data Consultations 09/15/22 17:25 ED Decision to Admit Stat Diagnostic Imagining Performed Abdomen/Pelvis CT 09/15/22 14:28 CT abd pelvis wo con CLINICAL HISTORY: poss colitis or divertic TECHNIQUE: Helical axial images of the abdomen and pelvis were obtained. Automated dose lowering techniques and/or adjustment according to patient size were utilized for this exam. This exam was performed without intravenous contrast. CT DOSE: 905.07 mGycm COMPARISON: Comparison is made to CT pelvis 05/19/2022 FINDINGS: Exam is limited by patient positioning. Lower chest: Bibasilar atelectasis versus scarring is seen. Liver: Unremarkable. No focal lesions are seen. Gallbladder and biliary tree: Patient is status post cholecystectomy. No intra- or extrahepatic biliary ductal dilation. Pancreas: Unremarkable, no focal lesions. Spleen: Unremarkable. Adrenals: Unremarkable. Kidneys and ureters: No hydronephrosis is seen. No obstructive stones are noted. Atrophic appearance Bladder: Unremarkable. Reproductive organs: Unremarkable. Bowel: Diverticulosis is seen without evidence of diverticulitis. Lymph nodes Retroperitoneal: Subcentimeter lymph nodes are noted. Pelvic: Unremarkable. Mesenteric: Unremarkable. Peritoneum: Normal. Vessels: Atherosclerotic calcifications are seen. Abdominal wall: Unremarkable. Bones: Right hip arthroplasty is seen. Multilevel compression deformities are noted in the spine, favored to be chronic. Were visualized on prior pelvic CT, they are unchanged. IMPRESSION: 1. No acute abnormalities and in particular no evidence of colitis. Diverticulosis is seen without evidence of diverticulitis. A small hiatal hernia is seen. 2. Compression deformities of the spine, likely chronic. 3. Atrophic appearing kidneys. ACT 112: Negative or not required by law. Electronically signed by: Ehsan Cates M.D. 09/15/2022 3:38 PM Chest X-Ray 09/15/22 17:28 XR chest 1V portable CLINICAL HISTORY: Covid 19 infection TECHNIQUE: Single frontal radiograph of the chest was obtained. Comparison: Comparison is made to chest radiograph 05/19/2022 FINDINGS: No lines and tubes are seen. Cardiomegaly is noted. The aortic arch is calcified. Prominence and cephalization of the vasculature is seen. Faint airspace opacities are noted. No evidence of pleural effusion or pneumothorax. Bilateral shoulder degenerative changes are seen. IMPRESSION: Cardiomegaly and mild pulmonary edema. Faint airspace opacities are seen suggestive of atelectasis and/or pneumonia. ACT 112: Negative or not required by law. Electronically signed by: Ehsan Cates M.D. 09/15/2022 5:46 PM Venous Doppler Study 09/18/22 16:29 RIGHT LOWER EXTREMITY VENOUS DOPPLER CLINICAL HISTORY: leg pain, erythema, r/o DVT COMPARISON STUDY: Bilateral lower extremity venous Doppler ultrasound May 22, 2022. TECHNIQUE: Sonography of the deep venous system of the right lower extremity was performed. Compression and augmentation were evaluated. FINDINGS: The right common femoral, superficial femoral and popliteal veins were compressible. Augmentation was normal. Flow was shown within the deep calf vessels. IMPRESSION: No evidence of deep venous thrombus within the right lower extremity. ACT 112: Negative or not required by law. Electronically signed by: Aakash Jaramillo M.D. 09/18/2022 6:04 PM Pending Results Patient Have Any Pending Studies at Discharge: No Discharge Instructions Given to Patient (Per Discharging Provider) You still need to isolate at home for 5 more days. Continue usual medication regimen. Always ambulate carefully with a walker to prevent falls. PLEASE CALL YOUR PRIMARY CARE PHYSICIAN OR RETURN TO THE ER IF WITH WORSENING OF SYMPTOMS, INCLUDING Diarrhea, abdominal pain, vomiting, fever, cough, shortness of breath, etc. FOLLOW UP WITH PRIMARY CARE PHYSICIAN OUTLINED ABOVE. Home Isolation COVID-19 Instructions The following information about Home Isolation is from the CDC Website: https://www.cdc.gov/coronavirus/2019-ncov/hcp/oxbygpjf-cvwkvuz-bfgzvj.html Stay home except to get medical care People who are mildly ill with COVID-19 are able to isolate at home during their illness. You should restrict activities outside your home, except for getting medical care. Do not go to work, school, or public areas. Avoid using public transportation, ride-sharing, or taxis. Separate yourself from other people and animals in your home People: As much as possible, you should stay in a specific room and away from other people in your home. Also, you should use a separate bathroom, if available. Animals: You should restrict contact with pets and other animals while you are sick with COVID-19, just like you would around other people. Although there have not been reports of pets or other animals becoming sick with COVID-19, it is still recommended that people sick with COVID-19 limit contact with animals until more information is known about the virus. When possible, have another member of your household care for your animals while you are sick. If you are sick with COVID-19, avoid contact with your pet, including petting, snuggling, being kissed or licked, and sharing food. If you must care for your pet or be around animals while you are sick, wash your hands before and after you interact with pets and wear a face mask. Call ahead before visiting your doctor If you have a medical appointment, call the healthcare provider and tell them that you have or may have COVID-19. This will help the healthcare providers office take steps to keep other people from getting infected or exposed. Wear a face mask You should wear a face mask when you are around other people (e.g., sharing a room or vehicle) or pets and before you enter a healthcare providers office. If you are not able to wear a face mask (for example, because it causes trouble breathing), then people who live with you should not stay in the same room with you, or they should wear a face mask if they enter your room. Cover your coughs and sneezes Cover your mouth and nose with a tissue when you cough or sneeze. Throw used tissues in a lined trash can. Immediately wash your hands with soap and water for at least 20 seconds or, if soap and water are not available, clean your hands with an alcohol-based hand riveter pneumatic that contains at least 60% alcohol. Clean your hands often Wash your hands often with soap and water for at least 20 seconds, especially after blowing your nose, coughing, or sneezing; going to the bathroom; and before eating or preparing food. If soap and water are not readily available, use an alcohol-based hand riveter pneumatic with at least 60% alcohol, covering all surfaces of your hands and rubbing them together until they feel dry. Soap and water are the best option if hands are visibly dirty. Avoid touching your eyes, nose, and mouth with unwashed hands. Avoid sharing personal household items You should not share dishes, drinking glasses, cups, eating utensils, towels, or bedding with other people or pets in your home. After using these items, they should be washed thoroughly with soap and water. Clean all high-touch surfaces everyday High touch surfaces include counters, tabletops, doorknobs, bathroom fixtures, toilets, phones, keyboards, tablets, and bedside tables. Also, clean any surfaces that may have blood, stool, or body fluids on them. Use a household cleaning spray or wipe, according to the label instructions. Labels contain instructions for safe and effective use of the cleaning product including precautions you should take when applying the product, such as wearing gloves and making sure you have good ventilation during use of the product. Monitor your symptoms Seek prompt medical attention if your illness is worsening (e.g., difficulty breathing).Beforeseeking care, call your healthcare provider and tell them that you have, or are being evaluated for, COVID-19. Put on a face mask before you enter the facility. These steps will help the healthcare providers office to keep other people in the office or waiting room from getting infected or exposed. Ask your healthcare provider to call the local or state health department. Persons who are placed under active monitoring or facilitated self- monitoring should follow instructions provided by their local health department or occupational health professionals, as appropriate. When working with your local health department check their available hours. If you have a medical emergency and need to call 911, notify the dispatch personnel that you have, or are being evaluated for COVID-19. If possible, put on a face mask before emergency medical services arrive. Discontinuing home isolation Patients with confirmed COVID-19 should remain under home isolation precautions until the risk of secondary transmission to others is thought to be low. The decision to discontinue home isolation precautions should be made on a [id number] basis, in consultation with healthcare providers and state and [facility] health departments. Total Time Total Time Spent Total Time Spent (In Minutes): >30 minutes
[2022-09-21 14:50] LABS: Albumin Globulin Ratio 1.5 (0.9-2); Albumin Level 3.8 gm/dl (3.4-5.0); BUN Creatinine Ratio 12.9 (10-20); Bilirubin,Total 0.4 mg/dl (0.2-1.0); Calcium 8.3 mg/dl (8.5-10.1); Creatinine Clr Calc Pharmacy 20.9 ml/min; Est GFR (African American) 24.8 ml/min; Est GFR (Non-African American) 21.4 ml/min; Globulin 2.5 gm/dl (2.5-4.0); Potassium 3.8 mmol/L (3.5-5.1); Total Protein 6.3 gm/dl (6.0-8.3)
== END 2022-09-21 15:30 | disposition home health service (06) | DRG 178 ==
LOC: ED 12:47 → 2N 17:56 → SUATTDRO 17:56 → 2N 20:32

== ENCOUNTER 2023-01-01 22:08 | Observation (INO) ==
[2023-01-01] MEDS ORDERED: SODIUM CHLORIDE 0.9% 1000ML 500 ML IV ONE (22:48)
[2023-01-01] MEDS ORDERED: ONDANSETRON INJ 2 MG/ML 2 ML VIAL IV STA (22:49)
[2023-01-01] MEDS ORDERED: fentaNYL citrate PF 100 MCG/2 ML VIAL IV ONE ×2 (22:49→23:42)
--- NOTE | 2023-01-01 22:58 | Emergency Department Note ---
History of Present Illness General Chief complaint: Abdominal Pain Stated complaint: Abdominal Pain Time Seen by Provider: 01/01/23 22:37 Source: patient and old records reviewed Mode of arrival: EMS Limitations: no limitations History of Present Illness This patient is a 77-year-old female who has multiple medical problems, comes in after a left-sided abdominal pain. She feels like her abdomen has been distended for about 2 weeks and she has been having pain. She says her bowels have been moving but they have been hard. No dysuria or hematuria. no numbness or weakness she has chronic problems with sciatica on the left as well and pain in her hip which is chronic. No chest pain or shortness of breath no injury no blood or melena in her stool. She did have gallbladder removed about 20 years ago and hernia repair in the past. She denies that she is on any blood thinners. She does have a history of seizure but has not had any seizures for many years. Home Medications Medication Instructions Recorded Confirmed Type Shower Chair #1 ea 06/03/20 01/02/23 Rx acetaminophen 650 mg 650 mg PO Q8H PRN Pain 05/19/22 01/02/23 History tablet,extended release (Tylenol 8 Hour) ascorbic acid (vitamin C) 1,000 mg 1,000 mg PO QAM 05/19/22 01/02/23 History tablet (Vitamin C) cyanocobalamin (vitamin B-12) 500 500 mcg PO QAM 05/19/22 01/02/23 History mcg tablet vit C 250 mg-vit E 90 mg-zinc 40 1 tab PO DAILY 05/19/22 01/02/23 History mg-copper 1 [id number] capsule (PreserVision AREDS-2) aspirin 81 mg tablet,delayed 81 mg PO QAM #30 tabs 06/08/22 01/02/23 Rx release glipizide 5 mg tablet 5 mg PO DAILY@0730 #30 tabs 06/08/22 01/02/23 Rx calcium carbonate 600 mg-vitamin 2 tab PO DAILY 11/28/22 01/02/23 History D3 10 mcg (400 unit) tablet (Calcium 600 + D(3)) bisacodyl 10 mg rectal suppository 10 mg UT UD 01/02/23 01/02/23 History polyethylene glycol 3350 17 17 g PO DAILY PRN Constipation 01/02/23 01/02/23 History gram/dose oral powder (ClearLax) Allergies Allergy/AdvReac Type Severity Reaction Status Date / Time omeprazole Allergy Severe throat Verified 11/28/22 02:26 swelling alendronate sodium Allergy Unknown GI SYMPTOMS Verified 11/28/22 02:26 oxytocin Allergy Unknown Nausea and Verified 11/28/22 02:26 vomiting pioglitazone Allergy Unknown Edema BLE Verified 11/28/22 02:26 prednisone Allergy Unknown Nausea and Verified 11/28/22 02:26 vomiting risedronate sodium Allergy Unknown Headache Verified 11/28/22 02:26 and weakness sitagliptin Allergy Unknown Itching Verified 11/28/22 02:26 valproic acid Allergy Unknown Affected Verified 11/28/22 02:26 her memory divalproex sodium Allergy Unknown Verified 11/28/22 02:26 [From Depakote] fluoxetine [From Prozac] Allergy Unknown Verified 11/28/22 02:26 codeine AdvReac Unknown NAUSEA/VOMI Verified 11/28/22 02:26 TING morphine AdvReac Unknown nausea/vomi Verified 11/28/22 02:26 ting oxycodone AdvReac Unknown nausea/vomi Verified 11/28/22 02:26 ting 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 GERD (gastroesophageal reflux disease) Hypotension Hypothyroidism Intertrochanteric fracture of right hip (07/18/14) Migraine Osteoarthritis Osteoarthritis of shoulder Osteoporosis, senile PAD (peripheral artery disease) Rhabdomyolysis Rhabdomyolysis Screening for skin condition Stasis dermatitis Venous stasis ulcer of right lower extremity Vertebral fracture, osteoporotic Surgical History H/O total knee replacement History of bilateral knee replacement History of left-sided carotid endarterectomy S/P cholecystectomy S/P rotator cuff repair Family History Mother Transitional cell carcinoma of bladder Diabetes Cardiac disorder Hypertension Ovarian cancer Grandmother Cancer Uncle Cancer Father Cardiac disorder Hypertension Asthma Social History Smoking Status: Never smoker Hx Alcohol Use: No Hx Substance Use: No Preferred Language: Senegalese Communication Ability: Effective Marzipan Molder Required: No Beliefs That Will Affect Care: None marital status: / Current Living Situation: Alone Current Living Situation Comment: [employer] tuesdays How many Children do You have: 2 Feels Safe at Home: Yes Assistive Devices: Denture - Upper and Walker Review of Systems A total of 10 systems reviewed and were otherwise negative Physical Exam Vital Signs Vital Signs - 24 hr 01/01/23 22:19 01/01/23 22:49 01/01/23 22:24 Temperature 36.7 C Temperature Source Temporal Artery Scan Pulse Rate 75 81 Pulse Rate [Finger] Pulse Rhythm Regular Pulse Rhythm [Finger] Pulse Strength Normal Pulse Strength [Finger] Respiratory Rate 18 Respiratory Effort / Characteristics Non-Labored Spontaneous Respiratory Depth Normal Respiratory Pattern Blood Pressure 170/80 H Blood Pressure [Right Arm] Blood Pressure Mean 110 Blood Pressure Mean [Right Arm] Blood Pressure Position [Right Arm] Pulse Oximetry 93 93 Oxygen Delivery Method Room Air Room Air Sepsis Recent Fever Within 48 Hours No Sepsis New/Unexplained Change in Mental Status N/A Sepsis Action Taken by Nursing No Action Required 01/02/23 00:14 Temperature Temperature Source Pulse Rate Pulse Rate [Finger] 84 Pulse Rhythm Pulse Rhythm [Finger] Regular Pulse Strength Pulse Strength [Finger] Normal Respiratory Rate 17 Respiratory Effort / Characteristics Non-Labored Respiratory Depth Normal Respiratory Pattern Regular Blood Pressure Blood Pressure [Right Arm] 107/80 Blood Pressure Mean Blood Pressure Mean [Right Arm] 89 Blood Pressure Position [Right Arm] Lying Pulse Oximetry 97 Oxygen Delivery Method Room Air Sepsis Recent Fever Within 48 Hours Sepsis New/Unexplained Change in Mental Status Sepsis Action Taken by Nursing General: Well developed well nourished older female who in no acute distress, breathing comfortably on room air. Normal speech HEENT: Normal cephalic atraumatic. Pupils are equal round and reactive to light. Extraocular movements are intact. Oropharynx is pink with moist mucous membranes. No swelling of the mouth lips or tongue. Neck: Supple with a midline trachea. No meningeal signs or stiffness, no JVD or bruits. No Stridor. Chest: Clear to auscultation bilaterally. No wheezes or rhonchi. No increased work of breathing. Heart: Regular rate and rhythm without murmurs or gallops. Abdomen: Soft she does appear to be mild to moderately distended but soft and only mildly tender in the left abdomen. She has a large horizontal surgical scar from her previous surgeries without rebound guarding or rigidity. Extremities: No cyanosis clubbing or edema. No calf tenderness or assymetry Spine/Back. Non tender to palpation. No CVA tenderness Skin: Good turgor without rashes. Neurologic exam: Cranial nerves two through 12 are intact. Motor and sensation are intact and symmetrical throughout. Course Administered Medications Discontinued Medications Fentanyl Citrate (Fentanyl Citrate 100 Mcg/2 Ml Vial) 25 mcg IV NOW ONE Stop: 01/01/23 22:50 Last Admin: 01/01/23 23:05 Dose: 25 mcg Documented By: LITA Fentanyl Citrate (Fentanyl Citrate 100 Mcg/2 Ml Vial) 25 mcg IV NOW ONE Stop: 01/01/23 23:43 Last Admin: 01/01/23 23:51 Dose: 25 mcg Documented By: LITA Sodium Chloride (Nss 1000ml) 500 mls @ 999 mls/hr IV .Q31M ONE Stop: 01/01/23 23:18 Last Infusion: 01/01/23 23:40 Dose: 0 mls/hr Documented By: Admin: 01/01/23 23:05 Dose: 999 mls/hr Documented By: LITA Insulin Human Regular (Novolin-R Insulin Per Unit Charge) 3 units SC NOW STA Stop: 01/01/23 23:43 Last Admin: 01/01/23 23:51 Dose: 3 units Documented By: LITA Co-signed By: DEJAN Ondansetron HCl (Ondansetron Inj 2 Mg/Ml 2 Ml Vial) 4 mg IV NOW STA Stop: 01/01/23 22:50 Last Admin: 01/01/23 23:05 Dose: 4 mg Documented By: LITA Medical Decision Making Differential Diagnosis Diverticulitis, colitis, constipation, bowel obstruction, infection, UTI, cardiac disease, electrolyte or metabolic abnormality Medical Records Attestation: I reviewed the patient's medical records. Home Medications Current Medication List: was personally reviewed by me Laboratory Data Attestation: I reviewed the patient's lab results. 01/01/23 22:13 03/03/23 22:13 Lab Results 01/01/23 01/01/23 01/01/23 Range/Units 22:13 22:13 22:13 WBC 9.52 (4.8-10.8) K/ul RBC 3.74 L (4.20-5.40) M/uL Hgb 11.6 L (12.0-16.0) g/dl POC Hgb (12.0-16.0) g/dl Hct 35.8 L (37.0-47.0) % POC Hct (37-47) % MCV 95.7 (80.0-100.0) fL MCH 31.0 (25.0-34.0) pg MCHC 32.4 (32.0-36.0) g/dL RDW Std Deviation 47.0 H (36.4-46.3) fL RDW Coeff of Tony 13.2 (11.5-14.5) % Plt Count 232 (130-400) K/uL MPV 9.7 (9.4-12.4) fL Immature Gran % (Auto) 0.4 % Neut % (Auto) 69.8 % Lymph % (Auto) 19.0 % [place] % (Auto) 7.9 % Eos % (Auto) 2.5 % Baso % (Auto) 0.4 % Neut # (Auto) 6.64 H (1.40-6.50) K/uL Lymph # (Auto) 1.81 (1.2-3.4) K/uL [place] # (Auto) 0.75 H (0.11-0.59) K/uL Eos # (Auto) 0.24 (0-0.50) K/uL Baso # (Auto) 0.04 (0-0.2) K/uL Immature Gran # (Auto) 0.04 (0.01-0.20) K/uL PT 10.1 (9.0-12.0) Seconds INR 0.9 (0.9-1.1) POC Sodium (135-144) mmol/L Sodium 135 L (136-145) mmol/L POC Potassium (3.3-5.0) mmol/L Potassium 3.5 (3.5-5.1) mmol/L POC Chloride (101-112) mmol/L Chloride 104 (98-107) mmol/L Carbon Dioxide 22 (21-32) mmol/L POC Total CO2 (24-31) mmol/L Anion Gap 9 (3-11) POC Anion Gap (16-25) mmol/L POC BUN (7-18) mg/dl BUN 27 H (6-23) mg/dl Creatinine 2.05 H (0.6-1.2) mg/dl POC Creatinine (0.6-1.3) mg/dl Est Cr Clr Drug Dosing 22.0 ml/min Est GFR ( Amer) 26.6 ml/min Est GFR (Non-Af Amer) 23.0 ml/min BUN/Creatinine Ratio 13.2 (10-20) Glucose 442 H* (70-99(Fasting)) mg/dl POC Glucose (other) (70-99) mg/dl Calcium 8.1 L (8.5-10.1) mg/dl POC Ioniz Calcium Sophie (1.12-1.32) mmol/l Total Bilirubin 0.3 (0.2-1.0) mg/dl AST 14 (13-39) U/L ALT 6 L (7-52) U/L Alkaline Phosphatase 255 H (34-104) U/L Troponin I High Sens 13.6 (0-14) pg/ml Total Protein 6.4 (6.0-8.3) gm/dl Albumin 3.9 (3.4-5.0) gm/dl Globulin 2.5 (2.5-4.0) gm/dl Albumin/Globulin Ratio 1.6 (0.9-2) Lipase 60 (11-82) U/L 01/01/23 Range/Units 22:59 WBC (4.8-10.8) K/ul RBC (4.20-5.40) M/uL Hgb (12.0-16.0) g/dl POC Hgb 11.6 L (12.0-16.0) g/dl Hct (37.0-47.0) % POC Hct 34 L (37-47) % MCV (80.0-100.0) fL MCH (25.0-34.0) pg MCHC (32.0-36.0) g/dL RDW Std Deviation (36.4-46.3) fL RDW Coeff of Tony (11.5-14.5) % Plt Count (130-400) K/uL MPV (9.4-12.4) fL Immature Gran % (Auto) % Neut % (Auto) % Lymph % (Auto) % [place] % (Auto) % Eos % (Auto) % Baso % (Auto) % Neut # (Auto) (1.40-6.50) K/uL Lymph # (Auto) (1.2-3.4) K/uL [place] # (Auto) (0.11-0.59) K/uL Eos # (Auto) (0-0.50) K/uL Baso # (Auto) (0-0.2) K/uL Immature Gran # (Auto) (0.01-0.20) K/uL PT (9.0-12.0) Seconds INR (0.9-1.1) POC Sodium 137 (135-144) mmol/L Sodium (136-145) mmol/L POC Potassium 3.6 (3.3-5.0) mmol/L Potassium (3.5-5.1) mmol/L POC Chloride 103 (101-112) mmol/L Chloride (98-107) mmol/L Carbon Dioxide (21-32) mmol/L POC Total CO2 19 L (24-31) mmol/L Anion Gap (3-11) POC Anion Gap 20.0 (16-25) mmol/L POC BUN 26 H (7-18) mg/dl BUN (6-23) mg/dl Creatinine (0.6-1.2) mg/dl POC Creatinine 2.0 H (0.6-1.3) mg/dl Est Cr Clr Drug Dosing ml/min Est GFR ( Amer) ml/min Est GFR (Non-Af Amer) ml/min BUN/Creatinine Ratio (10-20) Glucose (70-99(Fasting)) mg/dl POC Glucose (other) 407 H* (70-99) mg/dl Calcium (8.5-10.1) mg/dl POC Ioniz Calcium Sophie 1.11 L (1.12-1.32) mmol/l Total Bilirubin (0.2-1.0) mg/dl AST (13-39) U/L ALT (7-52) U/L Alkaline Phosphatase (34-104) U/L Troponin I High Sens (0-14) pg/ml Total Protein (6.0-8.3) gm/dl Albumin (3.4-5.0) gm/dl Globulin (2.5-4.0) gm/dl Albumin/Globulin Ratio (0.9-2) Lipase (11-82) U/L Imaging Data Attestation: I personally reviewed and interpreted this imaging study as follows: My Impression: CAT scan of the abdomen pelvisno contrast-no hemorrhage or aortic aneurysm seen. No bowel obstruction or free air ECG Data Attestation: I personally reviewed and interpreted this ECG as follows: Indication: + abdominal pain Rate (beats per minute): 69 Rhythm: + normal sinus and + other (Poor baseline but appears to be normal sinus) ECG Intervals/blocks: + Incomplete right bundle branch block, + Normal QT and + Normal UT ECG [place]: + Left axis deviation ECG ST segments: + Nonspecific ST abnormalities ECG Findings: no PACs or no PVCs Comparison ECG Date: from (09/15/22) Change: no significant change MDM Narrative This patient comes in as described above. She was placed on a compliance monitor in room B9. She is here for treatment and evaluation of left-sided abdominal pain. She does have some distention although a lot of this sounds more chronic. IV access established was hydrated with a gentle IV fluid bolus. EKG does not show any ischemic changes or ectopy I did order blood work urine and a CAT scan. She says she has 8 out of 10 pain and she is allergic or sensitive a lot of pain medication. I did see that she had fentanyl here in the past. So I gave her a small dose of fentanyl 25 micrograms IV and Zofran 4 mg IV. It looks like most of her pain medication issues have been more GI intolerance. Her blood glucose was over 400 although she has no evidence suggest DKA she was given 3 units of subcu insulin. We did have to give her a second dose of fentanyl 25 mcg because she could not tolerate the CAT scan. She was feeling a lot better after this but she does not feel she can go home I looked at the CAT scan and I do not see any aneurysm or bowel obstruction. I do think she will need to be admitted/observed for pain management regardless of what the CAT scan shows on the final read. I have discussed the case with the hospitalist Dr. Hanks and he will who to see in the ER for these measures. Continuous cardiac monitoring: Orders placed in EMR for continuous cart monitoring. Upon my interpretation she was noted to be in normal sinus rhythm with a rate of 70. Impression & Plan Abdominal pain, DM type 2 (diabetes mellitus, type 2), CKD (chronic kidney disease), stage III, Hyperglycemia Discharge Plan Visit Data Chief Complaint: Abdominal Pain Stated Complaint: Abdominal Pain ED Provider: Tony Viveros Discharge Problem: Abdominal pain, DM type 2 (diabetes mellitus, type 2), CKD (chronic kidney disease), stage III, Hyperglycemia Forms Stand Alone Forms: My [facility] [employer] Prescriptions Prescriptions: No Action (DME) Shower Chair Misc See Rx Instructions .ROUTE .MEDSUPPLY Qty: 1 0RF Rx Instructions: As directed ascorbic acid (vitamin C) [Vitamin C] 1,000 mg Tablet 1,000 mg PO QAM cyanocobalamin (vitamin B-12) 500 mcg Tablet 500 mcg PO QAM acetaminophen [Tylenol 8 Hour] 650 mg Tablet Extended Release 650 mg PO Q8H PRN (Reason: Pain) PreserVision AREDS-2 250-90-40-1 mg Capsule 1 tab PO DAILY glipizide 5 mg Tablet 5 mg PO DAILY@0730 Qty: 30 0RF aspirin 81 mg Tablet,Delayed Release (Dr/Ec) 81 mg PO QAM Qty: 30 0RF calcium carbonate-vitamin D3 [Calcium 600 + D(3)] 600 mg-10 mcg (400 unit) Tablet 2 tab PO DAILY bisacodyl 10 mg suppository 10 mg UT UD polyethylene glycol 3350 [ClearLax] 17 gram/dose powder 17 g PO DAILY PRN (Reason: Constipation) Rx Instructions: mix in 8 oz of liquid Referrals Referrals: Franklyn Hood, [Primary Care Provider] - Abdominal pain Qualifiers: Abdominal location: left lower quadrant Qualified Code(s): R10.32 - Left lower quadrant pain DM type 2 (diabetes mellitus, type 2) Qualifiers: Diabetes mellitus watcher [employer] insulin use: without mcc use Diabetes mellitus complication status: without complication Qualified Code(s): E11.9 - Type 2 diabetes mellitus without complications CKD (chronic kidney disease), stage III Qualifiers: Chronic kidney disease stage 3 subtype: unspecified whether 3a or 3b Qualified Code(s): N18.30 - Chronic kidney disease, stage 3 unspecified
[2023-01-01 23:08] LABS: Basophils # (auto) 0.04 K/uL (0-0.2); Basophils % (auto) 0.4 %; Eosinophils # (auto) 0.24 K/uL (0-0.50); Eosinophils % (auto) 2.5 %; Hematocrit (blood only) 35.8 % (37.0-47.0); Hemoglobin 11.6 g/dl (12.0-16.0); Immature Granulocytes # (auto) 0.04 K/uL (0.01-0.20); Immature Granulocytes % (auto) 0.4 %; Lymphocytes # (auto) 1.81 K/uL (1.2-3.4); Mean Corpuscular Hgb Conc 32.4 g/dL (32.0-36.0); Mean Corpuscular Volume 95.7 fL (80.0-100.0); Mean Platelet Volume 9.7 fL (9.4-12.4); Monocytes # (auto) 0.75 K/uL (0.11-0.59); Monocytes % (auto) 7.9 %; Neutrophils # (auto) 6.64 K/uL (1.40-6.50); Neutrophils % (auto) 69.8 %; Platelet Count 232 K/uL (130-400); RDW Coefficient of Variation 13.2 % (11.5-14.5); Red Blood Count 3.74 M/uL (4.20-5.40); White Blood Count 9.52 K/ul (4.8-10.8)
[2023-01-01 23:17] LABS: Albumin Globulin Ratio 1.6 (0.9-2); Albumin Level 3.9 gm/dl (3.4-5.0); BUN Creatinine Ratio 13.2 (10-20); Bilirubin,Total 0.3 mg/dl (0.2-1.0); Calcium 8.1 mg/dl (8.5-10.1); Est GFR (African American) 26.6 ml/min; Globulin 2.5 gm/dl (2.5-4.0); Potassium 3.5 mmol/L (3.5-5.1); Total Protein 6.4 gm/dl (6.0-8.3)
[2023-01-01 23:27] LABS: iSTAT Hemoglobin 11.6 g/dl (12.0-16.0); iSTAT Ionized Calcium 1.11 mmol/l (1.12-1.32); iSTAT Potassium 3.6 mmol/L (3.3-5.0)
[2023-01-01 23:38] LABS: INR 0.9 (0.9-1.1); Prothrombin Time 10.1 Seconds (9.0-12.0)
[2023-01-01] MEDS ORDERED: NovoLIN-R INSULIN PER UNIT CHARGE SC STA (23:42)
[2023-01-01 23:59] LABS: Troponin I High Sensitivity 13.6 pg/ml (0-14)
--- NOTE | 2023-01-02 01:41 | CT Scan Report ---
Exam(s): CT ABDOMEN + PELVIS Without Contrast EXAM: CT Abdomen and Pelvis Without Intravenous Contrast CLINICAL HISTORY: eval for left abd pain. TECHNIQUE: Axial computed tomography images of the abdomen and pelvis without intravenous contrast. Automated exposure control was utilized for the study. A dose lowering technique was utilized adhering to the principles of ALARA. COMPARISON: 09/15/2022 FINDINGS: Lung bases: Curvilinear changes at the lung bases are similar to the previous examination. ABDOMEN: Liver: The unenhanced liver demonstrates stable contours in appearance. Gallbladder and bile ducts: Stable cholecystectomy. No ductal dilation. Pancreas: Unremarkable. No ductal dilation. Spleen: Unremarkable. No splenomegaly. Adrenals: Unremarkable. No mass. Kidneys and ureters: Kidneys are slightly atrophic in stable in appearance. No obstructing stones. No hydronephrosis. Stomach and bowel: No evidence for bowel obstruction. No definite asymmetric bowel mucosal abnormality or significant alteration when compared to the previous examination, accounting for limitations with lack of IV contrast. Similar diverticulosis without definitive evidence for diverticulitis. Stomach is moderately distended with fluid, gas and minimal retained oral contents. No gastric mucosal thickening or reflux into the distal thoracic esophagus. PELVIS: Appendix: No findings to suggest acute appendicitis. Bladder: Unremarkable. No stones. Reproductive: Unremarkable as visualized. ABDOMEN and PELVIS: Intraperitoneal space: Unremarkable. No free air. No significant fluid collection. Bones/joints: There is a new fracture involving the L1 vertebral body involving the anterior cortex and inferior endplate (series 301; images 41-47). No retropulsion of the posterior cortex or involvement of the pedicles or posterior elements. A right total hip arthroplasty is noted. There are chronic fractures involving the bilateral pedicles at L3 level, stable from the previous exam. Chronic compression fractures noted from L2-L5 levels, stable in appearance. No dislocation. Soft tissues: Unremarkable. Vasculature: Unremarkable. No abdominal aortic aneurysm. Lymph nodes: Unremarkable. No enlarged lymph nodes. IMPRESSION: 1. No evidence for bowel obstruction. No definite asymmetric bowel mucosal abnormality or significant alteration when compared to the previous examination, accounting for limitations with lack of IV contrast. Similar diverticulosis without definitive evidence for diverticulitis. No free intraperitoneal fluid or pneumoperitoneum. 2. There is a new fracture involving the L1 vertebral body involving the anterior cortex and inferior endplate (series 301; images 41-47). No retropulsion of the posterior cortex or involvement of the pedicles or posterior elements. No significant loss of height when compared to the previous examination. 3. Stomach is moderately distended with fluid, gas and minimal retained oral contents. No gastric mucosal thickening or reflux into the distal thoracic esophagus. Please correlate with time line of oral ingestion for potential gastroparesis. 4. There are chronic fractures involving the bilateral pedicles at L3 level, stable from the previous exam. Chronic compression fractures noted from L2-L5 levels, stable in appearance. Electronically signed by: Bob Perez MD 01/02/23 01:40 AM
[2023-01-02] MEDS ORDERED: NovoLIN-R INSULIN PER UNIT CHARGE IV STA (02:20)
[2023-01-02] MEDS ORDERED: GLUCAGON FOR INJ 1 MG VIAL SQ PRN (03:48)
[2023-01-02] MEDS ORDERED: DEXTROSE 50% 50 ML SYRINGE IV PRN (03:48)
[2023-01-02] MEDS ORDERED: HYDROmorphone INJ 0.5 MG/0.5 ML SYR IV PRN ×2 (03:48→11:52)
[2023-01-02] MEDS ORDERED: GLUCOSE 10 TAB/TUBE PO PRN (03:48)
[2023-01-02] MEDS ORDERED: GLUCOSE 40% GEL 15 GM TUBE PO PRN (03:48)
[2023-01-02] MEDS ORDERED: POLYETHYLENE (MIRALAX) 17 GM PACK PO PRN (03:48)
[2023-01-02] MEDS ORDERED: SODIUM CHLORIDE 0.9% 1000ML 1,000 ML IV SCH (03:48)
[2023-01-02] MEDS ORDERED: CARBOHYDRATES FOR HYPOGLYCEMIA PO PRN (03:48)
[2023-01-02] MEDS ORDERED: ACETAMINOPHEN 325 MG TAB PO PRN (03:48)
--- NOTE | 2023-01-02 04:03 | History and Physical Report ---
DATE OF ADMISSION: 01/02/2023. CHIEF COMPLAINT: Abdominal pain. HISTORY OF PRESENT ILLNESS: This is a 77-year-old female with past medical history significant for chronic back pain, type 2 diabetes, on oral medication, history of seizure disorder, history of chronic kidney disease stage IV, hypertension, history of TIA, history of carotid stenosis, status post carotid endarterectomy, history of COVID, presents with severe abdominal pain. The patient lives alone. She says her abdominal pain is going on for last few days. She says she saw family doctor a few days back. She has abdominal x-ray on 12/24/2022, which showed some moderate stool burden. She was given some Metamucil and stool softener, but the patient's didnot took them and as she is not getting better, she came here and imaging studies shows L1 compression fracture. The patient says the pain is radiating to the back. She also has some sciatica. She ambulates with a walker at home. Currently, she received 2 doses of fentanyl and got somewhat drowsy. She says pain is improved with the pain medication. Hemodynamically stable. Denies any headache. No neck pain, no blurred visions, no earache. She has some runny nose from allergies. No sore throat, no cough, no fevers, no chest pain, no shortness of breath, no nausea, no vomiting. She says her appetite is okay. She says that she is somewhat constipated. Stools are hard. Denies any blood in the stool or black stools. Normal micturition. She has some chronic skin changes to lower extremities and its is nothing new. ALLERGIES: TO OMEPRAZOLE, ALENDRONATE, OXYTOCIN, PIOGLITAZONE, PREDNISONE, RISEDRONATE, SITAGLIPTIN, VALPROIC ACID, DEPAKOTE, PROZAC, CODEINE, MORPHINE, OXYCODONE. PAST MEDICAL HISTORY: As mentioned above. PAST SURGICAL HISTORY: Colonoscopy, injection of lumbosacral spine, bilateral knee replacement, cholecystectomy, right rotator cuff repair, left carotid endarterectomy. MEDICATIONS: The patient is on Tylenol 650 mg p.o. q. 8 hours p.r.n., vitamin C 1000 mg p.o. a.m., aspirin 81 mg p.o. a.m., Bisacodyl 10 mg per rectal p.r.n., calcium plus vitamin D 2 tablets p.o. daily, vitamin B12 500 mcg p.o. daily, glipizide 5 mg p.o. daily, Lamictal 100 mg p.o. b.i.d., MiraLax 17 g p.o. daily p.r.n., PreserVision AREDS 2 one tablet p.o. daily, Zonegran 200 mg p.o. b.i.d. FAMILY HISTORY: Significant for father has asthma, hypertension; mother has hypertension, uterine cancer and diabetes. SOCIAL HISTORY: No smoking, no alcohol, no drug use. REVIEW OF SYSTEMS: As per HPI. Rest of review of systems is negative. PHYSICAL EXAMINATION: GENERAL: The patient is of moderate build, not in acute distress. VITAL SIGNS: Temperature 36.7, pulse 84, respiratory rate 17, blood pressure 107/80, oxygen 97% on room air. HEENT: Pupils equal, round and reactive to light. Oral mucosa dry. NECK: No JVD. No neck masses. CARDIOVASCULAR: S1 and S2 heard. Regular rate and rhythm. No murmur, no gallop. RESPIRATORY SYSTEM: Normal AP diameter. No accessory muscle use. No wheezing, no crackles. ABDOMEN: Soft, bowel sounds present, nontender, no distention. CENTRAL NERVOUS SYSTEM: Cranial nerves II through XII grossly intact, nonfocal. EXTREMITIES: Right lower extremity chronic skin changes seen. Mild edema, no erythema seen. MUSCULOSKELETAL: Bilateral straight leg test negative. LABORATORY DATA: WBC is 9.5, hemoglobin 11.6, hematocrit 35.8, platelets 232. PT 10.1, INR 0.9. Sodium 135, potassium 3.5, chloride 104, CO2 22, BUN 27, creatinine 2.05. Serum glucose 442, calcium 8.1, ionized calcium 1.1, total bilirubin 0.3, AST 14, ALT 6, alkaline phosphatase 255. Troponin I high sensitivity 13.6, lipase 60. SARS-CoV-2 rapid test negative. IMAGING DATA: CT of abdomen and pelvis without contrast, no evidence of bowel obstruction, small diverticulosis without definite evidence for diverticulitis. No free peritoneal fluid or pneumoperitoneum. New fracture involving the L1 vertebral body involving the anterior cortex in the inferior endplate. No significant loss of height when compared to the previous exam. Stomach is moderately distended with fluid and gas and minimally retained oral contents. No gastric mucosal thickening or reflux into the distal thoracic esophagus, possible gastroparesis, chronic fractures involving the bilateral pedicles of L3 level. Chronic compression fractures noted from L2-L5 level, stable in appearance. EKG: AFib with a rate of 69, incomplete right bundle-branch block, left anterior fascicular block, rate of 69. ASSESSMENT AND PLAN: This is a 77-year-old female who presents with abdominal pain, also found to have L1 compression fracture. 1. Abdominal pain possibly coming from L1 compression fracture. The patient has no fall. The patient has history of chronic compression fractures also, pain control, gentle fluids for now. The patient has no nausea or vomiting. Question of gastroparesis. We will monitor in the hospital. 2. L1 compression fracture. Pain control. PT, OT. Consult Orthopedics a.m. 3. New atrial fibrillation?. We will monitor med tele. Will consult Cardiology and get an echocardiogram. 4. History of seizures. Continue her home medications. 5. History of diabetes. Blood sugars are running high. We will give a dose of IV insulin and place her on Lantus insulin sliding scale. Hold her home glipizide. 6. Acute kidney injury on chronic kidney disease, stage IV. Presently with a creatinine of 2, close to baseline. Baseline creatinine around 1.7 to 2. We will follow the repeat labs in the a.m. 7. Hypocalcemia. Continue her calcium supplements. We will follow the repeat labs. 8. History of cerebrovascular accident. On aspirin. 9. Deep venous thrombosis prophylaxis. Heparin subcutaneously for now. DISPOSITION: Closely monitor in the med tele. Code status, full code only if there is a chance of recovery. PT, OT prior to discharge. Social service to help with discharge planning. Job ID: [id number] [facility]
--- NOTE | 2023-01-02 07:59 | Electrocardiogram Report ---
Test Reason : Blood Pressure : / mmHG Vent. Rate : 069 BPM Atrial Rate : 075 BPM P-R Int : 000 ms QRS Dur : 104 ms QT Int : 416 ms P-R-T Axes : 000 -46 -49 degrees QTc Int : 445 ms Poor data quality, interpretation may be adversely affected Sinus rhythm Incomplete right bundle branch block Left anterior fascicular block Voltage criteria for left ventricular hypertrophy Old Anterior infarct (cited on or before 20-MAY-2022) Abnormal ECG When compared with ECG of 15-SEP-2022 18:28, Incomplete right bundle branch block is now Present Confirmed by Andre Waldrop ([id number]) on 01/02/2023 7:59:02 AM Referred By: REFERRED SELF Confirmed By:Andre Waldrop
[2023-01-02 08:59] LABS: Basophils # (auto) 0.04 K/uL (0-0.2); Basophils % (auto) 0.3 %; Eosinophils # (auto) 0.07 K/uL (0-0.50); Eosinophils % (auto) 0.6 %; Hematocrit (blood only) 41.6 % (37.0-47.0); Hemoglobin 13.6 g/dl (12.0-16.0); Immature Granulocytes # (auto) 0.06 K/uL (0.01-0.20); Immature Granulocytes % (auto) 0.5 %; Lymphocytes # (auto) 1.05 K/uL (1.2-3.4); Lymphocytes % (auto) 8.5 %; Mean Corpuscular Hemoglobin 31.2 pg (25.0-34.0); Mean Corpuscular Hgb Conc 32.7 g/dL (32.0-36.0); Mean Corpuscular Volume 95.4 fL (80.0-100.0); Mean Platelet Volume 9.3 fL (9.4-12.4); Monocytes # (auto) 0.55 K/uL (0.11-0.59); Monocytes % (auto) 4.4 %; Neutrophils % (auto) 85.7 %; Platelet Count 237 K/uL (130-400); RDW Coefficient of Variation 13.3 % (11.5-14.5); RDW Standard Deviation 47.3 fL (36.4-46.3); Red Blood Count 4.36 M/uL (4.20-5.40); White Blood Count 12.37 K/ul (4.8-10.8)
[2023-01-02] MEDS ORDERED: LANTUS PER UNIT CHARGE SQ SCH (09:00)
[2023-01-02] MEDS: LANTUS PER UNIT CHARGE SQ SCH (09:12)
[2023-01-02] MEDS: lamoTRIgine 100 MG TAB PO SCH ×2 (09:12→21:40)
[2023-01-02] MEDS: CALCIUM 600MG + VIT D 400 IU TAB PO SCH ×2 (09:12→09:14)
[2023-01-02] MEDS: INSULIN ASPART PER UNIT SC SCH ×4 (09:13→21:31)
[2023-01-02] MEDS: HEPARIN SOD 5,000 UNIT/0.5 ML VIAL SQ SCH ×2 (09:13→21:32)
[2023-01-02] MEDS: CEROVITE ADV FORMULA TAB PO SCH (09:13)
[2023-01-02] MEDS: ZONISAMIDE 100 MG CAPSULE PO SCH ×2 (09:14→21:40)
[2023-01-02] MEDS: ASCORBIC ACID 500 MG TAB PO SCH (09:15)
[2023-01-02] MEDS: CYANOCOBALAMIN (B-12) 500 MCG TABLET PO SCH (09:15)
[2023-01-02] MEDS: ASPIRIN 81 MG ECTAB PO SCH (09:15)
--- NOTE | 2023-01-02 09:17 | Hospitalist Progress Note ---
Date of Service January 02, 2023 Assessment & Plan (1) L1 vertebral fracture: Plan: -Ortho consulted -Inadequate pain control. Will place on acetaminophen 1000mg Q 8 hours, Lidoderm patch directly to area (if skin is intact), d/c IV dilaudid, start Dilaudid 1mg PO Q 6 PRN (patient with multiple medication intolerances which limit what she can be on, avoid tramadol due to her seizure disorder, no NSAIDs due to CKD) -Colace BID, miralax PRN (2) Seizure disorder: Plan: continue lamictal 100mg BID, zonisamide 200mg BID (3) Hyperglycemia: (4) PAD (peripheral artery disease): (5) CKD (chronic kidney disease) stage 4, GFR 15-29 ml/min: Plan: Cr 2 on admission which is within her baseline range of 1.8-2 (6) DM type 2 (diabetes mellitus, type 2): Plan: With hyperglycemia currently On Glipizide 5mg daily at home check HA1c Increase to Lantus 10mg SQ daily and Short acting insulin coverage. Further adjustments as needed (7) Carotid stenosis: Plan: History of left CEA On aspirin, not on statin for unclear reason. (8) Migraine: Plan: None currently (9) GERD (gastroesophageal reflux disease): Plan: No symptoms currently, Pepcid PRN as needed (10) Dyslipidemia: Plan: Not on statin therapy. Check Lipid panel tomorrow (11) Osteoarthritis: Plan: Continue Calcium/Vitamin D supplement with her multiple fractures, check Vitamin D levels in AM Plan DVT ppx--SQ heparin Leukocytosis -likely reactive. No fevers. Monitor for now Disposition--From home. Multiple falls and fractures. PT/OT ordered. Likely needs rehab Admission and Anticipated Discharge Date Admission Date: January 02, 2023 Subjective upset this morning and wanted to leave. Now agreeable to staying Reports she fell a couple of weeks ago. Here with abdominal pain which wraps around to the back. Received fentanyl in ER which helped and asking if she can get additional. History of multiple medication intollerance Also reports she has a right elbow fracture and she was supposed to have follow up but couldn't get to her appointment. She has not practiced any restrictions of that arm. Physical Exam Physical Exam: Sitting in chair, no acute distress, comfortable Respiratory: Breathing comfortably on room air, no wheezing/rhonchi/rales Cardiovascular: Regular rate and rhythm Gastrointestinal (Abdomen): soft, non tender Musculoskeletal: no edema Neurologic: awake, alert, spontaneously moving extremities Results & Data Results & Data ([facility]) Vital Signs (Past 12 Hours) Vital Signs Temp Pulse Pulse Resp BP BP Pulse Ox 01/02/23 08:06 36.5 C 66 18 170/74 H 96 01/02/23 07:48 79 01/02/23 03:48 36.5 C 66 20 170/74 H 96 01/02/23 03:45 65 01/02/23 00:14 84 17 107/80 97 01/01/23 22:24 81 01/01/23 22:49 93 01/01/23 22:19 36.7 C 75 18 170/80 H 93 O2 Del Method 01/02/23 08:06 Room Air 01/02/23 07:48 01/02/23 03:48 Room Air 01/02/23 03:45 01/02/23 00:14 Room Air 01/01/23 22:24 01/01/23 22:49 Room Air 01/01/23 22:19 Room Air (6) DM type 2 (diabetes mellitus, type 2) Diabetes mellitus complication status: without complication Diabetes mellitus detention insulin use: without adjunct faculty for medical terminology use Qualified Code(s): E11.9 - Type 2 diabetes mellitus without complications
[2023-01-02 09:35] LABS: BUN Creatinine Ratio 14.1 (10-20); Calcium 9.1 mg/dl (8.5-10.1); Est GFR (African American) 30.3 ml/min; Est GFR (Non-African American) 26.2 ml/min; Magnesium 1.7 mg/dl (1.7-2.4); Potassium 3.9 mmol/L (3.5-5.1)
[2023-01-02 09:40] LABS: Troponin I High Sensitivity 15.4 pg/ml (0-14)
[2023-01-02 09:48] LABS: Thyroid Stimulating Hormone 5.865 uIu/ml (0.300-4.500)
[2023-01-02] MEDS: LIDOCAINE 5% 1 PATCH TD SCH (09:53)
[2023-01-02 10:23] LABS: T4 Free Thyroxine 0.71 ng/dl (0.61-1.60)
--- NOTE | 2023-01-02 10:47 | XRay Report ---
XR elbow RT min 3V routine CLINICAL HISTORY: f/u fracture TECHNIQUE: 3 views of the right elbow were obtained. Comparison: Comparison is made to a radiograph 11/20/2022 FINDINGS: There is no evidence of an acute fracture. Extensive degenerative changes are seen. There is suggesti on of a small anterior joint effusion with displacement of the fat pad. This is less conspicuous on p rior exam. Soft tissue swelling is seen about the elbow. IMPRESSION: No evidence of acute fracture. There is however a suggestion of a tiny joint effusion, decreased in s ize from prior exam. Degenerative changes are seen. ACT 112: Negative or not required by law. Electronically signed by: Ehsan Cates M.D. 01/02/2023 10:44 AM
[2023-01-02] MEDS: HYDROmorphone HCL 2 MG TAB PO PRN ×2 (11:23→21:30)
[2023-01-02] MEDS: ONDANSETRON INJ 2 MG/ML 2 ML VIAL IV PRN ×2 (12:19→21:31)
--- NOTE | 2023-01-02 13:04 | Electrocardiogram Report ---
Test Reason : Blood Pressure : / mmHG Vent. Rate : 090 BPM Atrial Rate : 090 BPM P-R Int : 130 ms QRS Dur : 102 ms QT Int : 378 ms P-R-T Axes : 039 -50 039 degrees QTc Int : 462 ms Sinus rhythm with occasional Premature ventricular complexes and Premature atrial complexes Left axis deviation Voltage criteria for left ventricular hypertrophy Possible Old Anterior infarct Septal infarct (cited on or before 20-MAY-2022) Abnormal ECG When compared with ECG of 01-JAN-2023 22:13, Premature ventricular complexes are now Present Premature atrial complexes are now Present Incomplete right bundle branch block is no longer Present Confirmed by Andre Waldrop ([id number]) on 01/02/2023 1:03:48 PM Referred By: REFERRED SELF Confirmed By:Andre Waldrop
[2023-01-02] MEDS: ACETAMINOPHEN 500 MG TAB PO SCH ×2 (14:06→21:32)
[2023-01-02] MEDS: DOCUSATE SODIUM 100 MG CAP PO SCH (21:40)
[2023-01-03 00:05] LABS: Appearance Urine Clear (Clear); Bacteria Urine Automated 1+ (Negative); Bilirubin Urine Negative (Negative); Blood Urine Negative (Negative); Color Urine Yellow; Epithelial Cell Urine Auto >30 /lpf (0-5); Glucose Urine UA Negative (Negative); Ketones Urine Negative (Negative); Leukocyte Esterase Urine Negative (Negative); Nitrite Urine Negative (Negative); Protein Urine 3+ (Negative); RBC Urine Automated 0-4 /hpf (0-4); Specific Gravity Urine 1.028 (1.000-1.030); Urobilinogen Urine Negative (Negative); pH Urine 5.5 (4.5-7.5)
[2023-01-03] MEDS: HYDROmorphone HCL 2 MG TAB PO PRN ×2 (03:56→23:28)
[2023-01-03] MEDS: ACETAMINOPHEN 500 MG TAB PO SCH ×3 (05:21→20:28)
[2023-01-03 06:14] LABS: Basophils # (auto) 0.04 K/uL (0-0.2); Basophils % (auto) 0.3 %; Eosinophils # (auto) 0.02 K/uL (0-0.50); Eosinophils % (auto) 0.1 %; Hemoglobin 12.9 g/dl (12.0-16.0); Immature Granulocytes # (auto) 0.09 K/uL (0.01-0.20); Immature Granulocytes % (auto) 0.6 %; Lymphocytes # (auto) 1.07 K/uL (1.2-3.4); Lymphocytes % (auto) 7.5 %; Mean Corpuscular Hemoglobin 31.1 pg (25.0-34.0); Mean Corpuscular Hgb Conc 33.1 g/dL (32.0-36.0); Mean Platelet Volume 9.8 fL (9.4-12.4); Monocytes # (auto) 0.72 K/uL (0.11-0.59); Monocytes % (auto) 5.1 %; Neutrophils # (auto) 12.29 K/uL (1.40-6.50); Neutrophils % (auto) 86.4 %; Platelet Count 227 K/uL (130-400); RDW Coefficient of Variation 13.3 % (11.5-14.5); RDW Standard Deviation 45.9 fL (36.4-46.3); Red Blood Count 4.15 M/uL (4.20-5.40); White Blood Count 14.23 K/ul (4.8-10.8)
[2023-01-03 06:32] LABS: BUN Creatinine Ratio 15.3 (10-20); Calcium 9.5 mg/dl (8.5-10.1); Creatinine Clr Calc Pharmacy 25.1 ml/min; Est GFR (Non-African American) 27.6 ml/min; Magnesium 1.6 mg/dl (1.7-2.4)
[2023-01-03] MEDS: DOCUSATE SODIUM 100 MG CAP PO SCH ×2 (07:44→20:28)
[2023-01-03] MEDS: ASPIRIN 81 MG ECTAB PO SCH (07:44)
[2023-01-03] MEDS: lamoTRIgine 100 MG TAB PO SCH ×2 (07:44→20:28)
[2023-01-03] MEDS: ZONISAMIDE 100 MG CAPSULE PO SCH ×2 (07:44→20:28)
[2023-01-03] MEDS: LIDOCAINE 5% 1 PATCH TD SCH (07:45)
[2023-01-03] MEDS: ASCORBIC ACID 500 MG TAB PO SCH (07:56)
[2023-01-03] MEDS: CEROVITE ADV FORMULA TAB PO SCH (07:57)
[2023-01-03] MEDS: CYANOCOBALAMIN (B-12) 500 MCG TABLET PO SCH (07:58)
[2023-01-03] MEDS: HEPARIN SOD 5,000 UNIT/0.5 ML VIAL SQ SCH ×2 (08:07→20:28)
[2023-01-03] MEDS ORDERED: MAGNESIUM SULFATE / D5W 1 GM/100 ML BAG IV ONE (08:15)
[2023-01-03] MEDS: INSULIN ASPART PER UNIT SC SCH ×4 (09:10→20:29)
[2023-01-03] MEDS: LANTUS PER UNIT CHARGE SQ SCH (09:11)
[2023-01-03] MEDS: cefTRIAXone SODIUM 2,000 MG in DEXTROSE 5% 50 ML IV SCH (09:44)
--- NOTE | 2023-01-03 09:48 | Orthopedic Consultation ---
Date of Consultation January 03, 2023 Assessment & Plan (1) L1 vertebral fracture: This time she had difficulties with an MRI. We will stop this order at this time. I would like to obtain basic lumbar x-rays to assess her alignment. We will attempt bracing however this may be limited secondary to her body habitus. Ultimately she might be a candidate for rehab. History of Present Illness Reason for Consultation: Lumbar compression fracture Attending Physician: Oriana Johnson MD History of Present Illness This is a very pleasant 77-year-old female that presents with evidence of new compression fracture of L1. This morning she is in the chair at the bedside. She states transfers to the chair quite uncomfortable. She did attempt an MRI but was unable to lie still secondary to significant axial back pain. This morning she denies any leg pain or strength deficits in the lower extremities. Allergies Allergy/AdvReac Type Severity Reaction Status Date / Time omeprazole Allergy Severe throat Verified 11/28/22 02:26 swelling alendronate sodium Allergy Unknown GI SYMPTOMS Verified 11/28/22 02:26 oxytocin Allergy Unknown Nausea and Verified 11/28/22 02:26 vomiting pioglitazone Allergy Unknown Edema BLE Verified 11/28/22 02:26 prednisone Allergy Unknown Nausea and Verified 11/28/22 02:26 vomiting risedronate sodium Allergy Unknown Headache Verified 11/28/22 02:26 and weakness sitagliptin Allergy Unknown Itching Verified 11/28/22 02:26 valproic acid Allergy Unknown Affected Verified 11/28/22 02:26 her memory divalproex sodium Allergy Unknown Verified 11/28/22 02:26 [From Depakote] fluoxetine [From Prozac] Allergy Unknown Verified 11/28/22 02:26 codeine AdvReac Unknown NAUSEA/VOMI Verified 11/28/22 02:26 TING morphine AdvReac Unknown nausea/vomi Verified 11/28/22 02:26 ting oxycodone AdvReac Unknown nausea/vomi Verified 11/28/22 02:26 ting Home Medications Medication Instructions Recorded Confirmed Type Shower Chair #1 ea 06/03/20 01/02/23 Rx acetaminophen 650 mg 650 mg PO Q8H PRN Pain 05/19/22 01/02/23 History tablet,extended release (Tylenol 8 Hour) ascorbic acid (vitamin C) 1,000 mg 1,000 mg PO QAM 05/19/22 01/02/23 History tablet (Vitamin C) cyanocobalamin (vitamin B-12) 500 500 mcg PO QAM 05/19/22 01/02/23 History mcg tablet vit C 250 mg-vit E 90 mg-zinc 40 1 tab PO DAILY 05/19/22 01/02/23 History mg-copper 1 is-[id number] capsule (PreserVision AREDS-2) aspirin 81 mg tablet,delayed 81 mg PO QAM #30 tabs 06/08/22 01/02/23 Rx release glipizide 5 mg tablet 5 mg PO DAILY@0730 #30 tabs 06/08/22 01/02/23 Rx calcium carbonate 600 mg-vitamin 2 tab PO DAILY 11/28/22 01/02/23 History D3 10 mcg (400 unit) tablet (Calcium 600 + D(3)) bisacodyl 10 mg rectal suppository 10 mg NE UD 01/02/23 01/02/23 History lamotrigine 100 mg tablet 100 mg PO BID 01/02/23 01/02/23 History (Lamictal) polyethylene glycol 3350 17 17 g PO DAILY PRN Constipation 01/02/23 01/02/23 History gram/dose oral powder (ClearLax) zonisamide 100 mg capsule 200 mg PO BID 01/02/23 01/02/23 History (Zonegran) Patient History Medical History Ankylosing spondylitis Asymptomatic hyperuricemia Bilateral edema of lower extremity Carotid stenosis Cellulitis Cerebrovascular disease, arteriosclerotic, post-stroke Chronic lower back pain Chronic reflux esophagitis CKD (chronic kidney disease), stage III DM type 2 (diabetes mellitus, type 2) Dyslipidemia Elevated blood pressure reading in office without diagnosis of hypertension Epilepsy 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 GERD (gastroesophageal reflux disease) Hypotension Hypothyroidism Intertrochanteric fracture of right hip (07/18/14) Migraine Osteoarthritis Osteoarthritis of shoulder Osteoporosis, senile PAD (peripheral artery disease) Rhabdomyolysis Rhabdomyolysis Screening for skin condition Stasis dermatitis Venous stasis ulcer of right lower extremity Vertebral fracture, osteoporotic Surgical History H/O total knee replacement History of bilateral knee replacement History of left-sided carotid endarterectomy S/P cholecystectomy S/P rotator cuff repair Family History Mother Transitional cell carcinoma of bladder Diabetes Cardiac disorder Hypertension Ovarian cancer Grandmother Cancer Uncle Cancer Father Cardiac disorder Hypertension Asthma Social History Smoking Status: Never smoker Second Hand Exposure: No; Do You Dip or Chew Tobacco: No; Tobacco Cessation Education Requested by Patient: No Hx Alcohol Use: No Hx Substance Use: No Preferred Language: Danish Communication Ability: Effective 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 She is comfortable in a still position. She is reasonable plantar flexion dorsiflexion sensory intact bilateral extremities. Results & Data ([facility]) Vital Signs (Past 12 Hours) Vital Signs Temp Pulse Pulse Resp BP BP Pulse Ox 01/03/23 07:23 36.8 C 64 18 138/73 94 01/03/23 03:30 36.6 C 80 20 174/94 H 100 01/02/23 23:20 36.7 C 68 20 127/65 95 01/02/23 23:29 82 O2 Del Method 01/03/23 07:23 Room Air 01/03/23 03:30 Room Air 01/02/23 23:20 Room Air 01/02/23 23:29
[2023-01-03] MEDS: SACCHAROMYCES BOULARDII 250 MG CAP PO SCH (10:41)
[2023-01-03] MEDS: CHOLECALCIFEROL 5,000 UNITS 125 MCG TAB PO SCH (10:41)
--- NOTE | 2023-01-03 10:45 | XRay Report ---
XR lumbar spine 2-3V HISTORY: 77 years-old Female lumbar fracture acute low back pain COMPARISON: CT abdomen and pelvis 01/02/2023, 09/15/2022 TECHNIQUE: 3 views of the lumbar spine FINDINGS: Demineralized appearance of the bones. Chronic T12-L5 superior endplate compression deformities. Ther e is an acute transversely oriented mid vertebral body fracture of the L1 segment with extension to t he inferior endplate. Healing subacute nondisplaced fractures of the L3 pedicles. The study is limite d secondary to positioning. Hip arthroplasty. Multilevel intervertebral disc space narrowing with spo ndylitic spurring and facet arthrosis redemonstrated. IMPRESSION: 1. The acute on chronic L1 compression deformity without retropulsion and healing subacute L3 pedicle fractures are better visualized on yesterday's CT abdomen and pelvis. 2. Chronic lumbar compression deformities redemonstrated. ACT 112: Negative or not required by law. The above report was generated using voice recognition software. It may contain grammatical, syntax o r spelling errors. Electronically signed by: Adan Angel M.D. 01/03/2023 10:43 AM
--- NOTE | 2023-01-03 15:40 | Hospitalist Progress Note ---
Date of Service January 03, 2023 Assessment & Plan (1) L1 vertebral fracture: Plan: -Ortho consulted. appreciate input -Patient unable to lay flat for MRI. Lumbar X rays ordered today by ortho. Will attempt brace, orthotics ordered -Continue acetaminophen 1000mg Q 8 hours, Lidoderm patch directly to area (if skin is intact), Dilaudid 1mg PO Q 6 PRN (patient with multiple medication intolerances which limit what she can be on, avoid tramadol due to her seizure d isorder, no NSAIDs due to CKD) -Colace BID, miralax PRN -vitamin D levels low, supplement ordered (2) Seizure disorder: Plan: continue lamictal 100mg BID, zonisamide 200mg BID (3) Hyperglycemia: (4) PAD (peripheral artery disease): (5) CKD (chronic kidney disease) stage 4, GFR 15-29 ml/min: Plan: Cr 2 on admission which is within her baseline range of 1.8-2 Cr improving (6) DM type 2 (diabetes mellitus, type 2): Plan: With hyperglycemia currently On Glipizide 5mg daily at home HA1c pending Continue Lantus 10mg SQ daily and Short acting insulin coverage. Further adjustments as needed (7) Carotid stenosis: Plan: History of left CEA On aspirin, not on statin for unclear reason. (8) Migraine: Plan: None currently (9) GERD (gastroesophageal reflux disease): Plan: No symptoms currently, Pepcid PRN as needed (10) Dyslipidemia: Plan: Not on statin therapy. Check Lipid panel (11) Osteoarthritis: Plan: Previously on Calcium/Vitamin D supplement Vitamin D low, supplement dose increased Plan DVT ppx--SQ heparin Leukocytosis -likely reactive. No fevers. Monitor for now Disposition--From home. Multiple falls and fractures. Evaluated by PT, rehab recommended Admission and Anticipated Discharge Date Admission Date: January 02, 2023 Subjective Patient with back pain, she is comfortable when she is sitting in the chair but reports pain is worsened when she lays in bed. So she slept in the chair last night (at home was sleeping in a recliner) Physical Exam Physical Exam: Sitting in chair, multiple blankets on including one that is wrapped over her head like a shawl, no acute distress Respiratory: Breathing breathing comfortably on room air, no wheezing/rhonchi Cardiovascular: Regular rate and rhythm, no murmurs/rubs/gallops Gastrointestinal (Abdomen): Soft, non tender, non distended Musculoskeletal: trace edema Skin: venous stasis skin changes Neurologic: awake, alert, spontaneously moving extremities Results & Data Results & Data ([facility]) Vital Signs (Past 12 Hours) Vital Signs Temp Pulse Resp BP BP Pulse Ox O2 Del Method 01/03/23 11:19 36.5 C 65 18 108/70 96 Room Air 01/03/23 07:23 36.8 C 64 18 138/73 94 Room Air (6) DM type 2 (diabetes mellitus, type 2) Diabetes mellitus complication status: without complication Diabetes mellitus nursing home insulin use: without intermediate manager use Qualified Code(s): E11.9 - Type 2 diabetes mellitus without complications
[2023-01-03] MEDS: ONDANSETRON INJ 2 MG/ML 2 ML VIAL IV PRN ×2 (16:06→23:56)
[2023-01-04] MEDS: ACETAMINOPHEN 500 MG TAB PO SCH ×3 (05:26→22:00)
[2023-01-04] MEDS: INSULIN ASPART PER UNIT SC SCH ×4 (08:21→22:21)
[2023-01-04] MEDS: DOCUSATE SODIUM 100 MG CAP PO SCH ×2 (08:22→22:22)
[2023-01-04] MEDS: ZONISAMIDE 100 MG CAPSULE PO SCH ×2 (08:22→22:23)
[2023-01-04] MEDS: CEROVITE ADV FORMULA TAB PO SCH (08:22)
[2023-01-04] MEDS: CYANOCOBALAMIN (B-12) 500 MCG TABLET PO SCH ×2 (08:23→09:28)
[2023-01-04] MEDS: CHOLECALCIFEROL 5,000 UNITS 125 MCG TAB PO SCH (08:23)
[2023-01-04] MEDS: ASPIRIN 81 MG ECTAB PO SCH (08:23)
[2023-01-04] MEDS: ASCORBIC ACID 500 MG TAB PO SCH ×2 (08:23→09:27)
[2023-01-04] MEDS: lamoTRIgine 100 MG TAB PO SCH ×2 (08:23→22:23)
[2023-01-04] MEDS: SACCHAROMYCES BOULARDII 250 MG CAP PO SCH (08:23)
[2023-01-04] MEDS: LIDOCAINE 5% 1 PATCH TD SCH (08:24)
[2023-01-04] MEDS: LANTUS PER UNIT CHARGE SQ SCH (08:53)
[2023-01-04] MEDS: HEPARIN SOD 5,000 UNIT/0.5 ML VIAL SQ SCH ×2 (09:26→22:22)
[2023-01-04] MEDS: cefTRIAXone SODIUM 2,000 MG in DEXTROSE 5% 50 ML IV SCH (09:26)
[2023-01-04] MEDS: ONDANSETRON INJ 2 MG/ML 2 ML VIAL IV PRN (09:27)
[2023-01-04 10:24] LABS: Estimated Average Glucose 235 mg/dl; Hemoglobin A1C 9.8 % (4.5-5.6)
[2023-01-04 10:55] LABS: Basophils # (auto) 0.03 K/uL (0-0.2); Basophils % (auto) 0.3 %; Hematocrit (blood only) 37.8 % (37.0-47.0); Hemoglobin 12.4 g/dl (12.0-16.0); Immature Granulocytes # (auto) 0.05 K/uL (0.01-0.20); Immature Granulocytes % (auto) 0.5 %; Lymphocytes # (auto) 1.51 K/uL (1.2-3.4); Lymphocytes % (auto) 14.8 %; Mean Corpuscular Hemoglobin 31.2 pg (25.0-34.0); Mean Corpuscular Hgb Conc 32.8 g/dL (32.0-36.0); Mean Corpuscular Volume 95.2 fL (80.0-100.0); Mean Platelet Volume 9.3 fL (9.4-12.4); Monocytes # (auto) 0.74 K/uL (0.11-0.59); Monocytes % (auto) 7.2 %; Neutrophils # (auto) 7.79 K/uL (1.40-6.50); Neutrophils % (auto) 76.2 %; Platelet Count 228 K/uL (130-400); RDW Coefficient of Variation 13.4 % (11.5-14.5); RDW Standard Deviation 47.3 fL (36.4-46.3); Red Blood Count 3.97 M/uL (4.20-5.40); White Blood Count 10.22 K/ul (4.8-10.8)
[2023-01-04 11:10] LABS: BUN Creatinine Ratio 15.7 (10-20); Calcium 9.1 mg/dl (8.5-10.1); Chol HDL Ratio 3.3 (0-5); Creatinine Clr Calc Pharmacy 20.3 ml/min; Est GFR (African American) 24.8 ml/min; Est GFR (Non-African American) 21.4 ml/min; Magnesium 1.8 mg/dl (1.7-2.4); Potassium 4.2 mmol/L (3.5-5.1)
[2023-01-04] MEDS: HYDROmorphone HCL 2 MG TAB PO PRN ×2 (13:30→21:48)
--- NOTE | 2023-01-04 16:46 | Hospitalist Progress Note ---
Date of Service January 04, 2023 Assessment & Plan (1) L1 vertebral fracture: Plan: -Ortho consulted. appreciate input -Patient unable to lay flat for MRI. Lumbar X rays ordered by ortho. She was also fitted with brace -Continue acetaminophen 1000mg Q 8 hours, Lidoderm patch directly to area (if skin is intact), Dilaudid 1mg PO Q 6 PRN (patient with multiple medication intolerances which limit what she can be on, avoid tramadol due to her seizure disorder, no NSAIDs due to CKD) -Colace BID, miralax PRN -vitamin D levels low, supplement ordered -Patient declines rehab, wants to return home, agreeable to PT (2) Seizure disorder: Plan: continue lamictal 100mg BID, zonisamide 200mg BID (3) Hyperglycemia: (4) PAD (peripheral artery disease): (5) CKD (chronic kidney disease) stage 4, GFR 15-29 ml/min: Plan: Cr 2 on admission which is within her baseline range of 1.8-2 Cr stable (6) DM type 2 (diabetes mellitus, type 2): Plan: With hyperglycemia currently On Glipizide 5mg daily at home HA1c pending Continue Lantus 10mg SQ daily and Short acting insulin coverage. Further adjustments as needed (7) Carotid stenosis: Plan: History of left CEA On aspirin, not on statin for unclear reason. (8) Migraine: Plan: None currently (9) GERD (gastroesophageal reflux disease): Plan: No symptoms currently, Pepcid PRN as needed (10) Dyslipidemia: Plan: Not on statin therapy TG elevated, will discuss with patient about starting statin therapy (11) Osteoarthritis: Plan: Previously on Calcium/Vitamin D supplement Vitamin D low, supplement dose increased Plan DVT ppx--SQ heparin Leukocytosis -likely reactive. No fevers. Monitor for now Disposition--From home. Multiple falls and fractures. Evaluated by PT, rehab recommended but patient declines and wants to return home. Will plan for PT. Discharge tomorrow Admission and Anticipated Discharge Date Admission Date: January 02, 2023 Subjective Does not want SNF or acute rehab. Wants to return home because she is more comfortable at home. Agreeable for hHPT. She walking to restroom with her walker Physical Exam Physical Exam: Sitting in chair, no acute distress Respiratory: Breathing comfortably on room air, no wheezing/rhonchi Cardiovascular: regular rate and rhythm, no murmurs/rubs Gastrointestinal (Abdomen): soft, non tender, non distended Musculoskeletal: trace edema Skin: chronic venous stasis skin changes Results & Data Results & Data ([facility]) Vital Signs (Past 12 Hours) Vital Signs Temp Pulse Pulse Resp BP Pulse Ox O2 Del Method 01/04/23 16:27 71 01/04/23 15:46 36.7 C 73 18 119/77 99 Room Air 01/04/23 11:22 36.6 C 68 16 128/53 L 100 Room Air 01/04/23 10:12 65 01/04/23 07:30 36.4 C L 64 18 135/67 92 Room Air (6) DM type 2 (diabetes mellitus, type 2) Diabetes mellitus complication status: without complication Diabetes mellitus long term care phlebotomist insulin use: without long term care phlebotomist use Qualified Code(s): E11.9 - Type 2 diabetes mellitus without complications
[2023-01-05] MEDS: ACETAMINOPHEN 500 MG TAB PO SCH ×2 (05:57→13:22)
[2023-01-05] MEDS: ZONISAMIDE 100 MG CAPSULE PO SCH (07:55)
[2023-01-05] MEDS: SACCHAROMYCES BOULARDII 250 MG CAP PO SCH (07:55)
[2023-01-05] MEDS: ASPIRIN 81 MG ECTAB PO SCH (07:55)
[2023-01-05] MEDS: CHOLECALCIFEROL 5,000 UNITS 125 MCG TAB PO SCH (07:56)
[2023-01-05] MEDS: CYANOCOBALAMIN (B-12) 500 MCG TABLET PO SCH (07:56)
[2023-01-05] MEDS: LIDOCAINE 5% 1 PATCH TD SCH (07:56)
[2023-01-05] MEDS: DOCUSATE SODIUM 100 MG CAP PO SCH (07:56)
[2023-01-05] MEDS: LANTUS PER UNIT CHARGE SQ SCH (07:57)
[2023-01-05] MEDS: INSULIN ASPART PER UNIT SC SCH ×2 (07:57→12:00)
[2023-01-05] MEDS: ASCORBIC ACID 500 MG TAB PO SCH (07:58)
[2023-01-05] MEDS: CEROVITE ADV FORMULA TAB PO SCH (07:58)
[2023-01-05] MEDS: lamoTRIgine 100 MG TAB PO SCH (07:58)
[2023-01-05] MEDS: HEPARIN SOD 5,000 UNIT/0.5 ML VIAL SQ SCH (08:07)
[2023-01-05] MEDS: cefTRIAXone SODIUM 2,000 MG in DEXTROSE 5% 50 ML IV SCH (08:10)
[2023-01-05 10:05] LABS: Basophils # (auto) 0.03 K/uL (0-0.2); Basophils % (auto) 0.4 %; Eosinophils # (auto) 0.14 K/uL (0-0.50); Eosinophils % (auto) 1.6 %; Hematocrit (blood only) 33.6 % (37.0-47.0); Hemoglobin 11.3 g/dl (12.0-16.0); Immature Granulocytes # (auto) 0.04 K/uL (0.01-0.20); Immature Granulocytes % (auto) 0.5 %; Lymphocytes # (auto) 1.14 K/uL (1.2-3.4); Lymphocytes % (auto) 13.3 %; Mean Corpuscular Hemoglobin 31.3 pg (25.0-34.0); Mean Corpuscular Hgb Conc 33.6 g/dL (32.0-36.0); Mean Corpuscular Volume 93.1 fL (80.0-100.0); Mean Platelet Volume 9.5 fL (9.4-12.4); Monocytes # (auto) 0.76 K/uL (0.11-0.59); Monocytes % (auto) 8.9 %; Neutrophils # (auto) 6.46 K/uL (1.40-6.50); Neutrophils % (auto) 75.3 %; Platelet Count 250 K/uL (130-400); RDW Coefficient of Variation 13.4 % (11.5-14.5); RDW Standard Deviation 45.9 fL (36.4-46.3); Red Blood Count 3.61 M/uL (4.20-5.40); White Blood Count 8.57 K/ul (4.8-10.8)
[2023-01-05 10:31] LABS: Calcium 8.7 mg/dl (8.5-10.1); Creatinine Clr Calc Pharmacy 20.3 ml/min; Est GFR (African American) 24.7 ml/min; Est GFR (Non-African American) 21.3 ml/min; Potassium 4.1 mmol/L (3.5-5.1)
--- NOTE | 2023-01-05 14:03 | Discharge Summary ---
Date of Service January 05, 2023 Principal Diagnosis L1 compression fracture Type 2 DM with hyperglycemia Vitamin D deficiency Discharge Exam Sitting in chair, no acute distress, refused medications since last night Respiratory Breathing comfortably on room air, no wheezing/rhonchi/rales Cardiovascular Regular rate and rhythm, no murmurs Gastrointestinal (Abdomen) soft, non tender Neurologic awake, alert, has been ambulating to restroom with her walker Discharge Data Allergies Allergy/AdvReac Type Severity Reaction Status Date / Time omeprazole Allergy Severe throat Verified 11/28/22 02:26 swelling alendronate sodium Allergy Unknown GI SYMPTOMS Verified 11/28/22 02:26 oxytocin Allergy Unknown Nausea and Verified 11/28/22 02:26 vomiting pioglitazone Allergy Unknown Edema BLE Verified 11/28/22 02:26 prednisone Allergy Unknown Nausea and Verified 11/28/22 02:26 vomiting risedronate sodium Allergy Unknown Headache Verified 11/28/22 02:26 and weakness sitagliptin Allergy Unknown Itching Verified 11/28/22 02:26 valproic acid Allergy Unknown Affected Verified 11/28/22 02:26 her memory divalproex sodium Allergy Unknown Verified 11/28/22 02:26 [From Depakote] fluoxetine [From Prozac] Allergy Unknown Verified 11/28/22 02:26 codeine AdvReac Unknown NAUSEA/VOMI Verified 11/28/22 02:26 TING morphine AdvReac Unknown nausea/vomi Verified 11/28/22 02:26 ting oxycodone AdvReac Unknown nausea/vomi Verified 11/28/22 02:26 ting Consultations 01/02/23 01:22 ED Decision to Admit Stat 01/02/23 09:00 Consult Orthopedic Surgery Routine Ordered Studies 01/01/23 22:49 CT Abd and Pelvis [CT abd pelvis wo con] Stat Hospital Course (1) L1 vertebral fracture: -Evaluated by ortho while here -Patient unable to lay flat for MRI. She was fitted for a brace here and should use it when not in bed. -Continue acetaminophen 1000mg Q 8 hours, Lidoderm patch directly to area (if skin is intact), Dilaudid 1mg PO Q 6 PRN (patient with multiple medication intolerances which limit what she can be on, avoid tramadol due to her seizure disorder, no NSAIDs due to CKD) -Colace BID, miralax PRN -vitamin D levels low, supplement ordered -Patient declines rehab, wants to return home, agreeable to PT (2) Seizure disorder: continue lamictal 100mg BID, zonisamide 200mg BID (3) Hyperglycemia: (4) PAD (peripheral artery disease): (5) CKD (chronic kidney disease) stage 4, GFR 15-29 ml/min: Cr 2 on admission which is within her baseline range of 1.8-2 Cr stable (6) DM type 2 (diabetes mellitus, type 2): On basal/bolus insulin here Resume glipizide at dischrge (7) Carotid stenosis: History of left CEA On aspirin (8) Migraine: None currently (9) GERD (gastroesophageal reflux disease): No symptoms currently, Pepcid PRN as needed (10) Dyslipidemia: Not on statin therapy previously, defer this discussion to patient's PCP (11) Osteoarthritis: Previously on Calcium/Vitamin D supplement Vitamin D low, supplement dose increased Plan DVT ppx--SQ heparin Leukocytosis -likely reactive. UA abnormal, patient placed on ceftriaxone and urine culture negative. Further antibiotics discontinued Patient intermittently compliant here, on day preceding discharge began refusing her medications. She was fitted for a brace but not wearing it. She is ambulating to the rest room using her rolling walker. She is stable for discharge and will need to follow up with her PCP for management of her chronic medical conditions. Needs to follow up with Dr Vazquez for her compression fracture. Home Health Attestation I certify that this patient is under my care and that I, or a physicians medical research assistant working with me, had a face to-face encounter that meets the home health [id number] encounter requirements with this patient. The encounter with the patient was in whole, or in part, for the following medical condition, which is the primary reason for home health care (list medical condition): I certify that, based on my findings, the following services are medically necessary home health services: My clinical findings support the need for the above services because: PT Eval for Safety, Gait Training, Assistive Devices Further, I certify that my clinical findings support that this patient is homebound (i.e. absences from home require considerable and taxing effort and are for medical reasons or mosque services or infrequently or of short duration when for other reasons) because: Supportive Aid - Wheelchair Certification for Home Health Services: Based on the above findings, I certify that this patient is confined to the home and needs intermittent long term care, physical therapy and/or speech therapy or continues to need occupational therapy. The patient is under my care, and I have initiated the establishment of the plan of care. This patient will be followed by a physician who will periodically review the plan of care. Total Time Total Time Spent Total Time Spent (In Minutes): 40 Discharge Plan Discharge Items Patient Disposition: Home - Home Health Services Reason For Visit: ABDOMINAL PAIN Discharge Diagnosis: L1 compression fracture Type 2 DM with hyperglycemia Vitamin D deficiency Condition on Discharge: Fair Activity: As commented below Lifting: No more than 5 pounds Exercise Comment: Wear back brace when not in bed Non-emergency contact: Primary Care Provider and Surgeon Call non-emergency contact if: you have any medication questions and your symptoms worsen Follow-up/Referrals: Cholo Vazquez DO [Surgeon] - Franklyn Hood, [Primary Care Provider] - (Date & Time 01/07/2023 3:00 PM Provider Janelle Rhodes PA-C Department [facility] ) Diet: Carb Consistent or DM2 and Heart Healthy Addtl Attending Provider Instructions: Please follow up with Dr Vazquez for your L1 compression fracture Please follow up with your family doctor in 1-2 weeks after discharge for after discharge care Pending Studies at Discharge: No Stand-Alone Forms: My [facility] [employer], Smoking Cessation Medications and DC Order Prescriptions: New lidocaine 5 % Adhesive Patch,Medicated 1 patch transdermal QAM Qty: 15 0RF Rx Instructions: Apply to area of most pain. do NOT apply on broken skin cholecalciferol (vitamin D3) 125 mcg (5,000 unit) Tablet 5,000 unit PO QAM Qty: 30 0RF hydromorphone [Dilaudid] 2 mg tablet 1 mg PO Q6H PRN (Reason: pain) Qty: 10 0RF Continued (DME) Shower Chair Misc See Rx Instructions .ROUTE .MEDSUPPLY Qty: 1 0RF Rx Instructions: As directed ascorbic acid (vitamin C) [Vitamin C] 1,000 mg Tablet 1,000 mg PO QAM cyanocobalamin (vitamin B-12) 500 mcg Tablet 500 mcg PO QAM acetaminophen [Tylenol 8 Hour] 650 mg Tablet Extended Release 650 mg PO Q8H PRN (Reason: Pain) PreserVision AREDS-2 250-90-40-1 mg Capsule 1 tab PO DAILY glipizide 5 mg Tablet 5 mg PO DAILY@0730 Qty: 30 0RF aspirin 81 mg Tablet,Delayed Release (Dr/Ec) 81 mg PO QAM Qty: 30 0RF bisacodyl 10 mg suppository 10 mg GA UD polyethylene glycol 3350 [ClearLax] 17 gram/dose powder 17 g PO DAILY PRN (Reason: Constipation) Rx Instructions: mix in 8 oz of liquid zonisamide [Zonegran] 100 mg capsule 200 mg PO BID lamotrigine [Lamictal] 100 mg tablet 100 mg PO BID Discontinued calcium carbonate-vitamin D3 [Calcium 600 + D(3)] 600 mg-10 mcg (400 unit) Tablet 2 tab PO DAILY Discharge Orders: Discharge Order (Routine); Ordered 01/05/23 Ordered By: Oriana Johnson Admission Data Admit Date/Time: 01/02/23 02:14 Attending Provider: Oriana Johnson Admit Provider: Lenny Hanks Primary Care Provider: Franklyn Hood Other Providers: Lenny Hanks ; Cholo Vazquez ; [facility]
== END 2023-01-05 16:53 | disposition home health service (06) | DRG 543 ==
LOC: ED 22:08 → INTOOBSV 01-02 02:14 → 2N 01-02 02:14
DX: M80.08XA Age-related osteoporosis with current pathological fracture, vertebra(e), initial encounter for fracture; Z86.16 Personal history of COVID-19; Z88.5 Allergy status to narcotic agent; E11.65 Type 2 diabetes mellitus with hyperglycemia; N39.0 Urinary tract infection, site not specified; I73.9 Peripheral vascular disease, unspecified; Z79.82 Long term (current) use of aspirin; N18.4 Chronic kidney disease, stage 4 (severe); E11.51 Type 2 diabetes mellitus with diabetic peripheral angiopathy without gangrene; E11.22 Type 2 diabetes mellitus with diabetic chronic kidney disease; E55.9 Vitamin D deficiency, unspecified; I65.29 Occlusion and stenosis of unspecified carotid artery; N17.9 Acute kidney failure, unspecified

== ENCOUNTER 2024-11-23 15:26 | Inpatient (IN) ==
--- NOTE | 2024-11-23 16:27 | Emergency Department Note ---
Impression & Plan Right femoral shaft fracture ED Provider Note CHIEF COMPLAINT: Right knee injury HISTORY OF PRESENT ILLNESS: Patient is a 79-year-old female with past medical history significant for diabetes, dementia,, CKD, seizure disorder, hypothyroidism, among other chronic medical problems, who is brought to the emergency department via EMS from [facility] where she resides, for evaluation of her right knee. History obtained from the patient although felt to be unreliable due to her dementia. Additional history obtained from EMS and nursing facility notes. Within the last couple of days, (patient reports 2 days ago), but EMS reports it happened on Wednesday 4 days ago, the patient was being pushed by staff in her wheelchair, and somehow her right leg caught, and her knee twisted in the chair. An x-ray performed today, reportedly showed some type of fracture. She does have a right total knee arthroplasty. Nursing documentation reports that she has been getting tramadol for pain. Patient reports that she is able to ambulate slightly with a walker, but is essentially wheelchair-bound. Other than the knee pain, the patient denies any other complaints. She is not on any blood thinning medications. REVIEW OF SYSTEMS: Review of systems as per HPI. All other systems reviewed were negative. 10 systems reviewed. PAST MEDICAL HISTORY: External medical records are reviewed and summarized as above/below. See Problem List. SOCIAL HISTORY: Patient lives at [facility]. PHYSICAL EXAM: Vital Signs: Reviewed Nurse's notes. CONSTITUTIONAL: Patient is a pleasant elderly 79-year-old female who is awake and alert and laying semiupright on the gurney in no acute distress. HEART: Regular rate and rhythm. LUNGS: Clear to auscultation. MUSCULOSKELETAL: Examination of the right lower extremity note well-healed surgical scars over the lateral aspect of the right hip, in the midline of the right knee. As she is laying in the bed, then right leg has noted positional valgus deformity at the knee. Knee swelling noted, no significant bruising. The calf is soft and nontender. Sensation light touch is grossly intact over the right lower leg. Dorsalis pedis and posterior tibialis pulses are easily palpable. Range of motion is not assessed due to the unknown nature of the reported fracture. EMERGENCY DEPARTMENT COURSE: The patient was seen and assessed as above. External medical records are reviewed, paperwork from [facility] that accompany her is extensive and also reviewed. History obtained from the patient, as well as SNF records, and EMS. There is no documentation of an x-ray report, therefore right knee x-rays were obtained, and per my interpretation consistent with a periprosthetic distal femur fracture. Patient reviewed with Dr. Mae, attending physician. Consultation placed with orthopedics, patient reviewed with Timothy Cruz PA-C. He recommended admission to medical service, for consideration for surgical intervention. A knee immobilizer was placed at his request. Patient reviewed with ED case assistant, and consultation placed with the [facility] for admission. Patient reviewed with Dr. Gonsales. EKG, chest x-ray and laboratory studies were ordered for admitting/medical clearance for OR. I did speak with the patient's daughter/POA, Darling, via telephone to notify her of the ED workup and plan. Diagnostics, as interpreted by me: Laboratory studies: Normal white count of 8300. H&H 8.9 and 27.6 with normal indices. This does appear to be worsening from prior compared to September. Coags are normal. BUN and creatinine elevated at 67 and 3.35, consistent with her CKD, although also worsened from September, 1 creatinine was 2.5. Urine microscopy notes 3+ leukocyte esterase and large amount of WBCs with 4+ bacteria. A urine culture is pending. ECG: Normal sinus rhythm 73 bpm. No interval prolongation. Questionable new left bundle branch block. Cardiac Monitoring: Cardiac monitoring: An order was placed for continuous cardiac monitoring. The monitor shows a NSR at a rate of 83 per my interpretation. Imaging studies: Chest x-ray clear, no infiltrate or consolidation. Right knee x-ray distal femur fracture. Differential diagnosis: Femur fracture, hip dislocation, knee dislocation, periprosthetic fracture, sprain, ligamentous injury, among others. Past Med/Surg History Problem List (Updated 11/23/24 @ 18:35 by Gerald Gonsales MD) Right femoral shaft fracture (Acute) L1 vertebral fracture CKD (chronic kidney disease) stage 4, GFR 15-29 ml/min Weakness (Acute) Diarrhea (Acute) Diarrhea Closed fracture of pedicle of lumbar vertebra (Acute) Hyperglycemia (Acute) Lumbar disc disease with radiculopathy (Acute) UTI (urinary tract infection), uncomplicated Spinal stenosis, lumbar L3 vertebral fracture Seizure disorder Ankylosing spondylitis (Acute) Asymptomatic hyperuricemia (Acute) Chronic lower back pain (Acute) Chronic reflux esophagitis (Acute) Elevated blood pressure reading in office without diagnosis of hypertension (Acute) Osteoarthritis of shoulder (Acute) Osteoporosis, senile (Acute) PAD (peripheral artery disease) (Acute) Stasis dermatitis (Acute) Hyperglycemia Bilateral edema of lower extremity (Acute) Hypotension (Acute) Epilepsy (Chronic) Hypothyroidism (Chronic) DM type 2 (diabetes mellitus, type 2) (Chronic) Carotid stenosis (Chronic) Cerebrovascular disease, arteriosclerotic, post-stroke (Chronic) Vertebral fracture, osteoporotic (Chronic) Migraine (Chronic) GERD (gastroesophageal reflux disease) (Chronic) CKD (chronic kidney disease), stage III (Chronic) Dyslipidemia (Chronic) Osteoarthritis (Chronic) Venous stasis ulcer of right lower extremity (Acute) Medical History Hyperglycemia Abdominal pain Hyperglycemia 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 Rhabdomyolysis Rhabdomyolysis Cellulitis Screening for skin condition Surgical History S/P rotator cuff repair S/P cholecystectomy History of bilateral knee replacement History of left-sided carotid endarterectomy H/O total knee replacement Family History Mother Transitional cell carcinoma of bladder Diabetes Cardiac disorder Hypertension Ovarian cancer Grandmother Cancer Uncle Cancer Father Cardiac disorder Hypertension Asthma Social History Smoking Status: Never smoker Second Hand Exposure: No; Do You Dip or Chew Tobacco: No; Hx Alcohol Use: No Hx Substance Use: No Preferred Language: Serbian Communication Ability: Effective Field Administrator Required: No Beliefs That Will Affect Care: None marital status: / Current Living Situation: Alone Current Living Situation Comment: [employer] How many Children do You have: 2 Feels Safe at Home: Yes Assistive Devices: Scooter/Electric Scooter and Walker Allergies Allergies Allergy/AdvReac Type Severity Reaction Status Date / Time omeprazole Allergy Severe throat Verified 11/28/22 02:26 swelling alendronate sodium Allergy Unknown GI SYMPTOMS Verified 11/28/22 02:26 oxytocin Allergy Unknown Nausea and Verified 11/28/22 02:26 vomiting pioglitazone Allergy Unknown Edema BLE Verified 11/28/22 02:26 prednisone Allergy Unknown Nausea and Verified 11/28/22 02:26 vomiting risedronate sodium Allergy Unknown Headache Verified 11/28/22 02:26 and weakness sitagliptin Allergy Unknown Itching Verified 11/28/22 02:26 valproic acid Allergy Unknown Affected Verified 11/28/22 02:26 her memory divalproex sodium Allergy Unknown Verified 11/28/22 02:26 [From Depakote] fluoxetine [From Prozac] Allergy Unknown Verified 11/28/22 02:26 codeine AdvReac Unknown NAUSEA/VOMI Verified 11/28/22 02:26 TING morphine AdvReac Unknown nausea/vomi Verified 11/28/22 02:26 ting oxycodone AdvReac Unknown nausea/vomi Verified 11/28/22 02:26 ting Home Meds Home Medications Medication Instructions Recorded Confirmed acetaminophen 650 mg 650 mg PO Q8H PRN FEVER/PAIN 05/19/22 11/23/24 tablet,extended release (Tylenol 8 Hour) ascorbic acid (vitamin C) 1,000 mg 1,000 mg PO QAM 05/19/22 11/23/24 tablet (Vitamin C) carboxymethylcellulose 0.5 1 drp ophthalmic (eye) BID 11/23/24 11/23/24 %-glycerin 0.9 % (PF) eye drops (Refresh Tears PF) insulin glargine 100 unit/mL 8 unit subcut DAILY 11/23/24 11/23/24 subcutaneous solution (Lantus U-100 Insulin) lamotrigine 100 mg tablet 100 mg PO BID 11/23/24 11/23/24 levothyroxine 125 mcg tablet 125 mcg PO DAILY 11/23/24 11/23/24 lidocaine 4 % topical patch 1 patch topical DAILY 11/23/24 11/23/24 paroxetine HCl 20 mg tablet 20 mg PO DAILY 11/23/24 11/23/24 polyethylene glycol 3350 17 17 g PO DAILY PRN Constipation 11/23/24 11/23/24 gram/dose oral powder risperidone 0.25 mg tablet 0.25 mg PO AMHS 11/23/24 11/23/24 sennosides 8.6 mg-docusate sodium 1 tab-cap PO DAILY 11/23/24 11/23/24 50 mg tablet (Senna-S) tramadol 50 mg tablet 50 mg PO Q8 PRN PAIN 4-10 11/23/24 11/23/24 Previous Rx's Medication Instructions Recorded Shower Chair #1 ea 06/03/20 aspirin 81 mg tablet,delayed 81 mg PO QAM #30 tabs 06/08/22 release cholecalciferol (vitamin D3) 125 5,000 unit PO QAM #30 tabs 01/05/23 mcg (5,000 unit) tablet Results & Data (ED) Vital Signs Vital Signs - 24 hr 11/23/24 15:36 11/23/24 15:42 11/23/24 16:00 Temperature 37.1 C Temperature Source Oral Pulse Rate 71 72 Pulse Rate from SpO2 Sensor 72 Pulse Rhythm Regular Pulse Strength Normal Respiratory Rate 19 17 Respiratory Effort / Characteristics Non-Labored Spontaneous Respiratory Depth Normal Respiratory Pattern Regular Blood Pressure 131/57 L 128/63 Blood Pressure Mean 81 76 Pulse Oximetry 99 93 Oxygen Delivery Method Room Air Sepsis Recent Fever Within 48 Hours No Sepsis New/Unexplained Change in Mental Status No Sepsis Action Taken by Nursing No Action Required 11/23/24 16:12 11/23/24 16:30 11/23/24 16:30 Temperature Temperature Source Pulse Rate 71 72 Pulse Rate from SpO2 Sensor 71 Pulse Rhythm Pulse Strength Respiratory Rate 16 17 Respiratory Effort / Characteristics Respiratory Depth Respiratory Pattern Blood Pressure 141/65 H Blood Pressure Mean 75 Pulse Oximetry 93 Oxygen Delivery Method Sepsis Recent Fever Within 48 Hours Sepsis New/Unexplained Change in Mental Status Sepsis Action Taken by Nursing 11/23/24 16:30 11/23/24 16:30 11/23/24 16:30 Temperature Temperature Source Pulse Rate Pulse Rate from SpO2 Sensor Pulse Rhythm Pulse Strength Respiratory Rate Respiratory Effort / Characteristics Respiratory Depth Respiratory Pattern Blood Pressure 141/65 H 141/65 H 141/65 H Blood Pressure Mean 75 75 75 Pulse Oximetry Oxygen Delivery Method Sepsis Recent Fever Within 48 Hours Sepsis New/Unexplained Change in Mental Status Sepsis Action Taken by Nursing 11/23/24 16:42 11/23/24 16:45 11/23/24 17:36 Temperature Temperature Source Pulse Rate 73 71 69 Pulse Rate from SpO2 Sensor Pulse Rhythm Pulse Strength Respiratory Rate 16 18 Respiratory Effort / Characteristics Respiratory Depth Respiratory Pattern Blood Pressure Blood Pressure Mean Pulse Oximetry Oxygen Delivery Method Sepsis Recent Fever Within 48 Hours Sepsis New/Unexplained Change in Mental Status Sepsis Action Taken by Nursing 11/23/24 17:42 11/23/24 17:51 11/23/24 18:00 Temperature Temperature Source Pulse Rate 71 72 70 Pulse Rate from SpO2 Sensor Pulse Rhythm Pulse Strength Respiratory Rate 18 15 17 Respiratory Effort / Characteristics Respiratory Depth Respiratory Pattern Blood Pressure Blood Pressure Mean Pulse Oximetry Oxygen Delivery Method Sepsis Recent Fever Within 48 Hours Sepsis New/Unexplained Change in Mental Status Sepsis Action Taken by Nursing 11/23/24 18:00 11/23/24 18:00 11/23/24 18:15 Temperature Temperature Source Pulse Rate 74 Pulse Rate from SpO2 Sensor Pulse Rhythm Pulse Strength Respiratory Rate 21 Respiratory Effort / Characteristics Respiratory Depth Respiratory Pattern Blood Pressure 111/91 111/91 Blood Pressure Mean 96 96 Pulse Oximetry Oxygen Delivery Method Sepsis Recent Fever Within 48 Hours Sepsis New/Unexplained Change in Mental Status Sepsis Action Taken by Nursing 11/23/24 18:24 11/23/24 18:30 11/23/24 18:30 Temperature Temperature Source Pulse Rate 73 71 Pulse Rate from SpO2 Sensor Pulse Rhythm Pulse Strength Respiratory Rate 19 13 Respiratory Effort / Characteristics Respiratory Depth Respiratory Pattern Blood Pressure 138/56 L Blood Pressure Mean 77 Pulse Oximetry Oxygen Delivery Method Sepsis Recent Fever Within 48 Hours Sepsis New/Unexplained Change in Mental Status Sepsis Action Taken by Nursing 11/23/24 18:30 11/23/24 18:30 11/23/24 18:30 Temperature Temperature Source Pulse Rate Pulse Rate from SpO2 Sensor Pulse Rhythm Pulse Strength Respiratory Rate Respiratory Effort / Characteristics Respiratory Depth Respiratory Pattern Blood Pressure 138/56 L 138/56 L 138/56 L Blood Pressure Mean 77 77 77 Pulse Oximetry Oxygen Delivery Method Sepsis Recent Fever Within 48 Hours Sepsis New/Unexplained Change in Mental Status Sepsis Action Taken by Prison Medications Current Medication List: was personally reviewed by me Laboratory Data Attestation: I reviewed the patient's lab results. 11/23/24 15:51 11/23/24 15:51 Lab Results 11/23/24 11/23/24 11/23/24 Range/Units 15:51 17:05 18:01 WBC 8.03 (4.8-10.8) K/ul RBC 2.81 L (4.20-5.40) M/uL Hgb 8.9 L (12.0-16.0) g/dl Hct 27.6 L (37.0-47.0) % MCV 98.2 (80.0-100.0) fL MCH 31.7 (25.0-34.0) pg MCHC 32.2 (32.0-36.0) g/dL RDW Std Deviation 45.3 (36.4-46.3) fL RDW Coeff of Tony 12.6 (11.5-14.5) % Plt Count 210 (130-400) K/uL MPV 9.4 (9.4-12.4) fL Immature Gran % (Auto) 0.2 % Neut % (Auto) 70.9 % Lymph % (Auto) 16.1 % Hawkins % (Auto) 9.8 % Eos % (Auto) 2.6 % Baso % (Auto) 0.4 % Neut # (Auto) 5.69 (1.40-6.50) K/uL Lymph # (Auto) 1.29 (1.20-3.40) K/uL Hawkins # (Auto) 0.79 H (0.11-0.59) K/uL Eos # (Auto) 0.21 (0.00-0.50) K/uL Baso # (Auto) 0.03 (0.00-0.20) K/uL Immature Gran # (Auto) 0.02 (0.01-0.20) K/uL PT 10.3 (9.0-12.0) Seconds INR 0.9 (0.9-1.1) APTT 27 (21-31) Seconds PTT Ratio 1.0 Sodium 138 (136-145) mmol/L Potassium 4.4 (3.5-5.1) mmol/L Chloride 104 (98-107) mmol/L Carbon Dioxide 26 (21-32) mmol/L Anion Gap 8 (3-11) BUN 67 H (6-23) mg/dl Creatinine 3.35 H (0.6-1.2) mg/dl Est Cr Clr Drug Dosing 13.6 ml/min eGFR 13.52 BUN/Creatinine Ratio 20.0 (10-20) Glucose 107 H (70-99(Fasting)) mg/dl Calcium 8.3 L (8.6-10.3) mg/dl Total Bilirubin 0.5 (0.2-1.0) mg/dl AST 10 L (13-39) U/L ALT 3 L (7-52) U/L Alkaline Phosphatase 72 (34-104) U/L Total Protein 6.1 (6.0-8.3) gm/dl Albumin 3.5 (3.4-5.0) gm/dl Globulin 2.6 (2.5-4.0) gm/dl Albumin/Globulin Ratio 1.3 (0.9-2) Urine Color Yellow Urine Appearance Cloudy A (Clear) Urine pH 8.5 H (4.5-7.5) Ur Specific [place] 1.016 (1.000-1.030) Urine Protein 3+ H (Negative) Urine Glucose (UA) Negative (Negative) Urine Ketones Negative (Negative) Urine Blood Negative (Negative) Urine Nitrite Negative (Negative) Urine Bilirubin Negative (Negative) Urine Urobilinogen Negative (Negative) Ur Leukocyte Esterase 3+ H (Negative) Urine WBC (Auto) 21-50 H (0-5) /hpf Urine RBC (Auto) 0-2 (0-2) /hpf U Hyaline Cast (Auto) 3-5 H (0-2) /lpf U Epithel Cells (Auto) 6-10 H (0-2) /hpf Urine Bacteria (Auto) 4+ H (None Seen) Blood Type O Positive Antibody Screen NEGATIVE Administered Medications Parenteral Electrolytes (Plasma-Lyte A Ph 7.4) 1,000 mls @ 125 mls/hr IV .Q8H GLORIA Stop: 11/24/24 18:14 Last Admin: 11/23/24 18:20 Dose: 125 mls/hr Documented By: LAWANDA Imaging Data Attestation: I personally reviewed and interpreted this imaging study as follows: Radiologist's Impression: Knee X-Ray 11/23/24 16:04 EXAM: XR knee RT 1 or 2V routine CLINICAL HISTORY: PERIPROSTETIC FX. TECHNIQUE: X-ray of Right knee joint was done in AP and lateral (cross table) views. COMPARISON: None. FINDINGS: Status post total knee replacement. Normal alignment of the femoral and tibial prosthesis. There is a displaced fracture of the distal femoral shaft (supra trochanteric fracture) with overlapping of the bony edges. There is surrounding soft tissue swelling likely haematoma. Diffuse reduction of osseous mineralization is noted. IMPRESSION: 1. Distal femoral shaft acute displaced fracture and surrounding soft tissue swelling. 2. Osteopenia. 3. Normal alignment of the femoral and tibial prosthesis of total knee replacement. Disclaimer: A subtle bone abnormality or fracture may not be readily apparent on X-rays, thus clinical correlation and further imaging including follow-up CT, MRI, or follow-up X-rays are advised as needed. Electronically signed by Ariela Leija 11-23-2024 6:34 PM Chest X-Ray 11/23/24 16:58 Chest radiograph, one view History: Chest pain Comparison: 09/15/2022 Findings: Single AP view of the chest performed. No focal consolidation or pleural effusion. No pneumothorax. Mild streaky left midlung atelectasis again seen. The cardiomediastinal silhouette is within normal limits. Normal pulmonary vascularity. No evidence for lymphadenopathy. No visualized bony or soft tissue abnormality. Chronic deformity of the left shoulder joint and proximal humerus. Impression: No acute process Electronically signed by Damien Mixon 11-23-2024 6:01 PM Hip/Pelvis X-Ray 11/23/24 18:03 Study: Pelvis 1 view, right hip 2 views History: Pain Comparison: 11/10/2020 Findings: There is no acute fracture or dislocation. There is a total right hip arthroplasty which appears intact. Prominent reactive exostosis at the greater trochanter. No left hip fracture is appreciated. Alignment is anatomic. Joint spaces are well maintained. There is no joint effusion or significant soft tissue swelling. Bone mineralization is decreased. Impression: No acute bony abnormality. Evaluation of the pubic rami is somewhat limited due to decreased bone mineral density and technique. Electronically signed by Damien Mixon 11-23-2024 7:43 PM Discharge Plan Visit Data Chief Complaint: Knee Injury/Pain ED Provider: Jacinto Mae ED Midlevel Provider: Swati Marcano Discharge Problem: Right femoral shaft fracture Patient Disposition: Being Evaluated by Hospitalist Discharge Instructions Interventions: ED Discharge Assessment Last Done: 11/23/24 20:42 Discharge Problem: Right femoral shaft fracture Qualifiers: Encounter type: initial encounter Fracture type: closed Fracture morphology: c omminuted Fracture alignment: displaced Qualified Code(s): S72.351A - Displaced comminuted fracture of shaft of right femur, initial encounter for closed fracture
[2024-11-23 17:21] LABS: Basophils # (auto) 0.03 K/uL (0.00-0.20); Basophils % (auto) 0.4 %; Eosinophils # (auto) 0.21 K/uL (0.00-0.50); Eosinophils % (auto) 2.6 %; Hematocrit (blood only) 27.6 % (37.0-47.0); Hemoglobin 8.9 g/dl (12.0-16.0); Immature Granulocytes # (auto) 0.02 K/uL (0.01-0.20); Immature Granulocytes % (auto) 0.2 %; Lymphocytes # (auto) 1.29 K/uL (1.20-3.40); Lymphocytes % (auto) 16.1 %; Mean Corpuscular Hemoglobin 31.7 pg (25.0-34.0); Mean Corpuscular Hgb Conc 32.2 g/dL (32.0-36.0); Mean Corpuscular Volume 98.2 fL (80.0-100.0); Mean Platelet Volume 9.4 fL (9.4-12.4); Monocytes # (auto) 0.79 K/uL (0.11-0.59); Monocytes % (auto) 9.8 %; Neutrophils # (auto) 5.69 K/uL (1.40-6.50); Neutrophils % (auto) 70.9 %; Platelet Count 210 K/uL (130-400); RDW Coefficient of Variation 12.6 % (11.5-14.5); RDW Standard Deviation 45.3 fL (36.4-46.3); Red Blood Count 2.81 M/uL (4.20-5.40); White Blood Count 8.03 K/ul (4.8-10.8)
[2024-11-23 17:28] LABS: Albumin Globulin Ratio 1.3 (0.9-2); Albumin Level 3.5 gm/dl (3.4-5.0); Bilirubin,Total 0.5 mg/dl (0.2-1.0); Calcium 8.3 mg/dl (8.6-10.3); Creatinine Clr Calc Pharmacy 13.6 ml/min; Globulin 2.6 gm/dl (2.5-4.0); Potassium 4.4 mmol/L (3.5-5.1); Total Protein 6.1 gm/dl (6.0-8.3)
--- NOTE | 2024-11-23 17:38 | Emergency Department Note ---
ED Visit Note I was consulted by the Advanced Practice Provider, Aaron Marcano PA-C. I personally made/approved the management plan and take responsibility for the patient management. I performed a substantive portion of the visit. This includes the aspects of: -MDM: Patient has periprosthetic fracture. Orthopedics will be consulted for further management. -I independently interpreted the following studies: X-ray imaging of the knee reveals a periprosthetic fracture of the femur .
[2024-11-23 17:54] LABS: INR 0.9 (0.9-1.1); Partial Thromboplastin Time 27 Seconds (21-31); Prothrombin Time 10.3 Seconds (9.0-12.0)
--- NOTE | 2024-11-23 18:02 | XRay Report ---
Chest radiograph, one view History: Chest pain Comparison: 09/15/2022 Findings: Single AP view of the chest performed. No focal consolidation or pleural effusion. No pneumothorax. Mild streaky left midlung atelectasis again seen. The cardiomediastinal silhouette is within normal limits. Normal pulmonary vascularity. No evidence for lymphadenopathy. No visualized bony or soft tissue abnormality. Chronic deformity of the left shoulder joint and proximal humerus. Impression: No acute process Electronically signed by Damien Mixon 11-23-2024 6:01 PM
[2024-11-23 18:13] LABS: Appearance Urine Cloudy (Clear); Bacteria Urine Automated 4+ (None Seen); Bilirubin Urine Negative (Negative); Blood Urine Negative (Negative); Color Urine Yellow; Glucose Urine UA Negative (Negative); Ketones Urine Negative (Negative); Leukocyte Esterase Urine 3+ (Negative); Nitrite Urine Negative (Negative); Protein Urine 3+ (Negative); RBC Urine Automated 0-2 /hpf (0-2); Specific Gravity Urine 1.016 (1.000-1.030); Urobilinogen Urine Negative (Negative); WBC Urine Automated 21-50 /hpf (0-5); pH Urine 8.5 (4.5-7.5)
[2024-11-23] MEDS: PLASMA-LYTE A 1,000 ML IV SCH (18:20)
--- NOTE | 2024-11-23 18:34 | XRay Report ---
EXAM: XR knee RT 1 or 2V routine CLINICAL HISTORY: PERIPROSTETIC FX. TECHNIQUE: X-ray of Right knee joint was done in AP and lateral (cross table) views. COMPARISON: None. FINDINGS: Status post total knee replacement. Normal alignment of the femoral and tibial prosthesis. There is a displaced fracture of the distal femoral shaft (supra trochanteric fracture) with overlapping of the bony edges. There is surrounding soft tissue swelling likely haematoma. Diffuse reduction of osseous mineralization is noted. IMPRESSION: 1. Distal femoral shaft acute displaced fracture and surrounding soft tissue swelling. 2. Osteopenia. 3. Normal alignment of the femoral and tibial prosthesis of total knee replacement. Disclaimer: A subtle bone abnormality or fracture may not be readily apparent on X-rays, thus clinical correlation and further imaging including follow-up CT, MRI, or follow-up X-rays are advised as needed. Electronically signed by Ariela Leija 11-23-2024 6:34 PM
--- NOTE | 2024-11-23 18:36 | History & Physical Report ---
Date of Service November 23, 2024 Assessment & Plan (1) Right femoral shaft fracture: Plan: NPO, IV fluids Acetaminophen PRN No NSAIDs due to CKD Opiates deferred due to nausea/vomiting on allergy list to codeine/morphine/oxycodone Surgical clearance deferred pending repeat labs in AM (2) Anemia: Plan: Iron studies, B12, folate with AM labs Hgb 8.9 from baseline 10.1 Suspect anemia of chronic disease No melena or known blood loss per patient (3) CKD (chronic kidney disease) stage 4, GFR 15-29 ml/min: Plan: Unclear baseline but Cr 2.54 in September therefore not diagnostic of JEFFERSON. Reports previously under [facility] nephrology but not seen for many years. Suspect this is just a progression of her CKD however will get US renal and hydrate overnight with IV fluids with repeat BMP in AM as part of pre-op clearance UA pending (4) Osteoporosis, senile: Plan: Vitamin D level in AM Consider treatment as outpatient (5) Epilepsy: Plan: Continue Lamictal (6) DM type 2 (diabetes mellitus, type 2): Plan: HbA1C 6.8 [11/08/24], no need to repeat Hold glipizide, Lantus Novolog: --Goal BSG Range: Low 110 mg/dL, High 140 mg/dL --Correction Factor: 45 mg/dL/unit no carb ratio --BSGs ACHS if eating, q6h if npo (7) Hypothyroidism: Plan: TSH WNL in September Continue levothyroxine (8) GERD (gastroesophageal reflux disease): Plan: Prior throat swelling to omeprazole Start famotidine 20mg IV daily Plan VTE Prophylaxis - deferred pre-operatively Diet - NPO Disposition - admit to med/surg Admission and Anticipated Discharge Date Admission Date: November 23, 2024 History of Present Illness Chief Complaint: Distal femur fracture Primary Care Provider: [facility] Radha Magdaleno is a 79 year old female who presents to the ER with right leg pain following an injury on Wednesday. She reports being in a wheelchair being pushed by a friend and getting her leg caught under the wheelchair. Right knee XR at [facility] showed a fracture and she was transferred to [facility] for further care. She denies hitting her head. She reports reflux has been worse since the knee issue but otherwise no other complaints. No fever, chills, respiratory, urinary or gastrointestinal symptoms. No prior history of stroke or heart attack. No chest pain or shortness of breath on exertion. She reports having CKD previously under the care of [facility] nephrology but not seen for many years as [facility] do all her care now. She does not recall having anemia but denies any known blood loss or melena. She was previously under the [facility] team although her insurance dictates she has to now come under [facility]. Allergies Allergy/AdvReac Type Severity Reaction Status Date / Time omeprazole Allergy Severe throat Verified 11/28/22 02:26 swelling alendronate sodium Allergy Unknown GI SYMPTOMS Verified 11/28/22 02:26 oxytocin Allergy Unknown Nausea and Verified 11/28/22 02:26 vomiting pioglitazone Allergy Unknown Edema BLE Verified 11/28/22 02:26 prednisone Allergy Unknown Nausea and Verified 11/28/22 02:26 vomiting risedronate sodium Allergy Unknown Headache Verified 11/28/22 02:26 and weakness sitagliptin Allergy Unknown Itching Verified 11/28/22 02:26 valproic acid Allergy Unknown Affected Verified 11/28/22 02:26 her memory divalproex sodium Allergy Unknown Verified 11/28/22 02:26 [From Depakote] fluoxetine [From Prozac] Allergy Unknown Verified 11/28/22 02:26 codeine AdvReac Unknown NAUSEA/VOMI Verified 11/28/22 02:26 TING morphine AdvReac Unknown nausea/vomi Verified 11/28/22 02:26 ting oxycodone AdvReac Unknown nausea/vomi Verified 11/28/22 02:26 ting Home Medications Medication Instructions Recorded Confirmed Type Shower Chair #1 ea 06/03/20 11/23/24 Rx acetaminophen 650 mg 650 mg PO Q8H PRN FEVER/PAIN 05/19/22 11/23/24 History tablet,extended release (Tylenol 8 Hour) ascorbic acid (vitamin C) 1,000 mg 1,000 mg PO QAM 05/19/22 11/23/24 History tablet (Vitamin C) aspirin 81 mg tablet,delayed 81 mg PO QAM #30 tabs 06/08/22 11/23/24 Rx release cholecalciferol (vitamin D3) 125 5,000 unit PO QAM #30 tabs 01/05/23 11/23/24 Rx mcg (5,000 unit) tablet carboxymethylcellulose 0.5 1 drp ophthalmic (eye) BID 11/23/24 11/23/24 History %-glycerin 0.9 % (PF) eye drops (Refresh Tears PF) insulin glargine 100 unit/mL 8 unit subcut DAILY 11/23/24 11/23/24 History subcutaneous solution (Lantus U-100 Insulin) lamotrigine 100 mg tablet 100 mg PO BID 11/23/24 11/23/24 History levothyroxine 125 mcg tablet 125 mcg PO DAILY 11/23/24 11/23/24 History lidocaine 4 % topical patch 1 patch topical DAILY 11/23/24 11/23/24 History paroxetine HCl 20 mg tablet 20 mg PO DAILY 11/23/24 11/23/24 History polyethylene glycol 3350 17 17 g PO DAILY PRN Constipation 11/23/24 11/23/24 History gram/dose oral powder risperidone 0.25 mg tablet 0.25 mg PO AMHS 11/23/24 11/23/24 History sennosides 8.6 mg-docusate sodium 1 tab-cap PO DAILY 11/23/24 11/23/24 History 50 mg tablet (Senna-S) tramadol 50 mg tablet 50 mg PO Q8 PRN PAIN 4-10 11/23/24 11/23/24 History Past Med/Surg History Problem List (Updated 11/24/24 @ 07:14 by Gerald Gonsales MD) Anemia Right femoral shaft fracture (Acute) L1 vertebral fracture CKD (chronic kidney disease) stage 4, GFR 15-29 ml/min Weakness (Acute) Diarrhea (Acute) Diarrhea Closed fracture of pedicle of lumbar vertebra (Acute) Hyperglycemia (Acute) Lumbar disc disease with radiculopathy (Acute) UTI (urinary tract infection), uncomplicated Spinal stenosis, lumbar L3 vertebral fracture Seizure disorder Ankylosing spondylitis (Acute) Asymptomatic hyperuricemia (Acute) Chronic lower back pain (Acute) Chronic reflux esophagitis (Acute) Elevated blood pressure reading in office without diagnosis of hypertension (Acute) Osteoarthritis of shoulder (Acute) Osteoporosis, senile (Acute) PAD (peripheral artery disease) (Acute) Stasis dermatitis (Acute) Hyperglycemia Bilateral edema of lower extremity (Acute) Hypotension (Acute) Epilepsy (Chronic) Hypothyroidism (Chronic) DM type 2 (diabetes mellitus, type 2) (Chronic) Carotid stenosis (Chronic) Cerebrovascular disease, arteriosclerotic, post-stroke (Chronic) Vertebral fracture, osteoporotic (Chronic) Migraine (Chronic) GERD (gastroesophageal reflux disease) (Chronic) CKD (chronic kidney disease), stage III (Chronic) Dyslipidemia (Chronic) Osteoarthritis (Chronic) Venous stasis ulcer of right lower extremity (Acute) Medical History Hyperglycemia Abdominal pain Hyperglycemia 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 Rhabdomyolysis Rhabdomyolysis Cellulitis Screening for skin condition Surgical History S/P rotator cuff repair S/P cholecystectomy History of bilateral knee replacement History of left-sided carotid endarterectomy H/O total knee replacement Family History Mother Transitional cell carcinoma of bladder Diabetes Cardiac disorder Hypertension Ovarian cancer Grandmother Cancer Uncle Cancer Father Cardiac disorder Hypertension Asthma Social History Smoking Status: Never smoker Tobacco Type: Declines Second Hand Exposure: No; Do You Dip or Chew Tobacco: No; Hx Alcohol Use: No Hx Substance Use: No Preferred Language: Azeri Communication Ability: Effective Restoration Technician Required: No Beliefs That Will Affect Care: None marital status: / Current Living Situation: Custodial Current Living Situation Comment: [employer] tuesdays How many Children do You have: 2 Feels Safe at Home: Yes Assistive Devices: Wheelchair Review of Systems Review of Systems: All systems reviewed & are unremarkable except as noted in HPI & below Physical Exam Constitutional: WD/WN, vitals as above ENMT: external ear and nose normal, oropharynx normal Respiratory: normal respiratory effort, lungs clear to auscultation Cardiovascular: RRR, no murmur, no edema Gastrointestinal (Abdomen): normal bowel sounds, soft, nontender, no hepatosplenomegaly Neurologic: moves all extremities (right leg not completely examined but moving ankle and toes on this side) and awake; no focal motor deficits and not confused Psychiatric: A+Ox3, euthymic affect Results & Data Results & Data Vital Signs (Past 12 Hours) Vital Signs Temp Pulse Resp BP Pulse Ox O2 Del Method 11/23/24 16:42 73 11/23/24 15:36 37.1 C 71 19 131/57 L 99 Room Air Laboratory Results Abnormal lab results 11/23/24 11/23/24 Range/Units 15:51 18:01 RBC 2.81 L (4.20-5.40) M/uL Hgb 8.9 L (12.0-16.0) g/dl Hct 27.6 L (37.0-47.0) % [place]ie # (Auto) 0.79 H (0.11-0.59) K/uL BUN 67 H (6-23) mg/dl Creatinine 3.35 H (0.6-1.2) mg/dl Glucose 107 H (70-99(Fasting)) mg/dl Calcium 8.3 L (8.6-10.3) mg/dl AST 10 L (13-39) U/L ALT 3 L (7-52) U/L Urine Appearance Cloudy A (Clear) Urine pH 8.5 H (4.5-7.5) Urine Protein 3+ H (Negative) Ur Leukocyte Esterase 3+ H (Negative) Urine WBC (Auto) 21-50 H (0-5) /hpf U Hyaline Cast (Auto) 3-5 H (0-2) /lpf U Epithel Cells (Auto) 6-10 H (0-2) /hpf Urine Bacteria (Auto) 4+ H (None Seen) Diagnostic Findings Chest radiograph, one view History: Chest pain Comparison: 09/15/2022 Findings: Single AP view of the chest performed. No focal consolidation or pleural effusion. No pneumothorax. Mild streaky left midlung atelectasis again seen. The cardiomediastinal silhouette is within normal limits. Normal pulmonary vascularity. No evidence for lymphadenopathy. No visualized bony or soft tissue abnormality. Chronic deformity of the left shoulder joint and proximal humerus. Impression: No acute process XR knee RT 1 or 2V routine CLINICAL HISTORY: PERIPROSTETIC FX. TECHNIQUE: X-ray of Right knee joint was done in AP and lateral (cross table) views. COMPARISON: None. FINDINGS: Status post total knee replacement. Normal alignment of the femoral and tibial prosthesis. There is a displaced fracture of the distal femoral shaft (supra trochanteric fracture) with overlapping of the bony edges. There is surrounding soft tissue swelling likely haematoma. Diffuse reduction of osseous mineralization is noted. IMPRESSION: 1. Distal femoral shaft acute displaced fracture and surrounding soft tissue swelling. 2. Osteopenia. 3. Normal alignment of the femoral and tibial prosthesis of total knee replacement. Medications Administered ER Medications Given: None ECG Rate (beats per minute): 73 Rhythm: normal sinus Findings: + left axis deviation Comparison ECG Date: from (January 02, 2023) Change: the following changes noted (PVC/PAC no longer present) Code Status & VTE Plan Code Status DNR/DNI per POLST form VTE Prophylaxis Plan VTE Prophylaxis will be ordered: Yes PG Care Time/CCT Total # of Minutes Spent Total Time Spent with Patient: Total time spent is greater than 50% in coordination of care (as documented) at patient's floor/unit and/or counseling patient: Coding Level of Care Code 08408 INT INP/OBS CARE 3/75MIN Diagnoses Right femoral shaft fracture S72.351A Encounter type: initial encounter Fracture alignment: displaced Fracture morphology: comminuted Fracture type: closed Anemia D64.9 CKD (chronic kidney disease) stage 4, GFR 15-29 ml/min N18.4 Osteoporosis, senile M81.0 Epilepsy G40.909 DM type 2 (diabetes mellitus, type 2) E11.9 Diabetes mellitus complication status: without complication 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: without custodial use Hypothyroidism E03.9 GERD (gastroesophageal reflux disease) K21.9 (1) Right femoral shaft fracture Encounter type: initial encounter Fracture alignment: displaced Fracture morphology: comminuted Fracture type: closed Qualified Code(s): S72.351A - Displaced comminuted fracture of shaft of right femur, initial encounter for closed fracture (6) DM type 2 (diabetes mellitus, type 2) Diabetes mellitus complication status: without complication Diabetes mellitus custodial insulin use: without custodial use Qualified Code(s): E11.9 - Type 2 diabetes mellitus without complications
--- NOTE | 2024-11-23 19:43 | XRay Report ---
Study: Pelvis 1 view, right hip 2 views History: Pain Comparison: 11/10/2020 Findings: There is no acute fracture or dislocation. There is a total right hip arthroplasty which appears intact. Prominent reactive exostosis at the greater trochanter. No left hip fracture is appreciated. Alignment is anatomic. Joint spaces are well maintained. There is no joint effusion or significant soft tissue swelling. Bone mineralization is decreased. Impression: No acute bony abnormality. Evaluation of the pubic rami is somewhat limited due to decreased bone mineral density and technique. Electronically signed by Damien Mixon 11-23-2024 7:43 PM
[2024-11-23] MEDS ORDERED: ACETAMINOPHEN 325 MG TAB PO PRN (20:43)
[2024-11-23] MEDS ORDERED: MAGNESIUM HYDROXIDE SUSP 30 ML UDC PO PRN (20:43)
[2024-11-23] MEDS ORDERED: ONDANSETRON INJ 2 MG/ML 2 ML VIAL IV PRN (20:43)
[2024-11-23] MEDS ORDERED: bisacodyL 10 MG SUPP PR PRN (20:43)
[2024-11-23] MEDS ORDERED: NALOXONE HCL 0.4 MG/1 ML VIAL/CARP IV PRN (20:43)
[2024-11-23] MEDS ORDERED: GLUCAGON FOR INJ 1 MG VIAL SQ PRN (21:06)
[2024-11-23] MEDS ORDERED: CARBOHYDRATES FOR HYPOGLYCEMIA PO PRN (21:06)
[2024-11-23] MEDS ORDERED: GLUCOSE 40% GEL 15 GM TUBE PO PRN (21:06)
[2024-11-23] MEDS ORDERED: GLUCOSE 10 TAB/TUBE PO PRN (21:06)
[2024-11-23] MEDS ORDERED: DEXTROSE 50% 50 ML SYRINGE IV PRN (21:06)
[2024-11-23] MEDS ORDERED: POLYETHYLENE (MIRALAX) 17 GM PACK PO PRN (21:08)
[2024-11-23] MEDS: lamoTRIgine 100 MG TAB PO SCH (23:04)
[2024-11-23] MEDS: risperiDONE 0.25 MG TAB PO SCH (23:05)
[2024-11-23] MEDS: ARTIFICIAL TEARS OP SCH (23:05)
[2024-11-23] MEDS: cefTRIAXone SODIUM 1,000 MG/50 ML BAG IV SCH (23:07)
--- NOTE | 2024-11-24 00:02 | XRay Report ---
Exam(s): XR RIGHT FEMUR, 2 views EXAM: XR Right Femur, 2 Views CLINICAL HISTORY: Reason for exam: periprosthetic fracture.. TECHNIQUE: Frontal and lateral views of the right femur. COMPARISON: No relevant prior studies available. FINDINGS: Bones/joints: Comminuted displaced periprosthetic distal femoral fracture. Postoperative changes right hip and knee arthroplasties. No dislocation. Soft tissues: Unremarkable. IMPRESSION: Comminuted displaced periprosthetic distal femoral fracture and prior postoperative changes right hip and knee arthroplasties Electronically signed by: Sudeep Parr MD 11/24/24 00:01 AM
[2024-11-24] MEDS: LEVOTHYROXINE SODIUM 125 MCG TABLET PO SCH (06:23)
[2024-11-24] MEDS: SODIUM CHLORIDE 0.9% 1,000 ML IV SCH (07:44)
[2024-11-24] MEDS: FAMOTIDINE 20MG IV PUSH 20 MG/5 ML SYR IV SCH (07:46)
[2024-11-24] MEDS: PARoxetine HCL 20 MG TAB PO SCH (07:48)
[2024-11-24] MEDS: CHOLECALCIFEROL 125 MCG (5,000 UNITS) TAB PO SCH (07:48)
--- NOTE | 2024-11-24 08:18 | Orthopedic Consultation ---
Date of Service November 24, 2024 Assessment & Plan (1) Right femoral shaft fracture: She was educated on this injury and treatment for it. I also did discuss her fracture, treatment options with her daughter, including risks, benefits and alternatives to surgery. The patient and her daughter wish to proceed with surgical fixation. We will plan on retrograde IM nailing vs ORIF of the distal femur fx today if medically optimized. She is npo. Continue brace, bedrest. She was seen and examined by Dr. Bergeron as well. History of Present Illness Reason for Consultation: . Requesting Physician: . Attending Physician: Marko Fierro MD .Radha is a 79 year old patient admitted last night with a right pe riprosthetic femur fx. She does have some history of mild dementia but seems to recall the event. She said she was being pushed in a wheelchair at [facility] when her foot got caught under and it injured her leg. She had a xray at [facility] yesterday and then was brought to [facility] ER for further management, admitted to the Hospitalist service. Complains of right knee pain. Has previous right tka, right femur troch nail with subsequent removal of hardware and jonah. She says Dr. Jose did her tka but we do not have record of that far back. She is mostly wheelchair bound now and her daughter told me that has been for about the past year. Allergies Allergy/AdvReac Type Severity Reaction Status Date / Time omeprazole Allergy Severe throat Verified 11/28/22 02:26 swelling alendronate sodium Allergy Unknown GI SYMPTOMS Verified 11/28/22 02:26 oxytocin Allergy Unknown Nausea and Verified 11/28/22 02:26 vomiting pioglitazone Allergy Unknown Edema BLE Verified 11/28/22 02:26 prednisone Allergy Unknown Nausea and Verified 11/28/22 02:26 vomiting risedronate sodium Allergy Unknown Headache Verified 11/28/22 02:26 and weakness sitagliptin Allergy Unknown Itching Verified 11/28/22 02:26 valproic acid Allergy Unknown Affected Verified 11/28/22 02:26 her memory divalproex sodium Allergy Unknown Verified 11/28/22 02:26 [From Depakote] fluoxetine [From Prozac] Allergy Unknown Verified 11/28/22 02:26 codeine AdvReac Unknown NAUSEA/VOMI Verified 11/28/22 02:26 TING morphine AdvReac Unknown nausea/vomi Verified 11/28/22 02:26 ting oxycodone AdvReac Unknown nausea/vomi Verified 11/28/22 02:26 ting Home Medications Medication Instructions Recorded Confirmed Type Shower Chair #1 ea 06/03/20 11/23/24 Rx acetaminophen 650 mg 650 mg PO Q8H PRN FEVER/PAIN 05/19/22 11/23/24 History tablet,extended release (Tylenol 8 Hour) ascorbic acid (vitamin C) 1,000 mg 1,000 mg PO QAM 05/19/22 11/23/24 History tablet (Vitamin C) aspirin 81 mg tablet,delayed 81 mg PO QAM #30 tabs 06/08/22 11/23/24 Rx release cholecalciferol (vitamin D3) 125 5,000 unit PO QAM #30 tabs 01/05/23 11/23/24 Rx mcg (5,000 unit) tablet carboxymethylcellulose 0.5 1 drp ophthalmic (eye) BID 11/23/24 11/23/24 History %-glycerin 0.9 % (PF) eye drops (Refresh Tears PF) insulin glargine 100 unit/mL 8 unit subcut DAILY 11/23/24 11/23/24 History subcutaneous solution (Lantus U-100 Insulin) lamotrigine 100 mg tablet 100 mg PO BID 11/23/24 11/23/24 History levothyroxine 125 mcg tablet 125 mcg PO DAILY 11/23/24 11/23/24 History lidocaine 4 % topical patch 1 patch topical DAILY 11/23/24 11/23/24 History paroxetine HCl 20 mg tablet 20 mg PO DAILY 11/23/24 11/23/24 History polyethylene glycol 3350 17 17 g PO DAILY PRN Constipation 11/23/24 11/23/24 History gram/dose oral powder risperidone 0.25 mg tablet 0.25 mg PO AMHS 11/23/24 11/23/24 History sennosides 8.6 mg-docusate sodium 1 tab-cap PO DAILY 11/23/24 11/23/24 History 50 mg tablet (Senna-S) tramadol 50 mg tablet 50 mg PO Q8 PRN PAIN 4-10 11/23/24 11/23/24 History Past Med/Surg History Problem List Anemia Right femoral shaft fracture (Acute) L1 vertebral fracture CKD (chronic kidney disease) stage 4, GFR 15-29 ml/min Weakness (Acute) Diarrhea (Acute) Diarrhea Closed fracture of pedicle of lumbar vertebra (Acute) Hyperglycemia (Acute) Lumbar disc disease with radiculopathy (Acute) UTI (urinary tract infection), uncomplicated Spinal stenosis, lumbar L3 vertebral fracture Seizure disorder Ankylosing spondylitis (Acute) Asymptomatic hyperuricemia (Acute) Chronic lower back pain (Acute) Chronic reflux esophagitis (Acute) Elevated blood pressure reading in office without diagnosis of hypertension (Acute) Osteoarthritis of shoulder (Acute) Osteoporosis, senile (Acute) PAD (peripheral artery disease) (Acute) Stasis dermatitis (Acute) Hyperglycemia Bilateral edema of lower extremity (Acute) Hypotension (Acute) Epilepsy (Chronic) Hypothyroidism (Chronic) DM type 2 (diabetes mellitus, type 2) (Chronic) Carotid stenosis (Chronic) Cerebrovascular disease, arteriosclerotic, post-stroke (Chronic) Vertebral fracture, osteoporotic (Chronic) Migraine (Chronic) GERD (gastroesophageal reflux disease) (Chronic) CKD (chronic kidney disease), stage III (Chronic) Dyslipidemia (Chronic) Osteoarthritis (Chronic) Venous stasis ulcer of right lower extremity (Acute) Medical History Hyperglycemia Abdominal pain Hyperglycemia 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 Rhabdomyolysis Rhabdomyolysis Cellulitis Screening for skin condition Surgical History S/P rotator cuff repair S/P cholecystectomy History of bilateral knee replacement History of left-sided carotid endarterectomy H/O total knee replacement Family History Mother Transitional cell carcinoma of bladder Diabetes Cardiac disorder Hypertension Ovarian cancer Grandmother Cancer Uncle Cancer Father Cardiac disorder Hypertension Asthma Social History Smoking Status: Never smoker Tobacco Type: Declines Second Hand Exposure: No; Do You Dip or Chew Tobacco: No; Hx Alcohol Use: No Hx Substance Use: No Preferred Language: Macanese Communication Ability: Effective 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 Physical Exam . appears alert and oriented today. NAD Right leg: scar on her knee from previous tka. +knee effusion. Quite painful with limited movement just removing her brace. Tender to palpation around the knee. Skin intact. Slight valgus deformity at the fracture. Able to dorsiflex and plantarflex. NVI Results & Data Results & Data Laboratory Results . Diagnostic Findings xray of right knee reviewed and shows a displaced periprosthetic distal femur fx proximal to a tka. xrays of the hip shows a right jonah PG Care Time/CCT Total # of Minutes Spent Total Time Spent with Patient: Total time spent is greater than 50% in coordination of care (as documented) at patient's floor/unit and/or counseling patient: Coding Level of Care Code 73418 IN/OBS CONSULT LVL 4,60M (57 - DECISION FOR SURGERY) Diagnoses Right femoral shaft fracture S72.351A Encounter type: initial encounter Fracture alignment: displaced Fracture morphology: comminuted Fracture type: closed (1) Right femoral shaft fracture Encounter type: initial encounter Fracture alignment: displaced Fracture morphology: comminuted Fracture type: closed Qualified Code(s): S72.351A - Displaced comminuted fracture of shaft of right femur, initial encounter for closed fracture
[2024-11-24 08:39] LABS: Basophils # (auto) 0.02 K/uL (0.00-0.20); Basophils % (auto) 0.3 %; Eosinophils # (auto) 0.28 K/uL (0.00-0.50); Eosinophils % (auto) 3.9 %; Hematocrit (blood only) 26.2 % (37.0-47.0); Hemoglobin 8.4 g/dl (12.0-16.0); Immature Granulocytes # (auto) 0.04 K/uL (0.01-0.20); Immature Granulocytes % (auto) 0.6 %; Lymphocytes # (auto) 1.43 K/uL (1.20-3.40); Mean Corpuscular Hemoglobin 31.2 pg (25.0-34.0); Mean Corpuscular Hgb Conc 32.1 g/dL (32.0-36.0); Mean Corpuscular Volume 97.4 fL (80.0-100.0); Mean Platelet Volume 9.4 fL (9.4-12.4); Monocytes # (auto) 0.64 K/uL (0.11-0.59); Monocytes % (auto) 8.9 %; Neutrophils # (auto) 4.75 K/uL (1.40-6.50); Neutrophils % (auto) 66.3 %; Platelet Count 206 K/uL (130-400); RDW Coefficient of Variation 12.6 % (11.5-14.5); RDW Standard Deviation 44.8 fL (36.4-46.3); Red Blood Count 2.69 M/uL (4.20-5.40); White Blood Count 7.16 K/ul (4.8-10.8)
[2024-11-24] MEDS ORDERED: NON-FORMULARY MEDICATION (Lidocaine 4 % adhesive patch,medicated) TOP SCH (09:00)
[2024-11-24 09:03] LABS: BUN Creatinine Ratio 22.2 (10-20); Calcium 8.5 mg/dl (8.6-10.3); Potassium 4.5 mmol/L (3.5-5.1)
[2024-11-24] MEDS: INSULIN ASPART PER UNIT CHARGE SC SCH (09:04)
[2024-11-24 09:19] LABS: Ferritin 143.2 ng/ml (8-388)
[2024-11-24 09:23] LABS: Folate (Folic Acid),Ser orPlas 12.38 ng/ml (>5.38)
[2024-11-24] MEDS: DOCUSATE SODIUM/SENNA 50/8.6MG TAB PO SCH (10:14)
[2024-11-24] MEDS: LIDOCAINE 5% 1 PATCH TD SCH (10:14)
--- NOTE | 2024-11-24 11:28 | Electrocardiogram Report ---
Test Reason : Blood Pressure : */* mmHG Vent. Rate : 73 BPM Atrial Rate : 73 BPM P-R Int : 154 ms QRS Dur : 110 ms QT Int : 394 ms P-R-T Axes : 87 -40 -23 degrees QTcB Int : 434 ms Normal sinus rhythm Left axis deviation Moderate voltage criteria for LVH, may be normal variant Nonspecific T wave abnormality Abnormal ECG When compared with ECG of 02-Jan-2023 04:08, Premature ventricular complexes are no longer Present Premature atrial complexes are no longer Present Confirmed by Damien Ballesteros ([id number]) on 11/24/2024 11:28:06 AM Referred By: [facility] Confirmed By: Damien Ballesteros
[2024-11-24] MEDS ORDERED: SODIUM CHLORIDE 0.9% 100 ML IV PRN (11:44)
[2024-11-24] MEDS ORDERED: SODIUM CHLORIDE 0.9% 50 ML IV PRN (11:44)
--- NOTE | 2024-11-24 11:47 | Anesthesiology Consultation ---
Date of Service November 24, 2024 Assessment & Plan Chart Review Chart Review: Acceptable Risk for Surgery and Patient NOT seen in Pre Admission Testing Consults Requested none ASA ASA4 Proposed Anesthesia Anesthesia Type: General Anesthesia Line Insertion: Arterial line History Surgery Operation Date: 11/24/24 07:00 Proposed Procedures p Right Retrograde Nail Femur - Jose Bergeron MD Height/Weight Height: 5 ft 3 in Weight: 77 kg Allergies Allergy/AdvReac Type Severity Reaction Status Date / Time omeprazole Allergy Severe throat Verified 11/28/22 02:26 swelling alendronate sodium Allergy Unknown GI SYMPTOMS Verified 11/28/22 02:26 oxytocin Allergy Unknown Nausea and Verified 11/28/22 02:26 vomiting pioglitazone Allergy Unknown Edema BLE Verified 11/28/22 02:26 prednisone Allergy Unknown Nausea and Verified 11/28/22 02:26 vomiting risedronate sodium Allergy Unknown Headache Verified 11/28/22 02:26 and weakness sitagliptin Allergy Unknown Itching Verified 11/28/22 02:26 valproic acid Allergy Unknown Affected Verified 11/28/22 02:26 her memory divalproex sodium Allergy Unknown Verified 11/28/22 02:26 [From Depakote] fluoxetine [From Prozac] Allergy Unknown Verified 11/28/22 02:26 codeine AdvReac Unknown NAUSEA/VOMI Verified 11/28/22 02:26 TING morphine AdvReac Unknown nausea/vomi Verified 11/28/22 02:26 ting oxycodone AdvReac Unknown nausea/vomi Verified 11/28/22 02:26 ting Medications Home Medications Medication Instructions Recorded Confirmed Last Taken Shower Chair #1 ea 06/03/20 11/23/24 Unknown acetaminophen 650 mg 650 mg PO Q8H PRN FEVER/PAIN 05/19/22 11/23/24 05/19/22 06:30 tablet,extended release (Tylenol 8 1300 mg Hour) ascorbic acid (vitamin C) 1,000 mg 1,000 mg PO QAM 05/19/22 11/23/24 11/23/24 tablet (Vitamin C) aspirin 81 mg tablet,delayed 81 mg PO QAM #30 tabs 06/08/22 11/23/24 11/23/24 release cholecalciferol (vitamin D3) 125 5,000 unit PO QAM #30 tabs 01/05/23 11/23/24 11/23/24 mcg (5,000 unit) tablet carboxymethylcellulose 0.5 1 drp ophthalmic (eye) BID 11/23/24 11/23/24 11/23/24 09:00 %-glycerin 0.9 % (PF) eye drops (Refresh Tears PF) insulin glargine 100 unit/mL 8 unit subcut DAILY 11/23/24 11/23/24 11/23/24 09:00 subcutaneous solution (Lantus U-100 Insulin) lamotrigine 100 mg tablet 100 mg PO BID 11/23/24 11/23/24 11/23/24 09:00 levothyroxine 125 mcg tablet 125 mcg PO DAILY 11/23/24 11/23/24 11/23/24 06:00 lidocaine 4 % topical patch 1 patch topical DAILY 11/23/24 11/23/24 11/23/24 paroxetine HCl 20 mg tablet 20 mg PO DAILY 11/23/24 11/23/24 11/23/24 09:00 polyethylene glycol 3350 17 17 g PO DAILY PRN Constipation 11/23/24 11/23/24 Unknown gram/dose oral powder risperidone 0.25 mg tablet 0.25 mg PO AMHS 11/23/24 11/23/24 11/23/24 sennosides 8.6 mg-docusate sodium 1 tab-cap PO DAILY 11/23/24 11/23/24 11/23/24 09:00 50 mg tablet (Senna-S) tramadol 50 mg tablet 50 mg PO Q8 PRN PAIN 4-10 11/23/24 11/23/24 11/23/24 07:10 Active Medications Generic Name Dose Route Start Last Admin Trade Name Luisq PRN Reason Stop Dose Admin Artificial Tears 1 drops 11/23/24 21:30 11/24/24 07:52 Artificial Tears OP 12/23/24 21:29 1 drops BID GLORIA Administration Ceftriaxone Sodium 1,000 mg in 50 mls @ 100 mls/hr 11/23/24 23:00 11/24/24 00:22 Rocephin IV 11/28/24 22:59 Infused Q24H GLORIA Infusion Famotidine 20 mg in 5 mls @ 2.5 mls/min 11/24/24 09:00 11/24/24 07:46 Pepcid 20mg Iv Push IV 12/24/24 08:59 2.5 mls/min QAM GLORIA Administration Sodium Chloride 1,000 mls @ 80 mls/hr 11/24/24 07:30 11/24/24 10:08 Nss IV 11/25/24 07:29 80 mls/hr .[id number] GLORIA Infusion Insulin Aspart 0 units 11/24/24 07:30 11/24/24 09:04 Insulin Aspart Per Unit Charge SC 12/24/24 07:29 Not Given ACHS GLORIA Lamotrigine 100 mg 11/23/24 21:30 11/24/24 07:49 Lamotrigine 100 Mg Tab PO 12/23/24 21:29 100 mg BID GLORIA Administration Protocol Levothyroxine Sodium 125 mcg 11/24/24 06:30 11/24/24 06:23 Levothyroxine Sodium 125 Mcg Tablet PO 12/24/24 06:29 125 mcg DAILYBB GLORIA Administration Lidocaine 1 patch 11/24/24 09:00 11/24/24 10:14 Lidocaine 5% 1 Patch TD 12/24/24 08:59 1 patch QAM GLORIA Administration Paroxetine HCl 20 mg 11/24/24 09:00 11/24/24 07:48 Paroxetine Hcl 20 Mg Tab PO 12/24/24 08:59 20 mg DAILY GLORIA Administration Risperidone 0.25 mg 11/23/24 21:00 11/24/24 07:48 Risperidone 0.25 Mg Tab PO 12/23/24 20:59 0.25 mg AMHS GLORIA Administration Senna/Docusate Sodium 1 tab 11/24/24 09:00 11/24/24 10:14 Docusate Sodium/Senna 50/8.6mg Tab PO 12/24/24 08:59 1 tab DAILY GLORIA Administration Vitamin D 125 mcg 11/24/24 09:00 11/24/24 07:48 Cholecalciferol 125 Mcg (5,000 Units) Tab PO 12/24/24 08:59 125 mcg QAM GLORIA Administration Past Medical History Medical History Hyperglycemia Abdominal pain Hyperglycemia 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 Rhabdomyolysis Rhabdomyolysis Cellulitis Screening for skin condition Exercise / Class Metabolic Activity IV < 2 Limit ADL/Bedbound Past Family History Family History Mother Transitional cell carcinoma of bladder Diabetes Cardiac disorder Hypertension Ovarian cancer Grandmother Cancer Uncle Cancer Father Cardiac disorder Hypertension Asthma Past Surgical History Surgical History S/P rotator cuff repair S/P cholecystectomy History of bilateral knee replacement History of left-sided carotid endarterectomy H/O total knee replacement Past Anesthesia History No Hx of Anesthesia Complications and No Family Hx of Anesthesia Complications History of PONV No Hx of PONV and No Hx of Motion Sickness Social History Smoking Status: Never smoker Do You Dip or Chew Tobacco: No Hx Alcohol Use: No Hx Substance Use: No Physical Exam Vital Signs Last Vital Signs Temp 36.7 C 11/24/24 06:54 Pulse 70 11/24/24 06:54 Resp 16 11/24/24 06:54 BP 106/57 L 11/24/24 06:54 Pulse Ox 93 11/24/24 06:54 O2 Del Method Room Air 11/24/24 06:54 Testing Laboratory Results 11/24/24 08:09 11/24/24 08:09 PT 10.3 Seconds (9.0-12.0) 11/23/24 15:51 INR 0.9 (0.9-1.1) 11/23/24 15:51 APTT 27 Seconds (21-31) 11/23/24 15:51 Urine Color Yellow 11/23/24 18:01 Urine Appearance Cloudy (Clear) A 11/23/24 18:01 Urine pH 8.5 (4.5-7.5) H 11/23/24 18:01 Ur Specific [place] 1.016 (1.000-1.030) 11/23/24 18:01 Urine Protein 3+ (Negative) H 11/23/24 18:01 Urine Glucose (UA) Negative (Negative) 11/23/24 18:01 Urine Ketones Negative (Negative) 11/23/24 18:01 Urine Nitrite Negative (Negative) 11/23/24 18:01 Ur Leukocyte Esterase 3+ (Negative) H 11/23/24 18:01 Urine WBC (Auto) 21-50 /hpf (0-5) H 11/23/24 18:01 Urine RBC (Auto) 0-2 /hpf (0-2) 11/23/24 18:01 U Hyaline Cast (Auto) 3-5 /lpf (0-2) H 11/23/24 18:01 U Epithel Cells (Auto) 6-10 /hpf (0-2) H 11/23/24 18:01 Urine Bacteria (Auto) 4+ (None Seen) H 11/23/24 18:01 Blood Type O Positive 11/23/24 17:05 Antibody Screen NEGATIVE 11/23/24 17:05 11/23/24 18:01 Urine Culture - Preliminary Urine,Straight Cath Proteus mirabilis 11/24/24 09:02 POC Glucose 92 Electrocardiogram Date: 11/23/24 Findings: + NSR @ (@ 73;LAD;), + LVH and + NSST changes Chest X-Ray Date: 11/23/24 Findings: + NAD
--- NOTE | 2024-11-24 12:37 | Ultrasound Report ---
US renal/blad retro comp CLINICAL HISTORY: JEFFERSON/CKD TECHNIQUE: Multiple sonographic real-time images of the kidneys and bladder were obtained. COMPARISON: Comparison is made to CT abdomen pelvis 01/02/2023 FINDINGS: The right kidney measures 8.2 cm in length, and the left kidney measures 11.4 cm in length. The right kidney is diminutive in size with cortical thinning noted. No hydronephrosis is identified. No renal lesion is identified. The left kidney is diminutive in size with cortical thinning noted. No hydronephrosis is identified. No renal lesion is identified. A Guidry catheter is seen in the collapsed bladder. IMPRESSION: Diminutive kidneys are seen in this patient with history of chronic kidney disease. No acute abnormal ities are seen. ACT 112: Negative or not required by law. Electronically signed by: Ehsan Cates M.D. 11/24/2024 12:36 PM
[2024-11-24] MEDS ORDERED: PHENYLEPHRINE HCL 10 MG/ML VIAL ONE (12:48)
[2024-11-24] MEDS ORDERED: PROPOFOL IV EMULSION 10 MG/ML 20 ML VIAL IV ONE (12:51)
[2024-11-24] MEDS ORDERED: LIDOCAINE 2% 2 ML VIAL/AMP(20MG/ML) INFIL ONE (12:51)
[2024-11-24] MEDS ORDERED: ONDANSETRON INJ 2 MG/ML 2 ML VIAL ONE (12:51)
[2024-11-24] MEDS ORDERED: fentaNYL citrate PF 100 MCG/2 ML VIAL ONE ×2 (12:54→15:20)
[2024-11-24] MEDS ORDERED: ROCURONIUM BROMIDE 10 MG/ML 5 ML VIAL IV ONE (12:54)
--- NOTE | 2024-11-24 13:00 | Hospitalist Progress Note ---
Date of Service November 24, 2024 Assessment & Plan (1) Right femoral shaft fracture: Plan: Orthopedic consultation and recommendations appreciated. Previous right total knee arthroplasty and right total hip arthroplasty. She will need open reduction internal fixation of the right femur fracture later today, November 24. Pain control measures. (2) Anemia: Plan: Multifactorial. Combined anemia of chronic disease and probable acute blood loss anemia from the right femur fracture. Serial labs. Transfuse as necessary. (3) CKD (chronic kidney disease) stage 4, GFR 15-29 ml/min: Plan: Acute on chronic kidney disease stage IV. Creatinine has trended upward to 3.3. Will follow. Monitor intake and output. Serial labs . Renal ultrasound negative for hydronephrosis or obstruction (4) Osteoporosis, senile: Plan: Suspect right femur fracture is pathological in nature due to underlying osteoporosis. Consider treatment as outpatient (5) Epilepsy: Plan: Known seizure disorder. Continue Lamictal (6) DM type 2 (diabetes mellitus, type 2): Plan: HbA1C 6.8 [11/08/24]. No need for sulfonylurea if taking Lantus. Sliding scale coverage. ADA diet when taking p.o. (7) Hypothyroidism: Plan: Stable. Continue current thyroid replacement . TSH WNL in September Plan The patient resides at [facility] and probably will return there sometime next week Admission and Anticipated Discharge Date Admission Date: November 23, 2024 Subjective Alert and oriented. No distress. Glucose is satisfactory. No reason for glipizide if she is on insulin therapy. Urine analysis reveals 4+ bacteria consistent with UTI. Past urine cultures have grown Proteus. She is now on Rocephin. Creatinine has risen to 3.3 consistent with acute on chronic kidney disease stage IV. She has been seen by orthopedic surgery. She will undergo open reduction internal fixation right femur fracture later today, November 24. Review of Systems 2 Review of Systems: Constitutionalno fever or chills ENTno blurred vision, no double vision, no epistaxis, no sore throat Respiratoryno cough, no wheezing, no shortness of breath Cardiacno palpitations, no chest pain, no syncope Kirit nausea, vomiting, diarrhea, melena, hematochezia GUno urinary retention, no urinary incontinence, no dysuria, no hematuria Musculoskeletalright femur discomfort from fracture. Skinno bruising, no rashes, no pruritus Neurono isolated weakness, no paresthesia, no weakness Psychno depression, no anxiety Physical Exam 2 Physical Exam: General-alert and oriented x3, no fever, no chills HEENT-head atraumatic and normocephalic, pupils equal and reactive to light, extraocular muscles intact Neck-no lymphadenopathy or thyromegaly, trachea midline Chest-clear to auscultation. No rales, wheezing or rhonchi Cardiac-regular rate and rhythm, normal S1 and S2 Abdomen-normal bowel sounds, no hepatosplenomegaly Extremities-right femur discomfort from underlying fracture. No significant peripheral edema Neuro-cranial nerves II through XII intact, motor and sensory function within normal limits, strength symmetrical, no focal deficits Psych-normal affect, normal mood Results & Data Results & Data Vital Signs (Past 12 Hours) Vital Signs Temp Pulse Pulse Resp BP BP Pulse Ox 11/24/24 12:34 37 C 80 20 156/77 H 97 11/24/24 06:54 36.7 C 70 16 106/57 L 93 11/24/24 03:02 37.3 C 75 12 123/64 93 11/24/24 02:00 78 19 129/58 L 90 11/24/24 01:00 78 22 116/53 L 90 O2 Del Method 11/24/24 12:34 Room Air 11/24/24 06:54 Room Air 11/24/24 03:02 Room Air 11/24/24 02:00 Room Air 11/24/24 01:00 Room Air Laboratory Results 11/24/24 08:09 11/24/24 08:09 PG Care Time/CCT Total # of Minutes Spent Total Time Spent with Patient: Total time spent is greater than 50% in coordination of care (as documented) at patient's floor/unit and/or counseling patient: Coding Level of Care Code 93359 SUB INP/OBS CARE 3/50MIN Diagnoses Right femoral shaft fracture S72.351A Encounter type: initial encounter Fracture alignment: displaced Fracture morphology: comminuted Fracture type: closed Anemia D64.9 CKD (chronic kidney disease) stage 4, GFR 15-29 ml/min N18.4 Osteoporosis, senile M81.0 Epilepsy G40.909 DM type 2 (diabetes mellitus, type 2) E11.9 Diabetes mellitus complication status: without complication Diabetes mellitus roasterman insulin use: without detention use Hypothyroidism E03.9 (1) Right femoral shaft fracture Encounter type: initial encounter Fracture alignment: displaced Fracture morphology: comminuted Fracture type: closed Qualified Code(s): S72.351A - Displaced comminuted fracture of shaft of right femur, initial encounter for closed fracture (6) DM type 2 (diabetes mellitus, type 2) Diabetes mellitus complication status: without complication Diabetes mellitus roasterman insulin use: without detention use Qualified Code(s): E11.9 - Type 2 diabetes mellitus without complications
--- NOTE | 2024-11-24 13:01 | History & Physical Bridge Note ---
Date of Service November 24, 2024 History & Physical Bridge Note I have examined the patient, reviewed the History & Physical and in the interval since the performance of the History & Physical I have noted the following changes of clinical significance: no changes noted
[2024-11-24] MEDS: ceFAZolin 2000MG 2,000 MG/15 ML SYR IV ONE (13:19)
[2024-11-24] MEDS ORDERED: ePHEDrine sulfate 50 MG/ML AMP IV PRN (13:58)
[2024-11-24] MEDS ORDERED: fentaNYL citrate PF 100 MCG/2 ML VIAL IV PRN (13:58)
[2024-11-24] MEDS ORDERED: ONDANSETRON INJ 2 MG/ML 2 ML VIAL IV PRN ×2 (13:58→17:29)
[2024-11-24] MEDS ORDERED: PROMETHAZINE HCL 6.25 MG in SODIUM CHLORIDE 0.9% 50 ML IV PRN (13:58)
[2024-11-24] MEDS ORDERED: NALOXONE HCL 0.4 MG/1 ML VIAL/CARP IV PRN ×2 (13:58→17:29)
[2024-11-24] MEDS ORDERED: LABETALOL HCL IV 5 MG/ML 20ML IV PRN (13:58)
[2024-11-24] MEDS ORDERED: ATROPINE SULFATE 0.1 MG/ML 10ML SYR IV PRN (13:58)
[2024-11-24] MEDS: BUPIVACAINE/EPINEPHRINE 0.25% 1:200,000 30 ML VIAL ONE (15:43)
[2024-11-24] MEDS ORDERED: GLYCOPYRROLATE 0.2 MG/ML VIAL ONE (15:49)
[2024-11-24] MEDS ORDERED: NEOSTIGMINE METHYLSULFATE 1 MG/ML 10ML VIAL ONE (15:49)
--- NOTE | 2024-11-24 16:03 | Fluoroscopy Report ---
FL femur RT 2V CLINICAL HISTORY: RIGHT ORIF RIGHT FEMUR COMPARISON STUDY: None FLUOROSCOPY TIME: 167 seconds FLUOROSCOPY IMAGES: 7 EXPOSURE DOSE: 39 mGy FINDINGS: Fluoroscopy was provided for internal fixation of the right femur. IMPRESSION: Intraoperative fluoroscopy. ACT 112: Negative or not required by law. Electronically signed by: Porfirio Wall M.D. 11/24/2024 4:02 PM
--- NOTE | 2024-11-24 16:28 | Operative Report ---
PG Post Operative Report Pre & Post Diagnosis Operation Date: 11/24/24 07:00 Pre-Op Diagnosis: Right periprosthetic femoral Shaft Fracture Post-Op Diagnosis: Right periprosthetic femoral Shaft Fracture I identified the patient and participated in the time-out.: Yes Procedure Operation Date: 11/24/24 07:00 Actual Procedures p Right Retrograde Nail Femur(Right) femur periprosthetic femur fracture with cerclage cabling- Jose Bergeron MD Surgeon Jose Bergeron MD Tax Economist Timothy Cruz PA-C Estimated Blood Loss 100 Findings Consistent with Post-Op Diagnosis Specimens None Anesthesia Type General Complications none Disposition Accompanied Patient To Recovery: No Indications The patient is a 79-year-old female with multiple medical comorbidities and minimal ambulator who sustained a fall yesterday. She had acute onset of pain and deformity to her right leg. She is brought to emergency room where x-rays with a supracondylar periprosthetic femur fracture. Is markedly displaced. Operative and nonoperative treatments were explained. The patient was medically optimized and indicated for surgical repair. The family elected to proceed with surgical repair Description of Procedure Operative implants consist of: 1. Synthes 12 mm x 240 mm retrograde femoral nail. 2. 5 mm distal interlocking screws x 4. 3. 5 mm proximal interlocking screws x 2. 4. Synthes 1.7 mm cables x 2 The patient was taken to the op room, identified, placed on the operating table in the supine position. All conductors were appropriately padded. IV antibiotics provided by the anesthesia team. General anesthetic was implemented. The right leg was then scrubbed with Hibiclens, prepped with ChloraPrep and draped in usual sterile fashion. An anterior approach of the right knee was then performed through a longitudinal incision using the previous incision from the total knee. Sharp dissection got through subcutaneous tissue down the extensor mechanism. A medial parapatellar arthrotomy incision was made. There is extensive scarring of the knee replacement to the extensor mechanism along with the soft tissues. I had to do a complete synovectomy in this localized area in order to mobilize the patella. Once we mobilized the patella the patella was subluxated laterally. The intercondylar notch was cleaned. A guidewire was placed in central aspect of the femoral notch. It was then advanced in the mid aspect of the femur. Under fluoroscopic guidance we advanced this across the fracture site. We held this and it was reduced in position as possible. We then measured for nail length. The 8 to 140 mm nail was selected. I then overreamed the distal end of the guidewire at the entry point. I then placed the nail over the guidewire. We took several passes in order appropriately past this is in the most ideal position. It was tapped into position. The lateral aiming arm was then attached. We then placed a 4 distal interlocking screws. Her bone was ext remely soft and osteoporotic. We then placed 2 anterior posterior interlocking screws. There did seem to be some extension of the fracture superiorly so I elected placement "Dall-Miles cable in order to keep this femur as an entire tube proximally. A lateral incision was made. Sharp dissection scalp through the subcutaneous tissue down to the IT band. The vastus lateralis was retracted anteriorly. Using the Wheretoget cable passers 2 cables were passed and cinched down tight. Some final x-rays were obtained. Attention drawn toward closing. All wounds were irrigated extensively. I injected locally with 60 cc of half percent Marcaine with epinephrine. The extensor mechanism was then closed with #1 Vicryl suture in a ewkckb-ce-aariw fashion. The IT band laterally was closed with #1 Vicryl suture in running fashion. Subcutaneous tissues of all wounds were then closed with 2 Dexon suture in a buried interrupted fashion and skin was closed skin bee. Leg was then cleaned and dried a sterile dressing with Xeroform, 4 fours, sterile cast padding, Andrews bandage were applied followed by a knee immobilizer. The patient was then brought out of general esthesia and transferred to the recovery in stable condition. The patient tolerated the procedure well and there were no complications. Timothy Cruz, my physician diploma medical assistant, was present for the entire procedure. His assistance was required for proper patient positioning, prepping and draping, surgical exposure, retraction, perform the technical details of the operation, placement of the hardware, closure of the incision site and placement of this postoperative sterile bandage. I attest to the content of the Intraoperative Record and any orders documented therein. Any exceptions are noted below.
--- NOTE | 2024-11-24 17:05 | Anesthesiology Progress Note ---
Date of Service November 24, 2024 Anesthesia Post Procedure Vital Signs Vital Signs: Temp Pulse Pulse Pulse Resp BP BP 11/24/24 16:55 36.7 C 80 24 106/48 L 11/24/24 16:45 80 19 116/55 L 11/24/24 16:35 79 20 131/54 L 11/24/24 16:29 36.2 C L 79 19 130/52 L 11/24/24 12:34 37 C 80 20 156/77 H 11/24/24 06:54 36.7 C 70 16 106/57 L 11/24/24 03:02 37.3 C 75 12 123/64 11/24/24 02:00 78 19 129/58 L 11/24/24 01:00 78 22 116/53 L 11/23/24 23:32 78 11/23/24 23:06 78 19 133/55 L 11/23/24 21:32 78 16 142/59 H 11/23/24 21:15 79 18 144/71 H 11/23/24 20:32 74 20 114/62 11/23/24 20:21 73 18 11/23/24 20:17 72 15 11/23/24 20:00 73 13 11/23/24 20:00 137/64 11/23/24 20:00 137/64 11/23/24 20:00 137/64 11/23/24 19:54 71 18 11/23/24 19:48 72 18 11/23/24 19:37 71 11/23/24 19:32 72 18 133/62 11/23/24 19:30 71 15 11/23/24 19:30 133/62 11/23/24 19:30 133/62 11/23/24 19:27 72 16 11/23/24 19:06 72 18 11/23/24 19:00 134/59 L 11/23/24 19:00 134/59 L 11/23/24 18:48 75 20 11/23/24 18:30 138/56 L 11/23/24 18:30 138/56 L 11/23/24 18:30 138/56 L 11/23/24 18:30 138/56 L 11/23/24 18:30 71 13 11/23/24 18:24 73 19 11/23/24 18:15 74 21 11/23/24 18:00 111/91 11/23/24 18:00 111/91 11/23/24 18:00 70 17 11/23/24 17:51 72 15 11/23/24 17:42 71 18 11/23/24 17:36 69 18 Pulse Ox O2 Del Method O2 Flow Rate 11/24/24 16:55 94 Room Air 11/24/24 16:45 91 Room Air 11/24/24 16:35 99 Oxymask 2 11/24/24 16:29 96 Oxymask 4 11/24/24 12:34 97 Room Air 11/24/24 06:54 93 Room Air 11/24/24 03:02 93 Room Air 11/24/24 02:00 90 Room Air 11/24/24 01:00 90 Room Air 11/23/24 23:32 11/23/24 23:06 93 Room Air 11/23/24 21:32 93 Room Air 11/23/24 21:15 92 Room Air 11/23/24 20:32 93 Room Air 11/23/24 20:21 11/23/24 20:17 11/23/24 20:00 96 11/23/24 20:00 11/23/24 20:00 11/23/24 20:00 11/23/24 19:54 11/23/24 19:48 11/23/24 19:37 11/23/24 19:32 96 Room Air 11/23/24 19:30 11/23/24 19:30 11/23/24 19:30 11/23/24 19:27 11/23/24 19:06 11/23/24 19:00 11/23/24 19:00 95 11/23/24 18:48 11/23/24 18:30 11/23/24 18:30 11/23/24 18:30 11/23/24 18:30 11/23/24 18:30 11/23/24 18:24 11/23/24 18:15 11/23/24 18:00 11/23/24 18:00 11/23/24 18:00 11/23/24 17:51 11/23/24 17:42 11/23/24 17:36 Pain Intensity Right Knee: Pain Intensity: 3 Transfer of Care Handoff Completed per policy Notes Mental Status: alert / awake / arousable Patient Amnestic to Procedure: Yes Nausea / Vomiting: adequately controlled Pain: adequately controlled Airway Patency, RR, SpO2: stable & adequate BP & HR: stable & adequate Hydration State: stable & adequate Anesthetic Complications: no major complications apparent and Pt Satisfied with anesthetic care
[2024-11-24] MEDS ORDERED: MAGNESIUM HYDROXIDE SUSP 30 ML UDC PO PRN (17:29)
[2024-11-24] MEDS ORDERED: bisacodyL 10 MG SUPP PR PRN (17:29)
[2024-11-24] MEDS ORDERED: PHARMACY GLYCEMIC MGMT CONSULT PRN ×2 (17:29)
[2024-11-24] MEDS ORDERED: HYDROmorphone INJ 0.5 MG/0.5 ML SYR IV PRN (17:29)
[2024-11-24] MEDS ORDERED: ALUMINUM/MAGNESIUM SUSP 30 ML UDC PO PRN (17:29)
[2024-11-24] MEDS ORDERED: METOCLOPRAMIDE HCL INJ 5 MG/ML 2 ML VIAL IV PRN (17:29)
[2024-11-24] MEDS: ASCORBIC ACID 500 MG TAB PO SCH (18:00)
[2024-11-24] MEDS: ACETAMINOPHEN 500 MG TAB PO SCH (21:44)
[2024-11-24] MEDS: SENNA 8.6 MG TAB PO SCH (21:44)
[2024-11-24] MEDS: DOCUSATE SODIUM 100 MG CAP PO SCH (21:44)
[2024-11-24] MEDS: ASPIRIN 81 MG ECTAB PO SCH (22:22)
[2024-11-24] MEDS: ceFAZolin 1000MG 1,000 MG/7.5 ML SYR IV SCH (22:23)
[2024-11-25] MEDS: TRANEXAMIC ACID / 0.7% NACL 1,000 MG/100 ML BAG IV SCH
[2024-11-25 06:27] LABS: BUN Creatinine Ratio 22.7 (10-20); Creatinine Clr Calc Pharmacy 15.7 ml/min; Potassium 5.1 mmol/L (3.5-5.1)
[2024-11-25 06:29] LABS: Hematocrit (blood only) 20.5 % (37.0-47.0); Hemoglobin 6.8 g/dl (12.0-16.0); Mean Corpuscular Hemoglobin 32.2 pg (25.0-34.0); Mean Corpuscular Hgb Conc 33.2 g/dL (32.0-36.0); Mean Corpuscular Volume 97.2 fL (80.0-100.0); Mean Platelet Volume 9.6 fL (9.4-12.4); Platelet Count 228 K/uL (130-400); RDW Coefficient of Variation 12.8 % (11.5-14.5); Red Blood Count 2.11 M/uL (4.20-5.40); White Blood Count 11.12 K/ul (4.8-10.8)
[2024-11-25] MEDS ORDERED: SODIUM CHLORIDE 0.9% 100 ML IV PRN ×2 (06:35→09:11)
[2024-11-25] MEDS ORDERED: SODIUM CHLORIDE 0.9% 50 ML IV PRN ×2 (06:35→09:11)
[2024-11-25 06:46] LABS: Basophils # (auto) 0.01 K/uL (0.00-0.20); Basophils % (auto) 0.1 %; Immature Granulocytes # (auto) 0.04 K/uL (0.01-0.20); Immature Granulocytes % (auto) 0.4 %; Lymphocytes # (auto) 0.62 K/uL (1.20-3.40); Lymphocytes % (auto) 5.6 %; Monocytes # (auto) 1.09 K/uL (0.11-0.59); Monocytes % (auto) 9.8 %; Neutrophils # (auto) 9.36 K/uL (1.40-6.50); Neutrophils % (auto) 84.1 %; RBC Morphology Unremarkable
[2024-11-25] MEDS: MULTIVITAMIN TAB PO SCH (07:40)
--- NOTE | 2024-11-25 08:00 | Orthopedic Progress Note ---
Date of Service November 25, 2024 Assessment & Plan (1) Right femoral shaft fracture: Plan: 79-year-old female with multiple medical comorbidities now postop day 1 from IM nailing of a right periprosthetic femur fracture. She got multiple medical comorbidities and been through a lot with multiple medical issues. She looks stable and comfortable. Pain seems to be controlled. She is anemic but without current symptoms. Plan: 1. DVT prophylaxis. We did recommend thigh-high teds, SCDs, and a baby aspirin twice a day for 6 weeks. 2. PT/OT. She can weight-bear as tolerated on this right leg and the knee immobilizer. For the first 2 weeks would like to keep her knee straight without any knee motion. She can weight-bear as tolerated but should be in the knee immobilizer. 3. Pain control. Seems to be doing okay with from the pain standpoint with the current pain regimen. I did really try and limit narcotics to avoid any further confusion issues in this patient with some dementia. 4. Medical management as per the medicine service. 5. Disposition. She is orthopedically okay for discharge anytime medically stable. I will need to see her back 2 to 3 weeks out from surgery date. Any orthopedic questions can directed me at [phone]. (2) Anemia: (3) CKD (chronic kidney disease) stage 4, GFR 15-29 ml/min: Admission and Anticipated Discharge Date Admission Date: November 23, 2024 Subjective 79-year-old female postop day 1 from retrograde IM nail and cerclage cabling of a right periprosthetic femur fracture. He seems to be doing okay this morning. Does not report much in the way of pain. No new complaints. Physical Exam Physical Exam: Physical examination was a pleasant elderly female. She is lying in bed and somewhat of a contorted position which is pretty much her standard. Examination of the right leg reveals a knee immobilizer to be in place. Dressings clean dry and intact. She can dorsiflex and plantarflex her foot appropriately. She is neurologically intact. Results & Data Vital Signs (Past 12 Hours) Vital Signs Temp Pulse Resp BP Pulse Ox O2 Del Method O2 Flow Rate 11/25/24 06:56 37 C 83 16 107/62 95 Nasal Cannula 1 11/25/24 03:00 37.5 C 87 16 105/61 93 Room Air 11/24/24 23:59 36.8 C 82 16 122/65 92 Room Air 11/24/24 21:45 Room Air Laboratory Results Hemoglobin is 6.8. Hematocrit is 20.5. Electrolytes are fairly stable. Her creatinine is elevated but about what is baseline for her. (1) Right femoral shaft fracture Encounter type: initial encounter Fracture alignment: displaced Fracture morphology: comminuted Fracture type: closed Qualified Code(s): S72.351A - Displaced comminuted fracture of shaft of right femur, initial encounter for closed fracture
[2024-11-25] MEDS ORDERED: CARBOHYDRATES FOR HYPOGLYCEMIA PO PRN (09:14)
[2024-11-25] MEDS ORDERED: GLUCAGON FOR INJ 1 MG VIAL SQ PRN (09:14)
[2024-11-25] MEDS ORDERED: GLUCOSE 10 TAB/TUBE PO PRN (09:14)
[2024-11-25] MEDS ORDERED: DEXTROSE 50% 50 ML SYRINGE IV PRN (09:14)
[2024-11-25] MEDS ORDERED: GLUCOSE 40% GEL 15 GM TUBE PO PRN (09:14)
[2024-11-25] MEDS: INSULIN ASPART PER UNIT CHARGE SC SCH (12:11)
--- NOTE | 2024-11-25 12:31 | Hospitalist Progress Note ---
Date of Service November 25, 2024 Assessment & Plan (1) Right femoral shaft fracture: Plan: Orthopedic consultation and recommendations appreciated. Previous right total knee arthroplasty and right total hip arthroplasty. Open reduction internal fixation completed yesterday, November 24. Postoperative day #1. Appreciate orthopedic surgery consultation and recommendations. Pain control measures. (2) Anemia: Plan: Multifactorial. Combined anemia of chronic disease and acute blood loss anemia from the right femur fracture. Hemoglobin is down to 6.8 this morning, November 25. 2 units packed red blood cells ordered. Iron deficiency is noted. Will start oral iron replacement tomorrow, November 26, because she will receive iron in the blood transfusion today. Serial labs (3) CKD (chronic kidney disease) stage 4, GFR 15-29 ml/min: Plan: Acute on chronic kidney disease stage IV. Creatinine initially trended upward but is now at 2.9. Monitor intake and output. Serial labs. Renal ultrasound negative for hydronephrosis or obstruction (4) Osteoporosis, senile: Plan: Suspect right femur fracture is pathological in nature due to underlying osteoporosis. Consider treatment as outpatient (5) Epilepsy: Plan: Known seizure disorder. Continue Lamictal (6) DM type 2 (diabetes mellitus, type 2): Plan: HbA1C 6.8 [11/08/24]. No need for sulfonylurea if taking Lantus. Sliding scale coverage. ADA diet (7) Hypothyroidism: Plan: Stable. Continue current thyroid replacement . TSH WNL in September Plan The patient resides at [facility] and probably will return there sometime next week Admission and Anticipated Discharge Date Admission Date: November 23, 2024 Subjective Alert and oriented. No distress. Unfortunately, hemoglobin is dropped to 6.8. She will receive 2 units packed red blood cells today, November 25. Will recheck hemoglobin level this afternoon around 4 PM. Sliding scale insulin has been adjusted. Urine culture is growing Proteus sensitive to Rocephin, day 3. Iron levels are low but she will receive iron in the blood transfusion today. Will start oral iron replacement tomorrow, November 26. She came from [facility] and will return there sometime next week. Review of Systems 2 Review of Systems: Constitutionalno fever or chills ENTno blurred vision, no double vision, no epistaxis, no sore throat Respiratoryno cough, no wheezing, no shortness of breath Cardiacno palpitations, no chest pain, no syncope Kirit nausea, vomiting, diarrhea, melena, hematochezia GUno urinary retention, no urinary incontinence, no dysuria, no hematuria Musculoskeletalright femur discomfort from fracture and subsequent surgery. Skinno bruising, no rashes, no pruritus Neurono isolated weakness, no paresthesia, no weakness Psychno depression, no anxiety Physical Exam 2 Physical Exam: General-alert and oriented x3, no fever, no chills HEENT-head atraumatic and normocephalic, pupils equal and reactive to light, extraocular muscles intact Neck-no lymphadenopathy or thyromegaly, trachea midline Chest-clear to auscultation. No rales, wheezing or rhonchi Cardiac-regular rate and rhythm, normal S1 and S2 Abdomen-normal bowel sounds, no hepatosplenomegaly Skinpallor noted Extremities-right femur discomfort from underlying fracture and recent surgery. Surgical site is unremarkable.. No significant peripheral edema Neuro-cranial nerves II through XII intact, motor and sensory function within normal limits, strength symmetrical with generalized weakness, no focal deficits Psych-normal affect, normal mood Results & Data Results & Data Vital Signs (Past 12 Hours) Vital Signs Temp Pulse Pulse Resp BP BP Pulse Ox 11/25/24 12:06 36.9 C 82 16 110/94 92 11/25/24 11:51 37.1 C 82 16 114/58 L 93 11/25/24 11:32 37.1 C 81 16 109/61 90 11/25/24 11:21 37.1 C 81 16 113/57 L 93 11/25/24 11:05 11/25/24 10:14 36.9 C 84 16 111/63 90 11/25/24 09:14 37.0 C 84 16 116/65 90 11/25/24 08:44 37.1 C 84 16 116/64 91 11/25/24 08:43 37.1 C 84 18 116/92 92 11/25/24 08:29 37.0 C 85 18 120/70 91 11/25/24 08:09 37.0 C 85 14 124/70 91 11/25/24 06:56 37 C 83 16 107/62 95 11/25/24 03:00 37.5 C 87 16 105/61 93 O2 Del Method O2 Flow Rate 11/25/24 12:06 11/25/24 11:51 11/25/24 11:32 11/25/24 11:21 11/25/24 11:05 Nasal Cannula 1 11/25/24 10:14 11/25/24 09:14 11/25/24 08:44 11/25/24 08:43 11/25/24 08:29 11/25/24 08:09 11/25/24 06:56 Nasal Cannula 1 11/25/24 03:00 Room Air Laboratory Results 11/25/24 05:27 11/25/24 05:27 PG Care Time/CCT Total # of Minutes Spent Total Time Spent with Patient: Total time spent is greater than 50% in coordination of care (as documented) at patient's floor/unit and/or counseling patient: Coding Level of Care Code 76400 SUB INP/OBS CARE 350MIN Diagnoses Right femoral shaft fracture S72.351A Encounter type: initial encounter Fracture alignment: displaced Fracture morphology: comminuted Fracture type: closed Anemia D64.9 CKD (chronic kidney disease) stage 4, GFR 15-29 ml/min N18.4 Osteoporosis, senile M81.0 Epilepsy G40.909 DM type 2 (diabetes mellitus, type 2) E11.9 Diabetes mellitus complication status: without complication Diabetes mellitus halfway insulin use: without halfway use Hypothyroidism E03.9 (1) Right femoral shaft fracture Encounter type: initial encounter Fracture alignment: displaced Fracture morphology: comminuted Fracture type: closed Qualified Code(s): S72.351A - Displaced comminuted fracture of shaft of right femur, initial encounter for closed fracture (6) DM type 2 (diabetes mellitus, type 2) Diabetes mellitus complication status: without complication 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
[2024-11-25] MEDS: traMADol HCL 50 MG TABLET PO PRN (15:59)
[2024-11-25 18:40] LABS: Hemoglobin 10.1 g/dl (12.0-16.0)
[2024-11-26 06:59] LABS: Basophils # (auto) 0.03 K/uL (0.00-0.20); Basophils % (auto) 0.3 %; Eosinophils # (auto) 0.26 K/uL (0.00-0.50); Eosinophils % (auto) 2.4 %; Hematocrit (blood only) 29.4 % (37.0-47.0); Hemoglobin 9.8 g/dl (12.0-16.0); Immature Granulocytes # (auto) 0.08 K/uL (0.01-0.20); Immature Granulocytes % (auto) 0.7 %; Lymphocytes # (auto) 1.28 K/uL (1.20-3.40); Lymphocytes % (auto) 11.9 %; Mean Corpuscular Hemoglobin 30.5 pg (25.0-34.0); Mean Corpuscular Hgb Conc 33.3 g/dL (32.0-36.0); Mean Corpuscular Volume 91.6 fL (80.0-100.0); Mean Platelet Volume 9.3 fL (9.4-12.4); Monocytes # (auto) 0.98 K/uL (0.11-0.59); Monocytes % (auto) 9.1 %; Neutrophils % (auto) 75.6 %; Platelet Count 179 K/uL (130-400); RDW Coefficient of Variation 15.1 % (11.5-14.5); RDW Standard Deviation 50.4 fL (36.4-46.3); Red Blood Count 3.21 M/uL (4.20-5.40); White Blood Count 10.73 K/ul (4.8-10.8)
[2024-11-26 07:17] LABS: BUN Creatinine Ratio 21.2 (10-20); Calcium 8.3 mg/dl (8.6-10.3); Creatinine Clr Calc Pharmacy 16.4 ml/min; Potassium 4.4 mmol/L (3.5-5.1)
--- NOTE | 2024-11-26 07:57 | Orthopedic Progress Note ---
Date of Service November 26, 2024 Assessment & Plan (1) Right femoral shaft fracture: Plan: 79-year-old female with multiple medical comorbidities now 2 days out from IM nailing of a periprosthetic femur fracture. Orthopedically she seems to be doing well. Pain seems to be reasonably controlled. She is neurologically intact. Medical situation seems to stable. Plan: 1. DVT prophylaxis including thigh-high teds, SCDs, aspirin twice a day. 2. PT/OT. She can weight-bear as tolerated in the knee immobilizer. 3. Pain control seems to be doing okay with current pain regimen. 4. Disposition. She is orthopedically stable for discharge anytime. Cezar emerson routine wound care to the right leg. Dressing change once a day. Knee immobilizer at all times. No knee range of motion at this time. I need to see her back 2 to 3 weeks out from surgery date. Any orthopedic questions can be directly [phone]. (2) Anemia: (3) CKD (chronic kidney disease) stage 4, GFR 15-29 ml/min: Admission and Anticipated Discharge Date Admission Date: November 23, 2024 Subjective 79-year-old female postop day 2 from retrograde IM nailing of periprosthetic femur fracture. She appears to be doing reasonably well. Appears comfortable. She is lying in bed. She does follow simple commands. Physical Exam Physical Exam: Physical exam shows a pleasant elderly is slightly demented female. She is lying in bed and appears comfortable. Examination of the right leg reveals a knee immobilizer be in place. Dressings clean dry and intact. She can dorsiflex and plantarflex her foot appropriately. Results & Data Vital Signs (Past 12 Hours) Vital Signs Temp Pulse Resp BP Pulse Ox O2 Del Method O2 Flow Rate 11/26/24 07:50 36.7 C 70 18 121/71 91 Room Air 11/26/24 07:17 Nasal Cannula 1 11/25/24 21:05 Room Air 11/25/24 20:16 36.6 C 73 16 123/67 95 Room Air Laboratory Results Hemoglobin is 9.8. Macro 29.4. Electrolytes are stable. Creatinine is 2.78 which is stable (1) Right femoral shaft fracture Encounter type: initial encounter Fracture alignment: displaced Fracture morphology: comminuted Fracture type: closed Qualified Code(s): S72.351A - Displaced comminuted fracture of shaft of right femur, initial encounter for closed fracture
[2024-11-26] MEDS: IRON SUCROSE 200 MG in SODIUM CHLORIDE 0.9% 100 ML IV ONE (10:09)
--- NOTE | 2024-11-26 15:32 | Hospitalist Progress Note ---
Date of Service November 26, 2024 Assessment & Plan (1) Right femoral shaft fracture: Plan: Orthopedic consultation and recommendations appreciated. Previous right total knee arthroplasty and right total hip arthroplasty. Open reduction internal fixation completed on November 24. Postoperative day #2. Appreciate orthopedic surgery consultation and recommendations. Pain control measures. (2) Anemia: Plan: Multifactorial. Combined anemia of chronic disease and acute blood loss anemia from the right femur fracture. Hemoglobin is down to 6.8 on November 25. 2 units packed red blood cells administered. Hemoglobin is now 9.8. Iron deficiency also noted. Parenteral iron replacement started today, November 26, day 1. Serial labs (3) CKD (chronic kidney disease) stage 4, GFR 15-29 ml/min: Plan: Acute on chronic kidney disease stage IV. Creatinine initially christofer is now at 2.7 and trending downward.. Monitor intake and output. Serial labs. Renal ultrasound negative for hydronephrosis or obstruction (4) Osteoporosis, senile: Plan: Suspect right femur fracture is pathological in nature due to underlying osteoporosis. Consider treatment as outpatient (5) Epilepsy: Plan: Known seizure disorder. Continue Lamictal (6) DM type 2 (diabetes mellitus, type 2): Plan: HbA1C 6.8 [11/08/24]. No need for sulfonylurea if taking Lantus. Sliding scale coverage. ADA diet (7) Hypothyroidism: Plan: Stable. Continue current thyroid replacement . TSH WNL in September Plan Hopeful return to [facility] where she has a bed hold, tomorrow, November 27 Admission and Anticipated Discharge Date Admission Date: November 23, 2024 Subjective Awake and alert. No distress. She received 2 units packed red blood cells yesterday, November 27. Hemoglobin is now 9.8. She is iron deficient. Parenteral iron replacement started today, day 1. Creatinine stable at 2.7. I spoke to the patient's brother, Abbe, today by phone. Hopefully she can return to [facility] tomorrow, November 27. Proteus isolated in the urine. She is on intravenous Rocephin, day 4. It appears she will complete her antibiotic course while hospitalized. Review of Systems 2 Review of Systems: Constitutionalno fever or chills ENTno blurred vision, no double vision, no epistaxis, no sore throat Respiratoryno cough, no wheezing, no shortness of breath Cardiacno palpitations, no chest pain, no syncope Kirit nausea, vomiting, diarrhea, melena, hematochezia GUno urinary retention, no urinary incontinence, no dysuria, no hematuria Musculoskeletalright femur discomfort from fracture and subsequent surgery. Skinno bruising, no rashes, no pruritus Neurono isolated weakness, no paresthesia, no weakness Psychno depression, no anxiety Physical Exam 2 Physical Exam: General-alert and oriented x1, no fever, no chills HEENT-head atraumatic and normocephalic, pupils equal and reactive to light, extraocular muscles intact Neck-no lymphadenopathy or thyromegaly, trachea midline Chest-clear to auscultation. No rales, wheezing or rhonchi Cardiac-regular rate and rhythm, normal S1 and S2 Abdomen-normal bowel sounds, no hepatosplenomegaly Skinpallor noted Extremities-right femur discomfort from underlying fracture and recent surgery. Surgical site is unremarkable.. No significant peripheral edema Neuro-cranial nerves II through XII intact, motor and sensory function within normal limits, strength symmetrical with generalized weakness, no focal deficits Psych-normal affect, normal mood Results & Data Results & Data Vital Signs (Past 12 Hours) Vital Signs Temp Pulse Resp BP Pulse Ox O2 Del Method O2 Flow Rate 11/26/24 14:36 36.7 C 79 18 131/68 95 Room Air 11/26/24 07:50 36.7 C 70 18 121/71 91 Room Air 11/26/24 07:17 Nasal Cannula 1 Laboratory Results 11/26/24 06:19 11/26/24 06:19 PG Care Time/CCT Total # of Minutes Spent Total Time Spent with Patient: Total time spent is greater than 50% in coordination of care (as documented) at patient's floor/unit and/or counseling patient: Coding Level of Care Code 30850 SUB INP/OBS CARE 3/50MIN Diagnoses Right femoral shaft fracture S72.351A Encounter type: initial encounter Fracture alignment: displaced Fracture morphology: comminuted Fracture type: closed Anemia D64.9 CKD (chronic kidney disease) stage 4, GFR 15-29 ml/min N18.4 Osteoporosis, senile M81.0 Epilepsy G40.909 DM type 2 (diabetes mellitus, type 2) E11.9 Diabetes mellitus complication status: without complication Diabetes mellitus fdc insulin use: without predatory animal exterminator use Hypothyroidism E03.9 (1) Right femoral shaft fracture Encounter type: initial encounter Fracture alignment: displaced Fracture morphology: comminuted Fracture type: closed Qualified Code(s): S72.351A - Displaced comminuted fracture of shaft of right femur, initial encounter for closed fracture (6) DM type 2 (diabetes mellitus, type 2) Diabetes mellitus complication status: without complication Diabetes mellitus fdc insulin use: without predatory animal exterminator use Qualified Code(s): E11.9 - Type 2 diabetes mellitus without complications
[2024-11-27 07:42] LABS: Basophils # (auto) 0.03 K/uL (0.00-0.20); Basophils % (auto) 0.3 %; Eosinophils # (auto) 0.45 K/uL (0.00-0.50); Eosinophils % (auto) 4.3 %; Hematocrit (blood only) 28.8 % (37.0-47.0); Hemoglobin 9.6 g/dl (12.0-16.0); Immature Granulocytes # (auto) 0.12 K/uL (0.01-0.20); Immature Granulocytes % (auto) 1.1 %; Lymphocytes % (auto) 12.4 %; Mean Corpuscular Hemoglobin 31.1 pg (25.0-34.0); Mean Corpuscular Hgb Conc 33.3 g/dL (32.0-36.0); Mean Corpuscular Volume 93.2 fL (80.0-100.0); Mean Platelet Volume 9.5 fL (9.4-12.4); Monocytes # (auto) 0.93 K/uL (0.11-0.59); Monocytes % (auto) 8.9 %; Neutrophils # (auto) 7.63 K/uL (1.40-6.50); Platelet Count 202 K/uL (130-400); RDW Coefficient of Variation 15.1 % (11.5-14.5); RDW Standard Deviation 51.5 fL (36.4-46.3); Red Blood Count 3.09 M/uL (4.20-5.40); White Blood Count 10.46 K/ul (4.8-10.8)
[2024-11-27 07:52] VITALS: BP 124/62; PULSE 68; RESP 19; TEMP 98.6; O2SAT 94
[2024-11-27 07:59] LABS: BUN Creatinine Ratio 20.4 (10-20); Calcium 8.4 mg/dl (8.6-10.3); Creatinine Clr Calc Pharmacy 17.2 ml/min; Potassium 4.5 mmol/L (3.5-5.1)
--- NOTE | 2024-11-27 09:02 | Orthopedic Progress Note ---
Date of Service November 27, 2024 Assessment & Plan (1) Right femoral shaft fracture: Plan: 79-year-old female with multiple medical comorbidities and some mild dementia now postop day 3 from retrograde IM nailing of a periprosthetic femur fracture. She seems to be doing pretty well orthopedically. Pains controlled. She is neurologically intact. Plan: 1. DVT prophylaxis including thigh-high teds, SCDs, aspirin twice a day for 6 weeks. 2. PT/OT. She can fully weight-bear as tolerated in the knee immobilizer. Knee immobilizer at all times. No knee range of motion for the first 2 weeks. 3. Medical management as per the medicine service. 4. Pain control. Pain seems to be under pretty well controlled. Try and limit all narcotics if at all possible. 5. Disposition. She is orthopedically okay for discharge anytime medically stable. I did see her back 2 to 3 weeks out from surgery date. Once again she is weightbearing as tolerated in the knee immobilizer. No knee range of motion. (2) Anemia: (3) L1 vertebral fracture: Admission and Anticipated Discharge Date Admission Date: November 23, 2024 Subjective 79-year-old female postop day 3 from retrograde IM nailing of a right periprosthetic femur fracture. She is doing pretty well this morning. She denies any significant pain. No chest pain or shortness of breath. Physical Exam Physical Exam: Physical nation is a pleasant elderly female. That she is lying in bed looks pretty comfortable. Examination of the right leg reveals the dressing and the immobilizer to be in place. She can dorsiflex and plantarflex her foot appropriately. She is neurologically intact. Results & Data Vital Signs (Past 12 Hours) Vital Signs Temp Pulse Resp BP Pulse Ox O2 Del Method 11/27/24 07:52 37.0 C 68 19 124/62 94 Room Air Laboratory Results Hemoglobin is 9.6. Hematocrit 28.8. Electrolytes are stable. (1) Right femoral shaft fracture Encounter type: initial encounter Fracture alignment: displaced Fracture morphology: comminuted Fracture type: closed Qualified Code(s): S72.351A - Displaced comminuted fracture of shaft of right femur, initial encounter for closed fracture
--- NOTE | 2024-11-27 10:47 | Discharge Summary ---
Date of Service November 27, 2024 Admission HPI Per Admitting Provider Radha Magdaleno is a 79 year old female who presents to the ER with right leg pain following an injury on Wednesday. She reports being in a wheelchair being pushed by a friend and getting her leg caught under the wheelchair. Right knee XR at [facility] showed a fracture and she was transferred to [facility] for further care. She denies hitting her head. She reports reflux has been worse since the knee issue but otherwise no other complaints. No fever, chills, respiratory, urinary or gastrointestinal symptoms. No prior history of stroke or heart attack. No chest pain or shortness of breath on exertion. She reports having CKD previously under the care of [facility] nephrology but not seen for many years as [facility] do all her care now. She does not recall having anemia but denies any known blood loss or melena. She was previously under the [facility] team although her insurance dictates she has to now come under [facility]. Admission Exam (Per Admitting) Constitutional The patient is awake, alert and oriented 3, well developed and well nourished, normocephalic and atraumatic, lying in bed and in no acute distress. HEENT--PERRL, EOMI, mucous membranes and oropharynx mildly dry Neck--supple. No JVD. No bruits. Thyroid normal, trachea midline, no adenopathy. Heart--normal S1 and S2. No murmurs, rubs or gallops. Lungs--clear bilaterally, no respiratory distress, no accessory muscle use. Abdomen--normal bowel sounds and soft. Extremities--no cyanosis or clubbing. No edema. Dermatologic--normal skin turgor, normal color, no abnormal lymph nodes, no rash. Neurologic--cranial nerves II through XII grossly intact. Rheumatologic--normal range of motion. Psychiatric--normal affect. Discharge Data Consultations 11/23/24 18:00 Consult Orthopedic Surgery Routine 11/23/24 18:14 ED Decision to Admit Stat Procedures Performed Operation Date: 11/24/24 07:00 Actual Procedures p Right retrograde nail femur right femur periprosthetic femur fracture with cerclage cabling(Right) - Jose Bergeron MD Hospital Course (1) Right femoral shaft fracture: Orthopedic consultation and recommendations appreciated. Previous right total knee arthroplasty and right total hip arthroplasty. Open reduction internal fixation completed on November 24. . Appreciate orthopedic surgery consultation and recommendations. Pain control measures. (2) Anemia: Multifactorial. Combined anemia of chronic disease and acute blood loss anemia from the right femur fracture. Hemoglobin is down to 6.8 on November 25. 2 units packed red blood cells administered. Hemoglobin is now 9.8. Iron deficiency also noted. Parenteral iron replacement started today, November 26, day 1. Serial labs (3) CKD (chronic kidney disease) stage 4, GFR 15-29 ml/min: Acute on chronic kidney disease stage IV. Creatinine initially christofer is now at 2.7 and trending downward.. Monitor intake and output. Serial labs. Renal ultrasound negative for hydronephrosis or obstruction (4) Osteoporosis, senile: Suspect right femur fracture is pathological in nature due to underlying osteoporosis. Consider treatment as outpatient (5) Epilepsy: Known seizure disorder. Continue Lamictal (6) DM type 2 (diabetes mellitus, type 2): HbA1C 6.8 [11/08/24]. No need for sulfonylurea if taking Lantus. Sliding scale coverage. ADA diet (7) Hypothyroidism: Stable. Continue current thyroid replacement . TSH WNL in September Plan d/c to [facility] where she has a bed hold, Coding Level of Care Code 54321 INP/OBS DISCH >30 MIN Diagnoses Right femoral shaft fracture S72.351A Encounter type: initial encounter Fracture alignment: displaced Fracture morphology: comminuted Fracture type: closed Anemia D64.9 CKD (chronic kidney disease) stage 4, GFR 15-29 ml/min N18.4 Osteoporosis, senile M81.0 Epilepsy G40.909 DM type 2 (diabetes mellitus, type 2) E11.9 Diabetes mellitus complication status: without complication Diabetes mellitus longterm insulin use: without longterm use Hypothyroidism E03.9 Time Spent (min) 35
== END 2024-11-27 14:16 | DRG 481 ==
LOC: ED 15:26 → SUATTDRO 18:34 → EDINP 18:34 → 3N 20:42

== ENCOUNTER 2025-09-06 11:21 | Observation (INO) ==
[2025-09-06 12:00] LABS: Hematocrit (blood only) 25.1 % (37.0-47.0); Hemoglobin 8.8 g/dl (12.0-16.0); Immature Granulocytes # (auto) 0.04 K/uL (0.01-0.20); Immature Granulocytes % (auto) 0.3 %; Mean Corpuscular Hemoglobin 31.9 pg (25.0-34.0); Mean Corpuscular Volume 90.9 fL (80.0-100.0); Platelet Count 182 K/uL (130-400); RDW Standard Deviation 42.5 fL (36.4-46.3); Red Blood Count 2.76 M/uL (4.20-5.40); White Blood Count 11.82 K/ul (4.8-10.8)
[2025-09-06 12:20] LABS: Alanine Aminotransferase 7.0 U/L (7-52); Albumin Globulin Ratio 1.1 (0.9-2); Albumin Level 3.3 gm/dl (3.4-5.0); Alkaline Phosphatase 144.0 U/L (34-104); Anion Gap 10.0 (3-11); Bilirubin,Total 0.4 mg/dl (0.2-1.0); Blood Urea Nitrogen 75.0 mg/dl (6-23); Calcium 9.3 mg/dl (8.6-10.3); Carbon Dioxide 19.0 mmol/L (21-32); Chloride 97.0 mmol/L (98-107); Creatine Kinase 178.0 U/L (26-192); Creatinine Clr Calc Pharmacy 13.7 ml/min; Globulin 3.1 gm/dl (2.5-4.0); Glucose 209.0 mg/dl (70-99(Fasting)); Lipase 39.0 U/L (11-82); Potassium 4.5 mmol/L (3.5-5.1); Sodium 126.0 mmol/L (136-145); Total Protein 6.4 gm/dl (6.0-8.3)
[2025-09-06 12:31] LABS: INR 1.0 (0.9-1.1); Partial Thromboplastin Time 22 Seconds (21-31); Prothrombin Time 10.8 Seconds (9.0-12.0)
--- NOTE | 2025-09-06 12:48 | CT Scan Report ---
MAXILLOFACIAL CT WITHOUT CONTRAST CLINICAL HISTORY: Trauma. COMPARISON STUDY: Facial bone CT April 03, 2020. Head CT November 28, 2022. TECHNIQUE: A maxillofacial CT was performed without IV contrast. Coronal and sagittal reformats were viewed. Automated exposure control was utilized for the study. A dose lowering technique was utiliz ed adhering to the principles of ALARA. FINDINGS: Right facial contusion and forehead contusions are noted. The globes are intact. There is n o retrobulbar hematoma. No acute facial bone fracture is identified. Alignment of the temporomandibul ar joints is anatomic. Numerous teeth are absent. There are several dental caries and periapical luce ncies within several maxillary teeth. No skull base fracture is present. Pterygoid plates are intact. There is mild cortical thickening of the left maxillary and ethmoid sinuses. IMPRESSION: No acute facial fracture. Right facial and forehead contusions. ACT 112: Negative or not required by law. Electronically signed by: Aakash Jaramillo M.D. 09/06/2025 12:46 PM
--- NOTE | 2025-09-06 12:56 | CT Scan Report ---
CT head/brain wo con CLINICAL HISTORY: 80 years-old Female with trauma. Acute head trauma TECHNIQUE: Multiple axial CT images of the head were obtained without contrast. A dose lowering tech nique was utilized adhering to the principles of ALARA. COMPARISON: 11/28/2022 FINDINGS: Motion degraded exam. No acute intracranial hemorrhage, midline shift, intracranial mass, hydrocephal us, territorial ischemia or abnormal extra-axial collection. Involutional changes with white matter h ypodensities suggestive of chronic microvascular ischemic disease. 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 Cerebellar atro phy. The calvarium is intact. Small anterior frontal scalp contusion. Mild mucosal thickening of the paran meme sinuses. Mastoid air cells are clear. IMPRESSION: No acute intracranial abnormality or calvarial fracture. ACT 112: Negative or not required by law. The above report was generated using voice recognition software. It may contain grammatical, syntax o r spelling errors. Electronically signed by: Adan Angel M.D. 09/06/2025 12:54 PM
--- NOTE | 2025-09-06 12:56 | Emergency Department Note ---
Impression & Plan Trauma, Fall, Acute kidney injury superimposed on chronic kidney disease, Elevated troponin, Cervical spine fracture, Fracture of thoracic spine, Contusion of face ED Provider Note HISTORY OF PRESENT ILLNESS: Patient is a 80-year-old female presenting as an injury alert. Patient presents from her side with EMS. Per report, the patient fell out of bed this morning and landed on her left side. Patient does not remember the events. She is on no anticoagulation or antiplatelet therapies. Staff was able to assist her up into bed and called 911. Patient is complaining of left-sided facial pain and left chest pain. Denies any numbness or tingling or weakness in her extremities. She denies any abdominal pain, nausea or vomiting. She denies any shortness of breath. ROS: as above PHYSICAL EXAM: Primary Survey Airway: Intact Breathing: Normal, breath sounds equal bilaterally Circulation: Skin warm, distal pulses 2+, capillary refill less than 2 seconds Disability Pupils: Equal and reactive to light, 3 mm, brisk GCS: 15, E = 4, V=5, M= 6 Motor Function: Moves all extremities. Sensory: No deficits Secondary Survey GEN: Well developed and well-nourished HENT: Head: Contusion to the forehead and left face. Abrasion and underlying ecchymosis to top left forehead at hairline. Mouth/Throat: Midface stable. No malocclusion. Patient has tenderness to palpation of the left maxillary region. Eyes: EOMI. Pupils are 3 mm, round and reactive bilaterally. Nose: No nasal septal hematoma. No gross deformity. Neck: Cervical collar placed on assessment. No midline C-spine tenderness. No step-offs. Cardiovascular: RRR. Pulses present in all 4 extremities. Pulmonary/Chest: BS equal bilaterally. No tenderness or ecchymosis. Abdomen: No tenderness or ecchymosis. Musculoskeletal: Pelvis: No instability. Patient is able to straight leg raise bilaterally. Back: No step-offs or deformities. Noted to have upper thoracic and mid thoracic midline tenderness palpation. Extremities: No gross deformities. No TTP. Skin: Laceration as above. Neuro: No focal neurological deficits. GCS as above. Psych: Normal mood and affect. MDM: - Vitals signs stable. - History obtained via patient and EMS. History as above. - Chronic conditions affecting care: HLD; GERD; CKD; CVA; DM-2; PAD - Differential diagnoses include, but are not limited to: intracranial hemorrhage; skull fracture; cervical spine fracture; rib fractures; pneumothorax - Order placed for continuous cardiac monitoring. At this time, monitor showed rate of 70 bpm with normal sinus rhythm, per my interpretation. - External medical records reviewed. Discharge summary dated 11/27/2024 was reviewed. Patient was admitted that time for right femoral shaft fracture, CKD and anemia. - EKG image interpreted by myself showed normal sinus rhythm. Rate 68 bpm. QT 402. No acute ischemic changes. - Laboratory workup interpreted by myself showed leukocytosis (WBC 11.82); chronic anemia (Hgb 8.8); normal PT/INR; hyponatremia (Na 126); JEFFERSON on CKD (Cr 3.29); elevated troponin (70.5); normal CK; normal AST/ALT; normal lipase - CXR image reviewed interpreted by myself was negative for pneumothorax, per my interpretation. Radiology notes increased rounding in the left midlung concerning for atelectasis versus early pneumonia. - Xray pelvis negative for acute fracture. - CT head wo contrast negative for acute intracranial pathology. - CT face wo contrast for acute fracture. Did have right facial and forehead contusions. - CT cervical spine wo contrast showed fractures to the anterior ring of C1 which are age-indeterminate but new since November 2022. Radiology notes subacute or chronic fracture is favored. No other acute fractures. - CT chest wo contrast showed acute versus subacute fracture of the T10 and T11 vertebral bodies without retropulsion. Trace left pleural effusion. - CT abdomen/pelvis wo contrast showed no acute traumatic findings in the abdomen or pelvis. Noted to have an acute nondisplaced lateral right 10th rib fracture. Noted have moderate to large amounts of stool within the colon and rectum. - Given patient's traumatic findings, she was upgraded to a trauma alert at 13:26. - Discussed case with ortho spine. They came to evaluate patient at recommendations at 1400. Reports that the patient should remain in the collar. States that the imaging findings suggest more likely a chronic fracture. However, should continue with C-spine precautions and collar at this time until he can reassess her. Report no surgical interventions at this time. - Discussion was had with telephonic nurse case manager about patient's case and need for admission - Hospitalist consulted for admission [facility] and [facility]. ASSESSMENT AND PLAN: Diagnosis: Trauma; fall; JEFFERSON on CKD; elevated troponin; cervical spine fracture; thoracic spine fracture; facial contusion Plan: admit Past Med/Surg History Problem List (Updated 09/06/25 @ 15:28 by Kasia Mills MD) Contusion of face (Acute) Fracture of thoracic spine (Acute) Cervical spine fracture (Acute) Elevated troponin (Acute) Acute kidney injury superimposed on chronic kidney disease (Acute) Fall (Acute) Trauma (Acute) Closed C1 fracture Compression fracture of thoracic vertebra Anemia Right femoral shaft fracture (Acute) L1 vertebral fracture CKD (chronic kidney disease) stage 4, GFR 15-29 ml/min Weakness (Acute) Diarrhea (Acute) Diarrhea Closed fracture of pedicle of lumbar vertebra (Acute) Hyperglycemia (Acute) Lumbar disc disease with radiculopathy (Acute) UTI (urinary tract infection), uncomplicated Spinal stenosis, lumbar L3 vertebral fracture Seizure disorder Ankylosing spondylitis (Acute) Asymptomatic hyperuricemia (Acute) Chronic lower back pain (Acute) Chronic reflux esophagitis (Acute) Elevated blood pressure reading in office without diagnosis of hypertension (Acute) Osteoarthritis of shoulder (Acute) Osteoporosis, senile (Acute) PAD (peripheral artery disease) (Acute) Stasis dermatitis (Acute) Hyperglycemia Bilateral edema of lower extremity (Acute) Hypotension (Acute) Epilepsy (Chronic) Hypothyroidism (Chronic) DM type 2 (diabetes mellitus, type 2) (Chronic) Carotid stenosis (Chronic) Cerebrovascular disease, arteriosclerotic, post-stroke (Chronic) Vertebral fracture, osteoporotic (Chronic) Migraine (Chronic) GERD (gastroesophageal reflux disease) (Chronic) CKD (chronic kidney disease), stage III (Chronic) Dyslipidemia (Chronic) Osteoarthritis (Chronic) Venous stasis ulcer of right lower extremity (Acute) Medical History Hyperglycemia Abdominal pain Hyperglycemia 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 Rhabdomyolysis Rhabdomyolysis Cellulitis Screening for skin condition Surgical History S/P rotator cuff repair S/P cholecystectomy History of bilateral knee replacement History of left-sided carotid endarterectomy H/O total knee replacement Family History Mother Transitional cell carcinoma of bladder Diabetes Cardiac disorder Hypertension Ovarian cancer Grandmother Cancer Uncle Cancer Father Cardiac disorder Hypertension Asthma Social History Smoking Status: Never smoker Tobacco Type: Declines Second Hand Exposure: No; Do You Dip or Chew Tobacco: No; Hx Alcohol Use: No Hx Substance Use: No Preferred Language: [place] Communication Ability: Impaired Chain Splitter Required: No Beliefs That Will Affect Care: None marital status: / Current Living Situation: Retirement Current Living Situation Comment: [employer] Member tuesdays How many Children do You have: 2 Feels Safe at Home: Yes Assistive Devices: Wheelchair Allergies Allergies Allergy/AdvReac Type Severity Reaction Status Date / Time omeprazole Allergy Severe throat Verified 11/28/22 02:26 swelling alendronate sodium Allergy Unknown GI SYMPTOMS Verified 11/28/22 02:26 oxytocin Allergy Unknown Nausea and Verified 11/28/22 02:26 vomiting pioglitazone Allergy Unknown Edema BLE Verified 11/28/22 02:26 prednisone Allergy Unknown Nausea and Verified 11/28/22 02:26 vomiting risedronate sodium Allergy Unknown Headache Verified 11/28/22 02:26 and weakness sitagliptin Allergy Unknown Itching Verified 11/28/22 02:26 valproic acid Allergy Unknown Affected Verified 11/28/22 02:26 her memory divalproex sodium Allergy Unknown Verified 11/28/22 02:26 [From Depakote] fluoxetine [From Prozac] Allergy Unknown Verified 11/28/22 02:26 codeine AdvReac Unknown NAUSEA/VOMI Verified 11/28/22 02:26 TING morphine AdvReac Unknown nausea/vomi Verified 11/28/22 02:26 ting oxycodone AdvReac Unknown nausea/vomi Verified 11/28/22 02:26 ting Home Meds Home Medications Medication Instructions Recorded Confirmed acetaminophen 650 mg 650 mg PO Q8H PRN FEVER/PAIN 05/19/22 11/23/24 tablet,extended release (Tylenol 8 Hour) ascorbic acid (vitamin C) 1,000 mg 1,000 mg PO QAM 05/19/22 11/23/24 tablet (Vitamin C) carboxymethylcellulose 0.5 1 drp ophthalmic (eye) BID 11/23/24 11/23/24 %-glycerin 0.9 % (PF) eye drops (Refresh Tears PF) insulin glargine 100 unit/mL 8 unit subcut DAILY 11/23/24 11/23/24 subcutaneous solution (Lantus U-100 Insulin) lamotrigine 100 mg tablet 100 mg PO BID 11/23/24 11/23/24 levothyroxine 125 mcg tablet 125 mcg PO DAILY 11/23/24 11/23/24 lidocaine 4 % topical patch 1 patch topical DAILY 11/23/24 11/23/24 paroxetine HCl 20 mg tablet 20 mg PO DAILY 11/23/24 11/23/24 polyethylene glycol 3350 17 17 g PO DAILY PRN Constipation 11/23/24 11/23/24 gram/dose oral powder risperidone 0.25 mg tablet 0.25 mg PO AMHS 11/23/24 11/23/24 sennosides 8.6 mg-docusate sodium 1 tab-cap PO DAILY 11/23/24 11/23/24 50 mg tablet (Senna-S) tramadol 50 mg tablet 50 mg PO Q8 PRN PAIN 4-10 11/23/24 11/23/24 cholecalciferol (vitamin D3) 125 125 mcg PO DAILY 11/30/24 11/30/24 mcg (5,000 unit) tablet Previous Rx's Medication Instructions Recorded Shower Chair #1 ea 06/03/20 aspirin 81 mg tablet,delayed 81 mg PO QAM #30 tabs 06/08/22 release Results & Data (ED) Vital Signs Vital Signs - 24 hr 09/06/25 11:29 09/06/25 11:40 09/06/25 11:42 Temperature Temperature Source Pulse Rate 71 77 Pulse Rate [Left Finger] 76 Pulse Rate from SpO2 Sensor Pulse Rhythm Regular Respiratory Rate 18 18 Blood Pressure Blood Pressure [Right Arm] 108/56 L Blood Pressure Mean Blood Pressure Mean [Right Arm] 73 Pulse Oximetry 96 95 Oxygen Delivery Method Room Air Room Air Oxygen Flow Rate Sepsis Recent Fever Within 48 Hours Sepsis New/Unexplained Change in Mental Status Sepsis Action Taken by Nursing 09/06/25 11:43 09/06/25 12:45 09/06/25 12:51 Temperature 36.6 C Temperature Source Oral Pulse Rate 73 72 73 Pulse Rate [Left Finger] Pulse Rate from SpO2 Sensor 72 73 Pulse Rhythm Respiratory Rate 18 12 13 Blood Pressure 108/56 L Blood Pressure [Right Arm] Blood Pressure Mean 73 Blood Pressure Mean [Right Arm] Pulse Oximetry 96 92 90 Oxygen Delivery Method Room Air Oxygen Flow Rate Sepsis Recent Fever Within 48 Hours No Sepsis New/Unexplained Change in Mental Status No Sepsis Action Taken by Nursing No Action Required 09/06/25 13:00 09/06/25 13:00 09/06/25 13:00 Temperature Temperature Source Pulse Rate Pulse Rate [Left Finger] Pulse Rate from SpO2 Sensor Pulse Rhythm Respiratory Rate Blood Pressure 136/64 136/64 136/64 Blood Pressure [Right Arm] Blood Pressure Mean 107 107 107 Blood Pressure Mean [Right Arm] Pulse Oximetry Oxygen Delivery Method Oxygen Flow Rate Sepsis Recent Fever Within 48 Hours Sepsis New/Unexplained Change in Mental Status Sepsis Action Taken by Nursing 09/06/25 13:00 09/06/25 13:00 09/06/25 13:00 Temperature Temperature Source Pulse Rate 76 Pulse Rate [Left Finger] Pulse Rate from SpO2 Sensor 76 Pulse Rhythm Respiratory Rate 15 Blood Pressure 136/64 136/64 Blood Pressure [Right Arm] Blood Pressure Mean 107 107 Blood Pressure Mean [Right Arm] Pulse Oximetry 93 Oxygen Delivery Method Oxygen Flow Rate Sepsis Recent Fever Within 48 Hours Sepsis New/Unexplained Change in Mental Status Sepsis Action Taken by Nursing 09/06/25 13:12 09/06/25 13:15 09/06/25 13:15 Temperature Temperature Source Pulse Rate 72 72 Pulse Rate [Left Finger] Pulse Rate from SpO2 Sensor 70 71 Pulse Rhythm Respiratory Rate 13 13 Blood Pressure 121/60 Blood Pressure [Right Arm] Blood Pressure Mean 94 Blood Pressure Mean [Right Arm] Pulse Oximetry 98 94 Oxygen Delivery Method Oxygen Flow Rate Sepsis Recent Fever Within 48 Hours Sepsis New/Unexplained Change in Mental Status Sepsis Action Taken by Nursing 09/06/25 13:15 09/06/25 13:15 09/06/25 13:15 Temperature Temperature Source Pulse Rate Pulse Rate [Left Finger] Pulse Rate from SpO2 Sensor Pulse Rhythm Respiratory Rate Blood Pressure 121/60 121/60 121/60 Blood Pressure [Right Arm] Blood Pressure Mean 94 94 94 Blood Pressure Mean [Right Arm] Pulse Oximetry Oxygen Delivery Method Oxygen Flow Rate Sepsis Recent Fever Within 48 Hours Sepsis New/Unexplained Change in Mental Status Sepsis Action Taken by Nursing 09/06/25 13:15 09/06/25 13:21 09/06/25 13:22 Temperature 36.6 C Temperature Source Pulse Rate 70 70 Pulse Rate [Left Finger] Pulse Rate from SpO2 Sensor 69 Pulse Rhythm Respiratory Rate 14 18 Blood Pressure 121/60 121/60 Blood Pressure [Right Arm] Blood Pressure Mean 94 Blood Pressure Mean [Right Arm] Pulse Oximetry 95 93 Oxygen Delivery Method Room Air Oxygen Flow Rate 0 Sepsis Recent Fever Within 48 Hours Sepsis New/Unexplained Change in Mental Status Sepsis Action Taken by Nursing 09/06/25 13:22 09/06/25 13:22 09/06/25 13:29 Temperature Temperature Source Pulse Rate Pulse Rate [Left Finger] 70 70 Pulse Rate from SpO2 Sensor Pulse Rhythm Respiratory Rate 18 18 Blood Pressure Blood Pressure [Right Arm] 121/60 106/58 L Blood Pressure Mean Blood Pressure Mean [Right Arm] 80 74 Pulse Oximetry 93 94 Oxygen Delivery Method Room Air Room Air Room Air Oxygen Flow Rate Sepsis Recent Fever Within 48 Hours Sepsis New/Unexplained Change in Mental Status Sepsis Action Taken by Nursing 09/06/25 13:30 09/06/25 13:30 09/06/25 13:30 Temperature Temperature Source Pulse Rate Pulse Rate [Left Finger] Pulse Rate from SpO2 Sensor Pulse Rhythm Respiratory Rate Blood Pressure 106/58 L 106/58 L 106/58 L Blood Pressure [Right Arm] Blood Pressure Mean 72 72 72 Blood Pressure Mean [Right Arm] Pulse Oximetry Oxygen Delivery Method Oxygen Flow Rate Sepsis Recent Fever Within 48 Hours Sepsis New/Unexplained Change in Mental Status Sepsis Action Taken by Nursing 09/06/25 13:30 09/06/25 13:30 09/06/25 13:30 Temperature Temperature Source Pulse Rate 68 Pulse Rate [Left Finger] Pulse Rate from SpO2 Sensor 68 Pulse Rhythm Respiratory Rate 14 Blood Pressure 106/58 L 106/58 L Blood Pressure [Right Arm] Blood Pressure Mean 72 72 Blood Pressure Mean [Right Arm] Pulse Oximetry 94 Oxygen Delivery Method Oxygen Flow Rate Sepsis Recent Fever Within 48 Hours Sepsis New/Unexplained Change in Mental Status Sepsis Action Taken by Nursing 09/06/25 13:42 09/06/25 13:45 09/06/25 13:45 Temperature Temperature Source Pulse Rate 69 69 Pulse Rate [Left Finger] Pulse Rate from SpO2 Sensor 70 Pulse Rhythm Respiratory Rate 20 Blood Pressure 111/54 L Blood Pressure [Right Arm] Blood Pressure Mean 68 Blood Pressure Mean [Right Arm] Pulse Oximetry 96 Oxygen Delivery Method Oxygen Flow Rate Sepsis Recent Fever Within 48 Hours Sepsis New/Unexplained Change in Mental Status Sepsis Action Taken by Nursing 09/06/25 13:45 09/06/25 13:45 09/06/25 13:45 Temperature Temperature Source Pulse Rate Pulse Rate [Left Finger] Pulse Rate from SpO2 Sensor Pulse Rhythm Respiratory Rate Blood Pressure 111/54 L 111/54 L 111/54 L Blood Pressure [Right Arm] Blood Pressure Mean 68 68 68 Blood Pressure Mean [Right Arm] Pulse Oximetry Oxygen Delivery Method Oxygen Flow Rate Sepsis Recent Fever Within 48 Hours Sepsis New/Unexplained Change in Mental Status Sepsis Action Taken by Nursing 09/06/25 13:45 09/06/25 13:51 09/06/25 14:00 Temperature Temperature Source Pulse Rate 68 71 Pulse Rate [Left Finger] Pulse Rate from SpO2 Sensor 68 72 Pulse Rhythm Respiratory Rate 13 13 Blood Pressure 111/54 L Blood Pressure [Right Arm] Blood Pressure Mean 68 Blood Pressure Mean [Right Arm] Pulse Oximetry 95 97 Oxygen Delivery Method Oxygen Flow Rate Sepsis Recent Fever Within 48 Hours Sepsis New/Unexplained Change in Mental Status Sepsis Action Taken by Nursing 09/06/25 14:00 09/06/25 14:00 09/06/25 14:00 Temperature Temperature Source Pulse Rate Pulse Rate [Left Finger] Pulse Rate from SpO2 Sensor Pulse Rhythm Respiratory Rate Blood Pressure 127/61 127/61 127/61 Blood Pressure [Right Arm] Blood Pressure Mean 88 88 88 Blood Pressure Mean [Right Arm] Pulse Oximetry Oxygen Delivery Method Oxygen Flow Rate Sepsis Recent Fever Within 48 Hours Sepsis New/Unexplained Change in Mental Status Sepsis Action Taken by Nursing 09/06/25 14:00 09/06/25 14:00 09/06/25 14:12 Temperature Temperature Source Pulse Rate 68 Pulse Rate [Left Finger] Pulse Rate from SpO2 Sensor 68 Pulse Rhythm Respiratory Rate 13 Blood Pressure 127/61 127/61 Blood Pressure [Right Arm] Blood Pressure Mean 88 88 Blood Pressure Mean [Right Arm] Pulse Oximetry 99 Oxygen Delivery Method Oxygen Flow Rate Sepsis Recent Fever Within 48 Hours Sepsis New/Unexplained Change in Mental Status Sepsis Action Taken by Nursing 09/06/25 14:15 09/06/25 14:15 09/06/25 14:15 Temperature Temperature Source Pulse Rate Pulse Rate [Left Finger] Pulse Rate from SpO2 Sensor Pulse Rhythm Respiratory Rate Blood Pressure 102/48 L 102/48 L 102/48 L Blood Pressure [Right Arm] Blood Pressure Mean 64 64 64 Blood Pressure Mean [Right Arm] Pulse Oximetry Oxygen Delivery Method Oxygen Flow Rate Sepsis Recent Fever Within 48 Hours Sepsis New/Unexplained Change in Mental Status Sepsis Action Taken by Nursing 09/06/25 14:15 09/06/25 14:15 09/06/25 14:15 Temperature Temperature Source Pulse Rate 75 Pulse Rate [Left Finger] Pulse Rate from SpO2 Sensor 72 Pulse Rhythm Respiratory Rate 14 Blood Pressure 102/48 L 102/48 L Blood Pressure [Right Arm] Blood Pressure Mean 64 64 Blood Pressure Mean [Right Arm] Pulse Oximetry 99 Oxygen Delivery Method Oxygen Flow Rate Sepsis Recent Fever Within 48 Hours Sepsis New/Unexplained Change in Mental Status Sepsis Action Taken by Nursing 09/06/25 14:21 09/06/25 14:22 09/06/25 14:30 Temperature Temperature Source Pulse Rate 70 72 Pulse Rate [Left Finger] 73 Pulse Rate from SpO2 Sensor 70 72 Pulse Rhythm Respiratory Rate 13 18 11 L Blood Pressure Blood Pressure [Right Arm] 123/56 L Blood Pressure Mean Blood Pressure Mean [Right Arm] 78 Pulse Oximetry 99 99 99 Oxygen Delivery Method Room Air Oxygen Flow Rate Sepsis Recent Fever Within 48 Hours Sepsis New/Unexplained Change in Mental Status Sepsis Action Taken by Nursing 09/06/25 14:30 09/06/25 14:30 09/06/25 14:30 Temperature Temperature Source Pulse Rate Pulse Rate [Left Finger] Pulse Rate from SpO2 Sensor Pulse Rhythm Respiratory Rate Blood Pressure 123/56 L 123/56 L 123/56 L Blood Pressure [Right Arm] Blood Pressure Mean 87 87 87 Blood Pressure Mean [Right Arm] Pulse Oximetry Oxygen Delivery Method Oxygen Flow Rate Sepsis Recent Fever Within 48 Hours Sepsis New/Unexplained Change in Mental Status Sepsis Action Taken by Nursing 09/06/25 14:30 09/06/25 14:30 Temperature Temperature Source Pulse Rate Pulse Rate [Left Finger] Pulse Rate from SpO2 Sensor Pulse Rhythm Respiratory Rate Blood Pressure 123/56 L 123/56 L Blood Pressure [Right Arm] Blood Pressure Mean 87 87 Blood Pressure Mean [Right Arm] Pulse Oximetry Oxygen Delivery Method Oxygen Flow Rate Sepsis Recent Fever Within 48 Hours Sepsis New/Unexplained Change in Mental Status Sepsis Action Taken by Nursing Laboratory Data 09/06/25 11:46 09/06/25 11:46 Lab Results 09/06/25 09/06/25 09/06/25 Range/Units 11:46 11:52 11:55 WBC 11.82 H (4.8-10.8) K/ul RBC 2.76 L (4.20-5.40) M/uL Hgb 8.8 L (12.0-16.0) g/dl POC Hgb 8.5 L (12.0-16.0) g/dl Hct 25.1 L (37.0-47.0) % POC Hct 25 L (37-47) % MCV 90.9 (80.0-100.0) fL MCH 31.9 (25.0-34.0) pg MCHC 35.1 (32.0-36.0) g/dL RDW Std Deviation 42.5 (36.4-46.3) fL RDW Coeff of Tony 12.9 (11.5-14.5) % Plt Count 182 (130-400) K/uL MPV 9.0 L (9.4-12.4) fL Immature Gran % (Auto) 0.3 % Neut % (Auto) 80.4 % Lymph % (Auto) 9.4 % Valley % (Auto) 9.4 % Eos % (Auto) 0.3 % Baso % (Auto) 0.2 % Neut # (Auto) 9.50 H (1.40-6.50) K/uL Lymph # (Auto) 1.11 L (1.20-3.40) K/uL Valley # (Auto) 1.11 H (0.11-0.59) K/uL Eos # (Auto) 0.04 (0.00-0.50) K/uL Baso # (Auto) 0.02 (0.00-0.20) K/uL Immature Gran # (Auto) 0.04 (0.01-0.20) K/uL PT 10.8 (9.0-12.0) Seconds INR 1.0 (0.9-1.1) APTT 22 (21-31) Seconds PTT Ratio 0.8 POC Sodium 128 L (135-144) mmol/L Sodium 126 L (136-145) mmol/L POC Potassium 4.5 (3.3-5.0) mmol/L Potassium 4.5 (3.5-5.1) mmol/L POC Chloride 97 L (101-112) mmol/L Chloride 97 L (98-107) mmol/L Carbon Dioxide 19 L (21-32) mmol/L POC Total CO2 19 L (24-31) mmol/L Anion Gap 10 (3-11) POC Anion Gap 17.0 (16-25) mmol/L POC BUN 72 H (7-18) mg/dl BUN 75 H (6-23) mg/dl Creatinine 3.29 H (0.6-1.2) mg/dl POC Creatinine 3.5 H (0.6-1.3) mg/dl Est Cr Clr Drug Dosing 13.7 ml/min eGFR 13.73 BUN/Creatinine Ratio 22.8 H (10-20) Glucose 209 H (70-99(Fasting)) mg/dl POC Glucose 209 H (70-99) mg/dl POC Glucose (other) 201 H (70-99) mg/dl Calcium 9.3 (8.6-10.3) mg/dl POC Ioniz Calcium Sophie 1.25 (1.12-1.32) mmol/l Total Bilirubin 0.4 (0.2-1.0) mg/dl AST 20 (13-39) U/L ALT 7 (7-52) U/L Alkaline Phosphatase 144 H (34-104) U/L Total Creatine Kinase 178 (26-192) U/L Troponin I High Sens 70.5 H* (0-14) pg/ml Total Protein 6.4 (6.0-8.3) gm/dl Albumin 3.3 L (3.4-5.0) gm/dl Globulin 3.1 (2.5-4.0) gm/dl Albumin/Globulin Ratio 1.1 (0.9-2) Lipase 39 (11-82) U/L 09/06/25 Range/Units 14:45 WBC (4.8-10.8) K/ul RBC (4.20-5.40) M/uL Hgb (12.0-16.0) g/dl POC Hgb (12.0-16.0) g/dl Hct (37.0-47.0) % POC Hct (37-47) % MCV (80.0-100.0) fL MCH (25.0-34.0) pg MCHC (32.0-36.0) g/dL RDW Std Deviation (36.4-46.3) fL RDW Coeff of Tony (11.5-14.5) % Plt Count (130-400) K/uL MPV (9.4-12.4) fL Immature Gran % (Auto) % Neut % (Auto) % Lymph % (Auto) % Valley % (Auto) % Eos % (Auto) % Baso % (Auto) % Neut # (Auto) (1.40-6.50) K/uL Lymph # (Auto) (1.20-3.40) K/uL Valley # (Auto) (0.11-0.59) K/uL Eos # (Auto) (0.00-0.50) K/uL Baso # (Auto) (0.00-0.20) K/uL Immature Gran # (Auto) (0.01-0.20) K/uL PT (9.0-12.0) Seconds INR (0.9-1.1) APTT (21-31) Seconds PTT Ratio POC Sodium (135-144) mmol/L Sodium (136-145) mmol/L POC Potassium (3.3-5.0) mmol/L Potassium (3.5-5.1) mmol/L POC Chloride (101-112) mmol/L Chloride (98-107) mmol/L Carbon Dioxide (21-32) mmol/L POC Total CO2 (24-31) mmol/L Anion Gap (3-11) POC Anion Gap (16-25) mmol/L POC BUN (7-18) mg/dl BUN (6-23) mg/dl Creatinine (0.6-1.2) mg/dl POC Creatinine (0.6-1.3) mg/dl Est Cr Clr Drug Dosing ml/min eGFR BUN/Creatinine Ratio (10-20) Glucose (70-99(Fasting)) mg/dl POC Glucose (70-99) mg/dl POC Glucose (other) (70-99) mg/dl Calcium (8.6-10.3) mg/dl POC Ioniz Calcium Sophie (1.12-1.32) mmol/l Total Bilirubin (0.2-1.0) mg/dl AST (13-39) U/L ALT (7-52) U/L Alkaline Phosphatase (34-104) U/L Total Creatine Kinase (26-192) U/L Troponin I High Sens 69.3 H* (0-14) pg/ml Total Protein (6.0-8.3) gm/dl Albumin (3.4-5.0) gm/dl Globulin (2.5-4.0) gm/dl Albumin/Globulin Ratio (0.9-2) Lipase (11-82) U/L Administered Medications Discontinued Medications Acetaminophen (Ofirmev) 1,000 mg in 100 mls @ 400 mls/hr IV NOW STA Stop: 09/06/25 13:52 Last Infusion: 09/06/25 14:25 Dose: Infused Documented By: [email or web address] Admin: 09/06/25 13:42 Dose: 400 mls/hr Documented By: gamaliel Imaging Data Radiologist's Impression: Cervical Spine CT 09/06/25 11:40 CT SCAN OF THE CERVICAL SPINE CLINICAL HISTORY: Trauma. COMPARISON STUDY: Cervical spine CT dated 11/20/2022. TECHNIQUE: CT scan of the cervical spine is performed from the skull base to the upper thoracic spine. Images are reviewed in the axial, sagittal, and coronal planes. IV contrast was not administered for this examination. A dose lowering technique was utilized adhering to the principles of ALARA. CT DOSE: 4135.39 mGy.cm FINDINGS: Skeletal structures: The skeletal structures are osteopenic. There is a fracture through the anterior ring of C1 is seen bilaterally on axial image #196. This age-indeterminate but new from 11/28/2022. There is no edema in the adjacent soft tissues. No additional findings are suspicious for acute fracture. There is no subluxation. Vertebral body height and alignment are maintained. Chronic posttraumatic deformity is noted in the odontoid process. The lateral masses appear intact. The atlantoaxial articulation is preserved noting advanced productive degenerative change. The spinous processes appear intact. There is advanced multilevel cervical spondylosis. Uncovertebral and facet arthropathy contribute to neural foraminal narrowing at most levels. Intervertebral discs: There is moderate disc space narrowing at C6-C7. Mild disc space narrowing is seen at the remaining cervical levels. Central canal: A posterior disc osteophyte complex at C6-C7 may contribute to acquired compromising the central canal. Soft tissues: The prevertebral and paraspinous soft tissues are within normal limits. There is atherosclerotic calcification of the carotid bulbs. Calvarium: The visualized calvarium at the skull base appears intact. Brain parenchyma: Partially visualized brain parenchyma at the skull base is within normal limits. Sinuses and mastoids: There is trace mucosal thickening within left maxillary antrum and the sphenoid sinuses. There is trace right mastoid effusion. The left mastoid air cells are well pneumatized. Cerumen is noted in the right external auditory canal. Lung apices: Clear as visualized. IMPRESSION: 1. There are fractures through the anterior ring of C1 which are age indeterminate but new from 11/28/2022. Subacute or chronic fracture is favored. Clinical correlation will be essential. 2. No additional findings are suspicious for acute fracture. There is no subluxation. 3. Osteopenia with chronic and advanced spondylotic change as above. ACT 112: Negative or not required by law. Electronically signed by: Delta Crespo M.D. 09/06/2025 1:15 PM Chest X-Ray 09/06/25 11:40 XR chest 1V portable CLINICAL HISTORY: Trauma COMPARISON STUDY: 11/23/2024 FINDINGS: Stable cardiomegaly with mild pulmonary vascular congestion. There is mildly increased stranding opacity at the left midlung. No other consolidation or pleural effusion seen. No pneumothorax. Stable old fractures at the proximal humeri. IMPRESSION: Increased stranding at the left mid lung, atelectasis versus early pneumonia. No other adverse change seen. ACT 112: Negative or not required by law. Electronically signed by: Porfirio Wall M.D. 09/06/2025 12:[address] 09/06/25 11:[address] WITHOUT CONTRAST CLINICAL HISTORY: Trauma. COMPARISON STUDY: Facial bone CT April 03, 2020. Head CT November 28, 2022. TECHNIQUE: A maxillofacial CT was performed without IV contrast. Coronal and sagittal reformats were viewed. Automated exposure control was utilized for the study. A dose lowering technique was utilized adhering to the principles of ALARA. FINDINGS: Right facial contusion and forehead contusions are noted. The globes are intact. There is no retrobulbar hematoma. No acute facial bone fracture is identified. Alignment of the temporomandibular joints is anatomic. Numerous teeth are absent. There are several dental caries and periapical lucencies within several maxillary teeth. No skull base fracture is present. Pterygoid plates are intact. There is mild cortical thickening of the left maxillary and ethmoid sinuses. IMPRESSION: No acute facial fracture. Right facial and forehead contusions. ACT 112: Negative or not required by law. Electronically signed by: Aakash Jaramillo M.D. 09/06/2025 12:[address] 09/06/25 11:40 CT head/brain wo con CLINICAL HISTORY: 80 years-old Female with trauma. Acute head trauma TECHNIQUE: Multiple axial CT images of the head were obtained without contrast. A dose lowering technique was utilized adhering to the principles of ALARA. COMPARISON: 11/28/2022 FINDINGS: Motion degraded exam. No acute intracranial hemorrhage, midline shift, intracranial mass, hydrocephalus, territorial ischemia or abnormal extra-axial collection. Involutional changes with white matter hypodensities suggestive of chronic microvascular ischemic disease. Left parietal and right frontal encephalomalacia again noted which has progressed in the right frontal lobe from prior. Cerebellar atrophy. The calvarium is intact. Small anterior frontal scalp contusion. Mild mucosal thickening of the paranasal sinuses. Mastoid air cells are clear. IMPRESSION: No acute intracranial abnormality or calvarial fracture. ACT 112: Negative or not required by law. The above report was generated using voice recognition software. It may contain grammatical, syntax or spelling errors. Electronically signed by: Adan Angel M.D. 09/06/2025 12:54 PM Pelvis X-Ray 09/06/25 11:40 XR pelvis 1-2V routine CLINICAL HISTORY: Trauma COMPARISON: 11/23/2024 FINDINGS: Right hip prosthesis shows no hardware complication. Exam is limited by overlying skinfold and bowel artifact. No acute displaced fracture or dislocation seen at the pelvis or hips. Stable degenerative changes at the left hip. IMPRESSION: Limited exam with no acute fracture seen. ACT 112: Negative or not required by law. Electronically signed by: Porfirio Wall M.D. 09/06/2025 12:57 PM Abdomen/Pelvis CT 09/06/25 11:55 CT OF THE ABDOMEN AND PELVIS WITHOUT CONTRAST CLINICAL HISTORY: Trauma. COMPARISON STUDY: CT of the abdomen and pelvis January 02, 2025 and pelvis and right hip radiographs November 23, 2024. TECHNIQUE: Axial images of the abdomen and pelvis were obtained without IV contrast. Images were reviewed in the axial, sagittal, and coronal planes. Automated exposure control was utilized for the study. A dose lowering technique was utilized adhering to the principles of ALARA. FINDINGS: There is an acute nondisplaced fracture of the lateral right 10th rib. Multiple old bilateral lower rib fractures are present. There is a trace left pleural effusion. Moderate cardiomegaly is again noted. No hemoperitoneum or pneumoperitoneum is present. Evaluation of the solid abdominal viscera is suboptimal as unenhanced exam. However, no evidence for traumatic injury to the liver, spleen, adrenal glands, kidneys or pancreas. There is moderate bilateral renal cortical thinning. Several small nonobstructing bilateral renal calculi are present. There are no ureteral calculi. There is no hydronephrosis. There is a moderate to large amount of stool within the rectum and moderate amount of stool within the colon. Note is made of colonic diverticulosis without evidence for acute diverticulitis. Multiple old lumbar spine compression fractures are present. Severe degenerative changes within the lumbar spine are noted. Right hip arthroplasty is intact. Chronic deformity proximal right femur is noted. Old left pubic ring fractures are incidentally noted. No acute pelvic or hip fracture is identified. IMPRESSION: 1. No acute traumatic findings within the abdomen or pelvis on unenhanced exam. 2. Acute nondisplaced lateral right 10th rib fracture. 3. No acute fractures within the pelvis, hips or lumbar spine. Old lumbar spine and pelvic fractures. 4. Moderate to large amount of stool within the colon and rectum. ACT 112: Negative or not required by law. Electronically signed by: Aakash Jaramillo M.D. 09/06/2025 12:[address] 09/06/25 11:55 CT chest diagnostic wo con CLINICAL HISTORY: 80 years-old Female with trauma. Acute chest trauma TECHNIQUE: Multiaxial CT images of the chest were performed without contrast. A dose lowering technique was utilized adhering to the principles of ALARA. COMPARISON: CT abdomen and pelvis same day and 01/02/2023, without FINDINGS: No dominant thyroid nodule or pathologically enlarged lymph nodes. Moderate cardiomegaly with moderate coronary artery calcifications. No thoracic aortic aneurysm. Trace left pleural effusion. Left hemidiaphragmatic elevation with left basilar mucous plugging and bibasilar atelectasis, left greater than right with air trapping. There are no suspicious pulmonary nodules or masses identified. Central airways are patent. Small hiatal hernia. Cholecystectomy. CT abdomen and pelvis dictated separately. Unremarkable soft tissues. Severe osteoarthritis of the shoulders. Chronic appearing left sided rib fracture deformities. Subtle acute versus subacute fractures are noted involving the inferior T10 and superior T11 endplates with equivocal additional fractures involving the bridging osteophytes at this interspace. There is only minimal vertebral body height loss at T11. The lateral right 10th rib fracture is not imaged on this exam. IMPRESSION: 1. Subtle acute versus subacute fractures of the T10 and T11 vertebral bodies without retropulsion or significant vertebral body height loss. 2. No acute displaced rib fracture or pneumothorax. 3. Cardiomegaly without overt pulmonary edema. 4. Trace left pleural effusion with bibasilar atelectasis. ACT 112: Negative or not required by law. Electronically signed by: Adan Angel M.D. 09/06/2025 1:06 PM Discharge Plan Visit Data Chief Complaint: Trauma Stated Complaint: INJURY ALERT, FALL ED Provider: Kasia Mills Discharge Problem: Trauma, Fall, Acute kidney injury superimposed on chronic kidney disease, Elevated troponin, Cervical spine fracture, Fracture of thoracic spine, Contusion of face Patient Disposition: Admitted As Inpatient Condition: Fair Forms Stand Alone Forms: [facility] Prescriptions Prescriptions: No Action (DME) Shower Chair Misc See Rx Instructions .ROUTE .MEDSUPPLY Qty: 1 0RF Rx Instructions: As directed ascorbic acid (vitamin C) [Vitamin C] 1,000 mg Tablet 1,000 mg PO QAM acetaminophen [Tylenol 8 Hour] 650 mg Tablet Extended Release 650 mg PO Q8H MDD 3G PRN (Reason: FEVER/PAIN) Rx Instructions: USE FOR PAIN LEVEL 1-3 OR TEMP >101 aspirin 81 mg Tablet,Delayed Release (Dr/Ec) 81 mg PO QAM Qty: 30 0RF lidocaine 4 % adhesive patch,medicated 1 patch TOPICAL DAILY Rx Instructions: APPLY IN THE MORNING AND REMOVE AT NIGHT insulin glargine [Lantus U-100 Insulin] 100 unit/mL solution 8 unit SUBCUT DAILY paroxetine HCl 20 mg tablet 20 mg PO DAILY levothyroxine 125 mcg tablet 125 mcg PO DAILY risperidone 0.25 mg tablet 0.25 mg PO [facility] sennosides-docusate sodium [Senna-S] 8.6-50 mg Tablet 1 tab-cap PO DAILY lamotrigine 100 mg tablet 100 mg PO BID polyethylene glycol 3350 17 gram/dose powder 17 g PO DAILY PRN (Reason: Constipation) Refresh Tears PF 0.5-0.9 % Drops 1 drp ophthalmic (eye) BID tramadol 50 mg tablet 50 mg PO Q8 PRN (Reason: PAIN 4-10) cholecalciferol (vitamin D3) 125 mcg (5,000 unit) Tablet 125 mcg PO DAILY Referrals Referrals: Christy Valdivia [Primary Care Provider] -
--- NOTE | 2025-09-06 12:57 | XRay Report ---
XR chest 1V portable CLINICAL HISTORY: Trauma COMPARISON STUDY: 11/23/2024 FINDINGS: Stable cardiomegaly with mild pulmonary vascular congestion. There is mildly increased stra nding opacity at the left midlung. No other consolidation or pleural effusion seen. No pneumothorax. Stable old fractures at the proximal humeri. IMPRESSION: Increased stranding at the left mid lung, atelectasis versus early pneumonia. No other a dverse change seen. ACT 112: Negative or not required by law. Electronically signed by: Porfirio Wall M.D. 09/06/2025 12:55 PM
--- NOTE | 2025-09-06 12:57 | CT Scan Report ---
CT OF THE ABDOMEN AND PELVIS WITHOUT CONTRAST CLINICAL HISTORY: Trauma. COMPARISON STUDY: CT of the abdomen and pelvis January 02, 2025 and pelvis and right hip radiographs [facility] 2024. TECHNIQUE: Axial images of the abdomen and pelvis were obtained without IV contrast. Images were revi ewed in the axial, sagittal, and coronal planes. Automated exposure control was utilized for the izabela dy. A dose lowering technique was utilized adhering to the principles of ALARA. FINDINGS: There is an acute nondisplaced fracture of the lateral right 10th rib. Multiple old bilater al lower rib fractures are present. There is a trace left pleural effusion. Moderate cardiomegaly is again noted. No hemoperitoneum or pneumoperitoneum is present. Evaluation of the solid abdominal visc era is suboptimal as unenhanced exam. However, no evidence for traumatic injury to the liver, spleen, adrenal glands, kidneys or pancreas. There is moderate bilateral renal cortical thinning. Several sm all nonobstructing bilateral renal calculi are present. There are no ureteral calculi. There is no hy dronephrosis. There is a moderate to large amount of stool within the rectum and moderate amount of s tool within the colon. Note is made of colonic diverticulosis without evidence for acute diverticulit is. Multiple old lumbar spine compression fractures are present. Severe degenerative changes within t he lumbar spine are noted. Right hip arthroplasty is intact. Chronic deformity proximal right femur i s noted. Old left pubic ring fractures are incidentally noted. No acute pelvic or hip fracture is colin ntified. IMPRESSION: 1. No acute traumatic findings within the abdomen or pelvis on unenhanced exam. 2. Acute nondisplaced lateral right 10th rib fracture. 3. No acute fractures within the pelvis, hips or lumbar spine. Old lumbar spine and pelvic fractures. 4. Moderate to large amount of stool within the colon and rectum. ACT 112: Negative or not required by law. Electronically signed by: Aakash Jaramillo M.D. 09/06/2025 12:56 PM
--- NOTE | 2025-09-06 13:08 | CT Scan Report ---
CT chest diagnostic wo con CLINICAL HISTORY: 80 years-old Female with trauma. Acute chest trauma TECHNIQUE: Multiaxial CT images of the chest were performed without contrast. A dose lowering techni que was utilized adhering to the principles of ALARA. COMPARISON: CT abdomen and pelvis same day and 01/02/2023, without FINDINGS: No dominant thyroid nodule or pathologically enlarged lymph nodes. Moderate cardiomegaly wi th moderate coronary artery calcifications. No thoracic aortic aneurysm. Trace left pleural effusion. Left hemidiaphragmatic elevation with left basilar mucous plugging and b ibasilar atelectasis, left greater than right with air trapping. There are no suspicious pulmonary no dules or masses identified. Central airways are patent. Small hiatal hernia. Cholecystectomy. CT abdo men and pelvis dictated separately. Unremarkable soft tissues. Severe osteoarthritis of the shoulders . Chronic appearing left sided rib fracture deformities. Subtle acute versus subacute fractures are n oted involving the inferior T10 and superior T11 endplates with equivocal additional fractures involv ing the bridging osteophytes at this interspace. There is only minimal vertebral body height loss at T11. The lateral right 10th rib fracture is not imaged on this exam. IMPRESSION: 1. Subtle acute versus subacute fractures of the T10 and T11 vertebral bodies without retropulsion or significant vertebral body height loss. 2. No acute displaced rib fracture or pneumothorax. 3. Cardiomegaly without overt pulmonary edema. 4. Trace left pleural effusion with bibasilar atelectasis. ACT 112: Negative or not required by law. Electronically signed by: Adan Angel M.D. 09/06/2025 1:06 PM
--- NOTE | 2025-09-06 13:17 | CT Scan Report ---
CT SCAN OF THE CERVICAL SPINE CLINICAL HISTORY: Trauma. COMPARISON STUDY: Cervical spine CT dated 11/20/2022. TECHNIQUE: CT scan of the cervical spine is performed from the skull base to the upper thoracic spine . Images are reviewed in the axial, sagittal, and coronal planes. IV contrast was not administered fo r this examination. A dose lowering technique was utilized adhering to the principles of ALARA. CT DOSE: 4135.39 mGy.cm FINDINGS: Skeletal structures: The skeletal structures are osteopenic. There is a fracture through the anterior ring of C1 is seen bilaterally on axial image #196. This age-indeterminate but new from 11/28/2022. T here is no edema in the adjacent soft tissues. No additional findings are suspicious for acute fractu re. There is no subluxation. Vertebral body height and alignment are maintained. Chronic posttraumati c deformity is noted in the odontoid process. The lateral masses appear intact. The atlantoaxial rich culation is preserved noting advanced productive degenerative change. The spinous processes appear in tact. There is advanced multilevel cervical spondylosis. Uncovertebral and facet arthropathy contribu te to neural foraminal narrowing at most levels. Intervertebral discs: There is moderate disc space narrowing at C6-C7. Mild disc space narrowing is s een at the remaining cervical levels. Central canal: A posterior disc osteophyte complex at C6-C7 may contribute to acquired compromising t he central canal. Soft tissues: The prevertebral and paraspinous soft tissues are within normal limits. There is athero sclerotic calcification of the carotid bulbs. Calvarium: The visualized calvarium at the skull base appears intact. Brain parenchyma: Partially visualized brain parenchyma at the skull base is within normal limits. Sinuses and mastoids: There is trace mucosal thickening within left maxillary antrum and the sphenoid sinuses. There is trace right mastoid effusion. The left mastoid air cells are well pneumatized. Cer umen is noted in the right external auditory canal. Lung apices: Clear as visualized. IMPRESSION: 1. There are fractures through the anterior ring of C1 which are age indeterminate but new from 2022. Subacute or chronic fracture is favored. Clinical correlation will be essential. 2. No additional findings are suspicious for acute fracture. There is no subluxation. 3. Osteopenia with chronic and advanced spondylotic change as above. ACT 112: Negative or not required by law. Electronically signed by: Delta Crespo M.D. 09/06/2025 1:15 PM
[2025-09-06] MEDS: ACETAMINOPHEN 1,000 MG/100 ML VIAL IV STA (13:42)
--- NOTE | 2025-09-06 14:17 | Orthopedic Consultation ---
Date of Service September 06, 2025 Assessment & Plan (1) Compression fracture of thoracic vertebra: (2) Closed C1 fracture: Plan * Case/imaging reviewed and discussed with Dr Dupont * Very limited exam given patient is unable to participate * Provided history and imaging consistent with acute/subacute T10-11 compression fractures, and chronic C1 fracture * Recommend continued c-collar until able to perform better physical exam ideally when patient is more interactive * Recommend closed management of T10-11 compression fracture * TLSO brace ordered * Weight bearing status: WBAT, recommend brace when out of bed. * Daily treatment: Physical Therapy/ Occupational Therapy per protocol * Pain control * Disposition: TBD * Remainder care per primary team * Will continue to follow in order to obtain better physical exam * * Patient seen and examined, not noting significant symptomatology either in the cervical or lumbar spine, will consider whether or not to move ahead with TLSO brace as doubtful this is a new fracture. History of Present Illness Reason for Consultation: C1 fracture Requesting Physician: . . Patient is a 80 y/o female with imaging demonstrating C1 fracture. PMH including dementia, CKD-4, seizure disorder, PAD, DM-2. Presents to hospital as a trauma alert, per report patient had a fall out of bed at her assisted living facility landing on her left side. Chief complaints of left-sided facial pain and left side/thoracic pain. Trauma scans complete including CT c-spine revealing age indeterminant C1 fracture, CT chest demonstrates acute/subacute T1-11 compression fractures. Admitted to hospital medicine team. Orthopedics consulted for management recommendations. At time of exam patient lying in bed, C-collar intact. Sound asleep, arouses briefly to voice but is unable to provide any meaningful history or characterize her symptoms. Allergies Allergy/AdvReac Type Severity Reaction Status Date / Time omeprazole Allergy Severe throat Verified 11/28/22 02:26 swelling alendronate sodium Allergy Unknown GI SYMPTOMS Verified 11/28/22 02:26 oxytocin Allergy Unknown Nausea and Verified 11/28/22 02:26 vomiting pioglitazone Allergy Unknown Edema BLE Verified 11/28/22 02:26 prednisone Allergy Unknown Nausea and Verified 11/28/22 02:26 vomiting risedronate sodium Allergy Unknown Headache Verified 11/28/22 02:26 and weakness sitagliptin Allergy Unknown Itching Verified 11/28/22 02:26 valproic acid Allergy Unknown Affected Verified 11/28/22 02:26 her memory divalproex sodium Allergy Unknown Verified 11/28/22 02:26 [From Depakote] fluoxetine [From Prozac] Allergy Unknown Verified 11/28/22 02:26 codeine AdvReac Unknown NAUSEA/VOMI Verified 11/28/22 02:26 TING morphine AdvReac Unknown nausea/vomi Verified 11/28/22 02:26 ting oxycodone AdvReac Unknown nausea/vomi Verified 11/28/22 02:26 ting Home Medications Medication Instructions Recorded Confirmed Type acetaminophen 650 mg 650 mg PO Q8H PRN FEVER/PAIN 05/19/22 09/07/25 History tablet,extended release (Tylenol 8 Hour) aspirin 81 mg tablet,delayed 81 mg PO QAM #30 tabs 06/08/22 09/07/25 Rx release carboxymethylcellulose 0.5 1 drp ophthalmic (eye) BID 11/23/24 09/07/25 History %-glycerin 0.9 % (PF) eye drops (Refresh Tears PF) insulin glargine 100 unit/mL 6 unit subcut DAILY 11/23/24 09/07/25 History subcutaneous solution (Lantus U-100 Insulin) lamotrigine 100 mg tablet 100 mg PO BID 11/23/24 09/07/25 History levothyroxine 125 mcg tablet 125 mcg PO DAILY 11/23/24 09/07/25 History lidocaine 4 % topical patch 1 patch topical DAILY 11/23/24 09/07/25 History sennosides 8.6 mg-docusate sodium 1 tab-cap PO DAILY 11/23/24 09/07/25 History 50 mg tablet (Senna-S) tramadol 50 mg tablet 50 mg PO Q8 PRN PAIN 4-10 11/23/24 09/07/25 History Lactobacillus acidophilus 1 1,000 mmu cells PO DAILY 09/07/25 09/07/25 History billion cell capsule mirtazapine 15 mg tablet 15 mg PO HS 09/07/25 09/07/25 History multivitamin with minerals 1 tab PO DAILY 09/07/25 09/07/25 History prednisone 20 mg tablet 20 mg PO DAILY 09/07/25 09/07/25 History risperidone 0.5 mg tablet 0.5 mg PO BID 09/07/25 09/07/25 History sodium chloride 1,000 mg soluble 1,000 mg PO BID 09/07/25 09/07/25 History tablet triamcinolone acetonide 0.1 % See Rx Instructions .Route .COMPLEX 09/07/25 09/07/25 History topical cream Past Med/Surg History Problem List (Updated 09/07/25 @ 18:52 by Hoa Moore MD) Acute metabolic encephalopathy Altered mental status Contusion of face (Acute) Fracture of thoracic spine (Acute) Cervical spine fracture (Acute) Elevated troponin (Acute) Acute kidney injury superimposed on chronic kidney disease (Acute) Fall (Acute) Trauma (Acute) Closed C1 fracture Compression fracture of thoracic vertebra Anemia Right femoral shaft fracture (Acute) L1 vertebral fracture CKD (chronic kidney disease) stage 4, GFR 15-29 ml/min Weakness (Acute) Diarrhea (Acute) Diarrhea Closed fracture of pedicle of lumbar vertebra (Acute) Hyperglycemia (Acute) Lumbar disc disease with radiculopathy (Acute) UTI (urinary tract infection), uncomplicated Spinal stenosis, lumbar L3 vertebral fracture Seizure disorder Ankylosing spondylitis (Acute) Asymptomatic hyperuricemia (Acute) Chronic lower back pain (Acute) Chronic reflux esophagitis (Acute) Elevated blood pressure reading in office without diagnosis of hypertension (Acute) Osteoarthritis of shoulder (Acute) Osteoporosis, senile (Acute) PAD (peripheral artery disease) (Acute) Stasis dermatitis (Acute) Hyperglycemia Bilateral edema of lower extremity (Acute) Hypotension (Acute) Epilepsy (Chronic) Hypothyroidism (Chronic) DM type 2 (diabetes mellitus, type 2) (Chronic) Carotid stenosis (Chronic) Cerebrovascular disease, arteriosclerotic, post-stroke (Chronic) Vertebral fracture, osteoporotic (Chronic) Migraine (Chronic) GERD (gastroesophageal reflux disease) (Chronic) CKD (chronic kidney disease), stage III (Chronic) Dyslipidemia (Chronic) Osteoarthritis (Chronic) Venous stasis ulcer of right lower extremity (Acute) Medical History Hyperglycemia Abdominal pain Hyperglycemia 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 Rhabdomyolysis Rhabdomyolysis Cellulitis Screening for skin condition Surgical History S/P rotator cuff repair S/P cholecystectomy History of bilateral knee replacement History of left-sided carotid endarterectomy H/O total knee replacement Family History Mother Transitional cell carcinoma of bladder Diabetes Cardiac disorder Hypertension Ovarian cancer Grandmother Cancer Uncle Cancer Father Cardiac disorder Hypertension Asthma Social History Smoking Status: Never smoker Tobacco Type: Declines Second Hand Exposure: No; Do You Dip or Chew Tobacco: No; Hx Alcohol Use: No Hx Substance Use: No Preferred Language: Yoruba Communication Ability: Effective 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 Physical Exam . * General: Demented. Unable to provide further history. C-collar in place, facial lacerations. * Constitutional: well-developed, well-nourished. * Respiratory: Normal respiratory effort, no distress * Skin: No rash or lesion. * Neurologic: Grossly normal * Musculoskeletal: C-collar intact, not removed for exam. Unable to assess C- spine tenderness, range of motion, or neurological function given lack of participation with exam. Occasional spontaneous movements of bilateral upper extremities including shoulder, elbow, wrist/hand. Apparent tenderness of the lower thoracic region consistent with imaging findings of T10/11 compression fractures Results & Data Results & Data Laboratory Results . Diagnostic Findings . Cervical Spine CT 09/06/25 11:40 CT SCAN OF THE CERVICAL SPINE CLINICAL HISTORY: Trauma. COMPARISON STUDY: Cervical spine CT dated 11/20/2022. TECHNIQUE: CT scan of the cervical spine is performed from the skull base to the upper thoracic spine. Images are reviewed in the axial, sagittal, and coronal planes. IV contrast was not administered for this examination. A dose lowering technique was utilized adhering to the principles of ALARA. CT DOSE: 4135.39 mGy.cm FINDINGS: Skeletal structures: The skeletal structures are osteopenic. There is a fracture through the anterior ring of C1 is seen bilaterally on axial image #196. This age-indeterminate but new from 11/28/2022. There is no edema in the adjacent soft tissues. No additional findings are suspicious for acute fracture. There is no subluxation. Vertebral body height and alignment are maintained. Chronic posttraumatic deformity is noted in the odontoid process. The lateral masses appear intact. The atlantoaxial articulation is preserved noting advanced productive degenerative change. The spinous processes appear intact. There is advanced multilevel cervical spondylosis. Uncovertebral and facet arthropathy contribute to neural foraminal narrowing at most levels. Intervertebral discs: There is moderate disc space narrowing at C6-C7. Mild disc space narrowing is seen at the remaining cervical levels. Central canal: A posterior disc osteophyte complex at C6-C7 may contribute to acquired compromising the central canal. Soft tissues: The prevertebral and paraspinous soft tissues are within normal limits. There is atherosclerotic calcification of the carotid bulbs. Calvarium: The visualized calvarium at the skull base appears intact. Brain parenchyma: Partially visualized brain parenchyma at the skull base is within normal limits. Sinuses and mastoids: There is trace mucosal thickening within left maxillary antrum and the sphenoid sinuses. There is trace right mastoid effusion. The left mastoid air cells are well pneumatized. Cerumen is noted in the right external auditory canal. Lung apices: Clear as visualized. IMPRESSION: 1. There are fractures through the anterior ring of C1 which are age ind eterminate but new from 11/28/2022. Subacute or chronic fracture is favored. Clinical correlation will be essential. 2. No additional findings are suspicious for acute fracture. There is no subluxation. 3. Osteopenia with chronic and advanced spondylotic change as above. ACT 112: Negative or not required by law. Electronically signed by: Delta Crespo M.D. 09/06/2025 1:15 PM Chest X-Ray 09/06/25 11:40 XR chest 1V portable CLINICAL HISTORY: Trauma COMPARISON STUDY: 11/23/2024 FINDINGS: Stable cardiomegaly with mild pulmonary vascular congestion. There is mildly increased stranding opacity at the left midlung. No other consolidation or pleural effusion seen. No pneumothorax. Stable old fractures at the proximal humeri. IMPRESSION: Increased stranding at the left mid lung, atelectasis versus early pneumonia. No other adverse change seen. ACT 112: Negative or not required by law. Electronically signed by: Porfirio Wall M.D. 09/06/2025 12:[address] 09/06/25 11:[address] WITHOUT CONTRAST CLINICAL HISTORY: Trauma. COMPARISON STUDY: Facial bone CT April 03, 2020. Head CT November 28, 2022. TECHNIQUE: A maxillofacial CT was performed without IV contrast. Coronal and sagittal reformats were viewed. Automated exposure control was utilized for the study. A dose lowering technique was utilized adhering to the principles of ALARA. FINDINGS: Right facial contusion and forehead contusions are noted. The globes are intact. There is no retrobulbar hematoma. No acute facial bone fracture is identified. Alignment of the temporomandibular joints is anatomic. Numerous teeth are absent. There are several dental caries and periapical lucencies within several maxillary teeth. No skull base fracture is present. Pterygoid plates are intact. There is mild cortical thickening of the left maxillary and ethmoid sinuses. IMPRESSION: No acute facial fracture. Right facial and forehead contusions. ACT 112: Negative or not required by law. Electronically signed by: Aakash Jaramillo M.D. 09/06/2025 12:[address] 09/06/25 11:40 CT head/brain wo con CLINICAL HISTORY: 80 years-old Female with trauma. Acute head trauma TECHNIQUE: Multiple axial CT images of the head were obtained without contrast. A dose lowering technique was utilized adhering to the principles of ALARA. COMPARISON: 11/28/2022 FINDINGS: Motion degraded exam. No acute intracranial hemorrhage, midline shift, intracranial mass, hydrocephalus, territorial ischemia or abnormal extra-axial collection. Involutional changes with white matter hypodensities suggestive of chronic microvascular ischemic disease. Left parietal and right frontal encepha lomalacia again noted which has progressed in the right frontal lobe from prior. Cerebellar atrophy. The calvarium is intact. Small anterior frontal scalp contusion. Mild mucosal thickening of the paranasal sinuses. Mastoid air cells are clear. IMPRESSION: No acute intracranial abnormality or calvarial fracture. ACT 112: Negative or not required by law. The above report was generated using voice recognition software. It may contain grammatical, syntax or spelling errors. Electronically signed by: Adan Angel M.D. 09/06/2025 12:54 PM Pelvis X-Ray 09/06/25 11:40 XR pelvis 1-2V routine CLINICAL HISTORY: Trauma COMPARISON: 11/23/2024 FINDINGS: Right hip prosthesis shows no hardware complication. Exam is limited by overlying skinfold and bowel artifact. No acute displaced fracture or dislocation seen at the pelvis or hips. Stable degenerative changes at the left hip. IMPRESSION: Limited exam with no acute fracture seen. ACT 112: Negative or not required by law. Electronically signed by: Porfirio Wall M.D. 09/06/2025 12:57 PM Abdomen/Pelvis CT 09/06/25 11:55 CT OF THE ABDOMEN AND PELVIS WITHOUT CONTRAST CLINICAL HISTORY: Trauma. COMPARISON STUDY: CT of the abdomen and pelvis January 02, 2025 and pelvis and right hip radiographs November 23, 2024. TECHNIQUE: Axial images of the abdomen and pelvis were obtained without IV contrast. Images were reviewed in the axial, sagittal, and coronal planes. Automated exposure control was utilized for the study. A dose lowering techni que was utilized adhering to the principles of ALARA. FINDINGS: There is an acute nondisplaced fracture of the lateral right 10th rib. Multiple old bilateral lower rib fractures are present. There is a trace left pleural effusion. Moderate cardiomegaly is again noted. No hemoperitoneum or pneumoperitoneum is present. Evaluation of the solid abdominal viscera is suboptimal as unenhanced exam. However, no evidence for traumatic injury to the liver, spleen, adrenal glands, kidneys or pancreas. There is moderate bilateral renal cortical thinning. Several small nonobstructing bilateral renal calculi are present. There are no ureteral calculi. There is no hydronephrosis. There is a moderate to large amount of stool within the rectum and moderate amount of stool within the colon. Note is made of colonic diverticulosis without evidence for acute diverticulitis. Multiple old lumbar spine compression fractures are present. Severe degenerative changes within the lumbar spine are noted. Right hip arthroplasty is intact. Chronic deformity proximal right femur is noted. Old left pubic ring fractures are incidentally noted. No acute pelvic or hip fracture is identified. IMPRESSION: 1. No acute traumatic findings within the abdomen or pelvis on unenhanced exam. 2. Acute nondisplaced lateral right 10th rib fracture. 3. No acute fractures within the pelvis, hips or lumbar spine. Old lumbar spine and pelvic fractures. 4. Moderate to large amount of stool within the colon and rectum. ACT 112: Negative or not required by law. Electronically signed by: Aakash Jaramillo M.D. 09/06/2025 12:[address] 09/06/25 11:55 CT chest diagnostic wo con CLINICAL HISTORY: 80 years-old Female with trauma. Acute chest trauma TECHNIQUE: Multiaxial CT images of the chest were performed without contrast. A dose lowering technique was utilized adhering to the principles of ALARA. COMPARISON: CT abdomen and pelvis same day and 01/02/2023, without FINDINGS: No dominant thyroid nodule or pathologically enlarged lymph nodes. Moderate cardiomegaly with moderate coronary artery calcifications. No thoracic aortic aneurysm. Trace left pleural effusion. Left hemidiaphragmatic elevation with left basilar mucous plugging and bibasilar atelectasis, left greater than right with air trapping. There are no suspicious pulmonary nodules or masses identified. Central airways are patent. Small hiatal hernia. Cholecystectomy. CT abdomen and pelvis dictated separately. Unremarkable soft tissues. Severe osteoarthritis of the shoulders. Chronic appearing left sided rib fracture deformities. Subtle acute versus subacute fractures are noted involving the inferior T10 and superior T11 endplates with equivocal additional fractures involving the bridging osteophytes at this interspace. There is only minimal vertebral body height loss at T11. The lateral right 10th rib fracture is not imaged on this exam. IMPRESSION: 1. Subtle acute versus subacute fractures of the T10 and T11 vertebral bodies without retropulsion or significant vertebral body height loss. 2. No acute displaced rib fracture or pneumothorax. 3. Cardiomegaly without overt pulmonary edema. 4. Trace left pleural effusion with bibasilar atelectasis. ACT 112: Negative or not required by law. Electronically signed by: Adan Angel M.D. 09/06/2025 1:06 PM PG Care Time/CCT Total # of Minutes Spent Total Time Spent with Patient: Total time spent is greater than 50% in coordination of care (as documented) at patient's floor/unit and/or counseling patient: Coding [place] [address] IN/OBS CONSULT LVL 4,60M Patient Type Established Medical Decision Making Moderate Complexity Diagnoses Compression fracture of thoracic vertebra S22.000A Closed C1 fracture S12.000A
--- NOTE | 2025-09-06 15:00 | History & Physical Report ---
"Date of Service September 06, 2025 Assessment & Plan (1) Cervical spine fracture: (2) Fracture of thoracic spine: (3) Altered mental status: (4) Acute kidney injury superimposed on chronic kidney disease: Plan Radha is a 80F resident of [facility] with a PMHx of DMT2, hypothyroid, CKD, seizure disorder, osteoporosis, PAD and HLD who presents after a fall. Patient was a TRAUMA ALERT in the ED. Initial evaluation concerning for cervical spine fracture thoracic spine fracture and rib fractures as well as hyponatremia and JEFFERSON. Admitted for IV fluids, ortho consultation and further workup. #Fall | Cervical Spine fracture | Thoracic spine fracture | Rib Fracture - fall out of bed, not on thinners. Trauma Alert. Imaging reveals age indeterminate C1 fracture, T10 & T11 acute vs subacute fractures and Right 10th rib fracture. CK negative. Orthopedics consulted - suspect C1 fracture is chronic, but maintain c-collar until patient is more alert. TLSO brace ordered for t-spine fractures. incentive spirometer for rib fracture Pain control: prn tylenol, lidocaine patch DVT proh with Heparin given trauma alert PT/OT - daughter reports mainly wheelchair user at baseline, but transfers with assistance, sometimes needs assistance with feeds AM CBC, BMP and Vit D #Altered mental status | concerns for infection - with leukocytosis, elevated procal 1.71 and CRP 8.69 on admission. is able to answer orientation questions on exam, no major neurodeficitsCVA remains much lower on the differential. source of infection unclear no evidence of infection on CT A/P or CT chest. UA with leuk's and WBC however no bacteria or nitrites Start empiric antibiotics with ceftriaxone and vancomycin Daughter reports recently completed antibiotics for left elbow infection, unsure what antibiotic Blood cultures pending Ammonia level pending VBG pending Urine tox pending BioFire pending trend CRP #Hyponatremia - acute on chronic, with baseline 130-135. Likely low due to acute kidney injury or some dehydration Na 126 on admission, with glucose 209. Na corrects to 129 Check urine Osm and Urine Na 500 NSS bolus, then 500 cc at 100cc/hr and then maintenance fluids overnight AM BMP #JEFFERSON on CKD3 - baseline Cr ~2.7 Creatinine 3.29 on admission, already slightly improved on recheck, likely prerenal from dehydration IVFs as above #constipation - Moderate stool burden on CT suppository was refused, will add a prn dose Will trial PO bisacodyl and senna if alert enough to take PO will need miralax added when mentation improves, otherwise consider enema #DMT2 home meds unclear as med rec has not been completedpossibly just Lantus 8 units daily Will continue Lantus 5 units every morning with sliding scale insulin CF 20 no CR #Elevated troponin Downtrending, no chest pain. No EKG changes suspect due to poor renal clearance, dehydration and demand ischemia from fall #History of seizure disordercontinue Lamictal #Hypothyroidcontinue Synthroid AM TSH #Anemia-normocytic, Hgb low at 8 but stable from previous - Check iron studies, B12, folate, TSH in the morning At time dictation med reconciliation has not been completed. attempted to call facility for updated meds, no one available and packet not sent with patient. Daughter does not know what medications patient takes daily. Please call facility in the morning to update her meds the meds they continue her based on her prior stay. dispo: Admit to PCU, PT/OT consults placed, resides in [facility] DVT prophylaxis heparin subcu History of Present Illness Chief Complaint: fall Primary Care Provider: [facility] Radha is a 80F resident of [facility] with a PMHx of DMT2, hypothyroid, CKD, seizure disorder, osteoporosis, PAD and HLD who presents after a fall. Reportedly had a fall out of bed and landed on her left side. Called her nursing facility for collateral but no labs available to provide information. spoke to daughter, Darling, states that she was at the [facility] to visit Radha this morning after the fall and thought that she was acting abnormal. Does not know of any recent illness but does know that she was being treated for an elbow infection with antibiotics that was started last Wednesday. She is unaware of what antibiotic she was on. Was told that she rolled out of bed and was found by the housekeeping person. Daughter reports that Radha is usually needs assistance with transfers and is primarily wheelchair-bound. Radha also needs assistance with feeding. When I evaluated Radha in the ER around 1529 she would complain of pain when I was pressing on her abdomen but would not follow any more commands. I reevaluated her around 1829 when she was up on the floor and at this time she could answer my questions and follow commands. They mainly kept her eyes closed but could open them when I asked her to. She thinks she is in the hospital because of her toe. She knows that it is 2024. Allergies Allergy/AdvReac Type Severity Reaction Status Date / Time omeprazole Allergy Severe throat Verified 11/28/22 02:26 swelling alendronate sodium Allergy Unknown GI SYMPTOMS Verified 11/28/22 02:26 oxytocin Allergy Unknown Nausea and Verified 11/28/22 02:26 vomiting pioglitazone Allergy Unknown Edema BLE Verified 11/28/22 02:26 prednisone Allergy Unknown Nausea and Verified 11/28/22 02:26 vomiting risedronate sodium Allergy Unknown Headache Verified 11/28/22 02:26 and weakness sitagliptin Allergy Unknown Itching Verified 11/28/22 02:26 valproic acid Allergy Unknown Affected Verified 11/28/22 02:26 her memory divalproex sodium Allergy Unknown Verified 11/28/22 02:26 [From Depakote] fluoxetine [From Prozac] Allergy Unknown Verified 11/28/22 02:26 codeine AdvReac Unknown NAUSEA/VOMI Verified 11/28/22 02:26 TING morphine AdvReac Unknown nausea/vomi Verified 11/28/22 02:26 ting oxycodone AdvReac Unknown nausea/vomi Verified 11/28/22 02:26 ting Home Medications Medication Instructions Recorded Confirmed Type Shower Chair #1 ea 06/03/20 11/23/24 Rx acetaminophen 650 mg 650 mg PO Q8H PRN FEVER/PAIN 05/19/22 11/23/24 History tablet,extended release (Tylenol 8 Hour) ascorbic acid (vitamin C) 1,000 mg 1,000 mg PO QAM 05/19/22 11/23/24 History tablet (Vitamin C) aspirin 81 mg tablet,delayed 81 mg PO QAM #30 tabs 06/08/22 11/23/24 Rx release carboxymethylcellulose 0.5 1 drp ophthalmic (eye) BID 11/23/24 11/23/24 History %-glycerin 0.9 % (PF) eye drops (Refresh Tears PF) insulin glargine 100 unit/mL 8 unit subcut DAILY 11/23/24 11/23/24 History subcutaneous solution (Lantus U-100 Insulin) lamotrigine 100 mg tablet 100 mg PO BID 11/23/24 11/23/24 History levothyroxine 125 mcg tablet 125 mcg PO DAILY 11/23/24 11/23/24 History lidocaine 4 % topical patch 1 patch topical DAILY 11/23/24 11/23/24 History paroxetine HCl 20 mg tablet 20 mg PO DAILY 11/23/24 11/23/24 History polyethylene glycol 3350 17 17 g PO DAILY PRN Constipation 11/23/24 11/23/24 History gram/dose oral powder risperidone 0.25 mg tablet 0.25 mg PO AMHS 11/23/24 11/23/24 History sennosides 8.6 mg-docusate sodium 1 tab-cap PO DAILY 11/23/24 11/23/24 History 50 mg tablet (Senna-S) tramadol 50 mg tablet 50 mg PO Q8 PRN PAIN 4-10 11/23/24 11/23/24 History cholecalciferol (vitamin D3) 125 125 mcg PO DAILY 11/30/24 11/30/24 History mcg (5,000 unit) tablet Past Med/Surg History Problem List (Updated 09/06/25 @ 19:38 by Sejal Wagner PA-C) Altered mental status Contusion of face (Acute) Fracture of thoracic spine (Acute) Cervical spine fracture (Acute) Elevated troponin (Acute) Acute kidney injury superimposed on chronic kidney disease (Acute) Fall (Acute) Trauma (Acute) Closed C1 fracture Compression fracture of thoracic vertebra Anemia Right femoral shaft fracture (Acute) L1 vertebral fracture CKD (chronic kidney disease) stage 4, GFR 15-29 ml/min Weakness (Acute) Diarrhea (Acute) Diarrhea Closed fracture of pedicle of lumbar vertebra (Acute) Hyperglycemia (Acute) Lumbar disc disease with radiculopathy (Acute) UTI (urinary tract infection), uncomplicated Spinal stenosis, lumbar L3 vertebral fracture Seizure disorder Ankylosing spondylitis (Acute) Asymptomatic hyperuricemia (Acute) Chronic lower back pain (Acute) Chronic reflux esophagitis (Acute) Elevated blood pressure reading in office without diagnosis of hypertension (Acute) Osteoarthritis of shoulder (Acute) Osteoporosis, senile (Acute) PAD (peripheral artery disease) (Acute) Stasis dermatitis (Acute) Hyperglycemia Bilateral edema of lower extremity (Acute) Hypotension (Acute) Epilepsy (Chronic) Hypothyroidism (Chronic) DM type 2 (diabetes mellitus, type 2) (Chronic) Carotid stenosis (Chronic) Cerebrovascular disease, arteriosclerotic, post-stroke (Chronic) Vertebral fracture, osteoporotic (Chronic) Migraine (Chronic) GERD (gastroesophageal reflux disease) (Chronic) CKD (chronic kidney disease), stage III (Chronic) Dyslipidemia (Chronic) Osteoarthritis (Chronic) Venous stasis ulcer of right lower extremity (Acute) Medical History Hyperglycemia Abdominal pain Hyperglycemia 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 Rhabdomyolysis Rhabdomyolysis Cellulitis Screening for skin condition Surgical History S/P rotator cuff repair S/P cholecystectomy History of bilateral knee replacement History of left-sided carotid endarterectomy H/O total knee replacement Family History Mother Transitional cell carcinoma of bladder Diabetes Cardiac disorder Hypertension Ovarian cancer Grandmother Cancer Uncle Cancer Father Cardiac disorder Hypertension Asthma Social History Smoking Status: Never smoker Tobacco Type: Declines Second Hand Exposure: No; Do You Dip or Chew Tobacco: No; Hx Alcohol Use: No Hx Substance Use: No Preferred Language: Martiniquais Communication Ability: Effective Budget Clerk Required: No Beliefs That Will Affect Care: None marital status: / Current Living Situation: [facility] Current Living Situation Comment: [employer] tues[facility] How many Children do You have: 2 Other Information That Helps Us Care for You: No Feels Safe at Home: Yes Safety Concerns: Feels Safe At This Time Assistive Devices: None Review of Systems Review of Systems: Unobtainable due to cognitive status Physical Exam Constitutional: WD/WN, vitals as above Eyes: PERRL, conjunctivae normal, anicteric sclerae ENMT: Laceration superior frontal region not actively bleeding Neck: In C-spine collar not removed Respiratory: normal respiratory effort, lungs clear to auscultation Cardiovascular: RRR, no murmur, no edema Gastrointestinal (Abdomen): normal bowel sounds, soft, nontender, no hepatosplenomegaly Musculoskeletal: Extremities: + limited ROM of extremities (Rigid and contracted in all 4 extremities) Psychiatric: Orientation: + not alert (Drowsy but responds to questions, follows commands) Results & Data Results & Data Vital Signs (Past 12 Hours) Vital Signs Temp Pulse Pulse Resp BP BP Pulse Ox 11/06/25 14:30 123/56 L 09/06/25 14:30 123/56 L 09/06/25 14:30 123/56 L 09/06/25 14:30 123/56 L 09/06/25 14:30 123/56 L 09/06/25 14:30 72 11 L 99 09/06/25 14:22 73 18 123/56 L 99 09/06/25 14:21 70 13 99 09/06/25 14:15 75 14 99 09/06/25 14:15 102/48 L 09/06/25 14:15 102/48 L 09/06/25 14:15 102/48 L 09/06/25 14:15 102/48 L 09/06/25 14:15 102/48 L 09/06/25 14:12 68 13 99 09/06/25 14:00 127/61 09/06/25 14:00 127/61 09/06/25 14:00 127/61 09/06/25 14:00 127/61 09/06/25 14:00 127/61 09/06/25 14:00 71 13 97 09/06/25 13:51 68 13 95 09/06/25 13:45 111/54 L 09/06/25 13:45 111/54 L 09/06/25 13:45 111/54 L 09/06/25 13:45 111/54 L 09/06/25 13:45 111/54 L 09/06/25 13:45 69 09/06/25 13:42 69 20 96 09/06/25 13:30 68 14 94 09/06/25 13:30 106/58 L 09/06/25 13:30 106/58 L 09/06/25 13:30 106/58 L 09/06/25 13:30 106/58 L 09/06/25 13:30 106/58 L 09/06/25 13:29 70 18 106/58 L 94 09/06/25 13:22 09/06/25 13:22 70 18 121/60 93 09/06/25 13:22 97.9 F 70 18 121/60 93 09/06/25 13:21 70 14 95 09/06/25 13:15 121/60 09/06/25 13:15 121/60 09/06/25 13:15 121/60 09/06/25 13:15 121/60 09/06/25 13:15 121/60 09/06/25 13:15 72 13 94 09/06/25 13:12 72 13 98 09/06/25 13:00 76 15 93 09/06/25 13:00 136/64 09/06/25 13:00 136/64 09/06/25 13:00 136/64 09/06/25 13:00 136/64 09/06/25 13:00 136/64 09/06/25 12:51 73 13 90 09/06/25 12:45 72 12 92 09/06/25 11:43 97.9 F 73 18 108/56 L 96 09/06/25 11:42 77 09/06/25 11:40 71 18 95 09/06/25 11:29 76 18 108/56 L 96 O2 Del Method O2 Flow Rate 09/06/25 14:30 09/06/25 14:30 09/06/25 14:30 09/06/25 14:30 09/06/25 14:30 09/06/25 14:30 09/06/25 14:22 Room Air 09/06/25 14:21 09/06/25 14:15 09/06/25 14:15 09/06/25 14:15 09/06/25 14:15 09/06/25 14:15 09/06/25 14:15 09/06/25 14:12 09/06/25 14:00 09/06/25 14:00 09/06/25 14:00 09/06/25 14:00 09/06/25 14:00 09/06/25 14:00 09/06/25 13:51 09/06/25 13:45 09/06/25 13:45 09/06/25 13:45 09/06/25 13:45 09/06/25 13:45 09/06/25 13:45 09/06/25 13:42 09/06/25 13:30 09/06/25 13:30 09/06/25 13:30 09/06/25 13:30 09/06/25 13:30 09/06/25 13:30 09/06/25 13:29 Room Air 09/06/25 13:22 Room Air 09/06/25 13:22 Room Air 09/06/25 13:22 Room Air 0 09/06/25 13:21 09/06/25 13:15 09/06/25 13:15 09/06/25 13:15 09/06/25 13:15 09/06/25 13:15 09/06/25 13:15 09/06/25 13:12 09/06/25 13:00 09/06/25 13:00 09/06/25 13:00 09/06/25 13:00 09/06/25 13:00 09/06/25 13:00 09/06/25 12:51 09/06/25 12:45 09/06/25 11:43 Room Air 09/06/25 11:42 09/06/25 11:40 Room Air 09/06/25 11:29 Room Air Laboratory Results CBC, PT/PTT/INR, VBG, CMP, troponin, CRP, UA, respiratory BioFire reviewed Diagnostic Findings Joe CT scans reviewed Code Status & VTE Plan VTE Prophylaxis Plan VTE Prophylaxis will be ordered: Yes Supervising Physician Co-Signing Physician Notes PA Supervision Note: I personally saw and examined the patient. I verified all mesa points and agree with SANJUANITA Wagner with the following exceptions and/or additions: S-this patient is a 80-year-old female with history noted as above, who presente d after falling out of bed onto the floor and being found down with a laceration to her forehead. With rib fracture, likely old C1 fracture, hyponatremia and acute kidney injury with UTI and possible pneumonia. History and ROS otherwise reviewed as above O- Vitals reviewed Gen: Drowsy, does follow some commands and opens eyes, moves all extremities with rigidity and contractures HEENT: Anicteric sclerae, EOMI, PERRLA CV: RRR no mgr nl S1S2 Pulm: CTAB no wcr Abd: +BS soft NT ND no masses or hernias Ext: No edema Skin: No rashes, warm/dry A/A-49-vkxd-old female here with fall, JEFFERSON, rib fracture, old C1 fracture, UTI, possible pneumonia - Give IV fluids, follow BMP - With acidosis, check lactate but likely from acute kidney injury as there is no anion gap - Appreciate orthopedic surgery consultation-maintain c-collar until more awake and alert and able to tell if she has pain - If mentation worsens, would repeat head CT - Hyponatremia should improve with IV fluids - Give ceftriaxone and vancomycin to cover for pneumonia and in case of UTI - Follow cultures - Workup for anemia PG Care Time/CCT Total # of Minutes Spent Total Time Spent with Patient: Total time spent is greater than 50% in coordination of care (as documented) at patient's floor/unit and/or counseling patient: Coding Level of Care Code 27129 INT INP/OBS CARE 375MIN Diagnoses Cervical spine fracture S12.9XXA Fracture of thoracic spine S22.009A Altered mental status R41.82 Acute kidney injury superimposed on chronic kidney disease N17.9; N18.9"
[2025-09-06] MEDS: SODIUM CHLORIDE 0.9% 500 ML IV ONE (16:03)
[2025-09-06 17:02] LABS: Anion Gap 10.0 (3-11); Blood Urea Nitrogen 71.0 mg/dl (6-23); Calcium 9.4 mg/dl (8.6-10.3); Carbon Dioxide 20.0 mmol/L (21-32); Chloride 98.0 mmol/L (98-107); Creatinine Clr Calc Pharmacy 14.2 ml/min; Glucose 193.0 mg/dl (70-99(Fasting)); Potassium 4.5 mmol/L (3.5-5.1); Sodium 128.0 mmol/L (136-145)
[2025-09-06] MEDS: SODIUM CHLORIDE 0.9% 500 ML IV SCH (17:34)
[2025-09-06] MEDS ORDERED: POLYETHYLENE (MIRALAX) 17 GM PACK PO PRN (17:53)
[2025-09-06 19:00] LABS: Appearance Urine Clear (Clear); Bacteria Urine Automated None Seen (None Seen); Epithelial Cell Urine Auto 0-2 /hpf (0-2); Glucose Urine UA Trace (Negative); RBC Urine Automated 0-2 /hpf (0-2); WBC Urine Automated 21-50 /hpf (0-5)
[2025-09-06] MEDS ORDERED: VANCOMYCIN HCL 1,750 MG in SODIUM CHLORIDE 0.9% 500 ML IV ONE (19:24)
[2025-09-06] MEDS ORDERED: VANCOMYCIN CONSULT ACTIVE PRN (19:24)
[2025-09-06] MEDS ORDERED: GLUCOSE 40% GEL 15 GM TUBE PO PRN (19:31)
[2025-09-06] MEDS ORDERED: CARBOHYDRATES FOR HYPOGLYCEMIA PO PRN (19:31)
[2025-09-06] MEDS ORDERED: GLUCOSE 10 TAB/TUBE PO PRN (19:31)
[2025-09-06] MEDS ORDERED: DEXTROSE 50% 50 ML SYRINGE IV PRN (19:31)
[2025-09-06] MEDS ORDERED: GLUCAGON FOR INJ 1 MG VIAL SQ PRN (19:31)
[2025-09-06 19:44] LABS: Chlamydia pneumoniae PCR Not Detected (NotDetected); Coronavirus 229E PCR Not Detected (NotDetected); Coronavirus CoV-2 (COVID19)PCR Not Detected (NotDetected); Coronavirus HKU1 PCR Not Detected (NotDetected); Coronavirus NL63 PCR Not Detected (NotDetected); Coronavirus OC43PCR Not Detected (NotDetected); Human Metapneumovirus PCR Not Detected (NotDetected); Parainfluenza Virus 1 PCR Not Detected (NotDetected); Parainfluenza Virus 2 PCR Not Detected (NotDetected); Parainfluenza Virus 3 PCR Not Detected (NotDetected); Parainfluenza Virus 4 PCR Not Detected (NotDetected); Respiratory Syncytial VirusPCR Not Detected (NotDetected); Rhinovirus/Enterovirus PCR Not Detected (NotDetected)
--- NOTE | 2025-09-06 19:50 | Pharmacy Report ---
Pharmacy PK ABX Note - Date of Service September 06, 2025 - Assessment and Plan Assessment * 80 year old F [facility] resident w hx CKD III (baseline SCr ~2.7) and diabetes receiving ceftriaxone and vancomycin empirically. JEFFERSON on CKD noted on admit w SCr elevation to 3.3 mg/dL * Pertinent microbiologic data includes: urine culture pending * Will give one time vancomycin dose low and dose ongoing via level given JEFFERSON / elevated SCr Plan Vancomycin * Loading dose: 1500 mg IV x 1 * Target AUC/MAICOL of 400-600 mg/L.hr (if/when renal function stabilizes and/or is at baseline) * Random level ordered for: 11/7 w AM labs Pharmacy will continue to follow and will adjust dose/frequency as necessary. Thank you. Pharmacy has transitioned to AUC monitoring for vancomycin. AUC/MAICOL is the preferred PK/PD target and is associated with decreased risk of nephrotoxicity compared to traditional trough targets.
[2025-09-06 20:51] LABS: Base Excess VBG -5.9 mEq/L; HCO3 VBG 21 mmol/L; Oxygen Saturation VBG < 60.0 %; PCO2 VBG 46 mmHg (38-50); PO2 VBG 33 mmHg; pH VBG 7.27 (7.36-7.41)
[2025-09-06] MEDS: DOCUSATE SODIUM/SENNA 50/8.6MG TAB PO SCH (21:40)
[2025-09-06] MEDS: VANCOMYCIN HCL 1,500 MG in SODIUM CHLORIDE 0.9% 500 ML IV STA (21:45)
[2025-09-06] MEDS: LACTATED RINGER'S 1,000 ML IV SCH (21:46)
[2025-09-06] MEDS: REMOVE LIDODERM PATCH SCH (21:52)
[2025-09-06] MEDS: INSULIN ASPART PER UNIT CHARGE SC SCH (21:55)
[2025-09-06] MEDS: lamoTRIgine 100 MG TAB PO SCH (21:55)
[2025-09-06 22:59] LABS: Anion Gap 9.0 (3-11); Blood Urea Nitrogen 72.0 mg/dl (6-23); Calcium 8.8 mg/dl (8.6-10.3); Carbon Dioxide 20.0 mmol/L (21-32); Chloride 101.0 mmol/L (98-107); Creatinine Clr Calc Pharmacy 13.8 ml/min; Glucose 125.0 mg/dl (70-99(Fasting)); Potassium 4.1 mmol/L (3.5-5.1); Sodium 130.0 mmol/L (136-145)
[2025-09-06] MEDS ORDERED: Nursing to Pharmacy Communication SCH (23:45)
[2025-09-07] MEDS: cefTRIAXone SODIUM 2,000 MG/50 ML BAG IV SCH (00:47)
[2025-09-07 06:15] LABS: Hematocrit (blood only) 27.4 % (37.0-47.0); Hemoglobin 9.1 g/dl (12.0-16.0); Mean Corpuscular Hemoglobin 30.7 pg (25.0-34.0); Mean Corpuscular Volume 92.6 fL (80.0-100.0); Platelet Count 199 K/uL (130-400); RDW Standard Deviation 44.1 fL (36.4-46.3); Red Blood Count 2.96 M/uL (4.20-5.40); White Blood Count 11.60 K/ul (4.8-10.8)
[2025-09-07] MEDS: ACETAMINOPHEN 325 MG TAB PO PRN (06:19)
[2025-09-07] MEDS: LEVOTHYROXINE SODIUM 125 MCG TABLET PO SCH (06:20)
[2025-09-07 06:36] LABS: Iron < 10 mcg/dl (35-150); Total Iron Binding Cap Calc 256 mcg/dl (250-450); Transferrin 183 mg/dl (200-360)
[2025-09-07 07:01] LABS: Folate (Folic Acid),Ser orPlas > 22.30 ng/ml (>5.38)
[2025-09-07 07:02] LABS: Vitamin B12 516 pg/ml (180-914)
[2025-09-07 07:23] LABS: Ferritin 281.8 ng/ml (8-388)
--- NOTE | 2025-09-07 07:47 | Orthopedic Progress Note ---
Date of Service September 07, 2025 Assessment & Plan (1) Compression fracture of thoracic vertebra: (2) Closed C1 fracture: Plan * Case/imaging reviewed and discussed with Dr Dupont * Patient able to somewhat participate in exam today * No neck pain or radicular symptoms, no pain with ROM with brace removed * May remove c-collar * Thoracic spine discussed with Dr Dupont, T10 fracture not appreciated on review of available CT imaging * Recommend closed management of questionable T10 compression fracture * TLSO brace cancelled * Weight bearing status: activity as tolerated * Daily treatment: Physical Therapy/ Occupational Therapy per protocol * Pain control * Disposition: TBD * Remainder care per primary team * Will follow peripherally, please contact spine team with any increased neck pain or radicular symptoms of the upper extremities. * * Patient seen and examined, not noting significant pain in either the cervical or lumbar spine, notes she had a fracture in the past and had a brace at home that she was not wearing. Will continue to monitor if the patient develops any significant cervical or lumbar symptoms. Subjective . Active Problems: Acute/subacute T10-11 compression fracture, chronic appearing C1 fracture 80y/o female s/p with above injuries found after a fall at assisted living facility. At time of exam this morning patient lying comfortably in bed, slightly more awake than yesterday and more participatory in exam. Denies neck pain, tingling or numbness of her arms, or any weakness. Some tenderness of the mid/low back Review of Systems All systems reviewed & are unremarkable except as noted in HPI & below. Physical Exam . * General: Alert and oriented, no acute distress * Constitutional: well-developed, well-nourished. * Respiratory: Normal respiratory effort, no distress * Gastrointestinal: No tenderness to palpation, no rigidity or guarding. * Skin: No rash or lesion. * Neurologic: Grossly normal * Musculoskeletal: Cervical collar opened for exam. No obvious deformity or overlying skin changes of the cervical region. No TTP of the cervical spine or paraspinals. Limited AROM neck flexion, extension, left/right side rotation without pain of the neck or radicular symptoms down the arms. Shoulder shrug, elbow flexion, machine set up strength 5/5 bilaterally. Sensation intact radial/median/ulnar nerve distributions bilaterally. Results & Data Results & Data Laboratory Results . Diagnostic Findings . PG Care Time/CCT Total # of Minutes Spent Total Time Spent with Patient: Total time spent is greater than 50% in coordination of care (as documented) at patient's floor/unit and/or counseling patient: Coding Level of Care Code 51186 SUB INP/OBS CARE 11/25MIN Diagnoses Compression fracture of thoracic vertebra S22.000A Closed C1 fracture S12.000A
[2025-09-07] MEDS ORDERED: LEVOTHYROXINE SODIUM 125 MCG TABLET PO SCH (09:00)
[2025-09-07 09:14] LABS: Magnesium 1.9 mg/dl (1.7-2.4)
[2025-09-07 09:37] LABS: Base Excess VBG -6.1 mEq/L; HCO3 VBG 19 mmol/L; Oxygen Saturation VBG 93.8 %; PCO2 VBG 35 mmHg (38-50); PO2 VBG 61 mmHg; pH VBG 7.34 (7.36-7.41)
[2025-09-07] MEDS: LANTUS PER UNIT CHARGE SQ SCH (09:46)
[2025-09-07] MEDS: LIDOCAINE 5% 1 PATCH TD SCH (09:46)
[2025-09-07] MEDS: HEPARIN SOD 5,000 UNIT/0.5 ML VIAL SQ SCH (09:46)
[2025-09-07 09:47] LABS: Anion Gap 16.0 (3-11); Calcium 9.2 mg/dl (8.6-10.3); Carbon Dioxide 13.0 mmol/L (21-32); Chloride 105.0 mmol/L (98-107); Potassium 4.5 mmol/L (3.5-5.1); Sodium 134.0 mmol/L (136-145)
[2025-09-07 09:52] LABS: Blood Urea Nitrogen 66.0 mg/dl (6-23); Creatinine Clr Calc Pharmacy 13.9 ml/min; Glucose 118.0 mg/dl (70-99(Fasting))
[2025-09-07] MEDS: SODIUM BICARBONATE 650 MG TAB PO SCH (12:11)
--- NOTE | 2025-09-07 12:33 | Electrocardiogram Report ---
Test Reason : Blood Pressure : */* mmHG Vent. Rate : 68 BPM Atrial Rate : 68 BPM P-R Int : 162 ms QRS Dur : 106 ms QT Int : 402 ms P-R-T Axes : 63 -47 -28 degrees QTcB Int : 427 ms Normal sinus rhythm Left axis deviation Moderate voltage criteria for LVH, may be normal variant ( R in aVL ) Poor R wave progression, consider anterior IL vs. lead placement vs. LVH Nonspecific ST and T wave abnormality Abnormal ECG When compared with ECG of 23-Nov-2024 17:17, Incomplete left bundle block is no longer Present Confirmed by Ye Padilla ([id number]) on 09/07/2025 12:32:56 PM Referred By: [facility] Confirmed By: Ye Padilla
--- NOTE | 2025-09-07 16:14 | Hospitalist Progress Note ---
Date of Service September 07, 2025 Assessment & Plan (1) Cervical spine fracture: (2) Acute kidney injury superimposed on chronic kidney disease: (3) Fracture of thoracic spine: (4) Acute metabolic encephalopathy: Plan This patient is a 80-year-old female resident of [facility] with a PMHx of DMT2, hypothyroid, CKD stage IV, seizure disorder, osteoporosis, PAD, ambulatory dysfunction/wheelchair-bound, anemia, and HLD who presents after a fall. She does not recall the fall but she was found by her bed on the floor. She was very lethargic and confused at the time of admission. Patient was a TRAUMA ALERT in the ED. Initial evaluation concerning for cervical spine fracture thoracic spine fracture and rib fractures as well as hyponatremia and JEFFERSON. Admitted for IV fluids, ortho consultation and further workup. #Acute kidney injury on CKD stage IV/metabolic acidosis-baseline Cr ~2.7, Creatinine 3.29 on admission, likely prerenal from dehydration. No improving to 3.1 with IV fluids. Her serum bicarbonate however has dropped significantly to 13, with an anion gap of 16. Her lactate was normal, and her VBG's with a pH of 7.25. Likely secondary to renal failure. -Can discontinue IV fluids - Start sodium bicarbonate 650 mg p.o. twice daily - Follow serial BMP this afternoon and again in the morning - Monitor urine output-seems to be normal #UTI-UA abnormal and did have low-grade fever since admission, leukocytosis. Urine culture now growing Proteus mirabilis - Continue ceftriaxone but can discontinue vancomycin that was started empirically - Follow urine culture and blood cultures-no growth to date #Fall/cervical Spine fracture/thoracic vertebral compression fracture/rib Fracture - fall out of bed, not on thinners. Trauma Alert. She had extensive imaging to include CT chest/abdomen/pelvis, CT head and face, CT cervical spine, CXR, pelvis x-ray. Imaging reveals age indeterminate C1 fracture, T10 & T11 acute vs subacute vertebral compression fractures and Right 10th rib fracture. CK negative. Patient really has no pain from any of these fractures. Orthopedic spine surgery saw the patient and suspects C1 fracture is chronic and has now removed the c-collar. She is not a good candidate for TLSO brace for the T-spine fractures as she is having no pain and she does not ambulate. -Incentive spirometer for rib fracture -Pain control: prn tylenol, lidocaine patch, and add home tramadol for moderate to severe pain -DVT proph with Heparin given trauma alert #Acute metabolic encephalopathy-likely secondary to acute kidney injury, hyponatremia, significant constipation, and UTI. She was significantly lethargic and altered on admission. Ammonia level normal, with acidosis as noted above. Respiratory BioFire negative, urine drug screen negative. She is now much improved with her mentation and level of alertness after receiving IV fluids, hyponatremia improving, acute kidney injury improving, and treatment for UTI - Continue current treatment - Supportive care - Okay to advance diet to regular #Hyponatremia - acute on chronic, with baseline 130-135. Likely low due to acute kidney injury along with dehydration. Sodium 128 on admission and now up to 134 after receiving IV fluids - Can discontinue IV fluids - Follow BMP in the morning - Holding home sodium chloride tablets while on sodium bicarbonate tablets #Constipation -Moderate stool burden on CT. Now moving bowels somewhat - Continue Senokot/docusate, MiraLAX #DMT2-on Lantus 6 units daily as an outpatient. Recent HgbA1c 7.7%, well- controlled for age and comorbidities. -Continue Lantus and NovoLog care - BSG's, diabetic diet #Elevated troponin-troponin elevated at 70/69/51-myocardial demand ischemia secondary to poor renal clearance, dehydration, and infection. ECG without ischemic changes, no chest pain -Resume home baby aspirin #Seizure disorderno acute issues - Continue Lamictal #HypothyroidTSH 3.2 in 05/2025 - continue Synthroid home dose #Anemia-normocytic, Hgb low at 8 but stable from previous. Iron studies consistent with likely anemia of chronic disease and some iron deficiency. B12 and folate normal, recent TSH normal. Likely chronic disease. No active bleeding -Follow CBC #Mild cognitive impairment/depression-no acute issues - Restart home mirtazapine, risperidone - Supportive care DVT prophylaxis-heparin SQ, SCDs Disposition-continued stay in PCU, improving. Discussed care with daughter on the phone. Likely return to skilled nursing in 2 days if renal function and acidosis continues to improve, awaiting urine culture result Admission and Anticipated Discharge Date Admission Date: September 06, 2025 Subjective Patient is significantly improved today with her mentation. She is awake and alert for most of the day. She reports some pain in her right shoulder but denies headache. She reports that she does not ambulate and uses a wheelchair at the skilled nursing. She is eating today and has no other complaints. She is making urine as per nursing. Telemetry with normal sinus rhythm with rates in the 70s I did discuss her care with her daughter. Physical Exam Physical Exam: General: - Alert: Yes - Oriented: Yes - GCS 15: Yes HEENT: - No pain/tenderness. - Abrasion on forehead - No numbness/tingling - PERLAA. Normal Visual Acuity. N o visual field cuts. No nystagmus. No contact lenses. Normal hearing. No relative afferent pupillary defect. No facial asymmetry. Normal palatal elevation, uvula midline. Midline tongue protrusion. Shoulder shrug with 5/5 strength bilaterally. - Mucous membranes moist. Neck: - Midline Tenderness: No - Cleared C-Spine: Yes-collar rem molina Thorax: - Pain/Tenderness: None - Lacerations/Abrasions: None - Swelling/Ecchymosis: None - Air/Bony Crepitus: None Cardiopulmonary: - Regular Rate and Rhythm. No mur murs, rubs or gallops. - Breath sounds CTAB. No wheezes, rales, or rhonchi. - Symmetrical Chest Rise Abdomen - Pain/Tenderness: None - Lacerations/Abrasions: None - No abdominal distension - Abdominal rigidity/guarding: No ne - Bowel Sounds: Present, normal - Pelvis stable Back/Spine - Lacerations/Abrasions: None - Swelling/Ecchymosis: None - Pain/Tenderness: None - Step-offs: None Extremities: - RUE: No deformity. No laceratio ns/abrasions. No swelling/ecchymosis. No pain/tenderness. Decreased active and passive range of motion in shoulder. Temporary Help Agency Referral Clerk strength, elbow flexion/extension, shoulder flexion/extension/abduction/adduction/external rotation/internal rotation intact with 4/5 strength. Sensation intact to soft touch without deficit. Radial pulse intact, cap refill in the thumb <2 seconds. - LUE: No deformity. No laceratio ns/abrasions. No swelling/ecchymosis. No pain/tenderness. Decreased active and passive range of motion. Temporary Help Agency Referral Clerk strength, elbow flexion/extension, shoulder flexion/extension/abduction/adduction/external rotation/internal rotation intact with 4/5 strength. Sensation intact to soft touch without deficit. Radial pulse intact, cap refill in the thumb <2 seconds. - RLE: No deformity. No laceratio ns/abrasions. No swelling/ecchymosis. No pain/tenderness. Decreased active and passive range of motion. Hip flexion/extension, knee flexion/extension, ankle dorsiflexion/plantarflexion with 5/5 strength. Sensation intact to soft touch without deficit. PT pulse intact to palpation, cap refill in the hallux <2 seconds. - LLE: No deformity. No laceratio ns/abrasions. No swelling/ecchymosis. No pain/tenderness. Decreased active and passive range of motion. Hip flexion/extension, knee flexion/extension, ankle dorsiflexion/plantarflexion with 5/5 strength. Sensation intact to soft touch without deficit. PT pulse intact to palpation, cap refill in the hallux <2 seconds. Mental status Adequate for Full Exam: Yes C-Spine Cleared (Radiologically AND Clinically): Yes Constitutional: WD/WN, vitals as above Respiratory: normal respiratory effort, lungs clear to auscultation Cardiovascular: RRR, no murmur, no edema Gastrointestinal (Abdomen): normal bowel sounds, soft, nontender, no hepatosplenomegaly Musculoskeletal: Extremities: + limited ROM of extremities (Rigid and contracted in all 4 extremities) No tenderness to palpation of right shoulder, her range of motion is limited to 90 degrees of forward flexion which is her baseline Skin: + wound (Right superior mid forehead wit h superficial abrasion, ecchymosis) Psychiatric: Orientation: alert, oriented to person, oriented to place and cooperative Results & Data Results & Data Vital Signs (Past 12 Hours) Vital Signs Temp Pulse Pulse Resp BP BP Pulse Ox 09/07/25 15:53 37.0 C 72 14 140/46 L 95 09/07/25 14:30 69 09/07/25 12:29 09/07/25 12:22 75 09/07/25 10:47 36.5 C 69 15 146/66 H 95 09/07/25 08:15 36.8 C 09/07/25 07:05 37.8 C H 79 32 H 151/59 H 94 O2 Del Method 09/07/25 15:53 Room Air 09/07/25 14:30 09/07/25 12:29 Room Air 09/07/25 12:22 09/07/25 10:47 Room Air 09/07/25 08:15 09/07/25 07:05 Room Air Laboratory Results CBC, BMP, magnesium, VBG, CRP, iron studies, ferritin, B12, folate, vitamin D level, blood cultures reviewed PG Care Time/CCT Total # of Minutes Spent Total Time Spent with Patient: Total time spent is greater than 50% in coordination of care (as documented) at patient's floor/unit and/or counseling patient: Coding Level of Care Code 09484 SUB INP/OBS CARE 3/50MIN Diagnoses Cervical spine fracture S12.9XXA Acute kidney injury superimposed on chronic kidney disease N17.9; N18.9 Fracture of thoracic spine S22.009A Acute metabolic encephalopathy G93.41
[2025-09-07 16:44] LABS: Anion Gap 9.0 (3-11); Blood Urea Nitrogen 58.0 mg/dl (6-23); Calcium 9.2 mg/dl (8.6-10.3); Carbon Dioxide 20.0 mmol/L (21-32); Chloride 107.0 mmol/L (98-107); Creatinine Clr Calc Pharmacy 14.5 ml/min; Glucose 134.0 mg/dl (70-99(Fasting)); Potassium 4.4 mmol/L (3.5-5.1); Sodium 136.0 mmol/L (136-145)
[2025-09-07] MEDS ORDERED: SODIUM CHLORIDE 1 GM TABLET PO SCH (21:00)
[2025-09-07] MEDS: MIRTAZAPINE TAB 15 MG TAB PO SCH (21:31)
[2025-09-07] MEDS: ARTIFICIAL TEARS OP SCH (21:39)
[2025-09-08 06:56] LABS: Hematocrit (blood only) 25.8 % (37.0-47.0); Hemoglobin 8.6 g/dl (12.0-16.0); Immature Granulocytes # (auto) 0.03 K/uL (0.01-0.20); Immature Granulocytes % (auto) 0.4 %; Mean Corpuscular Hemoglobin 31.3 pg (25.0-34.0); Mean Corpuscular Volume 93.8 fL (80.0-100.0); Platelet Count 199 K/uL (130-400); RDW Standard Deviation 45.8 fL (36.4-46.3); Red Blood Count 2.75 M/uL (4.20-5.40); White Blood Count 8.10 K/ul (4.8-10.8)
[2025-09-08 07:01] LABS: Amphetamines, Ur NEGATIVE ng/mL (<500); Amphetemines Ur GC/MS DNR ng/mL (<250); Benzodiazepines,Ur NEGATIVE ng/mL (<100); Cocaine,Ur GC/MS DNR ng/mL (<100); Confirmatory Facility DNR; EDDP DNR ng/mL (<100); Methadone, Ur GC/MS NEGATIVE ng/mL (<100); Oxycodone,Ur Screen NEGATIVE ng/mL (<100); Phencyclidine, Ur NEGATIVE ng/mL (<25); Phencyclidine,Ur GC/MS DNR ng/mL (<25); THC20, Qual, Urine NEGATIVE ng/mL (<20)
[2025-09-08 07:18] LABS: Alanine Aminotransferase 5.0 U/L (7-52); Albumin Globulin Ratio 1.0 (0.9-2); Albumin Level 3.2 gm/dl (3.4-5.0); Alkaline Phosphatase 110.0 U/L (34-104); Anion Gap 9.0 (3-11); Bilirubin,Total 0.2 mg/dl (0.2-1.0); Blood Urea Nitrogen 53.0 mg/dl (6-23); Calcium 9.0 mg/dl (8.6-10.3); Carbon Dioxide 21.0 mmol/L (21-32); Chloride 106.0 mmol/L (98-107); Creatinine Clr Calc Pharmacy 15.3 ml/min; Globulin 3.1 gm/dl (2.5-4.0); Glucose 110.0 mg/dl (70-99(Fasting)); Magnesium 1.8 mg/dl (1.7-2.4); Potassium 4.4 mmol/L (3.5-5.1); Sodium 136.0 mmol/L (136-145); Total Protein 6.3 gm/dl (6.0-8.3)
[2025-09-08] MEDS: CEROVITE ADV FORMULA TAB PO SCH (09:05)
[2025-09-08] MEDS: ASPIRIN 81 MG ECTAB PO SCH (09:05)
--- NOTE | 2025-09-08 14:39 | Hospitalist Progress Note ---
Date of Service September 08, 2025 Assessment & Plan (1) Acute metabolic encephalopathy: (2) Acute kidney injury superimposed on chronic kidney disease: (3) Fracture of thoracic spine: (4) Cervical spine fracture: Plan This patient is a 80-year-old female resident of [facility] with a PMHx of DMT2, hypothyroid, CKD stage IV, seizure disorder, osteoporosis, PAD, ambulatory dysfunction/wheelchair-bound, anemia, and HLD who presents after a fall. She does not recall the fall but she was found by her bed on the floor. She was very lethargic and confused at the time of admission. Patient was a TRAUMA ALERT in the ED. Initial evaluation concerning for cervical spine fracture, thoracic spine fracture, and rib fracture as well as hyponatremia, UTI, and JEFFERSON. #Acute kidney injury on CKD stage IV/metabolic acidosis-baseline Cr ~2.7, Crea tinine 3.29 on admission, likely prerenal from dehydration. Now improved steward/stewardess tourist class to 2.94 with IV fluids. Her serum bicarbonate dropped significantly to 13, with an anion gap of 16. Her lactate was normal, and her VBG was with a pH of 7.25. Acidosis was likely secondary to renal failure. She was started on sodium bicarbonate tablets and this has normalized. -Tolerating regular diet-IV fluids have been stopped -Continue sodium bicarbonate 650 mg p.o. twice daily - Follow BMP in the morning - Monitor urine output-seems to be normal #UTI-UA abnormal and did have low-grade fever after admission, with leukocytosis now resolved. Urine culture growing Proteus mirabilis that is resistant to bi quinolones and Bactrim. - Continue ceftriaxone for now and convert to p.o. cefdinir on discharge to finish out 7-day course on 09/12 - Follow blood cultures-no growth to date #Fall/cervical Spine fracture/thoracic vertebral compression fracture/rib Fracture - fall out of bed, not on thinners. Trauma Alert. She had extensive imaging to include CT chest/abdomen/pelvis, CT head and face, CT cervical spine, CXR, pelvis x-ray. Imaging reveals age indeterminate C1 fracture, T10 & T11 acute vs subacute vertebral compression fractures and Right 10th rib fracture. CK negative. Patient really has no pain from any of these fractures. Orthopedic spine surgery saw the patient and suspects C1 fracture is chronic and has now removed the c-collar. She is not a good candidate for TLSO brace for the T-spine fractures as she is having no pain and she does not ambulate. She did report pain in the posterior neck on 09/08 that was tender to palpation. Repeat CT cervical spine and C-spine x-rays show severe arthritis but no new fracture. -Incentive spirometer for rib fracture -Pain control: prn tylenol, lidocaine patch, and home tramadol for moderate to severe pain -DVT proph with Heparin - Add a second lidocaine patch to the posterior neck - Local wound care to forehead wound #Acute metabolic encephalopathy-likely secondary to acute kidney injury, hyponatremia, significant constipation, and UTI. She was significantly lethargic and altered on admission. Ammonia level normal, with acidosis as noted above. Respiratory BioFire negative, urine drug screen negative. She is now much improved with her mentation and level of alertness after receiving IV fluids, hyponatremia improving, acute kidney injury improving, and treatment for UTI, now moving bowels. - Continue current treatment - Supportive care #Hyponatremia - acute on chronic, with baseline 130-135. Likely low due to acute kidney injury along with dehydration. Sodium 128 on admission and now up to 136 after receiving IV fluids and sodium bicarbonate tablets - Follow BMP in the morning -Discontinue home sodium chloride tablets in favor of starting sodium bicarbonate tablets #Constipation -Moderate stool burden on CT. Now moving bowels - Continue Senokot/docusate, MiraLAX #DMT2-on Lantus 6 units daily as an outpatient. Recent HgbA1c 7.7%, well- controlled for age and comorbidities. -Continue Lantus and NovoLog care - BSGs, diabetic diet #Elevated troponin-troponin elevated at 70/69/51-myocardial demand ischemia secondary to poor renal clearance, dehydration, and infection. ECG without ischemic changes, no chest pain -Continue home baby aspirin #Seizure disorderno acute issues - Continue Lamictal #HypothyroidTSH 3.2 in 05/2025 - continue Synthroid home dose #Anemia-normocytic, Hgb low at 8 but stable from previous. Iron studies consistent with likely anemia of chronic disease and some iron deficiency. B12 and folate normal, recent TSH normal. Likely chronic disease. No active bleeding -Follow CBC #Mild cognitive impairment/depression-no acute issues -Continue home mirtazapine, risperidone - Supportive care DVT prophylaxis-heparin SQ, SCDs Disposition-continued stay but downgrade to medical/surgical unit. Discussed care with daughter at the bedside on 09/08. Plan is to discharge to [facility] on 09/09 if renal function continues to improve Admission and Anticipated Discharge Date Admission Date: September 06, 2025 Subjective Patient complains of pain in the back of her neck that is new since her fall. Otherwise feeling well. She is eating and drinking, denies worsening weakness or numbness in her arms or hands. She is able to feed herself finger foods. Her daughter is at the bedside and reports that the patient is completely back to her normal baseline mentation. Telemetry with normal sinus rhythm with rates in the 60s to 80s Physical Exam Constitutional: WD/WN, vitals as above Neck: Positive TTP over posterior cervical spinous process around C5-C6, limited range of motion of the neck but this seems chronic as per patient Respiratory: normal respiratory effort, lungs clear to auscultation Cardiovascular: RRR, no murmur, no edema Gastrointestinal (Abdomen): normal bowel sounds, soft, nontender, no hepatosplenomegaly Musculoskeletal: Extremities: + limited ROM of extremities (Rigid and contracted in all 4 extremities) Skin: + wound (Right superior mid forehead wit h superficial abrasion, ecchymosis) Psychiatric: Orientation: alert, oriented to person, oriented to place and cooperative Results & Data Results & Data Vital Signs (Past 12 Hours) Vital Signs Temp Pulse Pulse Resp BP BP Pulse Ox 09/08/25 14:31 68 09/08/25 11:41 37.0 C 75 18 162/78 H 98 09/08/25 08:31 09/08/25 07:53 36.5 C 69 18 128/75 98 09/08/25 07:09 68 09/08/25 04:37 36.9 C 73 17 149/73 H 96 O2 Del Method 09/08/25 14:31 09/08/25 11:41 Room Air 09/08/25 08:31 Room Air 09/08/25 07:53 Room Air 09/08/25 07:09 09/08/25 04:37 Room Air Laboratory Results CBC, CMP, magnesium, urine culture reviewed PG Care Time/CCT Total # of Minutes Spent Total Time Spent with Patient: Total time spent is greater than 50% in coordination of care (as documented) at patient's floor/unit and/or counseling patient: Coding Level of Care Code 56683 SUB INP/OBS CARE MIN Diagnoses Acute metabolic encephalopathy G93.41 Acute kidney injury superimposed on chronic kidney disease N17.9; N18.9 Fracture of thoracic spine S22.009A Cervical spine fracture S12.9XXA
--- NOTE | 2025-09-08 16:50 | XRay Report ---
EXAM: Radiographs of the Cervical Spine 3 Views INDICATION: Posttraumatic pain TECHNIQUE: Frontal, lateral and odontoid views performed. COMPARISON: No relevant prior studies available. FINDINGS: Limitations: The bones are markedly demineralized which significantly limits assessment. Additionally, the patient's shoulders significantly obscure visualization of much of the spine. Vertebrae: No gross fracture. No gross subluxation. Diffuse facet arthrosis and degenerative disc change. Soft tissues: No abnormality noted. No radiopaque foreign body noted. Lung apices: No acute abnormality noted. IMPRESSION: Markedly limited. No gross abnormality. Significant abnormality could be present but not appreciated. ACT 112: N/A Electronically signed by Radha Tompkins 09-08-2025 4:50 PM
--- NOTE | 2025-09-08 16:55 | CT Scan Report ---
EXAM: CT Cervical Spine Without Intravenous Contrast INDICATION: Posttraumatic pain. TECHNIQUE: Axial computed tomography images of the cervical spine without intravenous contrast. Sagittal and coronal reformatted images were created and reviewed. This CT exam was performed using one or more of the following dose reduction techniques: automated exposure control, adjustment of the mA and/or kV according to patient size, and/or use of iterative reconstruction technique. COMPARISON: 09/06/2025 FINDINGS: Limitations: None. Vertebrae: Osteoporotic bone density. No acute fracture noted. No subluxation noted. Discs/spinal canal/neural foramina: Stable diffuse severe degenerative changes of the facets and disc spaces. Stable C5-C7 spondylosis and uncal spurring. There is stable severe arthritic sclerosis and narrowing of C1-C2 articulation. There is hypertrophic change of C1 and the occipital condyles which could be arthritic or related to old trauma. Multilevel foraminal stenosis. Soft tissues: No acute abnormality noted. Vasculature: Atherosclerosis of the intracranial vertebral arteries. There is moderate atherosclerosis of the cervical internal carotid arteries. Lung apices: No acute abnormality noted. IMPRESSION: Stable moderate to severe diffuse degenerative changes. No definite acute fracture. ACT 112: N/A Electronically signed by Radha Tompkins 09-08-2025 4:54 PM
[2025-09-08] MEDS: LIDOCAINE 5% 1 PATCH TD STA (18:33)
[2025-09-08] MEDS: REMOVE LIDODERM PATCH SCH (21:51)
[2025-09-09 07:10] LABS: Hematocrit (blood only) 28.3 % (37.0-47.0); Hemoglobin 9.0 g/dl (12.0-16.0); Immature Granulocytes # (auto) 0.02 K/uL (0.01-0.20); Immature Granulocytes % (auto) 0.3 %; Mean Corpuscular Hemoglobin 30.4 pg (25.0-34.0); Mean Corpuscular Volume 95.6 fL (80.0-100.0); Platelet Count 209 K/uL (130-400); RDW Standard Deviation 46.5 fL (36.4-46.3); Red Blood Count 2.96 M/uL (4.20-5.40); White Blood Count 7.05 K/ul (4.8-10.8)
[2025-09-09 07:29] LABS: Anion Gap 7.0 (3-11); Blood Urea Nitrogen 51.0 mg/dl (6-23); Calcium 9.3 mg/dl (8.6-10.3); Carbon Dioxide 23.0 mmol/L (21-32); Chloride 107.0 mmol/L (98-107); Creatinine Clr Calc Pharmacy 15.4 ml/min; Glucose 127.0 mg/dl (70-99(Fasting)); Potassium 4.5 mmol/L (3.5-5.1); Sodium 137.0 mmol/L (136-145)
[2025-09-09] MEDS: LACTATED RINGER'S 1,000 ML IV SCH (11:10)
--- NOTE | 2025-09-09 11:36 | Hospitalist Progress Note ---
Date of Service September 09, 2025 Assessment & Plan (1) Acute metabolic encephalopathy: (2) Acute kidney injury superimposed on chronic kidney disease: (3) Fracture of thoracic spine: (4) Cervical spine fracture: Plan This patient is a 80-year-old female resident of [facility] with a PMHx of DMT2, hypothyroid, CKD stage IV, seizure disorder, osteoporosis, PAD, ambulatory dysfunction/wheelchair-bound, anemia, and HLD who presents after a fall. She does not recall the fall but she was found by her bed on the floor. She was very lethargic and confused at the time of admission. Patient was a TRAUMA ALERT in the ED. Initial evaluation concerning for cervical spine fracture, thoracic spine fracture, and rib fracture as well as hyponatremia, UTI, and JEFFERSON. #Acute kidney injury on CKD stage IV/metabolic acidosis-baseline Cr ~2.7, Creati nine 3.29 on admission, likely prerenal from dehydration. Now improved journey lineman to 2.94 with IV fluids. Her serum bicarbonate dropped significantly to 13, with an anion gap of 16. Her lactate was normal, and her VBG was with a pH of 7.25. Acidosis was likely secondary to renal failure. She was started on sodium bicarbonate tablets and this has normalized. -Continue sodium bicarbonate 650 mg p.o. twice daily - Poor po intake today and minimal improvement in Cr 2.94 --> 2.92, plan for 1l IVFs, recheck in AM, encourage PO fluids AM BMP #UTI-UA abnormal and did have low-grade fever after admission, with leukocytosis now resolved. Urine culture growing Proteus mirabilis that is resistant to bi quinolones and Bactrim. - Continue ceftriaxone for now and convert to p.o. cefdinir on discharge to finish out 7-day course on 09/12 - Follow blood cultures-no growth 48h #Fall/cervical Spine fracture/thoracic vertebral compression fracture/rib Fracture - fall out of bed, not on thinners. Trauma Alert. She had extensive imaging to include CT chest/abdomen/pelvis, CT head and face, CT cervical spine, CXR, pelvis x-ray. Imaging reveals age indeterminate C1 fracture, T10 & T11 acute vs subacute vertebral compression fractures and Right 10th rib fracture. CK negative. Patient really has no pain from any of these fractures. Orthopedic spine surgery saw the patient and suspects C1 fracture is chronic and has now removed the c-collar. She is not a good candidate for TLSO brace for the T-spine fractures as she is having no pain and she does not ambulate. She did report pain in the posterior neck on 09/08 that was tender to palpation. Repeat CT cervical spine and C-spine x-rays show severe arthritis but no new fracture. -Incentive spirometer for rib fracture -Pain control: prn tylenol, lidocaine patch, and home tramadol for moderate to severe pain -DVT proph with Heparin - Add a second lidocaine patch to the posterior neck - Local wound care to forehead wound #Acute metabolic encephalopathy-likely secondary to acute kidney injury, hyponatremia, significant constipation, and UTI. She was significantly lethargic and altered on admission. Ammonia level normal, with acidosis as noted above. Respiratory BioFire negative, urine drug screen negative. She is now much improved with her mentation and level of alertness after receiving IV fluids, hyponatremia improving, acute kidney injury improving, and treatment for UTI, now moving bowels. Family reports back to baseline. #Hyponatremia - acute on chronic, with baseline 130-135. Likely low due to acute kidney injury along with dehydration. Sodium 128 on admission and now up to 136 after receiving IV fluids and sodium bicarbonate tablets -Discontinue home sodium chloride tablets in favor of starting sodium bicarbonate tablets #Constipation -Moderate stool burden on CT. Now moving bowels - Continue Senokot/docusate, MiraLAX #DMT2-on Lantus 6 units daily as an outpatient. Recent HgbA1c 7.7%, well- controlled for age and comorbidities. -Continue Lantus and NovoLog care - BSGs, diabetic diet #Elevated troponin-troponin elevated at 70/69/51-myocardial demand ischemia secondary to poor renal clearance, dehydration, and infection. ECG without ischemic changes, no chest pain -Continue home baby aspirin #Seizure disorder Continue Lamictal #HypothyroidTSH 3.2 in 05/2025, continue Synthroid home dose #Anemia-normocytic, Hgb low at 8 but stable from previous. Iron studies consistent with likely anemia of chronic disease and some iron deficiency. B12 and folate normal, recent TSH normal. Likely chronic disease. No active bleeding -Follow CBC #Mild cognitive impairment/depression-Continue home mirtazapine, risperidone DVT prophylaxis-heparin SQ, SCDs Disposition-continued stay trending kidney function Admission and Anticipated Discharge Date Admission Date: September 06, 2025 Supervising Physician Co-Signing Physician Notes Attending Attestation - Chart reviewed, care plan d/w SANJUANITA Wagner. I agree w/ the mesa components of her documentation. Gerald Duncan MD Subjective patient seen lying in bed, drosy but awakens to verbal stimuli RN reports she refused breakfast this morning - not interested in eating when i offered Does not want liquids either denies pain Review of Systems Review of Systems: All systems reviewed & are unremarkable except as noted in Subjective Physical Exam Physical Exam: General: NAD, VS as above, lying in bed, drowsy Resp: normal respiratory effort, lungs clear to auscultation CV: RRR, no murmur, Abd: normal bowel sounds, non tender, soft Extremities: contractures presentt o all 4 extremities Neuro: A&O x3, Skin: wound on forehead Results & Data Results & Data Vital Signs (Past 12 Hours) Vital Signs Temp Pulse Resp BP Pulse Ox O2 Del Method 09/09/25 07:05 97.7 F 72 20 111/71 97 Room Air 09/09/25 00:01 97.9 F Laboratory Results cbc and chemistry reviewed PG Care Time/CCT Total # of Minutes Spent Total Time Spent with Patient: Total time spent is greater than 50% in coordination of care (as documented) at patient's floor/unit and/or counseling patient: Coding Level of Care Code 82143 SUB INP/OBS CARE 2/35MIN Diagnoses Acute metabolic encephalopathy G93.41 Acute kidney injury superimposed on chronic kidney disease N17.9; N18.9 Fracture of thoracic spine S22.009A Cervical spine fracture S12.9XXA
[2025-09-10 08:25] VITALS: PULSE 74; RESP 16; TEMP 98.1; O2SAT 99
[2025-09-10 09:39] LABS: Anion Gap 7.0 (3-11); Blood Urea Nitrogen 44.0 mg/dl (6-23); Calcium 9.3 mg/dl (8.6-10.3); Carbon Dioxide 25.0 mmol/L (21-32); Chloride 107.0 mmol/L (98-107); Creatinine Clr Calc Pharmacy 15.8 ml/min; Glucose 109.0 mg/dl (70-99(Fasting)); Potassium 4.4 mmol/L (3.5-5.1); Sodium 139.0 mmol/L (136-145)
--- NOTE | 2025-09-10 13:45 | Discharge Summary ---
Discharge Summary Date of Service September 10, 2025 Principal Dx & Hospital Course #1 = Principal Diagnosis (1) Acute metabolic encephalopathy: (2) Acute kidney injury superimposed on chronic kidney disease: (3) Fracture of thoracic spine: (4) Cervical spine fracture: Plan #Fall/cervical Spine fracture/thoracic vertebral compression fracture/rib Fracture This patient is a 80-year-old female resident of [facility] with a PMHx of DMT2, hypothyroid, CKD stage IV, seizure disorder, osteoporosis, PAD, ambulatory dysfunction/wheelchair-bound, anemia, and HLD who presents after a fall. She does not recall the fall but she was found by her bed on the floor. She was very lethargic and confused at the time of admission. Patient was a TRAUMA ALERT in the ED. Initial evaluation concerning for cervical spine fracture, thoracic spine fracture, and rib fracture as well as hyponatremia, UTI, and JEFFERSON. She had extensive imaging to include CT chest/abdomen/pelvis, CT head and face, CT cervical spine, CXR, pelvis x-ray. Imaging reveals age indeterminate C1 fracture, T10 & T11 acute vs subacute vertebral compression fractures and Right 10th rib fracture. CK negative. Patient really has no pain from any of these fractures. Orthopedic spine surgery saw the patient and suspects C1 fracture is chronic and has now removed the c-collar. She is not a good candidate for TLSO brace for the T-spine fractures as she is having no pain and she does not ambulate. She did report pain in the posterior neck on 09/08 that was tender to palpation. Repeat CT cervical spine and C-spine x-rays show severe arthritis but no new fracture.-Pain control: prn tylenol, lidocaine patch, and home tramadol for moderate to severe pain #Acute kidney injury on CKD stage IV/metabolic acidosis-baseline Cr ~2.7, Creatinine 3.29 on admission, likely prerenal from dehydration. Her serum bicarbonate dropped significantly to 13, with an anion gap of 16. Her lactate was normal, and her VBG was with a pH of 7.25. Acidosis was likely secondary to renal failure. She was started on sodium bicarbonate tablets and this has normalized - continue on d/c. Cr improving, back to baseline. #UTI-UA abnormal and did have low-grade fever after admission, with leukocytosis now resolved. Urine culture growing Proteus mirabilis - received ceftriaxone for now and convert to p.o. cefdinir on discharge to finish out 7-day course on 09/12 - Follow blood cultures-no growth 48h #Acute metabolic encephalopathy-likely secondary to acute kidney injury, hy ponatremia, significant constipation, and UTI. She was significantly lethargic and altered on admission. Ammonia level normal, with acidosis as noted above. Respiratory BioFire negative, urine drug screen negative. She is now much improved with her mentation and level of alertness after receiving IV fluids, hyponatremia improving, acute kidney injury improving, and treatment for UTI, now moving bowels. Family reports back to baseline. #Hyponatremia - acute on chronic, with baseline 130-135. Likely low due to acute kidney injury along with dehydration. Sodium 128 on admission and now up to 136 after receiving IV fluids and sodium bicarbonate tablets. Home sodium chloride has been discontinued. #Constipation -Moderate stool burden on CT. Now moving bowels #DMT2-on Lantus 6 units daily as an outpatient. Recent HgbA1c 7.7%, well- controlled for age and comorbidities. No changes to home regimenet. #Elevated troponin-troponin elevated at 70/69/51-myocardial demand ischemia secondary to poor renal clearance, dehydration, and infection. ECG without ischemic changes, no chest pain #Seizure disorder Continue Lamictal #HypothyroidTSH 3.2 in 05/2025, continue Synthroid home dose #Anemia-normocytic, Hgb low at 8 but stable from previous. Iron studies consistent with likely anemia of chronic disease and some iron deficiency. B12 and folate normal, recent TSH normal. Likely chronic disease. No active bleeding -Follow CBC #Mild cognitive impairment/depression-Continue home mirtazapine, risperidone Disposition- return to SNF today Admission HPI Per Admitting Provider Radha is a 80F resident of [facility] with a PMHx of DMT2, hypothyroid, CKD, seizure disorder, osteoporosis, PAD and HLD who presents after a fall. Reportedly had a fall out of bed and landed on her left side. Called her nursing facility for collateral but no labs available to provide information. spoke to daughter, Darling, states that she was at the alf to visit Radha this morning after the fall and thought that she was acting abnormal. Does not know of any recent illness but does know that she was being treated for an elbow infection with antibiotics that was started last Lm. She is unaware of what antibiotic she was on. Was told that she rolled out of bed and was found by the housekeeping person. Daughter reports that Radha is usually needs assistance with transfers and is primarily wheelchair-bound. Radha also needs assistance with feeding. When I evaluated Radha in the ER around 1529 she would complain of pain when I was pressing on her abdomen but would not follow any more commands. I reevaluated her around 1829 when she was up on the floor and at this time she could answer my questions and follow commands. They mainly kept her eyes closed but could open them when I asked her to. She thinks she is in the hospital bec ause of her toe. She knows that it is 2024. Discharge Exam General: NAD, VS as above, lying in bed, drowsy Resp: normal respiratory effort, lungs clear to auscultation CV: RRR, no murmur, Abd: normal bowel sounds, non tender, soft Extremities: contractures presentt o all 4 extremities Neuro: A&O x3, Skin: wound on forehead Discharge Plan Discharge Items Patient Disposition: Transfer Usp Fac Reason For Visit: FALL, CL FRACTURE Discharge Diagnosis: Fall Condition on Discharge: Fair Activity: Resume your previous activity Non-emergency contact: Primary Care Provider Call non-emergency contact if: you have any medication questions and your pain is not controlled Follow-up/Referrals: Christy Valdivia [Primary Care Provider] - Diet: Carb Consistent or DM2 Diet Texture: Easy to Chew Addtl Attending Provider Instructions: Ms. Magdaleno You were hospitalized after a fall out of bed. You were found to have C1 and T10-T11 fractures in your back and one rib fracture. You were seen by orthopedics who thought the C1 fracture was old and nothing to be done. A TLSO brace was offered for the T10-T11 fractures but given your funcitonal status, unable to use this. Continue lidocaine patch and tylenol as needed for pain. You also had a rise in your kidney function, likely from dehydration. This has resolved with IVFs. You were also started on sodium bicarbonate tabs for your chronic kidney disease. You were found to have a UTI and will have 2.5 more days of oral antibiotics. No other changes to your home medications. You have blood cultures pending at the time of discharge, they are negative at 48 hours but take 5 days to get final results. If they turn positive you will be notified, you can also check in with your PCP or the [facility] portal. However, given your symptoms I do not expect they will be positive. Thank you for allowing us to participate in your care! Pending Studies at Discharge: Yes Stand-Alone Forms: My [facility] Skilled Items Patient informed of condition?: Yes DNR: No Discharge Level of Care: Other Communicable Disease: No Discharge Prognosis: Stable Lines: None Urinary Catheter: No Medications and DC Order Prescriptions: New sodium bicarbonate 650 mg Tablet 650 mg PO BID Qty: 60 0RF cefdinir 300 mg capsule 300 mg PO BID Qty: 5 0RF Continued acetaminophen [Tylenol 8 Hour] 650 mg Tablet Extended Release 650 mg PO Q8H MDD 3G PRN (Reason: FEVER/PAIN) Rx Instructions: USE FOR PAIN LEVEL 1-3 OR TEMP >101 aspirin 81 mg Tablet,Delayed Release (Dr/Ec) 81 mg PO QAM Qty: 30 0RF lidocaine 4 % adhesive patch,medicated 1 patch TOPICAL DAILY Rx Instructions: APPLY IN THE MORNING AND REMOVE AT NIGHT insulin glargine [Lantus U-100 Insulin] 100 unit/mL solution 6 unit SUBCUT DAILY levothyroxine 125 mcg tablet 125 mcg PO DAILY sennosides-docusate sodium [Senna-S] 8.6-50 mg Tablet 1 tab-cap PO DAILY lamotrigine 100 mg tablet 100 mg PO BID Refresh Tears PF 0.5-0.9 % Drops 1 drp ophthalmic (eye) BID tramadol 50 mg tablet 50 mg PO Q8 PRN (Reason: PAIN 4-10) triamcinolone acetonide 0.1 % cream See Rx Instructions .ROUTE .COMPLEX Rx Instructions: apply to arms and chest BID for 10 days mirtazapine 15 mg Tablet 15 mg PO HS multivitamin with minerals Tablet 1 tab PO DAILY risperidone 0.5 mg Tablet 0.5 mg PO BID Lactobacillus acidophilus 1 billion cell Capsule 1,000 mmu cells PO DAILY Rx Instructions: take 1 cap daily for 14 days Discontinued prednisone 20 mg Tablet 20 mg PO DAILY Rx Instructions: for 5 days sodium chloride 1,000 mg Tablet,Soluble 1,000 mg PO BID Discharge Orders: Discharge Order (Routine); Ordered 09/10/25 Ordered By: Sejal Wagner Admission Data Admit Date/Time: 09/06/25 15:54 Attending Provider: Gerald Duncan Admit Provider: Hoa Moore Primary Care Provider: Christy Valdivia Other Providers: Skip,; Levon Dupont; Hoa Moore Other Interventions: Discharge Summary Assessment (RN) Last Done: 09/10/25 13:44 Hospital Stay Data Consultations 09/06/25 14:00 Consult Orthopedic Surgery Stat 09/06/25 14:29 ED Decision to Admit Stat Diagnostic Imagining Performed Cervical Spine CT 09/06/25 11:40 CT SCAN OF THE CERVICAL SPINE CLINICAL HISTORY: Trauma. COMPARISON STUDY: Cervical spine CT dated 11/20/2022. TECHNIQUE: CT scan of the cervical spine is performed from the skull base to the upper thoracic spine. Images are reviewed in the axial, sagittal, and coronal planes. IV contrast was not administered for this examination. A dose lowering technique was utilized adhering to the principles of ALARA. CT DOSE: 4135.39 mGy.cm FINDINGS: Skeletal structures: The skeletal structures are osteopenic. There is a fracture through the anterior ring of C1 is seen bilaterally on axial image #196. This age-indeterminate but new from 11/28/2022. There is no edema in the adjacent soft tissues. No additional findings are suspicious for acute fracture. There is no subluxation. Vertebral body height and alignment are maintained. Chronic posttraumatic deformity is noted in the odontoid process. The lateral masses appear intact. The atlantoaxial articulation is preserved noting advanced productive degenerative change. The spinous processes appear intact. There is advanced multilevel cervical spondylosis. Uncovertebral and facet arthropathy contribute to neural foraminal narrowing at most levels. Intervertebral discs: There is moderate disc space narrowing at C6-C7. Mild disc space narrowing is seen at the remaining cervical levels. Central canal: A posterior disc osteophyte complex at C6-C7 may contribute to acquired compromising the central canal. Soft tissues: The prevertebral and paraspinous soft tissues are within normal limits. There is atherosclerotic calcification of the carotid bulbs. Calvarium: The visualized calvarium at the skull base appears intact. Brain parenchyma: Partially visualized brain parenchyma at the skull base is within normal limits. Sinuses and mastoids: There is trace mucosal thickening within left maxillary antrum and the sphenoid sinuses. There is trace right mastoid effusion. The left mastoid air cells are well pneumatized. Cerumen is noted in the right external auditory canal. Lung apices: Clear as visualized. IMPRESSION: 1. There are fractures through the anterior ring of C1 which are age indeterminate but new from 11/28/2022. Subacute or chronic fracture is favored. Clinical correlation will be essential. 2. No additional findings are suspicious for acute fracture. There is no subluxation. 3. Osteopenia with chronic and advanced spondylotic change as above. ACT 112: Negative or not required by law. Electronically signed by: Delta Crespo M.D. 09/06/2025 1:15 PM Chest X-Ray 09/06/25 11:40 XR chest 1V portable CLINICAL HISTORY: Trauma COMPARISON STUDY: 11/23/2024 FINDINGS: Stable cardiomegaly with mild pulmonary vascular congestion. There is mildly increased stranding opacity at the left midlung. No other consolidation or pleural effusion seen. No pneumothorax. Stable old fractures at the proximal humeri. IMPRESSION: Increased stranding at the left mid lung, atelectasis versus early pneumonia. No other adverse change seen. ACT 112: Negative or not required by law. Electronically signed by: Porfirio Wall M.D. 09/06/2025 12:[address] 09/06/25 11:[address] WITHOUT CONTRAST CLINICAL HISTORY: Trauma. COMPARISON STUDY: Facial bone CT April 03, 2020. Head CT November 28, 2022. TECHNIQUE: A maxillofacial CT was performed without IV contrast. Coronal and sagittal reformats were viewed. Automated exposure control was utilized for the study. A dose lowering technique was utilized adhering to the principles of ALARA. FINDINGS: Right facial contusion and forehead contusions are noted. The globes are intact. There is no retrobulbar hematoma. No acute facial bone fracture is identified. Alignment of the temporomandibular joints is anatomic. Numerous teeth are absent. There are several dental caries and periapical lucencies within several maxillary teeth. No skull base fracture is present. Pterygoid plates are intact. There is mild cortical thickening of the left maxillary and ethmoid sinuses. IMPRESSION: No acute facial fracture. Right facial and forehead contusions. ACT 112: Negative or not required by law. Electronically signed by: Aakash Jaramillo M.D. 09/06/2025 12:[address] 09/06/25 11:40 CT head/brain wo con CLINICAL HISTORY: 80 years-old Female with trauma. Acute head trauma TECHNIQUE: Multiple axial CT images of the head were obtained without contrast. A dose lowering technique was utilized adhering to the principles of ALARA. COMPARISON: 11/28/2022 FINDINGS: Motion degraded exam. No acute intracranial hemorrhage, midline shift, intracranial mass, hydrocephalus, territorial ischemia or abnormal extra-axial collection. Involutional changes with white matter hypodensities suggestive of chronic microvascular ischemic disease. Left parietal and right frontal encephalomalacia again noted which has progressed in the right frontal lobe from prior. Cerebellar atrophy. The calvarium is intact. Small anterior frontal scalp contusion. Mild mucosal thickening of the paranasal sinuses. Mastoid air cells are clear. IMPRESSION: No acute intracranial abnormality or calvarial fracture. ACT 112: Negative or not required by law. The above report was generated using voice recognition software. It may contain grammatical, syntax or spelling errors. Electronically signed by: Adan Angel M.D. 09/06/2025 12:54 PM Pelvis X-Ray 09/06/25 11:40 XR pelvis 1-2V routine CLINICAL HISTORY: Trauma COMPARISON: 11/23/2024 FINDINGS: Right hip prosthesis shows no hardware complication. Exam is limited by overlying skinfold and bowel artifact. No acute displaced fracture or dislocation seen at the pelvis or hips. Stable degenerative changes at the left hip. IMPRESSION: Limited exam with no acute fracture seen. ACT 112: Negative or not required by law. Electronically signed by: Porfirio Wall M.D. 09/06/2025 12:57 PM Abdomen/Pelvis CT 09/06/25 11:55 CT OF THE ABDOMEN AND PELVIS WITHOUT CONTRAST CLINICAL HISTORY: Trauma. COMPARISON STUDY: CT of the abdomen and pelvis January 02, 2025 and pelvis and right hip radiographs November 23, 2024. TECHNIQUE: Axial images of the abdomen and pelvis were obtained without IV contrast. Images were reviewed in the axial, sagittal, and coronal planes. Automated exposure control was utilized for the study. A dose lowering technique was utilized adhering to the principles of ALARA. FINDINGS: There is an acute nondisplaced fracture of the lateral right 10th rib. Multiple old bilateral lower rib fractures are present. There is a trace left pleural effusion. Moderate cardiomegaly is again noted. No hemoperitoneum or pneumoperitoneum is present. Evaluation of the solid abdominal viscera is suboptimal as unenhanced exam. However, no evidence for traumatic injury to the liver, spleen, adrenal glands, kidneys or pancreas. There is moderate bilateral renal cortical thinning. Several small nonobstructing bilateral renal calculi are present. There are no ureteral calculi. There is no hydronephrosis. There is a moderate to large amount of stool within the rectum and moderate amount of stool within the colon. Note is made of colonic diverticulosis without evidence for acute diverticulitis. Multiple old lumbar spine compression fractures are present. Severe degenerative changes within the lumbar spine are noted. Right hip arthroplasty is intact. Chronic deformity proximal right femur is noted. Old left pubic ring fractures are incidentally noted. No acute pelvic or hip fracture is identified. IMPRESSION: 1. No acute traumatic findings within the abdomen or pelvis on unenhanced exam. 2. Acute nondisplaced lateral right 10th rib fracture. 3. No acute fractures within the pelvis, hips or lumbar spine. Old lumbar spine and pelvic fractures. 4. Moderate to large amount of stool within the colon and rectum. ACT 112: Negative or not required by law. Electronically signed by: Aakash Jaramillo M.D. 09/06/2025 12:[address] 09/06/25 11:55 CT chest diagnostic wo con CLINICAL HISTORY: 80 years-old Female with trauma. Acute chest trauma TECHNIQUE: Multiaxial CT images of the chest were performed without contrast. A dose lowering technique was utilized adhering to the principles of ALARA. COMPARISON: CT abdomen and pelvis same day and 01/02/2023, without FINDINGS: No dominant thyroid nodule or pathologically enlarged lymph nodes. Mo derate cardiomegaly with moderate coronary artery calcifications. No thoracic aortic aneurysm. Trace left pleural effusion. Left hemidiaphragmatic elevation with left basilar mucous plugging and bibasilar atelectasis, left greater than right with air trapping. There are no suspicious pulmonary nodules or masses identified. Central airways are patent. Small hiatal hernia. Cholecystectomy. CT abdomen and pelvis dictated separately. Unremarkable soft tissues. Severe osteoarthritis of the shoulders. Chronic appearing left sided rib fracture deformities. Subtle acute versus subacute fractures are noted involving the inferior T10 and superior T11 endplates with equivocal additional fractures involving the bridging osteophytes at this interspace. There is only minimal vertebral body height loss at T11. The lateral right 10th rib fracture is not imaged on this exam. IMPRESSION: 1. Subtle acute versus subacute fractures of the T10 and T11 vertebral bodies without retropulsion or significant vertebral body height loss. 2. No acute displaced rib fracture or pneumothorax. 3. Cardiomegaly without overt pulmonary edema. 4. Trace left pleural effusion with bibasilar atelectasis. ACT 112: Negative or not required by law. Electronically signed by: Adan Angel M.D. 09/06/2025 1:[address] 09/08/25 14:45 EXAM: CT Cervical Spine Without Intravenous Contrast INDICATION: Posttraumatic pain. TECHNIQUE: Axial computed tomography images of the cervical spine without intravenous contrast. Sagittal and coronal reformatted images were created and reviewed. This CT exam was performed using one or more of the following dose reduction techniques: automated exposure control, adjustment of the mA and/or kV according to patient size, and/or use of iterative reconstruction technique. COMPARISON: 09/06/2025 FINDINGS: Limitations: None. Vertebrae: Osteoporotic bone density. No acute fracture noted. No subluxation noted. Discs/spinal canal/neural foramina: Stable diffuse severe degenerative changes of the facets and disc spaces. Stable C5-C7 spondylosis and uncal spurring. There is stable severe arthritic sclerosis and narrowing of C1-C2 articulation. There is hypertrophic change of C1 and the occipital condyles which could be arthritic or related to old trauma. Multilevel foraminal stenosis. Soft tissues: No acute abnormality noted. Vasculature: Atherosclerosis of the intracranial vertebral arteries. There is moderate atherosclerosis of the cervical internal carotid arteries. Lung apices: No acute abnormality noted. IMPRESSION: Stable moderate to severe diffuse degenerative changes. No definite acute fracture. ACT 112: N/A Electronically signed by Radha Tompkins 09-08-2025 4:54 PM Cervical Spine X-Ray 09/08/25 14:45 EXAM: Radiographs of the Cervical Spine 3 Views INDICATION: Posttraumatic pain TECHNIQUE: Frontal, lateral and odontoid views performed. COMPARISON: No relevant prior studies available. FINDINGS: Limitations: The bones are markedly demineralized which significantly limits assessment. Additionally, the patient's shoulders significantly obscure visualization of much of the spine. Vertebrae: No gross fracture. No gross subluxation. Diffuse facet arthrosis and degenerative disc change. Soft tissues: No abnormality noted. No radiopaque foreign body noted. Lung apices: No acute abnormality noted. IMPRESSION: Markedly limited. No gross abnormality. Significant abnormality could be present but not appreciated. ACT 112: N/A Electronically signed by Radha Tompkins 09-08-2025 4:50 PM Pending Results Patient Have Any Pending Studies at Discharge: Yes Discharge Instructions Given to Patient (Per Discharging Provider) Ms. Magdaleno You were hospitalized after a fall out of bed. You were found to have C1 and T10-T11 fractures in your back and one rib fracture. You were seen by orthopedics who thought the C1 fracture was old and nothing to be done. A TLSO brace was offered for the T10-T11 fractures but given your funcitonal status, unable to use this. Continue lidocaine patch and tylenol as needed for pain. You also had a rise in your kidney function, likely from dehydration. This has resolved with IVFs. You were also started on sodium bicarbonate tabs for your c hronic kidney disease. You were found to have a UTI and will have 2.5 more days of oral antibiotics. No other changes to your home medications. You have blood cultures pending at the time of discharge, they are negative at 48 hours but take 5 days to get final results. If they turn positive you will be notified, you can also check in with your PCP or the [facility] portal. However, given your symptoms I do not expect they will be positive. Thank you for allowing us to participate in your care! Supervising Physician Co-Signing Physician Notes Attending Attestation and Discharge Note: Chart reviewed, discharge care plan d/w SANJUANITA Wagner. I agree w/ the mesa components of her discharge documentation. Of note - I did not perform a bedside visit or exam on day of discharge. 80yo female - resident of [facility] - with DM, hypothyroidism, CKD stage IV, seizure disorder, osteoporosis, PAD, ambulatory dysfunction/wheelchair- bound, anemia. Presented after an unwitnessed fall. She was found on the floor next to her bed. She was lethargic and confused at the time of presentation. Patient was a TRAUMA ALERT in the ED. Extensive imaging revealed age indeterminate C1 fracture, T10 & T11 acute vs subacute vertebral compression fractures and Right 10th rib fracture. Ortho-spine (Dr Levon Dupont) saw patient in consult; C1 fracture felt to be old/chronic. There was consideration of a TLSO brace but ultimately deferred. In addition the patient had proteus UTI as well as JEFFERSON on CKD stage 4. Proteus UTI treated accordingly with antibiotics. JEFFERSON -- Cr 3.2 on admission, improving to 2.7 on day of discharge (which is about baseline). No obstruction was seen on CT a/p. Finally, had acute metabolic encephalopathy in the setting of low sodium & UTI. Mentation improved with Rx of the UTI and correction of her hyponatremia (126 at admission, improving to 139 at discharge). Gerald Duncan MD Total Time Total Time Spent Total Time Spent (In Minutes): Time spent day of discharge 35 minutes including direct patient care, medication reconciliation, documentation, review of labs and images, and coordination of care. Coding Level of Care Code 27141 INP/OBS DISCH >30 MIN Diagnoses Acute metabolic encephalopathy G93.41 Acute kidney injury superimposed on chronic kidney disease N17.9; N18.9 Fracture of thoracic spine S22.009A Cervical spine fracture S12.9XXA
[2025-09-10 13:46] VITALS: BP 149/64
== END 2025-09-10 14:29 ==
LOC: ED 11:21 → 2E 15:54 → SUATTDRO 15:54 → INTOOBSV 15:54 → 2E 16:46 → 3N 09-08 22:35